=== PATIENT | female | born 1955 | race Caucasian/White ===

== ENCOUNTER → 2024-01-06 | Outpatient (CLI) | payer MEDICARE, OTHER ==
[~2024-01-06] MED LIST: GADOTERATE MEGLUMINE 10 MMOL/20 ML VIAL IV ONE
== END | disposition home or self-care (01) ==
LOC: RAH 12:44
PROVIDERS: ATTEND Family Medicine
DX: R22.1 Localized swelling, mass and lump, neck (principal); G93.89 Other specified disorders of brain; Z86.73 Personal history of transient ischemic attack (TIA), and cerebral infarction without residual deficits
CPT/HCPCS: 70543; A9575

== ENCOUNTER 2025-06-08 16:42 | Inpatient (IN) | payer MEDICARE ==
[~2025-06-08] VITALS: Ht 165.1 cm; Wt 76.2 kg
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
[2025-06-08 17:09] LABS: IMMATURE GRANULOCYTE ABSOLUTE 0.17 K/uL (0-1); NUCLEATED RED BLOOD CELLS 0.3 % (0.0-0.19); PLATELET COUNT (AUTO) 386 K/uL (130-400); RED BLOOD CELL COUNT(AUTO) 3.85 MIL/uL (4.00-5.50); RED CELL DISTRIBUTION WIDTH 20.5 % (11.0-15.5); WHITE BLOOD COUNT (AUTO) 19.7 K/uL (4.8-10.8)
[2025-06-08 17:22] LABS: CREATININE 0.9 mg/dL (0.5-1.0); GLOMERULAR FILTR. RATE CALC 70.0 mL/min (>90); GLUCOSE,RANDOM 140.0 mg/dL (70-105); SODIUM SERUM 122.0 mmol/L (136-145); UREA NITROGEN, BLOOD 23.0 mg/dL (7-18)
[2025-06-08 17:42] VITALS: PULSE 108; RESP 30
[2025-06-08 17:52] LABS: ABG BASE EXCESS -8.1 mmol/L (-2.0-3.0); ABG HCO3 15.0 mmol/L (21.0-28.0); ABG OXYGEN SATURATION 91.2 % (94.0-98.0); ABG PCO2 26 mmHg (32-45); ABG PH 7.386 (7.350-7.450); PO2, ARTERIAL BG 59.9 mmHg (83.0-108.0); TEMPERATURE, CELSIUS BG 37.0 CELSIUS (35.5-37.0); VENT MODE, BG 4 L NC (ROOM AIR)
[2025-06-08] MEDS ORDERED: 0.9%NACL 1000ML 1,000 ML IV ONE (18:00)
[2025-06-08] MEDS ORDERED: furoSEMIDE 100MG VIAL 10 MG/ML VIAL IVP ONE ×2 (18:00→20:00)
[2025-06-08] MEDS: 0.9% NACL 500ML IV.SOLN 500 ML IV ONE (18:05)
[2025-06-08 18:20] VITALS: PULSE 117; RESP 30; O2SAT 96
--- NOTE | 2025-06-08 18:51 | HMCIMG ---
EXAM: CR Chest, 1 View. CLINICAL HISTORY: SHORTNESS A BREATH COMPARISON: None provided. FINDINGS: There is bilateral perihilar and bibasilar airspace disease that may reflect pulmonary edema. Small bilateral pleural effusions. No pneumothorax. Mild to moderate cardiomegaly and pulmonary vascular congestion. IMPRESSION: 1. Bilateral perihilar and bibasilar airspace disease, possibly representing pulmonary edema, with small bilateral pleural effusions. 2. Mild to moderate cardiomegaly and pulmonary vascular congestion. /Lee Vining
--- NOTE | 2025-06-08 19:38 | EKG ---
[facility] Test Date: 2025-06-08 Test Time: 16:55:33 Pat Name: HUGO WYLIE Department: EDH Room: ED Gender: F Authorization Rep: [id number] Requested By: OLVIN DING Order Number: [id number] Reading MD: Rivas Taveras Measurements Intervals [place] Rate: 109 P: 48 [place]: 153 QRS: 7 QRSD: 90 T: 44 QT: 354 QTc: 470 Interpretive Statements Sinus tachycardia Atrial premature complexes Probable left atrial enlargement Low voltage, precordial leads Nonspecific repol abnormality, diffuse leads No previous ECG available for comparison Electronically Signed On 06-08-2025 21:21:25 GLAZE SPRAYER by Rivas Taveras Please click the below link to view image of tracing.
--- NOTE | 2025-06-08 19:58 | HP ---
[facility] Date of Service: Jun 08, 2025 Time of Service: 19:58 PCP: Sergo Diallo HISTORY OF PRESENT ILLNESS: This is a 69-year-old female past medical history of emphysema peripheral neuropathy, atrial fibrillation and hyperthyroidism who was brought by EMS to the ED for complaints of shortness of breaths,dry cough and generalized body weakness which started for the past 3 weeks and getting worse this past few days.Patient reports she lives alone and a current heavy cigarette smoker 1 pack/day.As per patient she has been going to her PCP every week x 3 weeks and was started on steroids prednisone and inhaler and patient also reports was admitted for having atrial fibrillation last 05/09/25 and was seen by at [facility]. Patient reports has not seen a fur sewer.Patient complaints of chest tightness with dry cough for the past 3 weeks but has not improved and its getting worse so she decided to come to the ED .On further evaluation ,patient was asked by the undersigned if it come to appoint where she needs to be orally intubated and patient states she is okay and in the meantime she wants to try the Bipap. Seen and examined patient in the ER awake,alert and appears very short of breath,she has a friend at bedside and helping her from time to time with medical history as patient appears anxious as well.Patient denies chest pain,palpitation,nausea,vomiting and fever. Latest vital signs temperature 98.1, heart rate 110, respiration 35, blood pressure 140/56 saturation 96 on BiPAP 40% FiO2. Labs: WBC 19 with negative left shift of neutrophils 84, hemoglobin 9, hematocrit 30, platelet count 386. Sodium 122, chloride 93, CO2 18, BUN 23, glucose 140, lactic acid 3.1 troponin 112 BNP 3370. D-dimer 3746, PT 15, INR 1.4 PTT 28. Influenza type a and B negative SARS COVID negative. Chest x-ray result revealed bilateral perihilar and bibasilar airspace disease possibly representing pulmonary edema with small bilateral pleural effusion. [id number] cardiomegaly and pulmonary vascular congestion. While in the ER patient received Solu-Medrol 125 mg IV, albuterol two unit dose via inhalation, levofloxacin 750 mg IV, Protonix 40 mg, NS 500 mL bolus, Lasix 80 mg IV and morphine 2 mg IV. Patient was started on Precedex per ICU recommendation. Admit patient for further medical management. REVIEW OF SYSTEMS CONSTITUTIONAL: Denies fevers, chills, or night sweats. No unintentional weight loss reported. NEUROLOGICAL: Denies headache, amaurosis fugax, motor weakness, sensory deficit, vertigo/spinning sensation, gait abnormalities, or tremors. ENT: No hearing loss, otalgia, otorrhea, rhinitis, rhinorrhea, hoarseness, or sore throat. CARDIOVASCULAR: Denies any exertional angina, dyspnea on exertion, orthopnea, paroxysmal nocturnal dyspnea, palpitations, life-threatening arrhythmias, claudication. PULMONARY: Complaints of shortness of breaths, dry cough and chest tightness x3 weeks Denies phlegm/sputum, hemoptysis, pleuritic chest pain. SLEEP: Denies morning headaches, daytime somnolence or napping. Denies difficulty falling asleep, staying asleep, waking from sleep. Denies knowledge of snoring. GASTROINTESTINAL: Denies any type of dysphagia to either liquids or solids. Denies nausea, vomiting, pyrosis, early satiety, abdominal pain, diarrhea, constipation, or changes in stool consistency or caliber. Denies coffee-ground emesis, hematemesis, hematochezia, or melanotic stools. GENITOURINARY: Denies frequency, urgency, nocturia, hematuria or incontinence (Storage/Irritative symptoms.) Low urinary stream, straining to void, urinary i ntermittency or hesitancy, splitting of the voiding stream, terminal dribbling. ENDOCRINOLOGIC: Denies polyuria, polydipsia, polyphagia or heat/cold intolerances. HEMATOLOGIC: Denies thrombophilia/previous clots, or coagulopathy/bleeding disorders. ONCOLOGIC: Denies personal history of malignancy. DERMATOLOGIC: Denies rashes or pruritus. PSYCHIATRIC: Denies any suicidal or homicidal ideation. Denies hallucinations. PAST MEDICAL HISTORY: [ emphysema peripheral neuropathy, atrial fibrillation and hyperthyroidism ] PAST SURGICAL HISTORY: [Left shoulder fracture 2022 ] PAST SOCIAL HISTORY: [ Patient lives alone. Patient admits to smoking one pack of cigarette a day. Patient denies alcohol and recreational drug use ] FAMILY HISTORY: [ Noncontributory ] Coded Allergies: No Known Drug Allergies (Unverified Allergy, Unknown, 06/08/25) PHYSICAL EXAM GENERAL APPEARANCE: The patient is awake, alert, and oriented,moderate respiratory distress NEUROLOGICAL: Cranial nerves II-XII grossly intact. Motor is 5/5 in bilateral upper and lower extremities proximal to distal. No sensory deficits. HEENT: Face is symmetric. Pupils are equal and reactive. Extraocular movements are intact. NECK: Supple. No JVD. No thyromegaly. No submental, submandibular, pre- /postauricular, occipital or supraclavicular lymphadenopathy. CHEST: Normal chest expansion. No Telemetry. LUNGS: tachypneic CARDIOVASCULAR: Tachycardic Regular. S1 and S2 normal. No appreciable rubs, murmurs or gallops. ABDOMEN: Soft, nontender, and nondistended. There is no rebound, voluntary guarding, or rigidity. : Deferred. Gonzalez. EXTREMITIES: Non-edematous and not cyanotic. No clubbing. Good capillary refill. SKIN: No skin breakdown. Vital Sign (Last 24 Hours) 06/08/25 06/08/25 16:45 18:20 Temp 97.9 Pulse 117 Resp 30 B/P (MAP) 136/67 Pulse Ox 96 O2 Delivery Nasal Cannula* O2 Flow Rate 2 FiO2 40 LABS: Laboratory: Test 06/08/25 18:30 06/08/25 17:51 06/08/25 17:04 06/08/25 17:03 Range/Units Lactic Acid Level 3.1 H 0.8-2.5 mmol/L Blood Gas Specimen Type Arterial Arterial Blood pH 7.386 7.350-7.450 Arterial Blood Partial Pressure CO2 26 L 32-45 mmHg Arterial Blood Partial Pressure O2 59.9 L 83.0-108.0 mmHg Arterial Blood HCO3 15.0 L 21.0-28.0 mmol/L Arterial Blood Oxygen Saturation 91.2 L 94.0-98.0 % Arterial Blood Base Excess -8.1 L -2.0-3.0 mmol/L Blood Gas Temperature 37.0 35.5-37.0 CELSIUS Blood Gas Flow-by 4.00 0.00-15.00 L/min Blood Gas Vent Mode 4 L NC ROOM AIR FiO2 36.0 % Blood Gas Specimen Comment RR DR GONSALVES SARS-CoV-2 Antigen (Rapid) PRESUMPTIVE NEGATIVE NEGATIVE White Blood Count 19.7 H 4.8-10.8 K/uL Red Blood Count 3.85 L 4.00-5.50 MIL/uL Hemoglobin 9.7 L 12.0-16.0 g/dL Hematocrit 30.7 L 36-48 % Mean Corpuscular Volume 79.7 79-99 fL Mean Corpuscular Hemoglobin 25.2 L 27.0-33.0 pg Mean Corpuscular Hemoglobin Concent 31.6 L 32.0-36.0 g/dL Red Cell Distribution Width 20.5 H 11.0-15.5 % Platelet Count 386 130-400 K/uL Mean Platelet Volume 9.4 7.5-10.5 fL Immature Granulocyte % (Auto) 0.9 0-1 % Neutrophils (%) (Auto) 84.5 H 40.0-77.0 % Lymphocytes (%) (Auto) 7.8 L 21.0-51.0 % Monocytes (%) (Auto) 6.7 3.0-13.0 % Eosinophils (%) (Auto) 0.0 0.0-8.0 % Basophils (%) (Auto) 0.1 0.0-5.0 % Neutrophils # (Auto) 16.6 H 1.8-7.7 K/uL Lymphocytes # (Auto) 1.5 1.0-4.8 K/uL Monocytes # (Auto) 1.3 H 0.1-1.0 K/uL Eosinophils # (Auto) 0.00 0.00-0.70 K/uL Basophils # (Auto) 0.01 0.00-0.20 K/uL Absolute Immature Granulocyte (auto 0.17 0-1 K/uL Nucleated Red Blood Cells 0.3 H 0.0-0.19 % White Cell Morphology Comment See comments Red Blood Cell Morphology See comments Sodium Level 122 L 136-145 mmol/L Potassium Level 4.4 3.5-5.1 mmol/L Chloride Level 93 L 101-111 mmol/L Carbon Dioxide Level 18 L 21-32 mmol/L Blood Urea Nitrogen 23 H 7-18 mg/dL Creatinine 0.9 0.5-1.0 mg/dL Glomerular Filtration Rate Calc 70 >90 mL/min Random Glucose 140 H 70-105 mg/dL Total Calcium 8.6 8.5-10.1 mg/dL Magnesium Level 2.10 1.80-2.40 mg/dL Troponin I High Sensitivity 112 *H 4-50 ng/L B-Type Natriuretic Peptide 3370 H 0-100 pg/mL DIAGNOSTICS / RADIOLOGY: [ ] ASSESSMENT: Acute hypoxemic respiratory failure POA Acute CHF exacerbation with possible pulmonary edema POA Elevated troponin likely due to type 2 demand ischemia POA Acute COPD exacerbation POA Nicotine Dependence POA Acute anemia POA Acute leukocytosis POA Moderate Hyponatremia and hypochloremia POA Hyperglycemia POA Lactic acidosis POA Hyperthyroidism POA Peripheral neuropathy POA History of emphysema POA History of atrial fibrillation not on anticoagulation PLAN: We will admit patient in ICU Start on clear liquid We will start Lasix 40 mg IV b.i.d. We will start on levofloxacin 500 mg IV daily for empiric coverage We will start on famotidine 20 mg IV daily for GI prophylaxis We will replace electrolytes as needed per protocol We will add prn medication for fever,pain,cough , nausea and vomiting We will reconcile home meds once medlist available Fluid restriction 1.4 L per day Daily weight and strict I&O Gonzalez care per nursing We will request case management service We will seek critical care consultation We will seek Cardiology consultation We will obtain echocardiogram We will request labs in am Further orders to follow depending on above results Case discussed with attending physician and came up with above treatment and plan of care. ADVANCED CARE PLANNING 1. Which of the following were discussed? Hospice Care - No Therapeutic options - Yes Advance Directives - No Other discussions - 2. Discussed with who? Patient 3. Voluntary nature of this service was explained to the patient? Yes 4. Amount of time spent - 26 min 5. Reviewed by Physician? (if this service was performed by NPP) Yes Patient seen and examined by me. Agree with note by YOKER MACHINE OPERATOR SEE ADDITIONAL ORDERS PER CHART DISCUSSED WITH NURSING STAFF RIGOBERTO TADEO FIXER BOARDING ROOM Jun 08, 2025 19:58
[2025-06-08 20:18] LABS: INFLUENZA TYPE A Negative For Type A (NEGATIVE); INFLUENZA TYPE B Negative For Type B (NEGATIVE)
--- NOTE | 2025-06-08 20:27 | CONS ---
[facility] CONSULTATION NOTE Date Patient Seen: Jun 08, 2025 Time of Visit: 20:30 Supervising Physician: [Dr. Luke Morejon] Reason for Consultation: [Critical care management ] Primary Care Physician: [Dr. Yoel Pierson] Outpatient Specialists: [ ] Inpatient Consults: [[facility] team-ICU ] PROBLEM LIST: Acute hypoxic resp failure requiring BIPAP-POA Sepsis 2/2 community acquired pneumonia-POA NSTEMI-likely type II 2/2 demand ischemia from hypoxia vs. true cardiac etiology-POA- negative for chest pain or ST/T wave abnormality. HEART score 6 points=12-16.6% risk for MACE Possible new-onset CHF with exacerbation-POA Hyperlactatemia-POA Acute infectious encephalopathy-POA Suspected new-onset COPD with exacerbation-POA, in the setting of chronic nicotine disorder Pulmonary edema-POA Bilateral pleural effusions-POA Moderate hyponatremia, suspected acute-POA Sleep deprivation 2/2 current illness-POA History of paroxysmal AFib Chronic nicotine disorder: 61-[id number]-mfwk HX Prior CVA Neck and back surgery Detached retina Hyperthyroid disorder/Graves disease with right thyroid nodule HX of left greater trochanter fracture Medical non-compliance, HX of AMA last hospitalization in [facility] PLAN: -Continue critical care management -Titrate oxygen to keep sats >92%, currently on BIPAP: 04/18 rate 14, FiO2-60% -Start on IV Precedex -Obtain CTA chest to r/o P.E. -IV Lasix 40 mg BID -Prevent CAUTI per nursing, on mcdermott for strict I&O -Start on IV Levaquin and Doxycycline for CAP coverage -Obtain pneumo studies -Duoneb treatment -Solumedrol therapy -I.S q1H x 10 while awake -ACS risk stratification: TSH, lipid panel and HgA1c -Obtain echo in am -Monitor and trend troponin -Most likely, will start on IV Heparin drip per ACS protocol due to moderate score of risk of MACE while we r/o P.E. pending CTA chest -Patient agreed to use nicotine patch -the rest of medical management per primary team HPI: [Per Hospitalist's notes: "This is a 69-year-old female past medical history of emphysema peripheral neuropathy, atrial fibrillation and hyperthyroidism who was brought by EMS to the ED for complaints of shortness of breaths,dry cough and generalized body weakness which started for the past 3 weeks and getting worse this past few days.Patient reports she lives alone and a current heavy cigarette smoker 1 pack/day.As per patient she has been going to her PCP every week x 3 weeks and was started on steroids prednisone and inhaler and patient also reports was admitted for having atrial fibrillation last 05/09/25 and was seen by at [facility] [place]. 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 At the time of my assessment, patient is alert and oriented but severely agitated and can not focus on the interview. She keeps on removing her BiPAP despite repeated explanation of her critical condition. Her best friend is beside her and she gave her permission to get interviewed and to give further information regarding her health and medical condition. Lung sounds are diminished on bilateral upper and has fine rales in bilateral bases. She is currently at 50% FiO2 on BiPAP 10/5 rate of 14. Goals of care were discussed with the patient her best friend verbalizes understanding and agreement. On behalf of BIS team, thank you for the opportunity to participate on Ms. Laine carvajal. PAST MEDICAL HX: see above PAST SURGICAL HX: noncontributory SOCIAL HISTORY: (+) 1-pack/day tobacco x>40 years, denies ETOH, or illicit drug use Coded Allergies: No Known Drug Allergies (Unverified Allergy, Unknown, 06/08/25) REVIEW OF SYSTEMS: 12 point ROS reviewed with patient. Pertinent positives mentioned above. Otherwise negative. PHYSICAL EXAM: GENERAL: alert, awake oriented x 3 HEENT: EOMI, Sclera non icteric, dry mucosa NECK: Supple, no JVD, trachea midline LUNGS: Diminished breath sounds bilateral upper and fine rales on bobby bases. No wheezes HEART: Regular rate and rhythm. Normal S1 and S2, without murmurs, tachycardia ABD: Abdomen soft, nontender. Bowel sounds present EXT: No clubbing cyanosis or edema NEURO: Alert and oriented to person, follows commands, extremely agitated- Precedex started Vital Signs (last 8hr) Date Time Temp Pulse Resp B/P (MAP) Pulse Ox O2 Delivery O2 Flow Rate FiO2 06/08/25 18:20 117 30 40 06/08/25 17:42 108 30 06/08/25 16:45 97.9 98 21 136/67 96 Nasal Cannula* 2 28 06/08/25 16:45 97.9 98 21 136/67 96 Nasal Cannula 2.0 LABS: Hematology Labs: Test 06/08/25 17:03 Range/Units White Blood Count 19.7 H 4.8-10.8 K/uL Red Blood Count 3.85 L 4.00-5.50 MIL/uL Hemoglobin 9.7 L 12.0-16.0 g/dL Hematocrit 30.7 L 36-48 % Mean Corpuscular Volume 79.7 79-99 fL Mean Corpuscular Hemoglobin 25.2 L 27.0-33.0 pg Mean Corpuscular Hemoglobin Concent 31.6 L 32.0-36.0 g/dL Red Cell Distribution Width 20.5 H 11.0-15.5 % Platelet Count 386 130-400 K/uL Mean Platelet Volume 9.4 7.5-10.5 fL Immature Granulocyte % (Auto) 0.9 0-1 % Neutrophils (%) (Auto) 84.5 H 40.0-77.0 % Lymphocytes (%) (Auto) 7.8 L 21.0-51.0 % Monocytes (%) (Auto) 6.7 3.0-13.0 % Eosinophils (%) (Auto) 0.0 0.0-8.0 % Basophils (%) (Auto) 0.1 0.0-5.0 % Neutrophils # (Auto) 16.6 H 1.8-7.7 K/uL Lymphocytes # (Auto) 1.5 1.0-4.8 K/uL Monocytes # (Auto) 1.3 H 0.1-1.0 K/uL Eosinophils # (Auto) 0.00 0.00-0.70 K/uL Basophils # (Auto) 0.01 0.00-0.20 K/uL Absolute Immature Granulocyte (auto 0.17 0-1 K/uL Nucleated Red Blood Cells 0.3 H 0.0-0.19 % White Cell Morphology Comment See comments Red Blood Cell Morphology See comments Chemistry Labs: Test 06/08/25 18:30 06/08/25 17:03 Range/Units Lactic Acid Level 3.1 H 0.8-2.5 mmol/L Sodium Level 122 L 136-145 mmol/L Potassium Level 4.4 3.5-5.1 mmol/L Chloride Level 93 L 101-111 mmol/L Carbon Dioxide Level 18 L 21-32 mmol/L Blood Urea Nitrogen 23 H 7-18 mg/dL Creatinine 0.9 0.5-1.0 mg/dL Glomerular Filtration Rate Calc 70 >90 mL/min Random Glucose 140 H 70-105 mg/dL Total Calcium 8.6 8.5-10.1 mg/dL Magnesium Level 2.10 1.80-2.40 mg/dL Troponin I High Sensitivity 112 *H 4-50 ng/L B-Type Natriuretic Peptide 3370 H 0-100 pg/mL DIAGNOSTICS / RADIOLOGY RESULTS: [ ] PLAN NEURO: Minimize central acting medications as possible. Fall Precautions. Well lighted room through the day and minimize interruptions through the night to prevent acute delirium. PULMONARY: Supplemental 02 as needed Titrate Fio2 to keep Spo2 > or = 90% DuoNebs and CPT as needed IS hourly while awake for pulmonary hygiene Out of bed to chair as tolerated VAP Bundle Vent/BIPAP Settings: [ ] Driving pressure: [ ] P Plat: [ ] Static C: [ ] Static R: [ ] P/F Ratio: [ ] CARDIOVASCULAR: Follow hemodynamics. Titrate vasopressor to keep MAP >65 or systolic blood pressure >95mmHg DRIPS: [Precedex] LINES: [ ] GI & NUTRITION: Continue nutritional support Aspirations precautions Prokinetic agents and laxatives as needed KIDNEYS & ELECTROLYTES: Strict monitoring of intake and output Daily weights Avoid nephrotoxic agents Monitor electrolytes and replace as needed Goal urine output of 30mL/hr or 0.5mL/kg/hr Urine output: [ ] Fluid Balance: [ ] ENDOCRINE: Maintain blood glucose between 100-180 at all times. Insulin sliding scale for blood glucose management INFECTIOUS DISEASE: Trend temperature. Dubois-culture if febrile. Micro: [ ] Antibiotics: [IV Zosyn and Doxycycline ] HEMATOLOGY & COAGULATION: Monitor H&H. Keep Hgb > 7 Transfuse 1 unit of PRBC for Hgb < 7 Transfuse 1 pack of platelets of platelets < 20, 000 Watch for any signs and symptoms of bleeding SKIN: Pressure ulcer prevention per facility protocol Rehab: PT/OT Prophylaxis: GI: [Pepcid ] DVT: [Heparin] Code Status: Full Resuscitation Disposition: [ICU] Other: Total patient care time: 45 minutes JOHN NGUYEN AGACNP Jun 08, 2025 20:27
[2025-06-08 20:32] VITALS: PULSE 103; RESP 25; O2SAT 89
[2025-06-08] MEDS: furoSEMIDE 100MG VIAL 10 MG/ML VIAL IVP ONE (20:37)
[2025-06-08 21:03] LABS: ADD UA MICROSCOPIC YES; APPEARANCE,URINE CLEAR (CLEAR); GLUCOSE, URINE (UA) NEGATIVE (NEGATIVE); LEUKOCYTE ESTERASE ,URINE NEGATIVE Leu/uL (NEGATIVE); NITRATE,URINE NEGATIVE (NEGATIVE); OCCULT BLOOD,URINE NEGATIVE (NEGATIVE)
[2025-06-08 21:08] LABS: INR 1.49 (0.85-1.15)
[2025-06-08 21:11] LABS: SQUAMOUS EPITHELIAL CELL,UR Rare /HPF (0-2)
[2025-06-08 22:20] VITALS: PULSE 98; RESP 30; O2SAT 98
[2025-06-08 22:21] LABS: ABG BASE EXCESS -10.0 mmol/L (-2.0-3.0); ABG HCO3 14.8 mmol/L (21.0-28.0); ABG OXYGEN SATURATION 94.5 % (94.0-98.0); ABG PCO2 30 mmHg (32-45); ABG PH 7.310 (7.350-7.450); PO2, ARTERIAL BG 76.9 mmHg (83.0-108.0); TEMPERATURE, CELSIUS BG 37.0 CELSIUS (35.5-37.0); VENT MODE, BG BIPAP 14,5 (ROOM AIR)
--- NOTE | 2025-06-08 22:57 | NUR ---
CALLED PAULO ([facility]) CONSENTED WITH CHEST CT
[2025-06-08] MEDS: ZOSYN 3.375GM +NS 50ML IV SCH (23:18)
[2025-06-08] MEDS: DOXYCYCLINE 100MG+NS 250ML 250 ML IV SCH (23:18)
[2025-06-08] MEDS: NICOTINE 21 MG/ 24 HR PATCH TD SCH (23:19)
[2025-06-08] MEDS ORDERED: IOHEXOL-350 50ML VIAL IV ONE (23:38)
[2025-06-09] VITALS (93 sets, daily range): BP systolic 94–163; BP diastolic 27–96; PULSE 70–134; RESP 14–35; TEMP 96.6–98.2; O2SAT 95–100
--- NOTE | 2025-06-09 00:12 | NUR ---
Changes made to BiPAP settings as per orders: BiPAP /, R14, 60%
--- NOTE | 2025-06-09 00:57 | HMCIMG ---
EXAM: CTA examination of the chest CLINICAL HISTORY: Rule out pulmonary embolism. TECHNIQUE: Postcontrast thin collimated axial CTA images of the chest were obtained with sagittal and coronal reformatted images also submitted. CT scan is done according to ALARA (As Low as Reasonably Achievable). COMPARISON: None provided. FINDINGS: Moderate pleural effusions bilaterally. Compressive atelectasis and consolidations in the bilateral lower lobes of the lung. Multifocal infiltrates and smooth interstitial thickening in the bilateral lung alejandro, reflecting multifocal pneumonia and pulmonary edema. No pneumothorax or masses evident. Small to medium pericardial effusion. Mild to moderate cardiomegaly. Calcific atherosclerotic disease in the thoracic aorta and coronary arteries. No thoracic aortic aneurysm. Dilated pulmonary trunk measures up to 4.4 cm in diameter. Perihilar vascular congestion. No filling defect or pulmonary thromboembolism is evident Mildly reactive mediastinal lymph nodes. Incidental thyroid nodules. Incidental mildly thickened bilateral adrenal glands. Atherosclerotic calcifications in the abdominal vessels. No acute bony abnormality is evident. Degenerative osseous changes. Chronic compression fracture in the T12 vertebral body with about 70% to 80% height reduction. IMPRESSION: No pulmonary thromboembolism. Small to medium pericardial effusion, cardiomegaly, pulmonary vascular congestion, pulmonary edema, and multifocal pneumonia in the bilateral lung alejandro. Moderate pleural effusions bilaterally. Compressive atelectasis and consolidations in the bilateral lower lobes of the lung. Mildly reactive mediastinal lymph nodes. No pneumothorax. Incidental thyroid nodules recommend ultrasound correlation. Incidental mildly enlarged bilateral adrenal glands, recommend a contrast-enhanced MRI of the adrenals for further characterization, if clinically indicated. /Katherine
[2025-06-09] MEDS: NOREPINEPHRIN 4MG/NS 250ML 250 ML IV SCH (01:11)
[2025-06-09] MEDS: NOREPINEPHRIN 4MG/NS 250ML 250 ML IV ONE (01:11)
[2025-06-09] MEDS ORDERED: PHARMACY COMMUNICATION MISC SCH (03:00)
--- NOTE | 2025-06-09 03:20 | NUR ---
PATIENT ARRIVED ON UNIT TO ROOM 215, NO FAMILY AT BEDSIDE. PATIENT IS UNABLE TO ANSWER ADMISSION QUESTIONS DUE TO BEING ON BIPAP AND ORIENTATION STATUS AND ON PRECEDEX DRIP. NO MEDICATIONS WITH PATIENT PER ER NURSE, FRIEND THAT WAS WITH HER IN ER DEPARTMENT WAS ASKED TO BRING IN MEDICATIONS. ER NURSE STATED IN REPORT PATIENTS SON WAS PRESENT EARLIER AND WAS NOT TOO FAMILIAR WITH PATIENTS HISTORY OR MEDICATIONS DUE TO CONFLICT IN FAMILY DYNAMICS.
[2025-06-09 04:15] LABS: IMMATURE GRANULOCYTE ABSOLUTE 0.20 K/uL (0-1); NUCLEATED RED BLOOD CELLS 0.2 % (0.0-0.19); PLATELET COUNT (AUTO) 323 K/uL (130-400); RED BLOOD CELL COUNT(AUTO) 3.67 MIL/uL (4.00-5.50); RED CELL DISTRIBUTION WIDTH 20.4 % (11.0-15.5); WHITE BLOOD COUNT (AUTO) 17.4 K/uL (4.8-10.8)
[2025-06-09 04:34] LABS: INR 1.54 (0.85-1.15)
[2025-06-09 04:35] LABS: ERYTHROCYTE SEDIMENTATION RATE 20 MM/HR (0-30)
[2025-06-09 05:04] LABS: CREATININE 1.0 mg/dL (0.5-1.0); GLOMERULAR FILTR. RATE CALC 61.0 mL/min (>90); GLUCOSE,RANDOM 141.0 mg/dL (70-105); LDL DIRECT 114.0 mg/dL (0-99); SODIUM SERUM 124.0 mmol/L (136-145); TOTAL PROTEIN, SERUM 6.4 g/dL (6.0-8.3); UREA NITROGEN, BLOOD 28.0 mg/dL (7-18)
[2025-06-09 05:14] LABS: ASPARTATE AMINOTRANSFERASE 1479.0 U/L (10-37)
[2025-06-09 08:20] LABS: ABG BASE EXCESS -11.6 mmol/L (-2.0-3.0); ABG HCO3 12.8 mmol/L (21.0-28.0); ABG OXYGEN SATURATION 95.9 % (94.0-98.0); ABG PCO2 25 mmHg (32-45); ABG PH 7.333 (7.350-7.450); CARBON MONOXIDE 0.6 % (0.5-1.5); DEVICE COMMENT RN BRIZA; PO2, ARTERIAL BG 95.1 mmHg (83.0-108.0); TEMPERATURE, CELSIUS BG 37.0 CELSIUS (35.5-37.0)
[2025-06-09] MEDS: FAMOTIDINE 20MG VIAL IV SCH (08:39)
[2025-06-09 09:01] LABS: SODIUM SERUM 125.0 mmol/L (136-145)
--- NOTE | 2025-06-09 10:25 | PN ---
[facility] PROGRESS NOTE Date of Service: Jun 09, 2025 Time of Service: 10:25 SUBJECTIVE: HISTORY OF PRESENT ILLNESS: This is a 69-year-old female past medical history of emphysema peripheral neuropathy, atrial fibrillation and hyperthyroidism who was brought by EMS to the ED for complaints of shortness of breaths,dry cough and generalized body weakness which started for the past 3 weeks and getting worse this past few days.Patient reports she lives alone and a current heavy cigarette smoker 1 pack/day.As per patient she has been going to her PCP every week x 3 weeks and was started on steroids prednisone and inhaler and patient also reports was admitted for having atrial fibrillation last 05/09/25 and [place] [facility] [place] Patient reports has not seen a discharge specialist.Patient complaints of chest tightness with dry cough for the past 3 weeks but has not improved and its getting worse so she decided to come to the ED .On further evaluation ,patient was asked by the undersigned if it come to appoint where she needs to be orally intubated and patient states she is okay and in the meantime she wants to try t he Bipap. Seen and examined patient in the ER awake,alert and appears very short of breath,she has a friend at bedside and helping her from time to time with medical history as patient appears anxious as well.Patient denies chest pain,palpitation,nausea,vomiting and fever. Latest vital signs temperature 98.1, heart rate 110, respiration 35, blood pressure 140/56 saturation 96 on BiPAP 40% FiO2. Labs: WBC 19 with negative left shift of neutrophils 84, hemoglobin 9, hematocrit 30, platelet count 386. Sodium 122, chloride 93, CO2 18, BUN 23, glucose 140, lactic acid 3.1 troponin 112 BNP 3370. D-dimer 3746, PT 15, INR 1.4 PTT 28. Influenza type a and B negative SARS COVID negative. Chest x-ray result revealed bilateral perihilar and bibasilar airspace disease possibly representing pulmonary edema with small bilateral pleural effusion. [id number]-[id number] cardiomegaly and pulmonary vascular congestion. While in the ER patient received Solu-Medrol 125 mg IV, albuterol two unit dose via inhalation, levofloxacin 750 mg IV, Protonix 40 mg, NS 500 mL bolus, Lasix 80 mg IV and morphine 2 mg IV. Patient was started on Precedex per ICU rec ommendation. Admit patient for further medical management. 06/09/2025: The patient was seen and evaluated bedside in ICU, no family at bedside. Patient is agitated, anxious on max doses of Precedex, saturating 100% with FiO2 60 on BiPAP. Patient is currently on norepinephrine drip 0.05 mcg/mL/kg and heparin drip q.[address] chest showed no pulmonary thromboembolism, small to medium pericardial effusion, cardiomegaly, pulmonary vascular congestion, pulmonary edema and multifocal pneumonia in bilateral lung alejandro. Continue Zosyn, doxycycline, IV Lasix, Solu-Medrol IV. Morning lab showed white count 17.4, sodium 124, bicarb 14, lactic acid 3.7, troponin 178, BNP 3060, AST 1479, ALT 561. Patient has bicarb deficit of 336, we ordered sodium bicarbonate 100 mEq single dose and we will repeat bicarb this evening. Nephrology, Cardiology, critical Care on board we will continue to follow the recommendations. REVIEW OF SYSTEMS CONSTITUTIONAL: Denies fevers, chills, or night sweats. No unintentional weight loss reported. NEUROLOGICAL: Denies headache, amaurosis fugax, motor weakness, sensory deficit, vertigo/spinning sensation, gait abnormalities, or tremors. ENT: No hearing loss, otalgia, otorrhea, rhinitis, rhinorrhea, hoarseness, or sore throat. CARDIOVASCULAR: Denies any exertional angina, dyspnea on exertion, orthopnea, paroxysmal nocturnal dyspnea, palpitations, life-threatening arrhythmias, claudication. PULMONARY: Complaints of shortness of breaths, dry cough and chest tightness x3 weeks Denies phlegm/sputum, hemoptysis, pleuritic chest pain. SLEEP: Denies morning headaches, daytime somnolence or napping. Denies difficulty falling asleep, staying asleep, waking from sleep. Denies knowledge of snoring. GASTROINTESTINAL: Denies any type of dysphagia to either liquids or solids. Denies nausea, vomiting, pyrosis, early satiety, abdominal pain, diarrhea, constipation, or changes in stool consistency or caliber. Denies coffee-ground emesis, hematemesis, hematochezia, or melanotic stools. GENITOURINARY: Denies frequency, urgency, nocturia, hematuria or incontinence (Storage/Irritative symptoms.) Low urinary stream, straining to void, urinary intermittency or hesitancy, splitting of the voiding stream, terminal dribbling. ENDOCRINOLOGIC: Denies polyuria, polydipsia, polyphagia or heat/cold intolerances. HEMATOLOGIC: Denies thrombophilia/previous clots, or coagulopathy/bleeding disorders. ONCOLOGIC: Denies personal history of malignancy. DERMATOLOGIC: Denies rashes or pruritus. PSYCHIATRIC: Denies any suicidal or homicidal ideation. Denies hallucinations. PHYSICAL EXAM GENERAL APPEARANCE: The patient is awake, alert, and oriented,moderate respiratory distress NEUROLOGICAL: Cranial nerves II-XII grossly intact. Motor is 5/5 in bilateral upper and lower extremities proximal to distal. No sensory deficits. HEENT: Face is symmetric. Pupils are equal and reactive. Extraocular movements are intact. NECK: Supple. No JVD. No thyromegaly. No submental, submandibular, pre-/postauricular, occipital or supraclavicular lymphadenopathy. CHEST: Normal chest expansion. No Telemetry. LUNGS: tachypneic CARDIOVASCULAR: Tachycardic Regular. S1 and S2 normal. No appreciable rubs, murmurs or gallops. ABDOMEN: Soft, nontender, and nondistended. There is no rebound, voluntary guarding, or rigidity. : Deferred. Gonzalez. EXTREMITIES: Non-edematous and not cyanotic. No clubbing. Good capillary refill. SKIN: No skin breakdown. Vital Signs (last 8hr) Date Time Temp Pulse Resp B/P (MAP) Pulse Ox O2 Delivery O2 Flow Rate FiO2 06/09/25 09:30 84 24 122/56 (78) 94 06/09/25 09:15 90 24 130/58 (82) 94 06/09/25 09:00 93 24 137/59 (85) 94 06/09/25 08:45 102 29 143/63 (89) 96 06/09/25 08:30 106 24 141/70 (93) 93 06/09/25 08:15 97 34 126/58 (80) 100 06/09/25 08:00 98 Bi-PAP+ 60 06/09/25 08:00 87 28 117/54 (75) 98 06/09/25 08:00 97.5 06/09/25 07:45 92 28 137/61 (86) 99 06/09/25 07:30 106 27 138/66 (90) 99 06/09/25 07:15 105 35 125/96 (106) 96 06/09/25 07:00 105 26 127/78 (94) 87 06/09/25 06:45 81 21 124/55 (78) 100 06/09/25 06:32 77 21 06/09/25 06:30 81 23 117/51 (73) 100 06/09/25 06:29 81 22 60 06/09/25 06:15 80 22 116/51 (72) 100 06/09/25 06:00 84 22 119/56 (77) 100 06/09/25 05:30 83 23 128/56 (80) 100 06/09/25 05:15 80 23 116/51 (72) 100 06/09/25 05:00 80 22 122/53 (76) 100 06/09/25 04:45 88 23 136/58 (84) 100 06/09/25 04:30 92 25 138/64 (88) 100 06/09/25 04:15 86 24 128/59 (82) 100 06/09/25 04:00 93 25 139/63 (88) 100 06/09/25 03:45 87 24 118/61 (80) 100 06/09/25 03:30 87 20 118/61 (80) 100 06/09/25 03:27 96.6 06/09/25 03:15 84 21 130/54 (79) 100 06/09/25 03:10 98.1 89 23 98/42 98 Bi-PAP+ 2.0 40 06/09/25 03:00 80 23 120/52 (74) 100 06/09/25 03:00 99 Bi-PAP+ 60 LABS: Laboratory: Test 06/09/25 08:31 06/09/25 08:18 06/09/25 04:04 06/08/25 20:49 Range/Units Sodium Level 125 L 136-145 mmol/L Lactic Acid Level 3.9 H 0.8-2.5 mmol/L Ammonia 26 11-32 umol/L Blood Gas Specimen Type Arterial Arterial Blood pH 7.333 L 7.350-7.450 Arterial Blood Partial Pressure CO2 25 L 32-45 mmHg Arterial Blood Partial Pressure O2 95.1 83.0-108.0 mmHg Arterial Blood HCO3 12.8 L 21.0-28.0 mmol/L Arterial Blood Oxygen Saturation 95.9 94.0-98.0 % Arterial Blood Base Excess -11.6 L -2.0-3.0 mmol/L Hemoglobin (Blood Gas) 10.6 L 12.0-16.0 g/dL Sodium (Blood Gas) 128 L 136-145 MMOL/L Bedside Potassium (Blood Gas) 4.5 3.4-4.5 MMOL/L Bedside Chloride (Blood Gas) 103 98-107 MMOL/L Bedside Glucose (Blood Gas) 135 H 65-95 MG/DL Bedside Ionized Calcium (Blood Gas) 1.11 L 1.15-1.33 MMOL/L Bedside Lactic Acid (Blood Gas) 4.00 *H 0.36-0.75 MMOL/L Blood Gas Temperature 37.0 35.5-37.0 CELSIUS Blood Gas Respiration Rate 16.0 min. Blood Gas Vent Mode BIPAP12,6 ROOM AIR FiO2 60.0 % Blood Gas PEEP 6 cm H2O Blood Gas Specimen Comment RN DEENA White Blood Count 17.4 H 4.8-10.8 K/uL Red Blood Count 3.67 L 4.00-5.50 MIL/uL Hemoglobin 9.3 L 12.0-16.0 g/dL Hematocrit 29.9 L 36-48 % Mean Corpuscular Volume 81.5 79-99 fL Mean Corpuscular Hemoglobin 25.3 L 27.0-33.0 pg Mean Corpuscular Hemoglobin Concent 31.1 L 32.0-36.0 g/dL Red Cell Distribution Width 20.4 H 11.0-15.5 % Platelet Count 323 130-400 K/uL Mean Platelet Volume 10.0 7.5-10.5 fL Immature Granulocyte % (Auto) 1.1 H 0-1 % Neutrophils (%) (Auto) 90.4 H 40.0-77.0 % Lymphocytes (%) (Auto) 4.4 L 21.0-51.0 % Monocytes (%) (Auto) 4.0 3.0-13.0 % Eosinophils (%) (Auto) 0.0 0.0-8.0 % Basophils (%) (Auto) 0.1 0.0-5.0 % Neutrophils # (Auto) 15.7 H 1.8-7.7 K/uL Lymphocytes # (Auto) 0.8 L 1.0-4.8 K/uL Monocytes # (Auto) 0.7 0.1-1.0 K/uL Eosinophils # (Auto) 0.00 0.00-0.70 K/uL Basophils # (Auto) 0.01 0.00-0.20 K/uL Absolute Immature Granulocyte (auto 0.20 0-1 K/uL Nucleated Red Blood Cells 0.2 H 0.0-0.19 % Erythrocyte Sedimentation Rate 20 0-30 MM/HR Prothrombin Time 15.6 H 9.6-11.6 SEC Prothromb Time International Ratio 1.54 H 0.85-1.15 Activated Partial Thromboplast Time 30.4 26.3-35.5 SEC Potassium Level 4.0 3.5-5.1 mmol/L Chloride Level 95 L 101-111 mmol/L Carbon Dioxide Level 14 L 21-32 mmol/L Blood Urea Nitrogen 28 H 7-18 mg/dL Creatinine 1.0 0.5-1.0 mg/dL Glomerular Filtration Rate Calc 61 >90 mL/min Random Glucose 141 H 70-105 mg/dL Total Calcium 8.0 L 8.5-10.1 mg/dL Magnesium Level 1.90 1.80-2.40 mg/dL Total Bilirubin 1.4 H 0.2-1.0 mg/dL Aspartate Amino Transf (AST/SGOT) 1479 *H 10-37 U/L Alanine Aminotransferase (ALT/SGPT) 561 H 12-78 U/L Alkaline Phosphatase 103 50-136 U/L Troponin I High Sensitivity 178 *H 4-50 ng/L B-Type Natriuretic Peptide 3060 H 0-100 pg/mL Total Protein 6.4 6.0-8.3 g/dL Albumin 2.6 L 3.5-5.0 g/dL Triglycerides Level 63 30-200 mg/dL Cholesterol Level 164 <200 mg/dL LDL Cholesterol 114 H 0-99 mg/dL HDL Cholesterol 29 L 35-85 mg/dL Thyroid Stimulating Hormone (TSH) 1.26 0.36-3.74 uIU/mL Urine Color YELLOW YELLOW Urine Appearance CLEAR CLEAR Urine pH 6.0 5.0-8.0 Urine Specific [place] 1.033 H 1.001-1.031 Urine Protein 100 H NEGATIVE mg/dL Urine Glucose (UA) NEGATIVE NEGATIVE mg/dL Urine Ketones NEGATIVE NEGATIVE mg/dL Urine Occult Blood NEGATIVE NEGATIVE Urine Nitrate NEGATIVE NEGATIVE Urine Bilirubin NEGATIVE NEGATIVE mg/dL Urine Urobilinogen 4.0 H 0.2-1.0 mg/dL Urine Leukocyte Esterase NEGATIVE NEGATIVE [place]/uL Urine RBC 0-1 0-1 /HPF Urine WBC 0-1 0-1 /HPF Urine Squamous Epithelial Cells Rare 0-2 /HPF Urine Bacteria Rare None Seen /HPF Urine Random Sodium 18 L 40-220 mmol/l Test 06/08/25 20:42 06/08/25 19:25 06/08/25 17:51 06/08/25 17:04 Range/Units D-Dimer Quantitative (PE/DVT) 3746 *H 0-500 ng/mL Influenza Type A Antigen Negative For Type A NEGATIVE Influenza Type B Antigen Negative For Type B NEGATIVE Blood Gas Flow-by 4.00 0.00-15.00 L/min SARS-CoV-2 Antigen (Rapid) PRESUMPTIVE NEGATIVE NEGATIVE Test 06/08/25 17:03 Range/Units White Cell Morphology Comment See comments Red Blood Cell Morphology See comments Hemoglobin A1c 5.3 4.0-6.0 % Estimated Average Glucose (eAG) 105 70-126 mg/dL Current Medications Medications (Trade) Dose Ordered Sig/Rossy Route PRN Reason Start Time Stop Time Status Last Admin Dose Admin Acetaminophen (TYLenol 325MG TAB) 650 mg Q4H PRN PO MILD PAIN (1-3) 06/08/25 20:30 07/08/25 20:29 Acetaminophen (TYLenol 325MG TAB) 650 mg Q6H PRN PO TEMPERATURE GREATER THAN 101.5 06/08/25 20:30 07/08/25 20:29 Albuterol (DUOneb) 1 udvial X8HBAMS IH 06/08/25 22:00 07/08/25 21:59 06/09/25 06:32 1 UDVIAL Dexmedetomidine/ Sodium Chloride (PRECEdex 400MCG/ 100ML-NS) 400 mcg PROTOCOL IV 06/08/25 20:00 07/08/25 19:59 06/09/25 06:46 400 MCG Doxycycline Hyclate 250 ml @ 125 mls/hr Q12H IV 06/08/25 23:00 06/18/25 22:59 06/08/25 23:18 125 MLS/HR Famotidine (Pepcid 20mg Vial) 20 mg DAILY IV 06/09/25 09:00 07/09/25 08:59 06/09/25 08:39 20 MG Furosemide (LASix 40MG VIAL) 40 mg BID IVP 06/08/25 21:00 07/08/25 20:59 06/09/25 08:40 40 MG Heparin Sodium (Porcine) (HEParin 5,000 UNIT VIAL) *calculation based on ACTUAL B... AD PRN IV HEPARIN PROTOCOL 06/09/25 04:00 07/09/25 03:59 Heparin Sodium/ Dextrose 250 ml @ 0 mls/hr Q6H IV 06/09/25 04:00 07/09/25 03:59 06/09/25 05:55 11.44 MLS/HR Levofloxacin/ Dextrose 100 ml @ 100 mls/hr Q24H IV 06/09/25 20:00 06/08/25 22:40 DC Nicotine (Nicoderm) 21 mg DAILY TD 06/08/25 23:00 07/08/25 22:59 06/09/25 08:40 21 MG Norepinephrine 250 ml @ 0 mls/hr PROTOCOL IV 06/09/25 01:00 07/09/25 00:59 06/09/25 01:11 10 MLS/HR Ondansetron HCl (zoFRAN 4MG INJ) 4 mg Q6H PRN IV NAUSEA/VOMITING 06/08/25 20:30 07/08/25 20:29 Pharmacy Profile Note (Pharmacy Communication) 1 each ONCE MISC 06/09/25 03:00 06/09/25 03:24 DC Piperacillin Sod/ Tazobactam Sod (Zosyn 3.375gm+NS 50ml) 3.375 gm Q8H IV 06/08/25 23:00 06/18/25 22:59 06/09/25 08:38 3.375 [facility] / [facility]IOLOG[facility]: [place] [address] [address] IMAGING REPORT Signed PATIENT: HUOG WYLIE MR#: [id number] : 1955 SEX: F AGE: 69 LOCATION: [facility] ORDER 51 STATUS: REG ER REPORT#: [id number] SERVICE 1650 REASON: SHORTNESS A BREATH ORDERING PHYSICIAN: 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 CLINICAL HISTORY: SHORTNESS A BREATH COMPARISON: None provided. FINDINGS: There is bilateral perihilar and bibasilar airspace disease that may reflect pulmonary edema. Small bilateral pleural effusions. No pneumothorax. Mild to moderate cardiomegaly and pulmonary vascular congestion. IMPRESSION: 1. Bilateral perihilar and bibasilar airspace disease, possibly representing pulmonary edema, with small bilateral pleural effusions. 2. Mild to moderate cardiomegaly and pulmonary vascular congestion. /[place] DICTATED BY: DARREL GEORGE Jr., MD DATE: 06/08/251949 ELECTRONICALLY SIGNED BY: DARREL GEORGE Jr., MD DATE: 06/08/251949 [place] [id number] IMAGING REPORT Signed PATIENT: HUGO WYLIE MR#: [id number] : 1955 SEX: F AGE: 69 LOCATION: [facility] ORDER 29 STATUS: ADM IN REPORT#: [id number] SERVICE 28 REASON: r/p P.E. ORDERING PHYSICIAN: JOHN NGUYEN AGACNP PROCEDURE: CHES PE - CT CHEST PE PROTOCOL WWO CONT EXAM: CTA examination of the chest CLINICAL HISTORY: Rule out pulmonary embolism. TECHNIQUE: Postcontrast thin collimated axial CTA images of the chest were obtained with sagittal and coronal reformatted images also submitted. CT scan is done according to ALARA (As Low as Reasonably Achievable). COMPARISON: None provided. FINDINGS: Moderate pleural effusions bilaterally. Compressive atelectasis and consolidations in the bilateral lower lobes of the lung. Multifocal infiltrates and smooth interstitial thickening in the bilateral lung alejandro, reflecting multifocal pneumonia and pulmonary edema. No pneumothorax or masses evident. Small to medium pericardial effusion. Mild to moderate cardiomegaly. Calcific atherosclerotic disease in the thoracic aorta and coronary arteries. No thoracic aortic aneurysm. Dilated pulmonary trunk measures up to 4.4 cm in diameter. Perihilar vascular congestion. No filling defect or pulmonary thromboembolism is evident Mildly reactive mediastinal lymph nodes. Incidental thyroid nodules. Incidental mildly thickened bilateral adrenal glands. Atherosclerotic calcifications in the abdominal vessels. No acute bony abnormality is evident. Degenerative osseous changes. Chronic compression fracture in the T12 vertebral body with about 70% to 80% height reduction. IMPRESSION: No pulmonary thromboembolism. Small to medium pericardial effusion, cardiomegaly, pulmonary vascular congestion, pulmonary edema, and multifocal pneumonia in the bilateral lung alejandro. Moderate pleural effusions bilaterally. Compressive atelectasis and consolidations in the bilateral lower lobes of the lung. Mildly reactive mediastinal lymph nodes. No pneumothorax. Incidental thyroid nodules recommend ultrasound correlation. Incidental mildly enlarged bilateral adrenal glands, recommend a contrast-enhanced MRI of the adrenals for further characterization, if clinically indicated. /[place] DICTATED BY: DARREL GEORGE Jr., MD DATE: 06/09/25155 ELECTRONICALLY SIGNED BY: DARREL GEORGE Jr., MD DATE: 06/09/25155 [place] [address] IMAGING REPORT Signed PATIENT: HUGO WYLIE MR#: [id number] : 1955 SEX: F AGE: 69 LOCATION: [facility] ORDER 16 STATUS: ADM IN REPORT#: [id number] SERVICE 0000 REASON: acute chf exacerbation sob ORDERING PHYSICIAN: RIGOBERTO TADEO PROCEDURE: ECHO CMP - ECHO 2-D COMPLETE APPROVED REPORT EXAM: Two-dimensional and M-mode echocardiogram with Doppler and color Doppler. INDICATION ICD: Acute congestive heart failure, shortness of breath 2D Dimensions RVDd 3.1 cm LVEF(%) 26.1 (>50%) LA ESV INDEX (BP) 35.28 mL/m2 IVSd 1.0 (0.7-1.1cm) FS(%) 12 % LVDd 5.0 (3.8-5.6cm) LA (2D) 4.3 (1.6-4.0cm) PWd 1.0 (0.7-1.1cm) Ao Root(2D) 3.4 (2.0-3.7cm) IVSs 1.0 cm LVOT diam 1.9 (1.8-2.4cm) LVDs 4.4 (2.5-4.0cm) PWs 1.6 cm Aortic Valve AoV Vmax 2.2 m/s Ao Peak GR 18.9 mmHg LVOT Vmax 1.6 m/s AoV VTI 0.3 m Ao Mean GR 9.2 mmHg LVOT VTI 0.24 m PATTIE (VMAX) 2.03 cm2 Al P1/2T 129 ms PATTIE (VTI) 2.0 cm2 Mitral Valve MV E Vmax 144.1 cm/s DECEL Time 105 ms MV A Vmax 82.2 cm/s P 1/2 T 34 ms E/A ratio 1.8 MVA (PHT) 6.5 cm2 TDI E/E' Medial 31.4 E/E' Lateral 15.7 Medial E' Peak V 4.59 cm/s Lateral E' Peak V 9.15 cm/s Pulmonary Valve PV Vmax 1.1 m/s PV Mean GR 2.1 mmHg PV Peak GR 4.6 mmHg Tricuspid Valve TR Vmax 2.1 m/s RAP (EST) 8 mmHg RVSP 26.1 mmHg TR Peak GR 18.1 mmHg Left Ventricle The left ventricle is normal size. There is normal LV segmental wall motion. There is normal left ventricular wall thickness. LVEF is 50-55%. The left ventricular diastolic function is normal. Right Ventricle The right ventricle is normal size. The right ventricular systolic function is normal. Atria The left atrium is mildly dilated. The right atrium is mildly dilated. Aortic Valve Aortic valve is trileaflet and opens well. Difficult to assess severity of aortic insufficiency. Would estimate [id number] Multiple vegetations seen on the aortic valve leafelts. Large Right coronary cusp leaflet vegetation seen protruding into the LVOT. Small non coronary cusp leaflet vegetation seen. Small left coronary cusp leaflet vegetation noted. There is no aortic valvular stenosis. Mitral Valve The mitral valve is normal in structure. There is moderate mitral valve regurgitation noted. There is no mitral valve stenosis. Tricuspid Valve The tricuspid valve is normal in structure. There is no tricuspid valve regurgitation noted. Pulmonic Valve The pulmonary valve is normal in structure. There is mild pulmonic valvular regurgitation. Great Vessels The aortic root is normal in size. IVC is not well visualized. Pericardium There is trivail pericardial effusion seen posteriorly Other Information Quality : Technically challenging study due to body habitus and limited cooperation of pt Conclusion LVEF is 50-55%. LVEF is 50-55%. Multiple vegetations seen on the aortic valve leafelts. Large Right coronary cusp leaflet vegetation seen protruding into the LVOT. Small non coronary cusp leaflet vegetation seen. Small left coronary cusp leaflet vegetation noted. Difficult to assess severity of aortic insufficiency. Would estimate [id number] There is moderate mitral valve regurgitation noted. DICTATED BY: BEN BROWN MD DATE: 06/09/25 0723 ELECTRONICALLY SIGNED BY: BEN BROWN MD DATE: 06/09/25 1314 [place] [address] IMAGING REPORT Signed PATIENT: HUGO WYLIE MR#: [id number] : 1955 SEX: F AGE: 69 LOCATION: [facility] ORDER 1204 STATUS: ADM IN REPORT#: [id number] SERVICE 1203 REASON: PICC placement ORDERING PHYSICIAN: VY FOOTE MD PROCEDURE: CXR1VW - CHEST 1VW CHEST 1VW REASON: PICC placement COMPARISON: Prior chest radiograph from 06/08/2025 is available. FINDINGS: Single view of the chest was obtained. There is cardiomegaly. There is diffuse interstitial pulmonary edema. There is a right-sided PIC catheter with tip in distal superior vena cava.. Mediastinum and bony thorax appear unremarkable. There is surgical changes with interpedicular screws and rods in the cervical spine there is anterior cervical disc fusion with orthopedic plate IMPRESSION: 1. The PICC catheter with the tip in the distal superior vena cava in satisfactory position 2. Cardiomegaly with interstitial pulmonary edema DICTATED BY: NARCISO ANTONIO MD DATE: 06/09/25 1228 ELECTRONICALLY SIGNED BY: NARCISO ANTONIO MD DATE: 06/09/25 1233 ASSESSMENT: Acute hypoxemic respiratory failure POA Sepsis secondary to community acquired pneumonia-POA Aortic insufficiency due to Multiple vegetations seen on the aortic valve leafelts. (2D echo 06/09/2025) Acute CHF exacerbation with possible pulmonary edema POA Elevated troponin likely due to type 2 demand ischemia POA Acute COPD exacerbation POA Nicotine Dependence POA Acute anemia POA Acute leukocytosis POA Moderate Hyponatremia and hypochloremia POA Hyperglycemia POA Lactic acidosis POA Hyperthyroidism POA Peripheral neuropathy POA History of emphysema POA History of atrial fibrillation not on anticoagulation PLAN: Acute hypoxemic respiratory failure POA On Presentation patient's respiratory rate 30, heart rate 108, saturating 96% with2 L nasal cannula Chest x-ray showed bilateral perihilar and bibasilar airspace disease Patient was started on BiPAP, DuoNeb q.4 Patient was started on IV Solu-Medrol 40 mg Q8 IV Patient is high risk for intubation as per critical care team Critical Care on board, we will follow the recommendations. Sepsis secondary to community acquired pneumonia-POA On presentation heart rate 108, respiratory rate 30, white count 19.7, lactic acid 3.1 Chest x-ray showed bilateral perihilar and bibasilar airspace disease CT chest showed multifocal pneumonia bilateral lungs, pulmonary vascular congestion, pulmonary edema Patient has bicarb deficit of 336, we ordered 100 mEq sodium bicarbonate. Continue Zosyn q.8 IV (day 2) , doxycycline q.12h IV (day 2) Patient is on norepinephrine drip at 0.05 mcg/mL /kg We will trend lactic acid Moderate Hyponatremia and hypochloremia POA On presentation sodium 122, chloride 93 Serum osmolality low at 274, urine osmolality normal, BNP 3370 Hyponatremia most likely due to fluid overload Continue IV Lasix 40 mg b.i.d. Nephrology on board, we will follow the recommendations. Aortic insufficiency due to Multiple vegetations seen on the aortic valve leafelts. (2D echo 06/09/2025) 2D echocardiogram showed LVEF 50-55%, normal left ventricular diastolic function, normal right ventricular systolic function Multiple vegetations seen on aortic valve leaflets, difficulty to assess severity of aortic insufficiency, moderate mitral valve regurgitation Continue Zosyn q.8 IV (day 2) , doxycycline q.12h IV (day 2) Pending blood cultures We will Request consultation from Infectious Disease GI Prophylaxis with famotidine 20 mg IV daily DVT prophylaxis from SCDs ATTESTATION BY PHYSICIAN I have seen and examined the patient. I reviewed the documentation, medical decision making, and treatment plan as noted by the resident physician above. I agree with the findings and plan of care. MIKAYLA RAINES MD, ADIL SHAH QUADRI MD Jun 09, 2025 10:25
--- NOTE | 2025-06-09 11:22 | NUR ---
DCP: PENDING Pt on Bipap, appears disoriented and confused, unable to answer questions asked. Sw called pt's friend Mi Vazquez [phone]. 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 Pt has hx of neck surgery in 2009 that pt feels effect her use of left arm. friend reports pt has difficulty with ADLS related to arm. Pt has hx of multiple falls in home, because of arm and refusal to use walker she has. P has also fallen from bed h friend reports is too high for pt. Friend also stated that p has hx of self medicating and over use of inhalers. Pt as children, but poor support from them. friend believes pt would benefit from rehab, but may not agree. Pt has no MPOA. DCP pending till pt improves and is able to discuss.
--- NOTE | 2025-06-09 11:54 | NUR ---
[facility] ICU Skin Assessment: Patient assessed by wound healing team. Patient with no wounds or skin breakdown noted. Assessment and recommendations provided to primary nurse. Education provided.
[2025-06-09] MEDS ORDERED: SODIUM BICARB 8.4% 50ML SYRING 150 MEQ in 0.9%NACL 1000ML 1,000 ML IVP SCH (12:00)
[2025-06-09] MEDS: ZIPRASIDONE MESYLATE 20 MG/VIAL IM ONE ×2 (12:24)
--- NOTE | 2025-06-09 12:33 | HMCIMG ---
CHEST 1VW REASON: PICC placement COMPARISON: Prior chest radiograph from 06/08/2025 is available. FINDINGS: Single view of the chest was obtained. There is cardiomegaly. There is diffuse interstitial pulmonary edema. There is a right-sided PIC catheter with tip in distal superior vena cava.. Mediastinum and bony thorax appear unremarkable. There is surgical changes with interpedicular screws and rods in the cervical spine there is anterior cervical disc fusion with orthopedic plate IMPRESSION: 1. The PICC catheter with the tip in the distal superior vena cava in satisfactory position 2. Cardiomegaly with interstitial pulmonary edema
--- NOTE | 2025-06-09 13:14 | HMCSR ---
APPROVED REPORT EXAM: Two-dimensional and M-mode echocardiogram with Doppler and color Doppler. INDICATION ICD: Acute congestive heart failure, shortness of breath 2D Dimensions RVDd 3.1 cm LVEF(%) 26.1 (>50%) LA ESV INDEX (BP) 35.28 mL/m2 IVSd 1.0 (0.7-1.1cm) FS(%) 12 % LVDd 5.0 (3.8-5.6cm) LA (2D) 4.3 (1.6-4.0cm) PWd 1.0 (0.7-1.1cm) Ao Root(2D) 3.4 (2.0-3.7cm) IVSs 1.0 cm LVOT diam 1.9 (1.8-2.4cm) LVDs 4.4 (2.5-4.0cm) PWs 1.6 cm Aortic Valve AoV Vmax 2.2 m/s Ao Peak GR 18.9 mmHg LVOT Vmax 1.6 m/s AoV VTI 0.3 m Ao Mean GR 9.2 mmHg LVOT VTI 0.24 m PATTIE (VMAX) 2.03 cm2 Al P1/2T 129 ms PATTIE (VTI) 2.0 cm2 Mitral Valve MV E Vmax 144.1 cm/s DECEL Time 105 ms MV A Vmax 82.2 cm/s P 1/2 T 34 ms E/A ratio 1.8 MVA (PHT) 6.5 cm2 TDI E/E' Medial 31.4 E/E' Lateral 15.7 Medial E' Peak V 4.59 cm/s Lateral E' Peak V 9.15 cm/s Pulmonary Valve PV Vmax 1.1 m/s PV Mean GR 2.1 mmHg PV Peak GR 4.6 mmHg Tricuspid Valve TR Vmax 2.1 m/s RAP (EST) 8 mmHg RVSP 26.1 mmHg TR Peak GR 18.1 mmHg Left Ventricle The left ventricle is normal size. There is normal LV segmental wall motion. There is normal left ventricular wall thickness. LVEF is 50-55%. The left ventricular diastolic function is normal. Right Ventricle The right ventricle is normal size. The right ventricular systolic function is normal. Atria The left atrium is mildly dilated. The right atrium is mildly dilated. Aortic Valve Aortic valve is trileaflet and opens well. Difficult to assess severity of aortic insufficiency. Would estimate [id number] Multiple vegetations seen on the aortic valve leafelts. Large Right coronary cusp leaflet vegetation seen protruding into the LVOT. Small non coronary cusp leaflet vegetation seen. Small left coronary cusp leaflet vegetation noted. There is no aortic valvular stenosis. Mitral Valve The mitral valve is normal in structure. There is moderate mitral valve regurgitation noted. There is no mitral valve stenosis. Tricuspid Valve The tricuspid valve is normal in structure. There is no tricuspid valve regurgitation noted. Pulmonic Valve The pulmonary valve is normal in structure. There is mild pulmonic valvular regurgitation. Great Vessels The aortic root is normal in size. IVC is not well visualized. Pericardium There is trivail pericardial effusion seen posteriorly Other Information Quality : Technically challenging study due to body habitus and limited cooperation of pt Conclusion LVEF is 50-55%. LVEF is 50-55%. Multiple vegetations seen on the aortic valve leafelts. Large Right coronary cusp leaflet vegetation seen protruding into the LVOT. Small non coronary cusp leaflet vegetation seen. Small left coronary cusp leaflet vegetation noted. Difficult to assess severity of aortic insufficiency. Would estimate [id number] There is moderate mitral valve regurgitation noted.
[2025-06-09] MEDS: Solu-medROL 40MG VIAL IVP SCH (13:38)
[2025-06-09] MEDS: SODIUM BICARB 50MEQ 50ML VIAL IV ONE (13:39)
[2025-06-09 13:42] LABS: AMPHET/METH SCREEN,URINE NEGATIVE (NEGATIVE); BARBITURATE SCREEN, URINE NEGATIVE (NEGATIVE); CANNABINOID SCREEN,URINE NEGATIVE (NEGATIVE); COCAINE SCREEN,URINE NEGATIVE (NEGATIVE); CREATININE,URINE RANDOM 19.30 mg/dL (30-135); PROTEIN,URINE RANDOM 32.4 mg/dL (0-11.9)
--- NOTE | 2025-06-09 13:49 | PN ---
[facility] PROGRESS NOTE Date Patient Seen: Jun 09, 2025 Time of Visit: 13:37 Supervising Physician: VY FOOTE MD Primary Care Physician: [Dr. Yoel Pierson] Outpatient Specialists: [ ] Inpatient Consults: [[facility] team-ICU ] PROBLEM LIST: Acute hypoxic resp failure requiring BIPAP-POA Sepsis 2/2 community acquired pneumonia-POA NSTEMI-likely type II 2/2 demand ischemia from hypoxia vs. true cardiac etiology-POA- negative for chest pain or ST/T wave abnormality. HEART score 6 points=12-16.6% risk for MACE Possible new-onset CHF with exacerbation-POA Hyperlactatemia-POA Acute infectious encephalopathy-POA Suspected new-onset COPD with exacerbation-POA, in the setting of chronic nicotine disorder Pulmonary edema-POA Bilateral pleural effusions-POA Moderate hyponatremia, suspected acute-POA Sleep deprivation 2/2 current illness-POA History of paroxysmal AFib Chronic nicotine disorder: [id number] HX Prior CVA Neck and back surgery Detached retina Hyperthyroid disorder/Graves disease with right thyroid nodule HX of left greater trochanter fracture Medical non-compliance, HX of AMA last hospitalization in [facility] PLAN: -Continue critical care management -Titrate oxygen to keep sats >92%, currently on BIPAP: 04/18 rate 14, FiO2-60% -Start on IV Precedex -Obtain CTA chest to r/o P.E. -IV Lasix 40 mg BID -Prevent CAUTI per nursing, on mcdermott for strict I&O -Start on IV Levaquin and Doxycycline for CAP coverage -Obtain pneumo studies -Duoneb treatment -Solumedrol therapy -I.S q1H x 10 while awake -ACS risk stratification: TSH, lipid panel and HgA1c -Obtain echo in am -Monitor and trend troponin -Most likely, will start on IV Heparin drip per ACS protocol due to moderate score of risk of MACE while we r/o P.E. pending CTA chest -Patient agreed to use nicotine patch -the rest of medical management per primary team INTERVAL HISTORY: Patient continues on BiPAP, she is hypoxic with respiratory distress, tachypnea and intercostal muscle retractions. Patient maxed out on Precedex and continues to be agitated and anxious Afebrile, no seizures CTA negative for PE, chest x-ray and CT scan of the chest consistent with bilateral pleural effusions and infiltrates No fevers, no chills Patient took off her BiPAP and her O2 saturation dropped to the low 70s on room air REVIEW OF SYSTEMS: 12 point ROS reviewed with patient. Pertinent positives mentioned above. Otherwise negative. PHYSICAL EXAM: GENERAL: alert, awake oriented x 3 HEENT: EOMI, Sclera non icteric, dry mucosa NECK: Supple, no JVD, trachea midline LUNGS: Bilateral crackles, no wheezing HEART: Regular rate and rhythm. Normal S1 and S2, without murmurs, tachycardia ABD: Abdomen soft, nontender. Bowel sounds present EXT: No clubbing cyanosis or edema NEURO: Alert and oriented to person, follows commands, extremely agitated- Precedex started Vital Signs (last 8hr) Date Time Temp Pulse Resp B/P (MAP) Pulse Ox O2 Delivery O2 Flow Rate FiO2 06/09/25 12:00 97.5 06/09/25 10:54 86 25 06/09/25 10:00 94 27 135/58 (83) 95 06/09/25 09:45 99 30 129/60 (83) 98 06/09/25 09:30 84 24 122/56 (78) 94 06/09/25 09:15 90 24 130/58 (82) 94 06/09/25 09:00 93 24 137/59 (85) 94 06/09/25 08:45 102 29 143/63 (89) 96 06/09/25 08:30 106 24 141/70 (93) 93 06/09/25 08:15 97 34 126/58 (80) 100 06/09/25 08:00 98 Bi-PAP+ 60 06/09/25 08:00 87 28 117/54 (75) 98 06/09/25 08:00 97.5 06/09/25 07:45 92 28 137/61 (86) 99 06/09/25 07:30 106 27 138/66 (90) 99 06/09/25 07:15 105 35 125/96 (106) 96 06/09/25 07:00 105 26 127/78 (94) 87 06/09/25 07:00 60 06/09/25 06:45 81 21 124/55 (78) 100 06/09/25 06:32 77 21 06/09/25 06:30 81 23 117/51 (73) 100 06/09/25 06:29 81 22 60 06/09/25 06:15 80 22 116/51 (72) 100 06/09/25 06:00 84 22 119/56 (77) 100 LABS: Hematology Labs: Test 06/09/25 04:04 06/08/25 17:03 Range/Units White Blood Count 17.4 H 4.8-10.8 K/uL Red Blood Count 3.67 L 4.00-5.50 MIL/uL Hemoglobin 9.3 L 12.0-16.0 g/dL Hematocrit 29.9 L 36-48 % Mean Corpuscular Volume 81.5 79-99 fL Mean Corpuscular Hemoglobin 25.3 L 27.0-33.0 pg Mean Corpuscular Hemoglobin Concent 31.1 L 32.0-36.0 g/dL Red Cell Distribution Width 20.4 H 11.0-15.5 % Platelet Count 323 130-400 K/uL Mean Platelet Volume 10.0 7.5-10.5 fL Immature Granulocyte % (Auto) 1.1 H 0-1 % Neutrophils (%) (Auto) 90.4 H 40.0-77.0 % Lymphocytes (%) (Auto) 4.4 L 21.0-51.0 % Monocytes (%) (Auto) 4.0 3.0-13.0 % Eosinophils (%) (Auto) 0.0 0.0-8.0 % Basophils (%) (Auto) 0.1 0.0-5.0 % Neutrophils # (Auto) 15.7 H 1.8-7.7 K/uL Lymphocytes # (Auto) 0.8 L 1.0-4.8 K/uL Monocytes # (Auto) 0.7 0.1-1.0 K/uL Eosinophils # (Auto) 0.00 0.00-0.70 K/uL Basophils # (Auto) 0.01 0.00-0.20 K/uL Absolute Immature Granulocyte (auto 0.20 0-1 K/uL Nucleated Red Blood Cells 0.2 H 0.0-0.19 % Erythrocyte Sedimentation Rate 20 0-30 MM/HR White Cell Morphology Comment See comments Red Blood Cell Morphology See comments Chemistry Labs: Test 06/09/25 11:53 06/09/25 09:01 06/09/25 08:31 06/09/25 04:04 Range/Units Sodium Level 136 136-145 mmol/L Lactic Acid Level 4.6 H 0.8-2.5 mmol/L Procalcitonin 0.09 0.05-0.5 ng/mL Ammonia 26 11-32 umol/L Potassium Level 4.0 3.5-5.1 mmol/L Chloride Level 95 L 101-111 mmol/L Carbon Dioxide Level 14 L 21-32 mmol/L Blood Urea Nitrogen 28 H 7-18 mg/dL Creatinine 1.0 0.5-1.0 mg/dL Glomerular Filtration Rate Calc 61 >90 mL/min Random Glucose 141 H 70-105 mg/dL Total Calcium 8.0 L 8.5-10.1 mg/dL Magnesium Level 1.90 1.80-2.40 mg/dL Total Bilirubin 1.4 H 0.2-1.0 mg/dL Aspartate Amino Transf (AST/SGOT) 1479 *H 10-37 U/L Alanine Aminotransferase (ALT/SGPT) 561 H 12-78 U/L Alkaline Phosphatase 103 50-136 U/L Troponin I High Sensitivity 178 *H 4-50 ng/L B-Type Natriuretic Peptide 3060 H 0-100 pg/mL Total Protein 6.4 6.0-8.3 g/dL Albumin 2.6 L 3.5-5.0 g/dL Triglycerides Level 63 30-200 mg/dL Cholesterol Level 164 <200 mg/dL LDL Cholesterol 114 H 0-99 mg/dL HDL Cholesterol 29 L 35-85 mg/dL Thyroid Stimulating Hormone (TSH) 1.26 0.36-3.74 uIU/mL Test 06/08/25 20:42 06/08/25 17:03 Range/Units Serum Osmolality 274 L 278-305 mOsm/kg Hemoglobin A1c 5.3 4.0-6.0 % Estimated Average Glucose (eAG) 105 70-126 mg/dL Coagulation Labs: Test 06/09/25 11:53 06/09/25 04:04 06/08/25 20:42 Range/Units Activated Partial Thromboplast Time 69.8 #H 26.3-35.5 SEC Prothrombin Time 15.6 H 9.6-11.6 SEC Prothromb Time International Ratio 1.54 H 0.85-1.15 D-Dimer Quantitative (PE/DVT) 3746 *H 0-500 ng/mL DIAGNOSTICS / RADIOLOGY RESULTS: Imaging scans reviewed at bedside. PLAN Weaned off Precedex and try to keep patient on Precedex We will start Geodon instead every 6 hours as needed for agitation Resume IV steroids Follow-up with pending 2D echocardiogram Continue Lasix every 8 hours Continue Zosyn and doxycycline We will start Tamiflu empirically Poor prognosis, family updated at bedside. NEURO: Minimize central acting medications as possible. Fall Precautions. Well lighted room through the day and minimize interruptions through the night to prevent acute delirium. PULMONARY: Supplemental 02 as needed Titrate Fio2 to keep Spo2 > or = 90% DuoNebs and CPT as needed IS hourly while awake for pulmonary hygiene Out of bed to chair as tolerated VAP Bundle Vent/BIPAP Settings: [ ] Driving pressure: [ ] P Plat: [ ] Static C: [ ] Static R: [ ] P/F Ratio: [ ] CARDIOVASCULAR: Follow hemodynamics. Titrate vasopressor to keep MAP >65 or systolic blood pressure >95mmHg DRIPS: [Precedex] LINES: [ ] GI & NUTRITION: Continue nutritional support Aspirations precautions Prokinetic agents and laxatives as needed KIDNEYS & ELECTROLYTES: Strict monitoring of intake and output Daily weights Avoid nephrotoxic agents Monitor electrolytes and replace as needed Goal urine output of 30mL/hr or 0.5mL/kg/hr Urine output: [ ] Fluid Balance: [ ] ENDOCRINE: Maintain blood glucose between 100-180 at all times. Insulin sliding scale for blood glucose management INFECTIOUS DISEASE: Trend temperature. Dubois-culture if febrile. Micro: [ ] Antibiotics: [IV Zosyn and Doxycycline ] HEMATOLOGY & COAGULATION: Monitor H&H. Keep Hgb > 7 Transfuse 1 unit of PRBC for Hgb < 7 Transfuse 1 pack of platelets of platelets < 20, 000 Watch for any signs and symptoms of bleeding SKIN: Pressure ulcer prevention per facility protocol Rehab: PT/OT Prophylaxis: GI: [Pepcid ] DVT: [Heparin] Code Status: Full Resuscitation Disposition: [ICU] Other: Total patient care time: 35 minutes I personally scribed for VY FOOTE MD ([email or web address]) on 06/09/25 at 13:48. Electronically submitted by Mark Singh ([email or web address]). VY FOOTE MD Jun 09, 2025 13:48
--- NOTE | 2025-06-09 15:56 | CONS ---
NEPHROLOGY CONSULTATION NOTE Date/Time Patient Seen: Jun 09, 2025 9100 Reason for Consultation: Renal failure HISTORY OF PRESENT ILLNESS: This is a 69-year-old female past medical history of emphysema peripheral neuropathy, atrial fibrillation and hyperthyroidism who was brought by EMS to [facility] ED for complaints of shortness of breaths,dry cough and generalized body weakness And she was seen in the ICU, currently on BiPAP Continues on vasopressors Continues on Precedex Imaging studies were noted She was noted to have elevated BUN/creatinine and hyponatremia Latest sodium was 132 mmol/L She was seen in the ICU Family at the bedside Prognosis remains guarded REVIEW OF SYSTEMS: GENERAL: Positive for shortness of breath NEUROLOGIC: Negative for any blurry vision, blind spots, double vision, facial asymmetry, dysphagia, dysarthria, hemiparesis, hemisensory deficits, vertigo, ataxia. HEENT: Negative for any head trauma, neck trauma, neck stiffness, photophobia, phonophobia, sinusitis, rhinitis. CARDIAC: Negative for any chest pain, dyspnea on exertion, paroxysmal nocturnal dyspnea, peripheral edema. PULMONARY: Negative for any shortness of breath, wheezing, COPD, or TB exposure. GASTROINTESTINAL: Negative for any abdominal pain, nausea, vomiting, bright red blood per rectum, melena. GENITOURINARY: Negative for any dysuria, hematuria, incontinence. INTEGUMENTARY: Negative for any rashes, cuts, insect bites. RHEUMATOLOGIC: Negative for any joint pains, photosensitive rashes, history of vasculitis or kidney problems. HEMATOLOGIC: Negative for any abnormal bruising, frequent infections or bleeding. PAST MEDICAL HISTORY: emphysema peripheral neuropathy, atrial fibrillation and hyperthyroidism PAST SURGICAL HISTORY: Left shoulder PAST SOCIAL HISTORY: Former smoker Denies use of alcohol, or illicit drugs FAMILY HISTORY: Noncontributory PHYSICAL EXAM: GENERAL: Alert and oriented x 3. No acute distress. Well-nourished. EYES: EOMI. Anicteric. HENT: Moist mucous membranes. No scleral icterus. No cervical lymphadenopathy. LUNGS: Clear to auscultation bilaterally. No accessory muscle use. CARDIOVASCULAR: Regular rate and rhythm. No murmur. No JVD. ABDOMEN: Soft, non-tender and non-distended. No palpable masses. EXTREMITIES: No edema. Non-tender. SKIN: No rashes or lesions. Warm. NEUROLOGIC: No focal neurological deficits. CN II-XII grossly intact, but not individually tested. PSYCHIATRIC: Cooperative. Appropriate mood and affect. MEDICATIONS: [ ] Current Medications Medications (Trade) Dose Ordered Sig/Rossy Route PRN Reason Start Time Stop Time Status Last Admin Dose Admin Acetaminophen (TYLenol 325MG TAB) 650 mg Q4H PRN PO MILD PAIN (1-3) 06/08/25 20:30 07/08/25 20:29 Acetaminophen (TYLenol 325MG TAB) 650 mg Q6H PRN PO TEMPERATURE GREATER THAN 101.5 06/08/25 20:30 07/08/25 20:29 Albuterol (DUOneb) 1 udvial [id number] IH 06/08/25 22:00 07/08/25 21:59 06/09/25 14:08 1 UDVIAL Budesonide (Pulmicort 0.5 Mg/2ml) 0.5 mg BIDRESP IH 06/09/25 18:00 07/09/25 17:59 Dexmedetomidine/ Sodium Chloride (PRECEdex 400MCG/ 100ML-NS) 400 mcg PROTOCOL IV 06/08/25 20:00 07/08/25 19:59 06/09/25 11:27 400 MCG Dorzolamide/ Timolol (Cosopt Eye Drops) 1 DROP BID OP 06/09/25 21:00 07/09/25 20:59 Doxycycline Hyclate 250 ml @ 125 mls/hr Q12H IV 06/08/25 23:00 06/18/25 22:59 06/09/25 11:26 125 MLS/HR Famotidine (Pepcid 20mg Vial) 20 mg DAILY IV 06/09/25 09:00 06/09/25 13:09 DC 06/09/25 08:39 20 MG Furosemide (LASix 40MG VIAL) 40 mg BID IVP 06/08/25 21:00 07/08/25 20:59 06/09/25 08:40 40 MG Heparin Sodium (Porcine) (HEParin 5,000 UNIT VIAL) *calculation based on ACTUAL B... AD PRN IV HEPARIN PROTOCOL 06/09/25 04:00 07/09/25 03:59 Heparin Sodium/ Dextrose 250 ml @ 0 mls/hr Q6H IV 06/09/25 04:00 07/09/25 03:59 06/09/25 05:55 11.44 MLS/HR Home Med (Home Medication) (Methimazole 5MG TAB) - 0.5 TAB... DAILY PO 06/10/25 09:00 07/10/25 08:59 Latanoprost (Xalatan) 1 DROP HS OD 06/09/25 21:00 07/09/25 20:59 Levofloxacin/ Dextrose 100 ml @ 100 mls/hr Q24H IV 06/09/25 20:00 06/08/25 22:40 DC Methylprednisolone Sodium Succinate (Solu-medROL 40MG) 40 mg Q8H IVP 06/09/25 13:30 07/09/25 13:29 06/09/25 13:38 40 MG Nicotine (Nicoderm) 21 mg DAILY TD 06/08/25 23:00 07/08/25 22:59 06/09/25 08:40 21 MG Norepinephrine 250 ml @ 0 mls/hr PROTOCOL IV 06/09/25 01:00 07/09/25 00:59 06/09/25 01:11 10 MLS/HR Ondansetron HCl (zoFRAN 4MG INJ) 4 mg Q6H PRN IV NAUSEA/VOMITING 06/08/25 20:30 07/08/25 20:29 Oseltamivir Phosphate (Tamiflu) 75 mg BID PO 06/09/25 21:00 06/14/25 20:59 Pantoprazole Sodium (PROTonix 40MG INJ) 40 mg DAILY IVP 06/10/25 09:00 07/10/25 08:59 Pharmacy Profile Note (Pharmacy Communication) 1 each ONCE MISC 06/09/25 03:00 06/09/25 03:24 DC Piperacillin Sod/ Tazobactam Sod (Zosyn 3.375gm+NS 50ml) 3.375 gm Q8H IV 06/08/25 23:00 06/18/25 22:59 06/09/25 08:38 3.375 GM Sodium Bicarbonate 150 meq/Sodium Chloride 1,150 ml @ 100 mls/hr [id number] IVP 06/09/25 12:00 06/09/25 12:29 DC Ziprasidone (Geodon) 10 mg Q6H PRN IM AGITATION/PSYCHOSIS 06/09/25 18:00 07/09/25 17:59 Vital Signs (last 8hr) Date Time Temp Pulse Resp B/P (MAP) Pulse Ox O2 Delivery O2 Flow Rate FiO2 06/09/25 14:34 101 25 50 06/09/25 14:10 98 21 06/09/25 12:00 97.5 06/09/25 10:54 86 25 06/09/25 10:00 94 27 135/58 (83) 95 06/09/25 09:45 99 30 129/60 (83) 98 06/09/25 09:30 84 24 122/56 (78) 94 06/09/25 09:15 90 24 130/58 (82) 94 06/09/25 09:00 93 24 137/59 (85) 94 06/09/25 08:45 102 29 143/63 (89) 96 06/09/25 08:30 106 24 141/70 (93) 93 06/09/25 08:15 97 34 126/58 (80) 100 06/09/25 08:00 98 Bi-PAP+ 60 06/09/25 08:00 87 28 117/54 (75) 98 06/09/25 08:00 97.5 DIAGNOSTICS / RADIOLOGY: [place] [address] IMAGING REPORT Signed PATIENT: HUGO WYLIE MR#: [id number] : 1955 SEX: F AGE: 69 LOCATION: [facility] ORDER 120 STATUS: ADM IN REPORT#: [id number] SERVICE 1203 REASON: PICC placement ORDERING PHYSICIAN: VY FOOTE MD PROCEDURE: CXR1VW - CHEST 1VW CHEST 1VW REASON: PICC placement COMPARISON: Prior chest radiograph from 06/08/2025 is available. FINDINGS: Single view of the chest was obtained. There is cardiomegaly. There is diffuse interstitial pulmonary edema. There is a right-sided PIC catheter with tip in distal superior vena cava.. Mediastinum and bony thorax appear unremarkable. There is surgical changes with interpedicular screws and rods in the cervical spine there is anterior cervical disc fusion with orthopedic plate IMPRESSION: 1. The PICC catheter with the tip in the distal superior vena cava in satisfactory position 2. Cardiomegaly with interstitial pulmonary edema DICTATED BY: NARCISO ANTONIO MD DATE: 06/09/25 1228 ELECTRONICALLY SIGNED BY: NARCISO ANTONIO MD DATE: 06/09/25 1233 PATIENT: HUGO WYLIE MR#: [id number] : 1955 SEX: F AGE: 69 LOCATION: [facility] ORDER 16 STATUS: ADM IN REPORT#: [id number] SERVICE 0000 REASON: acute chf exacerbation sob ORDERING PHYSICIAN: RIGOBERTO TADEO PROCEDURE: ECHO CMP - ECHO 2-D COMPLETE APPROVED REPORT EXAM: Two-dimensional and M-mode echocardiogram with Doppler and color Doppler. INDICATION ICD: Acute congestive heart failure, shortness of breath 2D Dimensions RVDd 3.1 cm LVEF(%) 26.1 (>50%) LA ESV INDEX (BP) 35.28 mL/m2 IVSd 1.0 (0.7-1.1cm) FS(%) 12 % LVDd 5.0 (3.8-5.6cm) LA (2D) 4.3 (1.6-4.0cm) PWd 1.0 (0.7-1.1cm) Ao Root(2D) 3.4 (2.0-3.7cm) IVSs 1.0 cm LVOT diam 1.9 (1.8-2.4cm) LVDs 4.4 (2.5-4.0cm) PWs 1.6 cm Aortic Valve AoV Vmax 2.2 m/s Ao Peak GR 18.9 mmHg LVOT Vmax 1.6 m/s AoV VTI 0.3 m Ao Mean GR 9.2 mmHg LVOT VTI 0.24 m PATTIE (VMAX) 2.03 cm2 Al P1/2T 129 ms PATTIE (VTI) 2.0 cm2 Mitral Valve MV E Vmax 144.1 cm/s DECEL Time 105 ms MV A Vmax 82.2 cm/s P 1/2 T 34 ms E/A ratio 1.8 MVA (PHT) 6.5 cm2 TDI E/E' Medial 31.4 E/E' Lateral 15.7 Medial E' Peak V 4.59 cm/s Lateral E' Peak V 9.15 cm/s Pulmonary Valve PV Vmax 1.1 m/s PV Mean GR 2.1 mmHg PV Peak GR 4.6 mmHg Tricuspid Valve TR Vmax 2.1 m/s RAP (EST) 8 mmHg RVSP 26.1 mmHg TR Peak GR 18.1 mmHg Left Ventricle The left ventricle is normal size. There is normal LV segmental wall motion. There is normal left ventricular wall thickness. LVEF is 50-55%. The left ventricular diastolic function is normal. Right Ventricle The right ventricle is normal size. The right ventricular systolic function is normal. Atria The left atrium is mildly dilated. The right atrium is mildly dilated. Aortic Valve Aortic valve is trileaflet and opens well. Difficult to assess severity of aortic insufficiency. Would estimate [id number] Multiple vegetations seen on the aortic valve leafelts. Large Right coronary cusp leaflet vegetation seen protruding into the LVOT. Small non coronary cusp leaflet vegetation seen. Small left coronary cusp leaflet vegetation noted. There is no aortic valvular stenosis. Mitral Valve The mitral valve is normal in structure. There is moderate mitral valve re gurgitation noted. There is no mitral valve stenosis. Tricuspid Valve The tricuspid valve is normal in structure. There is no tricuspid valve regurgitation noted. Pulmonic Valve The pulmonary valve is normal in structure. There is mild pulmonic valvular regurgitation. Great Vessels The aortic root is normal in size. IVC is not well visualized. Pericardium There is trivail pericardial effusion seen posteriorly Other Information Quality : Technically challenging study due to body habitus and limited c ooperation of pt Conclusion LVEF is 50-55%. LVEF is 50-55%. Multiple vegetations seen on the aortic valve leafelts. Large Right coronary cusp leaflet vegetation seen protruding into the LVOT. Small non coronary cusp leaflet vegetation seen. Small left coronary cusp leaflet vegetation noted. Difficult to assess severity of aortic insufficiency. Would estimate [id number] There is moderate mitral valve regurgitation noted. DICTATED BY: BEN BROWN MD DATE: 06/09/25 0712 ELECTRONICALLY SIGNED BY: BEN BROWN MD DATE: 06/09/25 5164 PATIENT: HUGO WYLIE MR#: [id number] : 1955 SEX: F AGE: 69 LOCATION: [facility] ORDER 29 STATUS: ADM IN REPORT#: [id number] SERVICE 28 REASON: r/p P.E. ORDERING PHYSICIAN: JOHN NGUYENCNHever PROCEDURE: CHES PE - CT CHEST PE PROTOCOL WWO CONT EXAM: CTA examination of the chest CLINICAL HISTORY: Rule out pulmonary embolism. TECHNIQUE: Postcontrast thin collimated axial CTA images of the chest were obtained with sagittal and coronal reformatted images also submitted. CT scan is done according to ALARA (As Low as Reasonably Achievable). COMPARISON: None provided. FINDINGS: Moderate pleural effusions bilaterally. Compressive atelectasis and consolidations in the bilateral lower lobes of the lung. Multifocal infiltrates and smooth interstitial thickening in the bilateral lung alejandro, reflecting multifocal pneumonia and pulmonary edema. No pneumothorax or masses evident. Small to medium pericardial effusion. Mild to moderate cardiomegaly. Calcific atherosclerotic disease in the thoracic aorta and coronary arteries. No thoracic aortic aneurysm. Dilated pulmonary trunk measures up to 4.4 cm in diameter. Perihilar vascular congestion. No filling defect or pulmonary thromboembolism is evident Mildly reactive mediastinal lymph nodes. Incidental thyroid nodules. Incidental mildly thickened bilateral adrenal glands. Atherosclerotic calcifications in the abdominal vessels. No acute bony abnormality is evident. Degenerative osseous changes. Chronic compression fracture in the T12 vertebral body with about 70% to 80% height reduction. IMPRESSION: No pulmonary thromboembolism. Small to medium pericardial effusion, cardiomegaly, pulmonary vascular congestion, pulmonary edema, and multifocal pneumonia in the bilateral lung alejandro. Moderate pleural effusions bilaterally. Compressive atelectasis and consolidations in the bilateral lower lobes of the lung. Mildly reactive mediastinal lymph nodes. No pneumothorax. Incidental thyroid nodules recommend ultrasound correlation. Incidental mildly enlarged bilateral adrenal glands, recommend a contrast-enhanced MRI of the adrenals for further characterization, if clinically indicated. /[place] DICTATED BY: DARREL GEORGE Jr., MD DATE: 06/09/25155 ELECTRONICALLY SIGNED BY: DARREL GEORGE Jr., MD DATE: 06/09/25155 PATIENT: HUGO WYLIE MR#: [id number] : 1955 SEX: F AGE: 69 LOCATION: [facility] ORDER 51 STATUS: REG ER REPORT#: [id number] SERVICE 49 REASON: SHORTNESS A BREATH ORDERING PHYSICIAN: OLVIN DING [employer] MANAGER PROCEDURE: CXR1VW - CHEST 1VW EXAM: CR Chest, 1 View. CLINICAL HISTORY: SHORTNESS A BREATH COMPARISON: None provided. FINDINGS: There is bilateral perihilar and bibasilar airspace disease that may reflect pulmonary edema. Small bilateral pleural effusions. No pneumothorax. Mild to moderate cardiomegaly and pulmonary vascular congestion. IMPRESSION: 1. Bilateral perihilar and bibasilar airspace disease, possibly representing pulmonary edema, with small bilateral pleural effusions. 2. Mild to moderate cardiomegaly and pulmonary vascular congestion. /[place] DICTATED BY: DARREL GEORGE Jr., MD DATE: 06/08/251949 ELECTRONICALLY SIGNED BY: DARREL GEORGE Jr., MD DATE: 06/08/251949 LABORATORY: [ ] Hematology Labs: Test 06/09/25 04:04 06/08/25 17:03 Range/Units White Blood Count 17.4 H 4.8-10.8 K/uL Red Blood Count 3.67 L 4.00-5.50 MIL/uL Hemoglobin 9.3 L 12.0-16.0 g/dL Hematocrit 29.9 L 36-48 % Mean Corpuscular Volume 81.5 79-99 fL Mean Corpuscular Hemoglobin 25.3 L 27.0-33.0 pg Mean Corpuscular Hemoglobin Concent 31.1 L 32.0-36.0 g/dL Red Cell Distribution Width 20.4 H 11.0-15.5 % Platelet Count 323 130-400 K/uL Mean Platelet Volume 10.0 7.5-10.5 fL Immature Granulocyte % (Auto) 1.1 H 0-1 % Neutrophils (%) (Auto) 90.4 H 40.0-77.0 % Lymphocytes (%) (Auto) 4.4 L 21.0-51.0 % Monocytes (%) (Auto) 4.0 3.0-13.0 % Eosinophils (%) (Auto) 0.0 0.0-8.0 % Basophils (%) (Auto) 0.1 0.0-5.0 % Neutrophils # (Auto) 15.7 H 1.8-7.7 K/uL Lymphocytes # (Auto) 0.8 L 1.0-4.8 K/uL Monocytes # (Auto) 0.7 0.1-1.0 K/uL Eosinophils # (Auto) 0.00 0.00-0.70 K/uL Basophils # (Auto) 0.01 0.00-0.20 K/uL Absolute Immature Granulocyte (auto 0.20 0-1 K/uL Nucleated Red Blood Cells 0.2 H 0.0-0.19 % Erythrocyte Sedimentation Rate 20 0-30 MM/HR White Cell Morphology Comment See comments Red Blood Cell Morphology See comments Chemistry Labs: Test 06/09/25 14:34 06/09/25 11:53 06/09/25 09:01 06/09/25 08:31 Range/Units Sodium Level 132 L 136-145 mmol/L Lactic Acid Level 4.6 H 0.8-2.5 mmol/L Procalcitonin 0.09 0.05-0.5 ng/mL Ammonia 26 11-32 umol/L Test 06/09/25 04:04 06/08/25 20:42 06/08/25 17:03 Range/Units Potassium Level 4.0 3.5-5.1 mmol/L Chloride Level 95 L 101-111 mmol/L Carbon Dioxide Level 14 L 21-32 mmol/L Blood Urea Nitrogen 28 H 7-18 mg/dL Creatinine 1.0 0.5-1.0 mg/dL Glomerular Filtration Rate Calc 61 >90 mL/min Random Glucose 141 H 70-105 mg/dL Total Calcium 8.0 L 8.5-10.1 mg/dL Magnesium Level 1.90 1.80-2.40 mg/dL Total Bilirubin 1.4 H 0.2-1.0 mg/dL Aspartate Amino Transf (AST/SGOT) 1479 *H 10-37 U/L Alanine Aminotransferase (ALT/SGPT) 561 H 12-78 U/L Alkaline Phosphatase 103 50-136 U/L Troponin I High Sensitivity 178 *H 4-50 ng/L B-Type Natriuretic Peptide 3060 H 0-100 pg/mL Total Protein 6.4 6.0-8.3 g/dL Albumin 2.6 L 3.5-5.0 g/dL Triglycerides Level 63 30-200 mg/dL Cholesterol Level 164 <200 mg/dL LDL Cholesterol 114 H 0-99 mg/dL HDL Cholesterol 29 L 35-85 mg/dL Thyroid Stimulating Hormone (TSH) 1.26 0.36-3.74 uIU/mL Serum Osmolality 274 L 278-305 mOsm/kg Hemoglobin A1c 5.3 4.0-6.0 % Estimated Average Glucose (eAG) 105 70-126 mg/dL Coagulation Labs: Test 06/09/25 11:53 06/09/25 04:04 06/08/25 20:42 Range/Units Activated Partial Thromboplast Time 69.8 #H 26.3-35.5 SEC Prothrombin Time 15.6 H 9.6-11.6 SEC Prothromb Time International Ratio 1.54 H 0.85-1.15 D-Dimer Quantitative (PE/DVT) 3746 *H 0-500 ng/mL ASSESSMENT: Hyponatremia Acute on chronic renal failure Acute hypoxic resp failure requiring BIPAP-POA Sepsis 2/2 community acquired pneumonia-POA NSTEMI-likely type II 2/2 demand ischemia from hypoxia vs. true cardiac etiology-POA- negative for chest pain or ST/T wave abnormality. HEART score 6 points=12-16.6% risk for MACE Possible new-onset CHF with exacerbation-POA Hyperlactatemia-POA Acute infectious encephalopathy-POA Suspected new-onset COPD with exacerbation-POA, in the setting of chronic nicotine disorder Pulmonary edema-POA Bilateral pleural effusions-POA Moderate hyponatremia, suspected acute-POA Sleep deprivation 2/2 current illness-POA History of paroxysmal AFib Chronic nicotine disorder: [id number] HX Prior CVA Neck and back surgery Detached retina Hyperthyroid disorder/Graves disease with right thyroid nodule HX of left greater trochanter fracture Medical non-compliance, HX of AMA last hospitalization in [facility] PLAN: Labs, diagnostic, radiologic exams reviewed and interpreted by myself and supervising physician. We have reviewed external records in detail Obtain UA, urine electrolytes, urine creatinine, urine osmolality and complete abdominal ultrasound Require close monitoring of renal function and electrolytes Order CBC, CMP, uric acid, TSH, cortisol, serum osmolality and electrolytes in am Continue with antibiotics BiPAP as necessary, for respiratory distress IV pressors as needed Monitor blood pressure adjust medication doses as needed Avoid hypotensive episodes May use Dilaudid 0.5 mg IV every 6 hours as needed for severe pain Monitor blood sugars Strict intake, output, and daily weight should be monitored Please renally adjust medications Avoid nephrotoxic and nonsteroidal drugs Avoid contrast if possible Will continue to monitor renal function, anemia, electrolytes Treatment plan discussed with patient Questions were answered We have discussed with the other team physicians in detail about the care plan We will continue to monitor the patient closely Thank you for allowing us to participate in the care of this patient Total critical care time spent with patient, nursing staff, critical care team over 35 minutes ATTESTATION BY PHYSICIAN I have seen and examined the patient. I reviewed the documentation, medical decision making, and treatment plan as noted by the mid-level provider above. I agree with the findings and plan of care. FLAVIA METCALF MD, [facility] Jun 09, 2025 15:55 FLAVIA METCALF MD Jun 09, 2025 20:20
[2025-06-09 15:58] LABS: ABG BASE EXCESS -7.2 mmol/L (-2.0-3.0); ABG HCO3 16.8 mmol/L (21.0-28.0); ABG OXYGEN SATURATION 94.0 % (94.0-98.0); ABG PCO2 29 mmHg (32-45); ABG PH 7.380 (7.350-7.450); CARBON MONOXIDE 1.0 % (0.5-1.5); PO2, ARTERIAL BG 74.6 mmHg (83.0-108.0); TEMPERATURE, CELSIUS BG 37.0 CELSIUS (35.5-37.0)
[2025-06-09 16:02] LABS: CREATININE 1.1 mg/dL (0.5-1.0); GLOMERULAR FILTR. RATE CALC 55.0 mL/min (>90); GLUCOSE,RANDOM 154.0 mg/dL (70-105); SODIUM SERUM 132.0 mmol/L (136-145); UREA NITROGEN, BLOOD 29.0 mg/dL (7-18)
[2025-06-09] MEDS ORDERED: PoTASSium chloRIDE 20MEQ ER 20 MEQ ERTAB PO PRN (17:00)
[2025-06-09] MEDS ORDERED: PoTASSium chl 10% ELIXIR 20MEQ 20 MEQ/15 ML UDCUP PO PRN (17:00)
--- NOTE | 2025-06-09 18:29 | HMCIMG ---
EXAM: US Abdomen complete CLINICAL HISTORY: Elevated liver function tests. TECHNIQUE: Real-time ultrasound of the abdomen (complete) with image documentation. COMPARISON: CT images from June 08, 2025. FINDINGS: LIVER: Enlarged in size measuring 16 cm. Portal vein demonstrates hepatopetal pattern of flow. No mass or biliary dilatation. The liver contours are smooth. GALLBLADDER: Focal edematous wall thickening of the gallbladder measuring 12 mm in wall thickness with minimal pericholecystic fluid. COMMON BILE DUCT: No dilation. Measures 1 mm PANCREAS: Unremarkable where visualized. The distal pancreas is obscured by overlying bowel gas. KIDNEYS: Right kidney measures 9 x 4.3 x 3.9 cm in craniocaudal, jami-posterior and transverse dimensions. Left kidney measures 9 x 4.3 x 3.9 cm in craniocaudal, jami-posterior and transverse dimensions. Normal renal contours. No renal mass or calculus. No hydronephrosis. SPLEEN: Measures 8.9 x 3.9 x 3.7 cm. Normal in size and echogenicity. No mass identified. AORTA: No aneurysm. Proximal, mid and distal segments of abdominal aorta measures 2.2, 1.6 and 1.7 cm respectively. IVC: Features of IVC plethora with no evidence of significant collapse during inspiration. The intrahepatic segment of the inferior vena cava measures 2.6 cm MISCELLANEOUS: Mild right sided pleural effusion. IMPRESSION: Hepatomegaly. Focal edematous wall thickening of the gallbladder with minimal pericholecystic fluid may be extra cholecystic in etiology and related to underlying CHF seen on the correlative CT examination. Recommend a hepatobiliary (HIDA) scan if there is persistent clinical concern for cholecystitis. Mild right sided pleural effusion. Inferior vena cava plethora. Suggested echo correlation. /[place]
[2025-06-09] MEDS: BUDESONIDE 0.5 MG/2 ML INH IH SCH (18:35)
--- NOTE | 2025-06-09 18:54 | CONS ---
Cardiac Consult Note CONSULT NOTE DATE OF SERVICE: Jun 08, 2025 at 16:42 REFERRING PROVIDER: BEN BROWN MD REASON FOR CONSULT: Abnormal echocardiogram per aortic valve vegetations, aortic insufficiency, congestive heart failure on presentation HPI: We were asked to see this patient in regards to an abnormal echocardiogram as well as congestive heart failure evaluation. Patient has been seen by Dr. Taveras in the past and her last evaluation with him in the clinic was in April of 2022 however when patient was at [facility] in April of 2025 she was evaluated once more by Dr. Taveras in the setting of at was thought to be atrial fibrillation although her friend who is at bedside tells me that she was indeed told it was not atrial fibrillation but they did schedule patient for a 2D echocardiogram in that setting which she did not agree to get done in actually [facility] against medical advice. Over the last 3 weeks the patient has continued to get more short of breath feeling more fatigued and being seen by her PCP on a weekly basis. She actually has been started on steroids as an outpatient started on inhalers and still has not had any significant improvement. She denies any fever at home. She was tachycardic upon arrival. She was afebrile when she was here on arrival and influenza type a and B as well as SARS COVID testing has been negative for patient. Patient's chest x-ray did reveal small bilateral pleural effusion and she has also been diagnosed with community-acquired pneumonia. Patient has a heavy smoker of a pack of smoker of cigarettes daily and has done so for major ity of her life. Patient did have a CT scan done revealing multifocal pneumonia in bilateral lung alejandro. She has been maintained on Zosyn doxycycline as well as Lasix and Solu-Medrol. Patient's 2D echocardiogram revealed preserved left ventricular function with moderate aortic insufficiency and fairly mobile echodensities noted on the aortic valve. ROS: Review of systems is positive for feeling weak fatigued short of breath palpitations some mild lower extremity swelling PMHX: Issues with her neuropathy as well. Nicotine use at 1 pack per day Peripheral neuropathy COPD Peripheral edema PSHX: Neck surgery x3 FH: Noncontributory SOCIAL: Nicotine use as above No alcohol use PHYSICAL EXAMINATION: GENERAL: Patient is in respiratory distress she is using BiPAP upon my arrival and has been on BiPAP all day. HEENT: Normocephalic, atraumatic. CARDIAC: S1-S2 noted borderline tachycardic. With concomitant BiPAP use I can not appreciate any murmurs at this time . LUNGS: No wheezing noted anteriorly ABDOMEN: Bowel sounds present, soft, nontender. EXTREMITIES: No edema bilaterally. No evidence of septic emboli in digits upper and lower nail beds are painted NEUROLOGIC: Cranial nerves 2-12 grossly intact. PSYCHIATRIC: Calm. ASSESSMENT: Aortic valve endocarditis with concomitant moderate aortic insufficiency PLAN: At this time we will continue to cycle blood cultures. I think patient should proceed with transesophageal echocardiography once she becomes more stable from a respiratory standpoint etc. not think she could adequately handle sedation consciously to perform a VICK. Likely would benefit to have anesthesiology on board at the timing of transesophageal echocardiogram which patient may be able to get done on Saturday. We will continue current IV antibiotics but would like to have Infectious Disease on the case as well for further recommendations in regards to antibiotics. Patient will have cycled blood cultures followed. I did talk to her friend at bedside and I did talk to her about the prognosis associated with aortic valve endocarditis and the necessity of treatment for prescribed period of time. Patient should remain in the ICU setting for now. Prognosis guarded Vital Signs 06/08/25 06/08/25 06/08/25 06/08/25 20:32 20:41 22:20 22:20 Temp 98.1 Pulse 103 110 98 98 Resp 25 35 30 30 B/P (MAP) 140/56 Pulse Ox 96 O2 Delivery Bi-PAP+ O2 Flow Rate 2.0 FiO2 50 40 50 06/08/25 06/09/25 06/09/25 06/09/25 23:35 00:13 02:01 02:12 Temp 98.1 98.1 Pulse 91 93 90 83 Resp 24 23 23 21 B/P (MAP) 92/45 95/43 Pulse Ox 100 98 O2 Delivery Bi-PAP+ Bi-PAP+ O2 Flow Rate 2.0 2.0 FiO2 40 60 40 06/09/25 06/09/25 06/09/25 06/09/25 02:13 03:00 03:00 03:10 Temp 98.1 Pulse 83 80 89 Resp 21 23 23 B/P (MAP) 120/52 (74) 98/42 Pulse Ox 99 100 98 O2 Delivery Bi-PAP+ Bi-PAP+ O2 Flow Rate 2.0 FiO2 60 60 40 06/09/25 06/09/25 06/09/25 06/09/25 03:15 03:27 03:30 03:45 Temp 96.6 Pulse 84 87 87 Resp 21 20 24 B/P (MAP) 130/54 (79) 118/61 (80) 118/61 (80) Pulse Ox 100 100 100 06/09/25 06/09/25 06/09/25 06/09/25 04:00 04:15 04:30 04:45 Pulse 93 86 92 88 Resp 23 B/P (MAP) 139/63 (88) 128/59 (82) 138/64 (88) 136/58 (84) Pulse Ox 100 100 100 100 06/09/25 06/09/25 06/09/25 06/09/25 05:00 05:15 05:30 06:00 Pulse 80 80 83 84 Resp 22 B/P (MAP) 122/53 (76) 116/51 (72) 128/56 (80) 119/56 (77) Pulse Ox 100 100 100 100 06/09/25 06/09/25 06/09/25 06/09/25 06:15 06:29 06:30 06:32 Pulse 80 81 81 77 Resp 23 21 B/P (MAP) 116/51 (72) 117/51 (73) Pulse Ox 100 100 FiO2 60 06/09/25 06/09/25 06/09/25 06/09/25 06:45 07:00 07:00 07:15 Pulse 81 105 105 Resp 35 B/P (MAP) 124/55 (78) 127/78 (94) 125/96 (106) Pulse Ox 100 87 96 FiO2 60 06/09/25 06/09/25 06/09/25 06/09/25 07:30 07:45 08:00 08:00 Temp 97.5 Pulse 106 92 87 Resp 28 28 B/P (MAP) 138/66 (90) 137/61 (86) 117/54 (75) Pulse Ox 99 99 98 06/09/25 06/09/25 06/09/25 06/09/25 08:00 08:15 08:30 08:45 Pulse 97 106 102 Resp 34 24 29 B/P (MAP) 126/58 (80) 141/70 (93) 143/63 (89) Pulse Ox 98 100 93 96 O2 Delivery Bi-PAP+ FiO2 60 06/09/25 06/09/25 06/09/25 06/09/25 09:00 09:15 09:30 09:45 Pulse 93 90 84 99 Resp 24 30 B/P (MAP) 137/59 (85) 130/58 (82) 122/56 (78) 129/60 (83) Pulse Ox 94 94 94 98 06/09/25 06/09/25 06/09/25 06/09/25 10:00 10:15 10:30 10:45 Pulse 94 93 87 85 Resp 23 B/P (MAP) 135/58 (83) 136/56 (82) 129/57 (81) 111/51 (71) Pulse Ox 95 96 95 99 FiO2 50 50 50 06/09/25 06/09/25 06/09/25 06/09/25 10:54 11:00 11:15 11:30 Pulse 86 108 115 107 Resp 30 B/P (MAP) 137/77 (97) 120/87 (98) 131/62 (85) Pulse Ox 89 79 96 FiO2 50 50 50 06/09/25 06/09/25 06/09/25 06/09/25 11:45 12:00 12:00 12:00 Temp 97.5 Pulse 110 134 Resp 24 32 B/P (MAP) 135/73 (93) 163/79 (107) Pulse Ox 95 96 95 O2 Delivery Bi-PAP+ FiO2 50 50 60 06/09/25 06/09/25 06/09/25 06/09/25 12:15 12:30 12:45 13:00 Pulse 115 118 104 93 Resp 25 22 B/P (MAP) 134/60 (84) 132/59 (83) 119/70 (86) 116/52 (73) Pulse Ox 96 95 97 97 FiO2 50 50 50 50 06/09/25 06/09/25 06/09/25 06/09/25 13:15 13:30 13:45 14:00 Pulse 100 96 98 105 Resp 28 23 22 24 B/P (MAP) 124/57 (79) 119/49 (72) 139/55 (83) 136/64 (88) Pulse Ox 97 98 94 84 FiO2 50 50 50 50 06/09/25 06/09/25 06/09/25 06/09/25 14:10 14:15 14:30 14:34 Pulse 98 106 102 101 Resp 21 19 25 25 B/P (MAP) 127/43 (71) 137/66 (89) Pulse Ox 94 96 FiO2 50 50 50 06/09/25 06/09/25 06/09/25 06/09/25 14:45 15:00 15:15 15:30 Pulse 102 93 98 115 Resp 26 22 23 25 B/P (MAP) 133/67 (89) 129/53 (78) 125/57 (79) 133/66 (88) Pulse Ox 92 96 93 66 FiO2 50 50 50 50 06/09/25 06/09/25 06/09/25 06/09/25 15:45 16:00 16:00 16:00 Temp 97.5 Pulse 97 90 Resp 27 23 B/P (MAP) 121/47 (71) 127/46 (73) Pulse Ox 90 95 96 O2 Delivery Bi-PAP+ FiO2 50 50 50 06/09/25 06/09/25 16:15 16:30 Pulse 94 93 Resp 25 24 B/P (MAP) 118/66 (83) 116/65 (82) Pulse Ox 95 95 FiO2 50 50 Laboratory Tests Test 06/08/25 19:25 06/08/25 20:42 06/08/25 20:49 06/08/25 22:10 Influenza Type A Antigen Negative For Type A Influenza Type B Antigen Negative For Type B Prothrombin Time 15.2 SEC (9.6-11.6) Prothromb Time International Ratio 1.49 (0.85-1.15) Activated Partial Thromboplast Time 28.6 SEC (26.3-35.5) D-Dimer Quantitative (PE/DVT) 3746 ng/mL (0-500) Sodium Level 123 mmol/L (136-145) Serum Osmolality 274 mOsm/kg (278-305) Urine Color YELLOW (YELLOW) Urine Appearance CLEAR (CLEAR) Urine pH 6.0 (5.0-8.0) Urine Specific [place] 1.033 (1.001-1.031) Urine Protein 100 mg/dL (NEGATIVE) Urine Glucose (UA) NEGATIVE mg/dL (NEGATIVE) Urine Ketones NEGATIVE mg/dL (NEGATIVE) Urine Occult Blood NEGATIVE (NEGATIVE) Urine Nitrate NEGATIVE (NEGATIVE) Urine Bilirubin NEGATIVE mg/dL (NEGATIVE) Urine Urobilinogen 4.0 mg/dL (0.2-1.0) Urine Leukocyte Esterase NEGATIVE Parker/uL Urine RBC 0-1 /HPF (0-1) Urine WBC 0-1 /HPF (0-1) Urine Squamous Epithelial Cells Rare /HPF (0-2) Urine Bacteria Rare /HPF (None Seen) Urine Osmolality 679 mOsm/kg (50-1200) Urine Random Sodium 18 mmol/l (40-220) Lactic Acid Level 3.6 mmol/L (0.8-2.5) Troponin I High Sensitivity 115 ng/L (4-50) Test 06/08/25 22:19 06/08/25 23:00 06/09/25 04:04 06/09/25 05:32 Blood Gas Specimen Type Arterial Arterial Blood pH 7.310 (7.350-7.450) Arterial Blood Partial Pressure CO2 30 mmHg (32-45) Arterial Blood Partial Pressure O2 76.9 mmHg (83.0-108.0) Arterial Blood HCO3 14.8 mmol/L (21.0-28.0) Arterial Blood Oxygen Saturation 94.5 % (94.0-98.0) Arterial Blood Base Excess -10.0 mmol/L (-2.0-3.0) Blood Gas Temperature 37.0 CELSIUS (35.5-37.0) Blood Gas Respiration Rate 14.0 min. Blood Gas Vent Mode BIPAP 14,5 (ROOM AIR) FiO2 50.0 % Blood Gas Specimen Comment RR PAIGE RN Sodium Level 124 mmol/L (136-145) 124 mmol/L (136-145) 125 mmol/L (136-145) White Blood Count 17.4 K/uL (4.8-10.8) Red Blood Count 3.67 MIL/uL (4.00-5.50) Hemoglobin 9.3 g/dL (12.0-16.0) Hematocrit 29.9 % (36-48) Mean Corpuscular Volume 81.5 fL (79-99) Mean Corpuscular Hemoglobin 25.3 pg (27.0-33.0) Mean Corpuscular Hemoglobin Concent 31.1 g/dL (32.0-36.0) Red Cell Distribution Width 20.4 % (11.0-15.5) Platelet Count 323 K/uL (130-400) Mean Platelet Volume 10.0 fL (7.5-10.5) Immature Granulocyte % (Auto) 1.1 % (0-1) Neutrophils (%) (Auto) 90.4 % (40.0-77.0) Lymphocytes (%) (Auto) 4.4 % (21.0-51.0) Monocytes (%) (Auto) 4.0 % (3.0-13.0) Eosinophils (%) (Auto) 0.0 % (0.0-8.0) Basophils (%) (Auto) 0.1 % (0.0-5.0) Neutrophils # (Auto) 15.7 K/uL (1.8-7.7) Lymphocytes # (Auto) 0.8 K/uL (1.0-4.8) Monocytes # (Auto) 0.7 K/uL (0.1-1.0) Eosinophils # (Auto) 0.00 K/uL (0.00-0.70) Basophils # (Auto) 0.01 K/uL (0.00-0.20) Absolute Immature Granulocyte (auto 0.20 K/uL (0-1) Nucleated Red Blood Cells 0.2 % (0.0-0.19) Erythrocyte Sedimentation Rate 20 MM/HR (0-30) Prothrombin Time 15.6 SEC (9.6-11.6) Prothromb Time International Ratio 1.54 (0.85-1.15) Activated Partial Thromboplast Time 30.4 SEC (26.3-35.5) Potassium Level 4.0 mmol/L (3.5-5.1) Chloride Level 95 mmol/L (101-111) Carbon Dioxide Level 14 mmol/L (21-32) Blood Urea Nitrogen 28 mg/dL (7-18) Creatinine 1.0 mg/dL (0.5-1.0) Glomerular Filtration Rate Calc 61 mL/min (>90) Random Glucose 141 mg/dL (70-105) Lactic Acid Level 3.7 mmol/L (0.8-2.5) Total Calcium 8.0 mg/dL (8.5-10.1) Magnesium Level 1.90 mg/dL (1.80-2.40) Total Bilirubin 1.4 mg/dL (0.2-1.0) Aspartate Amino Transf (AST/SGOT) 1479 U/L (10-37) Alanine Aminotransferase (ALT/SGPT) 561 U/L (12-78) Alkaline Phosphatase 103 U/L (50-136) Troponin I High Sensitivity 178 ng/L (4-50) B-Type Natriuretic Peptide 3060 pg/mL (0-100) Total Protein 6.4 g/dL (6.0-8.3) Albumin 2.6 g/dL (3.5-5.0) Triglycerides Level 63 mg/dL (30-200) Cholesterol Level 164 mg/dL (<200) LDL Cholesterol 114 mg/dL (0-99) HDL Cholesterol 29 mg/dL (35-85) Thyroid Stimulating Hormone (TSH) 1.26 uIU/mL (0.36-3.74) Test 06/09/25 08:18 06/09/25 08:31 06/09/25 09:01 06/09/25 11:53 Blood Gas Specimen Type Arterial Arterial Blood pH 7.333 (7.350-7.450) Arterial Blood Partial Pressure CO2 25 mmHg (32-45) Arterial Blood Partial Pressure O2 95.1 mmHg (83.0-108.0) Arterial Blood HCO3 12.8 mmol/L (21.0-28.0) Arterial Blood Oxygen Saturation 95.9 % (94.0-98.0) Arterial Blood Base Excess -11.6 mmol/L (-2.0-3.0) Hemoglobin (Blood Gas) 10.6 g/dL (12.0-16.0) Sodium (Blood Gas) 128 MMOL/L (136-145) Bedside Potassium (Blood Gas) 4.5 MMOL/L (3.4-4.5) Bedside Chloride (Blood Gas) 103 MMOL/L (98-107) Bedside Glucose (Blood Gas) 135 MG/DL (65-95) Bedside Ionized Calcium (Blood Gas) 1.11 MMOL/L (1.15-1.33) Bedside Lactic Acid (Blood Gas) 4.00 MMOL/L (0.36-0.75) Blood Gas Temperature 37.0 CELSIUS (35.5-37.0) Blood Gas Respiration Rate 16.0 min. Blood Gas Vent Mode BIPAP12,6 (ROOM AIR) FiO2 60.0 % Blood Gas PEEP 6 cm H2O Blood Gas Specimen Comment RN DEENA Sodium Level 125 mmol/L (136-145) 136 mmol/L (136-145) Lactic Acid Level 3.9 mmol/L (0.8-2.5) 4.6 mmol/L (0.8-2.5) Ammonia 26 umol/L (11-32) Procalcitonin 0.09 ng/mL (0.05-0.5) Activated Partial Thromboplast Time 69.8 SEC (26.3-35.5) Test 06/09/25 13:20 06/09/25 14:34 06/09/25 15:36 06/09/25 15:56 Urine Random Creatinine 19.30 mg/dL (30-135) Urine Random Total Protein 32.4 mg/dL (0-11.9) Urine Opiates Screen NEGATIVE (NEGATIVE) Urine Barbiturates Screen NEGATIVE (NEGATIVE) Urine Phencyclidine Screen NEGATIVE (NEGATIVE) Urine Amphetamines Screen NEGATIVE (NEGATIVE) Urine Benzodiazepines Screen NEGATIVE (NEGATIVE) Urine Cocaine Screen NEGATIVE (NEGATIVE) Urine Marijuana (THC) Screen NEGATIVE (NEGATIVE) Sodium Level 132 mmol/L (136-145) 132 mmol/L (136-145) Potassium Level 3.4 mmol/L (3.5-5.1) Chloride Level 98 mmol/L (101-111) Carbon Dioxide Level 22 mmol/L (21-32) Blood Urea Nitrogen 29 mg/dL (7-18) Creatinine 1.1 mg/dL (0.5-1.0) Glomerular Filtration Rate Calc 55 mL/min (>90) Random Glucose 154 mg/dL (70-105) Lactic Acid Level 3.5 mmol/L (0.8-2.5) Total Calcium 7.9 mg/dL (8.5-10.1) Blood Gas Specimen Type Arterial Arterial Blood pH 7.380 (7.350-7.450) Arterial Blood Partial Pressure CO2 29 mmHg (32-45) Arterial Blood Partial Pressure O2 74.6 mmHg (83.0-108.0) Arterial Blood HCO3 16.8 mmol/L (21.0-28.0) Arterial Blood Oxygen Saturation 94.0 % (94.0-98.0) Arterial Blood Base Excess -7.2 mmol/L (-2.0-3.0) Hemoglobin (Blood Gas) 10.1 g/dL (12.0-16.0) Sodium (Blood Gas) 133 MMOL/L (136-145) Bedside Potassium (Blood Gas) 3.6 MMOL/L (3.4-4.5) Bedside Chloride (Blood Gas) 104 MMOL/L (98-107) Bedside Glucose (Blood Gas) 158 MG/DL (65-95) Bedside Ionized Calcium (Blood Gas) 1.07 MMOL/L (1.15-1.33) Bedside Lactic Acid (Blood Gas) 4.06 MMOL/L (0.36-0.75) Blood Gas Temperature 37.0 CELSIUS (35.5-37.0) Blood Gas Respiration Rate 16.0 min. Blood Gas Vent Mode BIPAP 15,10 (ROOM AIR) FiO2 50.0 % Blood Gas Specimen Comment LR,KOSTA RN Test 06/09/25 18:15 Activated Partial Thromboplast Time 61.5 SEC (26.3-35.5) Sodium Level 130 mmol/L (136-145) Current Medications Medications Dose Ordered Sig/Rossy Route PRN Reason Start Time Stop Time Status Last Admin Methylprednisolone Sodium Succinate 125 mg ONCE ONCE IVP 06/08/25 17:00 06/08/25 17:16 DC 06/08/25 17:19 Albuterol 2 udvial ONCE ONCE IH 06/08/25 17:00 06/08/25 17:16 DC 06/08/25 17:41 Methylprednisolone Sodium Succinate 125 mg STK-MED ONCE .ROUTE 06/08/25 17:12 06/08/25 17:12 DC Levofloxacin/ Dextrose 750 mg ONCE ONCE IV 06/08/25 17:30 06/08/25 17:34 DC 06/08/25 19:26 Sodium Chloride 1,000 ml @ 0 mls/hr ONCE ONCE IV 06/08/25 18:00 06/08/25 17:59 DC Sodium Chloride 500 ml @ 0 mls/hr ONCE ONCE IV 06/08/25 18:00 06/08/25 18:03 DC 06/08/25 18:05 Furosemide 80 mg ONCE ONCE IVP 06/08/25 18:00 06/08/25 18:01 Cancel Pantoprazole Sodium 40 mg ONCE ONCE PO 06/08/25 18:30 06/08/25 18:31 DC Furosemide 40 mg STK-MED ONCE .ROUTE 06/08/25 19:29 06/08/25 19:30 DC Furosemide 80 mg ONCE ONCE IVP 06/08/25 20:00 06/08/25 20:01 DC Furosemide 80 mg ONCE ONCE IVP 06/08/25 20:00 06/08/25 19:54 DC Morphine Sulfate 2 mg ONCE ONCE IVP 06/08/25 20:00 06/08/25 20:05 DC Dexmedetomidine/ Sodium Chloride 400 mcg PROTOCOL IV 06/08/25 20:00 07/08/25 19:59 06/09/25 16:23 Dexmedetomidine/ Sodium Chloride 400 mcg STK-MED ONCE IV 06/08/25 20:02 06/08/25 20:02 DC Albuterol 1 udvial [id number] IH 06/08/25 22:00 07/08/25 21:59 06/09/25 18:35 Furosemide 40 mg BID IVP 06/08/25 21:00 07/08/25 20:59 06/09/25 08:40 Famotidine 20 mg DAILY IV 06/09/25 09:00 06/09/25 13:09 DC 06/09/25 08:39 Levofloxacin/ Dextrose 100 ml @ 100 mls/hr Q24H IV 06/09/25 20:00 06/08/25 22:40 DC Morphine Sulfate 1 mg ONCE ONCE IVP 06/08/25 20:30 06/08/25 20:31 DC 06/08/25 20:36 Furosemide 40 mg ONCE ONCE IV 06/08/25 21:00 06/08/25 21:01 DC 06/08/25 21:18 Doxycycline Hyclate 250 ml @ 125 mls/hr Q12H IV 06/08/25 23:00 06/18/25 22:59 06/09/25 11:26 Piperacillin Sod/ Tazobactam Sod 3.375 gm Q8H IV 06/08/25 23:00 06/18/25 22:59 06/09/25 16:22 Nicotine 21 mg DAILY TD 06/08/25 23:00 07/08/25 22:59 06/09/25 08:40 Iohexol 50 ml STK-MED ONCE IV 06/08/25 23:38 06/08/25 23:38 DC Norepinephrine 250 ml @ As Directed STK-MED ONCE IV 06/09/25 00:30 06/09/25 00:31 DC Norepinephrine 250 ml @ 0 mls/hr PROTOCOL IV 06/09/25 01:00 07/09/25 00:59 06/09/25 01:11 Pharmacy Profile Note 1 each ONCE MISC 06/09/25 03:00 06/09/25 03:24 DC Heparin Sodium/ Dextrose 250 ml @ 0 mls/hr Q6H IV 06/09/25 04:00 07/09/25 03:59 06/09/25 05:55 Heparin Sodium (Porcine) 5,000 unit ONCE ONCE IV 06/09/25 05:30 06/09/25 05:31 DC 06/09/25 05:30 Sodium Bicarbonate 150 meq/Sodium Chloride 1,150 ml @ 100 mls/hr [id number] IVP 06/09/25 12:00 06/09/25 12:29 DC Ziprasidone 10 mg Q6H ONCE IM 06/09/25 12:21 06/09/25 12:23 DC 06/09/25 12:24 Ziprasidone 20 mg STK-MED ONCE IM 06/09/25 12:22 06/09/25 12:22 DC Sodium Bicarbonate 100 meq ONCE ONCE IV 06/09/25 12:30 06/09/25 12:36 DC 06/09/25 13:39 Oseltamivir Phosphate 75 mg BID PO 06/09/25 21:00 06/14/25 20:59 Dorzolamide/ Timolol 1 DROP BID OP 06/09/25 21:00 07/09/25 20:59 Latanoprost 1 DROP HS OD 06/09/25 21:00 07/09/25 20:59 Home Med (Methimazole 5MG TAB) - 0.5 TAB... DAILY PO 06/10/25 09:00 07/10/25 08:59 Methylprednisolone Sodium Succinate 40 mg Q8H IVP 06/09/25 13:30 07/09/25 13:29 06/09/25 13:38 Budesonide 0.5 mg BIDRESP IH 06/09/25 18:00 07/09/25 17:59 06/09/25 18:35 Pantoprazole Sodium 40 mg DAILY IVP 06/10/25 09:00 07/10/25 08:59 Reported Medications Latanoprost (Latanoprost) 0.005 % Drops, 1 DROP OD HS, ML 0 Refills 06/09/25 Dorzolamide HCl/Timolol Maleat (Dorzolamide-Timolol Eye Drops) 22.3 Mg-6.8 Mg/Ml Drops, 1 DROP OP BID, #10 ML 0 Refills 06/09/25 Methimazole (Methimazole) 5 Mg Tablet, 0.5 TAB PO DAILY for 30 Days, #30 TAB 0 Refills 06/09/25 Discontinued Reported Medications Budesonide/Glycopyr/Formoterol (Breztri Aerosphere Inhaler) 160 Mcg-9 Mcg-4.8 Mcg/Actuation Hfa.aer.ad, 2 PUFF IH BID for 30 Days, #10.7 GM 0 Refills 06/09/25 Methimazole (Methimazole) 5 Mg Tablet, 1 TAB PO DAILY for 30 Days, #30 TAB 0 Refills 06/09/25 BEN BROWN MD Jun 09, 2025 18:54
--- NOTE | 2025-06-09 19:44 | NUR ---
RECEIVED CALL FROMDR. BEN BROWN, REQUESTED ORDERS TO BE INPUT FOR PATIENT FOR 2 SETS OF BLOOD CULTURES, ONE NOW, THEN ONE IN 2 HOURS. MD AWARE OF PATIENT ON ANTIBIOTICS. LABORATORY NOTIFIED.
[2025-06-09 20:20] LABS: ABG BASE EXCESS -5.3 mmol/L (-2.0-3.0); ABG HCO3 17.9 mmol/L (21.0-28.0); ABG OXYGEN SATURATION 97.2 % (94.0-98.0); ABG PCO2 27 mmHg (32-45); ABG PH 7.434 (7.350-7.450); CARBON MONOXIDE 0.7 % (0.5-1.5); PO2, ARTERIAL BG 99.7 mmHg (83.0-108.0); TEMPERATURE, CELSIUS BG 37.0 CELSIUS (35.5-37.0); VENT MODE, BG BIPAP (ROOM AIR)
[2025-06-09] MEDS: LATANOPROST 2.5 ML DROPS OD SCH (21:00)
[2025-06-09] MEDS: DORZOLAMIDE HCL/TIMOLOL MALEAT DROPS 10 ML BOTTLE OP SCH (21:05)
[2025-06-09] MEDS: OSELTAMIVIR PHOSPHATE 75 MG CAP PO SCH (21:05)
[2025-06-10] VITALS (100 sets, daily range): BP systolic 93–144; BP diastolic 30–96; PULSE 70–143; RESP 10–59; TEMP 96.4–98.7; O2SAT 92–100
[2025-06-10 03:38] LABS: ABG BASE EXCESS -6.9 mmol/L (-2.0-3.0); ABG HCO3 15.5 mmol/L (21.0-28.0); ABG OXYGEN SATURATION 96.7 % (94.0-98.0); ABG PCO2 24 mmHg (32-45); ABG PH 7.421 (7.350-7.450); PO2, ARTERIAL BG 84.2 mmHg (83.0-108.0); TEMPERATURE, CELSIUS BG 37.0 CELSIUS (35.5-37.0)
[2025-06-10] MEDS: ZIPRASIDONE MESYLATE 20 MG/VIAL IM PRN (03:49)
[2025-06-10 05:46] LABS: IMMATURE GRANULOCYTE ABSOLUTE 0.13 K/uL (0-1); NUCLEATED RED BLOOD CELLS 0.5 % (0.0-0.19); PLATELET COUNT (AUTO) 213 K/uL (130-400); RED BLOOD CELL COUNT(AUTO) 3.43 MIL/uL (4.00-5.50); RED CELL DISTRIBUTION WIDTH 20.0 % (11.0-15.5); WHITE BLOOD COUNT (AUTO) 17.1 K/uL (4.8-10.8)
[2025-06-10 05:58] LABS: INR 2.12 (0.85-1.15)
[2025-06-10 06:29] LABS: CREATININE 1.4 mg/dL (0.5-1.0); GLOMERULAR FILTR. RATE CALC 41.0 mL/min (>90); GLUCOSE,RANDOM 157.0 mg/dL (70-105); PHOSPHORUS 4.8 mg/dL (2.5-4.9); SODIUM SERUM 132.0 mmol/L (136-145); TOTAL PROTEIN, SERUM 5.5 g/dL (6.0-8.3); UREA NITROGEN, BLOOD 42.0 mg/dL (7-18)
[2025-06-10 06:45] LABS: ASPARTATE AMINOTRANSFERASE 3143.0 U/L (10-37)
[2025-06-10] MEDS: SODIUM BICARB 50MEQ 50ML VIAL IV ONE (09:03)
[2025-06-10] MEDS ORDERED: VANCOMYCIN PROTOCOL PER PHARMACY IV SCH (09:30)
[2025-06-10] MEDS: VANCOMYCIN 1.25 GM/250 ML BAG 250 ML IV ONE (09:41)
--- NOTE | 2025-06-10 09:58 | PN ---
This is a 69-year-old female with a history of hyperthyroidism, chronic obstructive pulmonary disease, positive smoker and peripheral neuropathy. She was admitted 06/08/2025 secondary to sepsis in the setting of multifocal pneumonia and infective endocarditis. She underwent echocardiogram 06/09/2025 which showed an ejection fraction of 50-55% with normal diastolic function, large right coronary cusp leaflet vegetation protruding into the LVOT, small non coronary cusp leaflet vegetation and small left coronary cusp leaflet vegetation with [id number] aortic valve regurgitation, moderate mitral valve regurgitation and trivial pericardial effusion. She is currently in sinus rhythm with frequent PACs with heart rates in the 80s. Her most recent blood pressure is 119/55. CT scan of the chest 06/08/2025 showed small to medium pericardial effusion, cardiomegaly, pulmonary vascular congestion, pulmonary edema and multifocal pneumonia and bilateral lung alejandro with moderate pleural effusions bilaterally and compressive atelectasis and consolidations in bilateral lower lobes of the lung. Mildly reactive mediastinal lymph nodes in mildly enlarged bilateral adrenal glands were seen. White blood count 17.1, hemoglobin 8.5, hematocrit 26.4, platelets 213, creatinine 1.4, BUN 42, potassium 3.8, sodium 132, lactic acid 3.0, total bilirubin 1.4, AST 3143, ALT 1515, alkaline phosphatase 93. Blood cultures x2 negative after 24 hours. She is confused and agitated during the encounter. He is accompanied by family member. Assessment: 1. Sepsis in the setting of multifocal pneumonia. 2. Infective endocarditis involving the aortic valve. 3. Preserved LVEF. 4. Acute delirium. Plan: 1. She presented with sepsis with multifocal pneumonia and was found to have aortic valve endocarditis. She is currently on antibiotic therapy. Infectious Disease has been consulted for further management. 2. Continue to follow blood cultures which are negative after 24 hours. 3. History of atrial fibrillation and CVA is documented in her chart on this admission. We are currently unable to obtain this history from the patient due to acute delirium. If she does have history of both atrial fibrillation and CVA, then there is indication for anticoagulation. 4. We will await the recommendations of Infectious Disease. Vitals/Labs Vital Signs Date Time Temp Pulse Resp B/P (MAP) Pulse Ox O2 Delivery O2 Flow Rate FiO2 06/10/25 08:50 78 21 N/Cannula Oximizer Hi LPM 6.0 44 06/10/25 08:45 119/55 (87) 94 06/10/25 04:00 98.8 Laboratory Tests 06/09/25 11:53 06/09/25 14:34 06/09/25 15:36 06/09/25 18:15 06/09/25 20:02 06/09/25 23:15 06/10/25 05:39 JANEE PERKINS PAC Jun 10, 2025 09:58
--- NOTE | 2025-06-10 11:11 | CONS ---
INFECTIOUS DISEASE CONSULTATION DATE OF SERVICE: 06/10/2025 REQUESTING PHYSICIAN: Dr. [email or web address]. REASON FOR CONSULTATION: Endocarditis. HISTORY OF PRESENT ILLNESS: This is a 69-year-old female with a history of COPD, neuropathy, chronic tobacco use, atrial fibrillation, who presented to the hospital with cough, shortness of breath. The patient's symptoms started 10 days prior to presentation. The patient was found with respiratory failure, admitted to the ICU. CT angiogram of the chest has been done, which came back negative for pulmonary embolism, but showed multifocal pneumonia. The patient is on multiple antibiotics including doxycycline and Zosyn. No documented fever. 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 The patient's blood cultures so far showed no growth. PAST MEDICAL HISTORY: * COPD. * Chronic tobacco use. * Peripheral neuropathy. * Atrial fibrillation. * Hypothyroidism. PAST SURGICAL HISTORY: Left shoulder surgery ALLERGIES: No known drug allergies. CURRENT MEDICATIONS INCLUDE: * Zosyn. * Doxycycline. * Tamiflu. * Tylenol. * Lovenox. SOCIAL HISTORY: She lives alone. No alcohol use, but uses tobacco. FAMILY HISTORY: Noncontributory. REVIEW OF SYSTEMS: Available history obtained from medical record. The patient is very confused, unable to give history. No family at the bedside. PHYSICAL EXAMINATION: GENERAL: An elderly female, awake, confused, restless. VITAL SIGNS: Temperature 98.5, pulse 89, respiratory rate 28, BP 119/55. EYES: No icterus. Pupils equal and reactive. HENT: No oral thrush seen. Moist oral mucosa. NECK: Supple. No JVD or thyromegaly. LUNGS: Crackles bilaterally. No rhonchi. CARDIOVASCULAR: S1 and S2, regular. No murmur heard. ABDOMEN: Full, soft, nontender. Bowel sound is present. CENTRAL NERVOUS SYSTEM: The patient is awake, encephalopathic, confused. Moves her extremities spontaneously. SKIN: No rashes, no itchiness. LYMPHATIC: No peripheral lymphadenopathy. MUSCULOSKELETAL: No joint swelling, erythema or tenderness. BACK: No deformity, no pressure ulcer. LABORATORY DATA: Alkaline phosphatase 93, AST 3143, ALT 1516. Sodium 132, potassium 3.8, BUN 43, creatinine 1.4. WBC 17.1, hemoglobin 8.5, platelets 113. Urine toxicology negative. negative. Blood cultures no growth for 1 day. negative. RADIOLOGY: CT chest shows multifocal pneumonia. 2D echocardiogram shows multiple vegetations on the aortic valve. ASSESSMENT: A 69-year-old female admitted with shortness of breath. Current problems include: * Hypoxic respiratory failure. * Multifocal pneumonia. * endocarditis. * Chronic obstructive pulmonary disease exacerbation. * Chronic tobacco use. * Atrial fibrillation. * Hypothyroidism. * Multifactorial encephalopathy. PLAN: * Start the patient on cefepime. * Start the patient on vancomycin. * Continue doxycycline. * Continue critical care support. * Obtain Brucella serology. * Obtain Bartonella serology. * Obtain Q fever serology. * Follow-up cultures. * Continue DVT prophylaxis. * Continue antiarrhythmic agent. Thank you for allowing me to participate in the care of this patient. TID: [id number] RECEIPT: [id number]
--- NOTE | 2025-06-10 13:38 | PN ---
[facility] PROGRESS NOTE Date of Service: Jun 10, 2025 Time of Service: 13:37 SUBJECTIVE: HISTORY OF PRESENT ILLNESS: This is a 69-year-old female past medical history of emphysema peripheral neuropathy, atrial fibrillation and hyperthyroidism who was brought by EMS to the ED for complaints of shortness of breaths,dry cough and generalized body weakness which started for the past 3 weeks and getting worse this past few days.Patient reports she lives alone and a current heavy cigarette smoker 1 pack/day.As per patient she has been going to her PCP every week x 3 weeks and was started on steroids prednisone and inhaler and patient also reports was admitted for having atrial fibrillation last 05/09/25 [address] [place] [facility] [place] reports has not seen a architect naval.Patient complaints of chest tightness with dry cough for the past 3 weeks but has not improved and its getting worse so she decided to come to the ED .On further evaluation ,patient was asked by the undersigned if it come to appoint where she needs to be orally intubated and patient states she is okay and in the meantime she wants to try t he Bipap. Seen and examined patient in the ER awake,alert and appears very short of breath,she has a friend at bedside and helping her from time to time with medical history as patient appears anxious as well.Patient denies chest pain,palpitation,nausea,vomiting and fever. Latest vital signs temperature 98.1, heart rate 110, respiration 35, blood pressure 140/56 saturation 96 on BiPAP 40% FiO2. Labs: WBC 19 with negative left shift of neutrophils 84, hemoglobin 9, hematocrit 30, platelet count 386. Sodium 122, chloride 93, CO2 18, BUN 23, glucose 140, lactic acid 3.1 troponin 112 BNP 3370. D-dimer 3746, PT 15, INR 1.4 PTT 28. Influenza type a and B negative SARS COVID negative. Chest x-ray result revealed bilateral perihilar and bibasilar airspace disease possibly representing pulmonary edema with small bilateral pleural effusion. Qabb-[id number]-[id number] cardiomegaly and pulmonary vascular congestion. While in the ER patient received Solu-Medrol 125 mg IV, albuterol two unit dose via inhalation, levofloxacin 750 mg IV, Protonix 40 mg, NS 500 mL bolus, Lasix 80 mg IV and morphine 2 mg IV. Patient was started on Precedex per ICU rec ommendation. Admit patient for further medical management. 06/09/2025: The patient was seen and evaluated bedside in ICU, no family at bedside. Patient is agitated, anxious on max doses of Precedex, saturating 100% with FiO2 60 on BiPAP. Patient is currently on norepinephrine drip 0.05 mcg/mL/kg and heparin drip q.[address] chest showed no pulmonary thromboembolism, small to medium pericardial effusion, cardiomegaly, pulmonary vascular congestion, pulmonary edema and multifocal pneumonia in bilateral lung alejandro. Continue Zosyn, doxycycline, IV Lasix, Solu-Medrol IV. Morning lab showed white count 17.4, sodium 124, bicarb 14, lactic acid 3.7, troponin 178, BNP 3060, AST 1479, ALT 561. Patient has bicarb deficit of 336, we ordered sodium bicarbonate 100 mEq single dose and we will repeat bicarb this evening. Nephrology, Cardiology, critical Care on board we will continue to follow the recommendations. 06/10/2025: The patient was seen and evaluated bedside in ICU, no family at bedside. Patient is currently on Precedex, norepinephrine drip. Abdominal ultrasound showed focal edematous wall thickening of gallbladder with minimal pericholecystic fluid, recommended HIDA scan if there is persistent clinical concern for cholecystitis. Lab showed white count trending down to 17.1, lactic acid trending down to 3, AST 3143, ALT 1515. Zosyn has been discontinued by Infectious Disease, patient was started on cefepime and vancomycin. Cardiology recommended transesophageal echocardiography once the patient become more stable. REVIEW OF SYSTEMS CONSTITUTIONAL: Denies fevers, chills, or night sweats. No unintentional weight loss reported. NEUROLOGICAL: Denies headache, amaurosis fugax, motor weakness, sensory deficit, vertigo/spinning sensation, gait abnormalities, or tremors. ENT: No hearing loss, otalgia, otorrhea, rhinitis, rhinorrhea, hoarseness, or sore throat. CARDIOVASCULAR: Denies any exertional angina, dyspnea on exertion, orthopnea, paroxysmal nocturnal dyspnea, palpitations, life-threatening arrhythmias, delonte ication. PULMONARY: Complaints of shortness of breaths, dry cough and chest tightness x3 weeks Denies phlegm/sputum, hemoptysis, pleuritic chest pain. SLEEP: Denies morning headaches, daytime somnolence or napping. Denies difficulty falling asleep, staying asleep, waking from sleep. Denies knowledge of snoring. GASTROINTESTINAL: Denies any type of dysphagia to either liquids or solids. Denies nausea, vomiting, pyrosis, early satiety, abdominal pain, diarrhea, constipation, or changes in stool consistency or caliber. Denies coffee-ground emesis, hematemesis, hematochezia, or melanotic stools. GENITOURINARY: Denies frequency, urgency, nocturia, hematuria or incontinence (Storage/Irritative symptoms.) Low urinary stream, straining to void, urinary intermittency or hesitancy, splitting of the voiding stream, terminal dribbling. ENDOCRINOLOGIC: Denies polyuria, polydipsia, polyphagia or heat/cold intolerances. HEMATOLOGIC: Denies thrombophilia/previous clots, or coagulopathy/bleeding disorders. ONCOLOGIC: Denies personal history of malignancy. DERMATOLOGIC: Denies rashes or pruritus. PSYCHIATRIC: Denies any suicidal or homicidal ideation. Denies hallucinations. PHYSICAL EXAM GENERAL APPEARANCE: The patient is awake, alert, and oriented,moderate respiratory distress NEUROLOGICAL: Cranial nerves II-XII grossly intact. Motor is 5/5 in bilateral upper and lower extremities proximal to distal. No sensory deficits. HEENT: Face is symmetric. Pupils are equal and reactive. Extraocular movements are intact. NECK: Supple. No JVD. No thyromegaly. No submental, submandibular, pre- /postauricular, occipital or supraclavicular lymphadenopathy. CHEST: Normal chest expansion. No Telemetry. LUNGS: tachypneic CARDIOVASCULAR: Tachycardic Regular. S1 and S2 normal. No appreciable rubs, murmurs or gallops. ABDOMEN: Soft, nontender, and nondistended. There is no rebound, voluntary guarding, or rigidity. : Deferred. Gonzalez. EXTREMITIES: Non-edematous and not cyanotic. No clubbing. Good capillary refill. SKIN: No skin breakdown. Vital Signs (last 8hr) Date Time Temp Pulse Resp B/P (MAP) Pulse Ox O2 Delivery O2 Flow Rate FiO2 06/10/25 11:09 97.7 06/10/25 10:45 81 23 120/52 (74) 96 40 06/10/25 10:30 89 23 118/54 (75) 94 40 06/10/25 10:15 93 22 118/47 (70) 93 40 06/10/25 10:00 82 26 115/54 (74) 95 40 06/10/25 09:45 89 26 128/51 (76) 95 40 06/10/25 09:30 75 24 118/49 (72) 96 40 06/10/25 09:15 83 29 127/44 (71) 94 40 06/10/25 09:00 90 26 124/61 (82) 95 40 06/10/25 08:50 78 21 N/Cannula Oximizer Hi LPM 6.0 44 06/10/25 08:45 89 28 119/55 (76) 94 40 06/10/25 08:30 86 24 111/62 (78) 95 40 06/10/25 08:15 88 23 124/40 (68) 100 40 06/10/25 08:00 76 18 108/43 (64) 100 40 06/10/25 07:45 76 20 115/45 (68) 99 40 06/10/25 07:30 73 18 102/43 (62) 99 40 06/10/25 07:15 77 18 110/45 (66) 98 40 06/10/25 07:02 78 18 40 06/10/25 07:00 96.4 06/10/25 07:00 76 18 108/48 (68) 98 40 06/10/25 05:52 71 21 94/42 (59) 100 LABS: Laboratory: Test 06/10/25 12:39 06/10/25 05:39 06/10/25 03:36 06/09/25 20:19 Range/Units Activated Partial Thromboplast Time 81.9 H 26.3-35.5 SEC Fibrinogen 265 180-350 mg/dL Ammonia 24 11-32 umol/L White Blood Count 17.1 H 4.8-10.8 K/uL Red Blood Count 3.43 L 4.00-5.50 MIL/uL Hemoglobin 8.5 L 12.0-16.0 g/dL Hematocrit 26.4 L 36-48 % Mean Corpuscular Volume 77.0 L 79-99 fL Mean Corpuscular Hemoglobin 24.8 L 27.0-33.0 pg Mean Corpuscular Hemoglobin Concent 32.2 32.0-36.0 g/dL Red Cell Distribution Width 20.0 H 11.0-15.5 % Platelet Count 213 # 130-400 K/uL Mean Platelet Volume 9.9 7.5-10.5 fL Immature Granulocyte % (Auto) 0.8 0-1 % Neutrophils (%) (Auto) 88.0 H 40.0-77.0 % Lymphocytes (%) (Auto) 6.9 L 21.0-51.0 % Monocytes (%) (Auto) 4.2 3.0-13.0 % Eosinophils (%) (Auto) 0.0 0.0-8.0 % Basophils (%) (Auto) 0.1 0.0-5.0 % Neutrophils # (Auto) 15.0 H 1.8-7.7 K/uL Lymphocytes # (Auto) 1.2 1.0-4.8 K/uL Monocytes # (Auto) 0.7 0.1-1.0 K/uL Eosinophils # (Auto) 0.00 0.00-0.70 K/uL Basophils # (Auto) 0.01 0.00-0.20 K/uL Absolute Immature Granulocyte (auto 0.13 0-1 K/uL Nucleated Red Blood Cells 0.5 H 0.0-0.19 % Prothrombin Time 20.9 H 9.6-11.6 SEC Prothromb Time International Ratio 2.12 H 0.85-1.15 Sodium Level 132 L 136-145 mmol/L Potassium Level 3.8 3.5-5.1 mmol/L Chloride Level 100 L 101-111 mmol/L Carbon Dioxide Level 18 L 21-32 mmol/L Blood Urea Nitrogen 42 H 7-18 mg/dL Creatinine 1.4 H 0.5-1.0 mg/dL Glomerular Filtration Rate Calc 41 >90 mL/min Random Glucose 157 H 70-105 mg/dL Serum Osmolality 291 278-305 mOsm/kg Lactic Acid Level 3.0 H 0.8-2.5 mmol/L Uric Acid 10.4 H 2.6-7.2 mg/dL Total Calcium 7.4 L 8.5-10.1 mg/dL Phosphorus Level 4.8 2.5-4.9 mg/dL Magnesium Level 1.80 1.80-2.40 mg/dL Total Bilirubin 1.4 H 0.2-1.0 mg/dL Aspartate Amino Transf (AST/SGOT) 3143 *H 10-37 U/L Alanine Aminotransferase (ALT/SGPT) 1515 *H 12-78 U/L Alkaline Phosphatase 93 50-136 U/L Total Protein 5.5 L 6.0-8.3 g/dL Albumin 2.3 L 3.5-5.0 g/dL Blood Gas Specimen Type Arterial Arterial Blood pH 7.421 7.350-7.450 Arterial Blood Partial Pressure CO2 24 L 32-45 mmHg Arterial Blood Partial Pressure O2 84.2 83.0-108.0 mmHg Arterial Blood HCO3 15.5 L 21.0-28.0 mmol/L Arterial Blood Oxygen Saturation 96.7 94.0-98.0 % Arterial Blood Base Excess -6.9 L -2.0-3.0 mmol/L Blood Gas Temperature 37.0 35.5-37.0 CELSIUS Blood Gas Respiration Rate 16.0 min. Blood Gas Vent Mode BIPAP,15,10 ROOM AIR FiO2 40.0 % Blood Gas Specimen Comment RB,[place] Hemoglobin (Blood Gas) 9.7 L 12.0-16.0 g/dL Sodium (Blood Gas) 132 L 136-145 MMOL/L Bedside Potassium (Blood Gas) 3.5 3.4-4.5 MMOL/L Bedside Chloride (Blood Gas) 105 98-107 MMOL/L Bedside Glucose (Blood Gas) 168 H 65-95 MG/DL Bedside Ionized Calcium (Blood Gas) 1.06 L 1.15-1.33 MMOL/L Bedside Lactic Acid (Blood Gas) 2.84 H 0.36-0.75 MMOL/L Test 06/09/25 13:20 06/09/25 09:01 06/09/25 08:18 06/09/25 04:04 Range/Units Urine Random Creatinine 19.30 L 30-135 mg/dL Urine Random Total Protein 32.4 H 0-11.9 mg/dL Urine Opiates Screen NEGATIVE NEGATIVE Urine Barbiturates Screen NEGATIVE NEGATIVE Urine Phencyclidine Screen NEGATIVE NEGATIVE Urine Amphetamines Screen NEGATIVE NEGATIVE Urine Benzodiazepines Screen NEGATIVE NEGATIVE Urine Cocaine Screen NEGATIVE NEGATIVE Urine Marijuana (THC) Screen NEGATIVE NEGATIVE Procalcitonin 0.09 0.05-0.5 ng/mL Blood Gas PEEP 6 cm H2O Erythrocyte Sedimentation Rate 20 0-30 MM/HR Troponin I High Sensitivity 178 *H 4-50 ng/L B-Type Natriuretic Peptide 3060 H 0-100 pg/mL Triglycerides Level 63 30-200 mg/dL Cholesterol Level 164 <200 mg/dL LDL Cholesterol 114 H 0-99 mg/dL HDL Cholesterol 29 L 35-85 mg/dL Thyroid Stimulating Hormone (TSH) 1.26 0.36-3.74 uIU/mL Test 06/08/25 20:49 06/08/25 20:42 06/08/25 19:25 06/08/25 17:51 Range/Units Urine Color YELLOW YELLOW Urine Appearance CLEAR CLEAR Urine pH 6.0 5.0-8.0 Urine Specific [place] 1.033 H 1.001-1.031 Urine Protein 100 H NEGATIVE mg/dL Urine Glucose (UA) NEGATIVE NEGATIVE mg/dL Urine Ketones NEGATIVE NEGATIVE mg/dL Urine Occult Blood NEGATIVE NEGATIVE Urine Nitrate NEGATIVE NEGATIVE Urine Bilirubin NEGATIVE NEGATIVE mg/dL Urine Urobilinogen 4.0 H 0.2-1.0 mg/dL Urine Leukocyte Esterase NEGATIVE NEGATIVE [place]/uL Urine RBC 0-1 0-1 /HPF Urine WBC 0-1 0-1 /HPF Urine Squamous Epithelial Cells Rare 0-2 /HPF Urine Bacteria Rare None Seen /HPF Urine Osmolality 679 50-1200 mOsm/kg Urine Random Sodium 18 L 40-220 mmol/l D-Dimer Quantitative (PE/DVT) 3746 *H 0-500 ng/mL Influenza Type A Antigen Negative For Type A NEGATIVE Influenza Type B Antigen Negative For Type B NEGATIVE Blood Gas Flow-by 4.00 0.00-15.00 L/min Test 06/08/25 17:04 06/08/25 17:03 Range/Units SARS-CoV-2 Antigen (Rapid) PRESUMPTIVE NEGATIVE NEGATIVE White Cell Morphology Comment See comments Red Blood Cell Morphology See comments Hemoglobin A1c 5.3 4.0-6.0 % Estimated Average Glucose (eAG) 105 70-126 mg/dL Mycoplasma pneumoniae IgM Antibody NEGATIVE NEGATIVE Current Medications Medications (Trade) Dose Ordered Sig/Rossy Route PRN Reason Start Time Stop Time Status Last Admin Dose Admin Acetaminophen (TYLenol 325MG TAB) 650 mg Q4H PRN PO MILD PAIN (1-3) 06/08/25 20:30 07/08/25 20:29 Acetaminophen (TYLenol 325MG TAB) 650 mg Q6H PRN PO TEMPERATURE GREATER THAN 101.5 06/08/25 20:30 07/08/25 20:29 Albuterol (DUOneb) 1 udvial [id number] IH 06/08/25 22:00 07/08/25 21:59 06/10/25 05:07 1 UDVIAL Budesonide (Pulmicort 0.5 Mg/2ml) 0.5 mg BIDRESP 06/09/25 18:00 07/09/25 17:59 06/10/25 05:24 0.5 MG Cefepime HCl (MAXipime 1 GM vial) 1 gm Q12H IVPB 06/10/25 14:00 06/24/25 13:59 Cefepime HCl (MAXipime 1 GM vial) 1 gm Q8H IVPB 06/10/25 09:30 06/10/25 09:41 DC Dexmedetomidine/ Sodium Chloride (PRECEdex 400MCG/ 100ML-NS) 400 mcg PROTOCOL IV 06/08/25 20:00 07/08/25 19:59 06/10/25 12:52 400 MCG Dorzolamide/ Timolol (Cosopt Eye Drops) 1 DROP BID OP 06/09/25 21:00 07/09/25 20:59 06/09/25 21:05 1 ML Doxycycline Hyclate 250 ml @ 125 mls/hr Q12H IV 06/08/25 23:00 06/18/25 22:59 06/10/25 11:36 125 MLS/HR Famotidine (Pepcid 20mg Vial) 20 mg DAILY IV 06/09/25 09:00 06/09/25 13:09 DC 06/09/25 08:39 20 MG Furosemide (LASix 40MG VIAL) 40 mg BID IVP 06/08/25 21:00 07/08/25 20:59 06/10/25 09:03 40 MG Heparin Sodium (Porcine) (HEParin 5,000 UNIT VIAL) *calculation based on ACTUAL B... AD PRN IV HEPARIN PROTOCOL 06/09/25 04:00 07/09/25 03:59 Heparin Sodium/ Dextrose 250 ml @ 0 mls/hr Q6H IV 06/09/25 04:00 07/09/25 03:59 06/10/25 13:24 8.72 MLS/HR Home Med (Home Medication) (Methimazole 5MG TAB) - 0.5 TAB... DAILY PO 06/10/25 09:00 07/10/25 08:59 Latanoprost (Xalatan) 1 DROP HS OD 06/09/25 21:00 07/09/25 20:59 Levofloxacin/ Dextrose 100 ml @ 100 mls/hr Q24H IV 06/09/25 20:00 06/08/25 22:40 DC Magnesium Sulfate 50 ml @ 0 mls/hr PROTOCOL PRN IV MAGNESIUM PROTOCOL 06/09/25 17:00 07/09/25 16:59 Methylprednisolone Sodium Succinate (Solu-medROL 40MG) 40 mg Q8H IVP 06/09/25 13:30 07/09/25 13:29 06/10/25 12:53 40 MG Metronidazole/ Sodium Chloride 100 ml @ 100 mls/hr Q8H6 IVPB 06/10/25 14:00 06/20/25 13:59 Midodrine (PROAMatine 5 MG TABLET) 5 mg TID PO 06/10/25 14:00 07/10/25 13:59 Nicotine (Nicoderm) 21 mg DAILY TD 06/08/25 23:00 07/08/25 22:59 06/10/25 09:07 21 MG Norepinephrine 250 ml @ 0 mls/hr PROTOCOL IV 06/09/25 01:00 07/09/25 00:59 06/09/25 01:11 10 MLS/HR Olanzapine (ZyPREXA 5 mg tab) 5 mg BID PO 06/10/25 21:00 07/10/25 20:59 Ondansetron HCl (zoFRAN 4MG INJ) 4 mg Q6H PRN IV NAUSEA/VOMITING 06/08/25 20:30 07/08/25 20:29 Oseltamivir Phosphate (Tamiflu) 75 mg BID PO 06/09/25 21:00 06/10/25 09:08 DC 06/10/25 09:03 75 MG Pantoprazole Sodium (PROTonix 40MG INJ) 40 mg DAILY IVP 06/10/25 09:00 07/10/25 08:59 06/10/25 09:03 40 MG Pharmacy Profile Note (Pharmacy Communication) 1 each ONCE MISC 06/09/25 03:00 06/09/25 03:24 DC Piperacillin Sod/ Tazobactam Sod (Zosyn 3.375gm+NS 50ml) 3.375 gm Q8H IV 06/08/25 23:00 06/10/25 09:08 DC 06/10/25 07:10 3.375 GM Potassium Chloride 100 ml @ 50 mls/hr AD PRN IV POTASSIUM PROTOCOL 06/09/25 17:00 07/09/25 16:59 06/09/25 21:18 50 MLS/HR Potassium Chloride 100 ml @ 100 mls/hr AD PRN IV POTASSIUM PROTOCOL 06/09/25 17:00 07/09/25 16:59 Potassium Chloride (K-Dur/Klor-Con 20meq) 20 meq AD PRN PO POTASSIUM PROTOCOL 06/09/25 17:00 07/09/25 16:59 Potassium Chloride (KCl 10% Elixir 20meq/15ml) 20 meq AD PRN PO POTASSIUM PROTOCOL 06/09/25 17:00 07/09/25 16:59 Sodium Bicarbonate 150 meq/Sodium Chloride 1,150 ml @ 100 mls/hr [id number] IVP 06/09/25 12:00 06/09/25 12:29 DC Vancomycin HCl 250 ml @ 125 mls/hr Q24H IV 06/11/25 10:00 06/25/25 09:59 Vancomycin HCl (Vancomycin Protocol) 1 each AD IV 06/10/25 09:30 06/24/25 09:29 Ziprasidone (Geodon) 10 mg Q6H PRN IM AGITATION/PSYCHOSIS 06/09/25 18:00 07/09/25 17:59 06/10/25 03:49 10 MG DIAGNOSTICS / RADIOLOGY: [ ] [place] [address] IMAGING REPORT Signed PATIENT: HUGO WYLIE MR#: [id number] : 1955 SEX: F AGE: 69 LOCATION: 2CH ORDER 1302 STATUS: ADM IN REPORT#: [id number] SERVICE 1257 REASON: high lft ORDERING PHYSICIAN: VY FOOTE MD PROCEDURE: ABDOMEN - US ABDOMINAL COMPLETE EXAM: US Abdomen complete CLINICAL HISTORY: Elevated liver function tests. TECHNIQUE: Real-time ultrasound of the abdomen (complete) with image documentation. COMPARISON: CT images from June 08, 2025. FINDINGS: LIVER: Enlarged in size measuring 16 cm. Portal vein demonstrates hepatopetal pattern of flow. No mass or biliary dilatation. The liver contours are smooth. GALLBLADDER: Focal edematous wall thickening of the gallbladder measuring 12 mm in wall thickness with minimal pericholecystic fluid. COMMON BILE DUCT: No dilation. Measures 1 mm PANCREAS: Unremarkable where visualized. The distal pancreas is obscured by overlying bowel gas. KIDNEYS: Right kidney measures 9 x 4.3 x 3.9 cm in craniocaudal, jami-posterior and transverse dimensions. Left kidney measures 9 x 4.3 x 3.9 cm in craniocaudal, jami-posterior and transverse dimensions. Normal renal contours. No renal mass or calculus. No hydronephrosis. SPLEEN: Measures 8.9 x 3.9 x 3.7 cm. Normal in size and echogenicity. No mass identified. AORTA: No aneurysm. Proximal, mid and distal segments of abdominal aorta measures 2.2, 1.6 and 1.7 cm respectively. IVC: Features of IVC plethora with no evidence of significant collapse during inspiration. The intrahepatic segment of the inferior vena cava measures 2.6 cm MISCELLANEOUS: Mild right sided pleural effusion. IMPRESSION: Hepatomegaly. Focal edematous wall thickening of the gallbladder with minimal pericholecystic fluid may be extra cholecystic in etiology and related to underlying CHF seen on the correlative CT examination. Recommend a hepatobiliary (HIDA) scan if there is persistent clinical concern for cholecystitis. Mild right sided pleural effusion. Inferior vena cava plethora. Suggested echo correlation. /[place] DICTATED BY: DARREL GEORGE Jr., MD DATE: 06/09/251927 ELECTRONICALLY SIGNED BY: DARREL GEORGE Jr., MD DATE: 06/09/251927 ASSESSMENT: Acute hypoxemic respiratory failure POA Sepsis secondary to community acquired pneumonia-POA Aortic insufficiency due to Multiple vegetations seen on the aortic valve leafelts. (2D echo 06/09/2025) Acute CHF exacerbation with possible pulmonary edema POA Elevated troponin likely due to type 2 demand ischemia POA Acute COPD exacerbation POA Nicotine Dependence POA Acute anemia POA Acute leukocytosis POA Moderate Hyponatremia and hypochloremia POA Hyperglycemia POA Lactic acidosis POA Hyperthyroidism POA Peripheral neuropathy POA History of emphysema POA History of atrial fibrillation not on anticoagulation PLAN: Acute hypoxemic respiratory failure POA On Presentation patient's respiratory rate 30, heart rate 108, saturating 96% with2 L nasal cannula Chest x-ray showed bilateral perihilar and bibasilar airspace disease Patient was started on BiPAP, DuoNeb q.4 Patient was started on IV Solu-Medrol 40 mg Q8 IV Patient is high risk for intubation as per critical care team Critical Care on board, we will follow the recommendations. Sepsis secondary to community acquired pneumonia-POA On presentation heart rate 108, respiratory rate 30, white count 19.7, lactic acid 3.1 Chest x-ray showed bilateral perihilar and bibasilar airspace disease CT chest showed multifocal pneumonia bilateral lungs, pulmonary vascular congestion, pulmonary edema Zosyn was stopped by Infectious Disease, patient was started on vancomycin(day 1) and cefepime (day 1) Continue doxycycline q.12h IV (day 3) Patient is on norepinephrine drip at 0.05 mcg/mL /kg We will trend lactic acid Moderate Hyponatremia and hypochloremia POA On presentation sodium 122, chloride 93 Serum osmolality low at 274, urine osmolality normal, BNP 3370 Hyponatremia most likely due to fluid overload Continue IV Lasix 40 mg b.i.d. Sodium today 132 Nephrology on board, we will follow the recommendations. Aortic insufficiency due to Multiple vegetations seen on the aortic valve leafelts. (2D echo 06/09/2025) 2D echocardiogram showed LVEF 50-55%, normal left ventricular diastolic function, normal right ventricular systolic function Multiple vegetations seen on aortic valve leaflets, difficulty to assess severity of aortic insufficiency, moderate mitral valve regurgitation Zosyn was stopped by Infectious Disease, patient was started on vancomycin(day 1) and cefepime (day 1) Continue doxycycline q.12h IV (day 3) Pending blood cultures We will Request consultation from Infectious Disease GI Prophylaxis with famotidine 20 mg IV daily DVT prophylaxis from SCDs ATTESTATION BY PHYSICIAN I have seen and examined the patient. I reviewed the documentation, medical decision making, and treatment plan as noted by the resident physician above. I agree with the findings and plan of care. MIKAYLA RAINES MD, ADIL SHAH QUADRI MD Jun 10, 2025 13:38
[2025-06-10] MEDS: PHYTONADIONE 10 MG/1 ML AMP SQ SCH (15:11)
--- NOTE | 2025-06-10 15:13 | NUR ---
RAD NUCLEAR MEDICINE PATIENT BECAME COMBATIVE AND REFUSED HIDA SCAN NURSE MELINDA PRESENT @[id number]. HIDA SCAN ON HOLD.
--- NOTE | 2025-06-10 17:36 | PN ---
FOLLOWUP PROGRESS NOTE SUBJECTIVE: A 69-year-old female with a history of COPD. The patient initially presented to the hospital with increasing shortness of breath, orthopnea. The patient had been on BiPAP. She has significant hypotension requiring the vasopressors and she has been seen as a followup visit for all the above. The patient with significant hyponatremia. The patient is being seen as a followup visit for all of the above. REVIEW OF SYSTEMS: GENERAL: She is feeling weak and tired. HEENT: No change in vision. No change in hearing. No nasal discharge. No sore throat. CARDIOVASCULAR: There is no current chest pain or palpitations. PULMONARY: As described above. GASTROINTESTINAL: Appetite is poor. MUSCULOSKELETAL: Complaints of weakness. PHYSICAL EXAMINATION: VITAL SIGNS: Blood pressure 120/52, pulse in the 80s. GENERAL: She is a chronically ill female, elderly, lying in bed on the medical floor. HEENT: Head is atraumatic. Pupils are equal, round, and reactive to light. Oropharynx is without exudate. Nares clear. NECK: There is no JVP. There is no thyromegaly. CARDIOVASCULAR: Regular. There is no S3 or S4 gallop. LUNGS: Coarse with equal thoracic movement. ABDOMEN: Soft, nondistended, and nontender. EXTREMITIES: She does have some edema. NEUROLOGICAL: She is confused. LABORATORY DATA: Sodium 132, potassium 3.8, BUN 42, creatinine 1.4. LFTs are noted. Hemoglobin 8.5, hematocrit 26, white count 17,000. IMPRESSION: * Acute on chronic renal dysfunction. * Hyponatremia. * Hypotension. * Elevated liver function tests. PLAN: The patient will be started on midodrine 5 mg t.i.d. while we wean off the pressors. The patient remains on Precedex for her confusion. We will continue to follow the patient closely. She will continue with the fluid restriction for the hyponatremia. She remains on heparin and is being evaluated by Cardiology. All labs will be repeated in the morning. The patient's family at the bedside. Multiple questions were all answered. TID: [id number] RECEIPT: [id number]
--- NOTE | 2025-06-10 19:55 | PN ---
[facility] PROGRESS NOTE Date Patient Seen: Jun 10, 2025 Time of Visit: 19:48 Supervising Physician: VY FOOTE MD Primary Care Physician: [Dr. Yoel Pierson] Outpatient Specialists: [ ] Inpatient Consults: [[facility]-ICU ] PROBLEM LIST: Acute hypoxic respiratory failure on admission Sepsis 2/2 community acquired pneumonia-POA Aortic valve vegetations Bacterial endocarditis with negative blood cultures Hepatic transaminitis NSTEMI-likely type II 2/2 demand ischemia from hypoxia vs. true cardiac etiology-POA- negative for chest pain or ST/T wave abnormality. HEART score 6 points=12-16.6% risk for MACE Possible new-onset CHF with exacerbation-POA Hyperlactatemia-POA Acute delirium Acute COPD exacerbation Emphysema secondary to tobacco use disorder Pulmonary edema-POA Bilateral pleural effusions-POA Moderate hyponatremia, suspected acute-POA Sleep deprivation 2/2 current illness-POA History of paroxysmal AFib Chronic nicotine disorder: [id number] HX Prior CVA Hyperthyroid disorder/Graves disease with right thyroid nodule INTERVAL HISTORY: Off BiPAP, now on high flow oxygen Afebrile, no chills, no nausea Patient with acute delirium Still hypoxic, with respiratory distress Currently 60% FiO21 Creatinine is 1.4 and remains on diuretics Remains on Norepinephrine 1.5 2D echocardiogram shows multiple vegetations on the aortic valve REVIEW OF SYSTEMS: Patient confused, agitated. PHYSICAL EXAM: GENERAL: alert, awake oriented x 3 HEENT: EOMI, Sclera non icteric, dry mucosa NECK: Supple, no JVD, trachea midline LUNGS: Bilateral crackles, no wheezing HEART: Regular rate and rhythm. Normal S1 and S2, without murmurs, tachycardia ABD: Abdomen soft, nontender. Bowel sounds present EXT: No clubbing cyanosis or edema NEURO: Alert and oriented to person, follows commands, extremely agitated- Precedex started Vital Signs (last 8hr) Date Time Temp Pulse Resp B/P (MAP) Pulse Ox O2 Delivery O2 Flow Rate FiO2 06/10/25 18:45 80 16 106/37 (60) 92 44 06/10/25 18:30 81 23 114/44 (67) 96 44 06/10/25 18:20 70 18 N/Cannula Oximizer Hi LPM 6.0 44 06/10/25 18:20 70 22 06/10/25 18:15 79 11 104/42 (62) 95 44 06/10/25 18:00 80 22 105/41 (62) 93 44 06/10/25 17:30 81 23 98/47 (64) 95 44 06/10/25 17:15 88 23 107/38 (61) 95 44 06/10/25 17:00 78 20 114/42 (66) 92 44 06/10/25 16:45 85 25 116/49 (71) 92 44 06/10/25 16:30 89 21 126/44 (71) 94 44 06/10/25 16:15 81 22 119/62 (81) 92 44 06/10/25 16:00 98.2 6.0 06/10/25 16:00 88 21 127/57 (80) 91 44 06/10/25 15:45 92 N/C Oxymizer Hi LPM* 6 44 06/10/25 15:45 84 39 113/48 (69) 92 44 06/10/25 15:30 82 25 108/51 (70) 93 44 06/10/25 15:15 87 24 117/64 (81) 92 44 06/10/25 15:00 86 10 114/50 (71) 92 44 06/10/25 14:45 83 59 111/41 (64) 92 44 06/10/25 14:30 83 24 109/50 (69) 99 44 06/10/25 14:27 84 24 N/Cannula Oximizer Hi LPM 7.0 06/10/25 14:27 88 24 06/10/25 14:15 81 30 113/45 (67) 94 44 06/10/25 14:00 87 23 125/44 (71) 94 44 06/10/25 13:45 86 21 117/48 (71) 94 44 06/10/25 13:30 82 24 106/41 (62) 94 44 06/10/25 13:15 82 26 123/45 (71) 96 44 06/10/25 13:00 84 15 109/49 (69) 96 44 06/10/25 12:45 95 25 119/65 (83) 96 44 06/10/25 12:30 97 N/C Oxymizer Hi LPM* 6 44 06/10/25 12:30 84 28 119/42 (67) 97 44 06/10/25 12:15 81 27 107/42 (63) 95 44 06/10/25 12:00 81 31 119/52 (74) 94 44 LABS: Hematology Labs: Test 06/10/25 05:39 06/09/25 04:04 Range/Units White Blood Count 17.1 H 4.8-10.8 K/uL Red Blood Count 3.43 L 4.00-5.50 MIL/uL Hemoglobin 8.5 L 12.0-16.0 g/dL Hematocrit 26.4 L 36-48 % Mean Corpuscular Volume 77.0 L 79-99 fL Mean Corpuscular Hemoglobin 24.8 L 27.0-33.0 pg Mean Corpuscular Hemoglobin Concent 32.2 32.0-36.0 g/dL Red Cell Distribution Width 20.0 H 11.0-15.5 % Platelet Count 213 # 130-400 K/uL Mean Platelet Volume 9.9 7.5-10.5 fL Immature Granulocyte % (Auto) 0.8 0-1 % Neutrophils (%) (Auto) 88.0 H 40.0-77.0 % Lymphocytes (%) (Auto) 6.9 L 21.0-51.0 % Monocytes (%) (Auto) 4.2 3.0-13.0 % Eosinophils (%) (Auto) 0.0 0.0-8.0 % Basophils (%) (Auto) 0.1 0.0-5.0 % Neutrophils # (Auto) 15.0 H 1.8-7.7 K/uL Lymphocytes # (Auto) 1.2 1.0-4.8 K/uL Monocytes # (Auto) 0.7 0.1-1.0 K/uL Eosinophils # (Auto) 0.00 0.00-0.70 K/uL Basophils # (Auto) 0.01 0.00-0.20 K/uL Absolute Immature Granulocyte (auto 0.13 0-1 K/uL Nucleated Red Blood Cells 0.5 H 0.0-0.19 % Erythrocyte Sedimentation Rate 20 0-30 MM/HR Chemistry Labs: Test 06/10/25 17:50 06/10/25 12:39 06/10/25 05:39 06/09/25 09:01 Range/Units Lactic Acid Level 3.4 H 0.8-2.5 mmol/L Ammonia 24 11-32 umol/L Sodium Level 132 L 136-145 mmol/L Potassium Level 3.8 3.5-5.1 mmol/L Chloride Level 100 L 101-111 mmol/L Carbon Dioxide Level 18 L 21-32 mmol/L Blood Urea Nitrogen 42 H 7-18 mg/dL Creatinine 1.4 H 0.5-1.0 mg/dL Glomerular Filtration Rate Calc 41 >90 mL/min Random Glucose 157 H 70-105 mg/dL Serum Osmolality 291 278-305 mOsm/kg Uric Acid 10.4 H 2.6-7.2 mg/dL Total Calcium 7.4 L 8.5-10.1 mg/dL Phosphorus Level 4.8 2.5-4.9 mg/dL Magnesium Level 1.80 1.80-2.40 mg/dL Total Bilirubin 1.4 H 0.2-1.0 mg/dL Aspartate Amino Transf (AST/SGOT) 3143 *H 10-37 U/L Alanine Aminotransferase (ALT/SGPT) 1515 *H 12-78 U/L Alkaline Phosphatase 93 50-136 U/L Total Protein 5.5 L 6.0-8.3 g/dL Albumin 2.3 L 3.5-5.0 g/dL Procalcitonin 0.09 0.05-0.5 ng/mL Test 06/09/25 04:04 Range/Units Troponin I High Sensitivity 178 *H 4-50 ng/L B-Type Natriuretic Peptide 3060 H 0-100 pg/mL Triglycerides Level 63 30-200 mg/dL Cholesterol Level 164 <200 mg/dL LDL Cholesterol 114 H 0-99 mg/dL HDL Cholesterol 29 L 35-85 mg/dL Thyroid Stimulating Hormone (TSH) 1.26 0.36-3.74 uIU/mL Coagulation Labs: Test 06/10/25 17:50 06/10/25 12:39 06/10/25 05:39 06/08/25 20:42 Range/Units Activated Partial Thromboplast Time 74.0 H 26.3-35.5 SEC Fibrinogen 265 180-350 mg/dL Prothrombin Time 20.9 H 9.6-11.6 SEC Prothromb Time International Ratio 2.12 H 0.85-1.15 D-Dimer Quantitative (PE/DVT) 3746 *H 0-500 ng/mL DIAGNOSTICS / RADIOLOGY RESULTS: 2D echocardiogram with multiple vegetations to the aortic valve PLAN Decrease Lasix dose due to ELMA Get ammonia level Get HIDA scan Start vitamin K Get chest x-ray Get CT scan of the head continue Vancomycin and Cefepime Pending VICK Place NGT to prevent aspiration and to resume nutritional support Start Zyprexa BID Add Flagyl for gallbladder coverage (anaerobes) Consider surgical consultation depending on HIDA scan results, may need cholecystostomy drain NEURO: Minimize central acting medications as possible. Fall Precautions. Well lighted room through the day and minimize interruptions through the night to prevent acute delirium. PULMONARY: Supplemental 02 as needed Titrate Fio2 to keep Spo2 > or = 90% DuoNebs and CPT as needed IS hourly while awake for pulmonary hygiene Out of bed to chair as tolerated VAP Bundle Vent/BIPAP Settings: [ ] Driving pressure: [ ] P Plat: [ ] Static C: [ ] Static R: [ ] P/F Ratio: [ ] CARDIOVASCULAR: Follow hemodynamics. Titrate vasopressor to keep MAP >65 or systolic blood pressure >95mmHg DRIPS: [Precedex] LINES: [ ] GI & NUTRITION: Continue nutritional support Aspirations precautions Prokinetic agents and laxatives as needed KIDNEYS & ELECTROLYTES: Strict monitoring of intake and output Daily weights Avoid nephrotoxic agents Monitor electrolytes and replace as needed Goal urine output of 30mL/hr or 0.5mL/kg/hr Urine output: [ ] Fluid Balance: [ ] ENDOCRINE: Maintain blood glucose between 100-180 at all times. Insulin sliding scale for blood glucose management INFECTIOUS DISEASE: Trend temperature. Dubois-culture if febrile. Micro: [ ] Antibiotics: [Vancomycin and Cefepime ] HEMATOLOGY & COAGULATION: Monitor H&H. Keep Hgb > 7 Transfuse 1 unit of PRBC for Hgb < 7 Transfuse 1 pack of platelets of platelets < 20, 000 Watch for any signs and symptoms of bleeding SKIN: Pressure ulcer prevention per facility protocol Rehab: PT/OT Prophylaxis: GI: [Pepcid ] DVT: [Heparin] Code Status: Full Resuscitation Disposition: [ICU] Other: Total patient care time: 35 minutes I personally scribed for VY FOOTE MD ([email or web address]) on 06/10/25 at 19:55. Electronically submitted by Mark Singh ([email or web address]). VY FOOTE MD Jun 10, 2025 19:55
--- NOTE | 2025-06-10 21:56 | HMCIMG ---
STUDY: X-RAY OF THE CHEST, 1 VIEW HISTORY: Congestive heart failure. TECHNIQUE: A single frontal view of the chest is submitted for interpretation. COMPARISON: Chest radiograph from 06/09/2025 at 12:15. FINDINGS: Pulmonary alejandro: Redemonstrated bilateral interstitial and patchy airspace opacities, slightly increased compared with the prior study, compatible with pulmonary edema; a multifocal infectious process is a less likely alternative given the distribution and clinical history. No new focal consolidation. Cardiac silhouette: Cardiac silhouette is mildly enlarged, increased from the prior examination. Mediastinum and anu: Mediastinal contours and hilar structures are within normal limits without convincing mediastinal widening or focal hilar mass. Osseous structures: Visualized ribs, clavicles, and thoracic spine show no acute osseous abnormality. Miscellaneous: New small bilateral pleural effusions. No pneumothorax. Interval placement of a right-sided peripherally inserted central catheter (PICC) with the tip projecting over the superior vena cava. IMPRESSION: * Mild progression of bilateral interstitial and patchy airspace opacities with new small bilateral pleural effusions and new mild cardiomegaly, most consistent with pulmonary edema in the setting of congestive heart failure, compared with the chest radiograph from 06/09/2025. * Interval placement of a right-sided PICC line with the tip in the region of the superior vena cava, in appropriate position. /[employer]
--- NOTE | 2025-06-10 22:05 | NUR ---
[facility] care team and spoke to Keisha Nassar DIRECTOR OF EMPLOYER SERVICES. Informed him that patient is agitated RASS +3. Patient is attempting to remove medical equipment such as her bipap with her mittens. Patient is screaming and her heart rate went as high as 150's. The one to one sitter and I attempted to reorient her and calm the patient with java j2ee lead success. Patient is currently maxed out on precedex and received Geodon prn for agitation. Provider ordered a one time dose of ativan 1 mg ivp, and a stat abg.
[2025-06-10 22:27] LABS: ABG BASE EXCESS -6.3 mmol/L (-2.0-3.0); ABG HCO3 16.5 mmol/L (21.0-28.0); ABG OXYGEN SATURATION 95.4 % (94.0-98.0); ABG PCO2 27 mmHg (32-45); ABG PH 7.411 (7.350-7.450); PO2, ARTERIAL BG 74.7 mmHg (83.0-108.0); TEMPERATURE, CELSIUS BG 37.0 CELSIUS (35.5-37.0); VENT MODE, BG BIPAP15-10 (ROOM AIR)
--- NOTE | 2025-06-10 22:32 | NUR ---
Placed pt on bipap. 15,14,40%. pt sat 95%.allevyn in place.
--- NOTE | 2025-06-10 22:59 | NUR ---
Spoke to Keisha Nassar SHREDDING MACHINE TENDER informed him of patients abg results. Informed him that ativan 1mg was given and patients HR is still in 140s-150s with a RASS of +3. As per provider HR will improve when her agitation improves. No other orders received. Will continue to monitor patient.
[2025-06-11] VITALS (111 sets, daily range): BP systolic 85–128; BP diastolic 25–74; PULSE 71–129; RESP 5–25; TEMP 97.6–98.2; O2SAT 96–100
[2025-06-11 04:19] LABS: NUCLEATED RED BLOOD CELLS 0.3 % (0.0-0.19); PLATELET COUNT (AUTO) 234.0 K/uL (130-400); RED BLOOD CELL COUNT(AUTO) 3.7 MIL/uL (4.00-5.50); RED CELL DISTRIBUTION WIDTH 20.2 % (11.0-15.5); WHITE BLOOD COUNT (AUTO) 22.3 K/uL (4.8-10.8)
[2025-06-11 05:01] LABS: ABG BASE EXCESS -5.6 mmol/L (-2.0-3.0); ABG HCO3 19.2 mmol/L (21.0-28.0); ABG OXYGEN SATURATION 97.3 % (94.0-98.0); ABG PCO2 36 mmHg (32-45); ABG PH 7.349 (7.350-7.450); PO2, ARTERIAL BG 99.6 mmHg (83.0-108.0); TEMPERATURE, CELSIUS BG 37.0 CELSIUS (35.5-37.0)
[2025-06-11 05:41] LABS: CREATININE 1.5 mg/dL (0.5-1.0); GLOMERULAR FILTR. RATE CALC 38.0 mL/min (>90); GLUCOSE,RANDOM 153.0 mg/dL (70-105); PHOSPHORUS 4.7 mg/dL (2.5-4.9); SODIUM SERUM 135.0 mmol/L (136-145); TOTAL PROTEIN, SERUM 5.1 g/dL (6.0-8.3); UREA NITROGEN, BLOOD 52.0 mg/dL (7-18)
[2025-06-11 05:45] LABS: ASPARTATE AMINOTRANSFERASE 946.0 U/L (10-37)
[2025-06-11 07:00] LABS: INR 1.82 (0.85-1.15)
[2025-06-11] MEDS: VANCOMYCIN 1G/250ML KIT 250 ML IV SCH (09:31)
[2025-06-11] MEDS: PHYTONADIONE 10 MG/1 ML AMP SQ SCH (09:32)
--- NOTE | 2025-06-11 10:01 | PN ---
[facility] PROGRESS NOTE Date of Service: Jun 11, 2025 Time of Service: 10:01 SUBJECTIVE: HISTORY OF PRESENT ILLNESS: This is a 69-year-old female past medical history of emphysema peripheral neuropathy, atrial fibrillation and hyperthyroidism who was brought by EMS to the ED for complaints of shortness of breaths,dry cough and generalized body weakness which started for the past 3 weeks and getting worse this past few days.Patient reports she lives alone and a current heavy cigarette smoker 1 pack/day.As per patient she has been going to her PCP every week x 3 weeks and was started on steroids prednisone and inhaler and patient also reports was admitted for having atrial fibrillation last 05/09/25 and [place] [facility] [place] Patient reports has not seen a mail manager.Patient complaints of chest tightness with dry cough for the past 3 weeks but has not improved and its getting worse so she decided to come to the ED .On further evaluation ,patient was asked by the undersigned if it come to appoint where she needs to be orally intubated and patient states she is okay and in the meantime she wants to try t he Bipap. Seen and examined patient in the ER awake,alert and appears very short of breath,she has a friend at bedside and helping her from time to time with medical history as patient appears anxious as well.Patient denies chest pain,palpitation,nausea,vomiting and fever. Latest vital signs temperature 98.1, heart rate 110, respiration 35, blood pressure 140/56 saturation 96 on BiPAP 40% FiO2. Labs: WBC 19 with negative left shift of neutrophils 84, hemoglobin 9, hematocrit 30, platelet count 386. Sodium 122, chloride 93, CO2 18, BUN 23, glucose 140, lactic acid 3.1 troponin 112 BNP 3370. D-dimer 3746, PT 15, INR 1.4 PTT 28. Influenza type a and B negative SARS COVID negative. Chest x-ray result revealed bilateral perihilar and bibasilar airspace disease possibly representing pulmonary edema with small bilateral pleural effusion. [id number] cardiomegaly and pulmonary vascular congestion. While in the ER patient received Solu-Medrol 125 mg IV, albuterol two unit dose via inhalation, levofloxacin 750 mg IV, Protonix 40 mg, NS 500 mL bolus, Lasix 80 mg IV and morphine 2 mg IV. Patient was started on Precedex per ICU rec ommendation. Admit patient for further medical management. 06/09/2025: The patient was seen and evaluated bedside in ICU, no family at bedside. Patient is agitated, anxious on max doses of Precedex, saturating 100% with FiO2 60 on BiPAP. Patient is currently on norepinephrine drip 0.05 mcg/mL/kg and heparin drip q.[address] chest showed no pulmonary thromboembolism, small to medium pericardial effusion, cardiomegaly, pulmonary vascular congestion, pulmonary edema and multifocal pneumonia in bilateral lung alejandro. Continue Zosyn, doxycycline, IV Lasix, Solu-Medrol IV. Morning lab showed white count 17.4, sodium 124, bicarb 14, lactic acid 3.7, troponin 178, BNP 3060, AST 1479, ALT 561. Patient has bicarb deficit of 336, we ordered sodium bicarbonate 100 mEq single dose and we will repeat bicarb this evening. Nephrology, Cardiology, critical Care on board we will continue to follow the recommendations. 06/10/2025: The patient was seen and evaluated bedside in ICU, no family at bedside. Patient is currently on Precedex, norepinephrine drip. Abdominal ultrasound showed focal edematous wall thickening of gallbladder with minimal pericholecystic fluid, recommended HIDA scan if there is persistent clinical concern for cholecystitis. Lab showed white count trending down to 17.1, lactic acid trending down to 3, AST 3143, ALT 1515. Zosyn has been discontinued by Infectious Disease, patient was started on cefepime and vancomycin. Cardiology recommended transesophageal echocardiography once the patient become more stable. 06/11/2025: The patient was seen and evaluated bedside in ICU, no family at bedside. Patient is currently on one-to-one sitter. Patient continues to be on Precedex, norepinephrine, heparin drip. Morning lab shows white count 22.3, sodium 135, potassium 3.1, BUN 52, creatinine 1.5, fibrinogen 265, lactic acid trended down to 2, AST trended down to 946, ALT trended down to 1026. Blood culture shows no growth so far. Continue IV antibiotics as recommended by Infectious Disease. REVIEW OF SYSTEMS CONSTITUTIONAL: Denies fevers, chills, or night sweats. No unintentional weight loss reported. NEUROLOGICAL: Denies headache, amaurosis fugax, motor weakness, sensory deficit, vertigo/spinning sensation, gait abnormalities, or tremors. ENT: No hearing loss, otalgia, otorrhea, rhinitis, rhinorrhea, hoarseness, or sore throat. CARDIOVASCULAR: Denies any exertional angina, dyspnea on exertion, orthopnea, paroxysmal nocturnal dyspnea, palpitations, life-threatening arrhythmias, claudication. PULMONARY: Complaints of shortness of breaths, dry cough and chest tightness x3 weeks Denies phlegm/sputum, hemoptysis, pleuritic chest pain. SLEEP: Denies morning headaches, daytime somnolence or napping. Denies diff iculty falling asleep, staying asleep, waking from sleep. Denies knowledge of snoring. GASTROINTESTINAL: Denies any type of dysphagia to either liquids or solids. Denies nausea, vomiting, pyrosis, early satiety, abdominal pain, diarrhea, constipation, or changes in stool consistency or caliber. Denies coffee-ground emesis, hematemesis, hematochezia, or melanotic stools. GENITOURINARY: Denies frequency, urgency, nocturia, hematuria or incontinence (Storage/Irritative symptoms.) Low urinary stream, straining to void, urinary intermittency or hesitancy, splitting of the voiding stream, terminal dribbling. ENDOCRINOLOGIC: Denies polyuria, polydipsia, polyphagia or heat/cold in tolerances. HEMATOLOGIC: Denies thrombophilia/previous clots, or coagulopathy/bleeding disorders. ONCOLOGIC: Denies personal history of malignancy. DERMATOLOGIC: Denies rashes or pruritus. PSYCHIATRIC: Denies any suicidal or homicidal ideation. Denies hallucinations. PHYSICAL EXAM GENERAL APPEARANCE: The patient is awake, alert, and oriented,moderate respiratory distress NEUROLOGICAL: Cranial nerves II-XII grossly intact. Motor is 5/5 in bilateral upper and lower extremities proximal to distal. No sensory deficits. HEENT: Face is symmetric. Pupils are equal and reactive. Extraocular movements are intact. NECK: Supple. No JVD. No thyromegaly. No submental, submandibular, pre- /postauricular, occipital or supraclavicular lymphadenopathy. CHEST: Normal chest expansion. No Telemetry. LUNGS: tachypneic CARDIOVASCULAR: Tachycardic Regular. S1 and S2 normal. No appreciable rubs, murmurs or gallops. ABDOMEN: Soft, nontender, and nondistended. There is no rebound, voluntary guarding, or rigidity. : Deferred. Gonzalez. EXTREMITIES: Non-edematous and not cyanotic. No clubbing. Good capillary refill. SKIN: No skin breakdown. Vital Signs (last 8hr) Date Time Temp Pulse Resp B/P (MAP) Pulse Ox O2 Delivery O2 Flow Rate FiO2 06/11/25 06:52 80 19 108/42 (64) 100 06/11/25 06:37 81 18 105/25 (51) 100 06/11/25 06:33 82 18 97/44 (61) 100 06/11/25 06:22 84 20 93/38 (56) 100 06/11/25 06:21 85 18 89/42 (58) 100 06/11/25 06:20 78 18 06/11/25 06:17 78 18 40 06/11/25 05:22 81 20 99/49 (66) 100 06/11/25 05:07 78 21 104/37 (59) 100 06/11/25 04:52 78 20 106/37 (60) 100 06/11/25 04:37 78 20 100/48 (65) 100 06/11/25 04:22 79 20 110/40 (63) 100 06/11/25 04:07 85 20 98/42 (60) 100 06/11/25 03:56 97.5 06/11/25 03:52 77 12 101/40 (60) 100 06/11/25 03:37 79 20 102/41 (61) 100 06/11/25 03:22 81 20 101/52 (68) 100 06/11/25 03:07 82 20 100/43 (62) 100 06/11/25 02:55 87 20 06/11/25 02:55 96 Bi-PAP+ 40 06/11/25 02:52 84 19 100/51 (67) 100 06/11/25 02:37 82 20 101/40 (60) 100 06/11/25 02:22 78 21 97/49 (65) 100 06/11/25 02:07 78 20 100/45 (63) 100 LABS: Laboratory: Test 06/11/25 06:10 06/11/25 05:00 06/11/25 04:07 06/10/25 12:39 Range/Units Prothrombin Time 18.2 H 9.6-11.6 SEC Prothromb Time International Ratio 1.82 H 0.85-1.15 Activated Partial Thromboplast Time 67.8 H 26.3-35.5 SEC D-Dimer Quantitative (PE/DVT) 8317 *H 0-500 ng/mL Blood Gas Specimen Type Arterial Arterial Blood pH 7.349 L 7.350-7.450 Arterial Blood Partial Pressure CO2 36 32-45 mmHg Arterial Blood Partial Pressure O2 99.6 83.0-108.0 mmHg Arterial Blood HCO3 19.2 L 21.0-28.0 mmol/L Arterial Blood Oxygen Saturation 97.3 94.0-98.0 % Arterial Blood Base Excess -5.6 L -2.0-3.0 mmol/L Blood Gas Temperature 37.0 35.5-37.0 CELSIUS Blood Gas Respiration Rate 14.0 min. Blood Gas Vent Mode BIPAP 15-10 ROOM AIR FiO2 40.0 % Blood Gas Specimen Comment LB SELIN White Blood Count 22.3 #H 4.8-10.8 K/uL Red Blood Count 3.70 L 4.00-5.50 MIL/uL Hemoglobin 9.2 L 12.0-16.0 g/dL Hematocrit 27.8 L 36-48 % Mean Corpuscular Volume 75.1 L 79-99 fL Mean Corpuscular Hemoglobin 24.9 L 27.0-33.0 pg Mean Corpuscular Hemoglobin Concent 33.1 32.0-36.0 g/dL Red Cell Distribution Width 20.2 H 11.0-15.5 % Platelet Count 234 130-400 K/uL Mean Platelet Volume 10.1 7.5-10.5 fL Nucleated Red Blood Cells 0.3 H 0.0-0.19 % Sodium Level 135 L 136-145 mmol/L Potassium Level 3.1 L 3.5-5.1 mmol/L Chloride Level 101 101-111 mmol/L Carbon Dioxide Level 20 L 21-32 mmol/L Blood Urea Nitrogen 52 H 7-18 mg/dL Creatinine 1.5 H 0.5-1.0 mg/dL Glomerular Filtration Rate Calc 38 >90 mL/min Random Glucose 153 H 70-105 mg/dL Lactic Acid Level 2.0 0.8-2.5 mmol/L Total Calcium 7.2 L 8.5-10.1 mg/dL Phosphorus Level 4.7 2.5-4.9 mg/dL Magnesium Level 1.80 1.80-2.40 mg/dL Total Bilirubin 1.3 H 0.2-1.0 mg/dL Aspartate Amino Transf (AST/SGOT) 946 *H 10-37 U/L Alanine Aminotransferase (ALT/SGPT) 1026 #*H 12-78 U/L Alkaline Phosphatase 85 50-136 U/L Total Protein 5.1 L 6.0-8.3 g/dL Albumin 1.9 L 3.5-5.0 g/dL Fibrinogen 265 180-350 mg/dL Ammonia 24 11-32 umol/L Test 06/10/25 05:39 06/09/25 20:19 06/09/25 13:20 Range/Units Immature Granulocyte % (Auto) 0.8 0-1 % Neutrophils (%) (Auto) 88.0 H 40.0-77.0 % Lymphocytes (%) (Auto) 6.9 L 21.0-51.0 % Monocytes (%) (Auto) 4.2 3.0-13.0 % Eosinophils (%) (Auto) 0.0 0.0-8.0 % Basophils (%) (Auto) 0.1 0.0-5.0 % Neutrophils # (Auto) 15.0 H 1.8-7.7 K/uL Lymphocytes # (Auto) 1.2 1.0-4.8 K/uL Monocytes # (Auto) 0.7 0.1-1.0 K/uL Eosinophils # (Auto) 0.00 0.00-0.70 K/uL Basophils # (Auto) 0.01 0.00-0.20 K/uL Absolute Immature Granulocyte (auto 0.13 0-1 K/uL Serum Osmolality 291 278-305 mOsm/kg Uric Acid 10.4 H 2.6-7.2 mg/dL Hemoglobin (Blood Gas) 9.7 L 12.0-16.0 g/dL Sodium (Blood Gas) 132 L 136-145 MMOL/L Bedside Potassium (Blood Gas) 3.5 3.4-4.5 MMOL/L Bedside Chloride (Blood Gas) 105 98-107 MMOL/L Bedside Glucose (Blood Gas) 168 H 65-95 MG/DL Bedside Ionized Calcium (Blood Gas) 1.06 L 1.15-1.33 MMOL/L Bedside Lactic Acid (Blood Gas) 2.84 H 0.36-0.75 MMOL/L Urine Random Creatinine 19.30 L 30-135 mg/dL Urine Random Total Protein 32.4 H 0-11.9 mg/dL Urine Opiates Screen NEGATIVE NEGATIVE Urine Barbiturates Screen NEGATIVE NEGATIVE Urine Phencyclidine Screen NEGATIVE NEGATIVE Urine Amphetamines Screen NEGATIVE NEGATIVE Urine Benzodiazepines Screen NEGATIVE NEGATIVE Urine Cocaine Screen NEGATIVE NEGATIVE Urine Marijuana (THC) Screen NEGATIVE NEGATIVE Current Medications Medications (Trade) Dose Ordered Sig/Rossy Route PRN Reason Start Time Stop Time Status Last Admin Dose Admin Acetaminophen (TYLenol 325MG TAB) 650 mg Q4H PRN PO MILD PAIN (1-3) 06/08/25 20:30 07/08/25 20:29 Acetaminophen (TYLenol 325MG TAB) 650 mg Q6H PRN PO TEMPERATURE GREATER THAN 101.5 06/08/25 20:30 07/08/25 20:29 Albuterol (DUOneb) 1 udvial [id number] IH 06/08/25 22:00 07/08/25 21:59 06/11/25 06:20 1 UDVIAL Budesonide (Pulmicort 0.5 Mg/2ml) 0.5 mg BIDRESP IH 06/09/25 18:00 07/09/25 17:59 06/11/25 06:20 0.5 MG Cefepime HCl (MAXipime 1 GM vial) 1 gm Q12H IVPB 06/10/25 14:00 06/10/25 14:35 DC 06/10/25 14:23 1 GM Cefepime HCl (MAXipime 1 GM vial) 1 gm Q12H9 IVPB 06/10/25 21:00 06/24/25 13:59 06/11/25 09:31 1 GM Cefepime HCl (MAXipime 1 GM vial) 1 gm Q8H IVPB 06/10/25 09:30 06/10/25 09:41 DC Dexmedetomidine/ Sodium Chloride (PRECEdex 400MCG/ 100ML-NS) 400 mcg PROTOCOL IV 06/08/25 20:00 07/08/25 19:59 06/11/25 09:27 400 MCG Dorzolamide/ Timolol (Cosopt Eye Drops) 1 DROP BID OP 06/09/25 21:00 07/09/25 20:59 06/11/25 09:33 1 ML Doxycycline Hyclate 250 ml @ 125 mls/hr Q12H IV 06/08/25 23:00 06/18/25 22:59 06/10/25 23:45 125 MLS/HR Famotidine (Pepcid 20mg Vial) 20 mg DAILY IV 06/09/25 09:00 06/09/25 13:09 DC 06/09/25 08:39 20 MG Furosemide (LASix 40MG VIAL) 40 mg BID IVP 06/08/25 21:00 07/08/25 20:59 06/11/25 09:32 40 MG Heparin Sodium (Porcine) (HEParin 5,000 UNIT VIAL) *calculation based on ACTUAL B... AD PRN IV HEPARIN PROTOCOL 06/09/25 04:00 07/09/25 03:59 Heparin Sodium/ Dextrose 250 ml @ 0 mls/hr Q6H IV 06/09/25 04:00 07/09/25 03:59 06/11/25 02:27 0 MLS/HR Home Med (Home Medication) (Methimazole 5MG TAB) - 0.5 TAB... DAILY PO 06/10/25 09:00 07/10/25 08:59 Latanoprost (Xalatan) 1 DROP HS OD 06/09/25 21:00 07/09/25 20:59 06/10/25 20:08 1 DROP Levofloxacin/ Dextrose 100 ml @ 100 mls/hr Q24H IV 06/09/25 20:00 06/08/25 22:40 DC Magnesium Sulfate 50 ml @ 0 mls/hr PROTOCOL PRN IV MAGNESIUM PROTOCOL 06/09/25 17:00 07/09/25 16:59 Methylprednisolone Sodium Succinate (Solu-medROL 40MG) 40 mg Q8H IVP 06/09/25 13:30 07/09/25 13:29 06/11/25 06:44 40 MG Metronidazole/ Sodium Chloride 100 ml @ 100 mls/hr Q8H6 IVPB 06/10/25 14:00 06/20/25 13:59 06/11/25 06:44 100 MLS/HR Midodrine (PROAMatine 5 MG TABLET) 5 mg TID PO 06/10/25 14:00 06/11/25 08:52 DC 06/10/25 20:08 5 MG Midodrine (PROAMatine 5 MG TABLET) 10 mg TID PO 06/11/25 09:00 07/11/25 08:59 Nicotine (Nicoderm) 21 mg DAILY TD 06/08/25 23:00 07/08/25 22:59 06/11/25 09:32 21 MG Norepinephrine 250 ml @ 0 mls/hr PROTOCOL IV 06/09/25 01:00 07/09/25 00:59 06/09/25 01:11 10 MLS/HR Olanzapine (ZyPREXA 5 mg tab) 5 mg BID PO 06/10/25 21:00 07/10/25 20:59 06/10/25 20:08 5 MG Ondansetron HCl (zoFRAN 4MG INJ) 4 mg Q6H PRN IV NAUSEA/VOMITING 06/08/25 20:30 07/08/25 20:29 Oseltamivir Phosphate (Tamiflu) 75 mg BID PO 06/09/25 21:00 06/10/25 09:08 DC 06/10/25 09:03 75 MG Pantoprazole Sodium (PROTonix 40MG INJ) 40 mg DAILY IVP 06/10/25 09:00 07/10/25 08:59 06/11/25 09:32 40 MG Pharmacy Profile Note (Pharmacy Communication) 1 each ONCE MISC 06/09/25 03:00 06/09/25 03:24 DC Phytonadione (Vitamin K 10mg/ 1ml Adult Vial) 10 mg DAILY SQ 06/11/25 09:00 06/13/25 15:00 06/11/25 09:32 10 MG Phytonadione (Vitamin K 10mg/ 1ml Adult Vial) 10 mg Q24H SQ 06/10/25 15:00 06/10/25 16:55 DC 06/10/25 15:11 10 MG Piperacillin Sod/ Tazobactam Sod (Zosyn 3.375gm+NS 50ml) 3.375 gm Q8H IV 06/08/25 23:00 06/10/25 09:08 DC 06/10/25 07:10 3.375 GM Potassium Chloride 100 ml @ 50 mls/hr AD PRN IV POTASSIUM PROTOCOL 06/09/25 17:00 06/11/25 06:10 DC 06/09/25 21:18 50 MLS/HR Potassium Chloride 100 ml @ 100 mls/hr AD PRN IV POTASSIUM PROTOCOL 06/09/25 17:00 07/09/25 16:59 Potassium Chloride (K-Dur/Klor-Con 20meq) 20 meq AD PRN PO POTASSIUM PROTOCOL 06/09/25 17:00 07/09/25 16:59 Potassium Chloride (KCl 10% Elixir 20meq/15ml) 20 meq AD PRN PO POTASSIUM PROTOCOL 06/09/25 17:00 07/09/25 16:59 Sodium Bicarbonate 150 meq/Sodium Chloride 1,150 ml @ 100 mls/hr [id number] IVP 06/09/25 12:00 06/09/25 12:29 DC Vancomycin HCl 250 ml @ 125 mls/hr Q24H IV 06/11/25 10:00 06/25/25 09:59 06/11/25 09:31 125 MLS/HR Vancomycin HCl (Vancomycin Protocol) 1 each AD IV 06/10/25 09:30 06/24/25 09:29 Ziprasidone (Geodon) 10 mg Q6H PRN IM AGITATION/PSYCHOSIS 06/09/25 18:00 07/09/25 17:59 06/10/25 03:49 10 MG DIAGNOSTICS / RADIOLOGY: [ ] [place] [address] IMAGING REPORT Signed PATIENT: HUGO WYLIE MR#: [id number] : 1955 SEX: F AGE: 69 LOCATION: 2CH ORDER 1141 STATUS: ADM IN [facility] REPORT#: [id number] SERVICE 1135 REASON: chf ORDERING PHYSICIAN: VY FOOTE MD PROCEDURE: CXR1VW - CHEST 1VW STUDY: X-RAY OF THE CHEST, 1 VIEW HISTORY: Congestive heart failure. TECHNIQUE: A single frontal view of the chest is submitted for interpretation. COMPARISON: Chest radiograph from 06/09/2025 at 12:15. FINDINGS: Pulmonary alejandro: Redemonstrated bilateral interstitial and patchy airspace opacities, slightly increased compared with the prior study, compatible with pulmonary edema; a multifocal infectious process is a less likely alternative given the distribution and clinical history. No new focal consolidation. Cardiac silhouette: Cardiac silhouette is mildly enlarged, increased from the prior examination. Mediastinum and anu: Mediastinal contours and hilar structures are within normal limits without convincing mediastinal widening or focal hilar mass. Osseous structures: Visualized ribs, clavicles, and thoracic spine show no acute osseous abnormality. Miscellaneous: New small bilateral pleural effusions. No pneumothorax. Interval placement of a right-sided peripherally inserted central catheter (PICC) with the tip projecting over the superior vena cava. IMPRESSION: * Mild progression of bilateral interstitial and patchy airspace opacities with new small bilateral pleural effusions and new mild cardiomegaly, most consistent with pulmonary edema in the setting of congestive heart failure, compared with the chest radiograph from 06/09/2025. * Interval placement of a right-sided PICC line with the tip in the region of the superior vena cava, in appropriate position. /[place] DICTATED BY: GIANLUCA ADAN MD DATE: 06/10/252255 ELECTRONICALLY SIGNED BY: GIANLUCA ADAN MD DATE: 06/10/252255 ASSESSMENT: Acute hypoxemic respiratory failure POA Sepsis secondary to community acquired pneumonia-POA Aortic insufficiency due to Multiple vegetations seen on the aortic valve leafelts. (2D echo 06/09/2025) Acute CHF exacerbation with possible pulmonary edema POA Elevated troponin likely due to type 2 demand ischemia POA Acute COPD exacerbation POA Nicotine Dependence POA Acute anemia POA Acute leukocytosis POA Moderate Hyponatremia and hypochloremia POA Hyperglycemia POA Lactic acidosis POA Hyperthyroidism POA Peripheral neuropathy POA History of emphysema POA History of atrial fibrillation not on anticoagulation PLAN: Acute hypoxemic respiratory failure POA On Presentation patient's respiratory rate 30, heart rate 108, saturating 96% with2 L nasal cannula Chest x-ray showed bilateral perihilar and bibasilar airspace disease Patient was started on BiPAP, DuoNeb q.4 Patient was started on IV Solu-Medrol 40 mg Q8 IV Critical Care on board, we will follow the recommendations. Sepsis secondary to community acquired pneumonia-POA On presentation heart rate 108, respiratory rate 30, white count 19.7, lactic acid 3.1 Chest x-ray showed bilateral perihilar and bibasilar airspace disease CT chest showed multifocal pneumonia bilateral lungs, pulmonary vascular congestion, pulmonary edema Vancomycin was stopped by Infectious Disease, patient was started on linezolid IV q.12h (day 1), continue cefepime (day 2) Continue doxycycline q.12h IV (day 4) , metronidazole q.8 IV (day 2) Patient is on norepinephrine drip at 0.05 mcg/mL /kg We will trend lactic acid Moderate Hyponatremia and hypochloremia POA On presentation sodium 122, chloride 93 Serum osmolality low at 274, urine osmolality normal, BNP 3370 Hyponatremia most likely due to fluid overload Continue IV Lasix 40 mg b.i.d. Sodium today 135 Nephrology on board, we will follow the recommendations. Aortic insufficiency due to Multiple vegetations seen on the aortic valve leafelts. (2D echo 06/09/2025) 2D echocardiogram showed LVEF 50-55%, normal left ventricular diastolic function, normal right ventricular systolic function Multiple vegetations seen on aortic valve leaflets, difficulty to assess severity of aortic insufficiency, moderate mitral valve regurgitation Vancomycin was stopped by Infectious Disease, patient was started on linezolid IV q.12h (day 1), continue cefepime (day 2) Continue doxycycline q.12h IV (day 4), metronidazole q.8 IV (day 2) Blood culture showed no growth so far We will Request consultation from Infectious Disease GI Prophylaxis with famotidine 20 mg IV daily DVT prophylaxis from SCDs ATTESTATION BY PHYSICIAN I have seen and examined the patient. I reviewed the documentation, medical decision making, and treatment plan as noted by the resident physician above. I agree with the findings and plan of care. MIKAYLA RAINES MD, ADIL SHAH QUADRI MD Jun 11, 2025 10:01
--- NOTE | 2025-06-11 10:23 | NUR ---
Patient is currently confused, AOX1 to self, not following commands, somewhat aggressive and combative towards nursing staff. There is a 1:1 sitter at bedside. Patient has bilateral soft hand mittens on due to attempting to pull out IV lines and Gonzalez catheter and she is also trying to get off bed. Patient placed near nurses station. Will continue to monitor patient mental status.
--- NOTE | 2025-06-11 10:43 | PN ---
INFECTIOUS DISEASE PROGRESS NOTE Date of Service: Jun 11, 2025 SUBJECTIVE: This is a 69-year-old female patient who is a current smoker admitted for shortness of breath, generalized body weakness and persistent cough for [address] chest done on admission showed multifocal pneumonia to bilateral lung alejandro and bilateral pleural effusions. A 2D echo was also done which showed vegetation on the aortic valve and the reason for this consult. During rounding today patient is still confused and oriented only to person. Patient remains on 2;1 sitter observation. Remains on oxygen via [employer]. WBC is up to 22.3 but afebrile and still on Solu-Medrol IV every 8 hours. Renal function declined, BUN is 52 and creatinine of 1.5. We will discontinue vancomycin and start patient on linezolid IV and continue to monitor closely. Patient also remains on cefepime and metronidazole as well. PHYSICAL EXAM EYES: Anicteric. Pupils equal and reactive. HENT: No oral thrush seen, moist Oral mucosa. NECK: Supple, no JVD or thyromegaly. LUNGS: Productive cough. Oxygen support. CARDIOVASCULAR: S1, S2 regular. No murmur heard. ABDOMEN: Soft, non tender, bowel sounds present. CENTRAL NERVOUS SYSTEM: Awake, alert, oriented x1. SKIN: No rashes, no swelling. LYMPHATICS: No peripheral lymphadenopathy. MUSCULOSKELETAL: No joint swelling, erythema or tenderness. EXTREMITIES: No cyanosis or clubbing. BACK: No deformity, no pressure ulcer. GENITOURINARY: No dysuria or hematuria. Gonzalez catheter. Vital Sign (Last 12 Hours) 06/10/25 06/10/25 06/10/25 06/10/25 22:23 22:38 22:52 23:07 Pulse 143 140 94 93 Resp 13 20 23 19 B/P (MAP) 137/96 (110) 139/80 (99) 103/48 (66) 93/55 (68) Pulse Ox 95 95 99 99 06/10/25 06/10/25 06/10/25 06/10/25 23:12 23:13 23:22 23:37 Temp 97.9 Pulse 89 82 Resp 21 20 B/P (MAP) 99/45 (63) 96/41 (59) Pulse Ox 92 99 99 O2 Delivery Bi-PAP+ FiO2 40 06/10/25 06/11/25 06/11/25 06/11/25 23:55 00:07 00:20 00:22 Pulse 92 81 80 88 Resp 11 22 19 20 B/P (MAP) 113/56 (75) 96/44 (61) 96/39 (58) Pulse Ox 99 100 100 FiO2 40 06/11/25 06/11/25 06/11/25 06/11/25 00:37 00:52 01:07 01:22 Pulse 73 85 83 79 Resp 21 20 20 20 B/P (MAP) 93/38 (56) 85/44 (58) 96/35 (55) 97/37 (57) Pulse Ox 100 100 100 100 06/11/25 06/11/25 06/11/25 06/11/25 01:37 01:52 02:07 02:22 Pulse 81 82 78 78 Resp 19 20 20 21 B/P (MAP) 102/42 (62) 109/49 (69) 100/45 (63) 97/49 (65) Pulse Ox 100 100 100 100 06/11/25 06/11/25 06/11/25 06/11/25 02:37 02:52 02:55 02:55 Pulse 82 84 87 Resp 20 19 20 B/P (MAP) 101/40 (60) 100/51 (67) Pulse Ox 100 100 96 O2 Delivery Bi-PAP+ FiO2 40 06/11/25 06/11/25 06/11/25 06/11/25 03:07 03:22 03:37 03:52 Pulse 82 81 79 77 Resp 20 20 20 12 B/P (MAP) 100/43 (62) 101/52 (68) 102/41 (61) 101/40 (60) Pulse Ox 100 100 100 100 06/11/25 06/11/25 06/11/25 06/11/25 03:56 04:07 04:22 04:37 Temp 97.5 Pulse 85 79 78 Resp 20 20 20 B/P (MAP) 98/42 (60) 110/40 (63) 100/48 (65) Pulse Ox 100 100 100 06/11/25 06/11/25 06/11/25 06/11/25 04:52 05:07 05:22 06:17 Pulse 78 78 81 78 Resp 20 21 20 18 B/P (MAP) 106/37 (60) 104/37 (59) 99/49 (66) Pulse Ox 100 100 100 FiO2 40 06/11/25 06/11/25 06/11/25 06/11/25 06:20 06:21 06:22 06:33 Pulse 78 85 84 82 Resp 18 18 20 18 B/P (MAP) 89/42 (58) 93/38 (56) 97/44 (61) Pulse Ox 100 100 100 06/11/25 06/11/25 06/11/25 06/11/25 06:37 06:52 09:50 10:05 Pulse 81 80 87 Resp 18 19 20 B/P (MAP) 105/25 (51) 108/42 (64) 93/40 Pulse Ox 100 100 O2 Delivery N/Cannula Oximizer Hi LPM O2 Flow Rate 5.0 FiO2 40 06/11/25 06/11/25 10:14 10:15 Pulse 89 89 Resp 20 20 O2 Delivery N/Cannula Oximizer Hi LPM O2 Flow Rate 5.0 FiO2 40 Intake & Output (last 24hrs) 06/10/25 06/10/25 06/11/25 15:00 23:00 07:00 Intake Total 995.0 ml 763.2 ml 237.2 ml Output Total 500 ml 900 ml Balance 995.0 ml 263.2 ml -662.8 ml LABS: Laboratory: Test 06/11/25 06:10 06/11/25 05:00 06/11/25 04:07 06/10/25 12:39 Range/Units Prothrombin Time 18.2 H 9.6-11.6 SEC Prothromb Time International Ratio 1.82 H 0.85-1.15 Activated Partial Thromboplast Time 67.8 H 26.3-35.5 SEC D-Dimer Quantitative (PE/DVT) 8317 *H 0-500 ng/mL Blood Gas Specimen Type Arterial Arterial Blood pH 7.349 L 7.350-7.450 Arterial Blood Partial Pressure CO2 36 32-45 mmHg Arterial Blood Partial Pressure O2 99.6 83.0-108.0 mmHg Arterial Blood HCO3 19.2 L 21.0-28.0 mmol/L Arterial Blood Oxygen Saturation 97.3 94.0-98.0 % Arterial Blood Base Excess -5.6 L -2.0-3.0 mmol/L Blood Gas Temperature 37.0 35.5-37.0 CELSIUS Blood Gas Respiration Rate 14.0 min. Blood Gas Vent Mode BIPAP 15-10 ROOM AIR FiO2 40.0 % Blood Gas Specimen Comment LB SELIN White Blood Count 22.3 #H 4.8-10.8 K/uL Red Blood Count 3.70 L 4.00-5.50 MIL/uL Hemoglobin 9.2 L 12.0-16.0 g/dL Hematocrit 27.8 L 36-48 % Mean Corpuscular Volume 75.1 L 79-99 fL Mean Corpuscular Hemoglobin 24.9 L 27.0-33.0 pg Mean Corpuscular Hemoglobin Concent 33.1 32.0-36.0 g/dL Red Cell Distribution Width 20.2 H 11.0-15.5 % Platelet Count 234 130-400 K/uL Mean Platelet Volume 10.1 7.5-10.5 fL Nucleated Red Blood Cells 0.3 H 0.0-0.19 % Sodium Level 135 L 136-145 mmol/L Potassium Level 3.1 L 3.5-5.1 mmol/L Chloride Level 101 101-111 mmol/L Carbon Dioxide Level 20 L 21-32 mmol/L Blood Urea Nitrogen 52 H 7-18 mg/dL Creatinine 1.5 H 0.5-1.0 mg/dL Glomerular Filtration Rate Calc 38 >90 mL/min Random Glucose 153 H 70-105 mg/dL Lactic Acid Level 2.0 0.8-2.5 mmol/L Total Calcium 7.2 L 8.5-10.1 mg/dL Phosphorus Level 4.7 2.5-4.9 mg/dL Magnesium Level 1.80 1.80-2.40 mg/dL Total Bilirubin 1.3 H 0.2-1.0 mg/dL Aspartate Amino Transf (AST/SGOT) 946 *H 10-37 U/L Alanine Aminotransferase (ALT/SGPT) 1026 #*H 12-78 U/L Alkaline Phosphatase 85 50-136 U/L Total Protein 5.1 L 6.0-8.3 g/dL Albumin 1.9 L 3.5-5.0 g/dL Fibrinogen 265 180-350 mg/dL Ammonia 24 11-32 umol/L Test 06/10/25 05:39 06/09/25 20:19 06/09/25 13:20 Range/Units Immature Granulocyte % (Auto) 0.8 0-1 % Neutrophils (%) (Auto) 88.0 H 40.0-77.0 % Lymphocytes (%) (Auto) 6.9 L 21.0-51.0 % Monocytes (%) (Auto) 4.2 3.0-13.0 % Eosinophils (%) (Auto) 0.0 0.0-8.0 % Basophils (%) (Auto) 0.1 0.0-5.0 % Neutrophils # (Auto) 15.0 H 1.8-7.7 K/uL Lymphocytes # (Auto) 1.2 1.0-4.8 K/uL Monocytes # (Auto) 0.7 0.1-1.0 K/uL Eosinophils # (Auto) 0.00 0.00-0.70 K/uL Basophils # (Auto) 0.01 0.00-0.20 K/uL Absolute Immature Granulocyte (auto 0.13 0-1 K/uL Serum Osmolality 291 278-305 mOsm/kg Uric Acid 10.4 H 2.6-7.2 mg/dL Hemoglobin (Blood Gas) 9.7 L 12.0-16.0 g/dL Sodium (Blood Gas) 132 L 136-145 MMOL/L Bedside Potassium (Blood Gas) 3.5 3.4-4.5 MMOL/L Bedside Chloride (Blood Gas) 105 98-107 MMOL/L Bedside Glucose (Blood Gas) 168 H 65-95 MG/DL Bedside Ionized Calcium (Blood Gas) 1.06 L 1.15-1.33 MMOL/L Bedside Lactic Acid (Blood Gas) 2.84 H 0.36-0.75 MMOL/L Urine Random Creatinine 19.30 L 30-135 mg/dL Urine Random Total Protein 32.4 H 0-11.9 mg/dL Urine Opiates Screen NEGATIVE NEGATIVE Urine Barbiturates Screen NEGATIVE NEGATIVE Urine Phencyclidine Screen NEGATIVE NEGATIVE Urine Amphetamines Screen NEGATIVE NEGATIVE Urine Benzodiazepines Screen NEGATIVE NEGATIVE Urine Cocaine Screen NEGATIVE NEGATIVE Urine Marijuana (THC) Screen NEGATIVE NEGATIVE DIAGNOSTICS / RADIOLOGY: PATIENT: HUGO WYLIE MR#: [id number] : 1955 SEX: F AGE: 69 LOCATION: [facility] ORDER 16 STATUS: ADM IN REPORT#: [id number] SERVICE 0000 REASON: acute chf exacerbation sob ORDERING PHYSICIAN: RIGOBERTO TADEO PROCEDURE: ECHO [facility] - ECHO 2-D COMPLETE APPROVED REPORT EXAM: Two-dimensional and M-mode echocardiogram with Doppler and color Doppler. INDICATION ICD: Acute congestive heart failure, shortness of breath 2D Dimensions RVDd 3.1 cm LVEF(%) 26.1 (>50%) LA ESV INDEX (BP) 35.28 mL/m2 IVSd 1.0 (0.7-1.1cm) FS(%) 12 % LVDd 5.0 (3.8-5.6cm) LA (2D) 4.3 (1.6-4.0cm) PWd 1.0 (0.7-1.1cm) Ao Root(2D) 3.4 (2.0-3.7cm) IVSs 1.0 cm LVOT diam 1.9 (1.8-2.4cm) LVDs 4.4 (2.5-4.0cm) PWs 1.6 cm Aortic Valve AoV Vmax 2.2 m/s Ao Peak GR 18.9 mmHg LVOT Vmax 1.6 m/s AoV VTI 0.3 m Ao Mean GR 9.2 mmHg LVOT VTI 0.24 m PATTIE (VMAX) 2.03 cm2 Al P1/2T 129 ms PATTIE (VTI) 2.0 cm2 Mitral Valve MV E Vmax 144.1 cm/s DECEL Time 105 ms MV A Vmax 82.2 cm/s P 1/2 T 34 ms E/A ratio 1.8 MVA (PHT) 6.5 cm2 TDI E/E' Medial 31.4 E/E' Lateral 15.7 Medial E' Peak V 4.59 cm/s Lateral E' Peak V 9.15 cm/s Pulmonary Valve PV Vmax 1.1 m/s PV Mean GR 2.1 mmHg PV Peak GR 4.6 mmHg Tricuspid Valve TR Vmax 2.1 m/s RAP (EST) 8 mmHg RVSP 26.1 mmHg TR Peak GR 18.1 mmHg Left Ventricle The left ventricle is normal size. There is normal LV segmental wall motion. There is normal left ventricular wall thickness. LVEF is 50-55%. The left ventricular diastolic function is normal. Right Ventricle The right ventricle is normal size. The right ventricular systolic function is normal. Atria The left atrium is mildly dilated. The right atrium is mildly dilated. Aortic Valve Aortic valve is trileaflet and opens well. Difficult to assess severity of a ortic insufficiency. Would estimate [id number] Multiple vegetations seen on the aortic valve leafelts. Large Right coronary cusp leaflet vegetation seen protruding into the LVOT. Small non coronary cusp leaflet vegetation seen. Small left coronary cusp leaflet vegetation noted. There is no aortic valvular stenosis. Mitral Valve The mitral valve is normal in structure. There is moderate mitral valve regurgitation noted. There is no mitral valve stenosis. Tricuspid Valve The tricuspid valve is normal in structure. There is no tricuspid valve regurgitation noted. Pulmonic Valve The pulmonary valve is normal in structure. There is mild pulmonic valvular regurgitation. Great Vessels The aortic root is normal in size. IVC is not well visualized. Pericardium There is trivail pericardial effusion seen posteriorly Other Information Quality : Technically challenging study due to body habitus and limited cooperation of pt Conclusion LVEF is 50-55%. LVEF is 50-55%. Multiple vegetations seen on the aortic valve leafelts. Large Right coronary cusp leaflet vegetation seen protruding into the LVOT. Small non coronary cusp leaflet vegetation seen. Small left coronary cusp leaflet vegetation noted. Difficult to assess severity of aortic insufficiency. Would estimate [id number] There is moderate mitral valve regurgitation noted. DICTATED BY: BEN BROWN MD DATE: 06/09/25 0723 ELECTRONICALLY SIGNED BY: BEN BROWN MD DATE: 06/09/25 1314 ASSESSMENT: Hypoxic respiratory failure, requiring oxygen support. Multifocal pneumonia. Aortic valve Endocarditis. Sepsis. Acute renal failure. Multifactorial encephalopathy. Chronic obstructive pulmonary disease exacerbation. Chronic tobacco use. Atrial fibrillation. PLAN: Discontinue vancomycin. Start linezolid 600 mg IV q.12. Continue cefepime. Continue doxycycline. Continue GI prophylaxis. Continue bronchodilators. Continue oxygen support. Monitor renal function. This case was reviewed and discussed with my supervising physician Dr. Boyce and the above assessment and plan was formulated and agreed upon. ATTESTATION BY PHYSICIAN I have seen and examined the patient. I reviewed the documentation, medical decision making, and treatment plan as noted by the mid-level provider above. I agree with the findings and plan of care. RIKY BOYCE MD, [facility] Jun 11, 2025 10:42
--- NOTE | 2025-06-11 11:19 | PN ---
[facility] CARDIOLOGY PROGRESS NOTE Date Patient Seen: Jun 11, 2025 Time of Visit: 11:12 Interval History: [ No acute events overnight. Review of telemetry sinus rhythm PACs with a bigeminy pattern, heart rate in the 80s, patient is unresponsive, to oral comm ands no volume overloaded noted below currently with BiPAP support. No documented growth on blood cultures.] Physical Examination: GENERAL: [No acute distress.] HEAD: [Normal with no signs of head trauma.] EYES: [PERRLA, EOMI, conjunctiva and sclera normal.] ENT: [Hearing grossly intact, normal oropharynx.] NECK: [Supple without JVD. There is no tenderness, lymphadenopathy, or masses. No thyromegaly. Normal carotid upstrokes without bruits.] LUNGS: [Clear breath sounds bilaterally.. No wheezes, or rhonchi.] HEART: [Normal rate and rhythm. Normal S1 and S2 without murmurs, gallop or rub.] VASC: [Peripheral pulses +2 bilaterally.] ABD: [Bowel sounds normal, soft, nontender, no masses, no organomegaly. No audible bruits.] : [Not examined] LYMPH: [No lymphadenopathy noted.] EXT: [No clubbing, cyanosis or edema.] SKIN: [No rashes or lesions noted.] NEURO: [Awake, alert, and oriented x3. No focal sensory or strength deficits noted.] Laboratory: [ ] Hematology Labs: Test 06/11/25 04:07 06/10/25 05:39 Range/Units White Blood Count 22.3 #H 4.8-10.8 K/uL Red Blood Count 3.70 L 4.00-5.50 MIL/uL Hemoglobin 9.2 L 12.0-16.0 g/dL Hematocrit 27.8 L 36-48 % Mean Corpuscular Volume 75.1 L 79-99 fL Mean Corpuscular Hemoglobin 24.9 L 27.0-33.0 pg Mean Corpuscular Hemoglobin Concent 33.1 32.0-36.0 g/dL Red Cell Distribution Width 20.2 H 11.0-15.5 % Platelet Count 234 130-400 K/uL Mean Platelet Volume 10.1 7.5-10.5 fL Nucleated Red Blood Cells 0.3 H 0.0-0.19 % Immature Granulocyte % (Auto) 0.8 0-1 % Neutrophils (%) (Auto) 88.0 H 40.0-77.0 % Lymphocytes (%) (Auto) 6.9 L 21.0-51.0 % Monocytes (%) (Auto) 4.2 3.0-13.0 % Eosinophils (%) (Auto) 0.0 0.0-8.0 % Basophils (%) (Auto) 0.1 0.0-5.0 % Neutrophils # (Auto) 15.0 H 1.8-7.7 K/uL Lymphocytes # (Auto) 1.2 1.0-4.8 K/uL Monocytes # (Auto) 0.7 0.1-1.0 K/uL Eosinophils # (Auto) 0.00 0.00-0.70 K/uL Basophils # (Auto) 0.01 0.00-0.20 K/uL Absolute Immature Granulocyte (auto 0.13 0-1 K/uL Chemistry Labs: Test 06/11/25 04:07 06/10/25 12:39 06/10/25 05:39 Range/Units Sodium Level 135 L 136-145 mmol/L Potassium Level 3.1 L 3.5-5.1 mmol/L Chloride Level 101 101-111 mmol/L Carbon Dioxide Level 20 L 21-32 mmol/L Blood Urea Nitrogen 52 H 7-18 mg/dL Creatinine 1.5 H 0.5-1.0 mg/dL Glomerular Filtration Rate Calc 38 >90 mL/min Random Glucose 153 H 70-105 mg/dL Lactic Acid Level 2.0 0.8-2.5 mmol/L Total Calcium 7.2 L 8.5-10.1 mg/dL Phosphorus Level 4.7 2.5-4.9 mg/dL Magnesium Level 1.80 1.80-2.40 mg/dL Total Bilirubin 1.3 H 0.2-1.0 mg/dL Aspartate Amino Transf (AST/SGOT) 946 *H 10-37 U/L Alanine Aminotransferase (ALT/SGPT) 1026 #*H 12-78 U/L Alkaline Phosphatase 85 50-136 U/L Total Protein 5.1 L 6.0-8.3 g/dL Albumin 1.9 L 3.5-5.0 g/dL Ammonia 24 11-32 umol/L Serum Osmolality 291 278-305 mOsm/kg Uric Acid 10.4 H 2.6-7.2 mg/dL Coagulation Labs: Test 06/11/25 06:10 06/10/25 12:39 Range/Units Prothrombin Time 18.2 H 9.6-11.6 SEC Prothromb Time International Ratio 1.82 H 0.85-1.15 Activated Partial Thromboplast Time 67.8 H 26.3-35.5 SEC D-Dimer Quantitative (PE/DVT) 8317 *H 0-500 ng/mL Fibrinogen 265 180-350 mg/dL Diagnostics / Radiology: [Copy/Paste Echos/Imaging Report here] Impression and Plan: 1. Sepsis in the setting of multifocal pneumonia. 2. Infective endocarditis involving the aortic valve. 3. Preserved LVEF. 4. Acute delirium. ] # aortic valve endocarditis She presented with sepsis with multifocal pneumonia and was found to have aortic valve endocarditis. She underwent echocardiogram 06/09/2025 which showed an ejection fraction of 50- 55% with normal diastolic function, large right coronary cusp leaflet vegetation protruding into the LVOT, small non coronary cusp leaflet vegetation and small left coronary cusp leaflet vegetation with [id number] aortic valve regurgitation, moderate mitral valve regurgitation and trivial pericardial effu zak She is currently on antibiotic therapy. Infectious Disease has been consulted for further management. No evidence of growth in blood cultures History of atrial fibrillation and CVA is documented in her chart on this admission. We are currently unable to obtain this history from the patient due to acute delirium. Review of current telemetry shows sinus rhythm with PACs, with a bigeminy pattern, with a heart rate in the 80s. Patient continues to be altered, unresponsive to oral commands, on BiPAP sup port. Please keep on telemetry, monitor/replace electrolytes as needed We will recommend continue to broad-spectrum antibiotics, infectious disease recommendations Thank you for this consult cardiology will continue to follow along Juanjo lynn MD ATTESTATION BY PHYSICIAN I have seen and examined the patient, reviewed the above documentation, participated in medical decision making, made necessary modifications, and agree with the treatment plan as documented by my mid-level provider above. MD DEREK Barajas JAMES R MD Jun 11, 2025 11:19
[2025-06-11] MEDS ORDERED: PHARMACY COMMUNICATION MISC SCH (11:30)
[2025-06-11] MEDS ORDERED: LINEZOLID 600 MG/ISO-OSM 300 ML IV SCH (11:30)
[2025-06-11] MEDS: MAGNESIUM 2GM PREMIX 50ML 50 ML IV PRN (13:11)
[2025-06-11] MEDS: LINEZOLID 600 MG/ISO-OSM 300 ML IV SCH (15:43)
--- NOTE | 2025-06-11 17:19 | NUR ---
pt pulling on mcdermott, screaming, anxious, fighting with friend veena. dr. tovar made aware new order for 1 time dose of geodon 10mg iv Addendum: 06/11/25 at 1721 by AISLINN CELESTIN RN RN im, instead of IV
--- NOTE | 2025-06-11 17:22 | NUR ---
pt pulling on mcdermott, screaming, anxious, fighting with friend veena. dr. tovar made aware. PER MD PT TO HAVE COLLEEN PRUITT ORDERED.
--- NOTE | 2025-06-11 19:41 | PN ---
[facility] PROGRESS NOTE Date Patient Seen: Jun 11, 2025 Time of Visit: 19:39 Supervising Physician: YV FOOTE MD Primary Care Physician: [Dr. Yoel Pierson] Outpatient Specialists: [ ] Inpatient Consults: [[facility]-ICU ] PROBLEM LIST: Acute hypoxic respiratory failure on admission Sepsis 2/2 community acquired pneumonia-POA Aortic valve vegetations Bacterial endocarditis with negative blood cultures Hepatic transaminitis NSTEMI-likely type II 2/2 demand ischemia from hypoxia vs. true cardiac etiology-POA- negative for chest pain or ST/T wave abnormality. HEART score 6 points=12-16.6% risk for MACE Possible new-onset CHF with exacerbation-POA Hyperlactatemia-POA Acute delirium Acute COPD exacerbation Emphysema secondary to tobacco use disorder Pulmonary edema-POA Bilateral pleural effusions-POA Moderate hyponatremia, suspected acute-POA Sleep deprivation 2/2 current illness-POA History of paroxysmal AFib Chronic nicotine disorder: [id number] HX Prior CVA Hyperthyroid disorder/Graves disease with right thyroid nodule INTERVAL HISTORY: The patient is seen in the ICU. She is more awake and more alert today. Still confused and oriented mostly to self. Overall, hemodynamically stable. Her blood pressure is soft and in the mid 90s. She remains on Levophed at 0.02 mcg and continues on Precedex drip Currently on high-flow oxygen at 5 L[place] [address] Pending HIDA scan Marked jaundice No fevers, no chills. No cough and no congestion reported. REVIEW OF SYSTEMS: Patient confused, agitated. PHYSICAL EXAM: GENERAL: alert, awake oriented x 3. Positive jaundice HEENT: EOMI, Sclera non icteric, dry mucosa NECK: Supple, no JVD, trachea midline LUNGS: Bilateral crackles, no wheezing HEART: Regular rate and rhythm. Normal S1 and S2, without murmurs, tachycardia ABD: Abdomen soft, nontender. Bowel sounds present EXT: No clubbing cyanosis or edema NEURO: Awake, alert and oriented to self only. Remains on Precedex Vital Signs (last 8hr) Date Time Temp Pulse Resp B/P (MAP) Pulse Ox O2 Delivery O2 Flow Rate FiO2 06/11/25 19:08 92 22 121/59 (79) 90 06/11/25 18:30 98 20 11/28/25 18:30 93 20 N/Cannula Oximizer Hi LPM 5.0 40 06/11/25 18:30 86 16 112/49 (70) 100 06/11/25 18:15 92 16 103/52 (69) 98 06/11/25 18:00 90 22 108/47 (67) 94 06/11/25 17:45 83 16 106/46 (66) 95 06/11/25 17:30 91 12 104/51 (68) 95 06/11/25 17:15 87 10 107/50 (69) 95 06/11/25 17:00 90 14 106/50 (68) 96 06/11/25 16:45 96 16 107/47 (67) 96 06/11/25 16:30 81 19 111/50 (70) 95 06/11/25 16:21 98.1 06/11/25 16:15 90 11 111/50 (70) 95 06/11/25 16:00 90 19 95 06/11/25 16:00 90 19 112/47 (68) 95 06/11/25 16:00 98 Nasal Cannula* 5 40 06/11/25 15:45 83 19 107/47 (67) 95 06/11/25 15:30 91 19 113/44 (67) 95 06/11/25 15:15 90 19 113/50 (71) 96 06/11/25 15:00 84 19 108/47 (67) 96 06/11/25 14:45 81 19 110/54 (72) 95 06/11/25 14:30 76 18 107/53 (71) 99 06/11/25 14:24 88 20 06/11/25 14:23 88 20 N/Cannula Oximizer Hi LPM 5.0 40 06/11/25 14:15 74 15 102/51 (68) 100 06/11/25 14:00 77 17 110/48 (68) 97 06/11/25 13:45 77 20 99/50 (66) 98 06/11/25 13:30 77 20 104/52 (69) 98 06/11/25 13:15 79 19 102/51 (68) 97 06/11/25 13:00 76 19 105/44 (64) 99 06/11/25 12:45 76 19 108/46 (66) 99 06/11/25 12:30 78 18 94/56 (69) 97 06/11/25 12:15 80 19 97/55 (69) 95 06/11/25 12:00 98 Nasal Cannula* 5 40 06/11/25 12:00 80 19 96 06/11/25 11:52 77 20 106/36 (59) 97 LABS: Hematology Labs: Test 06/11/25 04:07 06/10/25 05:39 Range/Units White Blood Count 22.3 #H 4.8-10.8 K/uL Red Blood Count 3.70 L 4.00-5.50 MIL/uL Hemoglobin 9.2 L 12.0-16.0 g/dL Hematocrit 27.8 L 36-48 % Mean Corpuscular Volume 75.1 L 79-99 fL Mean Corpuscular Hemoglobin 24.9 L 27.0-33.0 pg Mean Corpuscular Hemoglobin Concent 33.1 32.0-36.0 g/dL Red Cell Distribution Width 20.2 H 11.0-15.5 % Platelet Count 234 130-400 K/uL Mean Platelet Volume 10.1 7.5-10.5 fL Nucleated Red Blood Cells 0.3 H 0.0-0.19 % Immature Granulocyte % (Auto) 0.8 0-1 % Neutrophils (%) (Auto) 88.0 H 40.0-77.0 % Lymphocytes (%) (Auto) 6.9 L 21.0-51.0 % Monocytes (%) (Auto) 4.2 3.0-13.0 % Eosinophils (%) (Auto) 0.0 0.0-8.0 % Basophils (%) (Auto) 0.1 0.0-5.0 % Neutrophils # (Auto) 15.0 H 1.8-7.7 K/uL Lymphocytes # (Auto) 1.2 1.0-4.8 K/uL Monocytes # (Auto) 0.7 0.1-1.0 K/uL Eosinophils # (Auto) 0.00 0.00-0.70 K/uL Basophils # (Auto) 0.01 0.00-0.20 K/uL Absolute Immature Granulocyte (auto 0.13 0-1 K/uL Chemistry Labs: Test 06/11/25 11:25 06/11/25 04:07 06/10/25 12:39 06/10/25 08:14 Range/Units Whole Blood Glucose 150 H 70-110 MG/DL Sodium Level 135 L 136-145 mmol/L Potassium Level 3.1 L 3.5-5.1 mmol/L Chloride Level 101 101-111 mmol/L Carbon Dioxide Level 20 L 21-32 mmol/L Blood Urea Nitrogen 52 H 7-18 mg/dL Creatinine 1.5 H 0.5-1.0 mg/dL Glomerular Filtration Rate Calc 38 >90 mL/min Random Glucose 153 H 70-105 mg/dL Lactic Acid Level 2.0 0.8-2.5 mmol/L Total Calcium 7.2 L 8.5-10.1 mg/dL Phosphorus Level 4.7 2.5-4.9 mg/dL Magnesium Level 1.80 1.80-2.40 mg/dL Total Bilirubin 1.3 H 0.2-1.0 mg/dL Aspartate Amino Transf (AST/SGOT) 946 *H 10-37 U/L Alanine Aminotransferase (ALT/SGPT) 1026 #*H 12-78 U/L Alkaline Phosphatase 85 50-136 U/L Total Protein 5.1 L 6.0-8.3 g/dL Albumin 1.9 L 3.5-5.0 g/dL Ammonia 24 11-32 umol/L Cortisol AM Sample 35.2 H 6.2-19.4 ug/dL Test 06/10/25 05:39 Range/Units Serum Osmolality 291 278-305 mOsm/kg Uric Acid 10.4 H 2.6-7.2 mg/dL Coagulation Labs: Test 06/11/25 06:10 06/10/25 12:39 Range/Units Prothrombin Time 18.2 H 9.6-11.6 SEC Prothromb Time International Ratio 1.82 H 0.85-1.15 Activated Partial Thromboplast Time 67.8 H 26.3-35.5 SEC D-Dimer Quantitative (PE/DVT) 8317 *H 0-500 ng/mL Fibrinogen 265 180-350 mg/dL DIAGNOSTICS / RADIOLOGY RESULTS: [ ] PLAN Iron panel Wean off Precedex Continue Zyprexa Continue Geodon Slowly wean off Levophed Slowly wean down O2 as tolerated Patient remains critically ill and requires medical management and treatment in the ICU NEURO: Minimize central acting medications as possible. Fall Precautions. Well lighted room through the day and minimize interruptions through the night to prevent acute delirium. PULMONARY: Supplemental 02 as needed Titrate Fio2 to keep Spo2 > or = 90% DuoNebs and CPT as needed IS hourly while awake for pulmonary hygiene Out of bed to chair as tolerated VAP Bundle Vent/BIPAP Settings: [ ] Driving pressure: [ ] P Plat: [ ] Static C: [ ] Static R: [ ] P/F Ratio: [ ] CARDIOVASCULAR: Follow hemodynamics. Titrate vasopressor to keep MAP >65 or systolic blood pressure >95mmHg DRIPS: [Precedex] LINES: [ ] GI & NUTRITION: Continue nutritional support Aspirations precautions Prokinetic agents and laxatives as needed KIDNEYS & ELECTROLYTES: Strict monitoring of intake and output Daily weights Avoid nephrotoxic agents Monitor electrolytes and replace as needed Goal urine output of 30mL/hr or 0.5mL/kg/hr Urine output: [ ] Fluid Balance: [ ] ENDOCRINE: Maintain blood glucose between 100-180 at all times. Insulin sliding scale for blood glucose management INFECTIOUS DISEASE: Trend temperature. Dubois-culture if febrile. Micro: [ ] Antibiotics: [Vancomycin and Cefepime ] HEMATOLOGY & COAGULATION: Monitor H&H. Keep Hgb > 7 Transfuse 1 unit of PRBC for Hgb < 7 Transfuse 1 pack of platelets of platelets < 20, 000 Watch for any signs and symptoms of bleeding SKIN: Pressure ulcer prevention per facility protocol Rehab: PT/OT Prophylaxis: GI: [Pepcid ] DVT: [Heparin] Code Status: Full Resuscitation Disposition: [ICU] Other: Total patient care time: 35 minutes I personally scribed for VY FOOTE MD (MARK) on 06/11/25 at 19:41. Electronically submitted by Mark Singh ([email or web address]). VY FOOTE MD Jun 11, 2025 19:41
--- NOTE | 2025-06-11 20:38 | PN ---
SUBJECTIVE: A 69-year-old female, initially presented with pneumonia. The patient has a history of endocarditis. The patient remains on IV antibiotics. The patient with worsening respiratory distress overnight, now is on BiPAP. She has had acute on chronic renal failure in the hospital. The patient has been started on the diuretics and she is being seen as a followup visit for all the above. REVIEW OF SYSTEMS: She is on BiPAP, really unable to give any form of review of systems. PHYSICAL EXAMINATION: VITAL SIGNS: Blood pressure 108/42, on the pressors, pulse in the 80s. GENERAL: She is a chronically ill female, lying in bed in the ICU. HEENT: Head is atraumatic. Pupils are equal, round, reactive to light. Oropharynx is without exudate. Nares are clear. NECK: There is no JVP. There is no thyromegaly, no mass. CARDIOVASCULAR: Regular. There is no S3 or S4 gallop. LUNGS: Coarse with equal thoracic movement. ABDOMEN: Soft, nondistended, nontender. EXTREMITIES: Reveal no clubbing, no cyanosis. NEUROLOGIC: She is awake. She is at her baseline. LABORATORY DATA: Sodium 135, potassium 3, BUN 52, creatinine 1.5. LFTs have improved overnight. Hemoglobin 9.2, hematocrit 27. IMPRESSION: * Acute on chronic renal failure. * Respiratory failure. * Endocarditis. * Hypotension. PLAN: The patient with renal dysfunction. Creatinine has remained fairly stable. She remains on the diuretics for the volume overload. The patient remains on broad spectrum IV antibiotics. The patient's midodrine will be increased to 10 mg t.i.d. She remains on the pressors as needed. We will continue to follow closely. I did discuss with the patient's . TID: [id number] RECEIPT: [id number]
[2025-06-12] VITALS (85 sets, daily range): BP systolic 92–137; BP diastolic 39–79; PULSE 77–191; RESP 9–49; TEMP 96.5–98.5; O2SAT 90–98
--- NOTE | 2025-06-12 03:10 | NUR ---
spoke with caitlin freedmanog chief deputy about patient situation, notified him about patient being in Afib RVR, in the 160s with 200 being the highest. Patient in no distress, no complaints of shortness of breath or chest pain. She still oriented to self only. As per caitlin freedmanog chief deputy, give 2.5 metoprolol IV q6 as needed for heart rate greater than 110 and give 2mg of magnesium.
[2025-06-12 03:51] LABS: IMMATURE GRANULOCYTE ABSOLUTE 0.15 K/uL (0-1); NUCLEATED RED BLOOD CELLS 0.3 % (0.0-0.19); PLATELET COUNT (AUTO) 226 K/uL (130-400); RED BLOOD CELL COUNT(AUTO) 3.89 MIL/uL (4.00-5.50); RED CELL DISTRIBUTION WIDTH 20.6 % (11.0-15.5); WHITE BLOOD COUNT (AUTO) 22.4 K/uL (4.8-10.8)
[2025-06-12 03:54] LABS: ABG BASE EXCESS -5.5 mmol/L (-2.0-3.0); ABG HCO3 17.1 mmol/L (21.0-28.0); ABG OXYGEN SATURATION 93.7 % (94.0-98.0); ABG PCO2 27 mmHg (32-45); ABG PH 7.425 (7.350-7.450); PO2, ARTERIAL BG 65.5 mmHg (83.0-108.0); TEMPERATURE, CELSIUS BG 37.0 CELSIUS (35.5-37.0); VENT MODE, BG HFNC (ROOM AIR)
[2025-06-12 04:09] LABS: INR 1.59 (0.85-1.15)
[2025-06-12 04:12] LABS: GLOMERULAR FILTR. RATE CALC 45 mL/min (>90); PHOSPHORUS 3.4 mg/dL (2.5-4.9); TOTAL PROTEIN, SERUM 5.5 g/dL (6.0-8.3)
[2025-06-12 04:15] LABS: ASPARTATE AMINOTRANSFERASE 316 U/L (10-37); CREATININE 1.3 mg/dL (0.5-1.0); GLUCOSE,RANDOM 165 mg/dL (70-105); SODIUM SERUM 133 mmol/L (136-145); UREA NITROGEN, BLOOD 49 mg/dL (7-18)
--- NOTE | 2025-06-12 04:50 | NUR ---
Contacted taha nonog candy dipper for continued elevated HR in the 160s-170s. as per taha nonog to give 1x dose of metoprolol 5mg IV, if no decrease of HR in about 15 mins, to give amiodarone bolus and start amiodarone drip, as per taha nonog candy dipper
--- NOTE | 2025-06-12 05:05 | NUR ---
respiratory therapy came by and gave patient a paper to sign for the refusal of treatment for the use of BiPap, patient refused to use the BiPAP and refused to sign refusal paper. thank you.
[2025-06-12] MEDS: AMIOdarone 150MG/100ML BAG 100 ML IV SCH (05:10)
[2025-06-12] MEDS: AMIODARONE 360MG/200ML BAG 200 ML IV SCH (05:11)
--- NOTE | 2025-06-12 05:16 | NUR ---
Patient refusing bipap and refused to sign refusal form , she was advised that she would benefit from it and explained the reasons why nurse and RT recommending for her to use it. Po2 65.5 , sats 93%, HR 164.
--- NOTE | 2025-06-12 06:03 | NUR ---
trenton from speech therapy came by, she stated that they do not do the NBSS on the weekends, she will do a bedside version, then a redo on saturday.
--- NOTE | 2025-06-12 06:08 | HMCIMG ---
STUDY: X-RAY OF THE CHEST, 1 VIEW HISTORY: Congestive heart failure. TECHNIQUE: A single frontal view of the chest is submitted for interpretation. COMPARISON: Chest radiograph from 06/10/2025 at 12:15. FINDINGS: Pulmonary alejandro: Redemonstrated bilateral interstitial and patchy airspace opacities, reduced compared with the prior study. No new focal consolidation. Cardiac silhouette: Cardiac silhouette is mildly enlarged, reduced from prior examination. Mediastinum and anu: Mediastinal contours and hilar structures are within normal limits without convincing mediastinal widening or focal hilar mass. Osseous structures: Visualized ribs, clavicles, and thoracic spine show no acute osseous abnormality. Miscellaneous: New small bilateral pleural effusions. No pneumothorax. Interval placement of a right-sided peripherally inserted central catheter (PICC) with the tip projecting over the superior vena cava. IMPRESSION: Interval reduction of bilateral interstitial and patchy airspace opacities with improvement in cardiomegaly, compared with the chest radiograph from 06/10/2025. Right-sided PICC line with the tip in the region of the superior vena cava, in an appropriate position. /[place]
--- NOTE | 2025-06-12 06:48 | NUR ---
spoke with caitlin freedmanog about patient condition, still tachycardic heart rate in the 170s-200 despite bolus of amiodarone 150, and amiodarone drip. As per talance nonog, give another bolus of amiodarone 150, if patient heart rate does not change to give another bolus of 150 amiodarone. To keep patient above potassium of 4.0, and to give another 20 meq bag, 40 meq of potassium has already been given
[2025-06-12] MEDS ORDERED: AMIOdarone 150MG/100ML BAG 100 ML IV SCH (07:00)
--- NOTE | 2025-06-12 08:28 | NUR ---
BEDSIDE DYSPHAGIA EVALUATION COMPLETED. MILD ORAL DYSPHAGIA PRESENT. RECOMMENDATIONS: SOFT & BITE SIZED, THIN LIQUIDS, PILLS WHOLE ONE AT A TIME. ORDER CLARIFICATION FOR BEDSIDE DYSPHAGIA EVALUATION OBTAINED FROM [facility]AN[facility]. MBSS CANCELLED AT THIS TIME. GOALS SKILLED SPEECH THERAPY IS RECOMMENDED 1-5XWK TOLERATED BY PATIENT TARGETING THE FOLLOWING GOALS: LTG1: PATIENT WILL TOLERATE LEAST RESTRICTIVE DIET WITH NO OVERT S/S OF ASPIRATION AND MEET ADEQUATE NUTRITION/HYDRATION. STG1: PATIENT WILL COMPLETE OMEX WITH 80% ACCURACY. STG3: PATIENT WILL TOLERATE THERAPEUTIC TRIALS OF ADVANCED TEXTURES OF REGULAR SOLIDS WITH NO OVERT S/S OF ASPIRATION OR PHYSIOLOGICAL SIGNS OF DISTRESS. STG4: SKILLED EDUCATION PATIENT/FAMILY/STAFF WITH 90% ACCURACY USING TECH BACK METHOD.
--- NOTE | 2025-06-12 09:30 | NUR ---
Dr. Mary Lazcano rounded on patient. updated on patient status. MD ordered scheduled metoprolol and an increase in Lasix dosage.
--- NOTE | 2025-06-12 09:37 | HMCIMG ---
EXAM: CR Chest, 1 View. CLINICAL HISTORY: CHF COMPARISON: 06/11/2025 FINDINGS: The right PICC line tip is at the SVC. LUNGS: Interval improvement in the bilateral interstitial and patchy airspace opacities. PLEURAL SPACES: No pleural effusion or pneumothorax. MEDIASTINUM: Mild stable cardiomegaly with pulmonary vascular congestion. BONES: No aggressive appearing osseous lesion seen. Cervical spine fusion hardware. IMPRESSION: 1. Bilateral interstitial and patchy airspace opacities, reduced since the prior study. 2. Mild stable cardiomegaly. 3. Right PICC line tip at the SVC. /[place]
[2025-06-12] MEDS: AMIODARONE 540 MG/D5W 300ML (0.5MG/MIN) IV SCH (11:33)
--- NOTE | 2025-06-12 11:36 | PN ---
[facility] PROGRESS NOTE Date of Service: Jun 12, 2025 Time of Service: 11:36 SUBJECTIVE: HISTORY OF PRESENT ILLNESS: This is a 69-year-old female past medical history of emphysema peripheral neuropathy, atrial fibrillation and hyperthyroidism who was brought by EMS to the ED for complaints of shortness of breaths,dry cough and generalized body weakness which started for the past 3 weeks and getting worse this past few days.Patient reports she lives alone and a current heavy cigarette smoker 1 pack/day.As per patient she has been going to her PCP every week x 3 weeks and was started on steroids prednisone and inhaler and patient also reports was admitted for having atrial fibrillation last 05/09/25 and was seen by at [facility] [place]. Patient reports has not seen a musculoskeletal physiotherapist.Patient complaints of chest tightness with dry cough for the past 3 weeks but has not improved and its getting worse so she decided to come to the ED .On further evaluation ,patient was asked by the undersigned if it come to appoint where she needs to be orally intubated and patient states she is okay and in the meantime she wants to try t he Bipap. Seen and examined patient in the ER awake,alert and appears very short of breath,she has a friend at bedside and helping her from time to time with medical history as patient appears anxious as well.Patient denies chest pain,palpitation,nausea,vomiting and fever. Latest vital signs temperature 98.1, heart rate 110, respiration 35, blood pressure 140/56 saturation 96 on BiPAP 40% FiO2. Labs: WBC 19 with negative left shift of neutrophils 84, hemoglobin 9, hematocrit 30, platelet count 386. Sodium 122, chloride 93, CO2 18, BUN 23, glucose 140, lactic acid 3.1 troponin 112 BNP 3370. D-dimer 3746, PT 15, INR 1.4 PTT 28. Influenza type a and B negative SARS COVID negative. Chest x-ray result revealed bilateral perihilar and bibasilar airspace disease possibly representing pulmonary edema with small bilateral pleural effusion. [id number] cardiomegaly and pulmonary vascular congestion. While in the ER patient received Solu-Medrol 125 mg IV, albuterol two unit dose via inhalation, levofloxacin 750 mg IV, Protonix 40 mg, NS 500 mL bolus, Lasix 80 mg IV and morphine 2 mg IV. Patient was started on Precedex per ICU rec ommendation. Admit patient for further medical management. 06/09/2025: The patient was seen and evaluated bedside in ICU, no family at bedside. Patient is agitated, anxious on max doses of Precedex, saturating 100% with FiO2 60 on BiPAP. Patient is currently on norepinephrine drip 0.05 mcg/mL/kg and heparin drip q.[address] chest showed no pulmonary thromboembolism, small to medium pericardial effusion, cardiomegaly, pulmonary vascular congestion, pulmonary edema and multifocal pneumonia in bilateral lung alejandro. Continue Zosyn, doxycycline, IV Lasix, Solu-Medrol IV. Morning lab showed white count 17.4, sodium 124, bicarb 14, lactic acid 3.7, troponin 178, BNP 3060, AST 1479, ALT 561. Patient has bicarb deficit of 336, we ordered sodium bicarbonate 100 mEq single dose and we will repeat bicarb this evening. Nephrology, Cardiology, critical Care on board we will continue to follow the recommendations. 06/10/2025: The patient was seen and evaluated bedside in ICU, no family at bedside. Patient is currently on Precedex, norepinephrine drip. Abdominal ultrasound showed focal edematous wall thickening of gallbladder with minimal pericholecystic fluid, recommended HIDA scan if there is persistent clinical concern for cholecystitis. Lab showed white count trending down to 17.1, lactic acid trending down to 3, AST 3143, ALT 1515. Zosyn has been discontinued by Infectious Disease, patient was started on cefepime and vancomycin. Cardiology recommended transesophageal echocardiography once the patient become more stable. 06/11/2025: The patient was seen and evaluated bedside in ICU, no family at bedside. Patient is currently on one-to-one sitter. Patient continues to be on Precedex, norepinephrine, heparin drip. Morning lab shows white count 22.3, sodium 135, potassium 3.1, BUN 52, creatinine 1.5, fibrinogen 265, lactic acid trended down to 2, AST trended down to 946, ALT trended down to 1026. Blood culture shows no growth so far. Continue IV antibiotics as recommended by Infectious Disease. 06/12/2025: Patient was evaluated bedside in room 215 and several family members were present at the bedside. Patient also has 2 on 1 sitter. Patient was awake and alert but is mildly confused. Patient is still recovering from sepsis from community-acquired pneumonia and her white count remained stable at 22.4k. Patient oxygenating well via high-flow nasal cannula Oxymizer with flow rate of 5 L. Still continues on amiodarone drip due to AFib with telemetry consistent with Afib. Patient is still pending a HIDA scan and VICK due to her respiratory status. We will continue linezolid, cefepime and doxycycline and start to taper methylprednisolone as per critical Care recommendations. REVIEW OF SYSTEMS CONSTITUTIONAL: Denies fevers, chills, or night sweats. No unintentional weight loss reported. NEUROLOGICAL: Denies headache, amaurosis fugax, motor weakness, sensory deficit, vertigo/spinning sensation, gait abnormalities, or tremors. ENT: No hearing loss, otalgia, otorrhea, rhinitis, rhinorrhea, hoarseness, or sore throat. CARDIOVASCULAR: Denies any exertional angina, dyspnea on exertion, orthopnea, paroxysmal nocturnal dyspnea, palpitations, life-threatening arrhythmias, claudication. PULMONARY: Complaints of shortness of breaths, dry cough and chest tightness x3 weeks Denies phlegm/sputum, hemoptysis, pleuritic chest pain. SLEEP: Denies morning headaches, daytime somnolence or napping. Denies difficulty falling asleep, staying asleep, waking from sleep. Denies knowledge of snoring. GASTROINTESTINAL: Denies any type of dysphagia to either liquids or solids. Denies nausea, vomiting, pyrosis, early satiety, abdominal pain, diarrhea, constipation, or changes in stool consistency or caliber. Denies coffee-ground emesis, hematemesis, hematochezia, or melanotic stools. GENITOURINARY: Denies frequency, urgency, nocturia, hematuria or incontinence (Storage/Irritative symptoms.) Low urinary stream, straining to void, urinary intermittency or hesitancy, splitting of the voiding stream, terminal dribbling. ENDOCRINOLOGIC: Denies polyuria, polydipsia, polyphagia or heat/cold intolerances. HEMATOLOGIC: Denies thrombophilia/previous clots, or coagulopathy/bleeding disorders. ONCOLOGIC: Denies personal history of malignancy. DERMATOLOGIC: Denies rashes or pruritus. PSYCHIATRIC: Denies any suicidal or homicidal ideation. Denies hallucinations. PHYSICAL EXAM GENERAL APPEARANCE: The patient is awake, alert, and oriented to self but not to place and time ,moderate respiratory distress NEUROLOGICAL: Cranial nerves II-XII grossly intact. Motor is 5/5 in bilateral upper and lower extremities proximal to distal. No sensory deficits. HEENT: Face is symmetric. Pupils are equal and reactive. Extraocular movements are intact. NECK: Supple. No JVD. No thyromegaly. No submental, submandibular, pre- /postauricular, occipital or supraclavicular lymphadenopathy. CHEST: Normal chest expansion. No Telemetry. LUNGS: tachypneic, with NC via Oxymizer CARDIOVASCULAR: Tachycardic Regular. S1 and S2 normal. No appreciable rubs, murmurs or gallops. ABDOMEN: Soft, nontender, and nondistended. There is no rebound, voluntary gua rding, or rigidity. : Deferred. Gonzalez. EXTREMITIES: Non-edematous and not cyanotic. No clubbing. Good capillary refill. SKIN: No skin breakdown. Vital Signs (last 8hr) Date Time Temp Pulse Resp B/P (MAP) Pulse Ox O2 Delivery O2 Flow Rate FiO2 06/12/25 10:26 88 20 06/12/25 10:25 88 20 N/Cannula Oximizer Hi LPM 5.0 40 06/12/25 10:15 98 17 137/44 (75) 97 06/12/25 10:00 87 22 119/44 (69) 91 06/12/25 09:45 96 27 120/51 (74) 87 06/12/25 09:30 93 24 117/53 (74) 80 06/12/25 09:15 87 23 118/43 (68) 92 06/12/25 09:00 99 22 135/49 (77) 90 06/12/25 08:45 91 23 114/47 (69) 91 06/12/25 08:30 96 23 124/43 (70) 91 06/12/25 08:15 88 21 118/49 (72) 91 06/12/25 08:00 98.2 06/12/25 08:00 98.2 92 15 120/51 (74) 92 06/12/25 08:00 97 Nasal Cannula* 5 40 06/12/25 07:45 90 19 118/47 (70) 94 06/12/25 07:30 89 22 113/44 (67) 97 06/12/25 07:07 90 23 115/42 (66) 06/12/25 06:57 85 20 N/Cannula Oximizer Hi LPM 5.0 40 06/12/25 06:57 85 20 06/12/25 06:52 99 17 121/58 (79) 99 06/12/25 06:37 84 17 107/40 (62) 91 06/12/25 06:22 191 23 92/57 (69) 81 06/12/25 06:07 174 23 103/56 (72) 73 06/12/25 05:52 168 21 114/45 (68) 78 06/12/25 05:37 174 21 95/58 (70) 92 06/12/25 05:22 164 20 104/49 (67) 76 06/12/25 05:18 188 111/71 06/12/25 05:07 168 22 101/60 (74) 73 06/12/25 04:52 173 19 111/71 (84) 85 06/12/25 04:37 166 19 99/63 (75) 95 06/12/25 04:22 167 21 113/59 (77) 99 06/12/25 04:07 161 18 115/50 (71) 96 06/12/25 04:00 98.4 06/12/25 04:00 98 Nasal Cannula* 5 40 06/12/25 03:52 152 49 111/70 (84) 96 06/12/25 03:38 181 17 94/42 (59) 84 LABS: Laboratory: Test 06/12/25 06:20 06/12/25 03:52 06/12/25 03:40 06/11/25 11:25 Range/Units Activated Partial Thromboplast Time 57.8 H 26.3-35.5 SEC Blood Gas Specimen Type Arterial Arterial Blood pH 7.425 7.350-7.450 Arterial Blood Partial Pressure CO2 27 L 32-45 mmHg Arterial Blood Partial Pressure O2 65.5 L 83.0-108.0 mmHg Arterial Blood HCO3 17.1 L 21.0-28.0 mmol/L Arterial Blood Oxygen Saturation 93.7 L 94.0-98.0 % Arterial Blood Base Excess -5.5 L -2.0-3.0 mmol/L Blood Gas Temperature 37.0 35.5-37.0 CELSIUS Blood Gas Flow-by 5.00 0.00-15.00 L/min Blood Gas Vent Mode HFNC ROOM AIR FiO2 40.0 % Blood Gas Specimen Comment ZEKE RN ,LB White Blood Count 22.4 H 4.8-10.8 K/uL Red Blood Count 3.89 L 4.00-5.50 MIL/uL Hemoglobin 9.7 L 12.0-16.0 g/dL Hematocrit 29.0 L 36-48 % Mean Corpuscular Volume 74.6 L 79-99 fL Mean Corpuscular Hemoglobin 24.9 L 27.0-33.0 pg Mean Corpuscular Hemoglobin Concent 33.4 32.0-36.0 g/dL Red Cell Distribution Width 20.6 H 11.0-15.5 % Platelet Count 226 130-400 K/uL Mean Platelet Volume 10.6 H 7.5-10.5 fL Immature Granulocyte % (Auto) 0.7 0-1 % Neutrophils (%) (Auto) 91.5 H 40.0-77.0 % Lymphocytes (%) (Auto) 3.9 L 21.0-51.0 % Monocytes (%) (Auto) 3.8 3.0-13.0 % Eosinophils (%) (Auto) 0.0 0.0-8.0 % Basophils (%) (Auto) 0.1 0.0-5.0 % Neutrophils # (Auto) 20.5 H 1.8-7.7 K/uL Lymphocytes # (Auto) 0.9 L 1.0-4.8 K/uL Monocytes # (Auto) 0.9 0.1-1.0 K/uL Eosinophils # (Auto) 0.00 0.00-0.70 K/uL Basophils # (Auto) 0.02 0.00-0.20 K/uL Absolute Immature Granulocyte (auto 0.15 0-1 K/uL Nucleated Red Blood Cells 0.3 H 0.0-0.19 % Prothrombin Time 16.1 H 9.6-11.6 SEC Prothromb Time International Ratio 1.59 H 0.85-1.15 Sodium Level 133 L 136-145 mmol/L Potassium Level 3.2 L 3.5-5.1 mmol/L Chloride Level 99 L 101-111 mmol/L Carbon Dioxide Level 24 21-32 mmol/L Blood Urea Nitrogen 49 H 7-18 mg/dL Creatinine 1.3 H 0.5-1.0 mg/dL Glomerular Filtration Rate Calc 45 >90 mL/min Random Glucose 165 H 70-105 mg/dL Lactic Acid Level 2.1 0.8-2.5 mmol/L Total Calcium 7.6 L 8.5-10.1 mg/dL Phosphorus Level 3.4 2.5-4.9 mg/dL Magnesium Level 2.90 H 1.80-2.40 mg/dL Total Bilirubin 1.6 #H 0.2-1.0 mg/dL Aspartate Amino Transf (AST/SGOT) 316 H 10-37 U/L Alanine Aminotransferase (ALT/SGPT) 797 #*H 12-78 U/L Alkaline Phosphatase 92 50-136 U/L Ammonia < 10 L 11-32 umol/L B-Type Natriuretic Peptide 3450 H 0-100 pg/mL Total Protein 5.5 L 6.0-8.3 g/dL Albumin 2.2 L 3.5-5.0 g/dL Whole Blood Glucose 150 H 70-110 MG/DL Test 06/11/25 06:10 06/11/25 05:00 06/10/25 12:39 Range/Units D-Dimer Quantitative (PE/DVT) 8317 *H 0-500 ng/mL Blood Gas Respiration Rate 14.0 min. Fibrinogen 265 180-350 mg/dL Current Medications Medications (Trade) Dose Ordered Sig/Rossy Route PRN Reason Start Time Stop Time Status Last Admin Dose Admin Acetaminophen (TYLenol 325MG TAB) 650 mg Q4H PRN PO MILD PAIN (1-3) 06/08/25 20:30 07/08/25 20:29 06/12/25 10:16 650 MG Acetaminophen (TYLenol 325MG TAB) 650 mg Q6H PRN PO TEMPERATURE GREATER THAN 101.5 06/08/25 20:30 07/08/25 20:29 Albuterol (DUOneb) 1 udvial [id number] IH 06/08/25 22:00 07/08/25 21:59 06/12/25 10:26 1 UDVIAL Amiodarone HCl 540 mg/Dextrose 300 ml @ 16.667 mls/ hr PROTOCOL IV 06/12/25 10:00 06/13/25 03:59 Amiodarone HCL/ Dextrose 100 ml @ 600 mls/hr PROTOCOL IV 06/12/25 05:00 06/12/25 06:53 DC 06/12/25 05:10 600 MLS/HR Amiodarone HCL/ Dextrose 100 ml @ 0 mls/hr PROTOCOL IV 06/12/25 07:00 06/12/25 07:01 DC Amiodarone HCL/ Dextrose 200 ml @ 33.333 mls/ hr PROTOCOL IV 06/12/25 05:00 06/12/25 06:53 DC 06/12/25 05:11 33.333 MLS/HR Budesonide (Pulmicort 0.5 Mg/2ml) 0.5 mg BIDRESP IH 06/09/25 18:00 07/09/25 17:59 06/12/25 06:57 0.5 MG Cefepime HCl (MAXipime 1 GM vial) 1 gm Q12H IVPB 06/10/25 14:00 06/10/25 14:35 DC 06/10/25 14:23 1 GM Cefepime HCl (MAXipime 1 GM vial) 1 gm Q12H9 IVPB 06/10/25 21:00 06/24/25 13:59 06/12/25 09:00 1 GM Cefepime HCl (MAXipime 1 GM vial) 1 gm Q8H IVPB 06/10/25 09:30 06/10/25 09:41 DC Dexmedetomidine/ Sodium Chloride (PRECEdex 400MCG/ 100ML-NS) 400 mcg PROTOCOL IV 06/08/25 20:00 06/11/25 17:00 DC 06/11/25 09:27 400 MCG Dorzolamide/ Timolol (Cosopt Eye Drops) 1 DROP BID OP 06/09/25 21:00 07/09/25 20:59 06/12/25 09:01 1 ML Doxycycline Hyclate 250 ml @ 125 mls/hr Q12H IV 06/08/25 23:00 06/18/25 22:59 06/11/25 23:09 125 MLS/HR Famotidine (Pepcid 20mg Vial) 20 mg DAILY IV 06/09/25 09:00 06/09/25 13:09 DC 06/09/25 08:39 20 MG Furosemide (LASix 20MG VIAL) 20 mg BID IVP 06/12/25 09:00 06/12/25 09:19 DC 06/12/25 08:57 20 MG Furosemide (LASix 40MG VIAL) 20 mg BID IVP 06/11/25 21:00 06/12/25 06:54 DC 06/11/25 21:26 20 MG Furosemide (LASix 40MG VIAL) 40 mg BID IVP 06/08/25 21:00 06/11/25 17:00 DC 06/11/25 09:32 40 MG Furosemide (LASix 40MG VIAL) 40 mg BID IVP 06/12/25 21:00 07/12/25 20:59 Heparin Sodium (Porcine) (HEParin 5,000 UNIT VIAL) *calculation based on ACTUAL B... AD PRN IV HEPARIN PROTOCOL 06/09/25 04:00 07/09/25 03:59 Heparin Sodium/ Dextrose 250 ml @ 0 mls/hr Q6H IV 06/09/25 04:00 07/09/25 03:59 06/12/25 10:14 7.4 MLS/HR Home Med (Home Medication) (Methimazole 5MG TAB) - 0.5 TAB... DAILY PO 06/10/25 09:00 07/10/25 08:59 06/12/25 09:42 1 EACH Latanoprost (Xalatan) 1 DROP HS OD 06/09/25 21:00 07/09/25 20:59 06/11/25 21:30 1 DROP Levofloxacin/ Dextrose 100 ml @ 100 mls/hr Q24H IV 06/09/25 20:00 06/08/25 22:40 DC Linezolid 300 ml @ 150 mls/hr Q12H IV 06/11/25 11:30 06/11/25 12:38 DC Linezolid 300 ml @ 150 mls/hr Q12H IV 06/11/25 14:30 06/21/25 14:29 06/12/25 02:47 150 MLS/HR Magnesium Sulfate 50 ml @ 0 mls/hr PROTOCOL PRN IV MAGNESIUM PROTOCOL 06/09/25 17:00 07/09/25 16:59 06/12/25 03:21 25 MLS/HR Methylprednisolone Sodium Succinate (Solu-medROL 40MG) 40 mg Q8H IVP 06/09/25 13:30 07/09/25 13:29 06/12/25 04:38 40 MG Metoprolol Tartrate (loprESSOR) 2.5 mg Q6H PRN IV heart rate greater than 110 06/12/25 03:30 07/12/25 03:29 Metoprolol Tartrate (loprESSOR) 25 mg BID PO 06/12/25 21:00 07/12/25 20:59 Metronidazole/ Sodium Chloride 100 ml @ 100 mls/hr Q8H6 IVPB 06/10/25 14:00 06/20/25 13:59 06/12/25 07:21 100 MLS/HR Midodrine (PROAMatine 5 MG TABLET) 5 mg TID PO 06/10/25 14:00 06/11/25 08:52 DC 06/10/25 20:08 5 MG Midodrine (PROAMatine 5 MG TABLET) 10 mg TID PO 06/11/25 09:00 07/11/25 08:59 06/12/25 09:01 10 MG Nicotine (Nicoderm) 21 mg DAILY TD 06/08/25 23:00 07/08/25 22:59 06/12/25 09:02 21 MG Norepinephrine 250 ml @ 0 mls/hr PROTOCOL IV 06/09/25 01:00 07/09/25 00:59 06/11/25 10:05 6.75 MLS/HR Olanzapine (ZyPREXA 5 mg tab) 5 mg BID PO 06/10/25 21:00 07/10/25 20:59 06/12/25 09:01 5 MG Ondansetron HCl (zoFRAN 4MG INJ) 4 mg Q6H PRN IV NAUSEA/VOMITING 06/08/25 20:30 07/08/25 20:29 Oseltamivir Phosphate (Tamiflu) 75 mg BID PO 06/09/25 21:00 06/10/25 09:08 DC 06/10/25 09:03 75 MG Pantoprazole Sodium (PROTonix 40MG INJ) 40 mg DAILY IVP 06/10/25 09:00 07/10/25 08:59 06/12/25 08:58 40 MG Pharmacy Profile Note (Pharmacy Communication) 1 each ONCE MISC 06/09/25 03:00 06/09/25 03:24 DC Pharmacy Profile Note (Pharmacy Communication) 1 each ONCE MISC 06/11/25 11:30 06/11/25 11:19 DC Phytonadione (Vitamin K 10mg/ 1ml Adult Vial) 10 mg DAILY SQ 06/11/25 09:00 06/13/25 15:00 06/12/25 09:42 10 MG Phytonadione (Vitamin K 10mg/ 1ml Adult Vial) 10 mg Q24H SQ 06/10/25 15:00 06/10/25 16:55 DC 06/10/25 15:11 10 MG Piperacillin Sod/ Tazobactam Sod (Zosyn 3.375gm+NS 50ml) 3.375 gm Q8H IV 06/08/25 23:00 06/10/25 09:08 DC 06/10/25 07:10 3.375 GM Potassium Chloride 100 ml @ 50 mls/hr AD PRN IV POTASSIUM PROTOCOL 06/09/25 17:00 06/11/25 06:10 DC 06/09/25 21:18 50 MLS/HR Potassium Chloride 100 ml @ 100 mls/hr AD PRN IV POTASSIUM PROTOCOL 06/09/25 17:00 07/09/25 16:59 06/12/25 07:21 100 MLS/HR Potassium Chloride (K-Dur/Klor-Con 20meq) 20 meq AD PRN PO POTASSIUM PROTOCOL 06/09/25 17:00 07/09/25 16:59 Potassium Chloride (KCl 10% Elixir 20meq/15ml) 20 meq AD PRN PO POTASSIUM PROTOCOL 06/09/25 17:00 07/09/25 16:59 Sodium Bicarbonate 150 meq/Sodium Chloride 1,150 ml @ 100 mls/hr [id number] IVP 06/09/25 12:00 06/09/25 12:29 DC Vancomycin HCl 250 ml @ 125 mls/hr Q24H IV 06/11/25 10:00 06/11/25 11:15 DC 06/11/25 09:31 125 MLS/HR Vancomycin HCl (Vancomycin Protocol) 1 each AD IV 06/10/25 09:30 06/11/25 11:15 DC Ziprasidone (Geodon) 10 mg Q6H PRN IM AGITATION/PSYCHOSIS 06/09/25 18:00 07/09/25 17:59 06/11/25 17:28 10 MG DIAGNOSTICS / RADIOLOGY: [ ] PATIENT: HUGO WYLIE MR#: [id number] : 1955 SEX: F AGE: 69 LOCATION: 2CH ORDER 2300 STATUS: ADM IN REPORT#: [id number] SERVICE 0600 REASON: CHF ORDERING PHYSICIAN: VY FOOTE MD PROCEDURE: CXR1VW - CHEST 1VW EXAM: CR Chest, 1 View. CLINICAL HISTORY: CHF COMPARISON: 06/11/2025 FINDINGS: The right PICC line tip is at the SVC. LUNGS: Interval improvement in the bilateral interstitial and patchy airspace opacities. PLEURAL SPACES: No pleural effusion or pneumothorax. MEDIASTINUM: Mild stable cardiomegaly with pulmonary vascular congestion. BONES: No aggressive appearing osseous lesion seen. Cervical spine fusion hardware. IMPRESSION: 1. Bilateral interstitial and patchy airspace opacities, reduced since the prior study. 2. Mild stable cardiomegaly. 3. Right PICC line tip at the SVC. /[place] DICTATED BY: DARREL GEORGE Jr., MD DATE: 06/12/251035 ELECTRONICALLY SIGNED BY: DARREL GEORGE Jr., MD DATE: 06/12/251035 ASSESSMENT: Acute hypoxemic respiratory failure POA Sepsis secondary to community acquired pneumonia-POA Aortic insufficiency due to Multiple vegetations seen on the aortic valve leafelts. (2D echo 06/09/2025) Acute CHF exacerbation with possible pulmonary edema POA Elevated troponin likely due to type 2 demand ischemia POA Acute COPD exacerbation POA Nicotine Dependence POA Acute anemia POA Acute leukocytosis POA Moderate Hyponatremia and hypochloremia POA Hyperglycemia POA Lactic acidosis POA Hyperthyroidism POA Peripheral neuropathy POA History of emphysema POA History of atrial fibrillation not on anticoagulation PLAN: Acute hypoxemic respiratory failure POA On Presentation patient's respiratory rate 30, heart rate 108, saturating 96% with2 L nasal cannula Chest x-ray showed bilateral perihilar and bibasilar airspace disease Patient weaned off BiPAP and on nasal cannula via Oxymizer, continue DuoNeb q.4 Patient was started on IV Solu-Medrol 40 mg Q8 IV, we will taper as per critical Care recommendation Critical Care on board, we will follow the recommendations. Sepsis secondary to community acquired pneumonia-POA On presentation heart rate 108, respiratory rate 30, white count 19.7, lactic acid 3.1 Chest x-ray showed bilateral perihilar and bibasilar airspace disease CT chest showed multifocal pneumonia bilateral lungs, pulmonary vascular congestion, pulmonary edema Vancomycin was stopped by Infectious Disease, patient was started on linezolid IV q.12h (day 2), continue cefepime (day 3) Continue doxycycline q.12h IV (day 5) , metronidazole q.8 IV (day 3) Patient is on norepinephrine drip at 0.05 mcg/mL /kg We will trend lactic acid Moderate Hyponatremia and hypochloremia POA On presentation sodium 122, chloride 93 Serum osmolality low at 274, urine osmolality normal, BNP 3370 Hyponatremia most likely due to fluid overload Continue IV Lasix 40 mg b.i.d. Sodium today 133 Nephrology on board, we will follow the recommendations. Aortic insufficiency due to Multiple vegetations seen on the aortic valve leafelts. (2D echo 06/09/2025) 2D echocardiogram showed LVEF 50-55%, normal left ventricular diastolic function, normal right ventricular systolic function Multiple vegetations seen on aortic valve leaflets, difficulty to assess severity of aortic insufficiency, moderate mitral valve regurgitation BNP up trending to 3450 due to LVOT from the cardiac vegetation Continue IV Lasix 40 mg b.i.d. Vancomycin was stopped by Infectious Disease, patient was started on linezolid IV q.12h (day 1), continue cefepime (day 2) Continue doxycycline q.12h IV (day 5), metronidazole q.8 IV (day 3) Blood culture showed no growth so far We will Request consultation from Infectious Disease GI Prophylaxis with famotidine 20 mg IV daily DVT prophylaxis from SCDs ATTESTATION BY PHYSICIAN I have seen and examined the patient. I reviewed the documentation, medical decision making, and treatment plan as noted by the resident provider above. I agree with the findings and plan of care. Cedrick Ahmadi MD, HARSHAVARDHA MD Jun 12, 2025 11:36
--- NOTE | 2025-06-12 12:12 | PN ---
[facility] CARDIOLOGY PROGRESS NOTE Date Patient Seen: Jun 12, 2025 Time of Visit: 12:05 Interval History: [Overnight the patient transitioned to atrial fibrillation with RVR, requiring amiodarone bolus and infusion. Current review of telemetry sinus rhythm with a heart rate in the 90s. That patients has been successfully weaned off BiPAP support. Overnight urine output 1600 mL. Successfully weaned off pressor support. Chest x-ray shows right lower lobe consolidation with mild congestion] Physical Examination: GENERAL: [No acute distress.] HEAD: [Normal with no signs of head trauma.] EYES: [PERRLA, EOMI, conjunctiva and sclera normal.] ENT: [Hearing grossly intact, normal oropharynx.] NECK: [Supple without JVD. There is no tenderness, lymphadenopathy, or masses. No thyromegaly. Normal carotid upstrokes without bruits.] LUNGS: [Decreased breath sounds bilaterally in the bases..] HEART: [Normal rate and rhythm. Normal S1 and S2 without murmurs, gallop or rub.] VASC: [Peripheral pulses +2 bilaterally.] ABD: [Bowel sounds normal, soft, nontender, no masses, no organomegaly. No audible bruits.] : [Not examined] LYMPH: [No lymphadenopathy noted.] EXT: [No clubbing, cyanosis or edema.] SKIN: [No rashes or lesions noted.] NEURO: [Awake, alert, and oriented x3. No focal sensory or strength deficits noted.] Laboratory: [ ] Hematology Labs: Test 06/12/25 03:40 Range/Units White Blood Count 22.4 H 4.8-10.8 K/uL Red Blood Count 3.89 L 4.00-5.50 MIL/uL Hemoglobin 9.7 L 12.0-16.0 g/dL Hematocrit 29.0 L 36-48 % Mean Corpuscular Volume 74.6 L 79-99 fL Mean Corpuscular Hemoglobin 24.9 L 27.0-33.0 pg Mean Corpuscular Hemoglobin Concent 33.4 32.0-36.0 g/dL Red Cell Distribution Width 20.6 H 11.0-15.5 % Platelet Count 226 130-400 K/uL Mean Platelet Volume 10.6 H 7.5-10.5 fL Immature Granulocyte % (Auto) 0.7 0-1 % Neutrophils (%) (Auto) 91.5 H 40.0-77.0 % Lymphocytes (%) (Auto) 3.9 L 21.0-51.0 % Monocytes (%) (Auto) 3.8 3.0-13.0 % Eosinophils (%) (Auto) 0.0 0.0-8.0 % Basophils (%) (Auto) 0.1 0.0-5.0 % Neutrophils # (Auto) 20.5 H 1.8-7.7 K/uL Lymphocytes # (Auto) 0.9 L 1.0-4.8 K/uL Monocytes # (Auto) 0.9 0.1-1.0 K/uL Eosinophils # (Auto) 0.00 0.00-0.70 K/uL Basophils # (Auto) 0.02 0.00-0.20 K/uL Absolute Immature Granulocyte (auto 0.15 0-1 K/uL Nucleated Red Blood Cells 0.3 H 0.0-0.19 % Chemistry Labs: Test 06/12/25 03:40 06/11/25 11:25 Range/Units Sodium Level 133 L 136-145 mmol/L Potassium Level 3.2 L 3.5-5.1 mmol/L Chloride Level 99 L 101-111 mmol/L Carbon Dioxide Level 24 21-32 mmol/L Blood Urea Nitrogen 49 H 7-18 mg/dL Creatinine 1.3 H 0.5-1.0 mg/dL Glomerular Filtration Rate Calc 45 >90 mL/min Random Glucose 165 H 70-105 mg/dL Lactic Acid Level 2.1 0.8-2.5 mmol/L Total Calcium 7.6 L 8.5-10.1 mg/dL Phosphorus Level 3.4 2.5-4.9 mg/dL Magnesium Level 2.90 H 1.80-2.40 mg/dL Total Bilirubin 1.6 #H 0.2-1.0 mg/dL Aspartate Amino Transf (AST/SGOT) 316 H 10-37 U/L Alanine Aminotransferase (ALT/SGPT) 797 #*H 12-78 U/L Alkaline Phosphatase 92 50-136 U/L Ammonia < 10 L 11-32 umol/L B-Type Natriuretic Peptide 3450 H 0-100 pg/mL Total Protein 5.5 L 6.0-8.3 g/dL Albumin 2.2 L 3.5-5.0 g/dL Whole Blood Glucose 150 H 70-110 MG/DL Coagulation Labs: Test 06/12/25 06:20 06/12/25 03:40 06/11/25 06:10 06/10/25 12:39 Range/Units Activated Partial Thromboplast Time 57.8 H 26.3-35.5 SEC Prothrombin Time 16.1 H 9.6-11.6 SEC Prothromb Time International Ratio 1.59 H 0.85-1.15 D-Dimer Quantitative (PE/DVT) 8317 *H 0-500 ng/mL Fibrinogen 265 180-350 mg/dL Diagnostics / Radiology: [Copy/Paste Echos/Imaging Report here] Impression and Plan: 1. Sepsis in the setting of multifocal pneumonia. 2. Infective endocarditis involving the aortic valve. 3. Preserved LVEF. 4. Acute delirium. ] # aortic valve endocarditis She presented with sepsis with multifocal pneumonia and was found to have aortic valve endocarditis. She underwent echocardiogram 06/09/2025 which showed an ejection fraction of 50- 55% with normal diastolic function, large right coronary cusp leaflet vegetation protruding into the LVOT, small non coronary cusp leaflet vegetation and small left coronary cusp leaflet vegetation with [id number] aortic valve regurgitation, moderate mitral valve regurgitation and trivial pericardial effusion She is currently on antibiotic therapy. Infectious Disease has been consulted for further management. No evidence of growth in blood cultures History of atrial fibrillation and CVA is documented in her chart on this admission. We are currently unable to obtain this history from the patient due to acute delirium. Successfully weaned off BiPAP and pressor support. Patient is now alert, oriented. Endorsing mild dyspnea, with no chest pain or palpitations. Overnight urine output 1600 mL. We will increase Lasix to 40 mg IV every 12 hours. Chest x-ray shows right lower lobe consolidation with mild congestion We will recommend continue to broad-spectrum antibiotics, infectious disease recommendations #atrial fibrillation Overnight the patient transitioned to atrial fibrillation with RVR, requiring amiodarone bolus and infusion Current review of telemetry shows sinus rhythm with a heart rate of 90s. Please keep on telemetry, monitor/replace electrolytes as needed Continue amiodarone infusion per protocol Continue [id number] mg every12 hours for rate control Continue heparin infusion for PPX, we will consider transitioning to Eliquis on discharge Thank you for this consult cardiology will continue to follow along Juanjo lynn MD ATTESTATION BY PHYSICIAN I have seen and examined the patient, reviewed the above documentation, participated in medical decision making, made necessary modifications, and agree with the treatment plan as documented by my mid-level provider above. MD DEREK Barajas JAMES R MD Jun 12, 2025 12:12
--- NOTE | 2025-06-12 13:23 | PN ---
[facility] PROGRESS NOTE Date Patient Seen: Jun 12, 2025 Time of Visit: 13:19 Supervising Physician: TIARRA BRASWELL MD Primary Care Physician: [Dr. Yoel Pierson] Outpatient Specialists: [ ] Inpatient Consults: [[facility] team-ICU ] PROBLEM LIST: Paroxysmal atrial fibrillation Acute hypoxic respiratory failure on admission Sepsis 2/2 community acquired pneumonia-POA Aortic valve vegetations Bacterial endocarditis with negative blood cultures Hepatic transaminitis NSTEMI-likely type II 2/2 demand ischemia from hypoxia vs. true cardiac etiology-POA- negative for chest pain or ST/T wave abnormality. HEART score 6 points=12-16.6% risk for MACE Possible new-onset CHF with exacerbation-POA Hyperlactatemia-POA Acute delirium Acute COPD exacerbation Emphysema secondary to tobacco use disorder Pulmonary edema-POA Bilateral pleural effusions-POA Moderate hyponatremia, suspected acute-POA Sleep deprivation 2/2 current illness-POA History of paroxysmal AFib Chronic nicotine disorder: [id number] HX Prior CVA Hyperthyroid disorder/Graves disease with right thyroid nodule INTERVAL HISTORY: Mrs. Jang is more awake and alert today Remains on 5 liters O2 with Oxymizer, now off high flow and BiPAP Less confused compared to yesterday She was started on Amiodarone drip due to onset of atrial fibrillation with HR in the 170's No fevers reported in the last 24 hours Awake and following commands, but remains confused to place and time No cough No congestion On modified diet, poor appetite Very weak, bedridden REVIEW OF SYSTEMS: Confused, oriented to self only PHYSICAL EXAM: GENERAL: alert, awake oriented x 3. Positive jaundice HEENT: EOMI, Sclera non icteric, dry mucosa NECK: Supple, no JVD, trachea midline LUNGS: Bilateral crackles, no wheezing HEART: Regular rate and rhythm. Normal S1 and S2, without murmurs, tachycardia ABD: Abdomen soft, nontender. Bowel sounds present EXT: No clubbing cyanosis or edema NEURO: Awake, alert and oriented to self only. Remains on Precedex Vital Signs (last 8hr) Date Time Temp Pulse Resp B/P (MAP) Pulse Ox O2 Delivery O2 Flow Rate FiO2 06/12/25 11:58 95 Nasal Cannula* 5 40 06/12/25 10:26 88 20 06/12/25 10:25 88 20 N/Cannula Oximizer Hi LPM 5.0 40 06/12/25 10:15 98 17 137/44 (75) 97 06/12/25 10:00 87 22 119/44 (69) 91 06/12/25 09:45 96 27 120/51 (74) 87 06/12/25 09:30 93 24 117/53 (74) 80 06/12/25 09:15 87 23 118/43 (68) 92 06/12/25 09:00 99 22 135/49 (77) 90 06/12/25 08:45 91 23 114/47 (69) 91 06/12/25 08:30 96 23 124/43 (70) 91 06/12/25 08:15 88 21 118/49 (72) 91 06/12/25 08:00 98.2 06/12/25 08:00 98.2 92 15 120/51 (74) 92 06/12/25 08:00 97 Nasal Cannula* 5 40 06/12/25 07:45 90 19 118/47 (70) 94 06/12/25 07:30 89 22 113/44 (67) 97 06/12/25 07:07 90 23 115/42 (66) 06/12/25 06:57 85 20 N/Cannula Oximizer Hi LPM 5.0 40 06/12/25 06:57 85 20 06/12/25 06:52 99 17 121/58 (79) 99 06/12/25 06:37 84 17 107/40 (62) 91 06/12/25 06:22 191 23 92/57 (69) 81 06/12/25 06:07 174 23 103/56 (72) 73 06/12/25 05:52 168 21 114/45 (68) 78 06/12/25 05:37 174 21 95/58 (70) 92 06/12/25 05:22 164 20 104/49 (67) 76 LABS: Hematology Labs: Test 06/12/25 03:40 Range/Units White Blood Count 22.4 H 4.8-10.8 K/uL Red Blood Count 3.89 L 4.00-5.50 MIL/uL Hemoglobin 9.7 L 12.0-16.0 g/dL Hematocrit 29.0 L 36-48 % Mean Corpuscular Volume 74.6 L 79-99 fL Mean Corpuscular Hemoglobin 24.9 L 27.0-33.0 pg Mean Corpuscular Hemoglobin Concent 33.4 32.0-36.0 g/dL Red Cell Distribution Width 20.6 H 11.0-15.5 % Platelet Count 226 130-400 K/uL Mean Platelet Volume 10.6 H 7.5-10.5 fL Immature Granulocyte % (Auto) 0.7 0-1 % Neutrophils (%) (Auto) 91.5 H 40.0-77.0 % Lymphocytes (%) (Auto) 3.9 L 21.0-51.0 % Monocytes (%) (Auto) 3.8 3.0-13.0 % Eosinophils (%) (Auto) 0.0 0.0-8.0 % Basophils (%) (Auto) 0.1 0.0-5.0 % Neutrophils # (Auto) 20.5 H 1.8-7.7 K/uL Lymphocytes # (Auto) 0.9 L 1.0-4.8 K/uL Monocytes # (Auto) 0.9 0.1-1.0 K/uL Eosinophils # (Auto) 0.00 0.00-0.70 K/uL Basophils # (Auto) 0.02 0.00-0.20 K/uL Absolute Immature Granulocyte (auto 0.15 0-1 K/uL Nucleated Red Blood Cells 0.3 H 0.0-0.19 % Chemistry Labs: Test 06/12/25 03:40 06/11/25 11:25 Range/Units Sodium Level 133 L 136-145 mmol/L Potassium Level 3.2 L 3.5-5.1 mmol/L Chloride Level 99 L 101-111 mmol/L Carbon Dioxide Level 24 21-32 mmol/L Blood Urea Nitrogen 49 H 7-18 mg/dL Creatinine 1.3 H 0.5-1.0 mg/dL Glomerular Filtration Rate Calc 45 >90 mL/min Random Glucose 165 H 70-105 mg/dL Lactic Acid Level 2.1 0.8-2.5 mmol/L Total Calcium 7.6 L 8.5-10.1 mg/dL Phosphorus Level 3.4 2.5-4.9 mg/dL Magnesium Level 2.90 H 1.80-2.40 mg/dL Total Bilirubin 1.6 #H 0.2-1.0 mg/dL Aspartate Amino Transf (AST/SGOT) 316 H 10-37 U/L Alanine Aminotransferase (ALT/SGPT) 797 #*H 12-78 U/L Alkaline Phosphatase 92 50-136 U/L Ammonia < 10 L 11-32 umol/L B-Type Natriuretic Peptide 3450 H 0-100 pg/mL Total Protein 5.5 L 6.0-8.3 g/dL Albumin 2.2 L 3.5-5.0 g/dL Whole Blood Glucose 150 H 70-110 MG/DL Coagulation Labs: Test 06/12/25 06:20 06/12/25 03:40 06/11/25 06:10 Range/Units Activated Partial Thromboplast Time 57.8 H 26.3-35.5 SEC Prothrombin Time 16.1 H 9.6-11.6 SEC Prothromb Time International Ratio 1.59 H 0.85-1.15 D-Dimer Quantitative (PE/DVT) 8317 *H 0-500 ng/mL DIAGNOSTICS / RADIOLOGY RESULTS: [ ] PLAN Continue Amiodarone protocol for Atrial Fibrillation Pending VICK Pending HIDA taper off steroids slowly continue IV antibiotics continue supplemental oxygen NEURO: Minimize central acting medications as possible. Fall Precautions. Well lighted room through the day and minimize interruptions through the night to prevent acute delirium. PULMONARY: Supplemental 02 as needed Titrate Fio2 to keep Spo2 > or = 90% DuoNebs and CPT as needed IS hourly while awake for pulmonary hygiene Out of bed to chair as tolerated VAP Bundle Vent/BIPAP Settings: [ ] Driving pressure: [ ] P Plat: [ ] Static C: [ ] Static R: [ ] P/F Ratio: [ ] CARDIOVASCULAR: Follow hemodynamics. Titrate vasopressor to keep MAP >65 or systolic blood pressure >95mmHg DRIPS: [Precedex] LINES: [ ] GI & NUTRITION: Continue nutritional support Aspirations precautions Prokinetic agents and laxatives as needed KIDNEYS & ELECTROLYTES: Strict monitoring of intake and output Daily weights Avoid nephrotoxic agents Monitor electrolytes and replace as needed Goal urine output of 30mL/hr or 0.5mL/kg/hr Urine output: [ ] Fluid Balance: [ ] ENDOCRINE: Maintain blood glucose between 100-180 at all times. Insulin sliding scale for blood glucose management INFECTIOUS DISEASE: Trend temperature. Dubois-culture if febrile. Micro: [ ] Antibiotics: [Vancomycin and Cefepime ] HEMATOLOGY & COAGULATION: Monitor H&H. Keep Hgb > 7 Transfuse 1 unit of PRBC for Hgb < 7 Transfuse 1 pack of platelets of platelets < 20, 000 Watch for any signs and symptoms of bleeding SKIN: Pressure ulcer prevention per facility protocol Rehab: PT/OT Prophylaxis: GI: [Pepcid ] DVT: [Heparin] Code Status: Full Resuscitation Disposition: [ICU] Other: Total patient care time: 35 minutes I personally scribed for TIARRA MAURER MD ([facility]) on 06/12/25 at 13:23. Electronically submitted by Mark Singh ([email or web address]). TIARRA MAURER MD Jun 12, 2025 13:23
--- NOTE | 2025-06-12 17:02 | PN ---
INFECTIOUS DISEASE PROGRESS NOTE Date of Service: Jun 12, 2025 SUBJECTIVE: This is a 69-year-old female patient who was seen and examined at bedside in room 215. Patient is awake and answering simple questions. Continues with confusion episodes. Minimal improvement on the renal function, BUN is 49 and creatinine 1.3 today. The preliminary blood culture results collected on 06/08/2025 growing Gram-positive cocci in chains 1/2, possible contaminant. We will follow up on the final results. Patient continues on linezolid, cefepime and metronidazole. PHYSICAL EXAM EYES: Anicteric. Pupils equal and reactive. HENT: No oral thrush seen, moist Oral mucosa. NECK: Supple, no JVD or thyromegaly. LUNGS: Productive cough. Oxygen support. CARDIOVASCULAR: S1, S2 regular. No murmur heard. ABDOMEN: Soft, non tender, bowel sounds present. CENTRAL NERVOUS SYSTEM: Awake, alert, oriented x1. SKIN: No rashes, no swelling. LYMPHATICS: No peripheral lymphadenopathy. MUSCULOSKELETAL: No joint swelling, erythema or tenderness. EXTREMITIES: No cyanosis or clubbing. BACK: No deformity, no pressure ulcer. GENITOURINARY: No dysuria or hematuria. Gonzalez catheter. Vital Sign (Last 12 Hours) 06/12/25 06/12/25 06/12/25 06/12/25 05:07 05:18 05:22 05:37 Pulse 168 188 164 174 Resp 22 20 21 B/P (MAP) 101/60 (74) 111/71 104/49 (67) 95/58 (70) Pulse Ox 73 76 92 06/12/25 06/12/25 06/12/25 06/12/25 05:52 06:07 06:22 06:37 Pulse 168 174 191 84 Resp 21 23 23 17 B/P (MAP) 114/45 (68) 103/56 (72) 92/57 (69) 107/40 (62) Pulse Ox 78 73 81 91 06/12/25 06/12/25 06/12/25 06/12/25 06:52 06:57 06:57 07:07 Pulse 99 85 85 90 Resp 17 20 20 23 B/P (MAP) 121/58 (79) 115/42 (66) Pulse Ox 99 O2 Delivery N/Cannula Oximizer Hi LPM O2 Flow Rate 5.0 FiO2 40 11/2906/12/25 06/12/25 06/12/25 07:30 07:45 08:00 08:00 Temp 98.2 Pulse 89 90 92 Resp 22 19 15 B/P (MAP) 113/44 (67) 118/47 (70) 120/51 (74) Pulse Ox 97 94 97 92 O2 Delivery Nasal Cannula* O2 Flow Rate 5 FiO2 40 06/12/25 06/12/25 06/12/25 06/12/25 08:00 08:15 08:30 08:45 Temp 98.2 Pulse 88 96 91 Resp 23 B/P (MAP) 118/49 (72) 124/43 (70) 114/47 (69) Pulse Ox 91 91 91 06/12/25 06/12/25 06/12/25 06/12/25 09:00 09:15 09:30 09:45 Pulse 99 87 93 96 Resp 22 27 B/P (MAP) 135/49 (77) 118/43 (68) 117/53 (74) 120/51 (74) Pulse Ox 90 92 80 87 06/12/25 06/12/25 06/12/25 06/12/25 10:00 10:15 10:25 10:26 Pulse 87 98 88 88 Resp 22 17 20 20 B/P (MAP) 119/44 (69) 137/44 (75) Pulse Ox 91 97 O2 Delivery N/Cannula Oximizer Hi LPM O2 Flow Rate 5.0 FiO2 40 06/12/25 06/12/25 06/12/25 06/12/25 10:30 10:45 11:00 11:15 Pulse 92 94 93 91 Resp 21 17 18 16 B/P (MAP) 123/53 (76) 130/55 (80) 116/49 (71) 133/54 (80) Pulse Ox 92 92 95 97 06/12/25 06/12/25 06/12/25 06/12/25 11:45 11:58 12:00 12:15 Temp 98.4 98.4 Pulse 97 98 Resp 22 23 B/P (MAP) 130/60 (83) 123/48 (73) Pulse Ox 96 95 91 O2 Delivery Nasal Cannula* O2 Flow Rate 5 FiO2 40 06/12/25 06/12/25 06/12/25 06/12/25 12:45 13:15 13:40 13:43 Pulse 103 102 111 111 Resp 16 22 22 B/P (MAP) 116/51 (72) 132/53 (79) Pulse Ox 93 92 O2 Delivery N/Cannula Oximizer Hi LPM O2 Flow Rate 8.0 FiO2 52 06/12/25 06/12/25 06/12/25 06/12/25 13:45 14:15 14:45 15:15 Pulse 114 110 102 118 Resp 24 24 24 B/P (MAP) 135/71 (92) 135/62 (86) 131/52 (78) 108/79 (89) Pulse Ox 92 92 93 90 06/12/25 06/12/25 06/12/25 06/12/25 15:45 16:00 16:00 16:15 Temp 97.9 97.9 Pulse 92 86 Resp 18 22 B/P (MAP) 131/60 (83) 111/53 (72) Pulse Ox 93 95 95 O2 Delivery N/C Oxymizer Hi LPM* O2 Flow Rate 8 FiO2 60 Intake & Output (last 24hrs) 06/11/25 06/11/25 06/12/25 15:00 23:00 07:00 Intake Total 1287.9 ml 652.6 ml 1082.7 ml Output Total 300 ml 300 ml 1500 ml Balance 987.9 ml 352.6 ml -417.3 ml LABS: Laboratory: Test 06/12/25 13:45 06/12/25 06:20 06/12/25 03:52 06/12/25 03:40 Range/Units Potassium Level 4.4 3.5-5.1 mmol/L Activated Partial Thromboplast Time 57.8 H 26.3-35.5 SEC Blood Gas Specimen Type Arterial Arterial Blood pH 7.425 7.350-7.450 Arterial Blood Partial Pressure CO2 27 L 32-45 mmHg Arterial Blood Partial Pressure O2 65.5 L 83.0-108.0 mmHg Arterial Blood HCO3 17.1 L 21.0-28.0 mmol/L Arterial Blood Oxygen Saturation 93.7 L 94.0-98.0 % Arterial Blood Base Excess -5.5 L -2.0-3.0 mmol/L Blood Gas Temperature 37.0 35.5-37.0 CELSIUS Blood Gas Flow-by 5.00 0.00-15.00 L/min Blood Gas Vent Mode HFNC ROOM AIR FiO2 40.0 % Blood Gas Specimen Comment ZEKE RN ,LB White Blood Count 22.4 H 4.8-10.8 K/uL Red Blood Count 3.89 L 4.00-5.50 MIL/uL Hemoglobin 9.7 L 12.0-16.0 g/dL Hematocrit 29.0 L 36-48 % Mean Corpuscular Volume 74.6 L 79-99 fL Mean Corpuscular Hemoglobin 24.9 L 27.0-33.0 pg Mean Corpuscular Hemoglobin Concent 33.4 32.0-36.0 g/dL Red Cell Distribution Width 20.6 H 11.0-15.5 % Platelet Count 226 130-400 K/uL Mean Platelet Volume 10.6 H 7.5-10.5 fL Immature Granulocyte % (Auto) 0.7 0-1 % Neutrophils (%) (Auto) 91.5 H 40.0-77.0 % Lymphocytes (%) (Auto) 3.9 L 21.0-51.0 % Monocytes (%) (Auto) 3.8 3.0-13.0 % Eosinophils (%) (Auto) 0.0 0.0-8.0 % Basophils (%) (Auto) 0.1 0.0-5.0 % Neutrophils # (Auto) 20.5 H 1.8-7.7 K/uL Lymphocytes # (Auto) 0.9 L 1.0-4.8 K/uL Monocytes # (Auto) 0.9 0.1-1.0 K/uL Eosinophils # (Auto) 0.00 0.00-0.70 K/uL Basophils # (Auto) 0.02 0.00-0.20 K/uL Absolute Immature Granulocyte (auto 0.15 0-1 K/uL Nucleated Red Blood Cells 0.3 H 0.0-0.19 % Prothrombin Time 16.1 H 9.6-11.6 SEC Prothromb Time International Ratio 1.59 H 0.85-1.15 Sodium Level 133 L 136-145 mmol/L Chloride Level 99 L 101-111 mmol/L Carbon Dioxide Level 24 21-32 mmol/L Blood Urea Nitrogen 49 H 7-18 mg/dL Creatinine 1.3 H 0.5-1.0 mg/dL Glomerular Filtration Rate Calc 45 >90 mL/min Random Glucose 165 H 70-105 mg/dL Lactic Acid Level 2.1 0.8-2.5 mmol/L Total Calcium 7.6 L 8.5-10.1 mg/dL Phosphorus Level 3.4 2.5-4.9 mg/dL Magnesium Level 2.90 H 1.80-2.40 mg/dL Total Bilirubin 1.6 #H 0.2-1.0 mg/dL Aspartate Amino Transf (AST/SGOT) 316 H 10-37 U/L Alanine Aminotransferase (ALT/SGPT) 797 #*H 12-78 U/L Alkaline Phosphatase 92 50-136 U/L Ammonia < 10 L 11-32 umol/L B-Type Natriuretic Peptide 3450 H 0-100 pg/mL Total Protein 5.5 L 6.0-8.3 g/dL Albumin 2.2 L 3.5-5.0 g/dL Test 06/11/25 11:25 06/11/25 06:10 06/11/25 05:00 Range/Units Whole Blood Glucose 150 H 70-110 MG/DL D-Dimer Quantitative (PE/DVT) 8317 *H 0-500 ng/mL Blood Gas Respiration Rate 14.0 min. DIAGNOSTICS / RADIOLOGY: PATIENT: HUGO WYLIE ACCT: [id number] LOC: [facility] U: [id number] AGE/SX: 69/F ROOM: [facility] RE06/08/[address]: MARY HARRIS MD : [id number] BED: 1 DIS: STATUS: ADM IN TLOC: SPEC: [id number] MEHREEN: 06/08/25 STATUS: RES REQ: [id number] RECD: 06/08/[address]: OLVIN DING SOURCE: BLOOD ENTR: 06/08/25-[address]: ARTURO GONSALVES MD SPDESC: SELF,REFERRAL ORDERED: BLOOD CULTURE COMMENTS: What is the Source? BLOOD NOTIFIED -- Procedure Result Umer Date-Time BLOOD CULT Preliminary 06/12/25 GRAM STAIN: 1+ GRAM POSITIVE COCCI IN CHAINS AEROBIC BOTTLE 1/2 SETS POSITIVE CALLED MELINDA/NURSE 06-12-25/1503/LVELA ASSESSMENT: Hypoxic respiratory failure, requiring oxygen support. Multifocal pneumonia. Aortic valve Endocarditis. Sepsis. Gram positive bacteremia, possible a contaminant. Acute renal failure. Multifactorial encephalopathy, improving. Chronic obstructive pulmonary disease exacerbation. Chronic tobacco use. Atrial fibrillation. PLAN: Continue linezolid IV. Continue cefepime. Continue doxycycline. Continue GI prophylaxis. Continue bronchodilators. Continue oxygen support. Monitor renal function. This case was reviewed and discussed with my supervising physician Dr. Boyce and the above assessment and plan was formulated and agreed upon. ATTESTATION BY PHYSICIAN I have seen and examined the patient. I reviewed the documentation, medical decision making, and treatment plan as noted by the mid-level provider above. I agree with the findings and plan of care. RIKY BOYCE MD, MIRTA L [facility] Jun 12, 2025 17:01
--- NOTE | 2025-06-12 20:13 | PN ---
FOLLOWUP PROGRESS NOTE SUBJECTIVE: This is a 69-year-old female who was initially admitted to the hospital with acute on chronic renal dysfunction. The patient with evidence of respiratory distress, on the diuretics. The patient has been weaned off the BiPAP. She has been off the pressors and she is being seen as a followup visit for all of the above. REVIEW OF SYSTEMS: GENERAL: She is feeling much improved overnight. HEENT: No change in vision. No change in hearing. CARDIOVASCULAR: There is no current chest pain or palpitations. PULMONARY: Shortness of breath is improved. GASTROINTESTINAL: She is tolerating a diet. MUSCULOSKELETAL: Complains of weakness. PHYSICAL EXAMINATION: VITAL SIGNS: Blood pressure is 137/44. Pulse is 90. GENERAL: She is a chronically ill female, elderly, lying in bed on the medical floor. HEENT: Head is atraumatic. Pupils are equal, round, and reactive to light. Oropharynx is without exudate. Nares clear. NECK: There is no JVP. There is no thyromegaly, no mass. CARDIOVASCULAR: Regular. There is no S3 or S4 gallop. LUNGS: Coarse with equal thoracic movement. ABDOMEN: Soft, nondistended, nontender. EXTREMITIES: Reveal no clubbing, no cyanosis. NEUROLOGICAL: She is awake. She is alert. LABORATORY DATA: Hemoglobin 9.7, hematocrit 29. Sodium 133, BUN 49, creatinine 1.3. IMPRESSION: * Acute on chronic renal dysfunction. * Respiratory distress. * Elevated liver function test. * Hypotension. PLAN: The patient's pulmonary symptoms have greatly improved. The patient remains on the diuretic. She will continue with midodrine for the relative hypotension. She has been weaned off of all the pressors. We will continue to monitor the chemistries closely. Electrolytes have all been aggressively repleted. The patient and family at the bedside. Multiple questions were answered. TID: [id number] RECEIPT: [id number]
[2025-06-12] MEDS: Solu-medROL 40MG VIAL IVP SCH (20:53)
[2025-06-13] VITALS (53 sets, daily range): BP systolic 117–156; BP diastolic 34–83; PULSE 74–98; RESP 6–62; TEMP 96.4–99.5; O2SAT 80–100
[2025-06-13 04:41] LABS: IMMATURE GRANULOCYTE ABSOLUTE 0.14 K/uL (0-1); NUCLEATED RED BLOOD CELLS 2.4 % (0.0-0.19); PLATELET COUNT (AUTO) 191 K/uL (130-400); RED BLOOD CELL COUNT(AUTO) 3.91 MIL/uL (4.00-5.50); RED CELL DISTRIBUTION WIDTH 20.6 % (11.0-15.5); WHITE BLOOD COUNT (AUTO) 19.2 K/uL (4.8-10.8)
[2025-06-13 04:56] LABS: CREATININE 1.5 mg/dL (0.5-1.0); GLOMERULAR FILTR. RATE CALC 38.0 mL/min (>90); GLUCOSE,RANDOM 179.0 mg/dL (70-105); SODIUM SERUM 128.0 mmol/L (136-145); UREA NITROGEN, BLOOD 54.0 mg/dL (7-18)
[2025-06-13 05:07] LABS: ASPARTATE AMINOTRANSFERASE 193.0 U/L (10-37); TOTAL PROTEIN, SERUM 5.7 g/dL (6.0-8.3)
[2025-06-13 08:59] LABS: ABG BASE EXCESS -7.3 mmol/L (-2.0-3.0); ABG HCO3 15.3 mmol/L (21.0-28.0); ABG OXYGEN SATURATION 87.5 % (94.0-98.0); ABG PCO2 25 mmHg (32-45); ABG PH 7.409 (7.350-7.450); DEVICE COMMENT LR RICHARD; PO2, ARTERIAL BG 51.3 mmHg (83.0-108.0); TEMPERATURE, CELSIUS BG 37.0 CELSIUS (35.5-37.0)
--- NOTE | 2025-06-13 09:04 | PN ---
[facility] PROGRESS NOTE Date Patient Seen: Jun 13, 2025 Time of Visit: 09:00 Interval History: [No acute events overnight. Patient's respiratory and neurological status has been improving, current review of telemetry shows sinus rhythm with a PACs, ongoing amiodarone infusion. patient denies any cardiac symptoms or anginal equivalents at this time Physical Examination: GENERAL: [No acute distress.] HEAD: [Normal with no signs of head trauma.] EYES: [PERRLA, EOMI, conjunctiva and sclera normal.] ENT: [Hearing grossly intact, normal oropharynx.] NECK: [Supple without JVD. There is no tenderness, lymphadenopathy, or masses. No thyromegaly. Normal carotid upstrokes without bruits.] LUNGS: [Decreased breath sounds bilaterally in the bases..] HEART: [Normal rate and rhythm. Normal S1 and S2 without murmurs, gallop or rub.] VASC: [Peripheral pulses +2 bilaterally.] ABD: [Bowel sounds normal, soft, nontender, no masses, no organomegaly. No audible bruits.] : [Not examined] LYMPH: [No lymphadenopathy noted.] EXT: [No clubbing, cyanosis or edema.] SKIN: [No rashes or lesions noted.] NEURO: [Awake, alert, and oriented x3. No focal sensory or strength deficits noted.] Laboratory: [ ] Hematology Labs: Test 06/13/25 04:13 Range/Units White Blood Count 19.2 H 4.8-10.8 K/uL Red Blood Count 3.91 L 4.00-5.50 MIL/uL Hemoglobin 9.6 L 12.0-16.0 g/dL Hematocrit 29.5 L 36-48 % Mean Corpuscular Volume 75.4 L 79-99 fL Mean Corpuscular Hemoglobin 24.6 L 27.0-33.0 pg Mean Corpuscular Hemoglobin Concent 32.5 32.0-36.0 g/dL Red Cell Distribution Width 20.6 H 11.0-15.5 % Platelet Count 191 130-400 K/uL Mean Platelet Volume 10.3 7.5-10.5 fL Immature Granulocyte % (Auto) 0.7 0-1 % Neutrophils (%) (Auto) 89.6 H 40.0-77.0 % Lymphocytes (%) (Auto) 4.9 L 21.0-51.0 % Monocytes (%) (Auto) 4.7 3.0-13.0 % Eosinophils (%) (Auto) 0.0 0.0-8.0 % Basophils (%) (Auto) 0.1 0.0-5.0 % Neutrophils # (Auto) 17.2 H 1.8-7.7 K/uL Lymphocytes # (Auto) 0.9 L 1.0-4.8 K/uL Monocytes # (Auto) 0.9 0.1-1.0 K/uL Eosinophils # (Auto) 0.00 0.00-0.70 K/uL Basophils # (Auto) 0.02 0.00-0.20 K/uL Absolute Immature Granulocyte (auto 0.14 0-1 K/uL Nucleated Red Blood Cells 2.4 H 0.0-0.19 % Chemistry Labs: Test 06/13/25 04:13 06/12/25 03:40 06/11/25 11:25 Range/Units Sodium Level 128 L 136-145 mmol/L Potassium Level 4.6 3.5-5.1 mmol/L Chloride Level 98 L 101-111 mmol/L Carbon Dioxide Level 15 L 21-32 mmol/L Blood Urea Nitrogen 54 H 7-18 mg/dL Creatinine 1.5 H 0.5-1.0 mg/dL Glomerular Filtration Rate Calc 38 >90 mL/min Random Glucose 179 H 70-105 mg/dL Total Calcium 7.8 L 8.5-10.1 mg/dL Total Bilirubin 1.8 H 0.2-1.0 mg/dL Aspartate Amino Transf (AST/SGOT) 193 H 10-37 U/L Alanine Aminotransferase (ALT/SGPT) 608 *H 12-78 U/L Alkaline Phosphatase 93 50-136 U/L B-Type Natriuretic Peptide 3180 H 0-100 pg/mL Total Protein 5.7 L 6.0-8.3 g/dL Albumin 2.2 L 3.5-5.0 g/dL Lactic Acid Level 2.1 0.8-2.5 mmol/L Phosphorus Level 3.4 2.5-4.9 mg/dL Magnesium Level 2.90 H 1.80-2.40 mg/dL Ammonia < 10 L 11-32 umol/L Whole Blood Glucose 150 H 70-110 MG/DL Coagulation Labs: Test 06/13/25 04:13 06/12/25 03:40 Range/Units Activated Partial Thromboplast Time 62.7 H 26.3-35.5 SEC Prothrombin Time 16.1 H 9.6-11.6 SEC Prothromb Time International Ratio 1.59 H 0.85-1.15 Diagnostics / Radiology: [Copy/Paste Echos/Imaging Report here] Impression and Plan: 1. Sepsis in the setting of multifocal pneumonia. 2. Infective endocarditis involving the aortic valve. 3. Preserved LVEF. 4. Acute delirium. ] # aortic valve endocarditis She presented with sepsis with multifocal pneumonia and was found to have aortic valve endocarditis. 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 Infectious Disease has been consulted for further management. No evidence of growth in blood cultures History of atrial fibrillation and CVA is documented in her chart on this admission. We are currently unable to obtain this history from the patient due to acute delirium. The patient respiratory neurological status has greatly improved.. Overnight urine output 2292 mL. We will continue Lasix to 40 mg IV every 12 hours. We will recommend continue to broad-spectrum antibiotics, infectious disease recommendations #atrial fibrillation The patient transitioned to atrial fibrillation with RVR the night of 06/11/2025, requiring amiodarone bolus and infusion Current review of telemetry shows sinus rhythm PACs Please keep on telemetry, monitor/replace electrolytes as needed We will discontinue amiodarone infusion and transition to oral amiodarone 200 mg every 12 hours for seven days and then continue with the amiodarone 200 mg daily thereafter Continue Lopressor 25 mg every12 hours for rate control Continue heparin infusion for PPX, we will consider transitioning to Eliquis on discharge Thank you for this consult cardiology will continue to follow along Juanjo lynn MD ATTESTATION BY PHYSICIAN I have seen and examined the patient, reviewed the above documentation, participated in medical decision making, made necessary modifications, and agree with the treatment plan as documented by my mid-level provider above. MD DEREK Barajas JAMES R MD Jun 13, 2025 09:04
[2025-06-13] MEDS: SODIUM BICARB 50MEQ 50ML VIAL IV ONE (09:11)
[2025-06-13] MEDS: LACTULOSE 20 GM/30 ML UDCUP PO ONE (09:14)
--- NOTE | 2025-06-13 11:10 | PN ---
[facility] PROGRESS NOTE Date of Service: Jun 13, 2025 Time of Service: 11:10 SUBJECTIVE: HISTORY OF PRESENT ILLNESS: This is a 69-year-old female past medical history of emphysema peripheral neuropathy, atrial fibrillation and hyperthyroidism who was brought by EMS to the ED for complaints of shortness of breaths,dry cough and generalized body weakness which started for the past 3 weeks and getting worse this past few days.Patient reports she lives alone and a current heavy cigarette smoker 1 pack/day.As per patient she has been going to her PCP every week x 3 weeks and was started on steroids prednisone and inhaler and patient also reports was admitted for having atrial fibrillation last 05/09/25 and was seen by at [facility] [place]. Patient reports has not seen a enrollment clerk.Patient complaints of chest tightness with dry cough for the past 3 weeks but has not improved and its getting worse so she decided to come to the ED .On further evaluation ,patient was asked by the undersigned if it come to appoint where she needs to be orally intubated and patient states she is okay and in the meantime she wants to try t he Bipap. Seen and examined patient in the ER awake,alert and appears very short of breath,she has a friend at bedside and helping her from time to time with medical history as patient appears anxious as well.Patient denies chest pain,palpitation,nausea,vomiting and fever. Latest vital signs temperature 98.1, heart rate 110, respiration 35, blood pressure 140/56 saturation 96 on BiPAP 40% FiO2. Labs: WBC 19 with negative left shift of neutrophils 84, hemoglobin 9, hematocrit 30, platelet count 386. Sodium 122, chloride 93, CO2 18, BUN 23, glucose 140, lactic acid 3.1 troponin 112 BNP 3370. D-dimer 3746, PT 15, INR 1.4 PTT 28. Influenza type a and B negative SARS COVID negative. Chest x-ray result revealed bilateral perihilar and bibasilar airspace disease possibly representing pulmonary edema with small bilateral pleural effusion. [id number] cardiomegaly and pulmonary vascular congestion. While in the ER patient received Solu-Medrol 125 mg IV, albuterol two unit dose via inhalation, levofloxacin 750 mg IV, Protonix 40 mg, NS 500 mL bolus, Lasix 80 mg IV and morphine 2 mg IV. Patient was started on Precedex per ICU rec ommendation. Admit patient for further medical management. 06/09/2025: The patient was seen and evaluated bedside in ICU, no family at bedside. Patient is agitated, anxious on max doses of Precedex, saturating 100% with FiO2 60 on BiPAP. Patient is currently on norepinephrine drip 0.05 mcg/mL/kg and heparin drip q.[address] chest showed no pulmonary thromboembolism, small to medium pericardial effusion, cardiomegaly, pulmonary vascular congestion, pulmonary edema and multifocal pneumonia in bilateral lung alejandro. Continue Zosyn, doxycycline, IV Lasix, Solu-Medrol IV. Morning lab showed white count 17.4, sodium 124, bicarb 14, lactic acid 3.7, troponin 178, BNP 3060, AST 1479, ALT 561. Patient has bicarb deficit of 336, we ordered sodium bicarbonate 100 mEq single dose and we will repeat bicarb this evening. Nephrology, Cardiology, critical Care on board we will continue to follow the recommendations. 06/10/2025: The patient was seen and evaluated bedside in ICU, no family at bedside. Patient is currently on Precedex, norepinephrine drip. Abdominal ultrasound showed focal edematous wall thickening of gallbladder with minimal pericholecystic fluid, recommended HIDA scan if there is persistent clinical concern for cholecystitis. Lab showed white count trending down to 17.1, lactic acid trending down to 3, AST 3143, ALT 1515. Zosyn has been discontinued by Infectious Disease, patient was started on cefepime and vancomycin. Cardiology recommended transesophageal echocardiography once the patient become more stable. 06/11/2025: The patient was seen and evaluated bedside in ICU, no family at bedside. Patient is currently on one-to-one sitter. Patient continues to be on Precedex, norepinephrine, heparin drip. Morning lab shows white count 22.3, sodium 135, potassium 3.1, BUN 52, creatinine 1.5, fibrinogen 265, lactic acid trended down to 2, AST trended down to 946, ALT trended down to 1026. Blood culture shows no growth so far. Continue IV antibiotics as recommended by Infectious Disease. 06/12/2025: Patient was evaluated bedside in room 215 and several family members were present at the bedside. Patient also has 2 on 1 sitter. Patient was awake and alert but is mildly confused. Patient is still recovering from sepsis from community-acquired pneumonia and her white count remained stable at 22.4k. Patient oxygenating well via high-flow nasal cannula Oxymizer with flow rate of 5 L. Still continues on amiodarone drip due to AFib with telemetry consistent with Afib. Patient is still pending a HIDA scan and VICK due to her respiratory status. We will continue linezolid, cefepime and doxycycline and start to taper methylprednisolone as per critical Care recommendations. 06/13/2025: Patient was seen and evaluated in room 215, no family at bedside. Patient is awake, alert, oriented x3, saturating 96 % with Oxymizer. Patient says that she is feeling better, denies any new or worsening symptoms. Cardiology recommended discontinuing amiodarone drip, started patient on amiodarone 200 mg twice daily. Labs show white count trending down to 19.2, BNP trending down to 3180, AST trending down to 193, ALT trending down to 608. We will continue linezolid, cefepime, metronidazole and doxycycline. REVIEW OF SYSTEMS CONSTITUTIONAL: Denies fevers, chills, or night sweats. No unintentional weight loss reported. NEUROLOGICAL: Denies headache, amaurosis fugax, motor weakness, sensory deficit, vertigo/spinning sensation, gait abnormalities, or tremors. ENT: No hearing loss, otalgia, otorrhea, rhinitis, rhinorrhea, hoarseness, or sore throat. CARDIOVASCULAR: Denies any exertional angina, dyspnea on exertion, orthopnea, paroxysmal nocturnal dyspnea, palpitations, life-threatening arrhythmias, claudication. PULMONARY: Complaints of shortness of breaths, dry cough and chest tightness x3 weeks Denies phlegm/sputum, hemoptysis, pleuritic chest pain. SLEEP: Denies morning headaches, daytime somnolence or napping. Denies difficulty falling asleep, staying asleep, waking from sleep. Denies knowledge of snoring. GASTROINTESTINAL: Denies any type of dysphagia to either liquids or solids. Denies nausea, vomiting, pyrosis, early satiety, abdominal pain, diarrhea, constipation, or changes in stool consistency or caliber. Denies coffee-ground emesis, hematemesis, hematochezia, or melanotic stools. GENITOURINARY: Denies frequency, urgency, nocturia, hematuria or incontinence (Storage/Irritative symptoms.) Low urinary stream, straining to void, urinary intermittency or hesitancy, splitting of the voiding stream, terminal dribbling. ENDOCRINOLOGIC: Denies polyuria, polydipsia, polyphagia or heat/cold intolerances. HEMATOLOGIC: Denies thrombophilia/previous clots, or coagulopathy/bleeding disorders. ONCOLOGIC: Denies personal history of malignancy. DERMATOLOGIC: Denies rashes or pruritus. PSYCHIATRIC: Denies any suicidal or homicidal ideation. Denies hallucinations. PHYSICAL EXAM GENERAL APPEARANCE: The patient is awake, alert, and oriented to self but not to place and time ,moderate respiratory distress NEUROLOGICAL: Cranial nerves II-XII grossly intact. Motor is 5/5 in bilateral upper and lower extremities proximal to distal. No sensory deficits. HEENT: Face is symmetric. Pupils are equal and reactive. Extraocular movements are intact. NECK: Supple. No JVD. No thyromegaly. No submental, submandibular, pre- /postauricular, occipital or supraclavicular lymphadenopathy. CHEST: Normal chest expansion. No Telemetry. LUNGS: tachypneic, with NC via Oxymizer CARDIOVASCULAR: Tachycardic Regular. S1 and S2 normal. No appreciable rubs, murmurs or gallops. ABDOMEN: Soft, nontender, and nondistended. There is no rebound, voluntary guarding, or rigidity. : Deferred. Gonzalez. EXTREMITIES: Non-edematous and not cyanotic. No clubbing. Good capillary refill. SKIN: No skin breakdown. Vital Signs (last 8hr) Date Time Temp Pulse Resp B/P (MAP) Pulse Ox O2 Delivery O2 Flow Rate FiO2 06/13/25 10:49 78 24 06/13/25 10:48 78 24 N/Cannula Oximizer Hi LPM 8.0 52 06/13/25 09:00 97.3 90 26 139/38 91 OXYMIZER 10.0 06/13/25 09:00 90 N/C Oxymizer Hi LPM* 8 60 06/13/25 08:07 87 24 145/55 90 OXYMIZER 10.0 06/13/25 08:00 95 24 135/67 90 OXYMIZER 10.0 06/13/25 07:07 89 26 146/39 90 OXYMIZER 10.0 06/13/25 06:37 84 25 145/39 94 OXYMIZER 10.0 06/13/25 06:30 98 24 06/13/25 06:21 98 24 N/Cannula Oximizer Hi LPM 8.0 52 06/13/25 06:07 88 14 142/50 83 OXYMIZER 10.0 06/13/25 05:37 78 27 137/56 81 OXYMIZER 10.0 06/13/25 05:07 87 6 142/40 84 OXYMIZER 10.0 06/13/25 04:37 82 24 131/52 83 OXYMIZER 10.0 06/13/25 04:07 75 6 121/44 85 OXYMIZER 10.0 06/13/25 04:00 90 N/C Oxymizer Hi LPM* 8 60 06/13/25 03:37 96.4 81 27 136/54 90 OXYMIZER 8.0 LABS: Laboratory: Test 06/13/25 08:57 06/13/25 04:13 06/12/25 03:40 06/11/25 11:25 Range/Units Blood Gas Specimen Type Arterial Arterial Blood pH 7.409 7.350-7.450 Arterial Blood Partial Pressure CO2 25 L 32-45 mmHg Arterial Blood Partial Pressure O2 51.3 L 83.0-108.0 mmHg Arterial Blood HCO3 15.3 L 21.0-28.0 mmol/L Arterial Blood Oxygen Saturation 87.5 L 94.0-98.0 % Arterial Blood Base Excess -7.3 L -2.0-3.0 mmol/L Blood Gas Temperature 37.0 35.5-37.0 CELSIUS Blood Gas Flow-by 8.00 0.00-15.00 L/min Blood Gas Vent Mode 8 L OXYMIZER ROOM AIR FiO2 52.0 % Blood Gas Specimen Comment LR CORINA White Blood Count 19.2 H 4.8-10.8 K/uL Red Blood Count 3.91 L 4.00-5.50 MIL/uL Hemoglobin 9.6 L 12.0-16.0 g/dL Hematocrit 29.5 L 36-48 % Mean Corpuscular Volume 75.4 L 79-99 fL Mean Corpuscular Hemoglobin 24.6 L 27.0-33.0 pg Mean Corpuscular Hemoglobin Concent 32.5 32.0-36.0 g/dL Red Cell Distribution Width 20.6 H 11.0-15.5 % Platelet Count 191 130-400 K/uL Mean Platelet Volume 10.3 7.5-10.5 fL Immature Granulocyte % (Auto) 0.7 0-1 % Neutrophils (%) (Auto) 89.6 H 40.0-77.0 % Lymphocytes (%) (Auto) 4.9 L 21.0-51.0 % Monocytes (%) (Auto) 4.7 3.0-13.0 % Eosinophils (%) (Auto) 0.0 0.0-8.0 % Basophils (%) (Auto) 0.1 0.0-5.0 % Neutrophils # (Auto) 17.2 H 1.8-7.7 K/uL Lymphocytes # (Auto) 0.9 L 1.0-4.8 K/uL Monocytes # (Auto) 0.9 0.1-1.0 K/uL Eosinophils # (Auto) 0.00 0.00-0.70 K/uL Basophils # (Auto) 0.02 0.00-0.20 K/uL Absolute Immature Granulocyte (auto 0.14 0-1 K/uL Nucleated Red Blood Cells 2.4 H 0.0-0.19 % Activated Partial Thromboplast Time 62.7 H 26.3-35.5 SEC Sodium Level 128 L 136-145 mmol/L Potassium Level 4.6 3.5-5.1 mmol/L Chloride Level 98 L 101-111 mmol/L Carbon Dioxide Level 15 L 21-32 mmol/L Blood Urea Nitrogen 54 H 7-18 mg/dL Creatinine 1.5 H 0.5-1.0 mg/dL Glomerular Filtration Rate Calc 38 >90 mL/min Random Glucose 179 H 70-105 mg/dL Total Calcium 7.8 L 8.5-10.1 mg/dL Total Bilirubin 1.8 H 0.2-1.0 mg/dL Aspartate Amino Transf (AST/SGOT) 193 H 10-37 U/L Alanine Aminotransferase (ALT/SGPT) 608 *H 12-78 U/L Alkaline Phosphatase 93 50-136 U/L B-Type Natriuretic Peptide 3180 H 0-100 pg/mL Total Protein 5.7 L 6.0-8.3 g/dL Albumin 2.2 L 3.5-5.0 g/dL Prothrombin Time 16.1 H 9.6-11.6 SEC Prothromb Time International Ratio 1.59 H 0.85-1.15 Lactic Acid Level 2.1 0.8-2.5 mmol/L Phosphorus Level 3.4 2.5-4.9 mg/dL Magnesium Level 2.90 H 1.80-2.40 mg/dL Ammonia < 10 L 11-32 umol/L Whole Blood Glucose 150 H 70-110 MG/DL Current Medications Medications (Trade) Dose Ordered Sig/Rossy Route PRN Reason Start Time Stop Time Status Last Admin Dose Admin Acetaminophen (TYLenol 325MG TAB) 650 mg Q4H PRN PO MILD PAIN (1-3) 06/08/25 20:30 07/08/25 20:29 06/12/25 10:16 650 MG Acetaminophen (TYLenol 325MG TAB) 650 mg Q6H PRN PO TEMPERATURE GREATER THAN 101.5 06/08/25 20:30 07/08/25 20:29 06/12/25 20:47 650 MG Albuterol (DUOneb) 1 udvial [id number] IH 06/08/25 22:00 07/08/25 21:59 06/13/25 10:49 1 UDVIAL Amiodarone HCl (pacERONE 200MG) 200 mg BID PO 06/13/25 21:00 07/13/25 20:59 Amiodarone HCl 540 mg/Dextrose 300 ml @ 16.667 mls/ hr PROTOCOL IV 06/12/25 10:00 06/13/25 03:59 DC 06/12/25 11:33 16.667 MLS/HR Amiodarone HCL/ Dextrose 100 ml @ 600 mls/hr PROTOCOL IV 06/12/25 05:00 06/12/25 06:53 DC 06/12/25 05:10 600 MLS/HR Amiodarone HCL/ Dextrose 100 ml @ 0 mls/hr PROTOCOL IV 06/12/25 07:00 06/12/25 07:01 DC Amiodarone HCL/ Dextrose 200 ml @ 33.333 mls/ hr PROTOCOL IV 06/12/25 05:00 06/12/25 06:53 DC 06/12/25 05:11 33.333 MLS/HR Budesonide (Pulmicort 0.5 Mg/2ml) 0.5 mg BIDRESP IH 06/09/25 18:00 07/09/25 17:59 06/13/25 06:30 0.5 MG Cefepime HCl (MAXipime 1 GM vial) 1 gm Q12H IVPB 06/10/25 14:00 06/10/25 14:35 DC 06/10/25 14:23 1 GM Cefepime HCl (MAXipime 1 GM vial) 1 gm Q12H9 IVPB 06/10/25 21:00 06/24/25 13:59 06/13/25 09:11 1 GM Cefepime HCl (MAXipime 1 GM vial) 1 gm Q8H IVPB 06/10/25 09:30 06/10/25 09:41 DC Dexmedetomidine/ Sodium Chloride (PRECEdex 400MCG/ 100ML-NS) 400 mcg PROTOCOL IV 06/08/25 20:00 06/11/25 17:00 DC 06/11/25 09:27 400 MCG Dorzolamide/ Timolol (Cosopt Eye Drops) 1 DROP BID OP 06/09/25 21:00 07/09/25 20:59 06/13/25 09:17 1 ML Doxycycline Hyclate 250 ml @ 125 mls/hr Q12H IV 06/08/25 23:00 06/18/25 22:59 06/12/25 23:12 125 MLS/HR Famotidine (Pepcid 20mg Vial) 20 mg DAILY IV 06/09/25 09:00 06/09/25 13:09 DC 06/09/25 08:39 20 MG Fluticasone Propionate (FLOnase 50 mcg/ spray 16g bottle) 1 SPRAY DAILY EN 06/12/25 15:00 07/12/25 14:59 06/13/25 09:17 1 SPRAYS Furosemide (LASix 20MG VIAL) 20 mg BID IVP 06/12/25 09:00 06/12/25 09:19 DC 06/12/25 08:57 20 MG Furosemide (LASix 40MG VIAL) 20 mg BID IVP 06/11/25 21:00 06/12/25 06:54 DC 06/11/25 21:26 20 MG Furosemide (LASix 40MG VIAL) 40 mg BID IVP 06/08/25 21:00 06/11/25 17:00 DC 06/11/25 09:32 40 MG Furosemide (LASix 40MG VIAL) 40 mg BID IVP 06/12/25 21:00 07/12/25 20:59 06/13/25 09:11 40 MG Heparin Sodium (Porcine) (HEParin 5,000 UNIT VIAL) *calculation based on ACTUAL B... AD PRN IV HEPARIN PROTOCOL 06/09/25 04:00 07/09/25 03:59 Heparin Sodium/ Dextrose 250 ml @ 0 mls/hr Q6H IV 06/09/25 04:00 07/09/25 03:59 06/12/25 10:14 7.4 MLS/HR Home Med (Home Medication) (Methimazole 5MG TAB) - 0.5 TAB... DAILY PO 06/10/25 09:00 07/10/25 08:59 06/13/25 09:17 1 EACH Lactulose (Constulose 20gm/ 30ml Udcup) 20 gm BID PRN PO CONSTIPATION 06/13/25 07:30 07/13/25 07:29 Latanoprost (Xalatan) 1 DROP HS OD 06/09/25 21:00 07/09/25 20:59 06/12/25 20:51 1 DROP Levofloxacin/ Dextrose 100 ml @ 100 mls/hr Q24H IV 06/09/25 20:00 06/08/25 22:40 DC Linezolid 300 ml @ 150 mls/hr Q12H IV 06/11/25 11:30 06/11/25 12:38 DC Linezolid 300 ml @ 150 mls/hr Q12H IV 06/11/25 14:30 06/21/25 14:29 06/13/25 02:43 150 MLS/HR Magnesium Sulfate 50 ml @ 0 mls/hr PROTOCOL PRN IV MAGNESIUM PROTOCOL 06/09/25 17:00 07/09/25 16:59 06/12/25 03:21 25 MLS/HR Methylprednisolone Sodium Succinate (Solu-medROL 40MG) 40 mg Q12H9 IVP 06/12/25 21:00 07/09/25 13:29 06/13/25 09:11 40 MG Methylprednisolone Sodium Succinate (Solu-medROL 40MG) 40 mg Q8H IVP 06/09/25 13:30 06/12/25 14:11 DC 06/12/25 13:23 40 MG Metoprolol Tartrate (loprESSOR) 2.5 mg Q6H PRN IV heart rate greater than 110 06/12/25 03:30 07/12/25 03:29 Metoprolol Tartrate (loprESSOR) 25 mg BID PO 06/12/25 21:00 07/12/25 20:59 06/13/25 09:14 25 MG Metronidazole/ Sodium Chloride 100 ml @ 100 mls/hr Q8H6 IVPB 06/10/25 14:00 06/20/25 13:59 06/13/25 06:48 100 MLS/HR Midodrine (PROAMatine 5 MG TABLET) 5 mg TID PO 06/10/25 14:00 06/11/25 08:52 DC 06/10/25 20:08 5 MG Midodrine (PROAMatine 5 MG TABLET) 10 mg TID PO 06/11/25 09:00 07/11/25 08:59 06/12/25 09:01 10 MG Nicotine (Nicoderm) 21 mg DAILY TD 06/08/25 23:00 07/08/25 22:59 06/13/25 09:14 21 MG Norepinephrine 250 ml @ 0 mls/hr PROTOCOL IV 06/09/25 01:00 07/09/25 00:59 06/11/25 10:05 6.75 MLS/HR Olanzapine (ZyPREXA 5 mg tab) 5 mg BID PO 06/10/25 21:00 07/10/25 20:59 06/13/25 09:15 5 MG Ondansetron HCl (zoFRAN 4MG INJ) 4 mg Q6H PRN IV NAUSEA/VOMITING 06/08/25 20:30 07/08/25 20:29 Oseltamivir Phosphate (Tamiflu) 75 mg BID PO 06/09/25 21:00 06/10/25 09:08 DC 06/10/25 09:03 75 MG Pantoprazole Sodium (PROTonix 40MG INJ) 40 mg DAILY IVP 06/10/25 09:00 07/10/25 08:59 06/13/25 09:11 40 MG Pharmacy Profile Note (Pharmacy Communication) 1 each ONCE MISC 06/09/25 03:00 06/09/25 03:24 DC Pharmacy Profile Note (Pharmacy Communication) 1 each ONCE MISC 06/11/25 11:30 06/11/25 11:19 DC Phytonadione (Vitamin K 10mg/ 1ml Adult Vial) 10 mg DAILY SQ 06/11/25 09:00 06/13/25 15:00 06/13/25 09:24 10 MG Phytonadione (Vitamin K 10mg/ 1ml Adult Vial) 10 mg Q24H SQ 06/10/25 15:00 06/10/25 16:55 DC 06/10/25 15:11 10 MG Piperacillin Sod/ Tazobactam Sod (Zosyn 3.375gm+NS 50ml) 3.375 gm Q8H IV 06/08/25 23:00 06/10/25 09:08 DC 06/10/25 07:10 3.375 GM Potassium Chloride 100 ml @ 50 mls/hr AD PRN IV POTASSIUM PROTOCOL 06/09/25 17:00 06/11/25 06:10 DC 06/09/25 21:18 50 MLS/HR Potassium Chloride 100 ml @ 100 mls/hr AD PRN IV POTASSIUM PROTOCOL 06/09/25 17:00 07/09/25 16:59 06/12/25 07:21 100 MLS/HR Potassium Chloride (K-Dur/Klor-Con 20meq) 20 meq AD PRN PO POTASSIUM PROTOCOL 06/09/25 17:00 07/09/25 16:59 Potassium Chloride (KCl 10% Elixir 20meq/15ml) 20 meq AD PRN PO POTASSIUM PROTOCOL 06/09/25 17:00 07/09/25 16:59 Sodium Bicarbonate 150 meq/Sodium Chloride 1,150 ml @ 100 mls/hr [id number] IVP 06/09/25 12:00 06/09/25 12:29 DC Vancomycin HCl 250 ml @ 125 mls/hr Q24H IV 06/11/25 10:00 06/11/25 11:15 DC 06/11/25 09:31 125 MLS/HR Vancomycin HCl (Vancomycin Protocol) 1 each AD IV 06/10/25 09:30 06/11/25 11:15 DC Ziprasidone (Geodon) 10 mg Q6H PRN IM AGITATION/PSYCHOSIS 06/09/25 18:00 07/09/25 17:59 06/11/25 17:28 10 MG DIAGNOSTICS / RADIOLOGY: [ ] ASSESSMENT: Acute hypoxemic respiratory failure POA Sepsis secondary to community acquired pneumonia-POA Aortic insufficiency due to Multiple vegetations seen on the aortic valve leafelts. (2D echo 06/09/2025) Acute CHF exacerbation with possible pulmonary edema POA Elevated troponin likely due to type 2 demand ischemia POA Acute COPD exacerbation POA Nicotine Dependence POA Acute anemia POA Acute leukocytosis POA Moderate Hyponatremia and hypochloremia POA Hyperglycemia POA Lactic acidosis POA Hyperthyroidism POA Peripheral neuropathy POA History of emphysema POA History of atrial fibrillation not on anticoagulation PLAN: Acute hypoxemic respiratory failure POA On Presentation patient's respiratory rate 30, heart rate 108, saturating 96% with2 L nasal cannula Chest x-ray showed bilateral perihilar and bibasilar airspace disease Patient weaned off BiPAP and on nasal cannula via Oxymizer, continue DuoNeb q.4 IV Solu-Medrol 40 mg Q8 IV has been tapered to 40 mg q.12h IV Critical Care on board, we will follow the recommendations. Sepsis secondary to community acquired pneumonia-POA On presentation heart rate 108, respiratory rate 30, white count 19.7, lactic acid 3.1 Chest x-ray showed bilateral perihilar and bibasilar airspace disease CT chest showed multifocal pneumonia bilateral lungs, pulmonary vascular congestion, pulmonary edema Vancomycin was stopped by Infectious Disease, patient was started on linezolid IV q.12h , continue cefepime Continue doxycycline q.12h IV , metronidazole q.8 IV We will trend lactic acid Moderate Hyponatremia and hypochloremia POA On presentation sodium 122, chloride 93 Serum osmolality low at 274, urine osmolality normal, BNP 3370 Hyponatremia most likely due to fluid overload Continue IV Lasix 40 mg b.i.d. Sodium today 128 Nephrology on board, we will follow the recommendations. Aortic insufficiency due to Multiple vegetations seen on the aortic valve leafelts. (2D echo 06/09/2025) 2D echocardiogram showed LVEF 50-55%, normal left ventricular diastolic function, normal right ventricular systolic function Multiple vegetations seen on aortic valve leaflets, difficulty to assess severity of aortic insufficiency, moderate mitral valve regurgitation BNP trended down to 3180 Continue IV Lasix 40 mg b.i.d. Vancomycin was stopped by Infectious Disease, patient was started on linezolid IV q.12h , continue cefepime Continue doxycycline q.12h IV, metronidazole q.8 IV Blood culture showed no growth so far We will Request consultation from Infectious Disease GI Prophylaxis with famotidine 20 mg IV daily DVT prophylaxis from SCDs ATTESTATION BY PHYSICIAN I have seen and examined the patient. I reviewed the documentation, medical decision making, and treatment plan as noted by the resident provider above. I agree with the findings and plan of care. Cedrick Ahmadi MD, ADIL SHAH QUADRI MD Jun 13, 2025 11:10
[2025-06-13] MEDS ORDERED: SODIUM BICARBONATE 650 MG TAB PO SCH (11:30)
--- NOTE | 2025-06-13 12:10 | PN ---
[facility] PROGRESS NOTE Date Patient Seen: Jun 13, 2025 Time of Visit: 12:04 Supervising Physician: TIARRA BRASWELL MD Primary Care Physician: [Dr. Yoel Pierson] Outpatient Specialists: [ ] Inpatient Consults: [[facility]-ICU ] PROBLEM LIST: Paroxysmal atrial fibrillation Respiratory Alkalosis Metabolic acidosis Acute hypoxic respiratory failure on admission Sepsis 2/2 community acquired pneumonia-POA Aortic valve vegetations Bacterial endocarditis with negative blood cultures Hepatic transaminitis NSTEMI-likely type II 2/2 demand ischemia from hypoxia vs. true cardiac etiology-POA- negative for chest pain or ST/T wave abnormality. HEART score 6 points=12-16.6% risk for MACE Possible new-onset CHF with exacerbation-POA Hyperlactatemia-POA Acute delirium Acute COPD exacerbation Emphysema secondary to tobacco use disorder Pulmonary edema-POA Bilateral pleural effusions-POA Moderate hyponatremia, suspected acute-POA Sleep deprivation 2/2 current illness-POA History of paroxysmal AFib Chronic nicotine disorder: [id number] HX Prior CVA Hyperthyroid disorder/Graves disease with right thyroid nodule INTERVAL HISTORY: Patient is currently requiring 50% FiO2 however her O2 saturation remained in the low 90s Her ABG was reviewed at bedside showing pH of 7.4 pCO2 24.7 PO2 51.3 and H CO3 15.3 consistent with high anion and non-anion gap acidosis She is now off pressors, she is more awake and more alert oriented to self and place The patient is now off Precedex drip No fevers reported No chills, no report of diarrhea and the patient is voiding without urgency, dysuria. Negative For hematuria REVIEW OF SYSTEMS: More awake today, able to answer questions and oriented to self and place. No other major complaints reported by the patient herself and most of the information is obtained from nursing staff and medical records at bedside. PHYSICAL EXAM: GENERAL: Awake, alert and oriented to time and place. Patient oriented to self and appears to be less jaundice. HEENT: EOMI, Sclera non icteric, dry mucosa NECK: Supple, no JVD, trachea midline LUNGS: Grossly clear, decreased air entry without wheezing HEART: Regular rate and rhythm. Normal S1 and S2, without murmurs, tachycardia ABD: Abdomen soft, nontender. Bowel sounds present EXT: No clubbing cyanosis or edema NEURO: Awake, alert. Off Precedex drip Vital Signs (last 8hr) Date Time Temp Pulse Resp B/P (MAP) Pulse Ox O2 Delivery O2 Flow Rate FiO2 06/13/25 10:49 78 24 06/13/25 10:48 78 24 N/Cannula Oximizer Hi LPM 8.0 52 06/13/25 09:00 97.3 90 26 139/38 91 OXYMIZER 10.0 06/13/25 09:00 90 N/C Oxymizer Hi LPM* 8 60 06/13/25 08:07 87 24 145/55 90 OXYMIZER 10.0 06/13/25 08:00 95 24 135/67 90 OXYMIZER 10.0 06/13/25 07:07 89 26 146/39 90 OXYMIZER 10.0 06/13/25 06:37 84 25 145/39 94 OXYMIZER 10.0 06/13/25 06:30 98 24 06/13/25 06:21 98 24 N/Cannula Oximizer Hi LPM 8.0 52 06/13/25 06:07 88 14 142/50 83 OXYMIZER 10.0 06/13/25 05:37 78 27 137/56 81 OXYMIZER 10.0 06/13/25 05:07 87 6 142/40 84 OXYMIZER 10.0 06/13/25 04:37 82 24 131/52 83 OXYMIZER 10.0 06/13/25 04:07 75 6 121/44 85 OXYMIZER 10.0 LABS: Hematology Labs: Test 06/13/25 04:13 Range/Units White Blood Count 19.2 H 4.8-10.8 K/uL Red Blood Count 3.91 L 4.00-5.50 MIL/uL Hemoglobin 9.6 L 12.0-16.0 g/dL Hematocrit 29.5 L 36-48 % Mean Corpuscular Volume 75.4 L 79-99 fL Mean Corpuscular Hemoglobin 24.6 L 27.0-33.0 pg Mean Corpuscular Hemoglobin Concent 32.5 32.0-36.0 g/dL Red Cell Distribution Width 20.6 H 11.0-15.5 % Platelet Count 191 130-400 K/uL Mean Platelet Volume 10.3 7.5-10.5 fL Immature Granulocyte % (Auto) 0.7 0-1 % Neutrophils (%) (Auto) 89.6 H 40.0-77.0 % Lymphocytes (%) (Auto) 4.9 L 21.0-51.0 % Monocytes (%) (Auto) 4.7 3.0-13.0 % Eosinophils (%) (Auto) 0.0 0.0-8.0 % Basophils (%) (Auto) 0.1 0.0-5.0 % Neutrophils # (Auto) 17.2 H 1.8-7.7 K/uL Lymphocytes # (Auto) 0.9 L 1.0-4.8 K/uL Monocytes # (Auto) 0.9 0.1-1.0 K/uL Eosinophils # (Auto) 0.00 0.00-0.70 K/uL Basophils # (Auto) 0.02 0.00-0.20 K/uL Absolute Immature Granulocyte (auto 0.14 0-1 K/uL Nucleated Red Blood Cells 2.4 H 0.0-0.19 % Chemistry Labs: Test 06/13/25 04:13 06/12/25 03:40 Range/Units Sodium Level 128 L 136-145 mmol/L Potassium Level 4.6 3.5-5.1 mmol/L Chloride Level 98 L 101-111 mmol/L Carbon Dioxide Level 15 L 21-32 mmol/L Blood Urea Nitrogen 54 H 7-18 mg/dL Creatinine 1.5 H 0.5-1.0 mg/dL Glomerular Filtration Rate Calc 38 >90 mL/min Random Glucose 179 H 70-105 mg/dL Total Calcium 7.8 L 8.5-10.1 mg/dL Total Bilirubin 1.8 H 0.2-1.0 mg/dL Aspartate Amino Transf (AST/SGOT) 193 H 10-37 U/L Alanine Aminotransferase (ALT/SGPT) 608 *H 12-78 U/L Alkaline Phosphatase 93 50-136 U/L B-Type Natriuretic Peptide 3180 H 0-100 pg/mL Total Protein 5.7 L 6.0-8.3 g/dL Albumin 2.2 L 3.5-5.0 g/dL Lactic Acid Level 2.1 0.8-2.5 mmol/L Phosphorus Level 3.4 2.5-4.9 mg/dL Magnesium Level 2.90 H 1.80-2.40 mg/dL Ammonia < 10 L 11-32 umol/L Coagulation Labs: Test 06/13/25 04:13 06/12/25 03:40 Range/Units Activated Partial Thromboplast Time 62.7 H 26.3-35.5 SEC Prothrombin Time 16.1 H 9.6-11.6 SEC Prothromb Time International Ratio 1.59 H 0.85-1.15 DIAGNOSTICS / RADIOLOGY RESULTS: [ ] PLAN Still pending VICK Still pending HIDA scan Change to high-flow oxygen 40 L with 50% FiO2 Obtain ketones Obtain lactic acid level Keep off pressors and start patient on two tablets of bicarbonate every 12 hours Continue IV fluids Replace electrolytes as per protocol NEURO: Minimize central acting medications as possible. Fall Precautions. Well lighted room through the day and minimize interruptions through the night to prevent acute delirium. PULMONARY: Supplemental 02 as needed Titrate Fio2 to keep Spo2 > or = 90% DuoNebs and CPT as needed IS hourly while awake for pulmonary hygiene Out of bed to chair as tolerated VAP Bundle Vent/BIPAP Settings: [ ] Driving pressure: [ ] P Plat: [ ] Static C: [ ] Static R: [ ] P/F Ratio: [ ] CARDIOVASCULAR: Follow hemodynamics. Titrate vasopressor to keep MAP >65 or systolic blood pressure >95mmHg DRIPS: [Precedex] LINES: [ ] GI & NUTRITION: Continue nutritional support Aspirations precautions Prokinetic agents and laxatives as needed KIDNEYS & ELECTROLYTES: Strict monitoring of intake and output Daily weights Avoid nephrotoxic agents Monitor electrolytes and replace as needed Goal urine output of 30mL/hr or 0.5mL/kg/hr Urine output: [ ] Fluid Balance: [ ] ENDOCRINE: Maintain blood glucose between 100-180 at all times. Insulin sliding scale for blood glucose management INFECTIOUS DISEASE: Trend temperature. Dubois-culture if febrile. Micro: [ ] Antibiotics: [Vancomycin and Cefepime ] HEMATOLOGY & COAGULATION: Monitor H&H. Keep Hgb > 7 Transfuse 1 unit of PRBC for Hgb < 7 Transfuse 1 pack of platelets of platelets < 20, 000 Watch for any signs and symptoms of bleeding SKIN: Pressure ulcer prevention per facility protocol Rehab: PT/OT Prophylaxis: GI: [Pepcid ] DVT: [Heparin] Code Status: Full Resuscitation Disposition: [ICU] Other: Total patient care time: 35 minutes I personally scribed for TIARRA MAURER MD ([email or web address]) on 06/13/25 at 12:10. Electronically submitted by Mark Singh ([email or web address]). TIARRA MAURER MD Jun 13, 2025 12:10
[2025-06-13 15:26] LABS: ABG BASE EXCESS -3.6 mmol/L (-2.0-3.0); ABG HCO3 18.8 mmol/L (21.0-28.0); ABG OXYGEN SATURATION 77.2 % (94.0-98.0); ABG PCO2 28 mmHg (32-45); ABG PH 7.447 (7.350-7.450); DEVICE COMMENT LR RICHARD; TEMPERATURE, CELSIUS BG 37.0 CELSIUS (35.5-37.0); VENT MODE, BG HFNC (ROOM AIR)
--- NOTE | 2025-06-13 15:39 | PN ---
FOLLOWUP PROGRESS NOTE SUBJECTIVE: A 69-year-old female, she presented to the hospital and was found to have endocarditis. The patient with significant respiratory distress. Remains on the diuretics. The patient with hypotension and shock liver, which has also improved. She has had acute on chronic renal failure in the hospital. Creatinine has been elevated and the patient is being seen as a followup visit for all the above. She remains on the midodrine for the hypotension. REVIEW OF SYSTEMS: She is feeling improved. HEENT: No change in vision. No change in hearing. CARDIOVASCULAR: There is no current chest pain, palpitations. PULMONARY: Shortness of breath is improved. GASTROINTESTINAL: The patient is tolerating a diet. MUSCULOSKELETAL: Complains of weakness. PHYSICAL EXAMINATION: VITAL SIGNS: Blood pressure 138/78. Pulse 90s. He is afebrile. GENERAL: Chronically ill female. Elderly lying in bed on the medical floor. HEENT: Head is atraumatic. Pupils are equal, round and reactive to light. Oropharynx is without exudate. Nares are clear. NECK: There is no JVP. There is no thyromegaly, no mass. CARDIOVASCULAR: Regular. There is no S3 or S4 gallop. LUNGS: Coarse with equal thoracic movement. ABDOMEN: Soft, nondistended, and nontender. EXTREMITIES: Extremities reveal no clubbing or cyanosis. NEUROLOGICAL: She is awake. She is alert. LABORATORY DATA: Sodium 128, potassium 4.6, BUN 54, creatinine is 1.5, hemoglobin 9.6, and hematocrit 29. IMPRESSION: [id number] renal failure. Endocarditis. Hypotension. Electrolyte abnormalities. PLAN: The patient's creatinine is noted. She continues on midodrine for the relative hypotension. The patient with evidence of endocarditis on echocardiogram remains on the broad spectrum antibiotics. We will continue to monitor the patient closely. The patient is encouraged with fluid restriction for the hyponatremia. TID: [id number] RECEIPT: [id number]
--- NOTE | 2025-06-13 15:43 | NUR ---
PATIENT PLACED ON CPAP BY RT PATIENT ON CPAP OF 10 AND 60% FIO2 DUE TO ABNORMAL ABG PER MD JERNIGAN. PATIENT SATS INCREASED TO 97% AND IS TOLERATING CPAP AT THIS TIME. NURSE TO CONTINUE AND MONITOR OXYGENATION. PATIENT IS AOX3, CALL LIGHT WITHIN REACH.
[2025-06-13 15:55] LABS: PO2, ARTERIAL BG < 45.0 mmHg (83.0-108.0)
--- NOTE | 2025-06-13 16:04 | NUR ---
CPAP REMOVED BY PATIENT. Patient removing cpap and says she can't breath. states "I dont want this on". Respiratory education provided by RN on the importance of having the CPAP on due to helping her oxygenation . Patient states " i dont care". She remains AOX3, no distress noted other than low SPO2 sats in the mid 80's. MD notified. Will continue to monitor patients respiratory status. Call light within reach and placed near the nurses station. Sitter 1:1 remains at bedside.
[2025-06-13] MEDS: SODIUM BICARBONATE 650 MG TAB PO SCH (20:46)
--- NOTE | 2025-06-13 21:08 | NUR ---
Pt continues to refuse CPAP. Explain the benefits of CPAP for oxygenation. Pt states that she does not want it and is not short of breath. Offer to switch to HFNC. Pt refuse. Pt on 10LNC OXY. Pt s
[2025-06-13 21:10] LABS: ABG BASE EXCESS -3.3 mmol/L (-2.0-3.0); ABG HCO3 18.3 mmol/L (21.0-28.0); ABG OXYGEN SATURATION 82.6 % (94.0-98.0); ABG PCO2 25 mmHg (32-45); ABG PH 7.481 (7.350-7.450); DEVICE COMMENT RN; PO2, ARTERIAL BG < 45.0 mmHg (83.0-108.0); TEMPERATURE, CELSIUS BG 37.0 CELSIUS (35.5-37.0)
--- NOTE | 2025-06-13 22:37 | PN ---
INFECTIOUS DISEASE FOLLOWUP NOTE DATE OF SERVICE: 06/13/2025 SUBJECTIVE: The patient is seen and examined at bedside today. No fever. No chills. No nausea or vomiting. The patient remained in ICU. She is now awake, but still intermittently confused. No diarrhea. No abdominal pain. No nausea. No vomiting. No headache. PHYSICAL EXAMINATION: VITAL SIGNS: Temperature 99.4. EYES: No icterus. Pupils equal and reactive. HENT: No oral thrush seen. Moist oral mucosa. NECK: Supple. No JVD or thyromegaly. LUNGS: Good air entry. No rales. No rhonchi. CARDIOVASCULAR: S1 and S2, regular. No murmur heard. ABDOMEN: Soft, nontender. Bowel sound is present. CENTRAL NERVOUS SYSTEM: Awake, alert, oriented x 3. No focal deficits. SKIN: No rashes, no itchiness. LYMPHATIC: No peripheral lymphadenopathy. BACK: No deformity, no pressure ulcer. MUSCULOSKELETAL: No joint swelling. No erythema or tenderness. No rhonchi. No peripheral neuropathy. ASSESSMENT: A 69-year-old female with multiple problems which include: * Pneumonia. * Endocarditis. * Respiratory failure. * History of chronic tobacco. * Encephalopathy. PLAN: * Continue cefepime. * Continue linezolid. * Continue sulfasalazine. * Continue doxycycline. * Monitor electrolytes. * The patient will be followed closely. TID: [id number] RECEIPT: [id number] MTD
[2025-06-14] VITALS (30 sets, daily range): BP systolic 119–141; BP diastolic 41–80; PULSE 70–85; RESP 17–25; TEMP 97–97.9; O2SAT 86–99
[2025-06-14 04:53] LABS: PLATELET COUNT (AUTO) 188 K/uL (130-400); RED BLOOD CELL COUNT(AUTO) 4.13 MIL/uL (4.00-5.50); RED CELL DISTRIBUTION WIDTH 20.4 % (11.0-15.5); WHITE BLOOD COUNT (AUTO) 15.1 K/uL (4.8-10.8)
[2025-06-14 05:19] LABS: ASPARTATE AMINOTRANSFERASE 105.0 U/L (10-37); CREATININE 1.7 mg/dL (0.5-1.0); GLOMERULAR FILTR. RATE CALC 32.0 mL/min (>90); GLUCOSE,RANDOM 208.0 mg/dL (70-105); SODIUM SERUM 137.0 mmol/L (136-145); TOTAL PROTEIN, SERUM 5.4 g/dL (6.0-8.3); UREA NITROGEN, BLOOD 55.0 mg/dL (7-18)
[2025-06-14 05:31] LABS: MONOCYTES % (MANUAL) 3 % (2-9); NUCLEATED RED BLOOD CELLS 9.1 % (0.0-0.19); REACTIVE LYMPHOCYTES 1 % (0-0); SEGMENTED NEUTROPHILS % 96 % (40-70)
[2025-06-14 05:32] LABS: MAN.DIFF COMMENT-IMPRESSION MANUAL DIFFERENTIAL; PLATELET MORPHOLOGY COMMENT ADEQUATE
--- NOTE | 2025-06-14 08:37 | PN ---
1. Sepsis in the setting of multifocal pneumonia. 2. Infective endocarditis involving the aortic valve. 3. Preserved LVEF. 4. Acute delirium. 5. Aortic insufficiency 6. Mitral regurgitation 7. Atrial fibrillation, paroxysmal Mental status questionable but the patient is conversant today. Does not seem to understand that she has endocarditis. Very pleasant personality, does seem to want to interact. No focal motor deficits obvious, moves all four extremities and facial expressions are symmetric. Neck veins are not distended and carotid volume is normal. Chest is clear. Holosystolic murmur heard at the apex grade 1/6, 2/6 aortic outflow and early diastolic decrescendo murmur heard just left of the sternum. No splinter hemorrhages or obvious embolic signs. Currently in normal sinus rhythm, had been treated for atrial fibrillation. Impression and plan: Hemodynamically stable but critically ill with sepsis, aortic valve endocarditis, paroxysmal atrial fibrillation and delirium. Continue current supportive care and close observation of hemodynamic status. Vitals/Labs Vital Signs Date Time Temp Pulse Resp B/P (MAP) Pulse Ox O2 Delivery O2 Flow Rate FiO2 06/14/25 06:45 83 22 06/14/25 05:37 138/56 87 OXYMIZER 12.0 06/14/25 04:19 99 06/14/25 03:11 97.0 Laboratory Tests 06/14/25 04:30 Medications Current Medications Methylprednisolone Sodium Succinate 125 mg ONCE ONCE IVP Last administered on 06/08/25at 17:19; Start 06/08/25 at 17:00; Stop 06/08/25 at 17:16; Status DC Albuterol 2 udvial ONCE ONCE IH Last administered on 06/08/25at 17:41; Start 06/08/25 at 17:00; Stop 06/08/25 at 17:16; Status DC Methylprednisolone Sodium Succinate 125 mg STK-MED ONCE .ROUTE; Start 06/08/25 at 17:12; Stop 06/08/25 at 17:12; Status DC Levofloxacin/ Dextrose 750 mg ONCE ONCE IV Last administered on 06/08/25at 19:26; Start 06/08/25 at 17:30; Stop 06/08/25 at 17:34; Status DC Sodium Chloride 1,000 ml @ 0 mls/hr ONCE ONCE IV; Start 06/08/25 at 18:00; Stop 06/08/25 at 17:59; Status DC Sodium Chloride 500 ml @ 0 mls/hr ONCE ONCE IV Last administered on 06/08/25at 18:05; Start 06/08/25 at 18:00; Stop 06/08/25 at 18:03; Status DC Furosemide 80 mg ONCE ONCE IVP; Start 06/08/25 at 18:00; Stop 06/08/25 at 18:01; Status Cancel Pantoprazole Sodium 40 mg ONCE ONCE PO; Start 06/08/25 at 18:30; Stop 06/08/25 at 18:31; Status DC Furosemide 40 mg STK-MED ONCE .ROUTE; Start 06/08/25 at 19:29; Stop 06/08/25 at 19:30; Status DC Furosemide 80 mg ONCE ONCE IVP; Start 06/08/25 at 20:00; Stop 06/08/25 at 20:01; Status DC Furosemide 80 mg ONCE ONCE IVP; Start 06/08/25 at 20:00; Stop 06/08/25 at 19:54; Status DC Morphine Sulfate 2 mg ONCE ONCE IVP; Start 06/08/25 at 20:00; Stop 06/08/25 at 20:05; Status DC Dexmedetomidine/ Sodium Chloride 400 mcg PROTOCOL IV Last administered on 06/11/25at 09:27; Start 06/08/25 at 20:00; Stop 06/11/25 at 17:00; Status DC Dexmedetomidine/ Sodium Chloride 400 mcg STK-MED ONCE IV; Start 06/08/25 at 20:02; Stop 06/08/25 at 20:02; Status DC Acetaminophen 650 mg Q6H PRN PO Last administered on 06/12/25at 20:47; Start 06/08/25 at 20:30; Stop 07/08/25 at 20:29 Acetaminophen 650 mg Q4H PRN PO Last administered on 06/12/25at 10:16; Start 06/08/25 at 20:30; Stop 07/08/25 at 20:29 Ondansetron HCl 4 mg Q6H PRN IV; Start 06/08/25 at 20:30; Stop 07/08/25 at 20:29 Albuterol 1 udvial [id number] IH Last administered on 06/14/25at 06:45; Start 06/08/25 at 22:00; Stop 07/08/25 at 21:59 Furosemide 40 mg BID IVP Last administered on 06/11/25at 09:32; Start 06/08/25 at 21:00; Stop 06/11/25 at 17:00; Status DC Famotidine 20 mg DAILY IV Last administered on 06/09/25at 08:39; Start 06/09/25 at 09:00; Stop 06/09/25 at 13:09; Status DC Levofloxacin/ Dextrose 100 ml @ 100 mls/hr Q24H IV; Start 06/09/25 at 20:00; Stop 06/08/25 at 22:40; Status DC Morphine Sulfate 1 mg ONCE ONCE IVP Last administered on 06/08/25at 20:36; Start 06/08/25 at 20:30; Stop 06/08/25 at 20:31; Status DC Furosemide 40 mg ONCE ONCE IV Last administered on 06/08/25at 21:18; Start 06/08/25 at 21:00; Stop 06/08/25 at 21:01; Status DC Doxycycline Hyclate 250 ml @ 125 mls/hr Q12H IV Last administered on 06/13/25at 23:44; Start 06/08/25 at 23:00; Stop 06/18/25 at 22:59 Piperacillin Sod/ Tazobactam Sod 3.375 gm Q8H IV Last administered on 06/10/25at 07:10; Start 06/08/25 at 23:00; Stop 06/10/25 at 09:08; Status DC Nicotine 21 mg DAILY TD Last administered on 06/13/25at 09:14; Start 06/08/25 at 23:00; Stop 07/08/25 at 22:59 Iohexol 50 ml STK-MED ONCE IV; Start 06/08/25 at 23:38; Stop 06/08/25 at 23:38; Status DC Norepinephrine 250 ml @ As Directed STK-MED ONCE IV; Start 06/09/25 at 00:30; Stop 06/09/25 at 00:31; Status DC Norepinephrine 250 ml @ 0 mls/hr PROTOCOL IV Last administered on 06/11/25at 10:05; Start 06/09/25 at 01:00; Stop 07/09/25 at 00:59 Pharmacy Profile Note 1 each ONCE MISC; Start 06/09/25 at 03:00; Stop 06/09/25 at 03:24; Status DC Heparin Sodium (Porcine) *calculation based on ACTUAL B... AD PRN IV; Start 06/09/25 at 04:00; Stop 07/09/25 at 03:59 Heparin Sodium/ Dextrose 250 ml @ 0 mls/hr Q6H IV Last administered on 06/13/25at 15:40; Start 06/09/25 at 04:00; Stop 07/09/25 at 03:59 Heparin Sodium (Porcine) 5,000 unit ONCE ONCE IV Last administered on 06/09/25at 05:30; Start 06/09/25 at 05:30; Stop 06/09/25 at 05:31; Status DC Sodium Bicarbonate 150 meq/Sodium Chloride 1,150 ml @ 100 mls/hr [id number] IVP; Start 06/09/25 at 12:00; Stop 06/09/25 at 12:29; Status DC Ziprasidone 10 mg Q6H ONCE IM Last administered on 06/09/25at 12:24; Start 06/09/25 at 12:21; Stop 06/09/25 at 12:23; Status DC Ziprasidone 20 mg STK-MED ONCE IM; Start 06/09/25 at 12:22; Stop 06/09/25 at 12:22; Status DC Sodium Bicarbonate 100 meq ONCE ONCE IV Last administered on 06/09/25at 13:39; Start 06/09/25 at 12:30; Stop 06/09/25 at 12:36; Status DC Oseltamivir Phosphate 75 mg BID PO Last administered on 06/10/25at 09:03; Start 06/09/25 at 21:00; Stop 06/10/25 at 09:08; Status DC Ziprasidone 10 mg Q6H PRN IM Last administered on 06/11/25at 17:28; Start 06/09/25 at 18:00; Stop 07/09/25 at 17:59 Dorzolamide/ Timolol 1 DROP BID OP Last administered on 06/13/25at 20:56; Start 06/09/25 at 21:00; Stop 07/09/25 at 20:59 Latanoprost 1 DROP HS OD Last administered on 06/13/25at 20:57; Start 06/09/25 at 21:00; Stop 07/09/25 at 20:59 Home Med (Methimazole 5MG TAB) - 0.5 TAB... DAILY PO Last administered on 06/13/25at 09:17; Start 06/10/25 at 09:00; Stop 07/10/25 at 08:59 Methylprednisolone Sodium Succinate 40 mg Q8H IVP Last administered on 06/12/25at 13:23; Start 06/09/25 at 13:30; Stop 06/12/25 at 14:11; Status DC Budesonide 0.5 mg BIDRESP IH Last administered on 06/14/25at 06:45; Start 06/09/25 at 18:00; Stop 07/09/25 at 17:59 Pantoprazole Sodium 40 mg DAILY IVP Last administered on 06/13/25at 09:11; Start 06/10/25 at 09:00; Stop 07/10/25 at 08:59 Potassium Chloride 100 ml @ 100 mls/hr AD PRN IV Last administered on 06/14/25at 05:36; Start 06/09/25 at 17:00; Stop 07/09/25 at 16:59 Potassium Chloride 20 meq AD PRN PO; Start 06/09/25 at 17:00; Stop 07/09/25 at 16:59 Potassium Chloride 20 meq AD PRN PO; Start 06/09/25 at 17:00; Stop 07/09/25 at 16:59 Potassium Chloride 100 ml @ 50 mls/hr AD PRN IV Last administered on 06/09/25at 21:18; Start 06/09/25 at 17:00; Stop 06/11/25 at 06:10; Status DC Magnesium Sulfate 50 ml @ 0 mls/hr PROTOCOL PRN IV Last administered on 06/12/25at 03:21; Start 06/09/25 at 17:00; Stop 07/09/25 at 16:59 Sodium Bicarbonate 50 meq ONCE ONCE IV Last administered on 06/10/25at 09:03; Start 06/10/25 at 09:00; Stop 06/10/25 at 09:01; Status DC Cefepime HCl 1 gm Q8H IVPB; Start 06/10/25 at 09:30; Stop 06/10/25 at 09:41; Status DC Vancomycin HCl 1 each AD IV; Start 06/10/25 at 09:30; Stop 06/11/25 at 11:15; Status DC Vancomycin HCl 250 ml @ 125 mls/hr ONCE ONCE IV Last administered on 06/10/25at 09:41; Start 06/10/25 at 10:00; Stop 06/10/25 at 11:59; Status DC Vancomycin HCl 250 ml @ 125 mls/hr Q24H IV Last administered on 06/11/25at 09:31; Start 06/11/25 at 10:00; Stop 06/11/25 at 11:15; Status DC Cefepime HCl 1 gm Q12H IVPB Last administered on 06/10/25at 14:23; Start 06/10/25 at 14:00; Stop 06/10/25 at 14:35; Status DC Olanzapine 5 mg BID PO Last administered on 06/13/25at 20:46; Start 06/10/25 at 21:00; Stop 07/10/25 at 20:59 Metronidazole/ Sodium Chloride 100 ml @ 100 mls/hr Q8H6 IVPB Last administered on 06/14/25at 05:36; Start 06/10/25 at 14:00; Stop 06/20/25 at 13:59 Midodrine 5 mg TID PO Last administered on 06/10/25at 20:08; Start 06/10/25 at 14:00; Stop 06/11/25 at 08:52; Status DC Midodrine 5 mg ONCE ONCE PO Last administered on 06/10/25at 12:56; Start 06/10/25 at 12:00; Stop 06/10/25 at 12:01; Status DC Olanzapine 5 mg ONCE ONCE PO Last administered on 06/10/25at 13:20; Start 06/10/25 at 13:00; Stop 06/10/25 at 13:01; Status DC Cefepime HCl 1 gm Q12H9 IVPB Last administered on 06/13/25at 20:40; Start 06/10/25 at 21:00; Stop 06/24/25 at 13:59 Phytonadione 10 mg Q24H SQ Last administered on 06/10/25at 15:11; Start 06/10/25 at 15:00; Stop 06/10/25 at 16:55; Status DC Phytonadione 10 mg DAILY SQ Last administered on 06/13/25at 09:24; Start 06/11/25 at 09:00; Stop 06/13/25 at 15:00; Status DC Lorazepam 1 mg ONCE ONCE IVP Last administered on 06/10/25at 22:30; Start 06/10/25 at 22:30; Stop 06/10/25 at 22:31; Status DC Midodrine 10 mg TID PO Last administered on 06/12/25at 09:01; Start 06/11/25 at 09:00; Stop 07/11/25 at 08:59 Pharmacy Profile Note 1 each ONCE MISC; Start 06/11/25 at 11:30; Stop 06/11/25 at 11:19; Status DC Linezolid 300 ml @ 150 mls/hr Q12H IV; Start 06/11/25 at 11:30; Stop 06/11/25 at 12:38; Status DC Linezolid 300 ml @ 150 mls/hr Q12H IV Last administered on 06/14/25at 02:18; Start 06/11/25 at 14:30; Stop 06/21/25 at 14:29 Furosemide 20 mg BID IVP Last administered on 06/11/25at 21:26; Start 06/11/25 at 21:00; Stop 06/12/25 at 06:54; Status DC Metoprolol Tartrate 5 mg STK-MED ONCE IV Last administered on 06/12/25at 03:22; Start 06/12/25 at 03:07; Stop 06/12/25 at 03:07; Status DC Metoprolol Tartrate 2.5 mg Q6H PRN IV; Start 06/12/25 at 03:30; Stop 07/12/25 at 03:29 Metoprolol Tartrate 5 mg ONCE ONCE IV Last administered on 06/12/25at 05:18; Start 06/12/25 at 05:00; Stop 06/12/25 at 05:01; Status DC Amiodarone HCL/ Dextrose 100 ml @ 600 mls/hr PROTOCOL IV Last administered on 06/12/25at 05:10; Start 06/12/25 at 05:00; Stop 06/12/25 at 06:53; Status DC Amiodarone HCL/ Dextrose 200 ml @ 33.333 mls/ hr PROTOCOL IV Last administered on 06/12/25at 05:11; Start 06/12/25 at 05:00; Stop 06/12/25 at 06:53; Status DC Amiodarone HCl 540 mg/Dextrose 300 ml @ 16.667 mls/ hr PROTOCOL IV Last administered on 06/12/25at 11:33; Start 06/12/25 at 10:00; Stop 06/13/25 at 03:59; Status DC Amiodarone HCL/ Dextrose 100 ml @ 0 mls/hr PROTOCOL IV; Start 06/12/25 at 07:00; Stop 06/12/25 at 07:01; Status DC Furosemide 20 mg BID IVP Last administered on 06/12/25at 08:57; Start 06/12/25 at 09:00; Stop 06/12/25 at 09:19; Status DC Furosemide 40 mg BID IVP Last administered on 06/13/25at 20:45; Start 06/12/25 at 21:00; Stop 07/12/25 at 20:59 Furosemide 20 mg ONCE ONCE IV Last administered on 06/12/25at 09:52; Start 06/12/25 at 09:30; Stop 06/12/25 at 09:31; Status DC Metoprolol Tartrate 25 mg BID PO Last administered on 06/13/25at 20:47; Start 06/12/25 at 21:00; Stop 07/12/25 at 20:59 Methylprednisolone Sodium Succinate 40 mg Q12H9 IVP Last administered on 06/13/25at 20:42; Start 06/12/25 at 21:00; Stop 07/09/25 at 13:29 Fluticasone Propionate 1 SPRAY DAILY EN Last administered on 06/13/25at 09:17; Start 06/12/25 at 15:00; Stop 07/12/25 at 14:59 Lactulose 20 gm ONCE ONCE PO Last administered on 06/13/25at 09:14; Start 06/13/25 at 07:30; Stop 06/13/25 at 07:31; Status DC Lactulose 20 gm BID PRN PO; Start 06/13/25 at 07:30; Stop 07/13/25 at 07:29 Sodium Bicarbonate 100 meq ONCE ONCE IV Last administered on 06/13/25at 09:11; Start 06/13/25 at 08:30; Stop 06/13/25 at 08:31; Status DC Amiodarone HCl 200 mg BID ONCE PO Last administered on 06/13/25at 09:13; Start 06/13/25 at 09:00; Stop 06/13/25 at 09:14; Status DC Amiodarone HCl 200 mg BID PO Last administered on 06/13/25at 20:45; Start 06/13/25 at 21:00; Stop 07/13/25 at 20:59 Sodium Bicarbonate 650 mg BID PO; Start 06/13/25 at 11:30; Stop 06/13/25 at 11:58; Status DC Sodium Bicarbonate 1,300 mg BID PO Last administered on 06/13/25at 20:46; Start 06/13/25 at 21:00; Stop 07/13/25 at 20:59 RADHA GOLDSTEIN MD Jun 14, 2025 08:37
--- NOTE | 2025-06-14 09:54 | PN ---
[facility] PROGRESS NOTE Date Patient Seen: Jun 14, 2025 Time of Visit: 09:38 Supervising Physician: Dr Bg Founatin Primary Care Physician: [Dr. Yoel Pierson] Outpatient Specialists: [ ] Inpatient Consults: [[facility]-ICU ] PROBLEM LIST: Acute hypoxic respiratory failure present on admission Paroxysmal atrial fibrillation Respiratory Alkalosis Metabolic acidosis Sepsis 2/2 community acquired pneumonia-POA Aortic valve vegetations Bacterial endocarditis with negative blood cultures Hepatic transaminitis NSTEMI-likely type II 2/2 demand ischemia from hypoxia vs. true cardiac etiology-POA- negative for chest pain or ST/T wave abnormality. HEART score 6 points=12-16.6% risk for MACE Possible new-onset CHF with exacerbation-POA Hyperlactatemia-POA Acute delirium Acute COPD exacerbation Emphysema secondary to tobacco use disorder Pulmonary edema-POA Bilateral pleural effusions-POA Moderate hyponatremia, suspected acute-POA Chronic nicotine disorder: [id number] HX Prior CVA Hyperthyroid disorder/Graves disease with right thyroid nodule INTERVAL HISTORY: Patient seen and examined, all labs and imaging have been reviewed, patient is awake alert and following commands but continues to be confused at times Pending an ABG this morning, chest x-ray reveals continued congestion, her BNP 4680 Patient's lactic continues to climb, 4.6 this morning Renal function is declining, BUN up to 55, GFR is down to 32, she had about 550 out overnight despite being on Lasix 40 q.12 Patient's echocardiogram revealed a 50-55% EF with multiple vegetations, she has been pending a VICK. Patient is LFTs downtrending, bilirubin is up 2.6, pending a HIDA scan but remains on clear diet so not scheduled at this time She is off Precedex She has a sitter at bedside She continues on the heparin drip Plan: Continue to follow cardiology recs, she is pending a VICK , continues on heparin protocol We are following GI recommendations, HIDA scan is pending, currently on clear diet however Trending labs Continue diurese, following nephrology, declining renal function and urine output despite being on Lasix Telemetry Supplemental O2, steroids, patient continues to refuse her BiPAP INcrease lasix q 8 Total critical care time spent 64 minutes, this excludes any procedures performed or any time spent in educational or teaching. REVIEW OF SYSTEMS: More awake today, able to answer questions and oriented to self and place. No other major complaints reported by the patient herself and most of the information is obtained from nursing staff and medical records at bedside. PHYSICAL EXAM: GENERAL: Awake, alert and oriented to time and place. Patient oriented to self and appears to be less jaundice. HEENT: EOMI, Sclera non icteric, dry mucosa NECK: Supple, no JVD, trachea midline LUNGS: Grossly clear, decreased air entry without wheezing HEART: Regular rate and rhythm. Normal S1 and S2, without murmurs, tachycardia ABD: Abdomen soft, nontender. Bowel sounds present EXT: No clubbing cyanosis or edema NEURO: Awake, alert. Off Precedex drip Vital Signs (last 8hr) Date Time Temp Pulse Resp B/P (MAP) Pulse Ox O2 Delivery O2 Flow Rate FiO2 06/14/25 08:30 83 24 N/Cannula Oximizer Hi LPM 10.0 06/14/25 06:45 83 22 06/14/25 05:37 79 22 138/56 87 OXYMIZER 12.0 06/14/25 04:37 81 21 137/67 89 OXYMIZER 10.0 06/14/25 04:19 91 N/C Oxymizer Hi LPM* 10 99 06/14/25 03:23 84 24 06/14/25 03:11 97.0 LABS: Hematology Labs: Test 06/14/25 04:30 06/13/25 04:13 Range/Units White Blood Count 15.1 H 4.8-10.8 K/uL Red Blood Count 4.13 4.00-5.50 MIL/uL Hemoglobin 10.0 L 12.0-16.0 g/dL Hematocrit 29.9 L 36-48 % Mean Corpuscular Volume 72.4 L 79-99 fL Mean Corpuscular Hemoglobin 24.2 L 27.0-33.0 pg Mean Corpuscular Hemoglobin Concent 33.4 32.0-36.0 g/dL Red Cell Distribution Width 20.4 H 11.0-15.5 % Platelet Count 188 130-400 K/uL Mean Platelet Volume 10.5 7.5-10.5 fL Segmented Neutrophils % 96 H 40-70 % Monocytes % (Manual) 3 2-9 % Nucleated Red Blood Cells 9.1 H 0.0-0.19 % Differential Comment MANUAL DIFFERENTIAL Reactive Lymphocytes 1 H 0-0 % White Cell Morphology Comment See comments Platelet Morphology Comment ADEQUATE Red Blood Cell Morphology MICROCYTIC 1+ Immature Granulocyte % (Auto) 0.7 0-1 % Neutrophils (%) (Auto) 89.6 H 40.0-77.0 % Lymphocytes (%) (Auto) 4.9 L 21.0-51.0 % Monocytes (%) (Auto) 4.7 3.0-13.0 % Eosinophils (%) (Auto) 0.0 0.0-8.0 % Basophils (%) (Auto) 0.1 0.0-5.0 % Neutrophils # (Auto) 17.2 H 1.8-7.7 K/uL Lymphocytes # (Auto) 0.9 L 1.0-4.8 K/uL Monocytes # (Auto) 0.9 0.1-1.0 K/uL Eosinophils # (Auto) 0.00 0.00-0.70 K/uL Basophils # (Auto) 0.02 0.00-0.20 K/uL Absolute Immature Granulocyte (auto 0.14 0-1 K/uL Chemistry Labs: Test 06/14/25 08:48 06/14/25 04:30 06/13/25 11:40 Range/Units Lactic Acid Level 4.6 H 0.8-2.5 mmol/L Sodium Level 137 136-145 mmol/L Potassium Level 3.6 3.5-5.1 mmol/L Chloride Level 102 101-111 mmol/L Carbon Dioxide Level 21 21-32 mmol/L Blood Urea Nitrogen 55 H 7-18 mg/dL Creatinine 1.7 H 0.5-1.0 mg/dL Glomerular Filtration Rate Calc 32 >90 mL/min Random Glucose 208 H 70-105 mg/dL Total Calcium 7.7 L 8.5-10.1 mg/dL Total Bilirubin 2.4 H 0.2-1.0 mg/dL Aspartate Amino Transf (AST/SGOT) 105 H 10-37 U/L Alanine Aminotransferase (ALT/SGPT) 468 H 12-78 U/L Alkaline Phosphatase 95 50-136 U/L C-Reactive Protein, Quantitative 28.70 H 0.5-3.0 mg/L B-Type Natriuretic Peptide 4680 H 0-100 pg/mL Total Protein 5.4 L 6.0-8.3 g/dL Albumin 2.2 L 3.5-5.0 g/dL Whole Blood Ketones Quantitative 0.4 0.0-0.6 mmol/L Coagulation Labs: Test 06/14/25 04:30 Range/Units Activated Partial Thromboplast Time 121.5 *H 26.3-35.5 SEC DIAGNOSTICS / RADIOLOGY RESULTS: [ ] PLAN NEURO: Minimize central acting medications as possible. Fall Precautions. Well lighted room through the day and minimize interruptions through the night to prevent acute delirium. PULMONARY: Supplemental 02 as needed Titrate Fio2 to keep Spo2 > or = 90% DuoNebs and CPT as needed IS hourly while awake for pulmonary hygiene Out of bed to chair as tolerated VAP Bundle Vent/BIPAP Settings: [ ] Driving pressure: [ ] P Plat: [ ] Static C: [ ] Static R: [ ] P/F Ratio: [ ] CARDIOVASCULAR: Follow hemodynamics. Titrate vasopressor to keep MAP >65 or systolic blood pressure >95mmHg DRIPS: [Precedex] LINES: [ ] GI & NUTRITION: Continue nutritional support Aspirations precautions Prokinetic agents and laxatives as needed KIDNEYS & ELECTROLYTES: Strict monitoring of intake and output Daily weights Avoid nephrotoxic agents Monitor electrolytes and replace as needed Goal urine output of 30mL/hr or 0.5mL/kg/hr Urine output: [ ] Fluid Balance: [ ] ENDOCRINE: Maintain blood glucose between 100-180 at all times. Insulin sliding scale for blood glucose management INFECTIOUS DISEASE: Trend temperature. Dubois-culture if febrile. Micro: [ ] Antibiotics: [Vancomycin and Cefepime ] HEMATOLOGY & COAGULATION: Monitor H&H. Keep Hgb > 7 Transfuse 1 unit of PRBC for Hgb < 7 Transfuse 1 pack of platelets of platelets < 20, 000 Watch for any signs and symptoms of bleeding SKIN: Pressure ulcer prevention per facility protocol Rehab: PT/OT Prophylaxis: GI: [Pepcid ] DVT: [Heparin] Code Status: Full Resuscitation Disposition: [ICU] JOHN MCCLAIN PAC Jun 14, 2025 09:54
--- NOTE | 2025-06-14 10:01 | PN ---
[facility] PROGRESS NOTE Date of Service: Jun 14, 2025 Time of Service: 10:00 SUBJECTIVE: HISTORY OF PRESENT ILLNESS: This is a 69-year-old female past medical history of emphysema peripheral neuropathy, atrial fibrillation and hyperthyroidism who was brought by EMS to the ED for complaints of shortness of breaths,dry cough and generalized body weakness which started for the past 3 weeks and getting worse this past few days.Patient reports she lives alone and a current heavy cigarette smoker 1 pack/day.As per patient she has been going to her PCP every week x 3 weeks and was started on steroids prednisone and inhaler and patient also reports was admitted for having atrial fibrillation last 05/09/25 and was seen by at [facility] [place]. Patient reports has not seen a quality facilitator.Patient complaints of chest tightness with dry cough for the past 3 weeks but has not improved and its getting worse so she decided to come to the ED .On further evaluation ,patient was asked by the undersigned if it come to appoint where she needs to be orally intubated and patient states she is okay and in the meantime she wants to try th e Bipap. Seen and examined patient in the ER awake,alert and appears very short of breath,she has a friend at bedside and helping her from time to time with medical history as patient appears anxious as well.Patient denies chest pain,palpitation,nausea,vomiting and fever. Latest vital signs temperature 98.1, heart rate 110, respiration 35, blood pressure 140/56 saturation 96 on B iPAP 40% FiO2. Labs: WBC 19 with negative left shift of neutrophils 84, hemoglobin 9, hematocrit 30, platelet count 386. Sodium 122, chloride 93, CO2 18, BUN 23, glucose 140, lactic acid 3.1 troponin 112 BNP 3370. D-dimer 3746, PT 15, INR 1.4 PTT 28. Influenza type a and B negative SARS COVID negative. Chest x-ray result revealed bilateral perihilar and bibasilar airspace disease possibly representing pulmonary edema with small bilateral pleural effusion. [id number] cardiomegaly and pulmonary vascular congestion. While in the ER patient received Solu-Medrol 125 mg IV, albuterol two unit dose via inhalation, levofloxacin 750 mg IV, Protonix 40 mg, NS 500 mL bolus, Lasix 80 mg IV and morphine 2 mg IV. Patient was started on Precedex per ICU radha mmendation. Admit patient for further medical management. 06/09/2025: The patient was seen and evaluated bedside in ICU, no family at bedside. Patient is agitated, anxious on max doses of Precedex, saturating 100% with FiO2 60 on BiPAP. Patient is currently on norepinephrine drip 0.05 mcg/mL/kg and heparin drip q.[address] chest showed no pulmonary thromboembolism, small to medium pericardial effusion, cardiomegaly, pulmonary vascular congestion, pulmonary edema and multifocal pneumonia in bilateral lung alejandro. Continue Zosyn, doxycycline, IV Lasix, Solu-Medrol IV. Morning lab showed white count 17.4, sodium 124, bicarb 14, lactic acid 3.7, troponin 178, BNP 3060, AST 1479, ALT 561. Patient has bicarb deficit of 336, we ordered sodium bicarbonate 100 mEq single dose and we will repeat bicarb this evening. Nephrology, Cardiology, critical Care on board we will continue to follow the recommendations. 06/10/2025: The patient was seen and evaluated bedside in ICU, no family at bedside. Patient is currently on Precedex, norepinephrine drip. Abdominal ultrasound showed focal edematous wall thickening of gallbladder with minimal pericholecystic fluid, recommended HIDA scan if there is persistent clinical concern for cholecystitis. Lab showed white count trending down to 17.1, lactic acid trending down to 3, AST 3143, ALT 1515. Zosyn has been discontinued by Infectious Disease, patient was started on cefepime and vancomycin. Cardiology recommended transesophageal echocardiography once the patient become more stable. 06/11/2025: The patient was seen and evaluated bedside in ICU, no family at bedside. Patient is currently on one-to-one sitter. Patient continues to be on Precedex, norepinephrine, heparin drip. Morning lab shows white count 22.3, sodium 135, potassium 3.1, BUN 52, creatinine 1.5, fibrinogen 265, lactic acid trended down to 2, AST trended down to 946, ALT trended down to 1026. Blood culture shows no growth so far. Continue IV antibiotics as recommended by Infectious Disease. 06/12/2025: Patient was evaluated bedside in room 215 and several family members were present at the bedside. Patient also has 2 on 1 sitter. Patient was awake and alert but is mildly confused. Patient is still recovering from sepsis from community-acquired pneumonia and her white count remained stable at 22.4k. Patient oxygenating well via high-flow nasal cannula Oxymizer with flow rate of 5 L. Still continues on amiodarone drip due to AFib with telemetry consistent with Afib. Patient is still pending a HIDA scan and VICK due to her respiratory status. We will continue linezolid, cefepime and doxycycline and start to taper methylprednisolone as per critical Care recommendations. 06/13/2025: Patient was seen and evaluated in room 215, no family at bedside. Patient is awake, alert, oriented x3, saturating 96 % with Oxymizer. Patient says that she is feeling better, denies any new or worsening symptoms. Cardiology recommended discontinuing amiodarone drip, started patient on amiodarone 200 mg twice daily. Labs show white count trending down to 19.2, BNP trending down to 3180, AST trending down to 193, ALT trending down to 608. We w ill continue linezolid, cefepime, metronidazole and doxycycline. 06/14/2025: Patient was seen and evaluated in room 215, no family at bedside. Patient is awake, alert, saturating 90% with 10L nasal cannula. Morning labs show white count trending down to 15.1, BUN 55, creatinine 1.7, BNP 4680, lactic acid 4.6, AST trending down to 105, ALT trending down to 468. We will order li mited echocardiogram to check for aortic valve vegetations and ejection fraction. Continue oral amiodarone, Lasix, Solu-Medrol, linezolid, cefepime, metronidazole, doxycycline. Plan for VICK as per cardiology. Cardiology, Infectious Disease on board we will continue to follow their recommendations. REVIEW OF SYSTEMS CONSTITUTIONAL: Denies fevers, chills, or night sweats. No unintentional weight loss reported. NEUROLOGICAL: Denies headache, amaurosis fugax, motor weakness, sensory deficit, vertigo/spinning sensation, gait abnormalities, or tremors. ENT: No hearing loss, otalgia, otorrhea, rhinitis, rhinorrhea, hoarseness, or sore throat. CARDIOVASCULAR: Denies any exertional angina, dyspnea on exertion, orthopnea, paroxysmal nocturnal dyspnea, palpitations, life-threatening arrhythmias, claudication. PULMONARY: Complaints of shortness of breaths, dry cough and chest tightness x3 weeks Denies phlegm/sputum, hemoptysis, pleuritic chest pain. SLEEP: Denies morning headaches, daytime somnolence or napping. Denies difficulty falling asleep, staying asleep, waking from sleep. Denies knowledge of snoring. GASTROINTESTINAL: Denies any type of dysphagia to either liquids or solids. Denies nausea, vomiting, pyrosis, early satiety, abdominal pain, diarrhea, constipation, or changes in stool consistency or caliber. Denies coffee-ground emesis, hematemesis, hematochezia, or melanotic stools. GENITOURINARY: Denies frequency, urgency, nocturia, hematuria or incontinence (Storage/Irritative symptoms.) Low urinary stream, straining to void, urinary intermittency or hesitancy, splitting of the voiding stream, terminal dribbling. ENDOCRINOLOGIC: Denies polyuria, polydipsia, polyphagia or heat/cold intolerances. HEMATOLOGIC: Denies thrombophilia/previous clots, or coagulopathy/bleeding disorders. ONCOLOGIC: Denies personal history of malignancy. DERMATOLOGIC: Denies rashes or pruritus. PSYCHIATRIC: Denies any suicidal or homicidal ideation. Denies hallucinations. PHYSICAL EXAM GENERAL APPEARANCE: The patient is awake, alert, and oriented to self but not to place and time ,moderate respiratory distress NEUROLOGICAL: Cranial nerves II-XII grossly intact. Motor is 5/5 in bilateral upper and lower extremities proximal to distal. No sensory deficits. HEENT: Face is symmetric. Pupils are equal and reactive. Extraocular movements are intact. NECK: Supple. No JVD. No thyromegaly. No submental, submandibular, pre- /postauricular, occipital or supraclavicular lymphadenopathy. CHEST: Normal chest expansion. No Telemetry. LUNGS: tachypneic, with NC via Oxymizer CARDIOVASCULAR: Tachycardic Regular. S1 and S2 normal. No appreciable rubs, murmurs or gallops. ABDOMEN: Soft, nontender, and nondistended. There is no rebound, voluntary gu arding, or rigidity. : Deferred. Gonzalez. EXTREMITIES: Non-edematous and not cyanotic. No clubbing. Good capillary refill. SKIN: No skin breakdown. Vital Signs (last 8hr) Date Time Temp Pulse Resp B/P (MAP) Pulse Ox O2 Delivery O2 Flow Rate FiO2 06/14/25 08:30 83 24 N/Cannula Oximizer Hi LPM 10.0 06/14/25 06:45 83 22 06/14/25 05:37 79 22 138/56 87 OXYMIZER 12.0 06/14/25 04:37 81 21 137/67 89 OXYMIZER 10.0 06/14/25 04:19 91 N/C Oxymizer Hi LPM* 10 99 06/14/25 03:23 84 24 06/14/25 03:11 97.0 LABS: Laboratory: Test 06/14/25 08:48 06/14/25 04:30 06/13/25 21:08 06/13/25 11:40 Range/Units Lactic Acid Level 4.6 H 0.8-2.5 mmol/L White Blood Count 15.1 H 4.8-10.8 K/uL Red Blood Count 4.13 4.00-5.50 MIL/uL Hemoglobin 10.0 L 12.0-16.0 g/dL Hematocrit 29.9 L 36-48 % Mean Corpuscular Volume 72.4 L 79-99 fL Mean Corpuscular Hemoglobin 24.2 L 27.0-33.0 pg Mean Corpuscular Hemoglobin Concent 33.4 32.0-36.0 g/dL Red Cell Distribution Width 20.4 H 11.0-15.5 % Platelet Count 188 130-400 K/uL Mean Platelet Volume 10.5 7.5-10.5 fL Segmented Neutrophils % 96 H 40-70 % Monocytes % (Manual) 3 2-9 % Nucleated Red Blood Cells 9.1 H 0.0-0.19 % Differential Comment MANUAL DIFFERENTIAL Reactive Lymphocytes 1 H 0-0 % White Cell Morphology Comment See comments Platelet Morphology Comment ADEQUATE Red Blood Cell Morphology MICROCYTIC 1+ Activated Partial Thromboplast Time 121.5 *H 26.3-35.5 SEC Sodium Level 137 136-145 mmol/L Potassium Level 3.6 3.5-5.1 mmol/L Chloride Level 102 101-111 mmol/L Carbon Dioxide Level 21 21-32 mmol/L Blood Urea Nitrogen 55 H 7-18 mg/dL Creatinine 1.7 H 0.5-1.0 mg/dL Glomerular Filtration Rate Calc 32 >90 mL/min Random Glucose 208 H 70-105 mg/dL Total Calcium 7.7 L 8.5-10.1 mg/dL Total Bilirubin 2.4 H 0.2-1.0 mg/dL Aspartate Amino Transf (AST/SGOT) 105 H 10-37 U/L Alanine Aminotransferase (ALT/SGPT) 468 H 12-78 U/L Alkaline Phosphatase 95 50-136 U/L C-Reactive Protein, Quantitative 28.70 H 0.5-3.0 mg/L B-Type Natriuretic Peptide 4680 H 0-100 pg/mL Total Protein 5.4 L 6.0-8.3 g/dL Albumin 2.2 L 3.5-5.0 g/dL Blood Gas Specimen Type Arterial Arterial Blood pH 7.481 H 7.350-7.450 Arterial Blood Partial Pressure CO2 25 L 32-45 mmHg Arterial Blood Partial Pressure O2 < 45.0 *L 83.0-108.0 mmHg Arterial Blood HCO3 18.3 L 21.0-28.0 mmol/L Arterial Blood Oxygen Saturation 82.6 L 94.0-98.0 % Arterial Blood Base Excess -3.3 L -2.0-3.0 mmol/L Blood Gas Temperature 37.0 35.5-37.0 CELSIUS Blood Gas Flow-by 10.00 0.00-15.00 L/min Blood Gas Vent Mode 10L OXY ROOM AIR FiO2 60.0 % Blood Gas Specimen Comment RN Whole Blood Ketones Quantitative 0.4 0.0-0.6 mmol/L Test 06/13/25 04:13 Range/Units Immature Granulocyte % (Auto) 0.7 0-1 % Neutrophils (%) (Auto) 89.6 H 40.0-77.0 % Lymphocytes (%) (Auto) 4.9 L 21.0-51.0 % Monocytes (%) (Auto) 4.7 3.0-13.0 % Eosinophils (%) (Auto) 0.0 0.0-8.0 % Basophils (%) (Auto) 0.1 0.0-5.0 % Neutrophils # (Auto) 17.2 H 1.8-7.7 K/uL Lymphocytes # (Auto) 0.9 L 1.0-4.8 K/uL Monocytes # (Auto) 0.9 0.1-1.0 K/uL Eosinophils # (Auto) 0.00 0.00-0.70 K/uL Basophils # (Auto) 0.02 0.00-0.20 K/uL Absolute Immature Granulocyte (auto 0.14 0-1 K/uL Current Medications Medications (Trade) Dose Ordered Sig/Rossy Route PRN Reason Start Time Stop Time Status Last Admin Dose Admin Acetaminophen (TYLenol 325MG TAB) 650 mg Q4H PRN PO MILD PAIN (1-3) 06/08/25 20:30 07/08/25 20:29 06/12/25 10:16 650 MG Acetaminophen (TYLenol 325MG TAB) 650 mg Q6H PRN PO TEMPERATURE GREATER THAN 101.5 06/08/25 20:30 07/08/25 20:29 06/12/25 20:47 650 MG Albuterol (DUOneb) 1 udvial [id number] 06/08/25 22:00 07/08/25 21:59 06/14/25 06:45 1 UDVIAL Amiodarone HCl (pacERONE 200MG) 200 mg BID PO 06/13/25 21:00 07/13/25 20:59 06/14/25 08:29 200 MG Amiodarone HCl 540 mg/Dextrose 300 ml @ 16.667 mls/ hr PROTOCOL IV 06/12/25 10:00 06/13/25 03:59 DC 06/12/25 11:33 16.667 MLS/HR Amiodarone HCL/ Dextrose 100 ml @ 600 mls/hr PROTOCOL IV 06/12/25 05:00 06/12/25 06:53 DC 06/12/25 05:10 600 MLS/HR Amiodarone HCL/ Dextrose 100 ml @ 0 mls/hr PROTOCOL IV 06/12/25 07:00 06/12/25 07:01 DC Amiodarone HCL/ Dextrose 200 ml @ 33.333 mls/ hr PROTOCOL IV 06/12/25 05:00 06/12/25 06:53 DC 06/12/25 05:11 33.333 MLS/HR Budesonide (Pulmicort 0.5 Mg/2ml) 0.5 mg BIDRESP 06/09/25 18:00 07/09/25 17:59 06/14/25 06:45 0.5 MG Cefepime HCl (MAXipime 1 GM vial) 1 gm Q12H IVPB 06/10/25 14:00 06/10/25 14:35 DC 06/10/25 14:23 1 GM Cefepime HCl (MAXipime 1 GM vial) 1 gm Q12H9 IVPB 06/10/25 21:00 06/24/25 13:59 06/14/25 08:26 1 GM Cefepime HCl (MAXipime 1 GM vial) 1 gm Q8H IVPB 06/10/25 09:30 06/10/25 09:41 DC Dexmedetomidine/ Sodium Chloride (PRECEdex 400MCG/ 100ML-NS) 400 mcg PROTOCOL IV 06/08/25 20:00 06/11/25 17:00 DC 06/11/25 09:27 400 MCG Dorzolamide/ Timolol (Cosopt Eye Drops) 1 DROP BID OP 06/09/25 21:00 07/09/25 20:59 06/14/25 08:27 1 ML Doxycycline Hyclate 250 ml @ 125 mls/hr Q12H IV 06/08/25 23:00 06/18/25 22:59 06/13/25 23:44 125 MLS/HR Famotidine (Pepcid 20mg Vial) 20 mg DAILY IV 06/09/25 09:00 06/09/25 13:09 DC 06/09/25 08:39 20 MG Fluticasone Propionate (FLOnase 50 mcg/ spray 16g bottle) 1 SPRAY DAILY EN 06/12/25 15:00 07/12/25 14:59 06/14/25 08:22 1 SPRAYS Furosemide (LASix 20MG VIAL) 20 mg BID IVP 06/12/25 09:00 06/12/25 09:19 DC 06/12/25 08:57 20 MG Furosemide (LASix 40MG VIAL) 20 mg BID IVP 06/11/25 21:00 06/12/25 06:54 DC 06/11/25 21:26 20 MG Furosemide (LASix 40MG VIAL) 40 mg BID IVP 06/08/25 21:00 06/11/25 17:00 DC 06/11/25 09:32 40 MG Furosemide (LASix 40MG VIAL) 40 mg BID IVP 06/12/25 21:00 07/12/25 20:59 06/14/25 08:24 40 MG Heparin Sodium (Porcine) (HEParin 5,000 UNIT VIAL) *calculation based on ACTUAL B... AD PRN IV HEPARIN PROTOCOL 06/09/25 04:00 07/09/25 03:59 Heparin Sodium/ Dextrose 250 ml @ 0 mls/hr Q6H IV 06/09/25 04:00 07/09/25 03:59 06/13/25 15:40 7.4 MLS/HR Home Med (Home Medication) (Methimazole 5MG TAB) - 0.5 TAB... DAILY PO 06/10/25 09:00 07/10/25 08:59 06/14/25 08:28 0.5 EACH Lactulose (Constulose 20gm/ 30ml Udcup) 20 gm BID PRN PO CONSTIPATION 06/13/25 07:30 07/13/25 07:29 Latanoprost (Xalatan) 1 DROP HS OD 06/09/25 21:00 07/09/25 20:59 06/13/25 20:57 1 DROP Levofloxacin/ Dextrose 100 ml @ 100 mls/hr Q24H IV 06/09/25 20:00 06/08/25 22:40 DC Linezolid 300 ml @ 150 mls/hr Q12H IV 06/11/25 11:30 06/11/25 12:38 DC Linezolid 300 ml @ 150 mls/hr Q12H IV 06/11/25 14:30 06/21/25 14:29 06/14/25 02:18 150 MLS/HR Magnesium Sulfate 50 ml @ 0 mls/hr PROTOCOL PRN IV MAGNESIUM PROTOCOL 06/09/25 17:00 07/09/25 16:59 06/12/25 03:21 25 MLS/HR Methylprednisolone Sodium Succinate (Solu-medROL 40MG) 40 mg Q12H9 IVP 06/12/25 21:00 07/09/25 13:29 06/14/25 08:26 40 MG Methylprednisolone Sodium Succinate (Solu-medROL 40MG) 40 mg Q8H IVP 06/09/25 13:30 06/12/25 14:11 DC 06/12/25 13:23 40 MG Metoprolol Tartrate (loprESSOR) 2.5 mg Q6H PRN IV heart rate greater than 110 06/12/25 03:30 07/12/25 03:29 Metoprolol Tartrate (loprESSOR) 25 mg BID PO 06/12/25 21:00 07/12/25 20:59 06/14/25 08:29 25 MG Metronidazole/ Sodium Chloride 100 ml @ 100 mls/hr Q8H6 IVPB 06/10/25 14:00 06/20/25 13:59 06/14/25 05:36 100 MLS/HR Midodrine (PROAMatine 5 MG TABLET) 5 mg TID PO 06/10/25 14:00 06/11/25 08:52 DC 06/10/25 20:08 5 MG Midodrine (PROAMatine 5 MG TABLET) 10 mg TID PO 06/11/25 09:00 07/11/25 08:59 06/12/25 09:01 10 MG Nicotine (Nicoderm) 21 mg DAILY TD 06/08/25 23:00 07/08/25 22:59 06/14/25 08:38 21 MG Norepinephrine 250 ml @ 0 mls/hr PROTOCOL IV 06/09/25 01:00 07/09/25 00:59 06/11/25 10:05 6.75 MLS/HR Olanzapine (ZyPREXA 5 mg tab) 5 mg BID PO 06/10/25 21:00 07/10/25 20:59 06/14/25 08:29 5 MG Ondansetron HCl (zoFRAN 4MG INJ) 4 mg Q6H PRN IV NAUSEA/VOMITING 06/08/25 20:30 07/08/25 20:29 Oseltamivir Phosphate (Tamiflu) 75 mg BID PO 06/09/25 21:00 06/10/25 09:08 DC 06/10/25 09:03 75 MG Pantoprazole Sodium (PROTonix 40MG INJ) 40 mg DAILY IVP 06/10/25 09:00 07/10/25 08:59 06/14/25 08:24 40 MG Pharmacy Profile Note (Pharmacy Communication) 1 each ONCE MISC 06/09/25 03:00 06/09/25 03:24 DC Pharmacy Profile Note (Pharmacy Communication) 1 each ONCE MISC 06/11/25 11:30 06/11/25 11:19 DC Phytonadione (Vitamin K 10mg/ 1ml Adult Vial) 10 mg DAILY SQ 06/11/25 09:00 06/13/25 15:00 DC 06/13/25 09:24 10 MG Phytonadione (Vitamin K 10mg/ 1ml Adult Vial) 10 mg Q24H SQ 06/10/25 15:00 06/10/25 16:55 DC 06/10/25 15:11 10 MG Piperacillin Sod/ Tazobactam Sod (Zosyn 3.375gm+NS 50ml) 3.375 gm Q8H IV 06/08/25 23:00 06/10/25 09:08 DC 06/10/25 07:10 3.375 GM Potassium Chloride 100 ml @ 50 mls/hr AD PRN IV POTASSIUM PROTOCOL 06/09/25 17:00 06/11/25 06:10 DC 06/09/25 21:18 50 MLS/HR Potassium Chloride 100 ml @ 100 mls/hr AD PRN IV POTASSIUM PROTOCOL 06/09/25 17:00 07/09/25 16:59 06/14/25 05:36 100 MLS/HR Potassium Chloride (K-Dur/Klor-Con 20meq) 20 meq AD PRN PO POTASSIUM PROTOCOL 06/09/25 17:00 07/09/25 16:59 Potassium Chloride (KCl 10% Elixir 20meq/15ml) 20 meq AD PRN PO POTASSIUM PROTOCOL 06/09/25 17:00 07/09/25 16:59 Sodium Bicarbonate 150 meq/Sodium Chloride 1,150 ml @ 100 mls/hr [id number] IVP 06/09/25 12:00 06/09/25 12:29 DC Sodium Bicarbonate (Sodium Bicarbonate) 650 mg BID PO 06/13/25 11:30 06/13/25 11:58 DC Sodium Bicarbonate (Sodium Bicarbonate) 1,300 mg BID PO 06/13/25 21:00 07/13/25 20:59 06/13/25 20:46 1,300 MG Vancomycin HCl 250 ml @ 125 mls/hr Q24H IV 06/11/25 10:00 06/11/25 11:15 DC 06/11/25 09:31 125 MLS/HR Vancomycin HCl (Vancomycin Protocol) 1 each AD IV 06/10/25 09:30 06/11/25 11:15 DC Ziprasidone (Geodon) 10 mg Q6H PRN IM AGITATION/PSYCHOSIS 06/09/25 18:00 12/26/25 17:59 06/11/25 17:28 10 MG DIAGNOSTICS / RADIOLOGY: [ ] ASSESSMENT: Acute hypoxemic respiratory failure POA Sepsis secondary to community acquired pneumonia-POA Aortic insufficiency due to Multiple vegetations seen on the aortic valve leafelts. (2D echo 06/09/2025) Acute CHF exacerbation with possible pulmonary edema POA Elevated troponin likely due to type 2 demand ischemia POA Acute COPD exacerbation POA Nicotine Dependence POA Acute anemia POA Acute leukocytosis POA Moderate Hyponatremia and hypochloremia POA Hyperglycemia POA Lactic acidosis POA Hyperthyroidism POA Peripheral neuropathy POA History of emphysema POA History of atrial fibrillation not on anticoagulation PLAN: Acute hypoxemic respiratory failure POA On Presentation patient's respiratory rate 30, heart rate 108, saturating 96% with2 L nasal cannula Chest x-ray showed bilateral perihilar and bibasilar airspace disease Patient weaned off BiPAP and on nasal cannula via Oxymizer, continue DuoNeb q.4 IV Solu-Medrol 40 mg Q8 IV has been tapered to 40 mg q.12h IV Critical Care on board, we will follow the recommendations. Sepsis secondary to community acquired pneumonia-POA On presentation heart rate 108, respiratory rate 30, white count 19.7, lactic acid 3.1 Chest x-ray showed bilateral perihilar and bibasilar airspace disease CT chest showed multifocal pneumonia bilateral lungs, pulmonary vascular congestion, pulmonary edema Vancomycin was stopped by Infectious Disease, patient was started on linezolid IV q.12h , continue cefepime Continue doxycycline q.12h IV , metronidazole q.8 IV We will trend lactic acid Moderate Hyponatremia and hypochloremia POA On presentation sodium 122, chloride 93 Serum osmolality low at 274, urine osmolality normal, BNP 3370 Hyponatremia most likely due to fluid overload Continue IV Lasix 40 mg b.i.d. Sodium today 137 Nephrology on board, we will follow the recommendations. Aortic insufficiency due to Multiple vegetations seen on the aortic valve leafelts. (2D echo 06/09/2025) 2D echocardiogram showed LVEF 50-55%, normal left ventricular diastolic function, normal right ventricular systolic function Multiple vegetations seen on aortic valve leaflets, difficulty to assess severity of aortic insufficiency, moderate mitral valve regurgitation BNP trended up to 4680 today Continue IV Lasix 40 mg b.i.d. Vancomycin was stopped by Infectious Disease, patient was started on linezolid IV q.12h , continue cefepime Continue doxycycline q.12h IV, metronidazole q.8 IV Blood culture showed no growth so far We will Request consultation from Infectious Disease GI Prophylaxis with famotidine 20 mg IV daily D[facility] [place] [facility] BY PHYSICIAN I have seen and examined the patient. I reviewed the documentation, medical decision making, and treatment plan as noted by the resident physician above. I agree with the findings and plan of care. MIKAYLA RAINES MD, ADIL SHAH QUADRI MD Jun 14, 2025 10:01
[2025-06-14 10:10] LABS: ABG BASE EXCESS -5.0 mmol/L (-2.0-3.0); ABG HCO3 18.0 mmol/L (21.0-28.0); ABG OXYGEN SATURATION 88.2 % (94.0-98.0); ABG PCO2 29 mmHg (32-45); ABG PH 7.416 (7.350-7.450); DEVICE COMMENT RR, LEO,RN; PO2, ARTERIAL BG 52.4 mmHg (83.0-108.0); TEMPERATURE, CELSIUS BG 37.0 CELSIUS (35.5-37.0)
--- NOTE | 2025-06-14 11:30 | NUR ---
SPEECH NOTE: YARD TRUCK DRIVER coordinated with nurse Ellis. Pt was evaluated on 06/12/2025 and was recommended a soft and bite sized solids and thin liquid diet. YARD TRUCK DRIVER documented that MBSS was being cancelled at that time; however it continues active. As per nurse, patient with no s/s of aspiration with diet recommendations. Nurse called MD and confirmed that MBSS was not warranted at this time. MBSS cancelled. Please re-consult speech therapy services if any s/s of aspiration arise. All questions answered. Addendum: 06/14/[address] [facility] Amended: Links added.
--- NOTE | 2025-06-14 11:33 | NUR ---
SPOKE WITH DR. LONG TO ASK ABOUT PATIENT MBSS ORDER. INFORMED MD THAT PATIENT IS ABLE TO SWALLOW PILLS WHOLE AND DRINKS WATER WITHOUT COUGHING OR SHOWING OTHER SIGNS OF DYSPHAGIA. MD STATED WE CAN CANCEL THE MBSS ORDER.
[2025-06-14 11:43] LABS: HEPATITIS A IGM ANTIBODY Non-Reactive (Nonreactive); HEPATITIS B CORE IGM ANTIBODY Non-Reactive (Negative)
--- NOTE | 2025-06-14 14:49 | PN ---
NEPHROLOGY PROGRESS NOTE Date/Time Patient Seen: Jun 14, 2025 SUBJECTIVE: This is a 69-year-old female past medical history of emphysema peripheral neuropathy, atrial fibrillation and hyperthyroidism who was brought by EMS to the ED for complaints of shortness of breaths,dry cough and generalized body weakness She was found to have endocarditis and respiratory distress. She continues on antibiotics. She remains on diuretics. Hypotension and shock liver has been improved. She has had acute on chronic renal failure while in the hospital. Creatinine has been elevated in the patient is being seen as a follow up visit for all the above Hyponatremia has been improved, she has been encouraged with fluid restriction She remains on midodrine for hypotension. She was seen in the ICU Family at the bedside Prognosis remains guarded REVIEW OF SYSTEMS: GENERAL: Positive for shortness of breath NEUROLOGIC: Negative for any blurry vision, blind spots, double vision, facial asymmetry, dysphagia, dysarthria, hemiparesis, hemisensory deficits, vertigo, ataxia. HEENT: Negative for any head trauma, neck trauma, neck stiffness, photophobia, phonophobia, sinusitis, rhinitis. CARDIAC: Negative for any chest pain, dyspnea on exertion, paroxysmal nocturnal dyspnea, peripheral edema. PULMONARY: Negative for any shortness of breath, wheezing, COPD, or TB exposure. GASTROINTESTINAL: Negative for any abdominal pain, nausea, vomiting, bright red blood per rectum, melena. GENITOURINARY: Negative for any dysuria, hematuria, incontinence. INTEGUMENTARY: Negative for any rashes, cuts, insect bites. RHEUMATOLOGIC: Negative for any joint pains, photosensitive rashes, history of vasculitis or kidney problems. HEMATOLOGIC: Negative for any abnormal bruising, frequent infections or bleeding. PHYSICAL EXAM: GENERAL: Alert and oriented x 3. No acute distress. Well-nourished. EYES: EOMI. Anicteric. HENT: Moist mucous membranes. No scleral icterus. No cervical lymphadenopathy. LUNGS: Clear to auscultation bilaterally. No accessory muscle use. CARDIOVASCULAR: Regular rate and rhythm. No murmur. No JVD. ABDOMEN: Soft, non-tender and non-distended. No palpable masses. EXTREMITIES: No edema. Non-tender. SKIN: No rashes or lesions. Warm. NEUROLOGIC: No focal neurological deficits. CN II-XII grossly intact, but not individually tested. PSYCHIATRIC: Cooperative. Appropriate mood and affect. LABORATORY: [ ] Hematology Labs: Test 06/14/25 04:30 06/13/25 04:13 Range/Units White Blood Count 15.1 H 4.8-10.8 K/uL Red Blood Count 4.13 4.00-5.50 MIL/uL Hemoglobin 10.0 L 12.0-16.0 g/dL Hematocrit 29.9 L 36-48 % Mean Corpuscular Volume 72.4 L 79-99 fL Mean Corpuscular Hemoglobin 24.2 L 27.0-33.0 pg Mean Corpuscular Hemoglobin Concent 33.4 32.0-36.0 g/dL Red Cell Distribution Width 20.4 H 11.0-15.5 % Platelet Count 188 130-400 K/uL Mean Platelet Volume 10.5 7.5-10.5 fL Segmented Neutrophils % 96 H 40-70 % Monocytes % (Manual) 3 2-9 % Nucleated Red Blood Cells 9.1 H 0.0-0.19 % Differential Comment MANUAL DIFFERENTIAL Reactive Lymphocytes 1 H 0-0 % White Cell Morphology Comment See comments Platelet Morphology Comment ADEQUATE Red Blood Cell Morphology MICROCYTIC 1+ Immature Granulocyte % (Auto) 0.7 0-1 % Neutrophils (%) (Auto) 89.6 H 40.0-77.0 % Lymphocytes (%) (Auto) 4.9 L 21.0-51.0 % Monocytes (%) (Auto) 4.7 3.0-13.0 % Eosinophils (%) (Auto) 0.0 0.0-8.0 % Basophils (%) (Auto) 0.1 0.0-5.0 % Neutrophils # (Auto) 17.2 H 1.8-7.7 K/uL Lymphocytes # (Auto) 0.9 L 1.0-4.8 K/uL Monocytes # (Auto) 0.9 0.1-1.0 K/uL Eosinophils # (Auto) 0.00 0.00-0.70 K/uL Basophils # (Auto) 0.02 0.00-0.20 K/uL Absolute Immature Granulocyte (auto 0.14 0-1 K/uL Chemistry Labs: Test 06/14/25 08:48 06/14/25 04:30 06/13/25 11:40 Range/Units Lactic Acid Level 4.6 H 0.8-2.5 mmol/L Sodium Level 137 136-145 mmol/L Potassium Level 3.6 3.5-5.1 mmol/L Chloride Level 102 101-111 mmol/L Carbon Dioxide Level 21 21-32 mmol/L Blood Urea Nitrogen 55 H 7-18 mg/dL Creatinine 1.7 H 0.5-1.0 mg/dL Glomerular Filtration Rate Calc 32 >90 mL/min Random Glucose 208 H 70-105 mg/dL Total Calcium 7.7 L 8.5-10.1 mg/dL Total Bilirubin 2.4 H 0.2-1.0 mg/dL Aspartate Amino Transf (AST/SGOT) 105 H 10-37 U/L Alanine Aminotransferase (ALT/SGPT) 468 H 12-78 U/L Alkaline Phosphatase 95 50-136 U/L C-Reactive Protein, Quantitative 28.70 H 0.5-3.0 mg/L B-Type Natriuretic Peptide 4680 H 0-100 pg/mL Total Protein 5.4 L 6.0-8.3 g/dL Albumin 2.2 L 3.5-5.0 g/dL Procalcitonin 0.19 0.05-0.5 ng/mL Whole Blood Ketones Quantitative 0.4 0.0-0.6 mmol/L Coagulation Labs: Test 06/14/25 08:48 Range/Units Activated Partial Thromboplast Time 79.1 #H 26.3-35.5 SEC DI[facility]NOSTICS / RADIOLOGY: [address] [address] IMAGING REPORT Signed PATIENT: HUGO WYLIE MR#: [id number] : 1955 SEX: F AGE: 69 LOCATION: 2CH ORDER 2300 STATUS: ADM IN REPORT#: [id number] SERVICE 0600 REASON: CHF ORDERING PHYSICIAN: VY FOOTE MD PROCEDURE: CXR1VW - CHEST 1VW EXAM: CR Chest, 1 View. CLINICAL HISTORY: CHF COMPARISON: 06/11/2025 FINDINGS: The right PICC line tip is at the SVC. LUNGS: Interval improvement in the bilateral interstitial and patchy airspace opacities. PLEURAL SPACES: No pleural effusion or pneumothorax. MEDIASTINUM: Mild stable cardiomegaly with pulmonary vascular congestion. BONES: No aggressive appearing osseous lesion seen. Cervical spine fusion hardware. IMPRESSION: 1. Bilateral interstitial and patchy airspace opacities, reduced since the prior study. 2. Mild stable cardiomegaly. 3. Right PICC line tip at the SVC. /[place] DICTATED BY: DARREL GEORGE Jr., MD DATE: 06/12/251035 ELECTRONICALLY SIGNED BY: DARREL GEORGE Jr., MD DATE: 06/12/251035 PATIENT: HUGO WYLIE MR#: [id number] : 1955 SEX: F AGE: 69 LOCATION: 2CH ORDER 1204 STATUS: ADM IN REPORT#: [id number] SERVICE 02 REASON: PICC placement ORDERING PHYSICIAN: VY FOOTE MD PROCEDURE: CXR1VW - CHEST 1VW CHEST 1VW REASON: PICC placement COMPARISON: Prior chest radiograph from 06/08/2025 is available. FINDINGS: Single view of the chest was obtained. There is cardiomegaly. There is diffuse interstitial pulmonary edema. There is a right-sided PIC catheter with tip in distal superior vena cava.. Mediastinum and bony thorax appear unremarkable. There is surgical changes with interpedicular screws and rods in the cervical spine there is anterior cervical disc fusion with orthopedic plate IMPRESSION: 1. The PICC catheter with the tip in the distal superior vena cava in satisfactory position 2. Cardiomegaly with interstitial pulmonary edema DICTATED BY: NARCISO ANTONIO MD DATE: 06/09/258 ELECTRONICALLY SIGNED BY: NARCISO ANTONIO MD DATE: 06/09/25 123 PATIENT: HUGO WYLIE MR#: [id number] : 1955 SEX: F AGE: 69 LOCATION: 2CH ORDER 16 STATUS: ADM IN REPORT#: [id number] SERVICE 0000 REASON: acute chf exacerbation sob ORDERING PHYSICIAN: RIGOBERTO TADEO PROCEDURE: ECHO [facility] - ECHO 2-D COMPLETE APPROVED REPORT EXAM: Two-dimensional and M-mode echocardiogram with Doppler and color Doppler. INDICATION ICD: Acute congestive heart failure, shortness of breath 2D Dimensions RVDd 3.1 cm LVEF(%) 26.1 (>50%) LA ESV INDEX (BP) 35.28 mL/m2 IVSd 1.0 (0.7-1.1cm) FS(%) 12 % LVDd 5.0 (3.8-5.6cm) LA (2D) 4.3 (1.6-4.0cm) PWd 1.0 (0.7-1.1cm) Ao Root(2D) 3.4 (2.0-3.7cm) IVSs 1.0 cm LVOT diam 1.9 (1.8-2.4cm) LVDs 4.4 (2.5-4.0cm) PWs 1.6 cm Aortic Valve AoV Vmax 2.2 m/s Ao Peak GR 18.9 mmHg LVOT Vmax 1.6 m/s AoV VTI 0.3 m Ao Mean GR 9.2 mmHg LVOT VTI 0.24 m PATTIE (VMAX) 2.03 cm2 Al P1/2T 129 ms PATTIE (VTI) 2.0 cm2 Mitral Valve MV E Vmax 144.1 cm/s DECEL Time 105 ms MV A Vmax 82.2 cm/s P 1/2 T 34 ms E/A ratio 1.8 MVA (PHT) 6.5 cm2 TDI E/E' Medial 31.4 E/E' Lateral 15.7 Medial E' Peak V 4.59 cm/s Lateral E' Peak V 9.15 cm/s Pulmonary Valve PV Vmax 1.1 m/s PV Mean GR 2.1 mmHg PV Peak GR 4.6 mmHg Tricuspid Valve TR Vmax 2.1 m/s RAP (EST) 8 mmHg RVSP 26.1 mmHg TR Peak GR 18.1 mmHg Left Ventricle The left ventricle is normal size. There is normal LV segmental wall motion. There is normal left ventricular wall thickness. LVEF is 50-55%. The left ventricular diastolic function is normal. Right Ventricle The right ventricle is normal size. The right ventricular systolic function is normal. Atria The left atrium is mildly dilated. The right atrium is mildly dilated. Aortic Valve Aortic valve is trileaflet and opens well. Difficult to assess severity of aortic insufficiency. Would estimate [id number] Multiple vegetations seen on the aortic valve leafelts. Large Right coronary cusp leaflet vegetation seen protruding into the LVOT. Small non coronary cusp leaflet vegetation seen. Small left coronary cusp leaflet vegetation noted. There is no aortic valvular stenosis. Mitral Valve The mitral valve is normal in structure. There is moderate mitral valve regurgitation noted. There is no mitral valve stenosis. Tricuspid Valve The tricuspid valve is normal in structure. There is no tricuspid valve regurgitation noted. Pulmonic Valve The pulmonary valve is normal in structure. There is mild pulmonic valvular regurgitation. Great Vessels The aortic root is normal in size. IVC is not well visualized. Pericardium There is trivail pericardial effusion seen posteriorly Other Information Quality : Technically challenging study due to body habitus and limited cooperation of pt Conclusion LVEF is 50-55%. LVEF is 50-55%. Multiple vegetations seen on the aortic valve leafelts. Large Right coronary cusp leaflet vegetation seen protruding into the LVOT. Small non coronary cusp leaflet vegetation seen. Small left coronary cusp leaflet vegetation noted. Difficult to assess severity of aortic insufficiency. Would estimate [id number] There is moderate mitral valve regurgitation noted. DICTATED BY: BEN BROWN MD DATE: 06/09/25 0723 ELECTRONICALLY SIGNED BY: BEN BROWN MD DATE: 06/09/25 1314 PATIENT: HUGO WYLIE MR#: [id number] : 1955 SEX: F AGE: 69 LOCATION: EDHIP ORDER 29 STATUS: ADM IN REPORT#: [id number] SERVICE 28 REASON: r/p P.E. ORDERING PHYSICIAN: JOHN NGUYEN PROCEDURE: CHES PE - CT CHEST PE PROTOCOL WWO CONT EXAM: CTA examination of the chest CLINICAL HISTORY: Rule out pulmonary embolism. TECHNIQUE: Postcontrast thin collimated axial CTA images of the chest were obtained with sagittal and coronal reformatted images also submitted. CT scan is done according to ALARA (As Low as Reasonably Achievable). COMPARISON: None provided. FINDINGS: Moderate pleural effusions bilaterally. Compressive atelectasis and consolidations in the bilateral lower lobes of the lung. Multifocal infiltrates and smooth interstitial thickening in the bilateral lung alejandro, reflecting multifocal pneumonia and pulmonary edema. No pneumothorax or masses evident. Small to medium pericardial effusion. Mild to moderate cardiomegaly. Calcific atherosclerotic disease in the thoracic aorta and coronary arteries. No thoracic aortic aneurysm. Dilated pulmonary trunk measures up to 4.4 cm in diameter. Perihilar vascular congestion. No filling defect or pulmonary thromboembolism is evident Mildly reactive mediastinal lymph nodes. Incidental thyroid nodules. Incidental mildly thickened bilateral adrenal glands. Atherosclerotic calcifications in the abdominal vessels. No acute bony abnormality is evident. Degenerative osseous changes. Chronic compression fracture in the T12 vertebral body with about 70% to 80% height reduction. IMPRESSION: No pulmonary thromboembolism. Small to medium pericardial effusion, cardiomegaly, pulmonary vascular congestion, pulmonary edema, and multifocal pneumonia in the bilateral lung alejandro. Moderate pleural effusions bilaterally. Compressive atelectasis and consolidations in the bilateral lower lobes of the lung. Mildly reactive mediastinal lymph nodes. No pneumothorax. Incidental thyroid nodules recommend ultrasound correlation. Incidental mildly enlarged bilateral adrenal glands, recommend a contrast-enhanced MRI of the adrenals for further characterization, if clinically indicated. /[place] DICTATED BY: DARREL GEORGE Jr., MD DATE: 06/09/25155 ELECTRONICALLY SIGNED BY: DARREL GEORGE Jr., MD DATE: 06/09/25155 PATIENT: HUGO WYLIE MR#: [id number] : 1955 SEX: F AGE: 69 LOCATION: [facility] ORDER 51 STATUS: [facility] REPORT#: [id number] SERVICE 49 REASON: SHORTNESS A BREATH ORDERING PHYSICIAN: OLVIN DING PROCEDURE: CXR1VW - CHEST 1VW EXAM: CR Chest, 1 View. CLINICAL HISTORY: SHORTNESS A BREATH COMPARISON: None provided. FINDINGS: There is bilateral perihilar and bibasilar airspace disease that may reflect pulmonary edema. Small bilateral pleural effusions. No pneumothorax. Mild to moderate cardiomegaly and pulmonary vascular congestion. IMPRESSION: 1. Bilateral perihilar and bibasilar airspace disease, possibly representing pulmonary edema, with small bilateral pleural effusions. 2. Mild to moderate cardiomegaly and pulmonary vascular congestion. /[place] DICTATED BY: DARREL GEORGE Jr., MD DATE: 06/08/251949 ELECTRONICALLY SIGNED BY: DARREL GEORGE Jr., MD DATE: 06/08/251949 ASSESSMENT: Hyponatremia Acute on chronic renal failure Acute hypoxic resp failure requiring BIPAP-POA Sepsis 2/2 community acquired pneumonia-POA NSTEMI-likely type II 2/2 demand ischemia from hypoxia vs. true cardiac etiology-POA- negative for chest pain or ST/T wave abnormality. HEART score 6 points=12-16.6% risk for MACE Possible new-onset CHF with exacerbation-POA Hyperlactatemia-POA Acute infectious encephalopathy-POA Suspected new-onset COPD with exacerbation-POA, in the setting of chronic nicotine disorder Pulmonary edema-POA Bilateral pleural effusions-POA Moderate hyponatremia, suspected acute-POA Sleep deprivation 2/2 current illness-POA History of paroxysmal AFib Chronic nicotine disorder: [id number] HX Prior CVA Neck and back surgery Detached retina Hyperthyroid disorder/Graves disease with right thyroid nodule HX of left greater trochanter fracture Medical non-compliance, HX of AMA last hospitalization in [facility] PLAN: Labs, diagnostic, radiologic exams reviewed and interpreted by myself and supervising physician. We have reviewed external records in detail Require close monitoring of renal function and electrolytes Order CBC, CMP, and electrolytes in am Continue with antibiotics BiPAP as necessary, for respiratory distress IV pressors as needed Monitor blood pressure adjust medication doses as needed Avoid hypotensive episodes May use Dilaudid 0.5 mg IV every 6 hours as needed for severe pain Monitor blood sugars Strict intake, output, and daily weight should be monitored Please renally adjust medications Avoid nephrotoxic and nonsteroidal drugs Avoid contrast if possible Will continue to monitor renal function, anemia, electrolytes Treatment plan discussed with patient Questions were answered We have discussed with the other team physicians in detail about the care plan We will continue to monitor the patient closely Total critical care time spent with patient, nursing staff, critical care team over 35 minutes ATTESTATION BY PHYSICIAN I have seen and examined the patient. I reviewed the documentation, medical de cision making, and treatment plan as noted by the mid-level provider above. I agree with the findings and plan of care. FLAVIA METCALF MD, [facility] Jun 14, 2025 14:49
--- NOTE | 2025-06-14 20:37 | HMCSR ---
APPROVED REPORT EXAM: Limited 3D/Two-dimensional echocardiogram with color Doppler. INDICATION ICD: Assess aortic valvular vegetation and assess ejection fraction 2D Dimensions LVED Vol(simp.) 139.0 mL LVES Vol(simp.) 59.0 mL LVEF(%, simp.) 58 % Deformation Strain Apical 4 -14.5 % Apical 2 -19.7 % Apical 3 -19.3 % Global Strain -17.8 % Left Ventricle Left ventricular cavity size is normal. GLS -18.0% There is normal left ventricular wall thickness. LVEF is 55-60%. Aortic Valve Aortic valve is trileaflet and opens well. Multiple vegeations seen on the aortic valve lealfelts. Large RCC leaflet vegetation seen protruding into the LVOT. Small vegetations seen on the LCC/NCC leaflets. No significant changed seen compared to previous echocardiogram. Other Information Quality : Limited/Follow-up
--- NOTE | 2025-06-14 21:19 | PN ---
INFECTIOUS DISEASE PROGRESS NOTE Date of Service: Jun 14, 2025 SUBJECTIVE: This is a 69-year-old female patient who was seen and examined at bedside in room 215. Patient is awake and alert. Still having some difficulty breathing and currently remains on oxygen via Oxymizer at 12 L/min. Denying nausea or vomiting. Patient is afebrile temperature is 97.7 and the WBC is improving down to 15.1 today. We will continue on linezolid, cefepime and doxycycline. PHYSICAL EXAM EYES: Anicteric. Pupils equal and reactive. HENT: No oral thrush seen, moist Oral mucosa. NECK: Supple, no JVD or thyromegaly. LUNGS: Productive cough. Oxygen support. CARDIOVASCULAR: S1, S2 regular. No murmur heard. ABDOMEN: Soft, non tender, bowel sounds present. CENTRAL NERVOUS SYSTEM: Awake, alert, oriented x1. SKIN: No rashes, no swelling. LYMPHATICS: No peripheral lymphadenopathy. MUSCULOSKELETAL: No joint swelling, erythema or tenderness. EXTREMITIES: No cyanosis or clubbing. BACK: No deformity, no pressure ulcer. GENITOURINARY: No dysuria or hematuria. Gonzalez catheter. Vital Sign (Last 12 Hours) 06/14/25 06/14/25 06/14/25 06/14/25 10:00 10:12 11:00 12:00 Temp 97.9 Pulse 79 76 73 75 Resp 21 22 20 22 B/P (MAP) 121/45 119/41 133/53 Pulse Ox 92 92 92 O2 Delivery OXYMIZER OXYMIZER OXYMIZER O2 Flow Rate 12.0 12.0 12.0 06/14/25 06/14/25 06/14/25 06/14/25 12:00 13:00 14:00 14:17 Pulse 71 74 72 Resp 20 17 22 B/P (MAP) 127/54 125/49 Pulse Ox 91 92 93 O2 Delivery N/C Oxymizer Hi LPM* OXYMIZER OXYMIZER O2 Flow Rate 12 12.0 12.0 FiO2 N/A 06/14/25 06/14/25 06/14/25 06/14/25 15:00 16:00 16:00 17:00 Temp 97.9 Pulse 78 74 78 Resp 20 21 20 B/P (MAP) 135/50 131/45 132/51 Pulse Ox 90 94 90 92 O2 Delivery OXYMIZER OXYMIZER N/C Oxymizer Hi LPM* OXYMIZER O2 Flow Rate 12.0 12.0 12 12.0 FiO2 N/A 06/14/25 06/14/25 06/14/25 18:00 18:43 18:43 Pulse 73 72 72 Resp 25 18 18 B/P (MAP) 126/51 Pulse Ox 94 O2 Delivery OXYMIZER N/Cannula Oximizer Hi LPM O2 Flow Rate 12.0 14.0 Intake & Output (last 24hrs) 06/13/25 06/13/25 06/14/25 15:00 23:00 07:00 Intake Total 1119.2 ml 359.2 ml 607.9 ml Output Total 100 ml 350 ml 550 ml Balance 1019.2 ml 9.2 ml 57.9 ml LABS: Laboratory: Test 06/14/25 18:10 06/14/25 10:09 06/14/25 08:48 06/14/25 04:30 Range/Units Activated Partial Thromboplast Time 65.7 H 26.3-35.5 SEC Blood Gas Specimen Type Arterial Arterial Blood pH 7.416 7.350-7.450 Arterial Blood Partial Pressure CO2 29 L 32-45 mmHg Arterial Blood Partial Pressure O2 52.4 L 83.0-108.0 mmHg Arterial Blood HCO3 18.0 L 21.0-28.0 mmol/L Arterial Blood Oxygen Saturation 88.2 L 94.0-98.0 % Arterial Blood Base Excess -5.0 L -2.0-3.0 mmol/L Blood Gas Temperature 37.0 35.5-37.0 CELSIUS Blood Gas Flow-by 12.00 0.00-15.00 L/min Blood Gas Vent Mode OXIMIZER 12L ROOM AIR FiO2 60.0 % Blood Gas Specimen Comment RR, ZACHERY,RN Lactic Acid Level 4.6 H 0.8-2.5 mmol/L White Blood Count 15.1 H 4.8-10.8 K/uL Red Blood Count 4.13 4.00-5.50 MIL/uL Hemoglobin 10.0 L 12.0-16.0 g/dL Hematocrit 29.9 L 36-48 % Mean Corpuscular Volume 72.4 L 79-99 fL Mean Corpuscular Hemoglobin 24.2 L 27.0-33.0 pg Mean Corpuscular Hemoglobin Concent 33.4 32.0-36.0 g/dL Red Cell Distribution Width 20.4 H 11.0-15.5 % Platelet Count 188 130-400 K/uL Mean Platelet Volume 10.5 7.5-10.5 fL Segmented Neutrophils % 96 H 40-70 % Monocytes % (Manual) 3 2-9 % Nucleated Red Blood Cells 9.1 H 0.0-0.19 % Differential Comment MANUAL DIFFERENTIAL Reactive Lymphocytes 1 H 0-0 % White Cell Morphology Comment See comments Platelet Morphology Comment ADEQUATE Red Blood Cell Morphology MICROCYTIC 1+ Sodium Level 137 136-145 mmol/L Potassium Level 3.6 3.5-5.1 mmol/L Chloride Level 102 101-111 mmol/L Carbon Dioxide Level 21 21-32 mmol/L Blood Urea Nitrogen 55 H 7-18 mg/dL Creatinine 1.7 H 0.5-1.0 mg/dL Glomerular Filtration Rate Calc 32 >90 mL/min Random Glucose 208 H 70-105 mg/dL Total Calcium 7.7 L 8.5-10.1 mg/dL Total Bilirubin 2.4 H 0.2-1.0 mg/dL Aspartate Amino Transf (AST/SGOT) 105 H 10-37 U/L Alanine Aminotransferase (ALT/SGPT) 468 H 12-78 U/L Alkaline Phosphatase 95 50-136 U/L C-Reactive Protein, Quantitative 28.70 H 0.5-3.0 mg/L B-Type Natriuretic Peptide 4680 H 0-100 pg/mL Total Protein 5.4 L 6.0-8.3 g/dL Albumin 2.2 L 3.5-5.0 g/dL Procalcitonin 0.19 0.05-0.5 ng/mL Test 06/13/25 11:40 06/13/25 04:13 Range/Units Whole Blood Ketones Quantitative 0.4 0.0-0.6 mmol/L Immature Granulocyte % (Auto) 0.7 0-1 % Neutrophils (%) (Auto) 89.6 H 40.0-77.0 % Lymphocytes (%) (Auto) 4.9 L 21.0-51.0 % Monocytes (%) (Auto) 4.7 3.0-13.0 % Eosinophils (%) (Auto) 0.0 0.0-8.0 % Basophils (%) (Auto) 0.1 0.0-5.0 % Neutrophils # (Auto) 17.2 H 1.8-7.7 K/uL Lymphocytes # (Auto) 0.9 L 1.0-4.8 K/uL Monocytes # (Auto) 0.9 0.1-1.0 K/uL Eosinophils # (Auto) 0.00 0.00-0.70 K/uL Basophils # (Auto) 0.02 0.00-0.20 K/uL Absolute Immature Granulocyte (auto 0.14 0-1 K/uL DIAGNOSTICS / RADIOLOGY: PATIENT: HUGO WYLIE ACCT: [id number] LOC: [facility] U: [id number] AGE/SX: 69/F ROOM: [facility] RE06/08/[address]: MARY HARRIS MD : 1955 BED: 1 DIS: STATUS: ADM IN TLOC: ---- -------- SPEC: [id number] MEHREEN: 06/08/25 STATUS: COMP REQ: [id number] RECD: 06/12/25-[address]: OLVIN DINGP SOURCE: BLOOD ENTR: 06/12/25-1453 [facility] DR: ARTURO GONSALVES MD SPDESC: BLOOD SELF,REFERRAL ORDERED: AERO ID & SENS Procedure Result Umer Date-Time AEROBIC ID & SENSITIVITIES Final 06/14/25-1120 MRL COLONY DESCRIPTION: DAY 1: GRAM POSITIVE COCCI IN CHAINS IDENTIFICATION TO FOLLOW AEROBIC BOTTLE COM: NO NCCLS SUSCEPTIBILITY PROCEDURES COM: AVAILABLE FOR THIS ORGANISM GEMELLA MORBILLORUM ASSESSMENT: Hypoxic respiratory failure, requiring oxygen support. Multifocal pneumonia. Aortic valve Endocarditis. Sepsis. Gram positive bacteremia, possible a contaminant. Acute renal failure. Multifactorial encephalopathy, improving. Chronic obstructive pulmonary disease exacerbation. Chronic tobacco use. Atrial fibrillation. PLAN: Continue linezolid IV. Continue cefepime. Continue doxycycline. Continue GI prophylaxis. Continue bronchodilators. Continue oxygen support. Monitor renal function. This case was reviewed and discussed with my supervising physician Dr. Boyce and the above assessment and plan was formulated and agreed upon. ATTESTATION BY PHYSICIAN I have seen and examined the patient. I reviewed the documentation, medical decision making, and treatment plan as noted by the mid-level provider above. I agree with the findings and plan of care. RIKY BOYCE MD, [facility] Jun 14, 2025 21:19
--- NOTE | 2025-06-14 21:53 | HMCIMG ---
EXAM: CR CHEST, 1 VIEW CLINICAL HISTORY: pulmonary congestion ,CHF COMPARISON: CR: CHEST 1VW dated 06/12/2025 06:14 AM EST: TECHNIQUE: Single frontal radiograph of the chest was obtained. FINDINGS: Lines/Devices: A right PICC is present with its tip seen at the proximal part of the superior vena cava. Lungs: Progressive course as regards the previously noted bilateral interstitial and patchy airspace opacities., more evident at the lower lobes. Newly developed blunted left costophrenic angle suggestive of a mild left pleural effusion. There is no pneumothorax. Mediastinum and cardiovascular structures: The cardiac silhouette is mildly enlarged. Prominent aortic knuckle is noted. The central airway and mediastinal contours are otherwise unremarkable. Bones and soft tissues: Evidence of fixation of the lower cervical spine is noted. Soft tissues are unremarkable. IMPRESSION: 1. Progressive bilateral bilateral interstitial and patchy airspace opacities, more evident at the lower lobes. 2. Newly developed blunted left costophrenic angle suggestive of a mild left pleural effusion. 3. Mild cardiomegaly. 4. Stable prominent aortic knuckle. 5. As compared to the CR: CHEST 1VW dated 06/12/2025 06:14 AM EST: , progressive course as regards the previously noted bilateral interstitial as well as patchy pulmonary opacities,stationary course as regards the cardiomegaly. Right PICC still seen in situ. Newly developed minimal left pleural effusion. /[place]
[2025-06-15] VITALS (39 sets, daily range): BP systolic 116–142; BP diastolic 40–83; PULSE 75–98; RESP 11–34; TEMP 97.9–98.2; O2SAT 90–96
[2025-06-15 03:34] LABS: ABG BASE EXCESS -4.4 mmol/L (-2.0-3.0); ABG HCO3 18.9 mmol/L (21.0-28.0); ABG OXYGEN SATURATION 91.9 % (94.0-98.0); ABG PCO2 31 mmHg (32-45); ABG PH 7.411 (7.350-7.450); PO2, ARTERIAL BG 60.8 mmHg (83.0-108.0); TEMPERATURE, CELSIUS BG 37.0 CELSIUS (35.5-37.0)
[2025-06-15 06:36] LABS: IMMATURE GRANULOCYTE ABSOLUTE 0.20 K/uL (0-1); NUCLEATED RED BLOOD CELLS 10.0 % (0.0-0.19); PLATELET COUNT (AUTO) 149 K/uL (130-400); RED BLOOD CELL COUNT(AUTO) 4.23 MIL/uL (4.00-5.50); RED CELL DISTRIBUTION WIDTH 20.7 % (11.0-15.5); WHITE BLOOD COUNT (AUTO) 15.8 K/uL (4.8-10.8)
[2025-06-15 06:39] LABS: ASPARTATE AMINOTRANSFERASE 85.0 U/L (10-37); CREATININE 1.9 mg/dL (0.5-1.0); GLOMERULAR FILTR. RATE CALC 28.0 mL/min (>90); GLUCOSE,RANDOM 155.0 mg/dL (70-105); PHOSPHORUS 5.1 mg/dL (2.5-4.9); SODIUM SERUM 137.0 mmol/L (136-145); TOTAL PROTEIN, SERUM 5.4 g/dL (6.0-8.3)
[2025-06-15 06:42] LABS: UREA NITROGEN, BLOOD 77.0 mg/dL (7-18)
[2025-06-15 07:14] LABS: CHLAM.PNEUMONIAE IGM TITER <1:10 (Neg:<1:10)
[2025-06-15 07:18] LABS: LYMPHOCYTES % (MANUAL) 4 % (22-44); MONOCYTES % (MANUAL) 2 % (2-9); SEGMENTED NEUTROPHILS % 94 % (40-70)
[2025-06-15 07:19] LABS: MAN.DIFF COMMENT-IMPRESSION MANUAL DIFFERENTIAL; PLATELET MORPHOLOGY COMMENT ADEQUATE; WBC MORPHOLOGY VACUOLATION 1+
--- NOTE | 2025-06-15 08:27 | NUR ---
Patient has scheduled Midodrine, Lopressor and amio, verified with DIETARY SERVICES MANAGER Yoni Loera if okay to hold the Lopressor and the midodrine due to patients blood pressure has been on the higher side 120s 130s and HR in the 80s. Said okay to hold midodrine and Lopressor.
--- NOTE | 2025-06-15 09:50 | PN ---
[facility] PROGRESS NOTE Date of Service: Jun 15, 2025 Time of Service: 09:50 SUBJECTIVE: HISTORY OF PRESENT ILLNESS: This is a 69-year-old female past medical history of emphysema peripheral neuropathy, atrial fibrillation and hyperthyroidism who was brought by EMS to the ED for complaints of shortness of breaths,dry cough and generalized body weakness which started for the past 3 weeks and getting worse this past few days.Patient reports she lives alone and a current heavy cigarette smoker 1 pack/day.As per patient she has been going to her PCP every week x 3 weeks and was started on steroids prednisone and inhaler and patient also reports was admitted for having atrial fibrillation last 05/09/25 and was seen by at [facility] [place]. Patient reports has not seen a rn pacu.Patient complaints of chest tightness with dry cough for the past 3 weeks but has not improved and its getting worse so she decided to come to the ED .On further evaluation ,patient was asked by the undersigned if it come to appoint where she needs to be orally intubated and patient states she is okay and in the meantime she wants to try th e Bipap. Seen and examined patient in the ER awake,alert and appears very short of breath,she has a friend at bedside and helping her from time to time with medical history as patient appears anxious as well.Patient denies chest pain,palpitation,nausea,vomiting and fever. Latest vital signs temperature 98.1, heart rate 110, respiration 35, blood pressure 140/56 saturation 96 on B iPAP 40% FiO2. Labs: WBC 19 with negative left shift of neutrophils 84, hemoglobin 9, hematocrit 30, platelet count 386. Sodium 122, chloride 93, CO2 18, BUN 23, glucose 140, lactic acid 3.1 troponin 112 BNP 3370. D-dimer 3746, PT 15, INR 1.4 PTT 28. Influenza type a and B negative SARS COVID negative. Chest x-ray result revealed bilateral perihilar and bibasilar airspace disease possibly representing pulmonary edema with small bilateral pleural effusion. [id number] cardiomegaly and pulmonary vascular congestion. While in the ER patient received Solu-Medrol 125 mg IV, albuterol two unit dose via inhalation, levofloxacin 750 mg IV, Protonix 40 mg, NS 500 mL bolus, Lasix 80 mg IV and morphine 2 mg IV. Patient was started on Precedex per ICU radha mmendation. Admit patient for further medical management. 06/09/2025: The patient was seen and evaluated bedside in ICU, no family at bedside. Patient is agitated, anxious on max doses of Precedex, saturating 100% with FiO2 60 on BiPAP. Patient is currently on norepinephrine drip 0.05 mcg/mL/kg and heparin drip q.[address] chest showed no pulmonary thromboembolism, small to medium pericardial effusion, cardiomegaly, pulmonary vascular congestion, pulmonary edema and multifocal pneumonia in bilateral lung alejandro. Continue Zosyn, doxycycline, IV Lasix, Solu-Medrol IV. Morning lab showed white count 17.4, sodium 124, bicarb 14, lactic acid 3.7, troponin 178, BNP 3060, AST 1479, ALT 561. Patient has bicarb deficit of 336, we ordered sodium bicarbonate 100 mEq single dose and we will repeat bicarb this evening. Nephrology, Cardiology, critical Care on board we will continue to follow the recommendations. 06/10/2025: The patient was seen and evaluated bedside in ICU, no family at bedside. Patient is currently on Precedex, norepinephrine drip. Abdominal ultrasound showed focal edematous wall thickening of gallbladder with minimal pericholecystic fluid, recommended HIDA scan if there is persistent clinical concern for cholecystitis. Lab showed white count trending down to 17.1, lactic acid trending down to 3, AST 3143, ALT 1515. Zosyn has been discontinued by Infectious Disease, patient was started on cefepime and vancomycin. Cardiology recommended transesophageal echocardiography once the patient become more stable. 06/11/2025: The patient was seen and evaluated bedside in ICU, no family at bedside. Patient is currently on one-to-one sitter. Patient continues to be on Precedex, norepinephrine, heparin drip. Morning lab shows white count 22.3, sodium 135, potassium 3.1, BUN 52, creatinine 1.5, fibrinogen 265, lactic acid trended down to 2, AST trended down to 946, ALT trended down to 1026. Blood culture shows no growth so far. Continue IV antibiotics as recommended by Infectious Disease. 06/12/2025: Patient was evaluated bedside in room 215 and several family members were present at the bedside. Patient also has 2 on 1 sitter. Patient was awake and alert but is mildly confused. Patient is still recovering from sepsis from community-acquired pneumonia and her white count remained stable at 22.4k. Patient oxygenating well via high-flow nasal cannula Oxymizer with flow rate of 5 L. Still continues on amiodarone drip due to AFib with telemetry consistent with Afib. Patient is still pending a HIDA scan and VICK due to her respiratory status. We will continue linezolid, cefepime and doxycycline and start to taper methylprednisolone as per critical Care recommendations. 06/13/2025: Patient was seen and evaluated in room 215, no family at bedside. Patient is awake, alert, oriented x3, saturating 96 % with Oxymizer. Patient says that she is feeling better, denies any new or worsening symptoms. Cardiology recommended discontinuing amiodarone drip, started patient on amiodarone 200 mg twice daily. Labs show white count trending down to 19.2, BNP trending down to 3180, AST trending down to 193, ALT trending down to 608. We w ill continue linezolid, cefepime, metronidazole and doxycycline. 06/14/2025: Patient was seen and evaluated in room 215, no family at bedside. Patient is awake, alert, saturating 90% with 10L nasal cannula. Morning labs show white count trending down to 15.1, BUN 55, creatinine 1.7, BNP 4680, lactic acid 4.6, AST trending down to 105, ALT trending down to 468. We will order li mited echocardiogram to check for aortic valve vegetations and ejection fraction. Continue oral amiodarone, Lasix, Solu-Medrol, linezolid, cefepime, metronidazole, doxycycline. Plan for VICK as per cardiology. Cardiology, Infectious Disease on board we will continue to follow their recommendations. 06/15/2025: Patient was seen and evaluated in room 215, no family at bedside. Patient is awake, alert, saturating 96% with high-flow nasal cannula. Morning labs show BNP 4530, BUN 77, creatinine 1.9, white count 15.8. Limited echocardiogram was done which shows LVEF 55-60%, multiple vegetations on aortic valve leaflets. IV Lasix has been increased to 40 mg Q 8 by critical care team. Cardiology recommended discontinuing midodrine, heparin drip and patient was started on Lovenox. Continue oral amiodarone, Lasix, Solu-Medrol, linezolid, cefepime, metronidazole, doxycycline. Plan for VICK as per cardiology. Cardiology, Infectious Disease on board we will continue to follow their recommendations. REVIEW OF SYSTEMS CONSTITUTIONAL: Denies fevers, chills, or night sweats. No unintentional weight loss reported. NEUROLOGICAL: Denies headache, amaurosis fugax, motor weakness, sensory deficit, vertigo/spinning sensation, gait abnormalities, or tremors. ENT: No hearing loss, otalgia, otorrhea, rhinitis, rhinorrhea, hoarseness, or sore throat. CARDIOVASCULAR: Denies any exertional angina, dyspnea on exertion, orthopnea, paroxysmal nocturnal dyspnea, palpitations, life-threatening arrhythmias, claudication. PULMONARY: Complaints of shortness of breaths, dry cough and chest tightness x3 weeks Denies phlegm/sputum, hemoptysis, pleuritic chest pain. SLEEP: Denies morning headaches, daytime somnolence or napping. Denies diff iculty falling asleep, staying asleep, waking from sleep. Denies knowledge of snoring. GASTROINTESTINAL: Denies any type of dysphagia to either liquids or solids. Denies nausea, vomiting, pyrosis, early satiety, abdominal pain, diarrhea, constipation, or changes in stool consistency or caliber. Denies coffee-ground emesis, hematemesis, hematochezia, or melanotic stools. GENITOURINARY: Denies frequency, urgency, nocturia, hematuria or incontinence (Storage/Irritative symptoms.) Low urinary stream, straining to void, urinary intermittency or hesitancy, splitting of the voiding stream, terminal dribbling. ENDOCRINOLOGIC: Denies polyuria, polydipsia, polyphagia or heat/cold in tolerances. HEMATOLOGIC: Denies thrombophilia/previous clots, or coagulopathy/bleeding disorders. ONCOLOGIC: Denies personal history of malignancy. DERMATOLOGIC: Denies rashes or pruritus. PSYCHIATRIC: Denies any suicidal or homicidal ideation. Denies hallucinations. PHYSICAL EXAM GENERAL APPEARANCE: The patient is awake, alert, and oriented to self but not to place and time ,moderate respiratory distress NEUROLOGICAL: Cranial nerves II-XII grossly intact. Motor is 5/5 in bilateral upper and lower extremities proximal to distal. No sensory deficits. HEENT: Face is symmetric. Pupils are equal and reactive. Extraocular movements are intact. NECK: Supple. No JVD. No thyromegaly. No submental, submandibular, pre- /postauricular, occipital or supraclavicular lymphadenopathy. CHEST: Normal chest expansion. No Telemetry. LUNGS: tachypneic, with NC via Oxymizer CARDIOVASCULAR: Tachycardic Regular. S1 and S2 normal. No appreciable rubs, murmurs or gallops. ABDOMEN: Soft, nontender, and nondistended. There is no rebound, voluntary guarding, or rigidity. : Deferred. Gonzalez. EXTREMITIES: Non-edematous and not cyanotic. No clubbing. Good capillary refill. SKIN: No skin breakdown. Vital Signs (last 8hr) Date Time Temp Pulse Resp B/P (MAP) Pulse Ox O2 Delivery O2 Flow Rate FiO2 06/15/25 08:00 98.2 84 20 128/42 93 N/C High Flow System 06/15/25 08:00 90 Hi-Flow N/C+ 30 55 06/15/25 06:42 83 20 HFNC Heated System N/Can 25.0 60 06/15/25 06:38 83 20 06/15/25 06:37 84 17 138/58 (84) 96 06/15/25 05:37 78 22 128/42 (70) 92 06/15/25 04:38 79 20 122/43 (69) 91 06/15/25 04:00 92 Hi-Flow N/C+ 30 55 06/15/25 04:00 98.1 06/15/25 03:37 77 22 129/40 (69) 90 06/15/25 03:30 75 22 HFNC Heated System N/Can 25.0 55 06/15/25 02:37 79 34 123/50 (74) 95 LABS: Laboratory: Test 06/15/25 06:15 06/15/25 03:24 06/15/25 00:36 06/14/25 08:48 Range/Units White Blood Count 15.8 H 4.8-10.8 K/uL Red Blood Count 4.23 4.00-5.50 MIL/uL Hemoglobin 10.3 L 12.0-16.0 g/dL Hematocrit 30.6 L 36-48 % Mean Corpuscular Volume 72.3 L 79-99 fL Mean Corpuscular Hemoglobin 24.3 L 27.0-33.0 pg Mean Corpuscular Hemoglobin Concent 33.7 32.0-36.0 g/dL Red Cell Distribution Width 20.7 H 11.0-15.5 % Platelet Count 149 130-400 K/uL Mean Platelet Volume 10.5 7.5-10.5 fL Immature Granulocyte % (Auto) 1.3 H 0-1 % Neutrophils (%) (Auto) 89.3 H 40.0-77.0 % Lymphocytes (%) (Auto) 2.2 L 21.0-51.0 % Monocytes (%) (Auto) 7.1 3.0-13.0 % Eosinophils (%) (Auto) 0.0 0.0-8.0 % Basophils (%) (Auto) 0.1 0.0-5.0 % Neutrophils # (Auto) 14.1 H 1.8-7.7 K/uL Lymphocytes # (Auto) 0.4 L 1.0-4.8 K/uL Monocytes # (Auto) 1.1 H 0.1-1.0 K/uL Eosinophils # (Auto) 0.00 0.00-0.70 K/uL Basophils # (Auto) 0.02 0.00-0.20 K/uL Absolute Immature Granulocyte (auto 0.20 0-1 K/uL Segmented Neutrophils % 94 H 40-70 % Lymphocytes % (Manual) 4 L 22-44 % Monocytes % (Manual) 2 2-9 % Nucleated Red Blood Cells 10.0 H 0.0-0.19 % Differential Comment MANUAL DIFFERENTIAL White Cell Morphology Comment VACUOLATION 1+ Platelet Morphology Comment ADEQUATE Red Blood Cell Morphology See comments Sodium Level 137 136-145 mmol/L Potassium Level 4.0 3.5-5.1 mmol/L Chloride Level 104 101-111 mmol/L Carbon Dioxide Level 20 L 21-32 mmol/L Blood Urea Nitrogen 77 *H 7-18 mg/dL Creatinine 1.9 H 0.5-1.0 mg/dL Glomerular Filtration Rate Calc 28 >90 mL/min Random Glucose 155 H 70-105 mg/dL Total Calcium 7.6 L 8.5-10.1 mg/dL Phosphorus Level 5.1 H 2.5-4.9 mg/dL Magnesium Level 2.30 1.80-2.40 mg/dL Total Bilirubin 3.6 H 0.2-1.0 mg/dL Aspartate Amino Transf (AST/SGOT) 85 H 10-37 U/L Alanine Aminotransferase (ALT/SGPT) 369 H 12-78 U/L Alkaline Phosphatase 98 50-136 U/L B-Type Natriuretic Peptide 4530 H 0-100 pg/mL Total Protein 5.4 L 6.0-8.3 g/dL Albumin 2.3 L 3.5-5.0 g/dL Blood Gas Specimen Type Arterial Arterial Blood pH 7.411 7.350-7.450 Arterial Blood Partial Pressure CO2 31 L 32-45 mmHg Arterial Blood Partial Pressure O2 60.8 L 83.0-108.0 mmHg Arterial Blood HCO3 18.9 L 21.0-28.0 mmol/L Arterial Blood Oxygen Saturation 91.9 L 94.0-98.0 % Arterial Blood Base Excess -4.4 L -2.0-3.0 mmol/L Blood Gas Temperature 37.0 35.5-37.0 CELSIUS Blood Gas Flow-by 14.00 0.00-15.00 L/min Blood Gas Vent Mode RR 14L OXYMIZER ROOM AIR FiO2 76.0 % Blood Gas Specimen Comment ARABELLA TOMLIN Activated Partial Thromboplast Time 55.5 H 26.3-35.5 SEC Lactic Acid Level 4.6 H 0.8-2.5 mmol/L Test 06/14/25 04:30 06/13/25 11:40 Range/Units Reactive Lymphocytes 1 H 0-0 % C-Reactive Protein, Quantitative 28.70 H 0.5-3.0 mg/L Procalcitonin 0.19 0.05-0.5 ng/mL Whole Blood Ketones Quantitative 0.4 0.0-0.6 mmol/L Current Medications Medications (Trade) Dose Ordered Sig/Rossy Route PRN Reason Start Time Stop Time Status Last Admin Dose Admin Acetaminophen (TYLenol 325MG TAB) 650 mg Q4H PRN PO MILD PAIN (1-3) 06/08/25 20:30 07/08/25 20:29 06/12/25 10:16 650 MG Acetaminophen (TYLenol 325MG TAB) 650 mg Q6H PRN PO TEMPERATURE GREATER THAN 101.5 06/08/25 20:30 07/08/25 20:29 06/12/25 20:47 650 MG Albuterol (DUOneb) 1 udvial [id number] IH 06/08/25 22:00 07/08/25 21:59 06/15/25 06:37 1 UDVIAL Amiodarone HCl (pacERONE 200MG) 200 mg BID PO 06/13/25 21:00 07/13/25 20:59 06/15/25 08:36 200 MG Amiodarone HCl 540 mg/Dextrose 300 ml @ 16.667 mls/ hr PROTOCOL IV 06/12/25 10:00 06/13/25 03:59 DC 06/12/25 11:33 16.667 MLS/HR Amiodarone HCL/ Dextrose 100 ml @ 600 mls/hr PROTOCOL IV 06/12/25 05:00 06/12/25 06:53 DC 06/12/25 05:10 600 MLS/HR Amiodarone HCL/ Dextrose 100 ml @ 0 mls/hr PROTOCOL IV 06/12/25 07:00 06/12/25 07:01 DC Amiodarone HCL/ Dextrose 200 ml @ 33.333 mls/ hr PROTOCOL IV 06/12/25 05:00 06/12/25 06:53 DC 06/12/25 05:11 33.333 MLS/HR Budesonide (Pulmicort 0.5 Mg/2ml) 0.5 mg BIDRESP 06/09/25 18:00 07/09/25 17:59 06/15/25 06:37 0.5 MG Cefepime HCl (MAXipime 1 GM vial) 1 gm Q12H IVPB 06/10/25 14:00 06/10/25 14:35 DC 06/10/25 14:23 1 GM Cefepime HCl (MAXipime 1 GM vial) 1 gm Q12H9 IVPB 06/10/25 21:00 06/24/25 13:59 06/15/25 08:36 1 GM Cefepime HCl (MAXipime 1 GM vial) 1 gm Q8H IVPB 06/10/25 09:30 06/10/25 09:41 DC Dexmedetomidine/ Sodium Chloride (PRECEdex 400MCG/ 100ML-NS) 400 mcg PROTOCOL IV 06/08/25 20:00 06/11/25 17:00 DC 06/11/25 09:27 400 MCG Dorzolamide/ Timolol (Cosopt Eye Drops) 1 DROP BID OP 06/09/25 21:00 07/09/25 20:59 06/15/25 08:37 1 ML Doxycycline Hyclate 250 ml @ 125 mls/hr Q12H IV 06/08/25 23:00 06/18/25 22:59 06/14/25 23:30 125 MLS/HR Famotidine (Pepcid 20mg Vial) 20 mg DAILY IV 06/09/25 09:00 06/09/25 13:09 DC 06/09/25 08:39 20 MG Fluticasone Propionate (FLOnase 50 mcg/ spray 16g bottle) 1 SPRAY DAILY EN 06/12/25 15:00 07/12/25 14:59 06/15/25 08:38 1 SPRAYS Furosemide (LASix 20MG VIAL) 20 mg BID IVP 06/12/25 09:00 06/12/25 09:19 DC 06/12/25 08:57 20 MG Furosemide (LASix 40MG VIAL) 20 mg BID IVP 06/11/25 21:00 06/12/25 06:54 DC 06/11/25 21:26 20 MG Furosemide (LASix 40MG VIAL) 40 mg BID IVP 06/08/25 21:00 06/11/25 17:00 DC 06/11/25 09:32 40 MG Furosemide (LASix 40MG VIAL) 40 mg BID IVP 06/12/25 21:00 06/14/25 13:19 DC 06/14/25 08:24 40 MG Furosemide (LASix 40MG VIAL) 40 mg Q8H6 IVP 06/14/25 14:00 07/12/25 20:59 06/15/25 05:37 40 MG Heparin Sodium (Porcine) (HEParin 5,000 UNIT VIAL) *calculation based on ACTUAL B... AD PRN IV HEPARIN PROTOCOL 06/09/25 04:00 07/09/25 03:59 Heparin Sodium/ Dextrose 250 ml @ 0 mls/hr Q6H IV 06/09/25 04:00 07/09/25 03:59 06/15/25 02:42 4.7 MLS/HR Home Med (Home Medication) (Methimazole 5MG TAB) - 0.5 TAB... DAILY PO 06/10/25 09:00 07/10/25 08:59 06/15/25 08:38 1 EACH Lactulose (Constulose 20gm/ 30ml Udcup) 20 gm BID PRN PO CONSTIPATION 06/13/25 07:30 07/13/25 07:29 Latanoprost (Xalatan) 1 DROP HS OD 06/09/25 21:00 07/09/25 20:59 06/14/25 21:15 1 DROP Levofloxacin/ Dextrose 100 ml @ 100 mls/hr Q24H IV 06/09/25 20:00 06/08/25 22:40 DC Linezolid 300 ml @ 150 mls/hr Q12H IV 06/11/25 11:30 06/11/25 12:38 DC Linezolid 300 ml @ 150 mls/hr Q12H IV 06/11/25 14:30 06/21/25 14:29 06/15/25 02:39 150 MLS/HR Magnesium Sulfate 50 ml @ 0 mls/hr PROTOCOL PRN IV MAGNESIUM PROTOCOL 06/09/25 17:00 07/09/25 16:59 06/12/25 03:21 25 MLS/HR Methylprednisolone Sodium Succinate (Solu-medROL 40MG) 40 mg Q12H9 IVP 06/12/25 21:00 07/09/25 13:29 06/15/25 08:36 40 MG Methylprednisolone Sodium Succinate (Solu-medROL 40MG) 40 mg Q8H IVP 06/09/25 13:30 06/12/25 14:11 DC 06/12/25 13:23 40 MG Metoprolol Tartrate (loprESSOR) 2.5 mg Q6H PRN IV heart rate greater than 110 06/12/25 03:30 07/12/25 03:29 Metoprolol Tartrate (loprESSOR) 25 mg BID PO 06/12/25 21:00 07/12/25 20:59 06/14/25 21:14 25 MG Metronidazole/ Sodium Chloride 100 ml @ 100 mls/hr Q8H6 IVPB 06/10/25 14:00 06/20/25 13:59 06/15/25 05:36 100 MLS/HR Midodrine (PROAMatine 5 MG TABLET) 5 mg TID PO 06/10/25 14:00 06/11/25 08:52 DC 06/10/25 20:08 5 MG Midodrine (PROAMatine 5 MG TABLET) 10 mg TID PO 06/11/25 09:00 07/11/25 08:59 06/14/25 21:14 10 MG Nicotine (Nicoderm) 21 mg DAILY TD 06/08/25 23:00 07/08/25 22:59 06/15/25 08:37 21 MG Norepinephrine 250 ml @ 0 mls/hr PROTOCOL IV 06/09/25 01:00 07/09/25 00:59 06/11/25 10:05 6.75 MLS/HR Olanzapine (ZyPREXA 5 mg tab) 5 mg BID PO 06/10/25 21:00 07/10/25 20:59 06/15/25 08:36 5 MG Ondansetron HCl (zoFRAN 4MG INJ) 4 mg Q6H PRN IV NAUSEA/VOMITING 06/08/25 20:30 07/08/25 20:29 Oseltamivir Phosphate (Tamiflu) 75 mg BID PO 06/09/25 21:00 06/10/25 09:08 DC 06/10/25 09:03 75 MG Pantoprazole Sodium (PROTonix 40MG INJ) 40 mg DAILY IVP 06/10/25 09:00 07/10/25 08:59 06/15/25 08:36 40 MG Pharmacy Profile Note (Pharmacy Communication) 1 each ONCE MIS 06/09/25 03:00 06/09/25 03:24 DC Pharmacy Profile Note (Pharmacy Communication) 1 each ONCE MISC 06/11/25 11:30 06/11/25 11:19 DC Phytonadione (Vitamin K 10mg/ 1ml Adult Vial) 10 mg DAILY SQ 06/11/25 09:00 06/13/25 15:00 DC 06/13/25 09:24 10 MG Phytonadione (Vitamin K 10mg/ 1ml Adult Vial) 10 mg Q24H SQ 06/10/25 15:00 06/10/25 16:55 DC 06/10/25 15:11 10 MG Piperacillin Sod/ Tazobactam Sod (Zosyn 3.375gm+NS 50ml) 3.375 gm Q8H IV 06/08/25 23:00 06/10/25 09:08 DC 06/10/25 07:10 3.375 GM Potassium Chloride 100 ml @ 50 mls/hr AD PRN IV POTASSIUM PROTOCOL 06/09/25 17:00 06/11/25 06:10 DC 06/09/25 21:18 50 MLS/HR Potassium Chloride 100 ml @ 100 mls/hr AD PRN IV POTASSIUM PROTOCOL 06/09/25 17:00 07/09/25 16:59 06/14/25 05:36 100 MLS/HR Potassium Chloride (K-Dur/Klor-Con 20meq) 20 meq AD PRN PO POTASSIUM PROTOCOL 06/09/25 17:00 07/09/25 16:59 Potassium Chloride (KCl 10% Elixir 20meq/15ml) 20 meq AD PRN PO POTASSIUM PROTOCOL 06/09/25 17:00 07/09/25 16:59 Sodium Bicarbonate 150 meq/Sodium Chloride 1,150 ml @ 100 mls/hr [id number] IVP 06/09/25 12:00 06/09/25 12:29 DC Sodium Bicarbonate (Sodium Bicarbonate) 650 mg BID PO 06/13/25 11:30 06/13/25 11:58 DC Sodium Bicarbonate (Sodium Bicarbonate) 1,300 mg BID PO 06/13/25 21:00 07/13/25 20:59 06/15/25 08:36 1,300 MG Vancomycin HCl 250 ml @ 125 mls/hr Q24H IV 06/11/25 10:00 06/11/25 11:15 DC 06/11/25 09:31 125 MLS/HR Vancomycin HCl (Vancomycin Protocol) 1 each AD IV 06/10/25 09:30 06/11/25 11:15 DC Ziprasidone (Geodon) 10 mg Q6H PRN IM AGITATION/PSYCHOSIS 06/09/25 18:00 07/09/25 17:59 06/11/25 17:28 10 MG DIAGNOSTICS / RADIOLOGY: [ ] [place] [address] [address] IMAGING REPORT Signed PATIENT: HUGO WYLIE MR#: [id number] : 1955 SEX: F AGE: 69 LOCATION: 2CH ORDER 1126 STATUS: ADM IN REPORT#: [id number] SERVICE 1123 REASON: check for aortic valve vegatations and EF ORDERING PHYSICIAN: KINSEY TENORIO MD PROCEDURE: ECHO FU LD - ECHO 2-D F/U-LTD APPROVED REPORT EXAM: Limited 3D/Two-dimensional echocardiogram with color Doppler. INDICATION ICD: Assess aortic valvular vegetation and assess ejection fraction 2D Dimensions LVED Vol(simp.) 139.0 mL LVES Vol(simp.) 59.0 mL LVEF(%, simp.) 58 % Deformation Strain Apical 4 -14.5 % Apical 2 -19.7 % Apical 3 -19.3 % Global Strain -17.8 % Left Ventricle Left ventricular cavity size is normal. GLS -18.0% There is normal left ventricular wall thickness. LVEF is 55-60%. Aortic Valve Aortic valve is trileaflet and opens well. Multiple vegeations seen on the aortic valve lealfelts. Large RCC leaflet vegetation seen protruding into the LVOT. Small vegetations seen on the LCC/NCC leaflets. No significant changed seen compared to previous echocardiogram. Other Information Quality : Limited/Follow-up DICTATED BY: JOHN VERA MD DATE: 06/14/251319 ELECTRONICALLY SIGNED BY: JOHN VERA MD DATE: 06/14/252036 [place] [address] IMAGING REPORT Signed PATIENT: HUGO WYLIE MR#: [id number] : 1955 SEX: F AGE: 69 LOCATION: 2CH ORDER 8 STATUS: ADM IN REPORT#: [id number] SERVICE 6 REASON: pulmonary congestion ORDERING PHYSICIAN: KINSEY TENORIO MD PROCEDURE: CXR1VW - CHEST 1VW EXAM: CR CHEST, 1 VIEW CLINICAL HISTORY: pulmonary congestion ,CHF COMPARISON: CR: CHEST 1VW dated 06/12/2025 06:14 AM EST: TECHNIQUE: Single frontal radiograph of the chest was obtained. FINDINGS: Lines/Devices: A right PICC is present with its tip seen at the proximal part of the superior vena cava. Lungs: Progressive course as regards the previously noted bilateral interstitial and patchy airspace opacities., more evident at the lower lobes. Newly developed blunted left costophrenic angle suggestive of a mild left pleural effusion. There is no pneumothorax. Mediastinum and cardiovascular structures: The cardiac silhouette is mildly enlarged. Prominent aortic knuckle is noted. The central airway and mediastinal contours are otherwise unremarkable. Bones and soft tissues: Evidence of fixation of the lower cervical spine is noted. Soft tissues are unremarkable. IMPRESSION: 1. Progressive bilateral bilateral interstitial and patchy airspace opacities, more evident at the lower lobes. 2. Newly developed blunted left costophrenic angle suggestive of a mild left pleural effusion. 3. Mild cardiomegaly. 4. Stable prominent aortic knuckle. 5. As compared to the CR: CHEST 1VW dated 06/12/2025 06:14 AM EST: , progressive course as regards the previously noted bilateral interstitial as well as patchy pulmonary opacities,stationary course as regards the cardiomegaly. Right PICC still seen in situ. Newly developed minimal left pleural effusion. /[place] DICTATED BY: GIANLUCA ADAN MD DATE: 06/14/252251 ELECTRONICALLY SIGNED BY: GIANLUCA ADAN MD DATE: 06/14/252251 ASSESSMENT: Acute hypoxemic respiratory failure POA Sepsis secondary to community acquired pneumonia-POA Infective endocarditis involving the aortic valve- culture negative. Aortic insufficiency due to Multiple vegetations seen on the aortic valve leafelts. (2D echo 06/09/2025) Acute CHF exacerbation with possible pulmonary edema POA Elevated troponin likely due to type 2 demand ischemia POA Acute COPD exacerbation POA Nicotine Dependence POA Acute anemia POA Acute leukocytosis POA Moderate Hyponatremia and hypochloremia POA Hyperglycemia POA Lactic acidosis POA Hyperthyroidism POA Peripheral neuropathy POA History of emphysema POA History of atrial fibrillation not on anticoagulation PLAN: Acute hypoxemic respiratory failure POA On Presentation patient's respiratory rate 30, heart rate 108, saturating 96% with2 L nasal cannula Chest x-ray showed bilateral perihilar and bibasilar airspace disease Patient weaned off BiPAP and on nasal cannula via Oxymizer, continue DuoNeb q.4 IV Solu-Medrol 40 mg Q8 IV has been tapered to 40 mg q.12h IV Critical Care on board, we will follow the recommendations. Sepsis secondary to community acquired pneumonia-POA On presentation heart rate 108, respiratory rate 30, white count 19.7, lactic acid 3.1 Chest x-ray showed bilateral perihilar and bibasilar airspace disease CT chest showed multifocal pneumonia bilateral lungs, pulmonary vascular congestion, pulmonary edema Vancomycin was stopped by Infectious Disease, patient was started on linezolid IV q.12h , continue cefepime Continue doxycycline q.12h IV , metronidazole q.8 IV We will trend lactic acid Moderate Hyponatremia and hypochloremia POA On presentation sodium 122, chloride 93 Serum osmolality low at 274, urine osmolality normal, BNP 4530 Hyponatremia most likely due to fluid overload Continue IV Lasix 40 mg q8 Sodium today 137 Nephrology on board, we will follow the recommendations. Aortic insufficiency due to Multiple vegetations seen on the aortic valve leafelts. (2D echo 06/09/2025) 2D echocardiogram showed LVEF 50-55%, normal left ventricular diastolic function, normal right ventricular systolic function Multiple vegetations seen on aortic valve leaflets, difficulty to assess severity of aortic insufficiency, moderate mitral valve regurgitation BNP trended down to 4530 today Continue IV Lasix 40 mg q8 Vancomycin was stopped by Infectious Disease, patient was started on linezolid IV q.12h , continue cefepime Continue doxycycline q.12h IV, metronidazole q.8 IV Blood culture showed no growth so far We will Request consultation from Infectious Disease GI Prophylaxis with famotidine 20 mg IV daily DVT prophylaxis from SCDs ATTESTATION BY PHYSICIAN I have seen and examined the patient. I reviewed the documentation, medical decision making, and treatment plan as noted by the resident physician above. I agree with the findings and plan of care. MIKAYLA RAINES MD, ADIL SHAH QUADRI MD Jun 15, 2025 09:50
--- NOTE | 2025-06-15 11:07 | PN ---
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 She continues to require supplemental oxygen and BiPAP at night. Pending HIDA scan and VICK, patient unable to tolerate positioning She remains on Lasix, 40 g IV [id number], Urine output was noted She continues on antibiotics as per ID Hypotension and shock liver has been improved. She has had acute on chronic renal failure while in the hospital. Creatinine has been elevated in the patient is being seen as a follow up visit for all the above Hyponatremia has improved, she has been encouraged with fluid restriction She remains on midodrine for hypotension. Renal function remains elevated Electrolytes are stable She was seen in the ICU Family at the bedside Prognosis remains guarded REVIEW OF SYSTEMS: GENERAL: Positive for shortness of breath NEUROLOGIC: Negative for any blurry vision, blind spots, double vision, facial asymmetry, dysphagia, dysarthria, hemiparesis, hemisensory deficits, vertigo, ataxia. HEENT: Negative for any head trauma, neck trauma, neck stiffness, photophobia, phonophobia, sinusitis, rhinitis. CARDIAC: Negative for any chest pain, dyspnea on exertion, paroxysmal nocturnal dyspnea, peripheral edema. PULMONARY: Negative for any shortness of breath, wheezing, COPD, or TB exposure. GASTROINTESTINAL: Negative for any abdominal pain, nausea, vomiting, bright red blood per rectum, melena. GENITOURINARY: Negative for any dysuria, hematuria, incontinence. INTEGUMENTARY: Negative for any rashes, cuts, insect bites. RHEUMATOLOGIC: Negative for any joint pains, photosensitive rashes, history of vasculitis or kidney problems. HEMATOLOGIC: Negative for any abnormal bruising, frequent infections or bleeding. PHYSICAL EXAM: GENERAL: Alert and oriented x 3. No acute distress. Well-nourished. EYES: EOMI. Anicteric. HENT: Moist mucous membranes. No scleral icterus. No cervical lymphadenopathy. LUNGS: Clear to auscultation bilaterally. No accessory muscle use. CARDIOVASCULAR: Regular rate and rhythm. No murmur. No JVD. ABDOMEN: Soft, non-tender and non-distended. No palpable masses. EXTREMITIES: No edema. Non-tender. SKIN: No rashes or lesions. Warm. NEUROLOGIC: No focal neurological deficits. CN II-XII grossly intact, but not individually tested. PSYCHIATRIC: Cooperative. Appropriate mood and affect. LABORATORY: [ ] Hematology Labs: Test 06/15/25 06:15 06/14/25 04:30 Range/Units White Blood Count 15.8 H 4.8-10.8 K/uL Red Blood Count 4.23 4.00-5.50 MIL/uL Hemoglobin 10.3 L 12.0-16.0 g/dL Hematocrit 30.6 L 36-48 % Mean Corpuscular Volume 72.3 L 79-99 fL Mean Corpuscular Hemoglobin 24.3 L 27.0-33.0 pg Mean Corpuscular Hemoglobin Concent 33.7 32.0-36.0 g/dL Red Cell Distribution Width 20.7 H 11.0-15.5 % Platelet Count 149 130-400 K/uL Mean Platelet Volume 10.5 7.5-10.5 fL Immature Granulocyte % (Auto) 1.3 H 0-1 % Neutrophils (%) (Auto) 89.3 H 40.0-77.0 % Lymphocytes (%) (Auto) 2.2 L 21.0-51.0 % Monocytes (%) (Auto) 7.1 3.0-13.0 % Eosinophils (%) (Auto) 0.0 0.0-8.0 % Basophils (%) (Auto) 0.1 0.0-5.0 % Neutrophils # (Auto) 14.1 H 1.8-7.7 K/uL Lymphocytes # (Auto) 0.4 L 1.0-4.8 K/uL Monocytes # (Auto) 1.1 H 0.1-1.0 K/uL Eosinophils # (Auto) 0.00 0.00-0.70 K/uL Basophils # (Auto) 0.02 0.00-0.20 K/uL Absolute Immature Granulocyte (auto 0.20 0-1 K/uL Segmented Neutrophils % 94 H 40-70 % Lymphocytes % (Manual) 4 L 22-44 % Monocytes % (Manual) 2 2-9 % Nucleated Red Blood Cells 10.0 H 0.0-0.19 % Differential Comment MANUAL DIFFERENTIAL White Cell Morphology Comment VACUOLATION 1+ Platelet Morphology Comment ADEQUATE Red Blood Cell Morphology See comments Reactive Lymphocytes 1 H 0-0 % Chemistry Labs: Test 06/15/25 06:15 06/14/25 08:48 06/14/25 04:30 06/13/25 11:40 Range/Units Sodium Level 137 136-145 mmol/L Potassium Level 4.0 3.5-5.1 mmol/L Chloride Level 104 101-111 mmol/L Carbon Dioxide Level 20 L 21-32 mmol/L Blood Urea Nitrogen 77 *H 7-18 mg/dL Creatinine 1.9 H 0.5-1.0 mg/dL Glomerular Filtration Rate Calc 28 >90 mL/min Random Glucose 155 H 70-105 mg/dL Total Calcium 7.6 L 8.5-10.1 mg/dL Phosphorus Level 5.1 H 2.5-4.9 mg/dL Magnesium Level 2.30 1.80-2.40 mg/dL Total Bilirubin 3.6 H 0.2-1.0 mg/dL Aspartate Amino Transf (AST/SGOT) 85 H 10-37 U/L Alanine Aminotransferase (ALT/SGPT) 369 H 12-78 U/L Alkaline Phosphatase 98 50-136 U/L B-Type Natriuretic Peptide 4530 H 0-100 pg/mL Total Protein 5.4 L 6.0-8.3 g/dL Albumin 2.3 L 3.5-5.0 g/dL Lactic Acid Level 4.6 H 0.8-2.5 mmol/L C-Reactive Protein, Quantitative 28.70 H 0.5-3.0 mg/L Procalcitonin 0.19 0.05-0.5 ng/mL Whole Blood Ketones Quantitative 0.4 0.0-0.6 mmol/L Coagulation Labs: Test 06/15/25 00:36 Range/Units Activated Partial Thromboplast Time 55.5 H 26.3-35.5 [facility]: [place] [address] [address] IMAGING REPORT Signed PATIENT: HUGO WYLIE MR#: [id number] : 1955 SEX: F AGE: 69 LOCATION: 2CH ORDER 1126 STATUS: ADM IN REPORT#: [id number] SERVICE 1123 REASON: check for aortic valve vegatations and EF ORDERING PHYSICIAN: KINSEY TENORIO MD PROCEDURE: ECHO FU LD - ECHO 2-D F/U-LTD APPROVED REPORT EXAM: Limited 3D/Two-dimensional echocardiogram with color Doppler. INDICATION ICD: Assess aortic valvular vegetation and assess ejection fraction 2D Dimensions LVED Vol(simp.) 139.0 mL LVES Vol(simp.) 59.0 mL LVEF(%, simp.) 58 % Deformation Strain Apical 4 -14.5 % Apical 2 -19.7 % Apical 3 -19.3 % Global Strain -17.8 % Left Ventricle Left ventricular cavity size is normal. GLS -18.0% There is normal left ventricular wall thickness. LVEF is 55-60%. Aortic Valve Aortic valve is trileaflet and opens well. Multiple vegeations seen on the aortic valve lealfelts. Large RCC leaflet vegetation seen protruding into the LVOT. Small vegetations seen on the LCC/NCC leaflets. No significant changed seen compared to previous echocardiogram. Other Information Quality : Limited/Follow-up DICTATED BY: JOHN VERA MD DATE: 06/14/251319 ELECTRONICALLY SIGNED BY: JOHN VERA MD DATE: 06/14/252036 PATIENT: HUGO WYLIE MR#: [id number] : 1955 SEX: F AGE: 69 LOCATION: [facility] ORDER 0819 STATUS: ADM IN REPORT#: [id number] SERVICE 0817 REASON: pulmonary congestion ORDERING PHYSICIAN: KINSEY TENORIO MD PROCEDURE: CXR1VW - CHEST 1VW EXAM: CR CHEST, 1 VIEW CLINICAL HISTORY: pulmonary congestion ,CHF COMPARISON: CR: CHEST 1VW dated 06/12/2025 06:14 AM EST: TECHNIQUE: Single frontal radiograph of the chest was obtained. FINDINGS: Lines/Devices: A right PICC is present with its tip seen at the proximal part of the superior vena cava. Lungs: Progressive course as regards the previously noted bilateral interstitial and patchy airspace opacities., more evident at the lower lobes. Newly developed blunted left costophrenic angle suggestive of a mild left pleural effusion. There is no pneumothorax. Mediastinum and cardiovascular structures: The cardiac silhouette is mildly enlarged. Prominent aortic knuckle is noted. The central airway and mediastinal contours are otherwise unremarkable. Bones and soft tissues: Evidence of fixation of the lower cervical spine is noted. Soft tissues are unremarkable. IMPRESSION: 1. Progressive bilateral bilateral interstitial and patchy airspace opacities, more evident at the lower lobes. 2. Newly developed blunted left costophrenic angle suggestive of a mild left pleural effusion. 3. Mild cardiomegaly. 4. Stable prominent aortic knuckle. 5. As compared to the CR: CHEST 1VW dated 06/12/2025 06:14 AM EST: , progressive course as regards the previously noted bilateral interstitial as well as patchy pulmonary opacities,stationary course as regards the cardiomegaly. Right PICC still seen in situ. Newly developed minimal left pleural effusion. /Theodosia DICTATED BY: GIANLUCA ADAN MD DATE: 06/14/252251 ELECTRONICALLY SIGNED BY: GIANLUCA ADAN MD DATE: 06/14/252251 PATIENT: HUGO WYLIE MR#: [id number] : 1955 SEX: F AGE: 69 LOCATION: [facility] ORDER 230 STATUS: ADM IN REPORT#: [id number] SERVICE 0600 REASON: CHF ORDERING PHYSICIAN: VY FOOTE MD PROCEDURE: CXR1VW - CHEST 1VW EXAM: CR Chest, 1 View. CLINICAL HISTORY: CHF COMPARISON: 06/11/2025 FINDINGS: The right PICC line tip is at the SVC. LUNGS: Interval improvement in the bilateral interstitial and patchy airspace opacities. PLEURAL SPACES: No pleural effusion or pneumothorax. MEDIASTINUM: Mild stable cardiomegaly with pulmonary vascular congestion. BONES: No aggressive appearing osseous lesion seen. Cervical spine fusion hardware. IMPRESSION: 1. Bilateral interstitial and patchy airspace opacities, reduced since the prior study. 2. Mild stable cardiomegaly. 3. Right PICC line tip at the SVC. /[place] DICTATED BY: DARREL GEORGE Jr., MD DATE: 06/12/25 1036 ELECTRONICALLY SIGNED BY: DARREL GEORGE Jr., MD DATE: 06/12/25 1036 PATIENT: HUGO WYLIE MR#: [id number] : 1955 SEX: F AGE: 69 LOCATION: 2CH ORDER 03 STATUS: ADM IN REPORT#: [id number] SERVICE 02 REASON: PICC placement ORDERING PHYSICIAN: VY FOOTE MD PROCEDURE: CXR1VW - CHEST 1VW CHEST 1VW REASON: PICC placement COMPARISON: Prior chest radiograph from 06/08/2025 is available. FINDINGS: Single view of the chest was obtained. There is cardiomegaly. There is diffuse interstitial pulmonary edema. There is a right-sided PIC catheter with tip in distal superior vena cava.. Mediastinum and bony thorax appear unremarkable. There is surgical changes with interpedicular screws and rods in the cervical spine there is anterior cervical disc fusion with orthopedic plate IMPRESSION: 1. The PICC catheter with the tip in the distal superior vena cava in satisfactory position 2. Cardiomegaly with interstitial pulmonary edema DICTATED BY: NARCISO ANTONIO MD DATE: 06/09/25 1228 ELECTRONICALLY SIGNED BY: NARCISO ANTONIO MD DATE: 06/09/25 123 PATIENT: HUGO WYLIE MR#: [id number] : 1955 SEX: F AGE: 69 LOCATION: 2CH ORDER 16 STATUS: ADM IN REPORT#: [id number] SERVICE 0000 REASON: acute chf exacerbation sob ORDERING PHYSICIAN: RIGOBERTO TADEO PROCEDURE: ECHO CMP - ECHO 2-D COMPLETE APPROVED REPORT EXAM: Two-dimensional and M-mode echocardiogram with Doppler and color Doppler. INDICATION ICD: Acute congestive heart failure, shortness of breath 2D Dimensions RVDd 3.1 cm LVEF(%) 26.1 (>50%) LA ESV INDEX (BP) 35.28 mL/m2 IVSd 1.0 (0.7-1.1cm) FS(%) 12 % LVDd 5.0 (3.8-5.6cm) LA (2D) 4.3 (1.6-4.0cm) PWd 1.0 (0.7-1.1cm) Ao Root(2D) 3.4 (2.0-3.7cm) IVSs 1.0 cm LVOT diam 1.9 (1.8-2.4cm) LVDs 4.4 (2.5-4.0cm) PWs 1.6 cm Aortic Valve AoV Vmax 2.2 m/s Ao Peak GR 18.9 mmHg LVOT Vmax 1.6 m/s AoV VTI 0.3 m Ao Mean GR 9.2 mmHg LVOT VTI 0.24 m PATTIE (VMAX) 2.03 cm2 Al P1/2T 129 ms PATTIE (VTI) 2.0 cm2 Mitral Valve MV E Vmax 144.1 cm/s DECEL Time 105 ms MV A Vmax 82.2 cm/s P 1/2 T 34 ms E/A ratio 1.8 MVA (PHT) 6.5 cm2 TDI E/E' Medial 31.4 E/E' Lateral 15.7 Medial E' Peak V 4.59 cm/s Lateral E' Peak V 9.15 cm/s Pulmonary Valve PV Vmax 1.1 m/s PV Mean GR 2.1 mmHg PV Peak GR 4.6 mmHg Tricuspid Valve TR Vmax 2.1 m/s RAP (EST) 8 mmHg RVSP 26.1 mmHg TR Peak GR 18.1 mmHg Left Ventricle The left ventricle is normal size. There is normal LV segmental wall motion. There is normal left ventricular wall thickness. LVEF is 50-55%. The left ventricular diastolic function is normal. Right Ventricle The right ventricle is normal size. The right ventricular systolic function is normal. Atria The left atrium is mildly dilated. The right atrium is mildly dilated. Aortic Valve Aortic valve is trileaflet and opens well. Difficult to assess severity of aortic insufficiency. Would estimate [id number] Multiple vegetations seen on the aortic valve leafelts. Large Right coronary cusp leaflet vegetation seen protruding into the LVOT. Small non coronary cusp leaflet vegetation seen. Small left coronary cusp leaflet vegetation noted. There is no aortic valvular stenosis. Mitral Valve The mitral valve is normal in structure. There is moderate mitral valve reg urgitation noted. There is no mitral valve stenosis. Tricuspid Valve The tricuspid valve is normal in structure. There is no tricuspid valve regurgitation noted. Pulmonic Valve The pulmonary valve is normal in structure. There is mild pulmonic valvular r egurgitation. Great Vessels The aortic root is normal in size. IVC is not well visualized. Pericardium There is trivail pericardial effusion seen posteriorly Other Information Quality : Technically challenging study due to body habitus and limited co operation of pt Conclusion LVEF is 50-55%. LVEF is 50-55%. Multiple vegetations seen on the aortic valve leafelts. Large Right coronary cusp leaflet vegetation seen protruding into the LVOT. Small non coronary cusp leaflet vegetation seen. Small left coronary cusp leaflet vegetation noted. Difficult to assess severity of aortic insufficiency. Would estimate [id number] There is moderate mitral valve regurgitation noted. DICTATED BY: BEN BROWN MD DATE: 06/09/25722 ELECTRONICALLY SIGNED BY: BEN BROWN MD DATE: 06/09/25 1314 PATIENT: HUGO WYLIE MR#: [id number] : 1955 SEX: F AGE: 69 LOCATION: [facility] ORDER 29 STATUS: ADM IN REPORT#: [id number] SERVICE 28 REASON: r/p P.E. ORDERING PHYSICIAN: JOHN NGUYEN PROCEDURE: CHES PE - CT CHEST PE PROTOCOL WWO CONT EXAM: CTA examination of the chest CLINICAL HISTORY: Rule out pulmonary embolism. TECHNIQUE: Postcontrast thin collimated axial CTA images of the chest were obtained with sagittal and coronal reformatted images also submitted. CT scan is done according to ALARA (As Low as Reasonably Achievable). COMPARISON: None provided. FINDINGS: Moderate pleural effusions bilaterally. Compressive atelectasis and consolidations in the bilateral lower lobes of the lung. Multifocal infiltrates and smooth interstitial thickening in the bilateral lung alejandro, reflecting multifocal pneumonia and pulmonary edema. No pneumothorax or masses evident. Small to medium pericardial effusion. Mild to moderate cardiomegaly. Calcific atherosclerotic disease in the thoracic aorta and coronary arteries. No thoracic aortic aneurysm. Dilated pulmonary trunk measures up to 4.4 cm in diameter. Perihilar vascular congestion. No filling defect or pulmonary thromboembolism is evident Mildly reactive mediastinal lymph nodes. Incidental thyroid nodules. Incidental mildly thickened bilateral adrenal glands. Atherosclerotic calcifications in the abdominal vessels. No acute bony abnormality is evident. Degenerative osseous changes. Chronic compression fracture in the T12 vertebral body with about 70% to 80% height reduction. IMPRESSION: No pulmonary thromboembolism. Small to medium pericardial effusion, cardiomegaly, pulmonary vascular congestion, pulmonary edema, and multifocal pneumonia in the bilateral lung alejandro. Moderate pleural effusions bilaterally. Compressive atelectasis and consolidations in the bilateral lower lobes of the lung. Mildly reactive mediastinal lymph nodes. No pneumothorax. Incidental thyroid nodules recommend ultrasound correlation. Incidental mildly enlarged bilateral adrenal glands, recommend a contrast-enhanced MRI of the adrenals for further characterization, if clinically indicated. /Theodosia DICTATED BY: DARREL GEORGE Jr., MD DATE: 06/09/25155 ELECTRONICALLY SIGNED BY: DARREL GEORGE Jr., MD DATE: 06/09/25155 PATIENT: HUGO WYLIE MR#: [id number] : 1955 SEX: F AGE: 69 LOCATION: [facility] ORDER 51 STATUS: [facility] REPORT#: [id number] SERVICE 49 REASON: SHORTNESS A BREATH ORDERING PHYSICIAN: OLVIN DING PROCEDURE: CXR1VW - CHEST 1VW EXAM: CR Chest, 1 View. CLINICAL HISTORY: SHORTNESS A BREATH COMPARISON: None provided. FINDINGS: There is bilateral perihilar and bibasilar airspace disease that may reflect pulmonary edema. Small bilateral pleural effusions. No pneumothorax. Mild to moderate cardiomegaly and pulmonary vascular congestion. IMPRESSION: 1. Bilateral perihilar and bibasilar airspace disease, possibly representing pulmonary edema, with small bilateral pleural effusions. 2. Mild to moderate cardiomegaly and pulmonary vascular congestion. /Theodosia DICTATED BY: DARREL GEORGE Jr., MD DATE: 06/08/251949 ELECTRONICALLY SIGNED BY: DARREL GEORGE Jr., MD DATE: 06/08/251949 ASSESSMENT: Hyponatremia Acute on chronic renal failure Acute hypoxic resp failure requiring BIPAP-POA Sepsis 2/2 community acquired pneumonia-POA NSTEMI-likely type II 2/2 demand ischemia from hypoxia vs. true cardiac etiology-POA- negative for chest pain or ST/T wave abnormality. HEART score 6 points=12-16.6% risk for MACE Possible new-onset CHF with exacerbation-POA Hyperlactatemia-POA Acute infectious encephalopathy-POA Suspected new-onset COPD with exacerbation-POA, in the setting of chronic nicotine disorder Pulmonary edema-POA Bilateral pleural effusions-POA Moderate hyponatremia, suspected acute-POA Sleep deprivation 2/2 current illness-POA History of paroxysmal AFib Chronic nicotine disorder: [id number] HX Prior CVA Neck and back surgery Detached retina Hyperthyroid disorder/Graves disease with right thyroid nodule HX of left greater trochanter fracture Medical non-compliance, HX of AMA last hospitalization in [facility] PLAN: Labs, diagnostic, radiologic exams reviewed and interpreted by myself and supervising physician. We have reviewed external records in detail There is no need for renal replacement therapy at this time. Continue with diuretics. Require close monitoring of renal function and electrolytes Order CBC, CMP, and electrolytes in am Continue with antibiotics as per ID BiPAP as necessary, for respiratory distress IV pressors as needed Monitor blood pressure adjust medication doses as needed Avoid hypotensive episodes May use Dilaudid 0.5 mg IV every 6 hours as needed for severe pain Monitor blood sugars Strict intake, output, and daily weight should be monitored Please renally adjust medications Avoid nephrotoxic and nonsteroidal drugs Avoid contrast if possible Will continue to monitor renal function, anemia, electrolytes Treatment plan discussed with patient Questions were answered We have discussed with the other team physicians in detail about the care plan We will continue to monitor the patient closely Total critical care time spent with patient, nursing staff, critical care team over 35 minutes ATTESTATION BY PHYSICIAN I have seen and examined the patient. I reviewed the documentation, medical decision making, and treatment plan as noted by the mid-level provider above. I agree with the findings and plan of care. FLAVIA METCALF MD, [facility] Jun 15, 2025 11:07
--- NOTE | 2025-06-15 13:49 | PN ---
1. Sepsis and hypotension in the setting of multifocal pneumonia. 2. Infective endocarditis involving the aortic valve- culture negative. 3. Preserved LVEF. 4. Acute multifactorial delirium. 5. Aortic insufficiency, acute, complicated by heart failure 6. Mitral regurgitation 7. Atrial fibrillation, paroxysmal 8. Mild elevation of troponin, peak 178, in setting of sepsis and endocarditis- nonspecific troponin elevation, not diagnostic of infarct 9. Acute on chronic renal failure Patient is conversant and says she does not know how she is, states that others have been telling her she is confused but she does not think so. Specifically denies shortness of breath. Physical exam shows a patient with marginal mental status who is conversant. Moves all four extremities, no obvious embolic signs. Currently no JVD, prominent carotid volume, nonlabored respiration at rest and diffusely diminished breath sounds on exam, no retractions. S1 and S2 are preserved. There is a 2/6 aortic outflow murmur and there is a hollow diastolic decrescendo 2/6 AI murmur left of the sternum and down to the apex. There also appears to be a mild holosystolic apical murmur. Mild edema noted in her hands, not so much in her legs. Bowel sounds normal. BNP has been markedly elevated and the patient does not tolerate flat body position, appears to be in heart failure. She had been treated with midodrine earlier in the stay and this should be avoided; per vasoconstrictors are at least relatively contraindicated in the presence of aortic insufficiency. A repeat echocardiogram has been ordered and if it is done today I will get it interpreted and available for review. If the patient does experience hypotension and requires pressor therapy this should be managed by the salesperson household appliances and the drug should be chosen and dosed very carefully, possibly with different parameters then we would ordinarily use. Currently the patient is in sinus rhythm with premature atrial beats, atrial fibrillation has resolved. Nurse advises that heparin has been used because of the aortic valve vegetation, and I would submit that this is not likely to produce any benefit. Anticoagulation is indicated for embolic protection in atrial fibrillation, however, and I think we should switch to Lovenox. Vitals/Labs Vital Signs Date Time Temp Pulse Resp B/P (MAP) Pulse Ox O2 Delivery O2 Flow Rate FiO2 06/15/25 12:00 93 Hi-Flow N/C+ 30 55 06/15/25 11:00 86 27 133/58 06/15/25 08:00 98.2 Laboratory Tests 06/15/25 06:15 Medications Current Medications Methylprednisolone Sodium Succinate 125 mg ONCE ONCE IVP Last administered on 06/08/25at 17:19; Start 06/08/25 at 17:00; Stop 06/08/25 at 17:16; Status DC Albuterol 2 udvial ONCE ONCE IH Last administered on 06/08/25at 17:41; Start 06/08/25 at 17:00; Stop 06/08/25 at 17:16; Status DC Methylprednisolone Sodium Succinate 125 mg STK-MED ONCE .ROUTE; Start 06/08/25 at 17:12; Stop 06/08/25 at 17:12; Status DC Levofloxacin/ Dextrose 750 mg ONCE ONCE IV Last administered on 06/08/25at 19:26; Start 06/08/25 at 17:30; Stop 06/08/25 at 17:34; Status DC Sodium Chloride 1,000 ml @ 0 mls/hr ONCE ONCE IV; Start 06/08/25 at 18:00; Stop 06/08/25 at 17:59; Status DC Sodium Chloride 500 ml @ 0 mls/hr ONCE ONCE IV Last administered on 06/08/25at 18:05; Start 06/08/25 at 18:00; Stop 06/08/25 at 18:03; Status DC Furosemide 80 mg ONCE ONCE IVP; Start 06/08/25 at 18:00; Stop 06/08/25 at 18:01; Status Cancel Pantoprazole Sodium 40 mg ONCE ONCE PO; Start 06/08/25 at 18:30; Stop 06/08/25 at 18:31; Status DC Furosemide 40 mg STK-MED ONCE .ROUTE; Start 06/08/25 at 19:29; Stop 06/08/25 at 19:30; Status DC Furosemide 80 mg ONCE ONCE IVP; Start 06/08/25 at 20:00; Stop 06/08/25 at 20:01; Status DC Furosemide 80 mg ONCE ONCE IVP; Start 06/08/25 at 20:00; Stop 06/08/25 at 19:54; Status DC Morphine Sulfate 2 mg ONCE ONCE IVP; Start 06/08/25 at 20:00; Stop 06/08/25 at 20:05; Status DC Dexmedetomidine/ Sodium Chloride 400 mcg PROTOCOL IV Last administered on 06/11/25at 09:27; Start 06/08/25 at 20:00; Stop 06/11/25 at 17:00; Status DC Dexmedetomidine/ Sodium Chloride 400 mcg STK-MED ONCE IV; Start 06/08/25 at 20:02; Stop 06/08/25 at 20:02; Status DC Acetaminophen 650 mg Q6H PRN PO Last administered on 06/12/25at 20:47; Start 06/08/25 at 20:30; Stop 07/08/25 at 20:29 Acetaminophen 650 mg Q4H PRN PO Last administered on 06/12/25at 10:16; Start 06/08/25 at 20:30; Stop 07/08/25 at 20:29 Ondansetron HCl 4 mg Q6H PRN IV; Start 06/08/25 at 20:30; Stop 07/08/25 at 20:29 Albuterol 1 udvial [id number] IH Last administered on 06/15/25at 10:42; Start 06/08/25 at 22:00; Stop 07/08/25 at 21:59 Furosemide 40 mg BID IVP Last administered on 06/11/25at 09:32; Start 06/08/25 at 21:00; Stop 06/11/25 at 17:00; Status DC Famotidine 20 mg DAILY IV Last administered on 06/09/25at 08:39; Start 06/09/25 at 09:00; Stop 06/09/25 at 13:09; Status DC Levofloxacin/ Dextrose 100 ml @ 100 mls/hr Q24H IV; Start 06/09/25 at 20:00; Stop 06/08/25 at 22:40; Status DC Morphine Sulfate 1 mg ONCE ONCE IVP Last administered on 06/08/25at 20:36; Start 06/08/25 at 20:30; Stop 06/08/25 at 20:31; Status DC Furosemide 40 mg ONCE ONCE IV Last administered on 06/08/25at 21:18; Start 06/08/25 at 21:00; Stop 06/08/25 at 21:01; Status DC Doxycycline Hyclate 250 ml @ 125 mls/hr Q12H IV Last administered on 06/15/25at 11:45; Start 06/08/25 at 23:00; Stop 06/18/25 at 22:59 Piperacillin Sod/ Tazobactam Sod 3.375 gm Q8H IV Last administered on 06/10/25at 07:10; Start 06/08/25 at 23:00; Stop 06/10/25 at 09:08; Status DC Nicotine 21 mg DAILY TD Last administered on 06/15/25at 08:37; Start 06/08/25 at 23:00; Stop 07/08/25 at 22:59 Iohexol 50 ml STK-MED ONCE IV; Start 06/08/25 at 23:38; Stop 06/08/25 at 23:38; Status DC Norepinephrine 250 ml @ As Directed STK-MED ONCE IV; Start 06/09/25 at 00:30; Stop 06/09/25 at 00:31; Status DC Norepinephrine 250 ml @ 0 mls/hr PROTOCOL IV Last administered on 06/11/25at 10:05; Start 06/09/25 at 01:00; Stop 07/09/25 at 00:59 Pharmacy Profile Note 1 each ONCE MISC; Start 06/09/25 at 03:00; Stop 06/09/25 at 03:24; Status DC Heparin Sodium (Porcine) *calculation based on ACTUAL B... AD PRN IV; Start 06/09/25 at 04:00; Stop 07/09/25 at 03:59 Heparin Sodium/ Dextrose 250 ml @ 0 mls/hr Q6H IV Last administered on 06/15/25at 02:42; Start 06/09/25 at 04:00; Stop 07/09/25 at 03:59 Heparin Sodium (Porcine) 5,000 unit ONCE ONCE IV Last administered on 06/09/25at 05:30; Start 06/09/25 at 05:30; Stop 06/09/25 at 05:31; Status DC Sodium Bicarbonate 150 meq/Sodium Chloride 1,150 ml @ 100 mls/hr [id number] IVP; Start 06/09/25 at 12:00; Stop 06/09/25 at 12:29; Status DC Ziprasidone 10 mg Q6H ONCE IM Last administered on 06/09/25at 12:24; Start 06/09/25 at 12:21; Stop 06/09/25 at 12:23; Status DC Ziprasidone 20 mg STK-MED ONCE IM; Start 06/09/25 at 12:22; Stop 06/09/25 at 12:22; Status DC Sodium Bicarbonate 100 meq ONCE ONCE IV Last administered on 06/09/25at 13:39; Start 06/09/25 at 12:30; Stop 06/09/25 at 12:36; Status DC Oseltamivir Phosphate 75 mg BID PO Last administered on 06/10/25at 09:03; Start 06/09/25 at 21:00; Stop 06/10/25 at 09:08; Status DC Ziprasidone 10 mg Q6H PRN IM Last administered on 06/11/25at 17:28; Start 06/09/25 at 18:00; Stop 07/09/25 at 17:59 Dorzolamide/ Timolol 1 DROP BID OP Last administered on 06/15/25at 08:37; Start 06/09/25 at 21:00; Stop 07/09/25 at 20:59 Latanoprost 1 DROP HS OD Last administered on 06/14/25at 21:15; Start 06/09/25 at 21:00; Stop 07/09/25 at 20:59 Home Med (Methimazole 5MG TAB) - 0.5 TAB... DAILY PO Last administered on 06/15/25at 08:38; Start 06/10/25 at 09:00; Stop 07/10/25 at 08:59 Methylprednisolone Sodium Succinate 40 mg Q8H IVP Last administered on 06/12/25at 13:23; Start 06/09/25 at 13:30; Stop 06/12/25 at 14:11; Status DC Budesonide 0.5 mg BIDRESP IH Last administered on 06/15/25at 06:37; Start 06/09/25 at 18:00; Stop 07/09/25 at 17:59 Pantoprazole Sodium 40 mg DAILY IVP Last administered on 06/15/25at 08:36; Start 06/10/25 at 09:00; Stop 07/10/25 at 08:59 Potassium Chloride 100 ml @ 100 mls/hr AD PRN IV Last administered on 06/14/25at 05:36; Start 06/09/25 at 17:00; Stop 07/09/25 at 16:59 Potassium Chloride 20 meq AD PRN PO; Start 06/09/25 at 17:00; Stop 07/09/25 at 16:59 Potassium Chloride 20 meq AD PRN PO; Start 06/09/25 at 17:00; Stop 07/09/25 at 16:59 Potassium Chloride 100 ml @ 50 mls/hr AD PRN IV Last administered on 06/09/25at 21:18; Start 06/09/25 at 17:00; Stop 06/11/25 at 06:10; Status DC Magnesium Sulfate 50 ml @ 0 mls/hr PROTOCOL PRN IV Last administered on 06/12/25at 03:21; Start 06/09/25 at 17:00; Stop 07/09/25 at 16:59 Sodium Bicarbonate 50 meq ONCE ONCE IV Last administered on 06/10/25at 09:03; Start 06/10/25 at 09:00; Stop 06/10/25 at 09:01; Status DC Cefepime HCl 1 gm Q8H IVPB; Start 06/10/25 at 09:30; Stop 06/10/25 at 09:41; Status DC Vancomycin HCl 1 each AD IV; Start 06/10/25 at 09:30; Stop 06/11/25 at 11:15; Status DC Vancomycin HCl 250 ml @ 125 mls/hr ONCE ONCE IV Last administered on 06/10/25at 09:41; Start 06/10/25 at 10:00; Stop 06/10/25 at 11:59; Status DC Vancomycin HCl 250 ml @ 125 mls/hr Q24H IV Last administered on 06/11/25at 09:31; Start 06/11/25 at 10:00; Stop 06/11/25 at 11:15; Status DC Cefepime HCl 1 gm Q12H IVPB Last administered on 06/10/25at 14:23; Start 06/10/25 at 14:00; Stop 06/10/25 at 14:35; Status DC Olanzapine 5 mg BID PO Last administered on 06/15/25at 08:36; Start 06/10/25 at 21:00; Stop 07/10/25 at 20:59 Metronidazole/ Sodium Chloride 100 ml @ 100 mls/hr Q8H6 IVPB Last administered on 06/15/25at 05:36; Start 06/10/25 at 14:00; Stop 06/20/25 at 13:59 Midodrine 5 mg TID PO Last administered on 06/10/25at 20:08; Start 06/10/25 at 14:00; Stop 06/11/25 at 08:52; Status DC Midodrine 5 mg ONCE ONCE PO Last administered on 06/10/25at 12:56; Start 06/10/25 at 12:00; Stop 06/10/25 at 12:01; Status DC Olanzapine 5 mg ONCE ONCE PO Last administered on 06/10/25at 13:20; Start 06/10/25 at 13:00; Stop 06/10/25 at 13:01; Status DC Cefepime HCl 1 gm Q12H9 IVPB Last administered on 06/15/25at 08:36; Start 06/10/25 at 21:00; Stop 06/24/25 at 13:59 Phytonadione 10 mg Q24H SQ Last administered on 06/10/25at 15:11; Start 06/10/25 at 15:00; Stop 06/10/25 at 16:55; Status DC Phytonadione 10 mg DAILY SQ Last administered on 06/13/25at 09:24; Start 06/11/25 at 09:00; Stop 06/13/25 at 15:00; Status DC Lorazepam 1 mg ONCE ONCE IVP Last administered on 06/10/25at 22:30; Start 06/10/25 at 22:30; Stop 06/10/25 at 22:31; Status DC Midodrine 10 mg TID PO Last administered on 06/14/25at 21:14; Start 06/11/25 at 09:00; Stop 07/11/25 at 08:59 Pharmacy Profile Note 1 each ONCE MISC; Start 06/11/25 at 11:30; Stop 06/11/25 at 11:19; Status DC Linezolid 300 ml @ 150 mls/hr Q12H IV; Start 06/11/25 at 11:30; Stop 06/11/25 at 12:38; Status DC Linezolid 300 ml @ 150 mls/hr Q12H IV Last administered on 06/15/25at 02:39; Start 06/11/25 at 14:30; Stop 06/21/25 at 14:29 Furosemide 20 mg BID IVP Last administered on 06/11/25at 21:26; Start 06/11/25 at 21:00; Stop 06/12/25 at 06:54; Status DC Metoprolol Tartrate 5 mg STK-MED ONCE IV Last administered on 06/12/25at 03:22; Start 06/12/25 at 03:07; Stop 06/12/25 at 03:07; Status DC Metoprolol Tartrate 2.5 mg Q6H PRN IV; Start 06/12/25 at 03:30; Stop 07/12/25 at 03:29 Metoprolol Tartrate 5 mg ONCE ONCE IV Last administered on 06/12/25at 05:18; Start 06/12/25 at 05:00; Stop 06/12/25 at 05:01; Status DC Amiodarone HCL/ Dextrose 100 ml @ 600 mls/hr PROTOCOL IV Last administered on 06/12/25at 05:10; Start 06/12/25 at 05:00; Stop 06/12/25 at 06:53; Status DC Amiodarone HCL/ Dextrose 200 ml @ 33.333 mls/ hr PROTOCOL IV Last administered on 06/12/25at 05:11; Start 06/12/25 at 05:00; Stop 06/12/25 at 06:53; Status DC Amiodarone HCl 540 mg/Dextrose 300 ml @ 16.667 mls/ hr PROTOCOL IV Last administered on 06/12/25at 11:33; Start 06/12/25 at 10:00; Stop 06/13/25 at 03:59; Status DC Amiodarone HCL/ Dextrose 100 ml @ 0 mls/hr PROTOCOL IV; Start 06/12/25 at 07:00; Stop 06/12/25 at 07:01; Status DC Furosemide 20 mg BID IVP Last administered on 06/12/25at 08:57; Start 06/12/25 at 09:00; Stop 06/12/25 at 09:19; Status DC Furosemide 40 mg BID IVP Last administered on 06/14/25at 08:24; Start 06/12/25 at 21:00; Stop 06/14/25 at 13:19; Status DC Furosemide 20 mg ONCE ONCE IV Last administered on 06/12/25at 09:52; Start 06/12/25 at 09:30; Stop 06/12/25 at 09:31; Status DC Metoprolol Tartrate 25 mg BID PO Last administered on 06/14/25at 21:14; Start 06/12/25 at 21:00; Stop 07/12/25 at 20:59 Methylprednisolone Sodium Succinate 40 mg Q12H9 IVP Last administered on 06/15/25at 08:36; Start 06/12/25 at 21:00; Stop 07/09/25 at 13:29 Fluticasone Propionate 1 SPRAY DAILY EN Last administered on 06/15/25at 08:38; Start 06/12/25 at 15:00; Stop 07/12/25 at 14:59 Lactulose 20 gm ONCE ONCE PO Last administered on 06/13/25at 09:14; Start 06/13/25 at 07:30; Stop 06/13/25 at 07:31; Status DC Lactulose 20 gm BID PRN PO; Start 06/13/25 at 07:30; Stop 07/13/25 at 07:29 Sodium Bicarbonate 100 meq ONCE ONCE IV Last administered on 06/13/25at 09:11; Start 06/13/25 at 08:30; Stop 06/13/25 at 08:31; Status DC Amiodarone HCl 200 mg BID ONCE PO Last administered on 06/13/25at 09:13; Start 06/13/25 at 09:00; Stop 06/13/25 at 09:14; Status DC Amiodarone HCl 200 mg BID PO Last administered on 06/15/25at 08:36; Start 06/13/25 at 21:00; Stop 07/13/25 at 20:59 Sodium Bicarbonate 650 mg BID PO; Start 06/13/25 at 11:30; Stop 06/13/25 at 11:58; Status DC Sodium Bicarbonate 1,300 mg BID PO Last administered on 06/15/25at 08:36; Start 06/13/25 at 21:00; Stop 07/13/25 at 20:59 Furosemide 40 mg Q8H6 IVP Last administered on 06/15/25at 05:37; Start 06/14/25 at 14:00; Stop 07/12/25 at 20:59 RADHA GOLDSTEIN MD Jun 15, 2025 13:49
[2025-06-15] MEDS: ENOXAPARIN SODIUM 80 MG/0.8 ML SQ SCH (14:30)
--- NOTE | 2025-06-15 14:38 | PN ---
[facility] PROGRESS NOTE Date Patient Seen: Jun 15, 2025 Time of Visit: 14:34 Supervising Physician: Dr Bg Fountain Primary Care Physician: [Dr. Yoel Pierson] Outpatient Specialists: [ ] Inpatient Consults: [[facility] team-ICU ] PROBLEM LIST: Acute hypoxic respiratory failure present on admission Paroxysmal atrial fibrillation Respiratory Alkalosis Metabolic acidosis Sepsis 2/2 community acquired pneumonia-POA Aortic valve vegetations Bacterial endocarditis with negative blood cultures Hepatic transaminitis NSTEMI-likely type II 2/2 demand ischemia from hypoxia vs. true cardiac etiology-POA- negative for chest pain or ST/T wave abnormality. HEART score 6 points=12-16.6% risk for MACE Possible new-onset CHF with exacerbation-POA Hyperlactatemia-POA Acute delirium Acute COPD exacerbation Emphysema secondary to tobacco use disorder Pulmonary edema-POA Bilateral pleural effusions-POA Moderate hyponatremia, suspected acute-POA Chronic nicotine disorder: [id number]-tiuo HX Prior CVA Hyperthyroid disorder/Graves disease with right thyroid nodule INTERVAL HISTORY: Patient seen and examined, all labs and imaging have been reviewed, patient is awake alert and following commands, remains confused at times Patient continues edematous, we will continue to diurese Continue with supplemental O2, she is currently on high-flow BiPAP at night She still continues to pend the HIDA scan and a VICK but unable due to unable to tolerate positioning More oriented, off Precedex, no sitter at bedside Remains on heparin drip Plan: We will continue to follow cardiology recs, adjustments with antihypertensives She remains on a heparin drip We are following ID recommendations for antibiotics She continues to pend the VICK and HIDA scan but unable to tolerate positioning Continue on supplemental O2, high-flow, BiPAP at night Continue to diurese, continue on Lasix Total critical care time spent 45 minutes, this excludes any procedures performed or any time spent in educational or teaching. REVIEW OF SYSTEMS: More awake today, able to answer questions and oriented to self and place. No other major complaints reported by the patient herself and most of the information is obtained from nursing staff and medical records at bedside. PHYSICAL EXAM: GENERAL: Awake, alert and oriented to time and place. Patient oriented to self and appears to be less jaundice. HEENT: EOMI, Sclera non icteric, dry mucosa NECK: Supple, no JVD, trachea midline LUNGS: Grossly clear, decreased air entry without wheezing HEART: Regular rate and rhythm. Normal S1 and S2, without murmurs, tachycardia ABD: Abdomen soft, nontender. Bowel sounds present EXT: No clubbing cyanosis or edema NEURO: Awake, alert. Off Precedex drip Vital Signs (last 8hr) Date Time Temp Pulse Resp B/P (MAP) Pulse Ox O2 Delivery O2 Flow Rate FiO2 06/15/25 14:31 88 18 HFNC Heated System N/Can 20.0 55 06/15/25 14:29 88 18 06/15/25 12:00 93 Hi-Flow N/C+ 30 55 06/15/25 11:00 86 27 133/58 96 06/15/25 10:46 85 18 HFNC Heated System N/Can 20.0 55 06/15/25 10:43 77 18 06/15/25 10:00 90 19 141/56 86 06/15/25 09:00 85 21 132/50 92 06/15/25 08:30 85 21 132/50 92 06/15/25 08:00 98.2 84 20 128/42 93 N/C High Flow System 06/15/25 08:00 90 Hi-Flow N/C+ 30 55 06/15/25 07:30 85 16 95 06/15/25 07:00 85 21 95 06/15/25 06:42 83 20 HFNC Heated System N/Can 25.0 60 06/15/25 06:38 83 20 06/15/25 06:37 84 17 138/58 (84) 96 LABS: Hematology Labs: Test 06/15/25 06:15 06/14/25 04:30 Range/Units White Blood Count 15.8 H 4.8-10.8 K/uL Red Blood Count 4.23 4.00-5.50 MIL/uL Hemoglobin 10.3 L 12.0-16.0 g/dL Hematocrit 30.6 L 36-48 % Mean Corpuscular Volume 72.3 L 79-99 fL Mean Corpuscular Hemoglobin 24.3 L 27.0-33.0 pg Mean Corpuscular Hemoglobin Concent 33.7 32.0-36.0 g/dL Red Cell Distribution Width 20.7 H 11.0-15.5 % Platelet Count 149 130-400 K/uL Mean Platelet Volume 10.5 7.5-10.5 fL Immature Granulocyte % (Auto) 1.3 H 0-1 % Neutrophils (%) (Auto) 89.3 H 40.0-77.0 % Lymphocytes (%) (Auto) 2.2 L 21.0-51.0 % Monocytes (%) (Auto) 7.1 3.0-13.0 % Eosinophils (%) (Auto) 0.0 0.0-8.0 % Basophils (%) (Auto) 0.1 0.0-5.0 % Neutrophils # (Auto) 14.1 H 1.8-7.7 K/uL Lymphocytes # (Auto) 0.4 L 1.0-4.8 K/uL Monocytes # (Auto) 1.1 H 0.1-1.0 K/uL Eosinophils # (Auto) 0.00 0.00-0.70 K/uL Basophils # (Auto) 0.02 0.00-0.20 K/uL Absolute Immature Granulocyte (auto 0.20 0-1 K/uL Segmented Neutrophils % 94 H 40-70 % Lymphocytes % (Manual) 4 L 22-44 % Monocytes % (Manual) 2 2-9 % Nucleated Red Blood Cells 10.0 H 0.0-0.19 % Differential Comment MANUAL DIFFERENTIAL White Cell Morphology Comment VACUOLATION 1+ Platelet Morphology Comment ADEQUATE Red Blood Cell Morphology See comments Reactive Lymphocytes 1 H 0-0 % Chemistry Labs: Test 06/15/25 06:15 06/14/25 08:48 06/14/25 04:30 Range/Units Sodium Level 137 136-145 mmol/L Potassium Level 4.0 3.5-5.1 mmol/L Chloride Level 104 101-111 mmol/L Carbon Dioxide Level 20 L 21-32 mmol/L Blood Urea Nitrogen 77 *H 7-18 mg/dL Creatinine 1.9 H 0.5-1.0 mg/dL Glomerular Filtration Rate Calc 28 >90 mL/min Random Glucose 155 H 70-105 mg/dL Total Calcium 7.6 L 8.5-10.1 mg/dL Phosphorus Level 5.1 H 2.5-4.9 mg/dL Magnesium Level 2.30 1.80-2.40 mg/dL Total Bilirubin 3.6 H 0.2-1.0 mg/dL Aspartate Amino Transf (AST/SGOT) 85 H 10-37 U/L Alanine Aminotransferase (ALT/SGPT) 369 H 12-78 U/L Alkaline Phosphatase 98 50-136 U/L B-Type Natriuretic Peptide 4530 H 0-100 pg/mL Total Protein 5.4 L 6.0-8.3 g/dL Albumin 2.3 L 3.5-5.0 g/dL Lactic Acid Level 4.6 H 0.8-2.5 mmol/L C-Reactive Protein, Quantitative 28.70 H 0.5-3.0 mg/L Procalcitonin 0.19 0.05-0.5 ng/mL Coagulation Labs: Test 06/15/25 00:36 Range/Units Activated Partial Thromboplast Time 55.5 H 26.3-35.5 SEC DIAGNOSTICS / RADIOLOGY RESULTS: [ ] PLAN NEURO: Minimize central acting medications as possible. Fall Precautions. Well lighted room through the day and minimize interruptions through the night to prevent acute delirium. PULMONARY: Supplemental 02 as needed Titrate Fio2 to keep Spo2 > or = 90% DuoNebs and CPT as needed IS hourly while awake for pulmonary hygiene Out of bed to chair as tolerated VAP Bundle Vent/BIPAP Settings: [ ] Driving pressure: [ ] P Plat: [ ] Static C: [ ] Static R: [ ] P/F Ratio: [ ] CARDIOVASCULAR: Follow hemodynamics. Titrate vasopressor to keep MAP >65 or systolic blood pressure >95mmHg DRIPS: [Precedex] LINES: [ ] GI & NUTRITION: Continue nutritional support Aspirations precautions Prokinetic agents and laxatives as needed KIDNEYS & ELECTROLYTES: Strict monitoring of intake and output Daily weights Avoid nephrotoxic agents Monitor electrolytes and replace as needed Goal urine output of 30mL/hr or 0.5mL/kg/hr Urine output: [ ] Fluid Balance: [ ] ENDOCRINE: Maintain blood glucose between 100-180 at all times. Insulin sliding scale for blood glucose management INFECTIOUS DISEASE: Trend temperature. Dubois-culture if febrile. Micro: [ ] Antibiotics: [Vancomycin and Cefepime ] HEMATOLOGY & COAGULATION: Monitor H&H. Keep Hgb > 7 Transfuse 1 unit of PRBC for Hgb < 7 Transfuse 1 pack of platelets of platelets < 20, 000 Watch for any signs and symptoms of bleeding SKIN: Pressure ulcer prevention per facility protocol Rehab: PT/OT Prophylaxis: GI: [Pepcid ] DVT: [Heparin] Code Status: Full Resuscitation Disposition: [ICU] JOHN MCCLAIN PAC Jun 15, 2025 14:38
--- NOTE | 2025-06-15 17:16 | NUR ---
SPEECH THERAPY COMPLETED S: Patient is alert and oriented. Patient's friend was present. No solids trialed this date as patient states she is feeling tired. O: Oral motor exercises, thin liquid trials. A: The patient completed oral motor exercises for lingual and labial structures with min assist in 100% of opportunities given frequent breaks due to fatigue. Patient tolerated thin liquids without s/s of aspiration for single sips. P: Continue with plan of care for dysphagia management. Communication with nurse regarding session, continue with current diet (liquids only) Addendum: 06/15/[address] [facility] Amended: Links added.
--- NOTE | 2025-06-15 17:25 | PN ---
INFECTIOUS DISEASE PROGRESS NOTE Date of Service: Jun 15, 2025 SUBJECTIVE: Patient was seen at bedside in room 215. Remains with confusion episodes. No fever, temperature 98.2. A repeat 2D echo still showing multiple vegetation on the aortic valve leaflets. 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 Patient is currently on high-flow oxygen. We will continue on linezolid, cefepime and doxycycline. PHYSICAL EXAM EYES: Anicteric. Pupils equal and reactive. HENT: No oral thrush seen, moist Oral mucosa. NECK: Supple, no JVD or thyromegaly. LUNGS: Productive cough. High-flow Oxygen support. CARDIOVASCULAR: S1, S2 regular. No murmur heard. ABDOMEN: Soft, non tender, bowel sounds present. CENTRAL NERVOUS SYSTEM: Awake, alert, oriented x1. SKIN: No rashes, no swelling. LYMPHATICS: No peripheral lymphadenopathy. MUSCULOSKELETAL: No joint swelling, erythema or tenderness. EXTREMITIES: No cyanosis or clubbing. BACK: No deformity, no pressure ulcer. GENITOURINARY: No dysuria or hematuria. Gonzalez catheter. Vital Sign (Last 12 Hours) 06/15/25 06/15/25 06/15/25 06/15/25 05:37 06:37 06:38 06:42 Pulse 78 84 83 83 Resp 22 17 20 20 B/P (MAP) 128/42 (70) 138/58 (84) Pulse Ox 92 96 O2 Delivery HFNC Heated System N/Can O2 Flow Rate 25.0 FiO2 60 06/15/25 06/15/25 06/15/25 06/15/25 07:00 07:30 08:00 08:00 Temp 98.2 Pulse 85 85 84 Resp 21 16 20 B/P (MAP) 128/42 Pulse Ox 95 95 90 93 O2 Delivery Hi-Flow N/C+ N/C High Flow System O2 Flow Rate 30 FiO2 55 06/15/25 06/15/25 06/15/25 06/15/25 08:00 08:30 09:00 09:00 Pulse 88 85 85 85 Resp 16 21 21 21 B/P (MAP) 128/42 (70) 132/50 132/50 (77) 132/50 Pulse Ox 93 92 92 92 06/15/25 06/15/25 06/15/25 06/15/25 10:00 10:00 10:43 10:46 Pulse 90 90 77 85 Resp 19 19 18 18 B/P (MAP) 141/56 (84) 141/56 Pulse Ox 86 86 O2 Delivery HFNC Heated System N/Can O2 Flow Rate 20.0 FiO2 55 06/15/25 06/15/25 06/15/25 06/15/25 11:00 11:00 12:00 12:00 Pulse 86 86 92 Resp 27 27 20 B/P (MAP) 133/58 133/58 (83) 117/50 (72) Pulse Ox 96 96 93 91 O2 Delivery Hi-Flow N/C+ O2 Flow Rate 30 FiO2 55 06/15/25 06/15/25 06/15/25 06/15/25 13:00 14:00 14:29 14:31 Pulse 85 90 88 88 Resp 12 17 18 18 B/P (MAP) 129/53 (78) 142/49 (80) Pulse Ox 91 92 O2 Delivery HFNC Heated System N/Can O2 Flow Rate 20.0 FiO2 55 06/15/25 06/15/25 06/15/25 15:00 16:00 16:00 Temp 98.1 Pulse 87 91 Resp 25 15 B/P (MAP) 132/53 (79) 132/53 Pulse Ox 92 92 92 O2 Delivery Hi-Flow N/C+ O2 Flow Rate 30 FiO2 55 Intake & Output (last 24hrs) 06/14/25 06/14/25 06/15/25 15:00 23:00 07:00 Intake Total 441.8 ml 487.6 ml 132.9 ml Output Total 500 ml 350 ml Balance 441.8 ml -12.4 ml -217.1 ml LABS: Laboratory: Test 06/15/25 06:15 06/15/25 03:24 06/15/25 00:36 06/14/25 08:48 Range/Units White Blood Count 15.8 H 4.8-10.8 K/uL Red Blood Count 4.23 4.00-5.50 MIL/uL Hemoglobin 10.3 L 12.0-16.0 g/dL Hematocrit 30.6 L 36-48 % Mean Corpuscular Volume 72.3 L 79-99 fL Mean Corpuscular Hemoglobin 24.3 L 27.0-33.0 pg Mean Corpuscular Hemoglobin Concent 33.7 32.0-36.0 g/dL Red Cell Distribution Width 20.7 H 11.0-15.5 % Platelet Count 149 130-400 K/uL Mean Platelet Volume 10.5 7.5-10.5 fL Immature Granulocyte % (Auto) 1.3 H 0-1 % Neutrophils (%) (Auto) 89.3 H 40.0-77.0 % Lymphocytes (%) (Auto) 2.2 L 21.0-51.0 % Monocytes (%) (Auto) 7.1 3.0-13.0 % Eosinophils (%) (Auto) 0.0 0.0-8.0 % Basophils (%) (Auto) 0.1 0.0-5.0 % Neutrophils # (Auto) 14.1 H 1.8-7.7 K/uL Lymphocytes # (Auto) 0.4 L 1.0-4.8 K/uL Monocytes # (Auto) 1.1 H 0.1-1.0 K/uL Eosinophils # (Auto) 0.00 0.00-0.70 K/uL Basophils # (Auto) 0.02 0.00-0.20 K/uL Absolute Immature Granulocyte (auto 0.20 0-1 K/uL Segmented Neutrophils % 94 H 40-70 % Lymphocytes % (Manual) 4 L 22-44 % Monocytes % (Manual) 2 2-9 % Nucleated Red Blood Cells 10.0 H 0.0-0.19 % Differential Comment MANUAL DIFFERENTIAL White Cell Morphology Comment VACUOLATION 1+ Platelet Morphology Comment ADEQUATE Red Blood Cell Morphology See comments Sodium Level 137 136-145 mmol/L Potassium Level 4.0 3.5-5.1 mmol/L Chloride Level 104 101-111 mmol/L Carbon Dioxide Level 20 L 21-32 mmol/L Blood Urea Nitrogen 77 *H 7-18 mg/dL Creatinine 1.9 H 0.5-1.0 mg/dL Glomerular Filtration Rate Calc 28 >90 mL/min Random Glucose 155 H 70-105 mg/dL Total Calcium 7.6 L 8.5-10.1 mg/dL Phosphorus Level 5.1 H 2.5-4.9 mg/dL Magnesium Level 2.30 1.80-2.40 mg/dL Total Bilirubin 3.6 H 0.2-1.0 mg/dL Aspartate Amino Transf (AST/SGOT) 85 H 10-37 U/L Alanine Aminotransferase (ALT/SGPT) 369 H 12-78 U/L Alkaline Phosphatase 98 50-136 U/L B-Type Natriuretic Peptide 4530 H 0-100 pg/mL Total Protein 5.4 L 6.0-8.3 g/dL Albumin 2.3 L 3.5-5.0 g/dL Blood Gas Specimen Type Arterial Arterial Blood pH 7.411 7.350-7.450 Arterial Blood Partial Pressure CO2 31 L 32-45 mmHg Arterial Blood Partial Pressure O2 60.8 L 83.0-108.0 mmHg Arterial Blood HCO3 18.9 L 21.0-28.0 mmol/L Arterial Blood Oxygen Saturation 91.9 L 94.0-98.0 % Arterial Blood Base Excess -4.4 L -2.0-3.0 mmol/L Blood Gas Temperature 37.0 35.5-37.0 CELSIUS Blood Gas Flow-by 14.00 0.00-15.00 L/min Blood Gas Vent Mode RR 14L OXYMIZER ROOM AIR FiO2 76.0 % Blood Gas Specimen Comment ARABELLA TOMLIN Activated Partial Thromboplast Time 55.5 H 26.3-35.5 SEC Lactic Acid Level 4.6 H 0.8-2.5 mmol/L Test 06/14/25 04:30 Range/Units Reactive Lymphocytes 1 H 0-0 % C-Reactive Protein, Quantitative 28.70 H 0.5-3.0 mg/L Procalcitonin 0.19 0.05-0.5 ng/mL ASSESSMENT: Hypoxic respiratory failure, requiring oxygen support. Multifocal pneumonia. Aortic valve Endocarditis. Sepsis. Gram positive bacteremia. Acute renal failure. Multifactorial encephalopathy, improving. Chronic obstructive pulmonary disease exacerbation. Chronic tobacco use. Atrial fibrillation. PLAN: Continue linezolid IV. Continue cefepime. Continue doxycycline. Continue GI prophylaxis. Continue bronchodilators. Continue oxygen support. Monitor renal function. This case was reviewed and discussed with my supervising physician Dr. Liang and the above assessment and plan was formulated and agreed upon. ATTESTATION BY PHYSICIAN I have seen and examined the patient. I reviewed the documentation, medical decision making, and treatment plan as noted by the mid-level provider above. I agree with the findings and plan of care. RIKY LIANG MD, [facility] Jun 15, 2025 17:25
--- NOTE | 2025-06-15 19:22 | NUR ---
Patient educated on bipap use. Patient being verbally aggressive toward staff.
[2025-06-16] VITALS (57 sets, daily range): BP systolic 77–135; BP diastolic 30–68; PULSE 15–119; RESP 13–123; TEMP 97.4–98.7; O2SAT 94–99
--- NOTE | 2025-06-16 02:53 | NUR ---
Pt refused to use BIPAP. However, pt not in distress or SOB. Pt on HFNC. BIPAP on standby
[2025-06-16 05:38] LABS: IMMATURE GRANULOCYTE ABSOLUTE 0.26 K/uL (0-1); NUCLEATED RED BLOOD CELLS 5.1 % (0.0-0.19); PLATELET COUNT (AUTO) 114 K/uL (130-400); RED BLOOD CELL COUNT(AUTO) 3.97 MIL/uL (4.00-5.50); RED CELL DISTRIBUTION WIDTH 20.5 % (11.0-15.5); WHITE BLOOD COUNT (AUTO) 16.1 K/uL (4.8-10.8)
[2025-06-16 06:04] LABS: ASPARTATE AMINOTRANSFERASE 82.0 U/L (10-37); CREATININE 2.3 mg/dL (0.5-1.0); GLOMERULAR FILTR. RATE CALC 23.0 mL/min (>90); GLUCOSE,RANDOM 216.0 mg/dL (70-105); PHOSPHORUS 5.3 mg/dL (2.5-4.9); SODIUM SERUM 138.0 mmol/L (136-145); TOTAL PROTEIN, SERUM 5.1 g/dL (6.0-8.3)
[2025-06-16 06:05] LABS: UREA NITROGEN, BLOOD 80.0 mg/dL (7-18)
[2025-06-16] MEDS ORDERED: PHARMACY COMMUNICATION MISC SCH ×2 (11:00→17:00)
--- NOTE | 2025-06-16 11:07 | PN ---
[facility] PROGRESS NOTE Date Patient Seen: Jun 16, 2025 Time of Visit: 10:59 Supervising Physician: [ Dr. Macias] Primary Care Physician: [Dr. Yoel Pierson] Outpatient Specialists: [ ] Inpatient Consults: [[facility] team-ICU ] PROBLEM LIST: Acute hypoxic respiratory failure present on admission Paroxysmal atrial fibrillation Respiratory Alkalosis Metabolic acidosis Sepsis 2/2 community acquired pneumonia Aortic valve vegetations Bacterial endocarditis with negative blood cultures Hepatic transaminitis NSTEMI-likely type II 2/2 demand ischemia from hypoxia vs. true cardiac russ [id number]-POA- negative for chest pain or ST/T wave abnormality. HEART score 6 points=12-16.6% risk for MACE Hyperlactatemia-POA Acute delirium Acute COPD exacerbation Emphysema secondary to tobacco use disorder Pulmonary edema Bilateral pleural effusions Chronic nicotine disorder: [id number] HX Prior CVA Hyperthyroid disorder/Graves disease with right thyroid nodule INTERVAL HISTORY: Patient seen and examined, patient awake with noted delirium. Patient continues edematous. Patient on supplemental O2, currently on high-flow BiPAP at night patient has refused Patient pending the HIDA scan and a VICK but unable due to unable to tolerate positioning Plan: We will continue to follow cardiology recommendations Continue Zyvox, Cefepime, and Doxy per ID Patient pending VICK unable to tolerate positioning for procedure Continue on supplemental O2, high-flow, BiPAP at night Continue to diurese, continue Lasix Renally adjust medications Avoid nephrotoxic Medications Will continue to monitor renal function and follow nephrology recommendations CM for LTAC, patient requiring mcc IV ABX therapy and continued 02 re quirement Repeat Blood CX Consult GI, hyperbilirubinemia Total critical care time spent 45 minutes, this excludes any procedures performed or any time spent in educational or teaching. REVIEW OF SYSTEMS: More awake today, able to answer questions and oriented to self and place. No other major complaints reported by the patient herself and most of the i nformation is obtained from nursing staff and medical records at bedside. PHYSICAL EXAM: GENERAL: oriented to self HEENT: EOMI, Sclera non icteric, dry mucosa NECK: Supple, no JVD, trachea midline LUNGS: Grossly clear, decreased air entry without wheezing HEART: Regular rate and rhythm. Normal S1 and S2, without murmurs, tachycardia ABD: Abdomen soft, nontender. Bowel sounds present EXT: No clubbing cyanosis or edema NEURO: Awake alert to self Vital Signs (last 8hr) Date Time Temp Pulse Resp B/P (MAP) Pulse Ox O2 Delivery O2 Flow Rate FiO2 06/16/25 08:23 85 18 HFNC Heated System N/Can 20.0 55 06/16/25 08:00 87 16 135/50 95 06/16/25 08:00 97 Hi-Flow N/C+ 30 65 06/16/25 08:00 97.3 06/16/25 06:26 85 20 06/16/25 04:00 97.5 06/16/25 04:00 94 Hi-Flow N/C+ 30 65 06/16/25 03:37 89 20 123/49 (73) 94 LABS: Hematology Labs: Test 06/16/25 05:15 06/15/25 06:15 Range/Units White Blood Count 16.1 H 4.8-10.8 K/uL Red Blood Count 3.97 L 4.00-5.50 MIL/uL Hemoglobin 9.6 L 12.0-16.0 g/dL Hematocrit 29.0 L 36-48 % Mean Corpuscular Volume 73.0 L 79-99 fL Mean Corpuscular Hemoglobin 24.2 L 27.0-33.0 pg Mean Corpuscular Hemoglobin Concent 33.1 32.0-36.0 g/dL Red Cell Distribution Width 20.5 H 11.0-15.5 % Platelet Count 114 L 130-400 K/uL Mean Platelet Volume 7.5-10.5 fL Immature Granulocyte % (Auto) 1.6 H 0-1 % Neutrophils (%) (Auto) 93.0 H 40.0-77.0 % Lymphocytes (%) (Auto) 0.2 L 21.0-51.0 % Monocytes (%) (Auto) 5.1 3.0-13.0 % Eosinophils (%) (Auto) 0.0 0.0-8.0 % Basophils (%) (Auto) 0.1 0.0-5.0 % Neutrophils # (Auto) 15.0 H 1.8-7.7 K/uL Lymphocytes # (Auto) 0.0 L 1.0-4.8 K/uL Monocytes # (Auto) 0.8 0.1-1.0 K/uL Eosinophils # (Auto) 0.00 0.00-0.70 K/uL Basophils # (Auto) 0.01 0.00-0.20 K/uL Absolute Immature Granulocyte (auto 0.26 0-1 K/uL Nucleated Red Blood Cells 5.1 H 0.0-0.19 % Segmented Neutrophils % 94 H 40-70 % Lymphocytes % (Manual) 4 L 22-44 % Monocytes % (Manual) 2 2-9 % Differential Comment MANUAL DIFFERENTIAL White Cell Morphology Comment VACUOLATION 1+ Platelet Morphology Comment ADEQUATE Red Blood Cell Morphology See comments Chemistry Labs: Test 06/16/25 08:45 06/16/25 05:15 Range/Units Lactic Acid Level 3.7 H 0.8-2.5 mmol/L C-Reactive Protein, Quantitative 21.70 H 0.5-3.0 mg/L Sodium Level 138 136-145 mmol/L Potassium Level 2.9 *L 3.5-5.1 mmol/L Chloride Level 102 101-111 mmol/L Carbon Dioxide Level 21 21-32 mmol/L Blood Urea Nitrogen 80 *H 7-18 mg/dL Creatinine 2.3 H 0.5-1.0 mg/dL Glomerular Filtration Rate Calc 23 >90 mL/min Random Glucose 216 H 70-105 mg/dL Total Calcium 7.5 L 8.5-10.1 mg/dL Phosphorus Level 5.3 H 2.5-4.9 mg/dL Magnesium Level 2.20 1.80-2.40 mg/dL Total Bilirubin 5.1 #H 0.2-1.0 mg/dL Aspartate Amino Transf (AST/SGOT) 82 H 10-37 U/L Alanine Aminotransferase (ALT/SGPT) 299 H 12-78 U/L Alkaline Phosphatase 96 50-136 U/L B-Type Natriuretic Peptide 3070 H 0-100 pg/mL Total Protein 5.1 L 6.0-8.3 g/dL Albumin 2.2 L 3.5-5.0 g/dL Coagulation Labs: Test 06/15/25 00:36 Range/Units Activated Partial Thromboplast Time 55.5 H 26.3-35.5 SEC DIAGNOSTICS / RADIOLOGY RESULTS: [ ] PLAN NEURO: Minimize central acting medications as possible. Fall Precautions. Well lighted room through the day and minimize interruptions through the night to prevent acute delirium. PULMONARY: Supplemental 02 as needed Titrate Fio2 to keep Spo2 > or = 90% DuoNebs and CPT as needed IS hourly while awake for pulmonary hygiene Out of bed to chair as tolerated VAP Bundle Vent/BIPAP Settings: [ ] Driving pressure: [ ] P Plat: [ ] Static C: [ ] Static R: [ ] P/F Ratio: [ ] CARDIOVASCULAR: Follow hemodynamics. Titrate vasopressor to keep MAP >65 or systolic blood pressure >95mmHg DRIPS: [Precedex] LINES: [ ] GI & NUTRITION: Continue nutritional support Aspirations precautions Prokinetic agents and laxatives as needed KIDNEYS & ELECTROLYTES: Strict monitoring of intake and output Daily weights Avoid nephrotoxic agents Monitor electrolytes and replace as needed Goal urine output of 30mL/hr or 0.5mL/kg/hr Urine output: [ ] Fluid Balance: [ ] ENDOCRINE: Maintain blood glucose between 100-180 at all times. Insulin sliding scale for blood glucose management INFECTIOUS DISEASE: Trend temperature. Dubois-culture if febrile. Micro: [ ] Antibiotics: [Vancomycin and Cefepime ] HEMATOLOGY & COAGULATION: Monitor H&H. Keep Hgb > 7 Transfuse 1 unit of PRBC for Hgb < 7 Transfuse 1 pack of platelets of platelets < 20, 000 Watch for any signs and symptoms of bleeding SKIN: Pressure ulcer prevention per facility protocol Rehab: PT/OT Prophylaxis: GI: [Pepcid ] DVT: [Heparin] Code Status: Full Resuscitation Disposition: [ICU] [facility] Jun 16, 2025 11:07
--- NOTE | 2025-06-16 12:31 | NUR ---
DC PLAN RECEIVED TRIGGER FOR LTAC. CM CHECKED NO POA IN ONE CONTENT. PATIENT HAS AN X SPOUSE. FRIEND THAT NORMALLY HELPS HER BUT NO POA. ONE SON IS WILLING TO SEE ABOUT DECISIONS BUT PATIENT HAS OTHER CHILDREN. [employer] TRYING TO GET INFO FOR OTHER CHILDREN TO GET MAJORITY ON PLAN OF CARE OR TO APPOINT ONE POINT OF CONTACT. ONCE WE CAN DETERMINE WHO CAN SIGN FOR PATIENT WHO AT THIS TIME IS CONFUSED WILL ASK ABOUT LTAC. CM WILL CONTINUE TO FOLLOW.
--- NOTE | 2025-06-16 13:56 | PN ---
[facility] PROGRESS NOTE Date of Service: Jun 16, 2025 Time of Service: 13:56 SUBJECTIVE: HISTORY OF PRESENT ILLNESS: This is a 69-year-old female past medical history of emphysema peripheral neuropathy, atrial fibrillation and hyperthyroidism who was brought by EMS to the ED for complaints of shortness of breaths,dry cough and generalized body weakness which started for the past 3 weeks and getting worse this past few days.Patient reports she lives alone and a current heavy cigarette smoker 1 pack/day.As per patient she has been going to her PCP every week x 3 weeks and was started on steroids prednisone and inhaler and patient also reports was admitted for having atrial fibrillation last 05/09/25 and was seen by at [facility] [place] 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 Seen and examined patient in the ER awake,alert and appears very short of breath,she has a friend at bedside and helping her from time to time with medical history as patient appears anxious as well.Patient denies chest pain,palpitation,nausea,vomiting and fever. Latest vital signs temperature 98.1, heart rate 110, respiration 35, blood pressure 140/56 saturation 96 on B iPAP 40% FiO2. Labs: WBC 19 with negative left shift of neutrophils 84, hemoglobin 9, hematocrit 30, platelet count 386. Sodium 122, chloride 93, CO2 18, BUN 23, glucose 140, lactic acid 3.1 troponin 112 BNP 3370. D-dimer 3746, PT 15, INR 1.4 PTT 28. Influenza type a and B negative SARS COVID negative. Chest x-ray result revealed bilateral perihilar and bibasilar airspace disease possibly representing pulmonary edema with small bilateral pleural effusion. [id number] cardiomegaly and pulmonary vascular congestion. While in the ER patient received Solu-Medrol 125 mg IV, albuterol two unit dose via inhalation, levofloxacin 750 mg IV, Protonix 40 mg, NS 500 mL bolus, Lasix 80 mg IV and morphine 2 mg IV. Patient was started on Precedex per ICU radha mmendation. Admit patient for further medical management. 06/09/2025: The patient was seen and evaluated bedside in ICU, no family at bedside. Patient is agitated, anxious on max doses of Precedex, saturating 100% with FiO2 60 on BiPAP. Patient is currently on norepinephrine drip 0.05 mcg/mL/kg and heparin drip q.[address] chest showed no pulmonary thromboembolism, small to medium pericardial effusion, cardiomegaly, pulmonary vascular congestion, pulmonary edema and multifocal pneumonia in bilateral lung alejandro. Continue Zosyn, doxycycline, IV Lasix, Solu-Medrol IV. Morning lab showed white count 17.4, sodium 124, bicarb 14, lactic acid 3.7, troponin 178, BNP 3060, AST 1479, ALT 561. Patient has bicarb deficit of 336, we ordered sodium bicarbonate 100 mEq single dose and we will repeat bicarb this evening. Nephrology, Cardiology, critical Care on board we will continue to follow the recommendations. 06/10/2025: The patient was seen and evaluated bedside in ICU, no family at bedside. Patient is currently on Precedex, norepinephrine drip. Abdominal ultrasound showed focal edematous wall thickening of gallbladder with minimal pericholecystic fluid, recommended HIDA scan if there is persistent clinical concern for cholecystitis. Lab showed white count trending down to 17.1, lactic acid trending down to 3, AST 3143, ALT 1515. Zosyn has been discontinued by Infectious Disease, patient was started on cefepime and vancomycin. Cardiology recommended transesophageal echocardiography once the patient become more stable. 06/11/2025: The patient was seen and evaluated bedside in ICU, no family at bedside. Patient is currently on one-to-one sitter. Patient continues to be on Precedex, norepinephrine, heparin drip. Morning lab shows white count 22.3, sodium 135, potassium 3.1, BUN 52, creatinine 1.5, fibrinogen 265, lactic acid trended down to 2, AST trended down to 946, ALT trended down to 1026. Blood culture shows no growth so far. Continue IV antibiotics as recommended by Infectious Disease. 06/12/2025: Patient was evaluated bedside in room 215 and several family members were present at the bedside. Patient also has 2 on 1 sitter. Patient was awake and alert but is mildly confused. Patient is still recovering from sepsis from community-acquired pneumonia and her white count remained stable at 22.4k. Patient oxygenating well via high-flow nasal cannula Oxymizer with flow rate of 5 L. Still continues on amiodarone drip due to AFib with telemetry consistent with Afib. Patient is still pending a HIDA scan and VICK due to her respiratory status. We will continue linezolid, cefepime and doxycycline and start to taper methylprednisolone as per critical Care recommendations. 06/13/2025: Patient was seen and evaluated in room 215, no family at bedside. Patient is awake, alert, oriented x3, saturating 96 % with Oxymizer. Patient says that she is feeling better, denies any new or worsening symptoms. Cardiology recommended discontinuing amiodarone drip, started patient on amiodarone 200 mg twice daily. Labs show white count trending down to 19.2, BNP trending down to 3180, AST trending down to 193, ALT trending down to 608. We w ill continue linezolid, cefepime, metronidazole and doxycycline. 06/14/2025: Patient was seen and evaluated in room 215, no family at bedside. Patient is awake, alert, saturating 90% with 10L nasal cannula. Morning labs show white count trending down to 15.1, BUN 55, creatinine 1.7, BNP 4680, lactic acid 4.6, AST trending down to 105, ALT trending down to 468. We will order li mited echocardiogram to check for aortic valve vegetations and ejection fraction. Continue oral amiodarone, Lasix, Solu-Medrol, linezolid, cefepime, metronidazole, doxycycline. Plan for VICK as per cardiology. Cardiology, Infectious Disease on board we will continue to follow their recommendations. 06/15/2025: Patient was seen and evaluated in room 215, no family at bedside. Patient is awake, alert, saturating 96% with high-flow nasal cannula. Morning labs show BNP 4530, BUN 77, creatinine 1.9, white count 15.8. Limited echocardiogram was done which shows LVEF 55-60%, multiple vegetations on aortic valve leaflets. IV Lasix has been increased to 40 mg Q 8 by critical care team. Cardiology recommended discontinuing midodrine, heparin drip and patient was started on Lovenox. Continue oral amiodarone, Lasix, Solu-Medrol, linezolid, cefepime, metronidazole, doxycycline. Plan for VIKC as per cardiology. Cardiology, Infectious Disease on board we will continue to follow their recommendations. 06/16/2025: Patient was seen and evaluated in room 215, no family at bedside. Patient is awake, alert, confused saturating 94% with high-flow nasal cannula. Morning labs show BNP trending down to 3070, lactic acid trending down to 3.7, potassium 2.9, BUN 80, creatinine 2.3. Negative Fluid balance today 600. We will replace potassium, continue oral amiodarone, IV Lasix, Solu-Medrol, l inezolid, cefepime, metronidazole, doxycycline. We will request case management for evaluation as patient will need long-term antibiotics for 4-6 weeks, critical care at discharge. Cardiology, Infectious Disease on board we will continue to follow their recommendations. REVIEW OF SYSTEMS CONSTITUTIONAL: Denies fevers, chills, or night sweats. No unintentional weight loss reported. NEUROLOGICAL: Denies headache, amaurosis fugax, motor weakness, sensory deficit, vertigo/spinning sensation, gait abnormalities, or tremors. ENT: No hearing loss, otalgia, otorrhea, rhinitis, rhinorrhea, hoarseness, or sore throat. CARDIOVASCULAR: Denies any exertional angina, dyspnea on exertion, orthopnea, paroxysmal nocturnal dyspnea, palpitations, life-threatening arrhythmias, afsaneh dication. PULMONARY: Complaints of shortness of breaths, dry cough and chest tightness x3 weeks Denies phlegm/sputum, hemoptysis, pleuritic chest pain. SLEEP: Denies morning headaches, daytime somnolence or napping. Denies difficulty falling asleep, staying asleep, waking from sleep. Denies knowledge of snoring. GASTROINTESTINAL: Denies any type of dysphagia to either liquids or solids. Denies nausea, vomiting, pyrosis, early satiety, abdominal pain, diarrhea, constipation, or changes in stool consistency or caliber. Denies coffee-ground emesis, hematemesis, hematochezia, or melanotic stools. GENITOURINARY: Denies frequency, urgency, nocturia, hematuria or incontinence (Storage/Irritative symptoms.) Low urinary stream, straining to void, urinary intermittency or hesitancy, splitting of the voiding stream, terminal dribbling. ENDOCRINOLOGIC: Denies polyuria, polydipsia, polyphagia or heat/cold intolerances. HEMATOLOGIC: Denies thrombophilia/previous clots, or coagulopathy/bleeding disorders. ONCOLOGIC: Denies personal history of malignancy. DERMATOLOGIC: Denies rashes or pruritus. PSYCHIATRIC: Denies any suicidal or homicidal ideation. Denies hallucinations. PHYSICAL EXAM GENERAL APPEARANCE: The patient is awake, alert, and oriented to self but not to place and time ,moderate respiratory distress NEUROLOGICAL: Cranial nerves II-XII grossly intact. Motor is 5/5 in bilateral upper and lower extremities proximal to distal. No sensory deficits. HEENT: Face is symmetric. Pupils are equal and reactive. Extraocular movements are intact. NECK: Supple. No JVD. No thyromegaly. No submental, submandibular, pre- /postauricular, occipital or supraclavicular lymphadenopathy. CHEST: Normal chest expansion. No Telemetry. LUNGS: tachypneic, with NC via Oxymizer CARDIOVASCULAR: Tachycardic Regular. S1 and S2 normal. No appreciable rubs, murmurs or gallops. ABDOMEN: Soft, nontender, and nondistended. There is no rebound, voluntary guarding, or rigidity. : Deferred. Gonzalze. EXTREMITIES: Non-edematous and not cyanotic. No clubbing. Good capillary refill. SKIN: No skin breakdown. Vital Signs (last 8hr) Date Time Temp Pulse Resp B/P (MAP) Pulse Ox O2 Delivery O2 Flow Rate FiO2 06/16/25 13:53 70 15 60 06/16/25 12:00 98.1 79 18 107/34 100 06/16/25 09:45 87 19 60 06/16/25 09:36 83 20 06/16/25 08:23 85 18 HFNC Heated System N/Can 20.0 55 06/16/25 08:00 87 16 135/50 95 06/16/25 08:00 97 Hi-Flow N/C+ 30 65 06/16/25 08:00 97.3 06/16/25 06:26 85 20 LABS: Laboratory: Test 06/16/25 13:04 06/16/25 08:45 06/16/25 05:15 06/15/25 06:15 Range/Units Lactic Acid Level 3.1 H 0.8-2.5 mmol/L C-Reactive Protein, Quantitative 21.70 H 0.5-3.0 mg/L White Blood Count 16.1 H 4.8-10.8 K/uL Red Blood Count 3.97 L 4.00-5.50 MIL/uL Hemoglobin 9.6 L 12.0-16.0 g/dL Hematocrit 29.0 L 36-48 % Mean Corpuscular Volume 73.0 L 79-99 fL Mean Corpuscular Hemoglobin 24.2 L 27.0-33.0 pg Mean Corpuscular Hemoglobin Concent 33.1 32.0-36.0 g/dL Red Cell Distribution Width 20.5 H 11.0-15.5 % Platelet Count 114 L 130-400 K/uL Mean Platelet Volume 7.5-10.5 fL Immature Granulocyte % (Auto) 1.6 H 0-1 % Neutrophils (%) (Auto) 93.0 H 40.0-77.0 % Lymphocytes (%) (Auto) 0.2 L 21.0-51.0 % Monocytes (%) (Auto) 5.1 3.0-13.0 % Eosinophils (%) (Auto) 0.0 0.0-8.0 % Basophils (%) (Auto) 0.1 0.0-5.0 % Neutrophils # (Auto) 15.0 H 1.8-7.7 K/uL Lymphocytes # (Auto) 0.0 L 1.0-4.8 K/uL Monocytes # (Auto) 0.8 0.1-1.0 K/uL Eosinophils # (Auto) 0.00 0.00-0.70 K/uL Basophils # (Auto) 0.01 0.00-0.20 K/uL Absolute Immature Granulocyte (auto 0.26 0-1 K/uL Nucleated Red Blood Cells 5.1 H 0.0-0.19 % Sodium Level 138 136-145 mmol/L Potassium Level 2.9 *L 3.5-5.1 mmol/L Chloride Level 102 101-111 mmol/L Carbon Dioxide Level 21 21-32 mmol/L Blood Urea Nitrogen 80 *H 7-18 mg/dL Creatinine 2.3 H 0.5-1.0 mg/dL Glomerular Filtration Rate Calc 23 >90 mL/min Random Glucose 216 H 70-105 mg/dL Total Calcium 7.5 L 8.5-10.1 mg/dL Phosphorus Level 5.3 H 2.5-4.9 mg/dL Magnesium Level 2.20 1.80-2.40 mg/dL Total Bilirubin 5.1 #H 0.2-1.0 mg/dL Aspartate Amino Transf (AST/SGOT) 82 H 10-37 U/L Alanine Aminotransferase (ALT/SGPT) 299 H 12-78 U/L Alkaline Phosphatase 96 50-136 U/L B-Type Natriuretic Peptide 3070 H 0-100 pg/mL Total Protein 5.1 L 6.0-8.3 g/dL Albumin 2.2 L 3.5-5.0 g/dL Segmented Neutrophils % 94 H 40-70 % Lymphocytes % (Manual) 4 L 22-44 % Monocytes % (Manual) 2 2-9 % Differential Comment MANUAL DIFFERENTIAL White Cell Morphology Comment VACUOLATION 1+ Platelet Morphology Comment ADEQUATE Red Blood Cell Morphology See comments Test 06/15/25 03:24 06/15/25 00:36 Range/Units Blood Gas Specimen Type Arterial Arterial Blood pH 7.411 7.350-7.450 Arterial Blood Partial Pressure CO2 31 L 32-45 mmHg Arterial Blood Partial Pressure O2 60.8 L 83.0-108.0 mmHg Arterial Blood HCO3 18.9 L 21.0-28.0 mmol/L Arterial Blood Oxygen Saturation 91.9 L 94.0-98.0 % Arterial Blood Base Excess -4.4 L -2.0-3.0 mmol/L Blood Gas Temperature 37.0 35.5-37.0 CELSIUS Blood Gas Flow-by 14.00 0.00-15.00 L/min Blood Gas Vent Mode RR 14L OXYMIZER ROOM AIR FiO2 76.0 % Blood Gas Specimen Comment ARABELLA TOMLIN Activated Partial Thromboplast Time 55.5 H 26.3-35.5 SEC Current Medications Medications (Trade) Dose Ordered Sig/Rossy Route PRN Reason Start Time Stop Time Status Last Admin Dose Admin Acetaminophen (TYLenol 325MG TAB) 650 mg Q4H PRN PO MILD PAIN (1-3) 06/08/25 20:30 07/08/25 20:29 06/12/25 10:16 650 MG Acetaminophen (TYLenol 325MG TAB) 650 mg Q6H PRN PO TEMPERATURE GREATER THAN 101.5 06/08/25 20:30 07/08/25 20:29 06/12/25 20:47 650 MG Albuterol (DUOneb) 1 udvial [id number] 06/08/25 22:00 07/08/25 21:59 06/16/25 13:55 1 UDVIAL Amiodarone HCl (pacERONE 200MG) 200 mg BID PO 06/13/25 21:00 07/13/25 20:59 06/16/25 08:22 200 MG Amiodarone HCl 540 mg/Dextrose 300 ml @ 16.667 mls/ hr PROTOCOL IV 06/12/25 10:00 06/13/25 03:59 DC 06/12/25 11:33 16.667 MLS/HR Amiodarone HCL/ Dextrose 100 ml @ 600 mls/hr PROTOCOL IV 06/12/25 05:00 06/12/25 06:53 DC 06/12/25 05:10 600 MLS/HR Amiodarone HCL/ Dextrose 100 ml @ 0 mls/hr PROTOCOL IV 06/12/25 07:00 06/12/25 07:01 DC Amiodarone HCL/ Dextrose 200 ml @ 33.333 mls/ hr PROTOCOL IV 06/12/25 05:00 06/12/25 06:53 DC 06/12/25 05:11 33.333 MLS/HR Budesonide (Pulmicort 0.5 Mg/2ml) 0.5 mg BIDRESP 06/09/25 18:00 07/09/25 17:59 06/16/25 06:26 0.5 MG Cefepime HCl (MAXipime 1 GM vial) 1 gm Q12H IVPB 06/10/25 14:00 06/10/25 14:35 DC 06/10/25 14:23 1 GM Cefepime HCl (MAXipime 1 GM vial) 1 gm Q12H9 IVPB 06/10/25 21:00 06/24/25 13:59 06/16/25 08:22 1 GM Cefepime HCl (MAXipime 1 GM vial) 1 gm Q8H IVPB 06/10/25 09:30 06/10/25 09:41 DC Dexmedetomidine/ Sodium Chloride (PRECEdex 200MCG/ 50ML-NS) 200 mcg PROTOCOL IV 06/16/25 11:30 07/16/25 11:29 Dexmedetomidine/ Sodium Chloride (PRECEdex 400MCG/ 100ML-NS) 400 mcg PROTOCOL IV 06/08/25 20:00 06/11/25 17:00 DC 06/11/25 09:27 400 MCG Dorzolamide/ Timolol (Cosopt Eye Drops) 1 DROP BID OP 06/09/25 21:00 07/09/25 20:59 06/16/25 08:23 1 ML Doxycycline Hyclate 250 ml @ 125 mls/hr Q12H IV 06/08/25 23:00 06/18/25 22:59 06/16/25 11:17 125 MLS/HR Enoxaparin Sodium (Lovenox (Pharmacy To Dose)) 1 unit Q24H SQ 06/15/25 14:00 06/15/25 14:01 DC Enoxaparin Sodium (Lovenox 80mg) 70 mg Q24H SQ 06/15/25 14:30 07/15/25 14:29 06/15/25 14:30 70 MG Famotidine (Pepcid 20mg Vial) 20 mg DAILY IV 06/09/25 09:00 06/09/25 13:09 DC 06/09/25 08:39 20 MG Fluticasone Propionate (FLOnase 50 mcg/ spray 16g bottle) 1 SPRAY DAILY EN 06/12/25 15:00 07/12/25 14:59 06/16/25 08:23 1 SPRAYS Furosemide (LASix 20MG VIAL) 20 mg BID IVP 06/12/25 09:00 06/12/25 09:19 DC 06/12/25 08:57 20 MG Furosemide (LASix 40MG VIAL) 20 mg BID IVP 06/11/25 21:00 06/12/25 06:54 DC 06/11/25 21:26 20 MG Furosemide (LASix 40MG VIAL) 40 mg BID IVP 06/08/25 21:00 06/11/25 17:00 DC 06/11/25 09:32 40 MG Furosemide (LASix 40MG VIAL) 40 mg BID IVP 06/12/25 21:00 06/14/25 13:19 DC 06/14/25 08:24 40 MG Furosemide (LASix 40MG VIAL) 40 mg Q8H6 IVP 06/14/25 14:00 07/12/25 20:59 06/16/25 05:02 40 MG Heparin Sodium (Porcine) (HEParin 5,000 UNIT VIAL) *calculation based on ACTUAL B... AD PRN IV HEPARIN PROTOCOL 06/09/25 04:00 06/15/25 14:01 DC Heparin Sodium/ Dextrose 250 ml @ 0 mls/hr Q6H IV 06/09/25 04:00 06/15/25 13:58 DC 06/15/25 02:42 4.7 MLS/HR Home Med (Home Medication) (Methimazole 5MG TAB) - 0.5 TAB... DAILY PO 06/10/25 09:00 07/10/25 08:59 06/16/25 08:23 1 EACH Lactulose (Constulose 20gm/ 30ml Udcup) 20 gm BID PRN PO CONSTIPATION 06/13/25 07:30 07/13/25 07:29 Latanoprost (Xalatan) 1 DROP HS OD 06/09/25 21:00 07/09/25 20:59 06/15/25 21:00 1 DROP Levofloxacin/ Dextrose 100 ml @ 100 mls/hr Q24H IV 06/09/25 20:00 06/08/25 22:40 DC Linezolid 300 ml @ 150 mls/hr Q12H IV 06/11/25 11:30 06/11/25 12:38 DC Linezolid 300 ml @ 150 mls/hr Q12H IV 06/11/25 14:30 06/21/25 14:29 06/16/25 02:38 150 MLS/HR Magnesium Sulfate 50 ml @ 0 mls/hr PROTOCOL PRN IV MAGNESIUM PROTOCOL 06/09/25 17:00 07/09/25 16:59 06/12/25 03:21 25 MLS/HR Methylprednisolone Sodium Succinate (Solu-medROL 40MG) 40 mg Q12H9 IVP 06/12/25 21:00 07/09/25 13:29 06/16/25 08:22 40 MG Methylprednisolone Sodium Succinate (Solu-medROL 40MG) 40 mg Q8H IVP 06/09/25 13:30 06/12/25 14:11 DC 06/12/25 13:23 40 MG Metoprolol Tartrate (loprESSOR) 2.5 mg Q6H PRN IV heart rate greater than 110 06/12/25 03:30 07/12/25 03:29 Metoprolol Tartrate (loprESSOR) 25 mg BID PO 06/12/25 21:00 07/12/25 20:59 06/16/25 08:20 25 MG Metronidazole/ Sodium Chloride 100 ml @ 100 mls/hr Q8H6 IVPB 06/10/25 14:00 06/20/25 13:59 06/16/25 05:02 100 MLS/HR Midodrine (PROAMatine 5 MG TABLET) 5 mg TID PO 06/10/25 14:00 06/11/25 08:52 DC 06/10/25 20:08 5 MG Midodrine (PROAMatine 5 MG TABLET) 10 mg TID PO 06/11/25 09:00 06/15/25 13:58 DC 06/14/25 21:14 10 MG Nicotine (Nicoderm) 21 mg DAILY TD 06/08/25 23:00 07/08/25 22:59 06/16/25 08:22 21 MG Norepinephrine 250 ml @ 0 mls/hr PROTOCOL IV 06/09/25 01:00 07/09/25 00:59 06/11/25 10:05 6.75 MLS/HR Olanzapine (ZyPREXA 5 mg tab) 5 mg BID PO 06/10/25 21:00 07/10/25 20:59 06/16/25 08:21 5 MG Ondansetron HCl (zoFRAN 4MG INJ) 4 mg Q6H PRN IV NAUSEA/VOMITING 06/08/25 20:30 07/08/25 20:29 Oseltamivir Phosphate (Tamiflu) 75 mg BID PO 06/09/25 21:00 06/10/25 09:08 DC 06/10/25 09:03 75 MG Pantoprazole Sodium (PROTonix 40MG INJ) 40 mg DAILY IVP 06/10/25 09:00 07/10/25 08:59 06/16/25 08:21 40 MG Pharmacy Profile Note (Pharmacy Communication) 1 each ONCE MISC 06/09/25 03:00 06/09/25 03:24 DC Pharmacy Profile Note (Pharmacy Communication) 1 each ONCE MISC 06/11/25 11:30 06/11/25 11:19 DC Pharmacy Profile Note (Pharmacy Communication) 1 each ONCE [facility] [place] 06/16/25 11:00 06/16/25 11:08 DC Phytonadione (Vitamin K 10mg/ 1ml Adult Vial) 10 mg DAILY SQ 06/11/25 09:00 06/13/25 15:00 DC 06/13/25 09:24 10 MG Phytonadione (Vitamin K 10mg/ 1ml Adult Vial) 10 mg Q24H SQ 06/10/25 15:00 06/10/25 16:55 DC 06/10/25 15:11 10 MG Piperacillin Sod/ Tazobactam Sod (Zosyn 3.375gm+NS 50ml) 3.375 gm Q8H IV 06/08/25 23:00 06/10/25 09:08 DC 06/10/25 07:10 3.375 GM Potassium Chloride 100 ml @ 50 mls/hr AD PRN IV POTASSIUM PROTOCOL 06/09/25 17:00 06/11/25 06:10 DC 06/09/25 21:18 50 MLS/HR Potassium Chloride 100 ml @ 100 mls/hr AD PRN IV POTASSIUM PROTOCOL 06/09/25 17:00 07/09/25 16:59 06/16/25 06:09 100 MLS/HR Potassium Chloride 100 ml @ 100 mls/hr AD PRN IV POTASSIUM PROTOCOL 06/16/25 12:00 07/16/25 11:59 Potassium Chloride (K-Dur/Klor-Con 20meq) 20 meq AD PRN PO POTASSIUM PROTOCOL 06/09/25 17:00 07/09/25 16:59 Potassium Chloride (KCl 10% Elixir 20meq/15ml) 20 meq AD PRN PO POTASSIUM PROTOCOL 06/09/25 17:00 07/09/25 16:59 Sodium Bicarbonate 150 meq/Sodium Chloride 1,150 ml @ 100 mls/hr [id number] IVP 06/09/25 12:00 06/09/25 12:29 DC Sodium Bicarbonate (Sodium Bicarbonate) 650 mg BID PO 06/13/25 11:30 06/13/25 11:58 DC Sodium Bicarbonate (Sodium Bicarbonate) 1,300 mg BID PO 06/13/25 21:00 07/13/25 20:59 06/16/25 08:21 1,300 MG Vancomycin HCl 250 ml @ 125 mls/hr Q24H IV 06/11/25 10:00 06/11/25 11:15 DC 06/11/25 09:31 125 MLS/HR Vancomycin HCl (Vancomycin Protocol) 1 each AD IV 06/10/25 09:30 06/11/25 11:15 DC Ziprasidone (Geodon) 10 mg Q6H PRN IM AGITATION/PSYCHOSIS 06/09/25 18:00 07/09/25 17:59 06/11/25 17:28 10 MG DIAGNOSTICS / RADIOLOGY: [ ] ASSESSMENT: Acute hypoxemic respiratory failure POA Sepsis secondary to community acquired pneumonia-POA Infective endocarditis involving the aortic valve- culture negative. Aortic insufficiency due to Multiple vegetations seen on the aortic valve leafelts. (2D echo 06/09/2025) Acute CHF exacerbation with possible pulmonary edema POA Elevated troponin likely due to type 2 demand ischemia POA Acute kidney injury Acute COPD exacerbation POA Nicotine Dependence POA Acute anemia POA Acute leukocytosis POA Moderate Hyponatremia and hypochloremia POA Hyperglycemia POA Lactic acidosis POA Hyperthyroidism POA Peripheral neuropathy POA History of emphysema POA History of atrial fibrillation not on anticoagulation PLAN: Acute hypoxemic respiratory failure POA On Presentation patient's respiratory rate 30, heart rate 108, saturating 96% with2 L nasal cannula Chest x-ray showed bilateral perihilar and bibasilar airspace disease Patient weaned off BiPAP and on nasal cannula via Oxymizer, continue DuoNeb q.4 Continue IV Solu-Medrol 40 mg q.12h IV Critical Care on board, we will follow the recommendations. Sepsis secondary to community acquired pneumonia-POA On presentation heart rate 108, respiratory rate 30, white count 19.7, lactic acid 3.1 Chest x-ray showed bilateral perihilar and bibasilar airspace disease CT chest showed multifocal pneumonia bilateral lungs, pulmonary vascular congestion, pulmonary edema Vancomycin was stopped by Infectious Disease, patient was started on linezolid IV q.12h , continue cefepime Continue doxycycline q.12h IV , metronidazole q.8 IV We will trend lactic acid Moderate Hyponatremia and hypochloremia POA On presentation sodium 122, chloride 93 Serum osmolality low at 274, urine osmolality normal, BNP 4530 Hyponatremia most likely due to fluid overload Continue IV Lasix 40 mg q8 Sodium today 138 Nephrology on board, we will follow the recommendations. Aortic insufficiency due to Multiple vegetations seen on the aortic valve leafelts. (2D echo 06/09/2025) 2D echocardiogram showed LVEF 50-55%, normal left ventricular diastolic function, normal right ventricular systolic function Multiple vegetations seen on aortic valve leaflets, difficulty to assess severity of aortic insufficiency, moderate mitral valve regurgitation BNP trended down to 3070 today Continue IV Lasix 40 mg q8 Vancomycin was stopped by Infectious Disease, patient was started on linezolid IV q.12h , continue cefepime Continue doxycycline q.12h IV, metronidazole q.8 IV Blood culture showed no growth so far We will Request consultation from Infectious Disease GI Prophylaxis with famotidine 20 mg IV daily DVT prophylaxis from SCDs ATTESTATION BY PHYSICIAN I have seen and examined the patient. I reviewed the documentation, medical decision making, and treatment plan as noted by the resident physician above. I agree with the findings and plan of care. MIKAYLA RAINES MD, ADIL SHAH QUADRI MD Jun 16, 2025 13:56
--- NOTE | 2025-06-16 13:59 | NUR ---
dcp: mitra Mars met with son Kyaw Mireles [phone]. Jerad educated on MPOA and Surrogate Decision Maker Law. Since pt has been in and out of confusion, she has not been appropriate for MPOA to be signed. Son states he has a brother Enrique Davis [phone] who is in agreement with Elle regarding treatment decisions for pt. Pt also has a daughter Barbara, but daughter and pt are not in good place right now and neither wants involvement in the other's life. Prior to today, pt was refusing pt be allowed to come to hospital to see her. Elle called bother Enrique and explained recommendation for Mitra. Enrique is in agreement and gave verbal consent for referral to be made. Elle signed ANSLEY. Jerad notified Juana BAKER of consent for referral.
--- NOTE | 2025-06-16 15:04 | PN ---
NEPHROLOGY PROGRESS NOTE Date/Time Patient Seen: Jun 16, 2025 SUBJECTIVE: This is a 69-year-old female past medical history of emphysema peripheral neuropathy, atrial fibrillation and hyperthyroidism who was brought by EMS to the ED for complaints of shortness of breaths,dry cough and generalized body weakness She was found to have endocarditis and respiratory distress. She continues to require supplemental oxygen and BiPAP at night. Pending HIDA scan and VICK, patient unable to tolerate positioning She remains on Lasix, 40 g IV [id number], Urine output was noted She continues on antibiotics as per ID She has had acute on chronic renal failure while in the hospital. Creatinine has been elevated in the patient is being seen as a follow up visit for all the above Hyponatremia has improved, she has been encouraged with fluid restriction She remains on midodrine for hypotension. Renal function remains elevated Electrolytes are noted, replacement has been ordered She was seen in the ICU Family at the bedside Prognosis remains guarded REVIEW OF SYSTEMS: GENERAL: Positive for shortness of breath NEUROLOGIC: Negative for any blurry vision, blind spots, double vision, facial asymmetry, dysphagia, dysarthria, hemiparesis, hemisensory deficits, vertigo, ataxia. HEENT: Negative for any head trauma, neck trauma, neck stiffness, photophobia, phonophobia, sinusitis, rhinitis. CARDIAC: Negative for any chest pain, dyspnea on exertion, paroxysmal nocturnal dyspnea, peripheral edema. PULMONARY: Negative for any shortness of breath, wheezing, COPD, or TB exposure. GASTROINTESTINAL: Negative for any abdominal pain, nausea, vomiting, bright red blood per rectum, melena. GENITOURINARY: Negative for any dysuria, hematuria, incontinence. INTEGUMENTARY: Negative for any rashes, cuts, insect bites. RHEUMATOLOGIC: Negative for any joint pains, photosensitive rashes, history of vasculitis or kidney problems. HEMATOLOGIC: Negative for any abnormal bruising, frequent infections or ble eding. Vital Signs (last 8hr) Date Time Temp Pulse Resp B/P (MAP) Pulse Ox O2 Delivery O2 Flow Rate FiO2 06/16/25 13:55 72 20 06/16/25 13:53 70 15 60 06/16/25 12:00 98.1 79 18 107/34 100 06/16/25 09:45 87 19 60 06/16/25 09:36 83 20 06/16/25 08:23 85 18 HFNC Heated System N/Can 20.0 55 06/16/25 08:00 87 16 135/50 95 06/16/25 08:00 97 Hi-Flow N/C+ 30 65 06/16/25 08:00 97.3 PHYSICAL EXAM: GENERAL: Alert and oriented x 3. No acute distress. Well-nourished. EYES: EOMI. Anicteric. HENT: Moist mucous membranes. No scleral icterus. No cervical lymphadenopathy. LUNGS: Clear to auscultation bilaterally. No accessory muscle use. CARDIOVASCULAR: Regular rate and rhythm. No murmur. No JVD. ABDOMEN: Soft, non-tender and non-distended. No palpable masses. EXTREMITIES: No edema. Non-tender. SKIN: No rashes or lesions. Warm. NEUROLOGIC: No focal neurological deficits. CN II-XII grossly intact, but not individually tested. PSYCHIATRIC: Cooperative. Appropriate mood and affect. Current Medications Medications (Trade) Dose Ordered Sig/Rossy Route Start Time Stop Time Status Last Admin Dose Admin Albuterol (DUOneb) 1 udvial [id number] IH 06/08/25 22:00 07/08/25 21:59 06/16/25 13:55 1 UDVIAL Amiodarone HCl (pacERONE 200MG) 200 mg BID PO 06/13/25 21:00 07/13/25 20:59 06/16/25 08:22 200 MG Amiodarone HCl 540 mg/Dextrose 300 ml @ 16.667 mls/ hr PROTOCOL IV 06/12/25 10:00 06/13/25 03:59 DC 06/12/25 11:33 16.667 MLS/HR Amiodarone HCL/ Dextrose 100 ml @ 600 mls/hr PROTOCOL IV 06/12/25 05:00 06/12/25 06:53 DC 06/12/25 05:10 600 MLS/HR Amiodarone HCL/ Dextrose 100 ml @ 0 mls/hr PROTOCOL IV 06/12/25 07:00 06/12/25 07:01 DC Amiodarone HCL/ Dextrose 200 ml @ 33.333 mls/ hr PROTOCOL IV 06/12/25 05:00 06/12/25 06:53 DC 06/12/25 05:11 33.333 MLS/HR Budesonide (Pulmicort 0.5 Mg/2ml) 0.5 mg BIDRESP IH 06/09/25 18:00 07/09/25 17:59 06/16/25 06:26 0.5 MG Cefepime HCl (MAXipime 1 GM vial) 1 gm Q12H IVPB 06/10/25 14:00 06/10/25 14:35 DC 06/10/25 14:23 1 GM Cefepime HCl (MAXipime 1 GM vial) 1 gm Q12H9 IVPB 06/10/25 21:00 06/24/25 13:59 06/16/25 08:22 1 GM Cefepime HCl (MAXipime 1 GM vial) 1 gm Q8H IVPB 06/10/25 09:30 06/10/25 09:41 DC Dexmedetomidine/ Sodium Chloride (PRECEdex 200MCG/ 50ML-NS) 200 mcg PROTOCOL IV 06/16/25 11:30 07/16/25 11:29 Dexmedetomidine/ Sodium Chloride (PRECEdex 400MCG/ 100ML-NS) 400 mcg PROTOCOL IV 06/08/25 20:00 06/11/25 17:00 DC 06/11/25 09:27 400 MCG Dorzolamide/ Timolol (Cosopt Eye Drops) 1 DROP BID OP 06/09/25 21:00 07/09/25 20:59 06/16/25 08:23 1 ML Doxycycline Hyclate 250 ml @ 125 mls/hr Q12H IV 06/08/25 23:00 06/18/25 22:59 06/16/25 11:17 125 MLS/HR Enoxaparin Sodium (Lovenox (Pharmacy To Dose)) 1 unit Q24H SQ 06/15/25 14:00 06/15/25 14:01 DC Enoxaparin Sodium (Lovenox 80mg) 70 mg Q24H SQ 06/15/25 14:30 07/15/25 14:29 06/16/25 14:39 70 MG Famotidine (Pepcid 20mg Vial) 20 mg DAILY IV 06/09/25 09:00 06/09/25 13:09 DC 06/09/25 08:39 20 MG Fluticasone Propionate (FLOnase 50 mcg/ spray 16g bottle) 1 SPRAY DAILY EN 06/12/25 15:00 07/12/25 14:59 06/16/25 08:23 1 SPRAYS Furosemide (LASix 20MG VIAL) 20 mg BID IVP 06/12/25 09:00 06/12/25 09:19 DC 06/12/25 08:57 20 MG Furosemide (LASix 40MG VIAL) 20 mg BID IVP 06/11/25 21:00 06/12/25 06:54 DC 06/11/25 21:26 20 MG Furosemide (LASix 40MG VIAL) 40 mg BID IVP 06/08/25 21:00 06/11/25 17:00 DC 06/11/25 09:32 40 MG Furosemide (LASix 40MG VIAL) 40 mg BID IVP 06/12/25 21:00 06/14/25 13:19 DC 06/14/25 08:24 40 MG Furosemide (LASix 40MG VIAL) 40 mg Q8H6 IVP 06/14/25 14:00 07/12/25 20:59 06/16/25 14:39 40 MG Heparin Sodium/ Dextrose 250 ml @ 0 mls/hr Q6H IV 06/09/25 04:00 06/15/25 13:58 DC 06/15/25 02:42 4.7 MLS/HR Home Med (Home Medication) (Methimazole 5MG TAB) - 0.5 TAB... DAILY PO 06/10/25 09:00 07/10/25 08:59 06/16/25 08:23 1 EACH Latanoprost (Xalatan) 1 DROP HS OD 06/09/25 21:00 07/09/25 20:59 06/15/25 21:00 1 DROP Levofloxacin/ Dextrose 100 ml @ 100 mls/hr Q24H IV 06/09/25 20:00 06/08/25 22:40 DC Linezolid 300 ml @ 150 mls/hr Q12H IV 06/11/25 11:30 06/11/25 12:38 DC Linezolid 300 ml @ 150 mls/hr Q12H IV 06/11/25 14:30 06/21/25 14:29 06/16/25 14:39 150 MLS/HR Methylprednisolone Sodium Succinate (Solu-medROL 40MG) 40 mg Q12H9 IVP 06/12/25 21:00 07/09/25 13:29 06/16/25 08:22 40 MG Methylprednisolone Sodium Succinate (Solu-medROL 40MG) 40 mg Q8H IVP 06/09/25 13:30 06/12/25 14:11 DC 06/12/25 13:23 40 MG Metoprolol Tartrate (loprESSOR) 25 mg BID PO 06/12/25 21:00 07/12/25 20:59 06/16/25 08:20 25 MG Metronidazole/ Sodium Chloride 100 ml @ 100 mls/hr Q8H6 IVPB 06/10/25 14:00 06/20/25 13:59 06/16/25 14:39 100 MLS/HR Midodrine (PROAMatine 5 MG TABLET) 5 mg TID PO 06/10/25 14:00 06/11/25 08:52 DC 06/10/25 20:08 5 MG Midodrine (PROAMatine 5 MG TABLET) 10 mg TID PO 06/11/25 09:00 06/15/25 13:58 DC 06/14/25 21:14 10 MG Nicotine (Nicoderm) 21 mg DAILY TD 06/08/25 23:00 07/08/25 22:59 06/16/25 08:22 21 MG Norepinephrine 250 ml @ 0 mls/hr PROTOCOL IV 06/09/25 01:00 07/09/25 00:59 06/11/25 10:05 6.75 MLS/HR Olanzapine (ZyPREXA 5 mg tab) 5 mg BID PO 06/10/25 21:00 07/10/25 20:59 06/16/25 08:21 5 MG Oseltamivir Phosphate (Tamiflu) 75 mg BID PO 06/09/25 21:00 06/10/25 09:08 DC 06/10/25 09:03 75 MG Pantoprazole Sodium (PROTonix 40MG INJ) 40 mg DAILY IVP 06/10/25 09:00 07/10/25 08:59 06/16/25 08:21 40 MG Pharmacy Profile Note (Pharmacy Communication) 1 each ONCE MISC 06/09/25 03:00 06/09/25 03:24 DC Pharmacy Profile Note (Pharmacy Communication) 1 each ONCE MISC 06/11/25 11:30 06/11/25 11:19 DC Pharmacy Profile Note (Pharmacy Communication) 1 each ONCE MISC 06/16/25 11:00 06/16/25 11:08 DC Phytonadione (Vitamin K 10mg/ 1ml Adult Vial) 10 mg DAILY SQ 06/11/25 09:00 06/13/25 15:00 DC 06/13/25 09:24 10 MG Phytonadione (Vitamin K 10mg/ 1ml Adult Vial) 10 mg Q24H SQ 06/10/25 15:00 06/10/25 16:55 DC 06/10/25 15:11 10 MG Piperacillin Sod/ Tazobactam Sod (Zosyn 3.375gm+NS 50ml) 3.375 gm Q8H IV 06/08/25 23:00 06/10/25 09:08 DC 06/10/25 07:10 3.375 GM Sodium Bicarbonate 150 meq/Sodium Chloride 1,150 ml @ 100 mls/hr [id number] IVP 06/09/25 12:00 06/09/25 12:29 DC Sodium Bicarbonate (Sodium Bicarbonate) 650 mg BID PO 06/13/25 11:30 06/13/25 11:58 DC Sodium Bicarbonate (Sodium Bicarbonate) 1,300 mg BID PO 06/13/25 21:00 07/13/25 20:59 06/16/25 08:21 1,300 MG Vancomycin HCl 250 ml @ 125 mls/hr Q24H IV 06/11/25 10:00 06/11/25 11:15 DC 06/11/25 09:31 125 MLS/HR Vancomycin HCl (Vancomycin Protocol) 1 each AD IV 06/10/25 09:30 06/11/25 11:15 DC LABORATORY: [ ] Hematology Labs: Test 06/16/25 05:15 06/15/25 06:15 Range/Units White Blood Count 16.1 H 4.8-10.8 K/uL Red Blood Count 3.97 L 4.00-5.50 MIL/uL Hemoglobin 9.6 L 12.0-16.0 g/dL Hematocrit 29.0 L 36-48 % Mean Corpuscular Volume 73.0 L 79-99 fL Mean Corpuscular Hemoglobin 24.2 L 27.0-33.0 pg Mean Corpuscular Hemoglobin Concent 33.1 32.0-36.0 g/dL Red Cell Distribution Width 20.5 H 11.0-15.5 % Platelet Count 114 L 130-400 K/uL Mean Platelet Volume 7.5-10.5 fL Immature Granulocyte % (Auto) 1.6 H 0-1 % Neutrophils (%) (Auto) 93.0 H 40.0-77.0 % Lymphocytes (%) (Auto) 0.2 L 21.0-51.0 % Monocytes (%) (Auto) 5.1 3.0-13.0 % Eosinophils (%) (Auto) 0.0 0.0-8.0 % Basophils (%) (Auto) 0.1 0.0-5.0 % Neutrophils # (Auto) 15.0 H 1.8-7.7 K/uL Lymphocytes # (Auto) 0.0 L 1.0-4.8 K/uL Monocytes # (Auto) 0.8 0.1-1.0 K/uL Eosinophils # (Auto) 0.00 0.00-0.70 K/uL Basophils # (Auto) 0.01 0.00-0.20 K/uL Absolute Immature Granulocyte (auto 0.26 0-1 K/uL Nucleated Red Blood Cells 5.1 H 0.0-0.19 % Segmented Neutrophils % 94 H 40-70 % Lymphocytes % (Manual) 4 L 22-44 % Monocytes % (Manual) 2 2-9 % Differential Comment MANUAL DIFFERENTIAL White Cell Morphology Comment VACUOLATION 1+ Platelet Morphology Comment ADEQUATE Red Blood Cell Morphology See comments Chemistry Labs: Test 06/16/25 13:04 06/16/25 08:45 06/16/25 05:15 Range/Units Lactic Acid Level 3.1 H 0.8-2.5 mmol/L C-Reactive Protein, Quantitative 21.70 H 0.5-3.0 mg/L Sodium Level 138 136-145 mmol/L Potassium Level 2.9 *L 3.5-5.1 mmol/L Chloride Level 102 101-111 mmol/L Carbon Dioxide Level 21 21-32 mmol/L Blood Urea Nitrogen 80 *H 7-18 mg/dL Creatinine 2.3 H 0.5-1.0 mg/dL Glomerular Filtration Rate Calc 23 >90 mL/min Random Glucose 216 H 70-105 mg/dL Total Calcium 7.5 L 8.5-10.1 mg/dL Phosphorus Level 5.3 H 2.5-4.9 mg/dL Magnesium Level 2.20 1.80-2.40 mg/dL Total Bilirubin 5.1 #H 0.2-1.0 mg/dL Aspartate Amino Transf (AST/SGOT) 82 H 10-37 U/L Alanine Aminotransferase (ALT/SGPT) 299 H 12-78 U/L Alkaline Phosphatase 96 50-136 U/L B-Type Natriuretic Peptide 3070 H 0-100 pg/mL Total Protein 5.1 L 6.0-8.3 g/dL Albumin 2.2 L 3.5-5.0 g/dL Coagulation Labs: Test 06/15/25 00:36 Range/Units Activated Partial Thromboplast Time 55.5 H 26.3-35.5 [facility]: [place] [id number] [address] IMAGING REPORT Signed PATIENT: HUGO WYLIE MR#: [id number] : 1955 SEX: F AGE: 69 LOCATION: [facility] ORDER 1126 STATUS: ADM IN REPORT#: [id number] SERVICE 1123 REASON: check for aortic valve vegatations and EF ORDERING PHYSICIAN: KINSEY TENORIO MD PROCEDURE: ECHO FU LD - ECHO 2-D F/U-LTD APPROVED REPORT EXAM: Limited 3D/Two-dimensional echocardiogram with color Doppler. INDICATION ICD: Assess aortic valvular vegetation and assess ejection fraction 2D Dimensions LVED Vol(simp.) 139.0 mL LVES Vol(simp.) 59.0 mL LVEF(%, simp.) 58 % Deformation Strain Apical 4 -14.5 % Apical 2 -19.7 % Apical 3 -19.3 % Global Strain -17.8 % Left Ventricle Left ventricular cavity size is normal. GLS -18.0% There is normal left ventricular wall thickness. LVEF is 55-60%. Aortic Valve Aortic valve is trileaflet and opens well. Multiple vegeations seen on the aortic valve lealfelts. Large RCC leaflet vegetation seen protruding into the LVOT. Small vegetations seen on the LCC/NCC leaflets. No significant changed seen compared to previous echocardiogram. Other Information Quality : Limited/Follow-up DICTATED BY: JOHN VERA MD DATE: 06/14/251319 ELECTRONICALLY SIGNED BY: JOHN VERA MD DATE: 06/14/252036 PATIENT: HUGO WYLIE MR#: [id number] : 1955 SEX: F AGE: 69 LOCATION: [facility] ORDER 8 STATUS: ADM IN REPORT#: [id number] SERVICE 6 REASON: pulmonary congestion ORDERING PHYSICIAN: KINSEY TENORIO MD PROCEDURE: CXR1VW - CHEST 1VW EXAM: CR CHEST, 1 VIEW CLINICAL HISTORY: pulmonary congestion ,CHF COMPARISON: CR: CHEST 1VW dated 06/12/2025 06:14 AM EST: TECHNIQUE: Single frontal radiograph of the chest was obtained. FINDINGS: Lines/Devices: A right PICC is present with its tip seen at the proximal part of the superior vena cava. Lungs: Progressive course as regards the previously noted bilateral interstitial and patchy airspace opacities., more evident at the lower lobes. Newly developed blunted left costophrenic angle suggestive of a mild left pleural effusion. There is no pneumothorax. Mediastinum and cardiovascular structures: The cardiac silhouette is mildly enlarged. Prominent aortic knuckle is noted. The central airway and mediastinal contours are otherwise unremarkable. Bones and soft tissues: Evidence of fixation of the lower cervical spine is noted. Soft tissues are unremarkable. IMPRESSION: 1. Progressive bilateral bilateral interstitial and patchy airspace opacities, more evident at the lower lobes. 2. Newly developed blunted left costophrenic angle suggestive of a mild left pleural effusion. 3. Mild cardiomegaly. 4. Stable prominent aortic knuckle. 5. As compared to the CR: CHEST 1VW dated 06/12/2025 06:14 AM EST: , progressive course as regards the previously noted bilateral interstitial as well as patchy pulmonary opacities,stationary course as regards the cardiomegaly. Right PICC still seen in situ. Newly developed minimal left pleural effusion. /[place] DICTATED BY: GIANLUCA ADAN MD DATE: 06/14/252251 ELECTRONICALLY SIGNED BY: GIANLUCA ADAN MD DATE: 06/14/252251 PATIENT: HUGO WYLIE MR#: [id number] : 1955 SEX: F AGE: 69 LOCATION: [facility] ORDER 2300 STATUS: ADM IN REPORT#: [id number] SERVICE 0600 REASON: CHF ORDERING PHYSICIAN: VY FOOTE MD PROCEDURE: CXR1VW - CHEST 1VW EXAM: CR Chest, 1 View. CLINICAL HISTORY: CHF COMPARISON: 06/11/2025 FINDINGS: The right PICC line tip is at the SVC. LUNGS: Interval improvement in the bilateral interstitial and patchy airspace opacities. PLEURAL SPACES: No pleural effusion or pneumothorax. MEDIASTINUM: Mild stable cardiomegaly with pulmonary vascular congestion. BONES: No aggressive appearing osseous lesion seen. Cervical spine fusion hardware. IMPRESSION: 1. Bilateral interstitial and patchy airspace opacities, reduced since the prior study. 2. Mild stable cardiomegaly. 3. Right PICC line tip at the SVC. /[place] DICTATED BY: DARREL GEORGE Jr., MD DATE: 06/12/251035 ELECTRONICALLY SIGNED BY: DARREL GEORGE Jr., MD DATE: 06/12/251035 PATIENT: HUGO WYLIE MR#: [id number] : 1955 SEX: F AGE: 69 LOCATION: [facility] ORDER 1204 STATUS: ADM IN REPORT#: [id number] SERVICE 1203 REASON: PICC placement ORDERING PHYSICIAN: VY FOOTE MD PROCEDURE: CXR1VW - CHEST 1VW CHEST 1VW REASON: PICC placement COMPARISON: Prior chest radiograph from 06/08/2025 is available. FINDINGS: Single view of the chest was obtained. There is cardiomegaly. There is diffuse interstitial pulmonary edema. There is a right-sided PIC catheter with tip in distal superior vena cava.. Mediastinum and bony thorax appear unremarkable. There is surgical changes with interpedicular screws and rods in the cervical spine there is anterior cervical disc fusion with orthopedic plate IMPRESSION: 1. The PICC catheter with the tip in the distal superior vena cava in satisfactory position 2. Cardiomegaly with interstitial pulmonary edema DICTATED BY: NARCISO ANTONIO MD DATE: 06/09/25 1228 ELECTRONICALLY SIGNED BY: NARCISO ANTONIO MD DATE: 06/09/25 1233 PATIENT: HUGO WYLIE MR#: [id number] : 1955 SEX: F AGE: 69 LOCATION: [facility] ORDER 16 STATUS: ADM IN REPORT#: [id number] SERVICE 0000 REASON: acute chf exacerbation sob ORDERING PHYSICIAN: RIGOBERTO TADEO PROCEDURE: ECHO CMP - ECHO 2-D COMPLETE APPROVED REPORT EXAM: Two-dimensional and M-mode echocardiogram with Doppler and color Doppler. INDICATION ICD: Acute congestive heart failure, shortness of breath 2D Dimensions RVDd 3.1 cm LVEF(%) 26.1 (>50%) LA ESV INDEX (BP) 35.28 mL/m2 IVSd 1.0 (0.7-1.1cm) FS(%) 12 % LVDd 5.0 (3.8-5.6cm) LA (2D) 4.3 (1.6-4.0cm) PWd 1.0 (0.7-1.1cm) Ao Root(2D) 3.4 (2.0-3.7cm) IVSs 1.0 cm LVOT diam 1.9 (1.8-2.4cm) LVDs 4.4 (2.5-4.0cm) PWs 1.6 cm Aortic Valve AoV Vmax 2.2 m/s Ao Peak GR 18.9 mmHg LVOT Vmax 1.6 m/s AoV VTI 0.3 m Ao Mean GR 9.2 mmHg LVOT VTI 0.24 m PATTIE (VMAX) 2.03 cm2 Al P1/2T 129 ms PATTIE (VTI) 2.0 cm2 Mitral Valve MV E Vmax 144.1 cm/s DECEL Time 105 ms MV A Vmax 82.2 cm/s P 1/2 T 34 ms E/A ratio 1.8 MVA (PHT) 6.5 cm2 TDI E/E' Medial 31.4 E/E' Lateral 15.7 Medial E' Peak V 4.59 cm/s Lateral E' Peak V 9.15 cm/s Pulmonary Valve PV Vmax 1.1 m/s PV Mean GR 2.1 mmHg PV Peak GR 4.6 mmHg Tricuspid Valve TR Vmax 2.1 m/s RAP (EST) 8 mmHg RVSP 26.1 mmHg TR Peak GR 18.1 mmHg Left Ventricle The left ventricle is normal size. There is normal LV segmental wall motion. There is normal left ventricular wall thickness. LVEF is 50-55%. The left ventricular diastolic function is normal. Right Ventricle The right ventricle is normal size. The right ventricular systolic function is normal. Atria The left atrium is mildly dilated. The right atrium is mildly dilated. Aortic Valve Aortic valve is trileaflet and opens well. Difficult to assess severity of aortic insufficiency. Would estimate [id number] Multiple vegetations seen on the aortic valve leafelts. Large Right coronary cusp leaflet vegetation seen protruding into the LVOT. Small non coronary cusp leaflet vegetation seen. Small left coronary cusp leaflet vegetation noted. There is no aortic valvular stenosis. Mitral Valve The mitral valve is normal in structure. There is moderate mitral valve regurgitation noted. There is no mitral valve stenosis. Tricuspid Valve The tricuspid valve is normal in structure. There is no tricuspid valve regurgitation noted. Pulmonic Valve The pulmonary valve is normal in structure. There is mild pulmonic valvular regurgitation. Great Vessels The aortic root is normal in size. IVC is not well visualized. Pericardium There is trivail pericardial effusion seen posteriorly Other Information Quality : Technically challenging study due to body habitus and limited cooperation of pt Conclusion LVEF is 50-55%. LVEF is 50-55%. Multiple vegetations seen on the aortic valve leafelts. Large Right coronary cusp leaflet vegetation seen protruding into the LVOT. Small non coronary cusp leaflet vegetation seen. Small left coronary cusp leaflet vegetation noted. Difficult to assess severity of aortic insufficiency. Would estimate [id number] There is moderate mitral valve regurgitation noted. DICTATED BY: BEN BROWN MD DATE: 06/09/25 0723 ELECTRONICALLY SIGNED BY: BEN BROWN MD DATE: 06/09/25 1314 PATIENT: HUGO WYLIE MR#: [id number] : 1955 SEX: F AGE: 69 LOCATION: [facility] ORDER 29 STATUS: ADM IN REPORT#: [id number] SERVICE 28 REASON: r/p P.E. ORDERING PHYSICIAN: JOHN NGUYEN PROCEDURE: CHES PE - CT CHEST PE PROTOCOL WWO CONT EXAM: CTA examination of the chest CLINICAL HISTORY: Rule out pulmonary embolism. TECHNIQUE: Postcontrast thin collimated axial CTA images of the chest were obtained with sagittal and coronal reformatted images also submitted. CT scan is done according to ALARA (As Low as Reasonably Achievable). COMPARISON: None provided. FINDINGS: Moderate pleural effusions bilaterally. Compressive atelectasis and consolidations in the bilateral lower lobes of the lung. Multifocal infiltrates and smooth interstitial thickening in the bilateral lung alejandro, reflecting multifocal pneumonia and pulmonary edema. No pneumothorax or masses evident. Small to medium pericardial effusion. Mild to moderate cardiomegaly. Calcific atherosclerotic disease in the thoracic aorta and coronary arteries. No thoracic aortic aneurysm. Dilated pulmonary trunk measures up to 4.4 cm in diameter. Perihilar vascular congestion. No filling defect or pulmonary thromboembolism is evident Mildly reactive mediastinal lymph nodes. Incidental thyroid nodules. Incidental mildly thickened bilateral adrenal glands. Atherosclerotic calcifications in the abdominal vessels. No acute bony abnormality is evident. Degenerative osseous changes. Chronic compression fracture in the T12 vertebral body with about 70% to 80% height reduction. IMPRESSION: No pulmonary thromboembolism. Small to medium pericardial effusion, cardiomegaly, pulmonary vascular congestion, pulmonary edema, and multifocal pneumonia in the bilateral lung alejandro. Moderate pleural effusions bilaterally. Compressive atelectasis and consolidations in the bilateral lower lobes of the lung. Mildly reactive mediastinal lymph nodes. No pneumothorax. Incidental thyroid nodules recommend ultrasound correlation. Incidental mildly enlarged bilateral adrenal glands, recommend a contrast-enhanced MRI of the adrenals for further characterization, if clinically indicated. /[place] DICTATED BY: DARREL GEORGE Jr., MD DATE: 06/09/25155 ELECTRONICALLY SIGNED BY: DARREL GEORGE Jr., MD DATE: 06/09/25155 PATIENT: HUGO WYLIE MR#: [id number] : 1955 SEX: F AGE: 69 LOCATION: [facility] ORDER 51 STATUS: REG ER REPORT#: [id number] SERVICE 49 REASON: SHORTNESS A BREATH ORDERING PHYSICIAN: OLVIN DING PROCEDURE: CXR1VW - CHEST 1VW EXAM: CR Chest, 1 View. CLINICAL HISTORY: SHORTNESS A BREATH COMPARISON: None provided. FINDINGS: There is bilateral perihilar and bibasilar airspace disease that may reflect pulmonary edema. Small bilateral pleural effusions. No pneumothorax. Mild to moderate cardiomegaly and pulmonary vascular congestion. IMPRESSION: 1. Bilateral perihilar and bibasilar airspace disease, possibly representing pulmonary edema, with small bilateral pleural effusions. 2. Mild to moderate cardiomegaly and pulmonary vascular congestion. /[place] DICTATED BY: DARREL GEORGE Jr., MD DATE: 06/08/251949 ELECTRONICALLY SIGNED BY: DARREL GEORGE Jr., MD DATE: 06/08/251949 ASSESSMENT: Hyponatremia Acute on chronic renal failure Acute hypoxic resp failure requiring BIPAP-POA Sepsis 2/2 community acquired pneumonia-POA NSTEMI-likely type II 2/2 demand ischemia from hypoxia vs. true cardiac etiology-POA- negative for chest pain or ST/T wave abnormality. HEART score 6 points=12-16.6% risk for MACE Possible new-onset CHF with exacerbation-POA Hyperlactatemia-POA Acute infectious encephalopathy-POA Suspected new-onset COPD with exacerbation-POA, in the setting of chronic nicotine disorder Pulmonary edema-POA Bilateral pleural effusions-POA Moderate hyponatremia, suspected acute-POA Sleep deprivation 2/2 current illness-POA History of paroxysmal AFib Chronic nicotine disorder: 90-uyli-hcya HX Prior CVA Neck and back surgery Detached retina Hyperthyroid disorder/Graves disease with right thyroid nodule HX of left greater trochanter fracture Medical non-compliance, HX of AMA last hospitalization in [facility] PLAN: Labs, diagnostic, radiologic exams reviewed and interpreted by myself and supervising physician. We have reviewed external records in detail Continue with diuretics. Require close monitoring of renal function and electrolytes Order CBC, CMP, and electrolytes in am Continue with antibiotics as per ID BiPAP as necessary, for respiratory distress IV pressors as needed Monitor blood pressure adjust medication doses as needed Avoid hypotensive episodes May use Dilaudid 0.5 mg IV every 6 hours as needed for severe pain Monitor blood sugars Strict intake, output, and daily weight should be monitored Please renally adjust medications Avoid nephrotoxic and nonsteroidal drugs Avoid contrast if possible Will continue to monitor renal function, anemia, electrolytes Treatment plan discussed with patient Questions were answered We have discussed with the other team physicians in detail about the care plan We will continue to monitor the patient closely Total critical care time spent with patient, nursing staff, critical care team over 35 minutes ATTESTATION BY PHYSICIAN I have seen and examined the patient. I reviewed the documentation, medical decision making, and treatment plan as noted by the mid-level provider above. I agree with the findings and plan of care. FLAVIA METCALF MD, [facility] Jun 16, 2025 15:04
--- NOTE | 2025-06-16 15:53 | NUR ---
[facility] ICU Skin Assessment: Patient assessed by wound healing team. Patient with no wounds or skin breakdown noted. Assessment and recommendations provided to primary nurse. Education provided.
[2025-06-16 15:56] LABS: PHOSPHORUS 6.1 mg/dL (2.5-4.9)
--- NOTE | 2025-06-16 17:15 | PN ---
INFECTIOUS DISEASE PROGRESS NOTE Date of Service: Jun 16, 2025 SUBJECTIVE: Patient is on continuous BiPAP and on Precedex today. Was asleep during visit today. Patient continues on Solu-Medrol and scheduled IV diuretics. No fever, temperature is 98.1. Liver function enzymes have improved. Continues on linezolid, cefepime and doxycycline. PHYSICAL EXAM EYES: Anicteric. Pupils equal and reactive. HENT: No oral thrush seen, moist Oral mucosa. NECK: Supple, no JVD or thyromegaly. LUNGS: Continuous BiPAP.. CARDIOVASCULAR: S1, S2 regular. No murmur heard. ABDOMEN: Soft, non tender, bowel sounds present. CENTRAL NERVOUS SYSTEM: On Precedex.. SKIN: No rashes, no swelling. LYMPHATICS: No peripheral lymphadenopathy. MUSCULOSKELETAL: No joint swelling, erythema or tenderness. EXTREMITIES: No cyanosis or clubbing. BACK: No deformity, no pressure ulcer. GENITOURINARY: No dysuria or hematuria. Gonzalez catheter. Vital Sign (Last 12 Hours) 06/16/25 06/16/25 06/16/25 06/16/25 06:26 08:00 08:00 08:00 Temp 97.3 Pulse 85 87 Resp 20 16 B/P (MAP) 135/50 Pulse Ox 97 95 O2 Delivery Hi-Flow N/C+ O2 Flow Rate 30 FiO2 65 06/16/25 06/16/25 06/16/25 06/16/25 08:23 09:36 09:45 12:00 Pulse 85 83 87 Resp 18 20 19 Pulse Ox 97 O2 Delivery HFNC Heated System N/Can Hi-Flow N/C+ O2 Flow Rate 20.0 30 FiO2 55 60 65 06/16/25 06/16/25 06/16/25 06/16/25 12:00 13:53 13:55 16:00 Temp 98.1 98.4 Pulse 79 70 72 15 Resp 18 15 20 18 B/P (MAP) 107/34 90/37 Pulse Ox 100 100 FiO2 60 06/16/25 16:00 Pulse Ox 97 O2 Delivery Hi-Flow N/C+ O2 Flow Rate 30 FiO2 65 Intake & Output (last 24hrs) 06/15/25 06/15/25 06/16/25 15:00 23:00 07:00 Intake Total 150.0 ml 650.0 ml Output Total 800 ml 600 ml Balance -650.0 ml 50.0 ml LABS: Laboratory: Test 06/16/25 15:36 06/16/25 13:04 06/16/25 08:45 06/16/25 05:15 Range/Units Potassium Level 3.4 L 3.5-5.1 mmol/L Phosphorus Level 6.1 H 2.5-4.9 mg/dL Magnesium Level 2.10 1.80-2.40 mg/dL Lactic Acid Level 3.1 H 0.8-2.5 mmol/L C-Reactive Protein, Quantitative 21.70 H 0.5-3.0 mg/L White Blood Count 16.1 H 4.8-10.8 K/uL Red Blood Count 3.97 L 4.00-5.50 MIL/uL Hemoglobin 9.6 L 12.0-16.0 g/dL Hematocrit 29.0 L 36-48 % Mean Corpuscular Volume 73.0 L 79-99 fL Mean Corpuscular Hemoglobin 24.2 L 27.0-33.0 pg Mean Corpuscular Hemoglobin Concent 33.1 32.0-36.0 g/dL Red Cell Distribution Width 20.5 H 11.0-15.5 % Platelet Count 114 L 130-400 K/uL Mean Platelet Volume 7.5-10.5 fL Immature Granulocyte % (Auto) 1.6 H 0-1 % Neutrophils (%) (Auto) 93.0 H 40.0-77.0 % Lymphocytes (%) (Auto) 0.2 L 21.0-51.0 % Monocytes (%) (Auto) 5.1 3.0-13.0 % Eosinophils (%) (Auto) 0.0 0.0-8.0 % Basophils (%) (Auto) 0.1 0.0-5.0 % Neutrophils # (Auto) 15.0 H 1.8-7.7 K/uL Lymphocytes # (Auto) 0.0 L 1.0-4.8 K/uL Monocytes # (Auto) 0.8 0.1-1.0 K/uL Eosinophils # (Auto) 0.00 0.00-0.70 K/uL Basophils # (Auto) 0.01 0.00-0.20 K/uL Absolute Immature Granulocyte (auto 0.26 0-1 K/uL Nucleated Red Blood Cells 5.1 H 0.0-0.19 % Sodium Level 138 136-145 mmol/L Chloride Level 102 101-111 mmol/L Carbon Dioxide Level 21 21-32 mmol/L Blood Urea Nitrogen 80 *H 7-18 mg/dL Creatinine 2.3 H 0.5-1.0 mg/dL Glomerular Filtration Rate Calc 23 >90 mL/min Random Glucose 216 H 70-105 mg/dL Total Calcium 7.5 L 8.5-10.1 mg/dL Total Bilirubin 5.1 #H 0.2-1.0 mg/dL Aspartate Amino Transf (AST/SGOT) 82 H 10-37 U/L Alanine Aminotransferase (ALT/SGPT) 299 H 12-78 U/L Alkaline Phosphatase 96 50-136 U/L B-Type Natriuretic Peptide 3070 H 0-100 pg/mL Total Protein 5.1 L 6.0-8.3 g/dL Albumin 2.2 L 3.5-5.0 g/dL Test 06/15/25 06:15 06/15/25 03:24 06/15/25 00:36 Range/Units Segmented Neutrophils % 94 H 40-70 % Lymphocytes % (Manual) 4 L 22-44 % Monocytes % (Manual) 2 2-9 % Differential Comment MANUAL DIFFERENTIAL White Cell Morphology Comment VACUOLATION 1+ Platelet Morphology Comment ADEQUATE Red Blood Cell Morphology See comments Blood Gas Specimen Type Arterial Arterial Blood pH 7.411 7.350-7.450 Arterial Blood Partial Pressure CO2 31 L 32-45 mmHg Arterial Blood Partial Pressure O2 60.8 L 83.0-108.0 mmHg Arterial Blood HCO3 18.9 L 21.0-28.0 mmol/L Arterial Blood Oxygen Saturation 91.9 L 94.0-98.0 % Arterial Blood Base Excess -4.4 L -2.0-3.0 mmol/L Blood Gas Temperature 37.0 35.5-37.0 CELSIUS Blood Gas Flow-by 14.00 0.00-15.00 L/min Blood Gas Vent Mode RR 14L OXYMIZER ROOM AIR FiO2 76.0 % Blood Gas Specimen Comment ARABELLA TOMLIN Activated Partial Thromboplast Time 55.5 H 26.3-35.5 SEC ASSESSMENT: Hypoxic respiratory failure, requiring BiPAP support. Multifocal pneumonia. Aortic valve Endocarditis. Sepsis. Gemella Morbillorum bacteremia. Acute renal failure. Multifactorial encephalopathy, improving. Chronic obstructive pulmonary disease exacerbation. Chronic tobacco use. Atrial fibrillation. PLAN: Continue linezolid IV. Continue cefepime. Continue doxycycline. Continue GI prophylaxis. Continue bronchodilators. Continue BiPAP support. Monitor renal function. This case was reviewed and discussed with my supervising physician Dr. Liang and the above assessment and plan was formulated and agreed upon. ATTESTATION BY PHYSICIAN I have seen and examined the patient. I reviewed the documentation, medical decision making, and treatment plan as noted by the mid-level provider above. I agree with the findings and plan of care. RIKY LIANG MD, [facility] Jun 16, 2025 17:15
[2025-06-16] MEDS: dexmedeTOMIDINE 200MCG/NS 50ML IV SCH (18:50)
--- NOTE | 2025-06-16 19:32 | CONS ---
GASTROENTEROLOGY CONSULTATION NOTE Date of Consultation: Jun 16, 2025 Time of Consultation: 19:32 History of Present Illness: This is a 69-year-old female with past medical emphysema, peripheral neuropathy, atrial fibrillation and hypothyroidism who presented due to shortness of breath, dry cough and generalized weakness patient is a heavy cigarette smoker. She has been on prednisone and inhaler for 3 weeks and was admitted for having atrial fibrillation April 2025. She is currently in ICU. We were consulted due to abnormal bilirubin. Total bilirubin on admission was 1.4 and has increased to 5.1 hemoglobin 9.6 with a platelet count of 114. Platelet count was normal on admission and has been downtrending. INR has been elevated since admission albumin is low. Abdominal ultrasound revealing hepatomegaly and concern for cholecystitis versus underlying CHF. Review of Systems: CONSTITUTIONAL: No malaise or change in sensation of wellbeing. ENMT: No rhinorrhea, otorrhea, sinus pain, ear ache. CARDIOVASCULAR: No angina, palpitations, orthopnea or paroxysmal dyspnea. RESPIRATORY: No SOB. GASTROINTESTINAL: No abdominal pain, nausea, vomiting, diarrhea, hematemesis, melena or change in the patient's habitual bowel movements consistency/number. GENITOURINARY: No dysuria, hematuria or change in bladder continence. MUSCULOSKELETAL: No new muscle pain or decrease in muscular strength. No new joint swelling, redness or tenderness. SKIN: No new rash. Past Medical History: [ ] Past Surgical History: [ ] Past Social History: [ ] Family History: [ ] Coded Allergies: No Known Drug Allergies (Unverified Allergy, Unknown, 06/08/25) Physical Exam: GEN: Awake, alert, oriented in person, time and place, and in no acute distress. HEENT: No sinus tenderness. Tympanic membranes were not examined. No rhinorrhea. Oral pharyngeal mucosa is pink, moist and within normal limits. Neck is supple with no cervical lymphadenopathy, thyromegaly or JVD. CHEST: Inspection, palpation and percussion of the chest were unremarkable. Lung auscultation revealed normal breath sounds bilaterally. CARDIAC: PMI is within normal limits. Heart sounds are regular. Normal S1, S2. No gallop or murmur. ABD: Soft, non-tender and not distended. No peritoneal signs on palpation. No organomegaly. Normal bowel sounds. EXT: No cyanosis or clubbing. No edema. SKIN: Intact. No rashes. JOINTS: No evidence of synovitis or acute arthritis. NEURO: Alert and oriented to name, place and person. Cranial nerve examination is unremarkable. No focal motor deficits. Normal speech. Gait is normal. Strength is normal. Vital Sign (Last 24 Hours) 06/16/25 06/16/25 16:00 18:48 Temp 98.4 Pulse 67 Resp 15 B/P (MAP) 90/37 Pulse Ox 97 O2 Delivery Hi-Flow N/C+ O2 Flow Rate 30 Intake & Output (last 24hrs) 06/15/25 06/15/25 06/16/25 15:00 23:00 07:00 Intake Total 150.0 ml 650.0 ml Output Total 800 ml 600 ml Balance -650.0 ml 50.0 ml Laboratory: [ ] Laboratory: Test 06/16/25 15:36 06/16/25 13:04 06/16/25 08:45 06/16/25 05:15 Range/Units Potassium Level 3.4 L 3.5-5.1 mmol/L Phosphorus Level 6.1 H 2.5-4.9 mg/dL Magnesium Level 2.10 1.80-2.40 mg/dL Lactic Acid Level 3.1 H 0.8-2.5 mmol/L C-Reactive Protein, Quantitative 21.70 H 0.5-3.0 mg/L White Blood Count 16.1 H 4.8-10.8 K/uL Red Blood Count 3.97 L 4.00-5.50 MIL/uL Hemoglobin 9.6 L 12.0-16.0 g/dL Hematocrit 29.0 L 36-48 % Mean Corpuscular Volume 73.0 L 79-99 fL Mean Corpuscular Hemoglobin 24.2 L 27.0-33.0 pg Mean Corpuscular Hemoglobin Concent 33.1 32.0-36.0 g/dL Red Cell Distribution Width 20.5 H 11.0-15.5 % Platelet Count 114 L 130-400 K/uL Mean Platelet Volume 7.5-10.5 fL Immature Granulocyte % (Auto) 1.6 H 0-1 % Neutrophils (%) (Auto) 93.0 H 40.0-77.0 % Lymphocytes (%) (Auto) 0.2 L 21.0-51.0 % Monocytes (%) (Auto) 5.1 3.0-13.0 % Eosinophils (%) (Auto) 0.0 0.0-8.0 % Basophils (%) (Auto) 0.1 0.0-5.0 % Neutrophils # (Auto) 15.0 H 1.8-7.7 K/uL Lymphocytes # (Auto) 0.0 L 1.0-4.8 K/uL Monocytes # (Auto) 0.8 0.1-1.0 K/uL Eosinophils # (Auto) 0.00 0.00-0.70 K/uL Basophils # (Auto) 0.01 0.00-0.20 K/uL Absolute Immature Granulocyte (auto 0.26 0-1 K/uL Nucleated Red Blood Cells 5.1 H 0.0-0.19 % Sodium Level 138 136-145 mmol/L Chloride Level 102 101-111 mmol/L Carbon Dioxide Level 21 21-32 mmol/L Blood Urea Nitrogen 80 *H 7-18 mg/dL Creatinine 2.3 H 0.5-1.0 mg/dL Glomerular Filtration Rate Calc 23 >90 mL/min Random Glucose 216 H 70-105 mg/dL Total Calcium 7.5 L 8.5-10.1 mg/dL Total Bilirubin 5.1 #H 0.2-1.0 mg/dL Aspartate Amino Transf (AST/SGOT) 82 H 10-37 U/L Alanine Aminotransferase (ALT/SGPT) 299 H 12-78 U/L Alkaline Phosphatase 96 50-136 U/L B-Type Natriuretic Peptide 3070 H 0-100 pg/mL Total Protein 5.1 L 6.0-8.3 g/dL Albumin 2.2 L 3.5-5.0 g/dL Test 06/15/25 06:15 06/15/25 03:24 06/15/25 00:36 Range/Units Segmented Neutrophils % 94 H 40-70 % Lymphocytes % (Manual) 4 L 22-44 % Monocytes % (Manual) 2 2-9 % Differential Comment MANUAL DIFFERENTIAL White Cell Morphology Comment VACUOLATION 1+ Platelet Morphology Comment ADEQUATE Red Blood Cell Morphology See comments Blood Gas Specimen Type Arterial Arterial Blood pH 7.411 7.350-7.450 Arterial Blood Partial Pressure CO2 31 L 32-45 mmHg Arterial Blood Partial Pressure O2 60.8 L 83.0-108.0 mmHg Arterial Blood HCO3 18.9 L 21.0-28.0 mmol/L Arterial Blood Oxygen Saturation 91.9 L 94.0-98.0 % Arterial Blood Base Excess -4.4 L -2.0-3.0 mmol/L Blood Gas Temperature 37.0 35.5-37.0 CELSIUS Blood Gas Flow-by 14.00 0.00-15.00 L/min Blood Gas Vent Mode RR 14L OXYMIZER ROOM AIR FiO2 76.0 % Blood Gas Specimen Comment ARABELLA TOMLIN Activated Partial Thromboplast Time 55.5 H 26.3-35.5 SEC Current Medications Medications (Trade) Dose Ordered Sig/Rossy Route PRN Reason Start Time Stop Time Status Last Admin Dose Admin Acetaminophen (TYLenol 325MG TAB) 650 mg Q4H PRN PO MILD PAIN (1-3) 06/08/25 20:30 07/08/25 20:29 06/12/25 10:16 650 MG Acetaminophen (TYLenol 325MG TAB) 650 mg Q6H PRN PO TEMPERATURE GREATER THAN 101.5 06/08/25 20:30 07/08/25 20:29 06/12/25 20:47 650 MG Albuterol (DUOneb) 1 udvial [id number] IH 06/08/25 22:00 07/08/25 21:59 06/16/25 18:46 1 UDVIAL Amiodarone HCl (pacERONE 200MG) 200 mg BID PO 06/13/25 21:00 07/13/25 20:59 06/16/25 08:22 200 MG Amiodarone HCl 540 mg/Dextrose 300 ml @ 16.667 mls/ hr PROTOCOL IV 06/12/25 10:00 06/13/25 03:59 DC 06/12/25 11:33 16.667 MLS/HR Amiodarone HCL/ Dextrose 100 ml @ 600 mls/hr PROTOCOL IV 06/12/25 05:00 06/12/25 06:53 DC 06/12/25 05:10 600 MLS/HR Amiodarone HCL/ Dextrose 100 ml @ 0 mls/hr PROTOCOL IV 06/12/25 07:00 06/12/25 07:01 DC Amiodarone HCL/ Dextrose 200 ml @ 33.333 mls/ hr PROTOCOL IV 06/12/25 05:00 06/12/25 06:53 DC 06/12/25 05:11 33.333 MLS/HR Budesonide (Pulmicort 0.5 Mg/2ml) 0.5 mg BIDRESP IH 06/09/25 18:00 07/09/25 17:59 06/16/25 18:46 0.5 MG Cefepime HCl (MAXipime 1 GM vial) 1 gm Q12H IVPB 06/10/25 14:00 06/10/25 14:35 DC 06/10/25 14:23 1 GM Cefepime HCl (MAXipime 1 GM vial) 1 gm Q12H9 IVPB 06/10/25 21:00 06/24/25 13:59 06/16/25 08:22 1 GM Cefepime HCl (MAXipime 1 GM vial) 1 gm Q8H IVPB 06/10/25 09:30 06/10/25 09:41 DC Dexmedetomidine/ Sodium Chloride (PRECEdex 200MCG/ 50ML-NS) 200 mcg PROTOCOL IV 06/16/25 11:30 07/16/25 11:29 06/16/25 18:50 200 MCG Dexmedetomidine/ Sodium Chloride (PRECEdex 400MCG/ 100ML-NS) 400 mcg PROTOCOL IV 06/08/25 20:00 06/11/25 17:00 DC 06/11/25 09:27 400 MCG Dorzolamide/ Timolol (Cosopt Eye Drops) 1 DROP BID OP 06/09/25 21:00 07/09/25 20:59 06/16/25 08:23 1 ML Doxycycline Hyclate 250 ml @ 125 mls/hr Q12H IV 06/08/25 23:00 06/18/25 22:59 06/16/25 11:17 125 MLS/HR Enoxaparin Sodium (Lovenox (Pharmacy To Dose)) 1 unit Q24H SQ 06/15/25 14:00 06/15/25 14:01 DC Enoxaparin Sodium (Lovenox 80mg) 70 mg Q24H SQ 06/15/25 14:30 07/15/25 14:29 06/16/25 14:39 70 MG Famotidine (Pepcid 20mg Vial) 20 mg DAILY IV 06/09/25 09:00 06/09/25 13:09 DC 06/09/25 08:39 20 MG Fluticasone Propionate (FLOnase 50 mcg/ spray 16g bottle) 1 SPRAY DAILY EN 06/12/25 15:00 07/12/25 14:59 06/16/25 08:23 1 SPRAYS Furosemide (LASix 20MG VIAL) 20 mg BID IVP 06/12/25 09:00 06/12/25 09:19 DC 06/12/25 08:57 20 MG Furosemide (LASix 40MG VIAL) 20 mg BID IVP 06/11/25 21:00 06/12/25 06:54 DC 06/11/25 21:26 20 MG Furosemide (LASix 40MG VIAL) 40 mg BID IVP 06/08/25 21:00 06/11/25 17:00 DC 06/11/25 09:32 40 MG Furosemide (LASix 40MG VIAL) 40 mg BID IVP 06/12/25 21:00 06/14/25 13:19 DC 06/14/25 08:24 40 MG Furosemide (LASix 40MG VIAL) 40 mg Q8H6 IVP 06/14/25 14:00 07/12/25 20:59 06/16/25 14:39 40 MG Heparin Sodium (Porcine) (HEParin 5,000 UNIT VIAL) *calculation based on ACTUAL B... AD PRN IV HEPARIN PROTOCOL 06/09/25 04:00 06/15/25 14:01 DC Heparin Sodium/ Dextrose 250 ml @ 0 mls/hr Q6H IV 06/09/25 04:00 06/15/25 13:58 DC 06/15/25 02:42 4.7 MLS/HR Home Med (Home Medication) (Methimazole 5MG TAB) - 0.5 TAB... DAILY PO 06/10/25 09:00 07/10/25 08:59 06/16/25 08:23 1 EACH Lactulose (Constulose 20gm/ 30ml Udcup) 20 gm BID PRN PO CONSTIPATION 06/13/25 07:30 07/13/25 07:29 Latanoprost (Xalatan) 1 DROP HS OD 06/09/25 21:00 07/09/25 20:59 06/15/25 21:00 1 DROP Levofloxacin/ Dextrose 100 ml @ 100 mls/hr Q24H IV 06/09/25 20:00 06/08/25 22:40 DC Linezolid 300 ml @ 150 mls/hr Q12H IV 06/11/25 11:30 06/11/25 12:38 DC Linezolid 300 ml @ 150 mls/hr Q12H IV 06/11/25 14:30 06/21/25 14:29 06/16/25 14:39 150 MLS/HR Magnesium Sulfate 50 ml @ 0 mls/hr PROTOCOL PRN IV MAGNESIUM PROTOCOL 06/09/25 17:00 07/09/25 16:59 06/12/25 03:21 25 MLS/HR Methylprednisolone Sodium Succinate (Solu-medROL 40MG) 40 mg Q12H9 IVP 06/12/25 21:00 07/09/25 13:29 06/16/25 08:22 40 MG Methylprednisolone Sodium Succinate (Solu-medROL 40MG) 40 mg Q8H IVP 06/09/25 13:30 06/12/25 14:11 DC 06/12/25 13:23 40 MG Metoprolol Tartrate (loprESSOR) 2.5 mg Q6H PRN IV heart rate greater than 110 06/12/25 03:30 07/12/25 03:29 Metoprolol Tartrate (loprESSOR) 25 mg BID PO 06/12/25 21:00 07/12/25 20:59 06/16/25 08:20 25 MG Metronidazole/ Sodium Chloride 100 ml @ 100 mls/hr Q8H6 IVPB 06/10/25 14:00 06/20/25 13:59 06/16/25 14:39 100 MLS/HR Midodrine (PROAMatine 5 MG TABLET) 5 mg TID PO 06/10/25 14:00 06/11/25 08:52 DC 06/10/25 20:08 5 MG Midodrine (PROAMatine 5 MG TABLET) 10 mg TID PO 06/11/25 09:00 06/15/25 13:58 DC 06/14/25 21:14 10 MG Nicotine (Nicoderm) 21 mg DAILY TD 06/08/25 23:00 07/08/25 22:59 06/16/25 08:22 21 MG Norepinephrine 250 ml @ 0 mls/hr PROTOCOL IV 06/09/25 01:00 07/09/25 00:59 06/11/25 10:05 6.75 MLS/HR Olanzapine (ZyPREXA 5 mg tab) 5 mg BID PO 06/10/25 21:00 07/10/25 20:59 06/16/25 08:21 5 MG Ondansetron HCl (zoFRAN 4MG INJ) 4 mg Q6H PRN IV NAUSEA/VOMITING 06/08/25 20:30 07/08/25 20:29 Oseltamivir Phosphate (Tamiflu) 75 mg BID PO 06/09/25 21:00 06/10/25 09:08 DC 06/10/25 09:03 75 MG Pantoprazole Sodium (PROTonix 40MG INJ) 40 mg DAILY IVP 06/10/25 09:00 07/10/25 08:59 06/16/25 08:21 40 MG Pharmacy Profile Note (Pharmacy Communication) 1 each ONCE MISC 06/09/25 03:00 06/09/25 03:24 DC Pharmacy Profile Note (Pharmacy Communication) 1 each ONCE MISC 06/11/25 11:30 06/11/25 11:19 DC Pharmacy Profile Note (Pharmacy Communication) 1 each ONCE MISC 06/16/25 11:00 06/16/25 11:08 DC Pharmacy Profile Note (Pharmacy Communication) 1 each ONCE MISC 06/16/25 17:00 06/16/25 17:10 DC Phytonadione (Vitamin K 10mg/ 1ml Adult Vial) 10 mg DAILY SQ 06/11/25 09:00 06/13/25 15:00 DC 06/13/25 09:24 10 MG Phytonadione (Vitamin K 10mg/ 1ml Adult Vial) 10 mg Q24H SQ 06/10/25 15:00 06/10/25 16:55 DC 06/10/25 15:11 10 MG Piperacillin Sod/ Tazobactam Sod (Zosyn 3.375gm+NS 50ml) 3.375 gm Q8H IV 06/08/25 23:00 06/10/25 09:08 DC 06/10/25 07:10 3.375 GM Potassium Chloride 100 ml @ 50 mls/hr AD PRN IV POTASSIUM PROTOCOL 06/09/25 17:00 06/11/25 06:10 DC 06/09/25 21:18 50 MLS/HR Potassium Chloride 100 ml @ 100 mls/hr AD PRN IV POTASSIUM PROTOCOL 06/09/25 17:00 07/09/25 16:59 06/16/25 06:09 100 MLS/HR Potassium Chloride 100 ml @ 100 mls/hr AD PRN IV POTASSIUM PROTOCOL 06/16/25 12:00 07/16/25 11:59 Potassium Chloride (K-Dur/Klor-Con 20meq) 20 meq AD PRN PO POTASSIUM PROTOCOL 06/09/25 17:00 07/09/25 16:59 Potassium Chloride (KCl 10% Elixir 20meq/15ml) 20 meq AD PRN PO POTASSIUM PROTOCOL 06/09/25 17:00 07/09/25 16:59 Sodium Bicarbonate 150 meq/Sodium Chloride 1,150 ml @ 100 mls/hr [id number] IVP 06/09/25 12:00 06/09/25 12:29 DC Sodium Bicarbonate (Sodium Bicarbonate) 650 mg BID PO 06/13/25 11:30 06/13/25 11:58 DC Sodium Bicarbonate (Sodium Bicarbonate) 1,300 mg BID PO 06/13/25 21:00 07/13/25 20:59 06/16/25 08:21 1,300 MG Vancomycin HCl 250 ml @ 125 mls/hr Q24H IV 06/11/25 10:00 06/11/25 11:15 DC 06/11/25 09:31 125 MLS/HR Vancomycin HCl (Vancomycin Protocol) 1 each AD IV 06/10/25 09:30 06/11/25 11:15 DC Ziprasidone (Geodon) 10 mg Q6H PRN IM AGITATION/PSYCHOSIS 06/09/25 18:00 07/09/25 17:59 06/11/25 17:28 10 MG Diagnostics / Radiology: [COPY/PASTE HERE IF NO REPORTS PLEASE DELETE SECTION] Assessment: Abnormal LFTs Coagulopathy Thrombocytopenia Plan: MRCP once clinically able Trend LFTs LAW SHANNON CANDY ROLLER Jun 16, 2025 19:32
--- NOTE | 2025-06-16 19:35 | NUR ---
DR. ANTHONY AT BEDSIDE, INFORMED HIM OF PATIENTS BLOOD PRESSURES TRENDING DOWN, LATEST BP WAS 76/34 MAP OF 48. INFORMED GABRIELLE REA THAT THIS RN HAD INITIATED PATIENT ON LEVOPHED, PER ORDER AND PROTOCOL. DR. ANTHONY STATED HE AGREED WITH CONTINUING THE LEVOPHED. PATIENTS BLOOD PRESSURE AFTER INITIATION OF LEVOPHED WAS 95/46, MAP OF 70. DR. GOLDSTEIN SYTATED HE WAS OK WITH PATIENTS CURRENT BLOOD PRESSURE, ALSO THE DIASTOLIC IN 30S, SO LONG PATIENTS MAP IS ABOVE 60.
--- NOTE | 2025-06-16 19:44 | PN ---
1. Sepsis and hypotension in the setting of multifocal pneumonia. 2. Infective endocarditis involving the aortic valve- culture negative. 3. Preserved LVEF. 4. Acute multifactorial delirium. 5. Aortic insufficiency, acute, complicated by heart failure 6. Mitral regurgitation 7. Atrial fibrillation, paroxysmal 8. Mild elevation of troponin, peak 178, in setting of sepsis and endocarditis- nonspecific troponin elevation, not diagnostic of infarct 9. Acute on chronic renal failure Patient was apparently able to interact with her family but then she became agitated and required increased sedation. Subsequently she became more hypotensive with mean arterial pressure 50. Currently the patient is pale, on BiPAP, in sinus rhythm with premature atrial beats with preserved S1 and S2, AI murmur noted, diffusely diminished breath sounds. Chest x-ray still shows bilateral infiltrates and BNP is still markedly elevated, over 3000. Renal function is deteriorating, GFR now below 30. Impression and recommendation: I think the patient likely is hypotensive because of sepsis, not a good candidate for valve replacement, and has severe aortic insufficiency that contraindicate per vasoconstrictors as a means of supporting blood pressure. Diastolic blood pressure remains low because of the low resistance induced by aortic insufficiency. She has responded to small dose of Levophed, and use of a drug that stimulates contractility is more reasonable than pure vascular dilators. I concur with current therapy. Ejection fraction yesterday was preserved, but in the presence of AI. I concur with current therapy. Vitals/Labs Vital Signs Date Time Temp Pulse Resp B/P (MAP) Pulse Ox O2 Delivery O2 Flow Rate FiO2 06/16/25 18:48 67 15 06/16/25 18:47 60 06/16/25 16:00 97 Hi-Flow N/C+ 30 06/16/25 16:00 98.4 90/37 Laboratory Tests 06/16/25 05:15 06/16/25 15:36 Medications Current Medications Methylprednisolone Sodium Succinate 125 mg ONCE ONCE IVP Last administered on 06/08/25at 17:19; Start 06/08/25 at 17:00; Stop 06/08/25 at 17:16; Status DC Albuterol 2 udvial ONCE ONCE IH Last administered on 06/08/25at 17:41; Start 06/08/25 at 17:00; Stop 06/08/25 at 17:16; Status DC Methylprednisolone Sodium Succinate 125 mg STK-MED ONCE .ROUTE; Start 06/08/25 at 17:12; Stop 06/08/25 at 17:12; Status DC Levofloxacin/ Dextrose 750 mg ONCE ONCE IV Last administered on 06/08/25at 19:26; Start 06/08/25 at 17:30; Stop 06/08/25 at 17:34; Status DC Sodium Chloride 1,000 ml @ 0 mls/hr ONCE ONCE IV; Start 06/08/25 at 18:00; Stop 06/08/25 at 17:59; Status DC Sodium Chloride 500 ml @ 0 mls/hr ONCE ONCE IV Last administered on 06/08/25at 18:05; Start 06/08/25 at 18:00; Stop 06/08/25 at 18:03; Status DC Furosemide 80 mg ONCE ONCE IVP; Start 06/08/25 at 18:00; Stop 06/08/25 at 18:01; Status Cancel Pantoprazole Sodium 40 mg ONCE ONCE PO; Start 06/08/25 at 18:30; Stop 06/08/25 at 18:31; Status DC Furosemide 40 mg STK-MED ONCE .ROUTE; Start 06/08/25 at 19:29; Stop 06/08/25 at 19:30; Status DC Furosemide 80 mg ONCE ONCE IVP; Start 06/08/25 at 20:00; Stop 06/08/25 at 20:01; Status DC Furosemide 80 mg ONCE ONCE IVP; Start 06/08/25 at 20:00; Stop 06/08/25 at 19:54; Status DC Morphine Sulfate 2 mg ONCE ONCE IVP; Start 06/08/25 at 20:00; Stop 06/08/25 at 20:05; Status DC Dexmedetomidine/ Sodium Chloride 400 mcg PROTOCOL IV Last administered on 06/11/25at 09:27; Start 06/08/25 at 20:00; Stop 06/11/25 at 17:00; Status DC Dexmedetomidine/ Sodium Chloride 400 mcg STK-MED ONCE IV; Start 06/08/25 at 20:02; Stop 06/08/25 at 20:02; Status DC Acetaminophen 650 mg Q6H PRN PO Last administered on 06/12/25at 20:47; Start 06/08/25 at 20:30; Stop 07/08/25 at 20:29 Acetaminophen 650 mg Q4H PRN PO Last administered on 06/12/25at 10:16; Start 06/08/25 at 20:30; Stop 07/08/25 at 20:29 Ondansetron HCl 4 mg Q6H PRN IV; Start 06/08/25 at 20:30; Stop 07/08/25 at 20:29 Albuterol 1 udvial [id number] IH Last administered on 06/16/25at 18:46; Start 06/08/25 at 22:00; Stop 07/08/25 at 21:59 Furosemide 40 mg BID IVP Last administered on 06/11/25at 09:32; Start 06/08/25 at 21:00; Stop 06/11/25 at 17:00; Status DC Famotidine 20 mg DAILY IV Last administered on 06/09/25at 08:39; Start 06/09/25 at 09:00; Stop 06/09/25 at 13:09; Status DC Levofloxacin/ Dextrose 100 ml @ 100 mls/hr Q24H IV; Start 06/09/25 at 20:00; Stop 06/08/25 at 22:40; Status DC Morphine Sulfate 1 mg ONCE ONCE IVP Last administered on 06/08/25at 20:36; Start 06/08/25 at 20:30; Stop 06/08/25 at 20:31; Status DC Furosemide 40 mg ONCE ONCE IV Last administered on 06/08/25at 21:18; Start 06/08/25 at 21:00; Stop 06/08/25 at 21:01; Status DC Doxycycline Hyclate 250 ml @ 125 mls/hr Q12H IV Last administered on 06/16/25at 11:17; Start 06/08/25 at 23:00; Stop 06/18/25 at 22:59 Piperacillin Sod/ Tazobactam Sod 3.375 gm Q8H IV Last administered on 06/10/25at 07:10; Start 06/08/25 at 23:00; Stop 06/10/25 at 09:08; Status DC Nicotine 21 mg DAILY TD Last administered on 06/16/25at 08:22; Start 06/08/25 at 23:00; Stop 07/08/25 at 22:59 Iohexol 50 ml STK-MED ONCE IV; Start 06/08/25 at 23:38; Stop 06/08/25 at 23:38; Status DC Norepinephrine 250 ml @ As Directed STK-MED ONCE IV; Start 06/09/25 at 00:30; Stop 06/09/25 at 00:31; Status DC Norepinephrine 250 ml @ 0 mls/hr PROTOCOL IV Last administered on 06/11/25at 10:05; Start 06/09/25 at 01:00; Stop 07/09/25 at 00:59 Pharmacy Profile Note 1 each ONCE MISC; Start 06/09/25 at 03:00; Stop 06/09/25 at 03:24; Status DC Heparin Sodium (Porcine) *calculation based on ACTUAL B... AD PRN IV; Start 06/09/25 at 04:00; Stop 06/15/25 at 14:01; Status DC Heparin Sodium/ Dextrose 250 ml @ 0 mls/hr Q6H IV Last administered on 06/15/25at 02:42; Start 06/09/25 at 04:00; Stop 06/15/25 at 13:58; Status DC Heparin Sodium (Porcine) 5,000 unit ONCE ONCE IV Last administered on 06/09/25at 05:30; Start 06/09/25 at 05:30; Stop 06/09/25 at 05:31; Status DC Sodium Bicarbonate 150 meq/Sodium Chloride 1,150 ml @ 100 mls/hr [id number] IVP; Start 06/09/25 at 12:00; Stop 06/09/25 at 12:29; Status DC Ziprasidone 10 mg Q6H ONCE IM Last administered on 06/09/25at 12:24; Start 06/09/25 at 12:21; Stop 06/09/25 at 12:23; Status DC Ziprasidone 20 mg STK-MED ONCE IM; Start 06/09/25 at 12:22; Stop 06/09/25 at 12:22; Status DC Sodium Bicarbonate 100 meq ONCE ONCE IV Last administered on 06/09/25at 13:39; Start 06/09/25 at 12:30; Stop 06/09/25 at 12:36; Status DC Oseltamivir Phosphate 75 mg BID PO Last administered on 06/10/25at 09:03; Start 06/09/25 at 21:00; Stop 06/10/25 at 09:08; Status DC Ziprasidone 10 mg Q6H PRN IM Last administered on 06/11/25at 17:28; Start 06/09/25 at 18:00; Stop 07/09/25 at 17:59 Dorzolamide/ Timolol 1 DROP BID OP Last administered on 06/16/25at 08:23; Start 06/09/25 at 21:00; Stop 07/09/25 at 20:59 Latanoprost 1 DROP HS OD Last administered on 06/15/25at 21:00; Start 06/09/25 at 21:00; Stop 07/09/25 at 20:59 Home Med (Methimazole 5MG TAB) - 0.5 TAB... DAILY PO Last administered on 06/16/25at 08:23; Start 06/10/25 at 09:00; Stop 07/10/25 at 08:59 Methylprednisolone Sodium Succinate 40 mg Q8H IVP Last administered on 06/12/25at 13:23; Start 06/09/25 at 13:30; Stop 06/12/25 at 14:11; Status DC Budesonide 0.5 mg BIDRESP IH Last administered on 06/16/25at 18:46; Start 06/09/25 at 18:00; Stop 07/09/25 at 17:59 Pantoprazole Sodium 40 mg DAILY IVP Last administered on 06/16/25at 08:21; Start 06/10/25 at 09:00; Stop 07/10/25 at 08:59 Potassium Chloride 100 ml @ 100 mls/hr AD PRN IV Last administered on 06/16/25at 06:09; Start 06/09/25 at 17:00; Stop 07/09/25 at 16:59 Potassium Chloride 20 meq AD PRN PO; Start 06/09/25 at 17:00; Stop 07/09/25 at 16:59 Potassium Chloride 20 meq AD PRN PO; Start 06/09/25 at 17:00; Stop 07/09/25 at 16:59 Potassium Chloride 100 ml @ 50 mls/hr AD PRN IV Last administered on 06/09/25at 21:18; Start 06/09/25 at 17:00; Stop 06/11/25 at 06:10; Status DC Magnesium Sulfate 50 ml @ 0 mls/hr PROTOCOL PRN IV Last administered on 06/12/25at 03:21; Start 06/09/25 at 17:00; Stop 07/09/25 at 16:59 Sodium Bicarbonate 50 meq ONCE ONCE IV Last administered on 06/10/25at 09:03; Start 06/10/25 at 09:00; Stop 06/10/25 at 09:01; Status DC Cefepime HCl 1 gm Q8H IVPB; Start 06/10/25 at 09:30; Stop 06/10/25 at 09:41; Status DC Vancomycin HCl 1 each AD IV; Start 06/10/25 at 09:30; Stop 06/11/25 at 11:15; Status DC Vancomycin HCl 250 ml @ 125 mls/hr ONCE ONCE IV Last administered on 06/10/25at 09:41; Start 06/10/25 at 10:00; Stop 06/10/25 at 11:59; Status DC Vancomycin HCl 250 ml @ 125 mls/hr Q24H IV Last administered on 06/11/25at 09:31; Start 06/11/25 at 10:00; Stop 06/11/25 at 11:15; Status DC Cefepime HCl 1 gm Q12H IVPB Last administered on 06/10/25at 14:23; Start 06/10/25 at 14:00; Stop 06/10/25 at 14:35; Status DC Olanzapine 5 mg BID PO Last administered on 06/16/25at 08:21; Start 06/10/25 at 21:00; Stop 07/10/25 at 20:59 Metronidazole/ Sodium Chloride 100 ml @ 100 mls/hr Q8H6 IVPB Last administered on 06/16/25at 14:39; Start 06/10/25 at 14:00; Stop 06/20/25 at 13:59 Midodrine 5 mg TID PO Last administered on 06/10/25at 20:08; Start 06/10/25 at 14:00; Stop 06/11/25 at 08:52; Status DC Midodrine 5 mg ONCE ONCE PO Last administered on 06/10/25at 12:56; Start 06/10/25 at 12:00; Stop 06/10/25 at 12:01; Status DC Olanzapine 5 mg ONCE ONCE PO Last administered on 06/10/25at 13:20; Start 06/10/25 at 13:00; Stop 06/10/25 at 13:01; Status DC Cefepime HCl 1 gm Q12H9 IVPB Last administered on 06/16/25at 08:22; Start 06/10/25 at 21:00; Stop 06/24/25 at 13:59 Phytonadione 10 mg Q24H SQ Last administered on 06/10/25at 15:11; Start 06/10/25 at 15:00; Stop 06/10/25 at 16:55; Status DC Phytonadione 10 mg DAILY SQ Last administered on 06/13/25at 09:24; Start 06/11/25 at 09:00; Stop 06/13/25 at 15:00; Status DC Lorazepam 1 mg ONCE ONCE IVP Last administered on 06/10/25at 22:30; Start 06/10/25 at 22:30; Stop 06/10/25 at 22:31; Status DC Midodrine 10 mg TID PO Last administered on 06/14/25at 21:14; Start 06/11/25 at 09:00; Stop 06/15/25 at 13:58; Status DC Pharmacy Profile Note 1 each ONCE MISC; Start 06/11/25 at 11:30; Stop 06/11/25 at 11:19; Status DC Linezolid 300 ml @ 150 mls/hr Q12H IV; Start 06/11/25 at 11:30; Stop 06/11/25 at 12:38; Status DC Linezolid 300 ml @ 150 mls/hr Q12H IV Last administered on 06/16/25at 14:39; Start 06/11/25 at 14:30; Stop 06/21/25 at 14:29 Furosemide 20 mg BID IVP Last administered on 06/11/25at 21:26; Start 06/11/25 at 21:00; Stop 06/12/25 at 06:54; Status DC Metoprolol Tartrate 5 mg STK-MED ONCE IV Last administered on 06/12/25at 03:22; Start 06/12/25 at 03:07; Stop 06/12/25 at 03:07; Status DC Metoprolol Tartrate 2.5 mg Q6H PRN IV; Start 06/12/25 at 03:30; Stop 07/12/25 at 03:29 Metoprolol Tartrate 5 mg ONCE ONCE IV Last administered on 06/12/25at 05:18; Start 06/12/25 at 05:00; Stop 06/12/25 at 05:01; Status DC Amiodarone HCL/ Dextrose 100 ml @ 600 mls/hr PROTOCOL IV Last administered on 06/12/25at 05:10; Start 06/12/25 at 05:00; Stop 06/12/25 at 06:53; Status DC Amiodarone HCL/ Dextrose 200 ml @ 33.333 mls/ hr PROTOCOL IV Last administered on 06/12/25at 05:11; Start 06/12/25 at 05:00; Stop 06/12/25 at 06:53; Status DC Amiodarone HCl 540 mg/Dextrose 300 ml @ 16.667 mls/ hr PROTOCOL IV Last administered on 06/12/25at 11:33; Start 06/12/25 at 10:00; Stop 06/13/25 at 03:59; Status DC Amiodarone HCL/ Dextrose 100 ml @ 0 mls/hr PROTOCOL IV; Start 06/12/25 at 07:00; Stop 06/12/25 at 07:01; Status DC Furosemide 20 mg BID IVP Last administered on 06/12/25at 08:57; Start 06/12/25 at 09:00; Stop 06/12/25 at 09:19; Status DC Furosemide 40 mg BID IVP Last administered on 06/14/25at 08:24; Start 06/12/25 at 21:00; Stop 06/14/25 at 13:19; Status DC Furosemide 20 mg ONCE ONCE IV Last administered on 06/12/25at 09:52; Start 06/12/25 at 09:30; Stop 06/12/25 at 09:31; Status DC Metoprolol Tartrate 25 mg BID PO Last administered on 06/16/25at 08:20; Start 06/12/25 at 21:00; Stop 07/12/25 at 20:59 Methylprednisolone Sodium Succinate 40 mg Q12H9 IVP Last administered on 06/16/25at 08:22; Start 06/12/25 at 21:00; Stop 07/09/25 at 13:29 Fluticasone Propionate 1 SPRAY DAILY EN Last administered on 06/16/25at 08:23; Start 06/12/25 at 15:00; Stop 07/12/25 at 14:59 Lactulose 20 gm ONCE ONCE PO Last administered on 06/13/25at 09:14; Start 06/13/25 at 07:30; Stop 06/13/25 at 07:31; Status DC Lactulose 20 gm BID PRN PO; Start 06/13/25 at 07:30; Stop 07/13/25 at 07:29 Sodium Bicarbonate 100 meq ONCE ONCE IV Last administered on 06/13/25at 09:11; Start 06/13/25 at 08:30; Stop 06/13/25 at 08:31; Status DC Amiodarone HCl 200 mg BID ONCE PO Last administered on 06/13/25at 09:13; Start 06/13/25 at 09:00; Stop 06/13/25 at 09:14; Status DC Amiodarone HCl 200 mg BID PO Last administered on 06/16/25at 08:22; Start 06/13/25 at 21:00; Stop 07/13/25 at 20:59 Sodium Bicarbonate 650 mg BID PO; Start 06/13/25 at 11:30; Stop 06/13/25 at 11:58; Status DC Sodium Bicarbonate 1,300 mg BID PO Last administered on 06/16/25at 08:21; Start 06/13/25 at 21:00; Stop 07/13/25 at 20:59 Furosemide 40 mg Q8H6 IVP Last administered on 06/16/25at 14:39; Start 06/14/25 at 14:00; Stop 07/12/25 at 20:59 Enoxaparin Sodium 1 unit Q24H SQ; Start 06/15/25 at 14:00; Stop 06/15/25 at 14:01; Status DC Enoxaparin Sodium 70 mg Q24H SQ Last administered on 06/16/25at 14:39; Start 06/15/25 at 14:30; Stop 07/15/25 at 14:29 Pharmacy Profile Note 1 each ONCE MISC; Start 06/16/25 at 11:00; Stop 06/16/25 at 11:08; Status DC Dexmedetomidine/ Sodium Chloride 200 mcg PROTOCOL IV Last administered on 06/16/25at 18:50; Start 06/16/25 at 11:30; Stop 07/16/25 at 11:29 Dexmedetomidine/ Sodium Chloride 400 mcg STK-MED ONCE IV Last administered on 06/16/25at 11:15; Start 06/16/25 at 11:07; Stop 06/16/25 at 11:07; Status DC Potassium Chloride 100 ml @ 100 mls/hr AD PRN IV; Start 06/16/25 at 12:00; Stop 07/16/25 at 11:59 Pharmacy Profile Note 1 each ONCE MISC; Start 06/16/25 at 17:00; Stop 06/16/25 at 17:10; Status DC Amino Acids/ Electrolytes/ Dextrose 1,008 ml @ 42 mls/hr ONCE ONCE IV; Start 06/16/25 at 20:00; Stop 06/17/25 at 19:59 RADHA GOLDSTEIN MD Jun 16, 2025 19:44
[2025-06-16] MEDS: CLINIMIX-E 5%AA /D15%W 2000ML 2,000 ML IV ONE (20:19)
[2025-06-17] VITALS (101 sets, daily range): BP systolic 76–136; BP diastolic 27–96; PULSE 68–95; RESP 10–31; TEMP 97.7–99.4; O2SAT 97–100
[2025-06-17 04:54] LABS: NUCLEATED RED BLOOD CELLS 3.0 % (0.0-0.19); PLATELET COUNT (AUTO) 93 K/uL (130-400); RED BLOOD CELL COUNT(AUTO) 3.69 MIL/uL (4.00-5.50); RED CELL DISTRIBUTION WIDTH 21.3 % (11.0-15.5); WHITE BLOOD COUNT (AUTO) 24.4 K/uL (4.8-10.8)
[2025-06-17 05:22] LABS: CREATININE 2.5 mg/dL (0.5-1.0); GLOMERULAR FILTR. RATE CALC 20.0 mL/min (>90); GLUCOSE,RANDOM 216.0 mg/dL (70-105); PHOSPHORUS 6.3 mg/dL (2.5-4.9); SODIUM SERUM 141.0 mmol/L (136-145); TOTAL PROTEIN, SERUM 5.2 g/dL (6.0-8.3)
[2025-06-17 05:23] LABS: UREA NITROGEN, BLOOD 82.0 mg/dL (7-18)
[2025-06-17 05:30] LABS: MAN.DIFF COMMENT-IMPRESSION MANUAL DIFFERENTIAL; MONOCYTES % (MANUAL) 1 % (2-9); SEGMENTED NEUTROPHILS % 99 % (40-70)
[2025-06-17 05:32] LABS: ASPARTATE AMINOTRANSFERASE 90.0 U/L (10-37)
--- NOTE | 2025-06-17 08:47 | PN ---
[facility] PROGRESS NOTE Date Patient Seen: Jun 17, 2025 Time of Visit: 08:43 Supervising Physician: [Dr. Macias ] Primary Care Physician: [Dr. Yoel Pierson] Outpatient Specialists: [ ] Inpatient Consults: [[facility] team-ICU ] PROBLEM LIST: Acute hypoxic respiratory failure present on admission Paroxysmal atrial fibrillation Sepsis 2/2 community acquired pneumonia Aortic valve vegetations Infective endocarditis involving the aortic valve- culture negative. Hepatic transaminitis NSTEMI-likely type II 2/2 demand ischemia from hypoxia vs. true cardiac etiology-POA- negative for chest pain or ST/T wave abnormality. HEART score 6 points=12-16.6% risk for MACE Hyperlactatemia-POA Acute multifactorial delirium Acute on chronic renal failure Acute COPD exacerbation Emphysema secondary to tobacco use disorder Pulmonary edema Bilateral pleural effusions Chronic nicotine disorder: [id number] HX Prior CVA Hyperthyroid disorder/Graves disease with right thyroid nodule INTERVAL HISTORY: Patient seen and examined, patient awake with noted delirium, alert to self Unequal pupils noted Patient continues edematous. Patient on supplemental O2, currently on high-flow BiPAP at night patient has refused Patient pending the HIDA scan and a VICK but unable due to unable to tolerate positioning Plan: Neuro consult we will follow recs CT of head We will continue to follow cardiology recommendations Continue Zyvox, Cefepime, and Doxy per ID Patient pending VICK and Hida scan unable to tolerate positioning for procedure Continue on supplemental O2, high-flow, BiPAP at night Continue to diurese, continue Lasix Avoid nephrotoxic medications Will continue to monitor renal function and follow nephrology recommendations Repeat Blood CX pending Total critical care time spent 50 minutes, this excludes any procedures performed or any time spent in educational or teaching. REVIEW OF SYSTEMS: More awake today, able to answer questions and oriented to self and place. No other major complaints reported by the patient herself and most of the information is obtained from nursing staff and medical records at bedside. PHYSICAL EXAM: GENERAL: oriented to self HEENT: EOMI, Sclera non icteric, dry mucosa NECK: Supple, no JVD, trachea midline LUNGS: Grossly clear, decreased air entry without wheezing HEART: Regular rate and rhythm. Normal S1 and S2, without murmurs, tachycardia ABD: Abdomen soft, nontender. Bowel sounds present EXT: No clubbing cyanosis or edema NEURO: Awake alert to self Vital Signs (last 8hr) Date Time Temp Pulse Resp B/P (MAP) Pulse Ox O2 Delivery O2 Flow Rate FiO2 06/17/25 07:00 76 18 112/44 (66) 97 06/17/25 06:37 74 17 110/41 (64) 97 06/17/25 06:30 72 23 106/37 (60) 96 06/17/25 06:30 71 18 06/17/25 06:28 71 18 60 06/17/25 06:15 71 18 107/41 (63) 97 06/17/25 06:00 71 16 107/42 (63) 95 06/17/25 05:45 71 15 111/41 (64) 96 06/17/25 05:41 107/43 06/17/25 05:30 70 16 107/41 (63) 96 06/17/25 05:15 70 17 107/43 (64) 96 06/17/25 05:00 71 17 113/52 (72) 96 06/17/25 04:45 83 20 127/96 (106) 97 06/17/25 04:30 74 19 115/52 (73) 98 06/17/25 04:15 70 18 107/42 (63) 97 06/17/25 04:00 99 Bi-PAP+ 30 65 06/17/25 04:00 70 17 106/46 (66) 97 06/17/25 04:00 99.0 06/17/25 03:45 70 17 105/44 (64) 97 06/17/25 03:30 70 17 111/40 (63) 96 06/17/25 03:15 70 16 106/36 (59) 97 06/17/25 03:05 100/46 06/17/25 03:00 70 19 109/46 (67) 96 06/17/25 02:45 71 27 109/46 (67) 99 06/17/25 02:30 85 23 123/51 (75) 99 06/17/25 02:30 69 18 06/17/25 02:30 70 19 60 06/17/25 02:15 69 17 102/37 (58) 100 06/17/25 02:00 69 18 101/43 (62) 100 06/17/25 01:45 69 18 102/32 (55) 100 06/17/25 01:30 69 18 103/44 (63) 100 06/17/25 01:15 68 19 103/34 (57) 100 06/17/25 01:00 69 18 101/41 (61) 100 06/17/25 00:45 68 18 101/41 (61) 100 LABS: Hematology Labs: Test 06/17/25 04:15 06/16/25 05:15 Range/Units White Blood Count 24.4 #H 4.8-10.8 K/uL Red Blood Count 3.69 L 4.00-5.50 MIL/uL Hemoglobin 8.9 L 12.0-16.0 g/dL Hematocrit 28.1 L 36-48 % Mean Corpuscular Volume 76.2 L 79-99 fL Mean Corpuscular Hemoglobin 24.1 L 27.0-33.0 pg Mean Corpuscular Hemoglobin Concent 31.7 L 32.0-36.0 g/dL Red Cell Distribution Width 21.3 H 11.0-15.5 % Platelet Count 93 L 130-400 K/uL Mean Platelet Volume 7.5-10.5 fL Segmented Neutrophils % 99 H 40-70 % Monocytes % (Manual) 1 L 2-9 % Nucleated Red Blood Cells 3.0 H 0.0-0.19 % Differential Comment MANUAL DIFFERENTIAL White Cell Morphology Comment Platelet Morphology Comment See comments Red Blood Cell Morphology See comments Immature Granulocyte % (Auto) 1.6 H 0-1 % Neutrophils (%) (Auto) 93.0 H 40.0-77.0 % Lymphocytes (%) (Auto) 0.2 L 21.0-51.0 % Monocytes (%) (Auto) 5.1 3.0-13.0 % Eosinophils (%) (Auto) 0.0 0.0-8.0 % Basophils (%) (Auto) 0.1 0.0-5.0 % Neutrophils # (Auto) 15.0 H 1.8-7.7 K/uL Lymphocytes # (Auto) 0.0 L 1.0-4.8 K/uL Monocytes # (Auto) 0.8 0.1-1.0 K/uL Eosinophils # (Auto) 0.00 0.00-0.70 K/uL Basophils # (Auto) 0.01 0.00-0.20 K/uL Absolute Immature Granulocyte (auto 0.26 0-1 K/uL Chemistry Labs: Test 06/17/25 04:15 06/16/25 13:04 06/16/25 08:45 Range/Units Sodium Level 141 136-145 mmol/L Potassium Level 3.6 3.5-5.1 mmol/L Chloride Level 103 101-111 mmol/L Carbon Dioxide Level 23 21-32 mmol/L Blood Urea Nitrogen 82 *H 7-18 mg/dL Creatinine 2.5 H 0.5-1.0 mg/dL Glomerular Filtration Rate Calc 20 >90 mL/min Random Glucose 216 H 70-105 mg/dL Total Calcium 7.2 L 8.5-10.1 mg/dL Phosphorus Level 6.3 H 2.5-4.9 mg/dL Magnesium Level 2.20 1.80-2.40 mg/dL Total Bilirubin 7.3 #H 0.2-1.0 mg/dL Aspartate Amino Transf (AST/SGOT) 90 H 10-37 U/L Alanine Aminotransferase (ALT/SGPT) 249 H 12-78 U/L Alkaline Phosphatase 97 50-136 U/L B-Type Natriuretic Peptide 2170 H 0-100 pg/mL Total Protein 5.2 L 6.0-8.3 g/dL Albumin 2.1 L 3.5-5.0 g/dL Lactic Acid Level 3.1 H 0.8-2.5 mmol/L C-Reactive Protein, Quantitative 21.70 H 0.5-3.0 mg/L DIAGNOSTICS / RADIOLOGY RESULTS: [ ] PLAN NEURO: Minimize central acting medications as possible. Fall Precautions. Well lighted room through the day and minimize interruptions through the night to prevent acute delirium. PULMONARY: Supplemental 02 as needed Titrate Fio2 to keep Spo2 > or = 90% DuoNebs and CPT as needed IS hourly while awake for pulmonary hygiene Out of bed to chair as tolerated VAP Bundle Vent/BIPAP Settings: [ ] Driving pressure: [ ] P Plat: [ ] Static C: [ ] Static R: [ ] P/F Ratio: [ ] CARDIOVASCULAR: Follow hemodynamics. Titrate vasopressor to keep MAP >65 or systolic blood pressure >95mmHg DRIPS: [Precedex] LINES: [ ] GI & NUTRITION: Continue nutritional support Aspirations precautions Prokinetic agents and laxatives as needed KIDNEYS & ELECTROLYTES: Strict monitoring of intake and output Daily weights Avoid nephrotoxic agents Monitor electrolytes and replace as needed Goal urine output of 30mL/hr or 0.5mL/kg/hr Urine output: [ ] Fluid Balance: [ ] ENDOCRINE: Maintain blood glucose between 100-180 at all times. Insulin sliding scale for blood glucose management INFECTIOUS DISEASE: Trend temperature. Dubois-culture if febrile. Micro: [ ] Antibiotics: [Vancomycin and Cefepime ] HEMATOLOGY & COAGULATION: Monitor H&H. Keep Hgb > 7 Transfuse 1 unit of PRBC for Hgb < 7 Transfuse 1 pack of platelets of platelets < 20, 000 Watch for any signs and symptoms of bleeding SKIN: Pressure ulcer prevention per facility protocol Rehab: PT/OT Prophylaxis: GI: [Pepcid ] DVT: [Heparin] Code Status: Full Resuscitation Disposition: [ICU] [facility] Jun 17, 2025 08:47
--- NOTE | 2025-06-17 09:11 | PN ---
[facility] CARDIOLOGY PROGRESS NOTE Date Patient Seen: Jun 17, 2025 Time of Visit: 09:02 Interval History: [No acute events overnight. Blood culture positive 06/08/2025 Gemella Morbillorum , multiple vegetations in the aortic valve noted on 2D echocardiogram x 2, patient remains altered, has been very unstable to undergo VICK Physical Examination: GENERAL: [Altered] HEAD: [Normal with no signs of head trauma.] EYES: [Left pupil appears to be more dilated compared to the right.] ENT: [Hearing grossly intact, normal oropharynx.] NECK: [Supple without JVD. There is no tenderness, lymphadenopathy, or masses. No thyromegaly. Normal carotid upstrokes without bruits.] LUNGS: [Decreased breath sounds bilaterally in the bases.. CPAP in place] HEART: [Normal rate and rhythm. Normal S1 and S2 without murmurs, gallop or rub.] VASC: [Peripheral pulses +2 bilaterally.] ABD: [Bowel sounds normal, soft, nontender, no masses, no organomegaly. No audible bruits.] : [Not examined] LYMPH: [No lymphadenopathy noted.] EXT: [No clubbing, cyanosis or edema.] SKIN: [No rashes or lesions noted.] NEURO: [Patient is not alert or oriented,.] Laboratory: [ ] Hematology Labs: Test 06/17/25 04:15 06/16/25 05:15 Range/Units White Blood Count 24.4 #H 4.8-10.8 K/uL Red Blood Count 3.69 L 4.00-5.50 MIL/uL Hemoglobin 8.9 L 12.0-16.0 g/dL Hematocrit 28.1 L 36-48 % Mean Corpuscular Volume 76.2 L 79-99 fL Mean Corpuscular Hemoglobin 24.1 L 27.0-33.0 pg Mean Corpuscular Hemoglobin Concent 31.7 L 32.0-36.0 g/dL Red Cell Distribution Width 21.3 H 11.0-15.5 % Platelet Count 93 L 130-400 K/uL Mean Platelet Volume 7.5-10.5 fL Segmented Neutrophils % 99 H 40-70 % Monocytes % (Manual) 1 L 2-9 % Nucleated Red Blood Cells 3.0 H 0.0-0.19 % Differential Comment MANUAL DIFFERENTIAL White Cell Morphology Comment Platelet Morphology Comment See comments Red Blood Cell Morphology See comments Immature Granulocyte % (Auto) 1.6 H 0-1 % Neutrophils (%) (Auto) 93.0 H 40.0-77.0 % Lymphocytes (%) (Auto) 0.2 L 21.0-51.0 % Monocytes (%) (Auto) 5.1 3.0-13.0 % Eosinophils (%) (Auto) 0.0 0.0-8.0 % Basophils (%) (Auto) 0.1 0.0-5.0 % Neutrophils # (Auto) 15.0 H 1.8-7.7 K/uL Lymphocytes # (Auto) 0.0 L 1.0-4.8 K/uL Monocytes # (Auto) 0.8 0.1-1.0 K/uL Eosinophils # (Auto) 0.00 0.00-0.70 K/uL Basophils # (Auto) 0.01 0.00-0.20 K/uL Absolute Immature Granulocyte (auto 0.26 0-1 K/uL Chemistry Labs: Test 06/17/25 04:15 06/16/25 13:04 06/16/25 08:45 Range/Units Sodium Level 141 136-145 mmol/L Potassium Level 3.6 3.5-5.1 mmol/L Chloride Level 103 101-111 mmol/L Carbon Dioxide Level 23 21-32 mmol/L Blood Urea Nitrogen 82 *H 7-18 mg/dL Creatinine 2.5 H 0.5-1.0 mg/dL Glomerular Filtration Rate Calc 20 >90 mL/min Random Glucose 216 H 70-105 mg/dL Total Calcium 7.2 L 8.5-10.1 mg/dL Phosphorus Level 6.3 H 2.5-4.9 mg/dL Magnesium Level 2.20 1.80-2.40 mg/dL Total Bilirubin 7.3 #H 0.2-1.0 mg/dL Aspartate Amino Transf (AST/SGOT) 90 H 10-37 U/L Alanine Aminotransferase (ALT/SGPT) 249 H 12-78 U/L Alkaline Phosphatase 97 50-136 U/L B-Type Natriuretic Peptide 2170 H 0-100 pg/mL Total Protein 5.2 L 6.0-8.3 g/dL Albumin 2.1 L 3.5-5.0 g/dL Lactic Acid Level 3.1 H 0.8-2.5 mmol/L C-Reactive Protein, Quantitative 21.70 H 0.5-3.0 mg/L Diagnostics / Radiology: [Copy/Paste Echos/Imaging Report here] Impression and Plan: 1. Sepsis in the setting of multifocal pneumonia. 2. Infective endocarditis involving the aortic valve. 3. Preserved LVEF. 4. Acute delirium. ] # aortic valve endocarditis She presented with sepsis with multifocal pneumonia and was found to have aortic valve endocarditis. 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 Infectious Disease has been consulted for further management. Blood culture positive 06/08/2025 Gemella Morbillorum History of atrial fibrillation and CVA is documented in her chart on this admission. We are currently unable to obtain this history from the patient due to acute delirium. The patient continues to be altered, unable to perform VICK, leukocytosis worsening Chest x-ray has improved from with a pulmonary edema standpoint. Overnight urine output 1771 mL. We will continue Lasix to 40 mg IV every 8 hours. We will recommend continue to broad-spectrum antibiotics, infectious disease recommendations We have consulted with Neurology for her altered mental status, at this moment unable to perform brain CT, due to the patient's inability to remain still at risk for artifact #atrial fibrillation The patient transitioned to atrial fibrillation with RVR the night of 06/11/2025, requiring amiodarone bolus and infusion Current review of telemetry shows sinus rhythm PACs Please keep on telemetry, monitor/replace electrolytes as needed Continue amiodarone 200 mg every 12 hours Continue Lopressor 25 mg every12 hours for rate control Continue heparin infusion for PPX, we will consider transitioning to Eliquis on discharge Thank you for this consult cardiology will continue to follow along Mikayla lynn MD ATTESTATION BY PHYSICIAN I have seen and examined the patient, reviewed the above documentation, participated in medical decision making, made necessary modifications, and agree with the treatment plan as documented by my mid-level provider above. MD DEREK iHnkle DANIELLE M MD Jun 17, 2025 09:11
--- NOTE | 2025-06-17 09:59 | HMCIMG ---
EXAM: CR Chest, 1 View. CLINICAL HISTORY: chf COMPARISON: 06/16/2025 FINDINGS: The right PICC line tip is at the SVC. LUNGS: Interval improvement in bilateral perihilar and bibasilar airspace disease. PLEURAL SPACES: No evidence of pleural effusion or pneumothorax. MEDIASTINUM: Mild cardiomegaly. Interval reduction in pulmonary vascular congestion. BONES: No acute osseous abnormality. Lower cervical spine implants. IMPRESSION: 1. Interval improvement in bilateral perihilar and bibasilar airspace disease with reduction in pulmonary vascular congestion. 2. Mild stable cardiomegaly. 3. Right PICC line tip at the SVC. /[place]
--- NOTE | 2025-06-17 10:12 | HMCIMG ---
EXAM: CR Chest, 1 View. CLINICAL HISTORY: pulmonary edema COMPARISON: 06/14/2025 FINDINGS: A right PICC tip is seen at the proximal superior vena cava. LUNGS: Stable bilateral interstitial and patchy airspace opacities, more evident at the lower lobes, represent pulmonary edema. PLEURAL SPACES: No pneumothorax. Stable small left pleural effusion. MEDIASTINUM: Stable cardiomegaly with pulmonary vascular congestion. BONES: No acute osseous abnormality. Cervical spine implants. IMPRESSION: 1. Stable bilateral pulmonary edema, more prominent in the lower lobes, with cardiomegaly and pulmonary vascular congestion. 2. Stable small left pleural effusion. 3. Right PICC tip at proximal superior vena cava. Overall, in comparison to the previous chest radiograph, there have been no significant interval changes. /[place]
[2025-06-17 12:35] LABS: ABG BASE EXCESS -6.0 mmol/L (-2.0-3.0); ABG HCO3 21.2 mmol/L (21.0-28.0); ABG OXYGEN SATURATION 99.1 % (94.0-98.0); ABG PCO2 48 mmHg (32-45); ABG PH 7.265 (7.350-7.450); CPAP, BG 10 cm H2O; PO2, ARTERIAL BG 190.9 mmHg (83.0-108.0); TEMPERATURE, CELSIUS BG 37.0 CELSIUS (35.5-37.0); VENT MODE, BG CPAP (ROOM AIR)
[2025-06-17] MEDS: SODIUM BICARB 50MEQ 50ML VIAL IV ONE ×2 (12:58→17:16)
--- NOTE | 2025-06-17 13:08 | PN ---
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 She continues to require supplemental oxygen and BiPAP at night. Pending HIDA scan and VICK, patient unable to tolerate positioning She remains on Lasix, 40 mg IV [id number], Urine output was noted She continues on antibiotics as per ID She has had acute on chronic renal failure while in the hospital. Creatinine has been elevated in the patient is being seen as a follow up visit for all the above Hyponatremia has improved, she has been encouraged with fluid restriction Renal function remains elevated Electrolytes are stable She was seen in the ICU Family at the bedside Prognosis remains guarded REVIEW OF SYSTEMS: GENERAL: Positive for shortness of breath NEUROLOGIC: Negative for any blurry vision, blind spots, double vision, facial asymmetry, dysphagia, dysarthria, hemiparesis, hemisensory deficits, vertigo, ataxia. HEENT: Negative for any head trauma, neck trauma, neck stiffness, photophobia, phonophobia, sinusitis, rhinitis. CARDIAC: Negative for any chest pain, dyspnea on exertion, paroxysmal nocturnal dyspnea, peripheral edema. PULMONARY: Negative for any shortness of breath, wheezing, COPD, or TB exposure. GASTROINTESTINAL: Negative for any abdominal pain, nausea, vomiting, bright red blood per rectum, melena. GENITOURINARY: Negative for any dysuria, hematuria, incontinence. INTEGUMENTARY: Negative for any rashes, cuts, insect bites. RHEUMATOLOGIC: Negative for any joint pains, photosensitive rashes, history of vasculitis or kidney problems. HEMATOLOGIC: Negative for any abnormal bruising, frequent infections or bleeding. Vital Signs (last 8hr) Date Time Temp Pulse Resp B/P (MAP) Pulse Ox O2 Delivery O2 Flow Rate FiO2 06/17/25 11:52 90 21 60 06/17/25 10:34 75 16 06/17/25 09:17 75 17 60 06/17/25 09:00 75 16 103/40 (61) 99 06/17/25 08:45 78 17 112/43 (66) 98 06/17/25 08:30 79 17 118/47 (70) 97 06/17/25 08:15 92 17 125/58 (80) 97 06/17/25 08:00 99.1 06/17/25 08:00 78 17 114/36 (62) 97 06/17/25 07:45 76 17 113/42 (65) 98 06/17/25 07:30 76 16 111/36 (61) 96 06/17/25 07:15 76 18 112/41 (64) 96 06/17/25 07:00 76 18 112/44 (66) 97 06/17/25 06:37 74 17 110/41 (64) 97 06/17/25 06:30 72 23 106/37 (60) 96 06/17/25 06:30 71 18 06/17/25 06:28 71 18 60 06/17/25 06:15 71 18 107/41 (63) 97 06/17/25 06:00 71 16 107/42 (63) 95 06/17/25 05:45 71 15 111/41 (64) 96 06/17/25 05:41 107/43 06/17/25 05:30 70 16 107/41 (63) 96 06/17/25 05:15 70 17 107/43 (64) 96 PHYSICAL EXAM: GENERAL: Alert and oriented x 3. No acute distress. Well-nourished. EYES: EOMI. Anicteric. HENT: Moist mucous membranes. No scleral icterus. No cervical lymphadenopathy. LUNGS: Clear to auscultation bilaterally. No accessory muscle use. CARDIOVASCULAR: Regular rate and rhythm. No murmur. No JVD. ABDOMEN: Soft, non-tender and non-distended. No palpable masses. EXTREMITIES: No edema. Non-tender. SKIN: No rashes or lesions. Warm. NEUROLOGIC: No focal neurological deficits. CN II-XII grossly intact, but not individually tested. PSYCHIATRIC: Cooperative. Appropriate mood and affect. Current Medications Medications (Trade) Dose Ordered Sig/Rossy Route Start Time Stop Time Status Last Admin Dose Admin Albuterol (DUOneb) 1 udvial [id number] IH 06/08/25 22:00 07/08/25 21:59 06/17/25 10:34 1 UDVIAL Amiodarone HCl (pacERONE 200MG) 200 mg BID PO 06/13/25 21:00 07/13/25 20:59 06/16/25 21:24 200 MG Amiodarone HCl 540 mg/Dextrose 300 ml @ 16.667 mls/ hr PROTOCOL IV 06/12/25 10:00 06/13/25 03:59 DC 06/12/25 11:33 16.667 MLS/HR Amiodarone HCL/ Dextrose 100 ml @ 600 mls/hr PROTOCOL IV 06/12/25 05:00 06/12/25 06:53 DC 06/12/25 05:10 600 MLS/HR Amiodarone HCL/ Dextrose 100 ml @ 0 mls/hr PROTOCOL IV 06/12/25 07:00 06/12/25 07:01 DC Amiodarone HCL/ Dextrose 200 ml @ 33.333 mls/ hr PROTOCOL IV 06/12/25 05:00 06/12/25 06:53 DC 06/12/25 05:11 33.333 MLS/HR Budesonide (Pulmicort 0.5 Mg/2ml) 0.5 mg BIDRESP 06/09/25 18:00 07/09/25 17:59 06/17/25 06:30 0.5 MG Cefepime HCl (MAXipime 1 GM vial) 1 gm Q12H IVPB 06/10/25 14:00 06/10/25 14:35 DC 06/10/25 14:23 1 GM Cefepime HCl (MAXipime 1 GM vial) 1 gm Q12H9 IVPB 06/10/25 21:00 06/24/25 13:59 06/17/25 12:58 1 GM Cefepime HCl (MAXipime 1 GM vial) 1 gm Q8H IVPB 06/10/25 09:30 06/10/25 09:41 DC Dexmedetomidine/ Sodium Chloride (PRECEdex 200MCG/ 50ML-NS) 200 mcg PROTOCOL IV 06/16/25 11:30 07/16/25 11:29 06/17/25 05:39 200 MCG Dexmedetomidine/ Sodium Chloride (PRECEdex 400MCG/ 100ML-NS) 400 mcg PROTOCOL IV 06/08/25 20:00 06/11/25 17:00 DC 06/11/25 09:27 400 MCG Dorzolamide/ Timolol (Cosopt Eye Drops) 1 DROP BID OP 06/09/25 21:00 07/09/25 20:59 06/16/25 21:25 1 ML Doxycycline Hyclate 250 ml @ 125 mls/hr Q12H IV 06/08/25 23:00 06/18/25 22:59 06/17/25 12:58 125 MLS/HR Enoxaparin Sodium (Lovenox (Pharmacy To Dose)) 1 unit Q24H SQ 06/15/25 14:00 06/15/25 14:01 DC Enoxaparin Sodium (Lovenox 80mg) 70 mg Q24H SQ 06/15/25 14:30 06/17/25 12:11 DC 06/16/25 14:39 70 MG Famotidine (Pepcid 20mg Vial) 20 mg DAILY IV 06/09/25 09:00 06/09/25 13:09 DC 06/09/25 08:39 20 MG Fluticasone Propionate (FLOnase 50 mcg/ spray 16g bottle) 1 SPRAY DAILY EN 06/12/25 15:00 07/12/25 14:59 06/16/25 08:23 1 SPRAYS Furosemide (LASix 20MG VIAL) 20 mg BID IVP 06/12/25 09:00 06/12/25 09:19 DC 06/12/25 08:57 20 MG Furosemide (LASix 40MG VIAL) 20 mg BID IVP 06/11/25 21:00 06/12/25 06:54 DC 06/11/25 21:26 20 MG Furosemide (LASix 40MG VIAL) 40 mg BID IVP 06/08/25 21:00 06/11/25 17:00 DC 06/11/25 09:32 40 MG Furosemide (LASix 40MG VIAL) 40 mg BID IVP 06/12/25 21:00 06/14/25 13:19 DC 06/14/25 08:24 40 MG Furosemide (LASix 40MG VIAL) 40 mg Q8H6 IVP 06/14/25 14:00 06/17/25 12:12 DC 06/17/25 05:22 40 MG Heparin Sodium/ Dextrose 250 ml @ 0 mls/hr Q6H IV 06/09/25 04:00 06/15/25 13:58 DC 06/15/25 02:42 4.7 MLS/HR Home Med (Home Medication) (Methimazole 5MG TAB) - 0.5 TAB... DAILY PO 06/10/25 09:00 07/10/25 08:59 06/16/25 08:23 1 EACH Latanoprost (Xalatan) 1 DROP HS OD 06/09/25 21:00 07/09/25 20:59 06/16/25 21:26 1 DROP Levofloxacin/ Dextrose 100 ml @ 100 mls/hr Q24H IV 06/09/25 20:00 06/08/25 22:40 DC Linezolid 300 ml @ 150 mls/hr Q12H IV 06/11/25 11:30 06/11/25 12:38 DC Linezolid 300 ml @ 150 mls/hr Q12H IV 06/11/25 14:30 06/21/25 14:29 06/17/25 02:14 150 MLS/HR Methylprednisolone Sodium Succinate (Solu-medROL 40MG) 40 mg Q12H9 IVP 06/12/25 21:00 07/09/25 13:29 06/17/25 12:58 40 MG Methylprednisolone Sodium Succinate (Solu-medROL 40MG) 40 mg Q8H IVP 06/09/25 13:30 06/12/25 14:11 DC 06/12/25 13:23 40 MG Metoprolol Tartrate (loprESSOR) 25 mg BID PO 06/12/25 21:00 06/17/25 12:12 DC 06/16/25 21:24 25 MG Metronidazole/ Sodium Chloride 100 ml @ 100 mls/hr Q8H6 IVPB 06/10/25 14:00 06/20/25 13:59 06/17/25 05:22 100 MLS/HR Midodrine (PROAMatine 5 MG TABLET) 5 mg TID PO 06/10/25 14:00 06/11/25 08:52 DC 06/10/25 20:08 5 MG Midodrine (PROAMatine 5 MG TABLET) 10 mg TID PO 06/11/25 09:00 06/15/25 13:58 DC 06/14/25 21:14 10 MG Nicotine (Nicoderm) 21 mg DAILY TD 06/08/25 23:00 07/08/25 22:59 06/17/25 12:58 21 MG Norepinephrine 250 ml @ 0 mls/hr PROTOCOL IV 06/09/25 01:00 07/09/25 00:59 06/17/25 05:41 27.7 MLS/HR Olanzapine (ZyPREXA 5 mg tab) 5 mg BID PO 06/10/25 21:00 06/17/25 12:13 DC 06/16/25 21:24 5 MG Oseltamivir Phosphate (Tamiflu) 75 mg BID PO 06/09/25 21:00 06/10/25 09:08 DC 06/10/25 09:03 75 MG Pantoprazole Sodium (PROTonix 40MG INJ) 40 mg DAILY IVP 06/10/25 09:00 07/10/25 08:59 06/17/25 12:58 40 MG Pharmacy Profile Note (Pharmacy Communication) 1 each ONCE [facility]IS 06/09/25 03:00 06/09/25 03:24 DC Pharmacy Profile Note (Pharmacy Communication) [address] [facility] 06/11/25 11:30 06/11/25 11:19 DC Pharmacy Profile Note (Pharmacy Communication) [address] [facility] 06/16/25 11:00 06/16/25 11:08 DC Pharmacy Profile Note (Pharmacy Communication) [address] [facility] 06/16/25 17:00 06/16/25 17:10 DC Phytonadione (Vitamin K 10mg/ 1ml Adult Vial) 10 mg DAILY SQ 06/11/25 09:00 06/13/25 15:00 DC 06/13/25 09:24 10 MG Phytonadione (Vitamin K 10mg/ 1ml Adult Vial) 10 mg Q24H SQ 06/10/25 15:00 06/10/25 16:55 DC 06/10/25 15:11 10 MG Piperacillin Sod/ Tazobactam Sod (Zosyn 3.375gm+NS 50ml) 3.375 gm Q8H IV 06/08/25 23:00 06/10/25 09:08 DC 06/10/25 07:10 3.375 GM Sevelamer HCl (RENAgel 800 MG TAB) 400 mg TIDMEALS PO 06/17/25 12:00 07/17/25 11:59 Sodium Bicarbonate 150 meq/Sodium Chloride 1,150 ml @ 100 mls/hr [id number] IVP 06/09/25 12:00 06/09/25 12:29 DC Sodium Bicarbonate (Sodium Bicarbonate) 650 mg BID PO 06/13/25 11:30 06/13/25 11:58 DC Sodium Bicarbonate (Sodium Bicarbonate) 1,300 mg BID PO 06/13/25 21:00 07/13/25 20:59 06/16/25 21:24 1,300 MG Vancomycin HCl 250 ml @ 125 mls/hr Q24H IV 06/11/25 10:00 06/11/25 11:15 DC 06/11/25 09:31 125 MLS/HR Vancomycin HCl (Vancomycin Protocol) 1 each AD IV 06/10/25 09:30 06/11/25 11:15 DC LABORATORY: [ ] Hematology Labs: Test 06/17/25 04:15 06/16/25 05:15 Range/Units White Blood Count 24.4 #H 4.8-10.8 K/uL Red Blood Count 3.69 L 4.00-5.50 MIL/uL Hemoglobin 8.9 L 12.0-16.0 g/dL Hematocrit 28.1 L 36-48 % Mean Corpuscular Volume 76.2 L 79-99 fL Mean Corpuscular Hemoglobin 24.1 L 27.0-33.0 pg Mean Corpuscular Hemoglobin Concent 31.7 L 32.0-36.0 g/dL Red Cell Distribution Width 21.3 H 11.0-15.5 % Platelet Count 93 L 130-400 K/uL Mean Platelet Volume 7.5-10.5 fL Segmented Neutrophils % 99 H 40-70 % Monocytes % (Manual) 1 L 2-9 % Nucleated Red Blood Cells 3.0 H 0.0-0.19 % Differential Comment MANUAL DIFFERENTIAL White Cell Morphology Comment Platelet Morphology Comment See comments Red Blood Cell Morphology See comments Immature Granulocyte % (Auto) 1.6 H 0-1 % Neutrophils (%) (Auto) 93.0 H 40.0-77.0 % Lymphocytes (%) (Auto) 0.2 L 21.0-51.0 % Monocytes (%) (Auto) 5.1 3.0-13.0 % Eosinophils (%) (Auto) 0.0 0.0-8.0 % Basophils (%) (Auto) 0.1 0.0-5.0 % Neutrophils # (Auto) 15.0 H 1.8-7.7 K/uL Lymphocytes # (Auto) 0.0 L 1.0-4.8 K/uL Monocytes # (Auto) 0.8 0.1-1.0 K/uL Eosinophils # (Auto) 0.00 0.00-0.70 K/uL Basophils # (Auto) 0.01 0.00-0.20 K/uL Absolute Immature Granulocyte (auto 0.26 0-1 K/uL Chemistry Labs: Test 06/17/25 09:38 06/17/25 09:37 06/17/25 04:15 06/16/25 08:45 Range/Units Lactic Acid Level 3.3 H 0.8-2.5 mmol/L Procalcitonin 0.22 0.05-0.5 ng/mL B-Type Natriuretic Peptide 2010 H 0-100 pg/mL Sodium Level 141 136-145 mmol/L Potassium Level 3.6 3.5-5.1 mmol/L Chloride Level 103 101-111 mmol/L Carbon Dioxide Level 23 21-32 mmol/L Blood Urea Nitrogen 82 *H 7-18 mg/dL Creatinine 2.5 H 0.5-1.0 mg/dL Glomerular Filtration Rate Calc 20 >90 mL/min Random Glucose 216 H 70-105 mg/dL Total Calcium 7.2 L 8.5-10.1 mg/dL Phosphorus Level 6.3 H 2.5-4.9 mg/dL Magnesium Level 2.20 1.80-2.40 mg/dL Total Bilirubin 7.3 #H 0.2-1.0 mg/dL Aspartate Amino Transf (AST/SGOT) 90 H 10-37 U/L Alanine Aminotransferase (ALT/SGPT) 249 H 12-78 U/L Alkaline Phosphatase 97 50-136 U/L Total Protein 5.2 L 6.0-8.3 g/dL Albumin 2.1 L 3.5-5.0 g/dL C-Reactive Protein, Quantitative 21.70 H 0.5-3.0 mg/L DIAGNOSTICS / RADIOLOGY: [address] [address] IMAGING REPORT Signed PATIENT: HUGO WYLIE MR#: [id number] : 1955 SEX: F AGE: 69 LOCATION: [facility] ORDER 2300 STATUS: ADM IN REPORT#: [id number] SERVICE 0600 REASON: chf ORDERING PHYSICIAN: SHMUEL DOLL PROCEDURE: CXR1VW - CHEST 1VW EXAM: CR Chest, 1 View. CLINICAL HISTORY: chf COMPARISON: 06/16/2025 FINDINGS: The right PICC line tip is at the SVC. LUNGS: Interval improvement in bilateral perihilar and bibasilar airspace disease. PLEURAL SPACES: No evidence of pleural effusion or pneumothorax. MEDIASTINUM: Mild cardiomegaly. Interval reduction in pulmonary vascular congestion. BONES: No acute osseous abnormality. Lower cervical spine implants. IMPRESSION: 1. Interval improvement in bilateral perihilar and bibasilar airspace disease with reduction in pulmonary vascular congestion. 2. Mild stable cardiomegaly. 3. Right PICC line tip at the SVC. /[place] DICTATED BY: DARREL GEORGE Jr., MD DATE: 06/17/251057 ELECTRONICALLY SIGNED BY: DARREL GEORGE Jr., MD DATE: 06/17/251057 PATIENT: HUGO WYLIE MR#: [id number] : 1955 SEX: F AGE: 69 LOCATION: [facility] ORDER 2300 STATUS: ADM IN REPORT#: [id number] SERVICE 0600 REASON: pulmonary edema ORDERING PHYSICIAN: KINSEY TENORIO MD PROCEDURE: CXR1VW - CHEST 1VW EXAM: CR Chest, 1 View. CLINICAL HISTORY: pulmonary edema COMPARISON: 06/14/2025 FINDINGS: A right PICC tip is seen at the proximal superior vena cava. LUNGS: Stable bilateral interstitial and patchy airspace opacities, more evident at the lower lobes, represent pulmonary edema. PLEURAL SPACES: No pneumothorax. Stable small left pleural effusion. MEDIASTINUM: Stable cardiomegaly with pulmonary vascular congestion. BONES: No acute osseous abnormality. Cervical spine implants. IMPRESSION: 1. Stable bilateral pulmonary edema, more prominent in the lower lobes, with cardiomegaly and pulmonary vascular congestion. 2. Stable small left pleural effusion. 3. Right PICC tip at proximal superior vena cava. Overall, in comparison to the previous chest radiograph, there have been no significant interval changes. /[place]st DICTATED BY: DARREL GEORGE Jr., MD DATE: 06/17/251109 ELECTRONICALLY SIGNED BY: DARREL GEORGE Jr., MD DATE: 06/17/251109 PATIENT: HUGO WYLIE MR#: [id number] : 1955 SEX: F AGE: 69 LOCATION: [facility] ORDER 25 STATUS: ADM IN REPORT#: [id number] SERVICE 22 REASON: check for aortic valve vegatations and EF ORDERING PHYSICIAN: KINSEY TENORIO MD PROCEDURE: ECHO FU LD - ECHO 2-D F/U-LTD APPROVED REPORT EXAM: Limited 3D/Two-dimensional echocardiogram with color Doppler. INDICATION ICD: Assess aortic valvular vegetation and assess ejection fraction 2D Dimensions LVED Vol(simp.) 139.0 mL LVES Vol(simp.) 59.0 mL LVEF(%, simp.) 58 % Deformation Strain Apical 4 -14.5 % Apical 2 -19.7 % Apical 3 -19.3 % Global Strain -17.8 % Left Ventricle Left ventricular cavity size is normal. GLS -18.0% There is normal left ventricular wall thickness. LVEF is 55-60%. Aortic Valve Aortic valve is trileaflet and opens well. Multiple vegeations seen on the aortic valve lealfelts. Large RCC leaflet vegetation seen protruding into the LVOT. Small vegetations seen on the LCC/NCC leaflets. No significant changed seen compared to previous echocardiogram. Other Information Quality : Limited/Follow-up DICTATED BY: JOHN VERA MD DATE: 06/14/25 132 ELECTRONICALLY SIGNED BY: JOHN VERA MD DATE: 06/14/252036 PATIENT: HUGO WYLIE MR#: [id number] : 1955 SEX: F AGE: 69 LOCATION: [facility] ORDER 8 STATUS: ADM IN REPORT#: [id number] SERVICE 6 REASON: pulmonary congestion ORDERING PHYSICIAN: KINSEY TENORIO MD PROCEDURE: CXR1VW - CHEST 1VW EXAM: CR CHEST, 1 VIEW CLINICAL HISTORY: pulmonary congestion ,CHF COMPARISON: CR: CHEST 1VW dated 06/12/2025 06:14 AM EST: TECHNIQUE: Single frontal radiograph of the chest was obtained. FINDINGS: Lines/Devices: A right PICC is present with its tip seen at the proximal part of the superior vena cava. Lungs: Progressive course as regards the previously noted bilateral interstitial and patchy airspace opacities., more evident at the lower lobes. Newly developed blunted left costophrenic angle suggestive of a mild left pleural effusion. There is no pneumothorax. Mediastinum and cardiovascular structures: The cardiac silhouette is mildly enlarged. Prominent aortic knuckle is noted. The central airway and mediastinal contours are otherwise unremarkable. Bones and soft tissues: Evidence of fixation of the lower cervical spine is noted. Soft tissues are unremarkable. IMPRESSION: 1. Progressive bilateral bilateral interstitial and patchy airspace opacities, more evident at the lower lobes. 2. Newly developed blunted left costophrenic angle suggestive of a mild left pleural effusion. 3. Mild cardiomegaly. 4. Stable prominent aortic knuckle. 5. As compared to the CR: CHEST 1VW dated 06/12/2025 06:14 AM EST: , progressive course as regards the previously noted bilateral interstitial as well as patchy pulmonary opacities,stationary course as regards the cardiomegaly. Right PICC still seen in situ. Newly developed minimal left pleural effusion. /Forest DICTATED BY: GIANLUCA ADAN MD DATE: 06/14/252251 ELECTRONICALLY SIGNED BY: GIANLUCA ADAN MD DATE: 06/14/252251 PATIENT: HUGO WYLIE MR#: [id number] : 1955 SEX: F AGE: 69 LOCATION: [facility] ORDER 2300 STATUS: ADM IN REPORT#: [id number] SERVICE 0600 REASON: CHF ORDERING PHYSICIAN: VY FOOTE MD PROCEDURE: CXR1VW - CHEST 1VW EXAM: CR Chest, 1 View. CLINICAL HISTORY: CHF COMPARISON: 06/11/2025 FINDINGS: The right PICC line tip is at the SVC. LUNGS: Interval improvement in the bilateral interstitial and patchy airspace opacities. PLEURAL SPACES: No pleural effusion or pneumothorax. MEDIASTINUM: Mild stable cardiomegaly with pulmonary vascular congestion. BONES: No aggressive appearing osseous lesion seen. Cervical spine fusion hardware. IMPRESSION: 1. Bilateral interstitial and patchy airspace opacities, reduced since the prior study. 2. Mild stable cardiomegaly. 3. Right PICC line tip at the SVC. /[place]st DICTATED BY: DARREL GEORGE Jr., MD DATE: 06/12/25 103 ELECTRONICALLY SIGNED BY: DARREL GEORGE Jr., MD DATE: 06/12/251035 PATIENT: HUGO WYLIE MR#: [id number] : 1955 SEX: F AGE: 69 LOCATION: [facility] ORDER 1204 STATUS: ADM IN REPORT#: [id number] SERVICE 1203 REASON: PICC placement ORDERING PHYSICIAN: VY FOOTE MD PROCEDURE: CXR1VW - CHEST 1VW CHEST 1VW REASON: PICC placement COMPARISON: Prior chest radiograph from 06/08/2025 is available. FINDINGS: Single view of the chest was obtained. There is cardiomegaly. There is diffuse interstitial pulmonary edema. There is a right-sided PIC catheter with tip in distal superior vena cava.. Mediastinum and bony thorax appear unremarkable. There is surgical changes with interpedicular screws and rods in the cervical spine there is anterior cervical disc fusion with orthopedic plate IMPRESSION: 1. The PICC catheter with the tip in the distal superior vena cava in satisfactory position 2. Cardiomegaly with interstitial pulmonary edema DICTATED BY: NARCISO ANTONIO MD DATE: 06/09/25 1228 ELECTRONICALLY SIGNED BY: NARCISO ANTONIO MD DATE: 06/09/25 1233 PATIENT: HUGO WYLIE MR#: [id number] : 1955 SEX: F AGE: 69 LOCATION: [facility] ORDER 16 STATUS: ADM IN REPORT#: [id number] SERVICE 0000 REASON: acute chf exacerbation sob ORDERING PHYSICIAN: RIGOBERTO TADEO PROCEDURE: ECHO CMP - ECHO 2-D COMPLETE APPROVED REPORT EXAM: Two-dimensional and M-mode echocardiogram with Doppler and color Doppler. INDICATION ICD: Acute congestive heart failure, shortness of breath 2D Dimensions RVDd 3.1 cm LVEF(%) 26.1 (>50%) LA ESV INDEX (BP) 35.28 mL/m2 IVSd 1.0 (0.7-1.1cm) FS(%) 12 % LVDd 5.0 (3.8-5.6cm) LA (2D) 4.3 (1.6-4.0cm) PWd 1.0 (0.7-1.1cm) Ao Root(2D) 3.4 (2.0-3.7cm) IVSs 1.0 cm LVOT diam 1.9 (1.8-2.4cm) LVDs 4.4 (2.5-4.0cm) PWs 1.6 cm Aortic Valve AoV Vmax 2.2 m/s Ao Peak GR 18.9 mmHg LVOT Vmax 1.6 m/s AoV VTI 0.3 m Ao Mean GR 9.2 mmHg LVOT VTI 0.24 m PATTIE (VMAX) 2.03 cm2 Al P1/2T 129 ms PATTIE (VTI) 2.0 cm2 Mitral Valve MV E Vmax 144.1 cm/s DECEL Time 105 ms MV A Vmax 82.2 cm/s P 1/2 T 34 ms E/A ratio 1.8 MVA (PHT) 6.5 cm2 TDI E/E' Medial 31.4 E/E' Lateral 15.7 Medial E' Peak V 4.59 cm/s Lateral E' Peak V 9.15 cm/s Pulmonary Valve PV Vmax 1.1 m/s PV Mean GR 2.1 mmHg PV Peak GR 4.6 mmHg Tricuspid Valve TR Vmax 2.1 m/s RAP (EST) 8 mmHg RVSP 26.1 mmHg TR Peak GR 18.1 mmHg Left Ventricle The left ventricle is normal size. There is normal LV segmental wall motion. There is normal left ventricular wall thickness. LVEF is 50-55%. The left ventricular diastolic function is normal. Right Ventricle The right ventricle is normal size. The right ventricular systolic function is normal. Atria The left atrium is mildly dilated. The right atrium is mildly dilated. Aortic Valve Aortic valve is trileaflet and opens well. Difficult to assess severity of aortic insufficiency. Would estimate [id number] Multiple vegetations seen on the aortic valve leafelts. Large Right coronary cusp leaflet vegetation seen protruding into the LVOT. Small non coronary cusp leaflet vegetation seen. Small left coronary cusp leaflet vegetation noted. There is no aortic valvular stenosis. Mitral Valve The mitral valve is normal in structure. There is moderate mitral valve regurgitation noted. There is no mitral valve stenosis. Tricuspid Valve The tricuspid valve is normal in structure. There is no tricuspid valve regurgitation noted. Pulmonic Valve The pulmonary valve is normal in structure. There is mild pulmonic valvular regurgitation. Great Vessels The aortic root is normal in size. IVC is not well visualized. Pericardium There is trivail pericardial effusion seen posteriorly Other Information Quality : Technically challenging study due to body habitus and limited cooperation of pt Conclusion LVEF is 50-55%. LVEF is 50-55%. Multiple vegetations seen on the aortic valve leafelts. Large Right coronary cusp leaflet vegetation seen protruding into the LVOT. Small non coronary cusp leaflet vegetation seen. Small left coronary cusp leaflet vegetation noted. Difficult to assess severity of aortic insufficiency. Would estimate [id number] There is moderate mitral valve regurgitation noted. DICTATED BY: BEN BROWN MD DATE: 06/09/25 9590 ELECTRONICALLY SIGNED BY: BEN BROWN MD DATE: 06/09/25 9973 PATIENT: HUGO WYLIE MR#: [id number] : 1955 SEX: F AGE: 69 LOCATION: [facility] ORDER 29 STATUS: ADM IN REPORT#: [id number] SERVICE 28 REASON: r/p P.E. ORDERING PHYSICIAN: JOHN NGUYEN PROCEDURE: CHES PE - CT CHEST PE PROTOCOL WWO CONT EXAM: CTA examination of the chest CLINICAL HISTORY: Rule out pulmonary embolism. TECHNIQUE: Postcontrast thin collimated axial CTA images of the chest were obtained with sagittal and coronal reformatted images also submitted. CT scan is done according to ALARA (As Low as Reasonably Achievable). COMPARISON: None provided. FINDINGS: Moderate pleural effusions bilaterally. Compressive atelectasis and consolidations in the bilateral lower lobes of the lung. Multifocal infiltrates and smooth interstitial thickening in the bilateral lung alejandro, reflecting multifocal pneumonia and pulmonary edema. No pneumothorax or masses evident. Small to medium pericardial effusion. Mild to moderate cardiomegaly. Calcific atherosclerotic disease in the thoracic aorta and coronary arteries. No thoracic aortic aneurysm. Dilated pulmonary trunk measures up to 4.4 cm in diameter. Perihilar vascular congestion. No filling defect or pulmonary thromboembolism is evident Mildly reactive mediastinal lymph nodes. Incidental thyroid nodules. Incidental mildly thickened bilateral adrenal glands. Atherosclerotic calcifications in the abdominal vessels. No acute bony abnormality is evident. Degenerative osseous changes. Chronic compression fracture in the T12 vertebral body with about 70% to 80% height reduction. IMPRESSION: No pulmonary thromboembolism. Small to medium pericardial effusion, cardiomegaly, pulmonary vascular congestion, pulmonary edema, and multifocal pneumonia in the bilateral lung alejandro. Moderate pleural effusions bilaterally. Compressive atelectasis and consolidations in the bilateral lower lobes of the lung. Mildly reactive mediastinal lymph nodes. No pneumothorax. Incidental thyroid nodules recommend ultrasound correlation. Incidental mildly enlarged bilateral adrenal glands, recommend a contrast-enhanced MRI of the adrenals for further characterization, if clinically indicated. /[facility] DICTATED BY: DARREL GEORGE Jr., MD DATE: 06/09/25155 ELECTRONICALLY SIGNED BY: DARREL GEORGE Jr., MD DATE: 06/09/25155 PATIENT: HUGO WYLIE MR#: [id number] : 1955 SEX: F AGE: 69 LOCATION: [facility] ORDER 51 STATUS: REG ER REPORT#: [id number] SERVICE 49 REASON: SHORTNESS A BREATH ORDERING PHYSICIAN: OLVIN DING ROAD PATCHER PROCEDURE: CXR1VW - CHEST 1VW EXAM: CR Chest, 1 View. CLINICAL HISTORY: SHORTNESS A BREATH COMPARISON: None provided. FINDINGS: There is bilateral perihilar and bibasilar airspace disease that may reflect pulmonary edema. Small bilateral pleural effusions. No pneumothorax. Mild to moderate cardiomegaly and pulmonary vascular congestion. IMPRESSION: 1. Bilateral perihilar and bibasilar airspace disease, possibly representing pulmonary edema, with small bilateral pleural effusions. 2. Mild to moderate cardiomegaly and pulmonary vascular congestion. /[place] DICTATED BY: DARREL GEORGE Jr., MD DATE: 06/08/251949 ELECTRONICALLY SIGNED BY: DARREL GEORGE Jr., MD DATE: 06/08/251949 ASSESSMENT: Hyponatremia Acute on chronic renal failure Acute hypoxic resp failure requiring BIPAP-POA Sepsis 2/2 community acquired pneumonia-POA NSTEMI-likely type II 2/2 demand ischemia from hypoxia vs. true cardiac etiology-POA- negative for chest pain or ST/T wave abnormality. HEART score 6 points=12-16.6% risk for MACE Possible new-onset CHF with exacerbation-POA Hyperlactatemia-POA Acute infectious encephalopathy-POA Suspected new-onset COPD with exacerbation-POA, in the setting of chronic nicotine disorder Pulmonary edema-POA Bilateral pleural effusions-POA Moderate hyponatremia, suspected acute-POA Sleep deprivation 2/2 current illness-POA History of paroxysmal AFib Chronic nicotine disorder: [id number] HX Prior CVA Neck and back surgery Detached retina Hyperthyroid disorder/Graves disease with right thyroid nodule HX of left greater trochanter fracture Medical non-compliance, HX of AMA last hospitalization in [facility] PLAN: Labs, diagnostic, radiologic exams reviewed and interpreted by myself and supervising physician. We have reviewed external records in detail Continue with diuretics. Require close monitoring of renal function and electrolytes Order CBC, CMP, and electrolytes in am Continue with antibiotics as per ID BiPAP as necessary, for respiratory distress IV pressors as needed Monitor blood pressure adjust medication doses as needed Avoid hypotensive episodes May use Dilaudid 0.5 mg IV every 6 hours as needed for severe pain Monitor blood sugars Strict intake, output, and daily weight should be monitored Please renally adjust medications Avoid nephrotoxic and nonsteroidal drugs Avoid contrast if possible Will continue to monitor renal function, anemia, electrolytes Treatment plan discussed with patient Questions were answered We have discussed with the other team physicians in detail about the care plan We will continue to monitor the patient closely Total critical care time spent with patient, nursing staff, critical care team over 35 minutes ATTESTATION BY PHYSICIAN I have seen and examined the patient. I reviewed the documentation, medical decision making, and treatment plan as noted by the mid-level provider above. I agree with the findings and plan of care. FLAVIA METCALF MD, [facility] Jun 17, 2025 13:08
--- NOTE | 2025-06-17 13:11 | PN ---
[facility] PROGRESS NOTE Date of Service: Jun 17, 2025 Time of Service: 12:58 SUBJECTIVE: HISTORY OF PRESENT ILLNESS: This is a 69-year-old female past medical history of emphysema peripheral neuropathy, atrial fibrillation and hyperthyroidism who was brought by EMS to the ED for complaints of shortness of breaths,dry cough and generalized body weakness which started for the past 3 weeks and getting worse this past few days.Patient reports she lives alone and a current heavy cigarette smoker 1 pack/day.As per patient she has been going to her PCP every week x 3 weeks and was started on steroids prednisone and inhaler and patient also reports was admitted for having atrial fibrillation last 05/09/25 and was seen by at [facility] [place]. Patient reports has not seen a manager emergency department.Patient complaints of chest tightness with dry cough for the past 3 weeks but has not improved and its getting worse so she decided to come to the ED .On further evaluation ,patient was asked by the undersigned if it come to appoint where she needs to be orally intubated and patient states she is okay and in the meantime she wants to try th e Bipap. Seen and examined patient in the ER awake,alert and appears very short of breath,she has a friend at bedside and helping her from time to time with medical history as patient appears anxious as well.Patient denies chest pain,palpitation,nausea,vomiting and fever. Latest vital signs temperature 98.1, heart rate 110, respiration 35, blood pressure 140/56 saturation 96 on B iPAP 40% FiO2. Labs: WBC 19 with negative left shift of neutrophils 84, hemoglobin 9, hematocrit 30, platelet count 386. Sodium 122, chloride 93, CO2 18, BUN 23, glucose 140, lactic acid 3.1 troponin 112 BNP 3370. D-dimer 3746, PT 15, INR 1.4 PTT 28. Influenza type a and B negative SARS COVID negative. Chest x-ray result revealed bilateral perihilar and bibasilar airspace disease possibly representing pulmonary edema with small bilateral pleural effusion. [id number] cardiomegaly and pulmonary vascular congestion. While in the ER patient received Solu-Medrol 125 mg IV, albuterol two unit dose via inhalation, levofloxacin 750 mg IV, Protonix 40 mg, NS 500 mL bolus, Lasix 80 mg IV and morphine 2 mg IV. Patient was started on Precedex per ICU radha mmendation. Admit patient for further medical management. 06/09/2025: The patient was seen and evaluated bedside in ICU, no family at bedside. Patient is agitated, anxious on max doses of Precedex, saturating 100% with FiO2 60 on BiPAP. Patient is currently on norepinephrine drip 0.05 mcg/mL/kg and heparin drip q.[address] chest showed no pulmonary thromboembolism, small to medium pericardial effusion, cardiomegaly, pulmonary vascular congestion, pulmonary edema and multifocal pneumonia in bilateral lung alejandro. Continue Zosyn, doxycycline, IV Lasix, Solu-Medrol IV. Morning lab showed white count 17.4, sodium 124, bicarb 14, lactic acid 3.7, troponin 178, BNP 3060, AST 1479, ALT 561. Patient has bicarb deficit of 336, we ordered sodium bicarbonate 100 mEq single dose and we will repeat bicarb this evening. Nephrology, Cardiology, critical Care on board we will continue to follow the recommendations. 06/10/2025: The patient was seen and evaluated bedside in ICU, no family at bedside. Patient is currently on Precedex, norepinephrine drip. Abdominal ultrasound showed focal edematous wall thickening of gallbladder with minimal pericholecystic fluid, recommended HIDA scan if there is persistent clinical concern for cholecystitis. Lab showed white count trending down to 17.1, lactic acid trending down to 3, AST 3143, ALT 1515. Zosyn has been discontinued by Infectious Disease, patient was started on cefepime and vancomycin. Cardiology recommended transesophageal echocardiography once the patient become more stable. 06/11/2025: The patient was seen and evaluated bedside in ICU, no family at bedside. Patient is currently on one-to-one sitter. Patient continues to be on Precedex, norepinephrine, heparin drip. Morning lab shows white count 22.3, sodium 135, potassium 3.1, BUN 52, creatinine 1.5, fibrinogen 265, lactic acid trended down to 2, AST trended down to 946, ALT trended down to 1026. Blood culture shows no growth so far. Continue IV antibiotics as recommended by Infectious Disease. 06/12/2025: Patient was evaluated bedside in room 215 and several family members were present at the bedside. Patient also has 2 on 1 sitter. Patient was awake and alert but is mildly confused. Patient is still recovering from sepsis from community-acquired pneumonia and her white count remained stable at 22.4k. Patient oxygenating well via high-flow nasal cannula Oxymizer with flow rate of 5 L. Still continues on amiodarone drip due to AFib with telemetry consistent with Afib. Patient is still pending a HIDA scan and VICK due to her respiratory status. We will continue linezolid, cefepime and doxycycline and start to taper methylprednisolone as per critical Care recommendations. 06/13/2025: Patient was seen and evaluated in room 215, no family at bedside. Patient is awake, alert, oriented x3, saturating 96 % with Oxymizer. Patient says that she is feeling better, denies any new or worsening symptoms. Cardiology recommended discontinuing amiodarone drip, started patient on amiodarone 200 mg twice daily. Labs show white count trending down to 19.2, BNP trending down to 3180, AST trending down to 193, ALT trending down to 608. We w ill continue linezolid, cefepime, metronidazole and doxycycline. 06/14/2025: Patient was seen and evaluated in room 215, no family at bedside. Patient is awake, alert, saturating 90% with 10L nasal cannula. Morning labs show white count trending down to 15.1, BUN 55, creatinine 1.7, BNP 4680, lactic acid 4.6, AST trending down to 105, ALT trending down to 468. We will order li mited echocardiogram to check for aortic valve vegetations and ejection fraction. Continue oral amiodarone, Lasix, Solu-Medrol, linezolid, cefepime, metronidazole, doxycycline. Plan for VICK as per cardiology. Cardiology, Infectious Disease on board we will continue to follow their recommendations. 06/15/2025: Patient was seen and evaluated in room 215, no family at bedside. Patient is awake, alert, saturating 96% with high-flow nasal cannula. Morning labs show BNP 4530, BUN 77, creatinine 1.9, white count 15.8. Limited echocardiogram was done which shows LVEF 55-60%, multiple vegetations on aortic valve leaflets. IV Lasix has been increased to 40 mg Q 8 by critical care team. Cardiology recommended discontinuing midodrine, heparin drip and patient was started on Lovenox. Continue oral amiodarone, Lasix, Solu-Medrol, linezolid, cefepime, metronidazole, doxycycline. Plan for VICK as per cardiology. Cardiology, Infectious Disease on board we will continue to follow their recommendations. 06/16/2025: Patient was seen and evaluated in room 215, no family at bedside. Patient is awake, alert, confused saturating 94% with high-flow nasal cannula. Morning labs show BNP trending down to 3070, lactic acid trending down to 3.7, potassium 2.9, BUN 80, creatinine 2.3. Negative Fluid balance today 600. We will replace potassium, continue oral amiodarone, IV Lasix, Solu-Medrol, l inezolid, cefepime, metronidazole, doxycycline. We will request case management for evaluation as patient will need long-term antibiotics for 4-6 weeks, critical care at discharge. Cardiology, Infectious Disease on board we will continue to follow their recommendations. 06/17/2025: Patient was seen and evaluated in room 215, no family at bedside. Patient is currently sedated, and unable to communicate, saturating 97% with BiPAP with a FiO2 of 60%. Patient was started on norepinephrine drip yesterday as her systolic blood pressure in the 80s. Today the plan is to wean off Precedex and norepinephrine drip. Morning labs show BNP trending down to 2170, lactic acid trending down to 3.1, BUN 82, creatinine 2.5, platelets trending down to 93. We ordered renal ultrasound, urine electrolytes, urine creatinine to further evaluate renal function. continue oral amiodarone, metoprolol, IV Lasix, Solu-Medrol, linezolid, cefepime, metronidazole, doxycycline. Cardiology, Infectious Disease on board we will continue to follow their recommendations. REVIEW OF SYSTEMS CONSTITUTIONAL: Denies fevers, chills, or night sweats. No unintentional weight loss reported. NEUROLOGICAL: Denies headache, amaurosis fugax, motor weakness, sensory deficit, vertigo/spinning sensation, gait abnormalities, or tremors. ENT: No hearing loss, otalgia, otorrhea, rhinitis, rhinorrhea, hoarseness, or sore throat. CARDIOVASCULAR: Denies any exertional angina, dyspnea on exertion, orthopnea, paroxysmal nocturnal dyspnea, palpitations, life-threatening arrhythmias, claudication. PULMONARY: Complaints of shortness of breaths, dry cough and chest tightness x3 weeks Denies phlegm/sputum, hemoptysis, pleuritic chest pain. SLEEP: Denies morning headaches, daytime somnolence or napping. Denies difficulty falling asleep, staying asleep, waking from sleep. Denies knowledge of snoring. GASTROINTESTINAL: Denies any type of dysphagia to either liquids or solids. Denies nausea, vomiting, pyrosis, early satiety, abdominal pain, diarrhea, constipation, or changes in stool consistency or caliber. Denies coffee-ground emesis, hematemesis, hematochezia, or melanotic stools. GENITOURINARY: Denies frequency, urgency, nocturia, hematuria or incontinence (Storage/Irritative symptoms.) Low urinary stream, straining to void, urinary intermittency or hesitancy, splitting of the voiding stream, terminal dribbling. ENDOCRINOLOGIC: Denies polyuria, polydipsia, polyphagia or heat/cold intolerances. HEMATOLOGIC: Denies thrombophilia/previous clots, or coagulopathy/bleeding disorders. ONCOLOGIC: Denies personal history of malignancy. DERMATOLOGIC: Denies rashes or pruritus. PSYCHIATRIC: Denies any suicidal or homicidal ideation. Denies hallucinations. PHYSICAL EXAM GENERAL APPEARANCE: The patient is awake, alert, and oriented to self but not to place and time ,moderate respiratory distress NEUROLOGICAL: Cranial nerves II-XII grossly intact. Motor is 5/5 in bilateral upper and lower extremities proximal to distal. No sensory deficits. HEENT: Face is symmetric. Pupils are equal and reactive. Extraocular movements are intact. NECK: Supple. No JVD. No thyromegaly. No submental, submandibular, pre- /postauricular, occipital or supraclavicular lymphadenopathy. CHEST: Normal chest expansion. No Telemetry. LUNGS: tachypneic, with NC via Oxymizer CARDIOVASCULAR: Tachycardic Regular. S1 and S2 normal. No appreciable rubs, murmurs or gallops. ABDOMEN: Soft, nontender, and nondistended. There is no rebound, voluntary guarding, or rigidity. : Deferred. Gonzalez. EXTREMITIES: Non-edematous and not cyanotic. No clubbing. Good capillary refill. SKIN: No skin breakdown. Vital Signs (last 8hr) Date Time Temp Pulse Resp B/P (MAP) Pulse Ox O2 Delivery O2 Flow Rate FiO2 06/17/25 11:52 90 21 60 06/17/25 10:34 75 16 06/17/25 09:17 75 17 60 06/17/25 09:00 75 16 103/40 (61) 99 06/17/25 08:45 78 17 112/43 (66) 98 06/17/25 08:30 79 17 118/47 (70) 97 06/17/25 08:15 92 17 125/58 (80) 97 06/17/25 08:00 99.1 06/17/25 08:00 78 17 114/36 (62) 97 06/17/25 07:45 76 17 113/42 (65) 98 06/17/25 07:30 76 16 111/36 (61) 96 06/17/25 07:15 76 18 112/41 (64) 96 06/17/25 07:00 76 18 112/44 (66) 97 06/17/25 06:37 74 17 110/41 (64) 97 06/17/25 06:30 72 23 106/37 (60) 96 06/17/25 06:30 71 18 06/17/25 06:28 71 18 60 06/17/25 06:15 71 18 107/41 (63) 97 06/17/25 06:00 71 16 107/42 (63) 95 06/17/25 05:45 71 15 111/41 (64) 96 06/17/25 05:41 107/43 06/17/25 05:30 70 16 107/41 (63) 96 06/17/25 05:15 70 17 107/43 (64) 96 06/17/25 05:00 71 17 113/52 (72) 96 LABS: Laboratory: Test 06/17/25 12:34 06/17/25 09:38 06/17/25 09:37 06/17/25 04:15 Range/Units Blood Gas Specimen Type Arterial Arterial Blood pH 7.265 L 7.350-7.450 Arterial Blood Partial Pressure CO2 48 H 32-45 mmHg Arterial Blood Partial Pressure O2 190.9 H 83.0-108.0 mmHg Arterial Blood HCO3 21.2 21.0-28.0 mmol/L Arterial Blood Oxygen Saturation 99.1 H 94.0-98.0 % Arterial Blood Base Excess -6.0 L -2.0-3.0 mmol/L Blood Gas Temperature 37.0 35.5-37.0 CELSIUS Blood Gas Vent Mode CPAP ROOM AIR FiO2 60.0 % Blood Gas CPAP 10 cm H2O Blood Gas Specimen Comment LR TYRONE Lactic Acid Level 3.3 H 0.8-2.5 mmol/L Procalcitonin 0.22 0.05-0.5 ng/mL B-Type Natriuretic Peptide 2010 H 0-100 pg/mL White Blood Count 24.4 #H 4.8-10.8 K/uL Red Blood Count 3.69 L 4.00-5.50 MIL/uL Hemoglobin 8.9 L 12.0-16.0 g/dL Hematocrit 28.1 L 36-48 % Mean Corpuscular Volume 76.2 L 79-99 fL Mean Corpuscular Hemoglobin 24.1 L 27.0-33.0 pg Mean Corpuscular Hemoglobin Concent 31.7 L 32.0-36.0 g/dL Red Cell Distribution Width 21.3 H 11.0-15.5 % Platelet Count 93 L 130-400 K/uL Mean Platelet Volume 7.5-10.5 fL Segmented Neutrophils % 99 H 40-70 % Monocytes % (Manual) 1 L 2-9 % Nucleated Red Blood Cells 3.0 H 0.0-0.19 % Differential Comment MANUAL DIFFERENTIAL White Cell Morphology Comment Platelet Morphology Comment See comments Red Blood Cell Morphology See comments Sodium Level 141 136-145 mmol/L Potassium Level 3.6 3.5-5.1 mmol/L Chloride Level 103 101-111 mmol/L Carbon Dioxide Level 23 21-32 mmol/L Blood Urea Nitrogen 82 *H 7-18 mg/dL Creatinine 2.5 H 0.5-1.0 mg/dL Glomerular Filtration Rate Calc 20 >90 mL/min Random Glucose 216 H 70-105 mg/dL Total Calcium 7.2 L 8.5-10.1 mg/dL Phosphorus Level 6.3 H 2.5-4.9 mg/dL Magnesium Level 2.20 1.80-2.40 mg/dL Total Bilirubin 7.3 #H 0.2-1.0 mg/dL Aspartate Amino Transf (AST/SGOT) 90 H 10-37 U/L Alanine Aminotransferase (ALT/SGPT) 249 H 12-78 U/L Alkaline Phosphatase 97 50-136 U/L Total Protein 5.2 L 6.0-8.3 g/dL Albumin 2.1 L 3.5-5.0 g/dL Test 06/16/25 08:45 06/16/25 05:15 Range/Units C-Reactive Protein, Quantitative 21.70 H 0.5-3.0 mg/L Immature Granulocyte % (Auto) 1.6 H 0-1 % Neutrophils (%) (Auto) 93.0 H 40.0-77.0 % Lymphocytes (%) (Auto) 0.2 L 21.0-51.0 % Monocytes (%) (Auto) 5.1 3.0-13.0 % Eosinophils (%) (Auto) 0.0 0.0-8.0 % Basophils (%) (Auto) 0.1 0.0-5.0 % Neutrophils # (Auto) 15.0 H 1.8-7.7 K/uL Lymphocytes # (Auto) 0.0 L 1.0-4.8 K/uL Monocytes # (Auto) 0.8 0.1-1.0 K/uL Eosinophils # (Auto) 0.00 0.00-0.70 K/uL Basophils # (Auto) 0.01 0.00-0.20 K/uL Absolute Immature Granulocyte (auto 0.26 0-1 K/uL Current Medications Medications (Trade) Dose Ordered Sig/Rossy Route PRN Reason Start Time Stop Time Status Last Admin Dose Admin Acetaminophen (TYLenol 325MG TAB) 650 mg Q4H PRN PO MILD PAIN (1-3) 06/08/25 20:30 07/08/25 20:29 06/12/25 10:16 650 MG Acetaminophen (TYLenol 325MG TAB) 650 mg Q6H PRN PO TEMPERATURE GREATER THAN 101.5 06/08/25 20:30 07/08/25 20:29 06/12/25 20:47 650 MG Albuterol (DUOneb) 1 udvial [id number] IH 06/08/25 22:00 07/08/25 21:59 06/17/25 10:34 1 UDVIAL Amiodarone HCl (pacERONE 200MG) 200 mg BID PO 06/13/25 21:00 07/13/25 20:59 06/16/25 21:24 200 MG Amiodarone HCl 540 mg/Dextrose 300 ml @ 16.667 mls/ hr PROTOCOL IV 06/12/25 10:00 06/13/25 03:59 DC 06/12/25 11:33 16.667 MLS/HR Amiodarone HCL/ Dextrose 100 ml @ 600 mls/hr PROTOCOL IV 06/12/25 05:00 06/12/25 06:53 DC 06/12/25 05:10 600 MLS/HR Amiodarone HCL/ Dextrose 100 ml @ 0 mls/hr PROTOCOL IV 06/12/25 07:00 06/12/25 07:01 DC Amiodarone HCL/ Dextrose 200 ml @ 33.333 mls/ hr PROTOCOL IV 06/12/25 05:00 06/12/25 06:53 DC 06/12/25 05:11 33.333 MLS/HR Budesonide (Pulmicort 0.5 Mg/2ml) 0.5 mg BIDRESP 06/09/25 18:00 07/09/25 17:59 06/17/25 06:30 0.5 MG Cefepime HCl (MAXipime 1 GM vial) 1 gm Q12H IVPB 06/10/25 14:00 06/10/25 14:35 DC 06/10/25 14:23 1 GM Cefepime HCl (MAXipime 1 GM vial) 1 gm Q12H9 IVPB 06/10/25 21:00 06/24/25 13:59 06/16/25 21:22 1 GM Cefepime HCl (MAXipime 1 GM vial) 1 gm Q8H IVPB 06/10/25 09:30 06/10/25 09:41 DC Dexmedetomidine/ Sodium Chloride (PRECEdex 200MCG/ 50ML-NS) 200 mcg PROTOCOL IV 06/16/25 11:30 07/16/25 11:29 06/17/25 05:39 200 MCG Dexmedetomidine/ Sodium Chloride (PRECEdex 400MCG/ 100ML-NS) 400 mcg PROTOCOL IV 06/08/25 20:00 06/11/25 17:00 DC 06/11/25 09:27 400 MCG Dorzolamide/ Timolol (Cosopt Eye Drops) 1 DROP BID OP 06/09/25 21:00 07/09/25 20:59 06/16/25 21:25 1 ML Doxycycline Hyclate 250 ml @ 125 mls/hr Q12H IV 06/08/25 23:00 06/18/25 22:59 06/16/25 23:57 125 MLS/HR Enoxaparin Sodium (Lovenox (Pharmacy To Dose)) 1 unit Q24H SQ 06/15/25 14:00 06/15/25 14:01 DC Enoxaparin Sodium (Lovenox 80mg) 70 mg Q24H SQ 06/15/25 14:30 06/17/25 12:11 DC 06/16/25 14:39 70 MG Famotidine (Pepcid 20mg Vial) 20 mg DAILY IV 06/09/25 09:00 06/09/25 13:09 DC 06/09/25 08:39 20 MG Fluticasone Propionate (FLOnase 50 mcg/ spray 16g bottle) 1 SPRAY DAILY EN 06/12/25 15:00 07/12/25 14:59 06/16/25 08:23 1 SPRAYS Furosemide (LASix 20MG VIAL) 20 mg BID IVP 06/12/25 09:00 06/12/25 09:19 DC 06/12/25 08:57 20 MG Furosemide (LASix 40MG VIAL) 20 mg BID IVP 06/11/25 21:00 06/12/25 06:54 DC 06/11/25 21:26 20 MG Furosemide (LASix 40MG VIAL) 40 mg BID IVP 06/08/25 21:00 06/11/25 17:00 DC 06/11/25 09:32 40 MG Furosemide (LASix 40MG VIAL) 40 mg BID IVP 06/12/25 21:00 06/14/25 13:19 DC 06/14/25 08:24 40 MG Furosemide (LASix 40MG VIAL) 40 mg Q8H6 IVP 06/14/25 14:00 06/17/25 12:12 DC 06/17/25 05:22 40 MG Heparin Sodium (Porcine) (HEParin 5,000 UNIT VIAL) *calculation based on ACTUAL B... AD PRN IV HEPARIN PROTOCOL 06/09/25 04:00 06/15/25 14:01 DC Heparin Sodium/ Dextrose 250 ml @ 0 mls/hr Q6H IV 06/09/25 04:00 06/15/25 13:58 DC 06/15/25 02:42 4.7 MLS/HR Home Med (Home Medication) (Methimazole 5MG TAB) - 0.5 TAB... DAILY PO 06/10/25 09:00 07/10/25 08:59 06/16/25 08:23 1 EACH Lactulose (Constulose 20gm/ 30ml Udcup) 20 gm BID PRN PO CONSTIPATION 06/13/25 07:30 07/13/25 07:29 Latanoprost (Xalatan) 1 DROP HS OD 06/09/25 21:00 07/09/25 20:59 06/16/25 21:26 1 DROP Levofloxacin/ Dextrose 100 ml @ 100 mls/hr Q24H IV 06/09/25 20:00 06/08/25 22:40 DC Linezolid 300 ml @ 150 mls/hr Q12H IV 06/11/25 11:30 06/11/25 12:38 DC Linezolid 300 ml @ 150 mls/hr Q12H IV 06/11/25 14:30 06/21/25 14:29 06/17/25 02:14 150 MLS/HR Magnesium Sulfate 50 ml @ 0 mls/hr PROTOCOL PRN IV MAGNESIUM PROTOCOL 06/09/25 17:00 07/09/25 16:59 06/12/25 03:21 25 MLS/HR Methylprednisolone Sodium Succinate (Solu-medROL 40MG) 40 mg Q12H9 IVP 06/12/25 21:00 07/09/25 13:29 06/16/25 21:23 40 MG Methylprednisolone Sodium Succinate (Solu-medROL 40MG) 40 mg Q8H IVP 06/09/25 13:30 06/12/25 14:11 DC 06/12/25 13:23 40 MG Metoprolol Tartrate (loprESSOR) 2.5 mg Q6H PRN IV heart rate greater than 110 06/12/25 03:30 07/12/25 03:29 Metoprolol Tartrate (loprESSOR) 25 mg BID PO 06/12/25 21:00 06/17/25 12:12 DC 06/16/25 21:24 25 MG Metronidazole/ Sodium Chloride 100 ml @ 100 mls/hr Q8H6 IVPB 06/10/25 14:00 06/20/25 13:59 06/17/25 05:22 100 MLS/HR Midodrine (PROAMatine 5 MG TABLET) 5 mg TID PO 06/10/25 14:00 06/11/25 08:52 DC 06/10/25 20:08 5 MG Midodrine (PROAMatine 5 MG TABLET) 10 mg TID PO 06/11/25 09:00 06/15/25 13:58 DC 06/14/25 21:14 10 MG Nicotine (Nicoderm) 21 mg DAILY TD 06/08/25 23:00 07/08/25 22:59 06/16/25 08:22 21 MG Norepinephrine 250 ml @ 0 mls/hr PROTOCOL IV 06/09/25 01:00 07/09/25 00:59 06/17/25 05:41 27.7 MLS/HR Olanzapine (ZyPREXA 5 mg tab) 5 mg BID PO 06/10/25 21:00 06/17/25 12:13 DC 06/16/25 21:24 5 MG Ondansetron HCl (zoFRAN 4MG INJ) 4 mg Q6H PRN IV NAUSEA/VOMITING 06/08/25 20:30 07/08/25 20:29 Oseltamivir Phosphate (Tamiflu) 75 mg BID PO 06/09/25 21:00 06/10/25 09:08 DC 06/10/25 09:03 75 MG Pantoprazole Sodium (PROTonix 40MG INJ) 40 mg DAILY IVP 06/10/25 09:00 07/10/25 08:59 06/16/25 08:21 40 MG Pharmacy Profile Note (Pharmacy Communication) 1 each ONCE MISC 06/09/25 03:00 06/09/25 03:24 DC Pharmacy Profile Note (Pharmacy Communication) 1 each ONCE MISC 06/11/25 11:30 06/11/25 11:19 DC Pharmacy Profile Note (Pharmacy Communication) 1 each ONCE MISC 06/16/25 11:00 06/16/25 11:08 DC Pharmacy Profile Note (Pharmacy Communication) 1 each ONCE MISC 06/16/25 17:00 06/16/25 17:10 DC Phytonadione (Vitamin K 10mg/ 1ml Adult Vial) 10 mg DAILY SQ 06/11/25 09:00 06/13/25 15:00 DC 06/13/25 09:24 10 MG Phytonadione (Vitamin K 10mg/ 1ml Adult Vial) 10 mg Q24H SQ 06/10/25 15:00 06/10/25 16:55 DC 06/10/25 15:11 10 MG Piperacillin Sod/ Tazobactam Sod (Zosyn 3.375gm+NS 50ml) 3.375 gm Q8H IV 06/08/25 23:00 06/10/25 09:08 DC 06/10/25 07:10 3.375 GM Potassium Chloride 100 ml @ 50 mls/hr AD PRN IV POTASSIUM PROTOCOL 06/09/25 17:00 06/11/25 06:10 DC 06/09/25 21:18 50 MLS/HR Potassium Chloride 100 ml @ 100 mls/hr AD PRN IV POTASSIUM PROTOCOL 06/09/25 17:00 07/09/25 16:59 06/16/25 06:09 100 MLS/HR Potassium Chloride 100 ml @ 100 mls/hr AD PRN IV POTASSIUM PROTOCOL 06/16/25 12:00 07/16/25 11:59 Potassium Chloride (K-Dur/Klor-Con 20meq) 20 meq AD PRN PO POTASSIUM PROTOCOL 06/09/25 17:00 07/09/25 16:59 Potassium Chloride (KCl 10% Elixir 20meq/15ml) 20 meq AD PRN PO POTASSIUM PROTOCOL 06/09/25 17:00 07/09/25 16:59 Sevelamer HCl (RENAgel 800 MG TAB) 400 mg TIDMEALS PO 06/17/25 12:00 07/17/25 11:59 Sodium Bicarbonate 150 meq/Sodium Chloride 1,150 ml @ 100 mls/hr [id number] IVP 06/09/25 12:00 06/09/25 12:29 DC Sodium Bicarbonate (Sodium Bicarbonate) 650 mg BID PO 06/13/25 11:30 06/13/25 11:58 DC Sodium Bicarbonate (Sodium Bicarbonate) 1,300 mg BID PO 06/13/25 21:00 07/13/25 20:59 06/16/25 21:24 1,300 MG Vancomycin HCl 250 ml @ 125 mls/hr Q24H IV 06/11/25 10:00 06/11/25 11:15 DC 06/11/25 09:31 125 MLS/HR Vancomycin HCl (Vancomycin Protocol) 1 each AD IV 06/10/25 09:30 06/11/25 11:15 DC Ziprasidone (Geodon) 10 mg Q6H PRN IM AGITATION/PSYCHOSIS 06/09/25 18:00 06/17/25 12:13 DC 06/11/25 17:28 10 MG DIAGNOSTICS / RADIOLOGY: [ ] [place] [address] [place] [address] IMAGING REPORT Signed PATIENT: HUGO WYLIE MR#: [id number] : 1955 SEX: F AGE: 69 LOCATION: 2CH ORDER 2300 STATUS: ADM IN REPORT#: [id number] SERVICE 0600 REASON: chf ORDERING PHYSICIAN: SHMUEL DOLL PROCEDURE: CXR1VW - CHEST 1VW EXAM: CR Chest, 1 View. CLINICAL HISTORY: chf COMPARISON: 06/16/2025 FINDINGS: The right PICC line tip is at the SVC. LUNGS: Interval improvement in bilateral perihilar and bibasilar airspace disease. PLEURAL SPACES: No evidence of pleural effusion or pneumothorax. MEDIASTINUM: Mild cardiomegaly. Interval reduction in pulmonary vascular congestion. BONES: No acute osseous abnormality. Lower cervical spine implants. IMPRESSION: 1. Interval improvement in bilateral perihilar and bibasilar airspace disease with reduction in pulmonary vascular congestion. 2. Mild stable cardiomegaly. 3. Right PICC line tip at the SVC. /[place] DICTATED BY: DARREL GEORGE Jr., MD DATE: 06/17/251057 ELECTRONICALLY SIGNED BY: DARREL GEORGE Jr., MD DATE: 06/17/251057 ASSESSMENT: Acute hypoxemic respiratory failure POA Sepsis secondary to community acquired pneumonia-POA Infective endocarditis involving the aortic valve- culture negative. Aortic insufficiency due to Multiple vegetations seen on the aortic valve leafelts. (2D echo 06/09/2025) Acute CHF exacerbation with possible pulmonary edema POA Elevated troponin likely due to type 2 demand ischemia POA Acute kidney injury Acute COPD exacerbation POA Nicotine Dependence POA Acute anemia POA Acute leukocytosis POA Moderate Hyponatremia and hypochloremia POA Hyperglycemia POA Lactic acidosis POA Hyperthyroidism POA Peripheral neuropathy POA History of emphysema POA History of atrial fibrillation not on anticoagulation PLAN: Acute hypoxemic respiratory failure POA On Presentation patient's respiratory rate 30, heart rate 108, saturating 96% with2 L nasal cannula Chest x-ray showed bilateral perihilar and bibasilar airspace disease Patient on BiPAP with FiO2 of 60%, continue DuoNeb q.4 Continue IV Solu-Medrol 40 mg q.12h IV Critical Care on board, we will follow the recommendations. Sepsis secondary to community acquired pneumonia-POA On presentation heart rate 108, respiratory rate 30, white count 19.7, lactic acid 3.1 Chest x-ray showed bilateral perihilar and bibasilar airspace disease CT chest showed multifocal pneumonia bilateral lungs, pulmonary vascular congestion, pulmonary edema Patient was started on norepinephrine drip on 06/16/2025 due to systolic blood pressure in 80s Continue on linezolid IV q.12h , cefepime IV q.12h Continue doxycycline q.12h IV , metronidazole q.8 IV We will trend lactic acid Moderate Hyponatremia and hypochloremia POA On presentation sodium 122, chloride 93 Serum osmolality low at 274, urine osmolality normal, BNP 4530 Hyponatremia most likely due to fluid overload Continue IV Lasix 40 mg q8 Sodium today 141 Nephrology on board, we will follow the recommendations. Aortic insufficiency due to Multiple vegetations seen on the aortic valve leafelts. (2D echo 06/09/2025) 2D echocardiogram showed LVEF 50-55%, normal left ventricular diastolic function, normal right ventricular systolic function Multiple vegetations seen on aortic valve leaflets, difficulty to assess severity of aortic insufficiency, moderate mitral valve regurgitation BNP trended down to 2170 today Continue IV Lasix 40 mg q8 Vancomycin was stopped by Infectious Disease, patient was started on linezolid IV q.12h , continue cefepime Continue doxycycline q.12h IV, metronidazole q.8 IV Blood culture showed no growth so far We will Request consultation from Infectious Disease GI Prophylaxis with famotidine 20 mg IV daily DVT prophylaxis from SCDs ATTESTATION BY PHYSICIAN I have seen and examined the patient. I reviewed the documentation, medical decision making, and treatment plan as noted by the resident physician above. I agree with the findings and plan of care. MIKAYLA RAINES MD, ADIL SHAH QUADRI MD Jun 17, 2025 13:11
[2025-06-17] MEDS ORDERED: GLUCAGON 1MG KIT 1 MG ML IM PRN (14:30)
[2025-06-17] MEDS ORDERED: DEXTROSE 50%-WATER 50 ML DISP.SYRIN IV PRN (14:30)
--- NOTE | 2025-06-17 15:45 | HMCIMG ---
EXAM: CT SCAN OF THE BRAIN WITHOUT CONTRAST CLINICAL HISTORY: Encephalopathy. TECHNIQUE: Axial computed tomography images of the head and brain were obtained without intravenous contrast. Coronal and sagittal reformatted images were obtained. Radiation dose reduction was achieved using ALARA (as low as reasonably achievable) principles including automatic exposure control, adjustment of mA and/or kV according to patient size and weight, and the use of iterative reconstruction techniques. RADIATION DOSE: CTDIvol 40.80 mGy; DLP 861.60 mGycm. CONTRAST: No intravenous contrast administered. COMPARISON: None provided. FINDINGS: Brain parenchyma: Focal area of encephalomalacia is present in the right occipitaltemporal region with associated volume loss. No acute intraparenchymal hemorrhage, mass, or mass effect is identified. White matter: Scattered hypodense foci in the bilateral periventricular and subcortical white matter are most compatible with chronic small vessel ischemic change. Graywhite matter differentiation is preserved. Ventricles and cisterns: Mild prominence of the ventricular system, sulcal spaces, basal cisterns, and sylvian fissures, in keeping with age-related cerebral volume loss. Mild ex vacuo dilatation of the occipital horn of the right lateral ventricle adjacent to the area of encephalomalacia. No hydrocephalus or midline shift is seen. Extra-axial spaces: Extra-axial spaces are mildly prominent, consistent with generalized cerebral atrophy. No acute extra-axial fluid collection or hemorrhage is demonstrated. Posterior fossa: Brainstem and cerebellum are unremarkable without focal abnormality. Sellar/parasellar region: Pituitary gland, optic chiasm, and pineal region appear unremarkable. CP angles and IACs: Cerebellopontine angle cisterns and internal auditory canals are clear and unremarkable. Skull and sinuses: Calvarium and skull base demonstrate normal bone density without acute fracture or destructive osseous lesion. The visualized paranasal sinuses are clear. IMPRESSION: * No CT evidence of acute intracranial hemorrhage, mass effect, or acute territorial infarct in this patient with encephalopathy. 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 * Mild generalized cerebral atrophy with chronic small vessel ischemic changes in the supratentorial white matter, in keeping with age-related and microvascular disease. /[place]
[2025-06-17 16:23] LABS: ABG BASE EXCESS -4.3 mmol/L (-2.0-3.0); ABG HCO3 22.2 mmol/L (21.0-28.0); ABG OXYGEN SATURATION 99.2 % (94.0-98.0); ABG PCO2 47 mmHg (32-45); ABG PH 7.289 (7.350-7.450); CARBON MONOXIDE 1.0 % (0.5-1.5); PO2, ARTERIAL BG 224.7 mmHg (83.0-108.0); TEMPERATURE, CELSIUS BG 37.0 CELSIUS (35.5-37.0)
--- NOTE | 2025-06-17 16:49 | NUR ---
NURSING NOTE 0861 DR. REED ROUNDED ON PATIENT. MADE AWARE OF UNEQUAL PUPIL ASSESSMENT FINDINGS ON EXAM AND A NEUROLOGY CONSULT WAS PLACED. 1042: DR. DARDEN MADE AWARE OF CONSULT SEE [facility] FOR ORDERS. LUMBAR PUNCTURE PLANNED TOMORROW 06/18 WITH IR, DR. ANTONIO. 1400: DR. FOOTE ROUND ON PATIENT OK TO USE PRECIDEX FOR AGITATION AND TO TAKE PATIENT TO CT SCAN.
--- NOTE | 2025-06-17 16:56 | PN ---
GASTROENTEROLOGY PROGRESS NOTE Date of Visit: Jun 17, 2025 Time of Visit: 16:55 Events / Notes: [ ] Review of Systems: CONSTITUTIONAL: No malaise or change in sensation of wellbeing. ENMT: No rhinorrhea, otorrhea, sinus pain, ear ache. CARDIOVASCULAR: No angina, palpitations, orthopnea or paroxysmal dyspnea. RESPIRATORY: No SOB. GASTROINTESTINAL: No abdominal pain, nausea, vomiting, diarrhea, hematemesis, melena or change in the patient's habitual bowel movements consistency/number. GENITOURINARY: No dysuria, hematuria or change in bladder continence. MUSCULOSKELETAL: No new muscle pain or decrease in muscular strength. No new joint swelling, redness or tenderness. SKIN: No new rash. Physical Exam: GEN: Awake, alert, oriented in person, time and place, and in no acute distress. HEENT: No sinus tenderness. Tympanic membranes were not examined. No rhinorrhea. Oral pharyngeal mucosa is pink, moist and within normal limits. Neck is supple with no cervical lymphadenopathy, thyromegaly or JVD. CHEST: Inspection, palpation and percussion of the chest were unremarkable. Lung auscultation revealed normal breath sounds bilaterally. CARDIAC: PMI is within normal limits. Heart sounds are regular. Normal S1, S2. No gallop or murmur. ABD: Soft, non-tender and not distended. No peritoneal signs on palpation. No organomegaly. Normal bowel sounds. EXT: No cyanosis or clubbing. No edema. SKIN: Intact. No rashes. JOINTS: No evidence of synovitis or acute arthritis. NEURO: Alert and oriented to name, place and person. Cranial nerve examination is unremarkable. No focal motor deficits. Normal speech. Gait is normal. Strength is normal. Vital Signs (last 8hr) Date Time Temp Pulse Resp B/P (MAP) Pulse Ox O2 Delivery O2 Flow Rate FiO2 06/17/25 16:51 40 06/17/25 15:34 99.0 06/17/25 15:15 83 17 94/30 (51) 100 06/17/25 15:00 91 17 104/36 (58) 99 06/17/25 14:40 82 17 99/33 (55) 100 06/17/25 14:13 77 23 06/17/25 14:11 77 23 60 06/17/25 14:00 91 31 86/35 (52) 100 06/17/25 13:45 78 19 101/32 (55) 100 06/17/25 13:30 78 18 100/32 (54) 100 06/17/25 13:20 60 06/17/25 13:15 78 17 90/27 (48) 100 06/17/25 13:00 82 16 92/33 (52) 100 06/17/25 12:45 83 19 101/37 (58) 100 06/17/25 12:30 87 29 110/38 (62) 100 06/17/25 12:15 89 12 116/45 (68) 100 06/17/25 12:00 88 28 112/49 (70) 100 06/17/25 12:00 99 CPAP+ 30 60 06/17/25 11:52 90 21 60 06/17/25 11:45 92 26 127/48 (74) 100 06/17/25 11:30 85 23 109/45 (66) 100 06/17/25 11:15 85 30 95/67 (76) 100 06/17/25 11:00 83 30 107/46 (66) 100 06/17/25 10:45 84 27 110/48 (68) 100 06/17/25 10:34 75 16 06/17/25 10:30 75 21 94/41 (58) 99 06/17/25 10:15 75 17 94/37 (56) 99 06/17/25 10:00 73 19 89/34 (52) 98 06/17/25 09:45 74 16 85/35 (52) 98 06/17/25 09:30 74 18 86/38 (54) 99 06/17/25 09:17 75 17 60 06/17/25 09:15 74 18 99/40 (59) 99 06/17/25 09:00 75 16 103/40 (61) 99 Laboratory: [ ] Laboratory: Test 06/17/25 16:21 06/17/25 16:08 06/17/25 12:34 06/17/25 09:38 Range/Units Blood Gas Specimen Type Arterial Arterial Blood pH 7.289 L 7.350-7.450 Arterial Blood Partial Pressure CO2 47 H 32-45 mmHg Arterial Blood Partial Pressure O2 224.7 H 83.0-108.0 mmHg Arterial Blood HCO3 22.2 21.0-28.0 mmol/L Arterial Blood Oxygen Saturation 99.2 H 94.0-98.0 % Arterial Blood Base Excess -4.3 L -2.0-3.0 mmol/L Hemoglobin (Blood Gas) 9.4 L 12.0-16.0 g/dL Sodium (Blood Gas) 139 136-145 MMOL/L Bedside Potassium (Blood Gas) 3.6 3.4-4.5 MMOL/L Bedside Chloride (Blood Gas) 106 98-107 MMOL/L Bedside Glucose (Blood Gas) 270 H 65-95 MG/DL Bedside Ionized Calcium (Blood Gas) 0.98 L 1.15-1.33 MMOL/L Bedside Lactic Acid (Blood Gas) 3.79 *H 0.36-0.75 MMOL/L Blood Gas Temperature 37.0 35.5-37.0 CELSIUS Blood Gas Respiration Rate 18.0 min. Blood Gas Vent Mode BIPAP 15.7 ROOM AIR FiO2 60.0 % Blood Gas Specimen Comment LR TYRONE Whole Blood Glucose 260 H 70-110 MG/DL Blood Gas CPAP 10 cm H2O Lactic Acid Level 3.3 H 0.8-2.5 mmol/L Procalcitonin 0.22 0.05-0.5 ng/mL Test 06/17/25 09:37 06/17/25 04:15 06/16/25 08:45 06/16/25 05:15 Range/Units B-Type Natriuretic Peptide 2010 H 0-100 pg/mL White Blood Count 24.4 #H 4.8-10.8 K/uL Red Blood Count 3.69 L 4.00-5.50 MIL/uL Hemoglobin 8.9 L 12.0-16.0 g/dL Hematocrit 28.1 L 36-48 % Mean Corpuscular Volume 76.2 L 79-99 fL Mean Corpuscular Hemoglobin 24.1 L 27.0-33.0 pg Mean Corpuscular Hemoglobin Concent 31.7 L 32.0-36.0 g/dL Red Cell Distribution Width 21.3 H 11.0-15.5 % Platelet Count 93 L 130-400 K/uL Mean Platelet Volume 7.5-10.5 fL Segmented Neutrophils % 99 H 40-70 % Monocytes % (Manual) 1 L 2-9 % Nucleated Red Blood Cells 3.0 H 0.0-0.19 % Differential Comment MANUAL DIFFERENTIAL White Cell Morphology Comment Platelet Morphology Comment See comments Red Blood Cell Morphology See comments Sodium Level 141 136-145 mmol/L Potassium Level 3.6 3.5-5.1 mmol/L Chloride Level 103 101-111 mmol/L Carbon Dioxide Level 23 21-32 mmol/L Blood Urea Nitrogen 82 *H 7-18 mg/dL Creatinine 2.5 H 0.5-1.0 mg/dL Glomerular Filtration Rate Calc 20 >90 mL/min Random Glucose 216 H 70-105 mg/dL Total Calcium 7.2 L 8.5-10.1 mg/dL Phosphorus Level 6.3 H 2.5-4.9 mg/dL Magnesium Level 2.20 1.80-2.40 mg/dL Total Bilirubin 7.3 #H 0.2-1.0 mg/dL Aspartate Amino Transf (AST/SGOT) 90 H 10-37 U/L Alanine Aminotransferase (ALT/SGPT) 249 H 12-78 U/L Alkaline Phosphatase 97 50-136 U/L Total Protein 5.2 L 6.0-8.3 g/dL Albumin 2.1 L 3.5-5.0 g/dL C-Reactive Protein, Quantitative 21.70 H 0.5-3.0 mg/L Immature Granulocyte % (Auto) 1.6 H 0-1 % Neutrophils (%) (Auto) 93.0 H 40.0-77.0 % Lymphocytes (%) (Auto) 0.2 L 21.0-51.0 % Monocytes (%) (Auto) 5.1 3.0-13.0 % Eosinophils (%) (Auto) 0.0 0.0-8.0 % Basophils (%) (Auto) 0.1 0.0-5.0 % Neutrophils # (Auto) 15.0 H 1.8-7.7 K/uL Lymphocytes # (Auto) 0.0 L 1.0-4.8 K/uL Monocytes # (Auto) 0.8 0.1-1.0 K/uL Eosinophils # (Auto) 0.00 0.00-0.70 K/uL Basophils # (Auto) 0.01 0.00-0.20 K/uL Absolute Immature Granulocyte (auto 0.26 0-1 K/uL Current Medications Medications (Trade) Dose Ordered Sig/Rossy Route PRN Reason Start Time Stop Time Status Last Admin Dose Admin Acetaminophen (TYLenol 325MG TAB) 650 mg Q4H PRN PO MILD PAIN (1-3) 06/08/25 20:30 07/08/25 20:29 06/12/25 10:16 650 MG Acetaminophen (TYLenol 325MG TAB) 650 mg Q6H PRN PO TEMPERATURE GREATER THAN 101.5 06/08/25 20:30 07/08/25 20:29 06/12/25 20:47 650 MG Albuterol (DUOneb) 1 udvial [id number] 06/08/25 22:00 07/08/25 21:59 06/17/25 14:12 1 UDVIAL Amiodarone HCl (pacERONE 200MG) 200 mg BID PO 06/13/25 21:00 07/13/25 20:59 06/16/25 21:24 200 MG Amiodarone HCl 540 mg/Dextrose 300 ml @ 16.667 mls/ hr PROTOCOL IV 06/12/25 10:00 06/13/25 03:59 DC 06/12/25 11:33 16.667 MLS/HR Amiodarone HCL/ Dextrose 100 ml @ 600 mls/hr PROTOCOL IV 06/12/25 05:00 06/12/25 06:53 DC 06/12/25 05:10 600 MLS/HR Amiodarone HCL/ Dextrose 100 ml @ 0 mls/hr PROTOCOL IV 06/12/25 07:00 06/12/25 07:01 DC Amiodarone HCL/ Dextrose 200 ml @ 33.333 mls/ hr PROTOCOL IV 06/12/25 05:00 06/12/25 06:53 DC 06/12/25 05:11 33.333 MLS/HR Budesonide (Pulmicort 0.5 Mg/2ml) 0.5 mg BIDRESP 06/09/25 18:00 07/09/25 17:59 06/17/25 06:30 0.5 MG Cefepime HCl (MAXipime 1 GM vial) 1 gm Q12H IVPB 06/10/25 14:00 06/10/25 14:35 DC 06/10/25 14:23 1 GM Cefepime HCl (MAXipime 1 GM vial) 1 gm Q12H9 IVPB 06/10/25 21:00 06/24/25 13:59 06/17/25 12:58 1 GM Cefepime HCl (MAXipime 1 GM vial) 1 gm Q8H IVPB 06/10/25 09:30 06/10/25 09:41 DC Dexmedetomidine/ Sodium Chloride (PRECEdex 200MCG/ 50ML-NS) 200 mcg PROTOCOL IV 06/16/25 11:30 07/16/25 11:29 06/17/25 14:45 200 MCG Dexmedetomidine/ Sodium Chloride (PRECEdex 400MCG/ 100ML-NS) 400 mcg PROTOCOL IV 06/08/25 20:00 06/11/25 17:00 DC 06/11/25 09:27 400 MCG Dextrose (D50w) 50 ml AD PRN IV HYPOGLYCEMIA PROTOCOL 06/17/25 14:30 07/17/25 14:29 Dorzolamide/ Timolol (Cosopt Eye Drops) 1 DROP BID OP 06/09/25 21:00 07/09/25 20:59 06/16/25 21:25 1 ML Doxycycline Hyclate 250 ml @ 125 mls/hr Q12H IV 06/08/25 23:00 06/18/25 22:59 06/17/25 12:58 125 MLS/HR Enoxaparin Sodium (Lovenox (Pharmacy To Dose)) 1 unit Q24H SQ 06/15/25 14:00 06/15/25 14:01 DC Enoxaparin Sodium (Lovenox 80mg) 70 mg Q24H SQ 06/15/25 14:30 06/17/25 12:11 DC 06/16/25 14:39 70 MG Famotidine (Pepcid 20mg Vial) 20 mg DAILY IV 06/09/25 09:00 06/09/25 13:09 DC 06/09/25 08:39 20 MG Fluticasone Propionate (FLOnase 50 mcg/ spray 16g bottle) 1 SPRAY DAILY EN 06/12/25 15:00 07/12/25 14:59 06/16/25 08:23 1 SPRAYS Furosemide (LASix 20MG VIAL) 20 mg BID IVP 06/12/25 09:00 06/12/25 09:19 DC 06/12/25 08:57 20 MG Furosemide (LASix 40MG VIAL) 20 mg BID IVP 06/11/25 21:00 06/12/25 06:54 DC 06/11/25 21:26 20 MG Furosemide (LASix 40MG VIAL) 40 mg BID IVP 06/08/25 21:00 06/11/25 17:00 DC 06/11/25 09:32 40 MG Furosemide (LASix 40MG VIAL) 40 mg BID IVP 06/12/25 21:00 06/14/25 13:19 DC 06/14/25 08:24 40 MG Furosemide (LASix 40MG VIAL) 40 mg Q8H6 IVP 06/14/25 14:00 06/17/25 12:12 DC 06/17/25 05:22 40 MG Glucagon (Glucagon 1mg Kit) 1 mg AD PRN IM HYPOGLYCEMIA PROTOCOL 06/17/25 14:30 07/17/25 14:29 Heparin Sodium (Porcine) (HEParin 5,000 UNIT VIAL) *calculation based on ACTUAL B... AD PRN IV HEPARIN PROTOCOL 06/09/25 04:00 06/15/25 14:01 DC Heparin Sodium/ Dextrose 250 ml @ 0 mls/hr Q6H IV 06/09/25 04:00 06/15/25 13:58 DC 06/15/25 02:42 4.7 MLS/HR Home Med (Home Medication) (Methimazole 5MG TAB) - 0.5 TAB... DAILY PO 06/10/25 09:00 07/10/25 08:59 06/16/25 08:23 1 EACH Insulin Human Regular (humuLIN R 100 UNIT/ML 3ML) INSULIN SLIDING SCAL... ACHS SQ 06/17/25 16:30 07/17/25 16:29 Lactulose (Constulose 20gm/ 30ml Udcup) 20 gm BID PRN PO CONSTIPATION 06/13/25 07:30 07/13/25 07:29 Latanoprost (Xalatan) 1 DROP HS OD 06/09/25 21:00 07/09/25 20:59 06/16/25 21:26 1 DROP Levofloxacin/ Dextrose 100 ml @ 100 mls/hr Q24H IV 06/09/25 20:00 06/08/25 22:40 DC Linezolid 300 ml @ 150 mls/hr Q12H IV 06/11/25 11:30 06/11/25 12:38 DC Linezolid 300 ml @ 150 mls/hr Q12H IV 06/11/25 14:30 06/21/25 14:29 06/17/25 15:09 150 MLS/HR Magnesium Sulfate 50 ml @ 0 mls/hr PROTOCOL PRN IV MAGNESIUM PROTOCOL 06/09/25 17:00 07/09/25 16:59 06/12/25 03:21 25 MLS/HR Methylprednisolone Sodium Succinate (Solu-medROL 40MG) 40 mg Q12H9 IVP 06/12/25 21:00 07/09/25 13:29 06/17/25 12:58 40 MG Methylprednisolone Sodium Succinate (Solu-medROL 40MG) 40 mg Q8H IVP 06/09/25 13:30 06/12/25 14:11 DC 06/12/25 13:23 40 MG Metoprolol Tartrate (loprESSOR) 2.5 mg Q6H PRN IV heart rate greater than 110 06/12/25 03:30 07/12/25 03:29 Metoprolol Tartrate (loprESSOR) 25 mg BID PO 06/12/25 21:00 06/17/25 12:12 DC 06/16/25 21:24 25 MG Metronidazole/ Sodium Chloride 100 ml @ 100 mls/hr Q8H6 IVPB 06/10/25 14:00 06/20/25 13:59 06/17/25 15:09 100 MLS/HR Midodrine (PROAMatine 5 MG TABLET) 5 mg TID PO 06/10/25 14:00 06/11/25 08:52 DC 06/10/25 20:08 5 MG Midodrine (PROAMatine 5 MG TABLET) 10 mg TID PO 06/11/25 09:00 06/15/25 13:58 DC 06/14/25 21:14 10 MG Nicotine (Nicoderm) 21 mg DAILY TD 06/08/25 23:00 07/08/25 22:59 06/17/25 12:58 21 MG Norepinephrine 250 ml @ 0 mls/hr PROTOCOL IV 06/09/25 01:00 07/09/25 00:59 06/17/25 05:41 27.7 MLS/HR Olanzapine (ZyPREXA 5 mg tab) 5 mg BID PO 06/10/25 21:00 06/17/25 12:13 DC 06/16/25 21:24 5 MG Ondansetron HCl (zoFRAN 4MG INJ) 4 mg Q6H PRN IV NAUSEA/VOMITING 06/08/25 20:30 07/08/25 20:29 Oseltamivir Phosphate (Tamiflu) 75 mg BID PO 06/09/25 21:00 06/10/25 09:08 DC 06/10/25 09:03 75 MG Pantoprazole Sodium (PROTonix 40MG INJ) 40 mg DAILY IVP 06/10/25 09:00 07/10/25 08:59 06/17/25 12:58 40 MG Pharmacy Profile Note (Pharmacy Communication) [address] [facility] 06/09/25 03:00 06/09/25 03:24 DC Pharmacy Profile Note (Pharmacy Communication) [address] [facility] 06/11/25 11:30 06/11/25 11:19 DC Pharmacy Profile Note (Pharmacy Communication) [address] [facility] 06/16/25 11:00 06/16/25 11:08 DC Pharmacy Profile Note (Pharmacy Communication) [address] [facility] 06/16/25 17:00 06/16/25 17:10 DC Phytonadione (Vitamin K 10mg/ 1ml Adult Vial) 10 mg DAILY SQ 06/11/25 09:00 06/13/25 15:00 DC 06/13/25 09:24 10 MG Phytonadione (Vitamin K 10mg/ 1ml Adult Vial) 10 mg Q24H SQ 06/10/25 15:00 06/10/25 16:55 DC 06/10/25 15:11 10 MG Piperacillin Sod/ Tazobactam Sod (Zosyn 3.375gm+NS 50ml) 3.375 gm Q8H IV 06/08/25 23:00 06/10/25 09:08 DC 06/10/25 07:10 3.375 GM Potassium Chloride 100 ml @ 50 mls/hr AD PRN IV POTASSIUM PROTOCOL 06/09/25 17:00 06/11/25 06:10 DC 06/09/25 21:18 50 MLS/HR Potassium Chloride 100 ml @ 100 mls/hr AD PRN IV POTASSIUM PROTOCOL 06/09/25 17:00 07/09/25 16:59 06/16/25 06:09 100 MLS/HR Potassium Chloride 100 ml @ 100 mls/hr AD PRN IV POTASSIUM PROTOCOL 06/16/25 12:00 1/2/26 11:59 Potassium Chloride (K-Dur/Klor-Con 20meq) 20 meq AD PRN PO POTASSIUM PROTOCOL 06/09/25 17:00 07/09/25 16:59 Potassium Chloride (KCl 10% Elixir 20meq/15ml) 20 meq AD PRN PO POTASSIUM PROTOCOL 06/09/25 17:00 07/09/25 16:59 Sevelamer HCl (RENAgel 800 MG TAB) 400 mg TIDMEALS PO 06/17/25 12:00 06/17/25 15:36 DC Sodium Bicarbonate 150 meq/Sodium Chloride 1,150 ml @ 100 mls/hr [id number] IVP 06/09/25 12:00 06/09/25 12:29 DC Sodium Bicarbonate (Sodium Bicarbonate) 650 mg BID PO 06/13/25 11:30 06/13/25 11:58 DC Sodium Bicarbonate (Sodium Bicarbonate) 1,300 mg BID PO 06/13/25 21:00 07/13/25 20:59 06/16/25 21:24 1,300 MG Vancomycin HCl 250 ml @ 125 mls/hr Q24H IV 06/11/25 10:00 06/11/25 11:15 DC 06/11/25 09:31 125 MLS/HR Vancomycin HCl (Vancomycin Protocol) 1 each AD IV 06/10/25 09:30 06/11/25 11:15 DC Ziprasidone (Geodon) 10 mg Q6H PRN IM AGITATION/PSYCHOSIS 06/09/25 18:00 06/17/25 12:13 DC 06/11/25 17:28 10 MG Diagnostics / Radiology: [COPY/PASTE HERE IF NO REPORTS PLEASE DELETE SECTION] Assessment: Abnormal LFTs Coagulopathy Thrombocytopenia Plan: MRCP once clinically able Trend LFTs [employer] Jun 17, 2025 16:56
--- NOTE | 2025-06-17 18:38 | NUR ---
1800: AT THIS TIME PATIENT IS ALERT AND ORIENTED X3 ABLE TO ANSWER SELF, DATE, AND LOCATION. BIPAP IS REMOVED AND PATIENT PLACED ON 3L NC O2 SAT 98%. NO VISIBLE DISTRESS FAMILY AT BEDSIDE.
--- NOTE | 2025-06-17 19:16 | PN ---
INFECTIOUS DISEASE PROGRESS NOTE Date of Service: Jun 17, 2025 SUBJECTIVE: Patient was seen at bedside in room 215. Patient remains on BiPAP and on Precedex. During rounding today patient is pending a CT of the head and brain and an MRI. The WBC trended up to 24.4 and the hemoglobin dropped to 8.9. Patient has been started on vasopressor support. Renal function continues to decline with a BUN of 82 and creatinine of 2.5. Continues on doxycycline, linezolid and cefepime. PHYSICAL EXAM EYES: Anicteric. Pupils equal and reactive. HENT: No oral thrush seen, moist Oral mucosa. NECK: Supple, no JVD or thyromegaly. LUNGS: Continuous BiPAP.. CARDIOVASCULAR: S1, S2 regular. No murmur heard. ABDOMEN: Soft, non tender, bowel sounds present. CENTRAL NERVOUS SYSTEM: On Precedex.. SKIN: No rashes, no swelling. LYMPHATICS: No peripheral lymphadenopathy. MUSCULOSKELETAL: No joint swelling, erythema or tenderness. EXTREMITIES: No cyanosis or clubbing. BACK: No deformity, no pressure ulcer. GENITOURINARY: No dysuria or hematuria. Gonzalez catheter. Vital Sign (Last 12 Hours) 06/17/25 06/17/25 06/17/25 06/17/25 07:15 07:30 07:45 08:00 Pulse 76 76 76 78 Resp 18 16 17 17 B/P (MAP) 112/41 (64) 111/36 (61) 113/42 (65) 114/36 (62) Pulse Ox 96 96 98 97 06/17/25 06/17/25 06/17/25 06/17/25 08:00 08:00 08:15 08:30 Temp 99.1 Pulse 92 79 Resp 17 17 B/P (MAP) 125/58 (80) 118/47 (70) Pulse Ox 99 97 97 O2 Delivery CPAP+ O2 Flow Rate 30 FiO2 60 06/17/25 06/17/25 06/17/25 06/17/25 08:45 09:00 09:15 09:17 Pulse 78 75 74 75 Resp 17 16 18 17 B/P (MAP) 112/43 (66) 103/40 (61) 99/40 (59) Pulse Ox 98 99 99 FiO2 60 06/17/25 06/17/25 06/17/25 06/17/25 09:30 09:45 10:00 10:15 Pulse 74 74 73 75 Resp 18 16 19 17 B/P (MAP) 86/38 (54) 85/35 (52) 89/34 (52) 94/37 (56) Pulse Ox 99 98 98 99 06/17/25 06/17/25 06/17/25 06/17/25 10:30 10:34 10:45 11:00 Pulse 75 75 84 83 Resp 21 16 27 30 B/P (MAP) 94/41 (58) 110/48 (68) 107/46 (66) Pulse Ox 99 100 100 06/17/25 06/17/25 06/17/25 06/17/25 11:15 11:30 11:45 11:52 Pulse 85 85 92 90 Resp 30 23 26 21 B/P (MAP) 95/67 (76) 109/45 (66) 127/48 (74) Pulse Ox 100 100 100 FiO2 60 06/17/25 06/17/25 06/17/25 06/17/25 12:00 12:00 12:15 12:30 Pulse 88 89 87 Resp 28 12 29 B/P (MAP) 112/49 (70) 116/45 (68) 110/38 (62) Pulse Ox 99 100 100 100 O2 Delivery CPAP+ O2 Flow Rate 30 FiO2 60 06/17/25 06/17/25 06/17/25 06/17/25 12:45 13:00 13:15 13:20 Pulse 83 82 78 Resp 19 16 17 B/P (MAP) 101/37 (58) 92/33 (52) 90/27 (48) Pulse Ox 100 100 100 FiO2 60 06/17/25 06/17/25 06/17/25 06/17/25 13:30 13:45 14:00 14:11 Pulse 78 78 91 77 Resp 18 19 31 23 B/P (MAP) 100/32 (54) 101/32 (55) 86/35 (52) Pulse Ox 100 100 100 FiO2 60 06/17/25 06/17/25 06/17/25 06/17/25 14:13 14:40 15:00 15:15 Pulse 77 82 91 83 Resp 23 17 17 17 B/P (MAP) 99/33 (55) 104/36 (58) 94/30 (51) Pulse Ox 100 99 100 1206/17/25 06/17/25 06/17/25 15:34 15:45 16:00 16:00 Temp 99.0 Pulse 77 77 Resp 19 19 B/P (MAP) 76/29 (45) 103/49 (67) Pulse Ox 100 99 100 O2 Delivery CPAP+ O2 Flow Rate 30 FiO2 60 06/17/25 06/17/25 06/17/25 06/17/25 16:15 16:30 16:45 16:51 Pulse 77 80 80 Resp 19 14 17 B/P (MAP) 113/45 (67) 124/41 (68) 120/39 (66) Pulse Ox 100 100 100 FiO2 40 06/17/25 06/17/25 06/17/25 06/17/25 17:00 17:15 17:30 17:45 Pulse 81 81 83 87 Resp 18 18 18 13 B/P (MAP) 122/42 (68) 118/43 (68) 118/58 (78) 130/82 (98) Pulse Ox 100 100 100 100 06/17/25 06/17/25 06/17/25 06/17/25 17:53 18:00 18:48 18:50 Pulse 88 88 86 87 Resp 14 14 23 12 B/P (MAP) 131/77 (95) 131/77 (95) Pulse Ox 97 97 O2 Delivery N/Cannula Low lpm O2 Flow Rate 3.0 FiO2 32 Intake & Output (last 24hrs) 06/16/25 06/16/25 06/17/25 15:00 23:00 07:00 Intake Total 630.6 ml 1229.0 ml Output Total 1200 ml 1400 ml Balance -569.4 ml -171.0 ml LABS: Laboratory: Test 06/17/25 16:21 06/17/25 16:08 06/17/25 12:34 06/17/25 09:38 Range/Units Blood Gas Specimen Type Arterial Arterial Blood pH 7.289 L 7.350-7.450 Arterial Blood Partial Pressure CO2 47 H 32-45 mmHg Arterial Blood Partial Pressure O2 224.7 H 83.0-108.0 mmHg Arterial Blood HCO3 22.2 21.0-28.0 mmol/L Arterial Blood Oxygen Saturation 99.2 H 94.0-98.0 % Arterial Blood Base Excess -4.3 L -2.0-3.0 mmol/L Hemoglobin (Blood Gas) 9.4 L 12.0-16.0 g/dL Sodium (Blood Gas) 139 136-145 MMOL/L Bedside Potassium (Blood Gas) 3.6 3.4-4.5 MMOL/L Bedside Chloride (Blood Gas) 106 98-107 MMOL/L Bedside Glucose (Blood Gas) 270 H 65-95 MG/DL Bedside Ionized Calcium (Blood Gas) 0.98 L 1.15-1.33 MMOL/L Bedside Lactic Acid (Blood Gas) 3.79 *H 0.36-0.75 MMOL/L Blood Gas Temperature 37.0 35.5-37.0 CELSIUS Blood Gas Respiration Rate 18.0 min. Blood Gas Vent Mode BIPAP 15.7 ROOM AIR FiO2 60.0 % Blood Gas Specimen Comment LR TYRONE Whole Blood Glucose 260 H 70-110 MG/DL Blood Gas CPAP 10 cm H2O Lactic Acid Level 3.3 H 0.8-2.5 mmol/L Procalcitonin 0.22 0.05-0.5 ng/mL Test 06/17/25 09:37 06/17/25 04:15 06/16/25 08:45 06/16/25 05:15 Range/Units B-Type Natriuretic Peptide 2010 H 0-100 pg/mL White Blood Count 24.4 #H 4.8-10.8 K/uL Red Blood Count 3.69 L 4.00-5.50 MIL/uL Hemoglobin 8.9 L 12.0-16.0 g/dL Hematocrit 28.1 L 36-48 % Mean Corpuscular Volume 76.2 L 79-99 fL Mean Corpuscular Hemoglobin 24.1 L 27.0-33.0 pg Mean Corpuscular Hemoglobin Concent 31.7 L 32.0-36.0 g/dL Red Cell Distribution Width 21.3 H 11.0-15.5 % Platelet Count 93 L 130-400 K/uL Mean Platelet Volume 7.5-10.5 fL Segmented Neutrophils % 99 H 40-70 % Monocytes % (Manual) 1 L 2-9 % Nucleated Red Blood Cells 3.0 H 0.0-0.19 % Differential Comment MANUAL DIFFERENTIAL White Cell Morphology Comment Platelet Morphology Comment See comments Red Blood Cell Morphology See comments Sodium Level 141 136-145 mmol/L Potassium Level 3.6 3.5-5.1 mmol/L Chloride Level 103 101-111 mmol/L Carbon Dioxide Level 23 21-32 mmol/L Blood Urea Nitrogen 82 *H 7-18 mg/dL Creatinine 2.5 H 0.5-1.0 mg/dL Glomerular Filtration Rate Calc 20 >90 mL/min Random Glucose 216 H 70-105 mg/dL Total Calcium 7.2 L 8.5-10.1 mg/dL Phosphorus Level 6.3 H 2.5-4.9 mg/dL Magnesium Level 2.20 1.80-2.40 mg/dL Total Bilirubin 7.3 #H 0.2-1.0 mg/dL Aspartate Amino Transf (AST/SGOT) 90 H 10-37 U/L Alanine Aminotransferase (ALT/SGPT) 249 H 12-78 U/L Alkaline Phosphatase 97 50-136 U/L Total Protein 5.2 L 6.0-8.3 g/dL Albumin 2.1 L 3.5-5.0 g/dL C-Reactive Protein, Quantitative 21.70 H 0.5-3.0 mg/L Immature Granulocyte % (Auto) 1.6 H 0-1 % Neutrophils (%) (Auto) 93.0 H 40.0-77.0 % Lymphocytes (%) (Auto) 0.2 L 21.0-51.0 % Monocytes (%) (Auto) 5.1 3.0-13.0 % Eosinophils (%) (Auto) 0.0 0.0-8.0 % Basophils (%) (Auto) 0.1 0.0-5.0 % Neutrophils # (Auto) 15.0 H 1.8-7.7 K/uL Lymphocytes # (Auto) 0.0 L 1.0-4.8 K/uL Monocytes # (Auto) 0.8 0.1-1.0 K/uL Eosinophils # (Auto) 0.00 0.00-0.70 K/uL Basophils # (Auto) 0.01 0.00-0.20 K/uL Absolute Immature Granulocyte (auto 0.26 0-1 K/uL ASSESSMENT: Hypoxic respiratory failure, requiring BiPAP support. Multifocal pneumonia. Aortic valve Endocarditis. Sepsis. Gemella Morbillorum bacteremia. Acute renal failure. Multifactorial encephalopathy, improving. Chronic obstructive pulmonary disease exacerbation. Chronic tobacco use. Atrial fibrillation. PLAN: Continue cefepime. Continue doxycycline. Continue linezolid IV. Currently on vasopressor support. Continue GI prophylaxis. Continue bronchodilators. Continue BiPAP support. Monitor renal function. Pending CT of the head and brain. This case was reviewed and discussed with my supervising physician Dr. Liang and the above assessment and plan was formulated and agreed upon. ATTESTATION BY PHYSICIAN I have seen and examined the patient. I reviewed the documentation, medical decision making, and treatment plan as noted by the mid-level provider above. I agree with the findings and plan of care. RIKY LIANG MD, [facility] Jun 17, 2025 19:16
--- NOTE | 2025-06-17 20:00 | NUR ---
Dr DARDEN AT BEDSIDE EVALUATING PATIENT DUE TO CONSULT. DISCUSSED CT RESULTS AND SUDDEN CHANGE IN PATIENTS CONDITION. PATIENT IS NOW ALERT AND ORIENTED X4 ABLE TO VERBALIZE NAME , MONTH, KNOWS SHES IN HOSPITAL. PER DR DARDEN, HIS RECOMMENDATIONS ARE IF PATIENT CONTINUES GETTING BETTER AND IS NOT AMS THEN NO NEED FOR LUMBAR PUNCTURE.
--- NOTE | 2025-06-17 20:28 | CONS ---
CONSULTATION NOTE Date of Service: Jun 17, 2025 Reason for Consultation: AMS Requesting Physician: hospitalist HISTORY OF PRESENT ILLNESS: Ms. Jang is a 69-year-old female with a past medical history of emphysema, atrial fibrillation, and hyperthyroidism who was admitted on June 08 and consulted for altered mental status approximately one week after admission. She initially presented with 3 weeks of generalized weakness and was diagnosed with acute congestive heart failure exacerbation and COPD exacerbation, for which she was treated with prednisone. During her hospitalization, she developed aortic insufficiency due to multiple vegetations and was diagnosed with endocarditis, requiring treatment with cefepime, vancomycin, and doxycycline. She also requir ed norepinephrine drip support. The patient experienced significant altered mental status during her hospitalization, described as being "out of place," constantly screaming, and very confused. However, at the time of this consultation, her mental status had markedly improved - she was able to follow commands and accurately state her location. She denied having any headaches or neck stiffness when questioned directly. Medical History - Emphysema - Atrial fibrillation - Hyperthyroidism - Aortic insufficiency - Endocarditis with multiple aortic valve vegetations - Chronic right occipital temporal embolic stroke - Acute congestive heart failure exacerbation - COPD exacerbation Medications and Supplements - Prednisone - Norepinephrine drip - Cefepime - Vancomycin - Doxycycline - Levo (levophed/norepinephrine) - Attempts to wean cause blood pressure to drop Social History - Substance Use: Current smoker, one pack per day REVIEW OF SYSTEMS CONSTITUTIONAL: Denies fever, chills, or fatigue. HEAD/FACE: No signs of trauma. EENT: Denies eye pain, blurred vision, double vision, or light sensitivity. RESPIRATORY: Denies shortness of breath, cough, wheezing CARDIOVASCULAR: Denies chest pain, palpitation, syncope GASTROINTESTINAL/ABDOMINAL: Denies abdominal pain, constipation, diarrhea, nausea or vomiting GENITOURINARY: Denies dysuria or hematuria. MUSCULOSKELETAL: Denies joint pain, tenderness, or trauma. INTEGUMENTARY: Denies rash or itchiness NEUROLOGICAL/PSYCH: Denies anxiety, depression, heat or cold intolerance. PAST MEDICAL HISTORY: as above PAST SURGICAL HISTORY: as above PAST SOCIAL HISTORY: none FAMILY HISTORY: unremarkable Coded Allergies: No Known Drug Allergies (Unverified Allergy, Unknown, 06/08/25) PHYSICAL EXAM EYES: Anicteric. Pupils equal and reactive. HENT: No oral thrush seen, moist Oral mucosa NECK: Supple, no JVD or thyromegaly. LUNGS: Good air entry. No rales, no rhonchi. CARDIOVASCULAR: S1, S2 regular. No murmur heard. ABDOMEN: Soft, non tender, bowel sounds present, no organomegaly CENTRAL NERVOUS SYSTEM: Awake, alert, oriented x 3. No focal deficits. SKIN: No rashes, no swelling. LYMPHATICS: No peripheral lymphadenopathy MUSCULOSKELETAL: No joint swelling, erythema or tenderness. EXTREMITIES: No cyanosis or clubbing BACK: No deformity, no pressure ulcer. GENITOURINARY: No dysuria or hematuria Vital Sign (Last 24 Hours) 06/17/25 06/17/25 06/17/25 18:00 18:50 20:00 Temp 97.7 Pulse 87 Resp 12 B/P (MAP) 131/77 (95) Pulse Ox 97 O2 Delivery N/Cannula Low lpm O2 Flow Rate 3.0 FiO2 32 Intake & Output (last 24hrs) 06/16/25 06/16/25 06/17/25 15:00 23:00 07:00 Intake Total 630.6 ml 1229.0 ml Output Total 1200 ml 1400 ml Balance -569.4 ml -171.0 ml LABS: Laboratory: Test 06/17/25 16:21 06/17/25 16:08 06/17/25 12:34 06/17/25 09:38 Range/Units Blood Gas Specimen Type Arterial Arterial Blood pH 7.289 L 7.350-7.450 Arterial Blood Partial Pressure CO2 47 H 32-45 mmHg Arterial Blood Partial Pressure O2 224.7 H 83.0-108.0 mmHg Arterial Blood HCO3 22.2 21.0-28.0 mmol/L Arterial Blood Oxygen Saturation 99.2 H 94.0-98.0 % Arterial Blood Base Excess -4.3 L -2.0-3.0 mmol/L Hemoglobin (Blood Gas) 9.4 L 12.0-16.0 g/dL Sodium (Blood Gas) 139 136-145 MMOL/L Bedside Potassium (Blood Gas) 3.6 3.4-4.5 MMOL/L Bedside Chloride (Blood Gas) 106 98-107 MMOL/L Bedside Glucose (Blood Gas) 270 H 65-95 MG/DL Bedside Ionized Calcium (Blood Gas) 0.98 L 1.15-1.33 MMOL/L Bedside Lactic Acid (Blood Gas) 3.79 *H 0.36-0.75 MMOL/L Blood Gas Temperature 37.0 35.5-37.0 CELSIUS Blood Gas Respiration Rate 18.0 min. Blood Gas Vent Mode BIPAP 15.7 ROOM AIR FiO2 60.0 % Blood Gas Specimen Comment MOLLY HANSEN Whole Blood Glucose 260 H 70-110 MG/DL Blood Gas CPAP 10 cm H2O Lactic Acid Level 3.3 H 0.8-2.5 mmol/L Procalcitonin 0.22 0.05-0.5 ng/mL Test 06/17/25 09:37 06/17/25 04:15 06/16/25 08:45 06/16/25 05:15 Range/Units B-Type Natriuretic Peptide 2010 H 0-100 pg/mL White Blood Count 24.4 #H 4.8-10.8 K/uL Red Blood Count 3.69 L 4.00-5.50 MIL/uL Hemoglobin 8.9 L 12.0-16.0 g/dL Hematocrit 28.1 L 36-48 % Mean Corpuscular Volume 76.2 L 79-99 fL Mean Corpuscular Hemoglobin 24.1 L 27.0-33.0 pg Mean Corpuscular Hemoglobin Concent 31.7 L 32.0-36.0 g/dL Red Cell Distribution Width 21.3 H 11.0-15.5 % Platelet Count 93 L 130-400 K/uL Mean Platelet Volume 7.5-10.5 fL Segmented Neutrophils % 99 H 40-70 % Monocytes % (Manual) 1 L 2-9 % Nucleated Red Blood Cells 3.0 H 0.0-0.19 % Differential Comment MANUAL DIFFERENTIAL White Cell Morphology Comment Platelet Morphology Comment See comments Red Blood Cell Morphology See comments Sodium Level 141 136-145 mmol/L Potassium Level 3.6 3.5-5.1 mmol/L Chloride Level 103 101-111 mmol/L Carbon Dioxide Level 23 21-32 mmol/L Blood Urea Nitrogen 82 *H 7-18 mg/dL Creatinine 2.5 H 0.5-1.0 mg/dL Glomerular Filtration Rate Calc 20 >90 mL/min Random Glucose 216 H 70-105 mg/dL Total Calcium 7.2 L 8.5-10.1 mg/dL Phosphorus Level 6.3 H 2.5-4.9 mg/dL Magnesium Level 2.20 1.80-2.40 mg/dL Total Bilirubin 7.3 #H 0.2-1.0 mg/dL Aspartate Amino Transf (AST/SGOT) 90 H 10-37 U/L Alanine Aminotransferase (ALT/SGPT) 249 H 12-78 U/L Alkaline Phosphatase 97 50-136 U/L Total Protein 5.2 L 6.0-8.3 g/dL Albumin 2.1 L 3.5-5.0 g/dL C-Reactive Protein, Quantitative 21.70 H 0.5-3.0 mg/L Immature Granulocyte % (Auto) 1.6 H 0-1 % Neutrophils (%) (Auto) 93.0 H 40.0-77.0 % Lymphocytes (%) (Auto) 0.2 L 21.0-51.0 % Monocytes (%) (Auto) 5.1 3.0-13.0 % Eosinophils (%) (Auto) 0.0 0.0-8.0 % Basophils (%) (Auto) 0.1 0.0-5.0 % Neutrophils # (Auto) 15.0 H 1.8-7.7 K/uL Lymphocytes # (Auto) 0.0 L 1.0-4.8 K/uL Monocytes # (Auto) 0.8 0.1-1.0 K/uL Eosinophils # (Auto) 0.00 0.00-0.70 K/uL Basophils # (Auto) 0.01 0.00-0.20 K/uL Absolute Immature Granulocyte (auto 0.26 0-1 K/uL DIAGNOSTICS / RADIOLOGY: [ ] ASSESSMENT / PLAN: Ms. Jang is a 69-year-old female with a history of emphysema, atrial fibrillation, and hyperthyroidism presenting with altered mental status in the setting of endocarditis with aortic valve vegetations and chronic right occipital-temporal embolic stroke. Acute encephalopathy Assessment: Patient was consulted for altered mental status occurring one week after admission. Initially presented as very confused and agitated, but has shown marked improvement during current evaluation. Patient is now alert, oriented, following commands appropriately, and denying headaches or neck stiffness. Physical examination reveals no neck stiffness and pupils appear equal. Given the presence of endocarditis with vegetations, there is concern for possible [employer] involvement including encephalitis. However, current clinical im provement suggests less likelihood of active [employer] infection. Plan: - Consider canceling lumbar puncture if patient continues to show clinical improvement given current alert and oriented status - MRI planned for tomorrow Endocarditis with aortic valve vegetations Assessment: Patient diagnosed with endocarditis with multiple aortic valve vegetations causing aortic insufficiency. Currently receiving appropriate antibiotic therapy. Plan: - Continue cefepime, vancomycin, and doxycycline Chronic right occipital-temporal embolic stroke Assessment: CT imaging demonstrates chronic right occipital-temporal embolic stroke, likely related to endocarditis with septic emboli. Recent CT scan performed due to pupil inequality concern was negative for acute stroke, confirming chronic nature of findings. Plan: - No acute intervention required for chronic stroke Thank you for your consultation. I will sign off. DOUG MEJIA MD Jun 17, 2025 20:28
[2025-06-17] MEDS: CLINIMIX-E 5%AA /D15%W 2000ML 2,000 ML IV ONE (22:16)
[2025-06-18] VITALS (90 sets, daily range): BP systolic 105–144; BP diastolic 35–87; PULSE 70–102; RESP 4–29; TEMP 97–99; O2SAT 94–100
[2025-06-18 05:24] LABS: IMMATURE GRANULOCYTE ABSOLUTE 0.16 K/uL (0-1); NUCLEATED RED BLOOD CELLS 0.7 % (0.0-0.19); PLATELET COUNT (AUTO) 62 K/uL (130-400); RED BLOOD CELL COUNT(AUTO) 3.47 MIL/uL (4.00-5.50); RED CELL DISTRIBUTION WIDTH 20.4 % (11.0-15.5); WHITE BLOOD COUNT (AUTO) 19.0 K/uL (4.8-10.8)
[2025-06-18 05:37] LABS: INR 1.78 (0.85-1.15)
[2025-06-18 05:59] LABS: ASPARTATE AMINOTRANSFERASE 64.0 U/L (10-37); CREATININE 2.4 mg/dL (0.5-1.0); GLOMERULAR FILTR. RATE CALC 21.0 mL/min (>90); GLUCOSE,RANDOM 296.0 mg/dL (70-105); PHOSPHORUS 4.7 mg/dL (2.5-4.9); SODIUM SERUM 140.0 mmol/L (136-145); TOTAL PROTEIN, SERUM 4.5 g/dL (6.0-8.3)
[2025-06-18 06:01] LABS: UREA NITROGEN, BLOOD 86.0 mg/dL (7-18)
--- NOTE | 2025-06-18 06:05 | NUR ---
RN SPOKE TO MARLENEI, SCALE ATTENDANT FOR BENCHMARK IN REGARD TO CRITICAL LACTIC ACID RESULT. INCREASE FROM 3.3 TO A 4.9. DISCUSSED LABS AND ANTIBIOTICS. NO NEW ORDERS. RN ALSO CLARIFIED GIVING POTASSIUM OF TOTAL OF 20MEQ ORDERED IN PROTOCOL FOR POTASSIUM LEVEL OF 3.0. RN PROVIDED CURRENT CREATININE LEVEL AND BUN LEVEL. PER NABI, GIVE THE 20 MEQ TOTAL
--- NOTE | 2025-06-18 09:12 | PN ---
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 She continues to require supplemental oxygen and BiPAP at night. Pending ERCP scan and VICK, patient unable to tolerate positioning She remains on Lasix, 40 mg IV [id number], Urine output was noted She continues on antibiotics as per ID She has had acute on chronic renal failure while in the hospital. Creatinine has been elevated in the patient is being seen as a follow up visit for all the above She continues on TPN Hyponatremia has improved, she has been encouraged with fluid restriction Renal function remains elevated Electrolytes are noted She was seen in the ICU Family at the bedside Prognosis remains guarded REVIEW OF SYSTEMS: GENERAL: Positive for shortness of breath NEUROLOGIC: Negative for any blurry vision, blind spots, double vision, facial asymmetry, dysphagia, dysarthria, hemiparesis, hemisensory deficits, vertigo, ataxia. HEENT: Negative for any head trauma, neck trauma, neck stiffness, photophobia, phonophobia, sinusitis, rhinitis. CARDIAC: Negative for any chest pain, dyspnea on exertion, paroxysmal nocturnal dyspnea, peripheral edema. PULMONARY: Negative for any shortness of breath, wheezing, COPD, or TB exposure. GASTROINTESTINAL: Negative for any abdominal pain, nausea, vomiting, bright red blood per rectum, melena. GENITOURINARY: Negative for any dysuria, hematuria, incontinence. INTEGUMENTARY: Negative for any rashes, cuts, insect bites. RHEUMATOLOGIC: Negative for any joint pains, photosensitive rashes, history of vasculitis or kidney problems. HEMATOLOGIC: Negative for any abnormal bruising, frequent infections or bleeding. Vital Signs (last 8hr) Date Time Temp Pulse Resp B/P (MAP) Pulse Ox O2 Delivery O2 Flow Rate FiO2 06/18/25 07:05 73 16 HFNC Heated System N/Can 20.0 40 06/18/25 07:00 73 16 120/48 (72) 99 06/18/25 06:45 70 15 121/58 (79) 100 06/18/25 06:43 71 22 06/18/25 06:40 71 22 40 06/18/25 06:30 71 4 116/41 (66) 100 06/18/25 06:15 73 18 118/43 (68) 98 06/18/25 06:00 72 18 127/52 (77) 100 06/18/25 05:45 75 18 122/44 (70) 100 06/18/25 05:30 75 18 112/52 (72) 98 06/18/25 05:15 72 123/40 (67) 100 06/18/25 05:00 71 15 119/56 (77) 99 06/18/25 04:45 73 17 123/43 (69) 100 06/18/25 04:30 78 18 118/45 (69) 100 06/18/25 04:15 72 19 118/55 (76) 100 06/18/25 04:04 97.5 06/18/25 04:00 75 15 121/44 (69) 100 06/18/25 04:00 99 CPAP+ 30 60 06/18/25 03:45 74 17 113/45 (67) 100 06/18/25 03:30 77 14 128/40 (69) 100 06/18/25 03:15 76 12 122/49 (73) 100 06/18/25 03:00 76 12 122/49 (73) 100 06/18/25 02:45 76 15 117/51 (73) 100 06/18/25 02:30 73 19 121/51 (74) 99 06/18/25 02:27 75 20 40 06/18/25 02:27 75 23 06/18/25 02:15 76 18 119/48 (71) 100 06/18/25 02:00 74 19 121/55 (77) 100 06/18/25 01:45 75 12 123/52 (75) 100 06/18/25 01:30 75 13 122/47 (72) 100 06/18/25 01:15 75 17 118/50 (72) 100 PHYSICAL EXAM: GENERAL: Alert and oriented x 3. No acute distress. Well-nourished. EYES: EOMI. Anicteric. HENT: Moist mucous membranes. No scleral icterus. No cervical lymphadenopathy. LUNGS: Clear to auscultation bilaterally. No accessory muscle use. CARDIOVASCULAR: Regular rate and rhythm. No murmur. No JVD. ABDOMEN: Soft, non-tender and non-distended. No palpable masses. EXTREMITIES: No edema. Non-tender. SKIN: No rashes or lesions. Warm. NEUROLOGIC: No focal neurological deficits. CN II-XII grossly intact, but not individually tested. PSYCHIATRIC: Cooperative. Appropriate mood and affect. Current Medications Medications (Trade) Dose Ordered Sig/Rossy Route Start Time Stop Time Status Last Admin Dose Admin Albuterol (DUOneb) 1 udvial [id number] 06/08/25 22:00 07/08/25 21:59 06/18/25 06:38 1 UDVIAL Amiodarone HCl (pacERONE 200MG) 200 mg BID PO 06/13/25 21:00 07/13/25 20:59 06/17/25 21:39 200 MG Amiodarone HCl 540 mg/Dextrose 300 ml @ 16.667 mls/ hr PROTOCOL IV 06/12/25 10:00 06/13/25 03:59 TN 06/12/25 11:33 16.667 MLS/HR Amiodarone HCL/ Dextrose 100 ml @ 600 mls/hr PROTOCOL IV 06/12/25 05:00 06/12/25 06:53 DC 06/12/25 05:10 600 MLS/HR Amiodarone HCL/ Dextrose 100 ml @ 0 mls/hr PROTOCOL IV 06/12/25 07:00 06/12/25 07:01 DC Amiodarone HCL/ Dextrose 200 ml @ 33.333 mls/ hr PROTOCOL IV 06/12/25 05:00 06/12/25 06:53 TN 06/12/25 05:11 33.333 MLS/HR Budesonide (Pulmicort 0.5 Mg/2ml) 0.5 mg BIDRESP 06/09/25 18:00 07/09/25 17:59 06/18/25 06:38 0.5 MG Cefepime HCl (MAXipime 1 GM vial) 1 gm Q12H IVPB 06/10/25 14:00 06/10/25 14:35 TN 06/10/25 14:23 1 GM Cefepime HCl (MAXipime 1 GM vial) 1 gm Q12H9 IVPB 06/10/25 21:00 06/24/25 13:59 06/17/25 21:38 1 GM Cefepime HCl (MAXipime 1 GM vial) 1 gm Q8H IVPB 06/10/25 09:30 06/10/25 09:41 DC Dexmedetomidine/ Sodium Chloride (PRECEdex 200MCG/ 50ML-NS) 200 mcg PROTOCOL IV 06/16/25 11:30 07/16/25 11:29 06/18/25 05:50 200 MCG Dexmedetomidine/ Sodium Chloride (PRECEdex 400MCG/ 100ML-NS) 400 mcg PROTOCOL IV 06/08/25 20:00 06/11/25 17:00 DC 06/11/25 09:27 400 MCG Dorzolamide/ Timolol (Cosopt Eye Drops) 1 DROP BID OP 06/09/25 21:00 07/09/25 20:59 06/17/25 21:41 1 ML Doxycycline Hyclate 250 ml @ 125 mls/hr Q12H IV 06/08/25 23:00 06/18/25 22:59 06/17/25 21:38 125 MLS/HR Enoxaparin Sodium (Lovenox (Pharmacy To Dose)) 1 unit Q24H SQ 06/15/25 14:00 06/15/25 14:01 DC Enoxaparin Sodium (Lovenox 80mg) 70 mg Q24H SQ 06/15/25 14:30 06/17/25 12:11 DC 06/16/25 14:39 70 MG Famotidine (Pepcid 20mg Vial) 20 mg DAILY IV 06/09/25 09:00 06/09/25 13:09 DC 06/09/25 08:39 20 MG Fluticasone Propionate (FLOnase 50 mcg/ spray 16g bottle) 1 SPRAY DAILY EN 06/12/25 15:00 07/12/25 14:59 06/16/25 08:23 1 SPRAYS Furosemide (LASix 20MG VIAL) 20 mg BID IVP 06/12/25 09:00 06/12/25 09:19 DC 06/12/25 08:57 20 MG Furosemide (LASix 40MG VIAL) 20 mg BID IVP 06/11/25 21:00 06/12/25 06:54 DC 06/11/25 21:26 20 MG Furosemide (LASix 40MG VIAL) 40 mg BID IVP 06/08/25 21:00 06/11/25 17:00 DC 06/11/25 09:32 40 MG Furosemide (LASix 40MG VIAL) 40 mg BID IVP 06/12/25 21:00 06/14/25 13:19 DC 06/14/25 08:24 40 MG Furosemide (LASix 40MG VIAL) 40 mg Q8H6 IVP 06/14/25 14:00 06/17/25 12:12 DC 06/17/25 05:22 40 MG Heparin Sodium/ Dextrose 250 ml @ 0 mls/hr Q6H IV 06/09/25 04:00 06/15/25 13:58 DC 06/15/25 02:42 4.7 MLS/HR Home Med (Home Medication) (Methimazole 5MG TAB) - 0.5 TAB... DAILY PO 06/10/25 09:00 07/10/25 08:59 06/16/25 08:23 1 EACH Insulin Human Regular (humuLIN R 100 UNIT/ML 3ML) INSULIN SLIDING SCAL... ACHS SQ 06/17/25 16:30 07/17/25 16:29 06/18/25 08:53 6 UNIT Latanoprost (Xalatan) 1 DROP HS OD 06/09/25 21:00 07/09/25 20:59 06/17/25 22:15 2.5 DROP Levofloxacin/ Dextrose 100 ml @ 100 mls/hr Q24H IV 06/09/25 20:00 06/08/25 22:40 DC Linezolid 300 ml @ 150 mls/hr Q12H IV 06/11/25 11:30 06/11/25 12:38 DC Linezolid 300 ml @ 150 mls/hr Q12H IV 06/11/25 14:30 06/21/25 14:29 06/18/25 02:07 150 MLS/HR Methylprednisolone Sodium Succinate (Solu-medROL 40MG) 40 mg Q12H9 IVP 06/12/25 21:00 07/09/25 13:29 06/17/25 21:38 40 MG Methylprednisolone Sodium Succinate (Solu-medROL 40MG) 40 mg Q8H IVP 06/09/25 13:30 06/12/25 14:11 DC 06/12/25 13:23 40 MG Metoprolol Tartrate (loprESSOR) 25 mg BID PO 06/12/25 21:00 06/17/25 12:12 DC 06/16/25 21:24 25 MG Metronidazole/ Sodium Chloride 100 ml @ 100 mls/hr Q8H6 IVPB 06/10/25 14:00 06/20/25 13:59 06/18/25 05:50 100 MLS/HR Midodrine (PROAMatine 5 MG TABLET) 5 mg TID PO 06/10/25 14:00 06/11/25 08:52 DC 06/10/25 20:08 5 MG Midodrine (PROAMatine 5 MG TABLET) 10 mg TID PO 06/11/25 09:00 06/15/25 13:58 DC 06/14/25 21:14 10 MG Nicotine (Nicoderm) 21 mg DAILY TD 06/08/25 23:00 07/08/25 22:59 06/17/25 12:58 21 MG Norepinephrine 250 ml @ 0 mls/hr PROTOCOL IV 06/09/25 01:00 07/09/25 00:59 06/17/25 05:41 27.7 MLS/HR Olanzapine (ZyPREXA 5 mg tab) 5 mg BID PO 06/10/25 21:00 06/17/25 12:13 DC 06/16/25 21:24 5 MG Oseltamivir Phosphate (Tamiflu) 75 mg BID PO 06/09/25 21:00 06/10/25 09:08 DC 06/10/25 09:03 75 MG Pantoprazole Sodium (PROTonix 40MG INJ) 40 mg DAILY IVP 06/10/25 09:00 07/10/25 08:59 06/17/25 12:58 40 MG Pharmacy Profile Note (Pharmacy Communication) 1 each ONCE MISC 06/09/25 03:00 06/09/25 03:24 DC Pharmacy Profile Note (Pharmacy Communication) 1 each ONCE MISC 06/11/25 11:30 06/11/25 11:19 DC Pharmacy Profile Note (Pharmacy Communication) 1 each ONCE MISC 06/16/25 11:00 06/16/25 11:08 DC Pharmacy Profile Note (Pharmacy Communication) 1 each ONCE MISC 06/16/25 17:00 06/16/25 17:10 DC Phytonadione (Vitamin K 10mg/ 1ml Adult Vial) 10 mg DAILY SQ 06/11/25 09:00 06/13/25 15:00 DC 06/13/25 09:24 10 MG Phytonadione (Vitamin K 10mg/ 1ml Adult Vial) 10 mg Q24H SQ 06/10/25 15:00 06/10/25 16:55 DC 06/10/25 15:11 10 MG Piperacillin Sod/ Tazobactam Sod (Zosyn 3.375gm+NS 50ml) 3.375 gm Q8H IV 06/08/25 23:00 06/10/25 09:08 DC 06/10/25 07:10 3.375 GM Sevelamer HCl (RENAgel 800 MG TAB) 400 mg TIDMEALS PO 06/17/25 12:00 06/17/25 15:36 DC Sodium Bicarbonate 150 meq/Sodium Chloride 1,150 ml @ 100 mls/hr [id number] IVP 06/09/25 12:00 06/09/25 12:29 DC Sodium Bicarbonate (Sodium Bicarbonate) 650 mg BID PO 06/13/25 11:30 06/13/25 11:58 DC Sodium Bicarbonate (Sodium Bicarbonate) 1,300 mg BID PO 06/13/25 21:00 07/13/25 20:59 06/17/25 21:39 1,300 MG Vancomycin HCl 250 ml @ 125 mls/hr Q24H IV 06/11/25 10:00 06/11/25 11:15 DC 06/11/25 09:31 125 MLS/HR Vancomycin HCl (Vancomycin Protocol) 1 each AD IV 06/10/25 09:30 06/11/25 11:15 DC LABORATORY: [ ] Hematology Labs: Test 06/18/25 05:15 06/17/25 04:15 Range/Units White Blood Count 19.0 H 4.8-10.8 K/uL Red Blood Count 3.47 L 4.00-5.50 MIL/uL Hemoglobin 8.4 L 12.0-16.0 g/dL Hematocrit 25.5 L 36-48 % Mean Corpuscular Volume 73.5 L 79-99 fL Mean Corpuscular Hemoglobin 24.2 L 27.0-33.0 pg Mean Corpuscular Hemoglobin Concent 32.9 32.0-36.0 g/dL Red Cell Distribution Width 20.4 H 11.0-15.5 % Platelet Count 62 #L 130-400 K/uL Mean Platelet Volume 7.5-10.5 fL Immature Granulocyte % (Auto) 0.8 0-1 % Neutrophils (%) (Auto) 94.3 H 40.0-77.0 % Lymphocytes (%) (Auto) 1.8 L 21.0-51.0 % Monocytes (%) (Auto) 3.0 3.0-13.0 % Eosinophils (%) (Auto) 0.0 0.0-8.0 % Basophils (%) (Auto) 0.1 0.0-5.0 % Neutrophils # (Auto) 17.9 H 1.8-7.7 K/uL Lymphocytes # (Auto) 0.4 L 1.0-4.8 K/uL Monocytes # (Auto) 0.6 0.1-1.0 K/uL Eosinophils # (Auto) 0.00 0.00-0.70 K/uL Basophils # (Auto) 0.02 0.00-0.20 K/uL Absolute Immature Granulocyte (auto 0.16 0-1 K/uL Nucleated Red Blood Cells 0.7 H 0.0-0.19 % Segmented Neutrophils % 99 H 40-70 % Monocytes % (Manual) 1 L 2-9 % Differential Comment MANUAL DIFFERENTIAL White Cell Morphology Comment Platelet Morphology Comment See comments Red Blood Cell Morphology See comments Chemistry Labs: Test 06/18/25 08:38 06/18/25 05:15 06/17/25 09:38 06/17/25 09:37 Range/Units Whole Blood Glucose 298 H 70-110 MG/DL Sodium Level 140 136-145 mmol/L Potassium Level 3.0 *L 3.5-5.1 mmol/L Chloride Level 103 101-111 mmol/L Carbon Dioxide Level 23 21-32 mmol/L Blood Urea Nitrogen 86 *H 7-18 mg/dL Creatinine 2.4 H 0.5-1.0 mg/dL Glomerular Filtration Rate Calc 21 >90 mL/min Random Glucose 296 H 70-105 mg/dL Lactic Acid Level 4.9 H 0.8-2.5 mmol/L Total Calcium 6.8 L 8.5-10.1 mg/dL Phosphorus Level 4.7 2.5-4.9 mg/dL Magnesium Level 2.00 1.80-2.40 mg/dL Total Bilirubin 7.9 H 0.2-1.0 mg/dL Aspartate Amino Transf (AST/SGOT) 64 H 10-37 U/L Alanine Aminotransferase (ALT/SGPT) 181 H 12-78 U/L Alkaline Phosphatase 97 50-136 U/L Total Protein 4.5 L 6.0-8.3 g/dL Albumin 1.9 L 3.5-5.0 g/dL Procalcitonin 0.22 0.05-0.5 ng/mL B-Type Natriuretic Peptide 2010 H 0-100 pg/mL Coagulation Labs: Test 06/18/25 05:15 Range/Units Prothrombin Time 17.8 H 9.6-11.6 SEC Prothromb Time International Ratio 1.78 H 0.85-1.15 Activated Partial Thromboplast Time 41.9 H 26.3-35.5 SEC DIAGNOSTICS / RADIOLOGY: [address] [address] IMAGING REPORT Signed PATIENT: HUGO WYLIE MR#: [id number] : 1955 SEX: F AGE: 69 LOCATION: [facility] ORDER 07 STATUS: ADM IN REPORT#: [id number] SERVICE 06 REASON: encephalopathy ORDERING PHYSICIAN: VY FOOTE MD PROCEDURE: HEAD WO - CT HEAD/BRAIN W/O CONTRAST EXAM: CT SCAN OF THE BRAIN WITHOUT CONTRAST CLINICAL HISTORY: Encephalopathy. TECHNIQUE: Axial computed tomography images of the head and brain were obtained without intravenous contrast. Coronal and sagittal reformatted images were obtained. Radiation dose reduction was achieved using ALARA (as low as reasonably achievable) principles including automatic exposure control, adjustment of mA and/or kV according to patient size and weight, and the use of iterative reconstruction techniques. RADIATION DOSE: CTDIvol 40.80 mGy; DLP 861.60 mGycm. CONTRAST: No intravenous contrast administered. COMPARISON: None provided. FINDINGS: Brain parenchyma: Focal area of encephalomalacia is present in the right occipitaltemporal region with associated volume loss. No acute intraparenchymal hemorrhage, mass, or mass effect is identified. White matter: Scattered hypodense foci in the bilateral periventricular and subcortical white matter are most compatible with chronic small vessel ischemic change. Graywhite matter differentiation is preserved. Ventricles and cisterns: Mild prominence of the ventricular system, sulcal spaces, basal cisterns, and sylvian fissures, in keeping with age-related cerebral volume loss. Mild ex vacuo dilatation of the occipital horn of the right lateral ventricle adjacent to the area of encephalomalacia. No hydrocephalus or midline shift is seen. Extra-axial spaces: Extra-axial spaces are mildly prominent, consistent with generalized cerebral atrophy. No acute extra-axial fluid collection or hemorrhage is demonstrated. Posterior fossa: Brainstem and cerebellum are unremarkable without focal abnormality. Sellar/parasellar region: Pituitary gland, optic chiasm, and pineal region appear unremarkable. CP angles and IACs: Cerebellopontine angle cisterns and internal auditory canals are clear and unremarkable. Skull and sinuses: Calvarium and skull base demonstrate normal bone density without acute fracture or destructive osseous lesion. The visualized paranasal sinuses are clear. IMPRESSION: * No CT evidence of acute intracranial hemorrhage, mass effect, or acute territorial infarct in this patient with encephalopathy. 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 * Mild generalized cerebral atrophy with chronic small vessel ischemic changes in the supratentorial white matter, in keeping with age-related and microvascular disease. /[facility] DICTATED BY: GIANLUCA ADAN MD DATE: 06/17/251644 ELECTRONICALLY SIGNED BY: GIANLUCA ADAN MD DATE: 06/17/251644 PATIENT: HUGO WYLIE MR#: [id number] : 1955 SEX: F AGE: 69 LOCATION: [facility] ORDER 2300 STATUS: ADM IN REPORT#: [id number] SERVICE 0600 REASON: chf ORDERING PHYSICIAN: SHMUEL DOLL PROCEDURE: CXR1VW - CHEST 1VW EXAM: CR Chest, 1 View. CLINICAL HISTORY: chf COMPARISON: 06/16/2025 FINDINGS: The right PICC line tip is at the SVC. LUNGS: Interval improvement in bilateral perihilar and bibasilar airspace disease. PLEURAL SPACES: No evidence of pleural effusion or pneumothorax. MEDIASTINUM: Mild cardiomegaly. Interval reduction in pulmonary vascular congestion. BONES: No acute osseous abnormality. Lower cervical spine implants. IMPRESSION: 1. Interval improvement in bilateral perihilar and bibasilar airspace disease with reduction in pulmonary vascular congestion. 2. Mild stable cardiomegaly. 3. Right PICC line tip at the SVC. /[facility] DICTATED BY: DARREL GEORGE Jr., MD DATE: 06/17/251057 ELECTRONICALLY SIGNED BY: DARREL GEORGE Jr., MD DATE: 06/17/251057 PATIENT: HUGO WYLIE MR#: [id number] : 1955 SEX: F AGE: 69 LOCATION: [facility] ORDER 2300 STATUS: ADM IN REPORT#: [id number] SERVICE 0600 REASON: pulmonary edema ORDERING PHYSICIAN: KINSEY TENORIO MD PROCEDURE: CXR1VW - CHEST 1VW EXAM: CR Chest, 1 View. CLINICAL HISTORY: pulmonary edema COMPARISON: 06/14/2025 FINDINGS: A right PICC tip is seen at the proximal superior vena cava. LUNGS: Stable bilateral interstitial and patchy airspace opacities, more evident at the lower lobes, represent pulmonary edema. PLEURAL SPACES: No pneumothorax. Stable small left pleural effusion. MEDIASTINUM: Stable cardiomegaly with pulmonary vascular congestion. BONES: No acute osseous abnormality. Cervical spine implants. IMPRESSION: 1. Stable bilateral pulmonary edema, more prominent in the lower lobes, with cardiomegaly and pulmonary vascular congestion. 2. Stable small left pleural effusion. 3. Right PICC tip at proximal superior vena cava. Overall, in comparison to the previous chest radiograph, there have been no significant interval changes. /[facility] DICTATED BY: DARREL GEORGE Jr., MD DATE: 06/17/251109 ELECTRONICALLY SIGNED BY: DARREL GEORGE Jr., MD DATE: 06/17/251109 PATIENT: HUGO WYLIE MR#: [id number] : 1955 SEX: F AGE: 69 LOCATION: [facility] ORDER 1126 STATUS: ADM IN REPORT#: [id number] SERVICE 22 REASON: check for aortic valve vegatations and EF ORDERING PHYSICIAN: KINSEY TENORIO MD PROCEDURE: ECHO FU LD - ECHO 2-D F/U-LTD APPROVED REPORT EXAM: Limited 3D/Two-dimensional echocardiogram with color Doppler. INDICATION ICD: Assess aortic valvular vegetation and assess ejection fraction 2D Dimensions LVED Vol(simp.) 139.0 mL LVES Vol(simp.) 59.0 mL LVEF(%, simp.) 58 % Deformation Strain Apical 4 -14.5 % Apical 2 -19.7 % Apical 3 -19.3 % Global Strain -17.8 % Left Ventricle Left ventricular cavity size is normal. GLS -18.0% There is normal left ventricular wall thickness. LVEF is 55-60%. Aortic Valve Aortic valve is trileaflet and opens well. Multiple vegeations seen on the aortic valve lealfelts. Large RCC leaflet vegetation seen protruding into the LVOT. Small vegetations seen on the LCC/NCC leaflets. No significant changed seen compared to previous echocardiogram. Other Information Quality : Limited/Follow-up DICTATED BY: JOHN VERA MD DATE: 06/14/25 132 ELECTRONICALLY SIGNED BY: JOHN VERA MD DATE: 06/14/252036 PATIENT: HUGO WYLIE MR#: [id number] : 1955 SEX: F AGE: 69 LOCATION: [facility] ORDER 0819 STATUS: ADM IN REPORT#: [id number] SERVICE 0817 REASON: pulmonary congestion ORDERING PHYSICIAN: KINSEY TENORIO MD PROCEDURE: CXR1VW - CHEST 1VW EXAM: CR CHEST, 1 VIEW CLINICAL HISTORY: pulmonary congestion ,CHF COMPARISON: CR: CHEST 1VW dated 06/12/2025 06:14 AM EST: TECHNIQUE: Single frontal radiograph of the chest was obtained. FINDINGS: Lines/Devices: A right PICC is present with its tip seen at the proximal part of the superior vena cava. Lungs: Progressive course as regards the previously noted bilateral interstitial and patchy airspace opacities., more evident at the lower lobes. Newly developed blunted left costophrenic angle suggestive of a mild left pleural effusion. There is no pneumothorax. Mediastinum and cardiovascular structures: The cardiac silhouette is mildly enlarged. Prominent aortic knuckle is noted. The central airway and mediastinal contours are otherwise unremarkable. Bones and soft tissues: Evidence of fixation of the lower cervical spine is noted. Soft tissues are unremarkable. IMPRESSION: 1. Progressive bilateral bilateral interstitial and patchy airspace opacities, more evident at the lower lobes. 2. Newly developed blunted left costophrenic angle suggestive of a mild left pleural effusion. 3. Mild cardiomegaly. 4. Stable prominent aortic knuckle. 5. As compared to the CR: CHEST 1VW dated 06/12/2025 06:14 AM EST: , progressive course as regards the previously noted bilateral interstitial as well as patchy pulmonary opacities,stationary course as regards the cardiomegaly. Right PICC still seen in situ. Newly developed minimal left pleural effusion. /[facility] DICTATED BY: GIANLUCA ADAN MD DATE: 06/14/252251 ELECTRONICALLY SIGNED BY: GIANLUCA ADAN MD DATE: 06/14/252251 PATIENT: HUGO WYLIE MR#: [id number] : 1955 SEX: F AGE: 69 LOCATION: [facility] ORDER 230 STATUS: ADM IN REPORT#: [id number] SERVICE 0600 REASON: CHF ORDERING PHYSICIAN: VY FOOTE MD PROCEDURE: CXR1VW - CHEST 1VW EXAM: CR Chest, 1 View. CLINICAL HISTORY: CHF COMPARISON: 06/11/2025 FINDINGS: The right PICC line tip is at the SVC. LUNGS: Interval improvement in the bilateral interstitial and patchy airspace opacities. PLEURAL SPACES: No pleural effusion or pneumothorax. MEDIASTINUM: Mild stable cardiomegaly with pulmonary vascular congestion. BONES: No aggressive appearing osseous lesion seen. Cervical spine fusion hardware. IMPRESSION: 1. Bilateral interstitial and patchy airspace opacities, reduced since the prior study. 2. Mild stable cardiomegaly. 3. Right PICC line tip at the SVC. /[facility] DICTATED BY: DARREL GEORGE Jr., MD DATE: 06/12/25 103 ELECTRONICALLY SIGNED BY: DARREL GEORGE Jr., MD DATE: 06/12/25 103 PATIENT: HUGO WYLIE MR#: [id number] : 1955 SEX: F AGE: 69 LOCATION: [facility] ORDER 1204 STATUS: ADM IN REPORT#: [id number] SERVICE 1203 REASON: PICC placement ORDERING PHYSICIAN: VY FOOTE MD PROCEDURE: CXR1VW - CHEST 1VW CHEST 1VW REASON: PICC placement COMPARISON: Prior chest radiograph from 06/08/2025 is available. FINDINGS: Single view of the chest was obtained. There is cardiomegaly. There is diffuse interstitial pulmonary edema. There is a right-sided PIC catheter with tip in distal superior vena cava.. Mediastinum and bony thorax appear unremarkable. There is surgical changes with interpedicular screws and rods in the cervical spine there is anterior cervical disc fusion with orthopedic plate IMPRESSION: 1. The PICC catheter with the tip in the distal superior vena cava in satisfactory position 2. Cardiomegaly with interstitial pulmonary edema DICTATED BY: NARCISO ANTONIO MD DATE: 06/09/25 1228 ELECTRONICALLY SIGNED BY: NARCISO ANTONIO MD DATE: 06/09/25 1233 PATIENT: HUGO WYLIE MR#: [id number] : 1955 SEX: F AGE: 69 LOCATION: [facility] ORDER 16 STATUS: ADM IN REPORT#: [id number] SERVICE 0000 REASON: acute chf exacerbation sob ORDERING PHYSICIAN: RIGOBERTO TADEO PROCEDURE: ECHO CMP - ECHO 2-D COMPLETE APPROVED REPORT EXAM: Two-dimensional and M-mode echocardiogram with Doppler and color Doppler. INDICATION ICD: Acute congestive heart failure, shortness of breath 2D Dimensions RVDd 3.1 cm LVEF(%) 26.1 (>50%) LA ESV INDEX (BP) 35.28 mL/m2 IVSd 1.0 (0.7-1.1cm) FS(%) 12 % LVDd 5.0 (3.8-5.6cm) LA (2D) 4.3 (1.6-4.0cm) PWd 1.0 (0.7-1.1cm) Ao Root(2D) 3.4 (2.0-3.7cm) IVSs 1.0 cm LVOT diam 1.9 (1.8-2.4cm) LVDs 4.4 (2.5-4.0cm) PWs 1.6 cm Aortic Valve AoV Vmax 2.2 m/s Ao Peak GR 18.9 mmHg LVOT Vmax 1.6 m/s AoV VTI 0.3 m Ao Mean GR 9.2 mmHg LVOT VTI 0.24 m PATTIE (VMAX) 2.03 cm2 Al P1/2T 129 ms PATTIE (VTI) 2.0 cm2 Mitral Valve MV E Vmax 144.1 cm/s DECEL Time 105 ms MV A Vmax 82.2 cm/s P 1/2 T 34 ms E/A ratio 1.8 MVA (PHT) 6.5 cm2 TDI E/E' Medial 31.4 E/E' Lateral 15.7 Medial E' Peak V 4.59 cm/s Lateral E' Peak V 9.15 cm/s Pulmonary Valve PV Vmax 1.1 m/s PV Mean GR 2.1 mmHg PV Peak GR 4.6 mmHg Tricuspid Valve TR Vmax 2.1 m/s RAP (EST) 8 mmHg RVSP 26.1 mmHg TR Peak GR 18.1 mmHg Left Ventricle The left ventricle is normal size. There is normal LV segmental wall motion. There is normal left ventricular wall thickness. LVEF is 50-55%. The left ventricular diastolic function is normal. Right Ventricle The right ventricle is normal size. The right ventricular systolic function is normal. Atria The left atrium is mildly dilated. The right atrium is mildly dilated. Aortic Valve Aortic valve is trileaflet and opens well. Difficult to assess severity of aortic insufficiency. Would estimate [id number] Multiple vegetations seen on the aortic valve leafelts. Large Right coronary cusp leaflet vegetation seen protruding into the LVOT. Small non coronary cusp leaflet vegetation seen. Small left coronary cusp leaflet vegetation noted. There is no aortic valvular stenosis. Mitral Valve The mitral valve is normal in structure. There is moderate mitral valve regurgitation noted. There is no mitral valve stenosis. Tricuspid Valve The tricuspid valve is normal in structure. There is no tricuspid valve regurgitation noted. Pulmonic Valve The pulmonary valve is normal in structure. There is mild pulmonic valvular regurgitation. Great Vessels The aortic root is normal in size. IVC is not well visualized. Pericardium There is trivail pericardial effusion seen posteriorly Other Information Quality : Technically challenging study due to body habitus and limited cooperation of pt Conclusion LVEF is 50-55%. LVEF is 50-55%. Multiple vegetations seen on the aortic valve leafelts. Large Right coronary cusp leaflet vegetation seen protruding into the LVOT. Small non coronary cusp leaflet vegetation seen. Small left coronary cusp leaflet vegetation noted. Difficult to assess severity of aortic insufficiency. Would estimate mild-to-m oderate There is moderate mitral valve regurgitation noted. DICTATED BY: BEN BROWN MD DATE: 06/09/25 0796 ELECTRONICALLY SIGNED BY: BEN BROWN MD DATE: 06/09/25 1319 PATIENT: HUGO WYLIE MR#: [id number] : 1955 SEX: F AGE: 69 LOCATION: [facility] ORDER 29 STATUS: ADM IN REPORT#: [id number] SERVICE 28 REASON: r/p P.E. ORDERING PHYSICIAN: JOHN NGUYENCNHever PROCEDURE: CHES PE - CT CHEST PE PROTOCOL WWO CONT EXAM: CTA examination of the chest CLINICAL HISTORY: Rule out pulmonary embolism. TECHNIQUE: Postcontrast thin collimated axial CTA images of the chest were obtained with sagittal and coronal reformatted images also submitted. CT scan is done according to ALARA (As Low as Reasonably Achievable). COMPARISON: None provided. FINDINGS: Moderate pleural effusions bilaterally. Compressive atelectasis and consolidations in the bilateral lower lobes of the lung. Multifocal infiltrates and smooth interstitial thickening in the bilateral lung alejandro, reflecting multifocal pneumonia and pulmonary edema. No pneumothorax or masses evident. Small to medium pericardial effusion. Mild to moderate cardiomegaly. Calcific atherosclerotic disease in the thoracic aorta and coronary arteries. No thoracic aortic aneurysm. Dilated pulmonary trunk measures up to 4.4 cm in diameter. Perihilar vascular congestion. No filling defect or pulmonary thromboembolism is evident Mildly reactive mediastinal lymph nodes. Incidental thyroid nodules. Incidental mildly thickened bilateral adrenal glands. Atherosclerotic calcifications in the abdominal vessels. No acute bony abnormality is evident. Degenerative osseous changes. Chronic compression fracture in the T12 vertebral body with about 70% to 80% height reduction. IMPRESSION: No pulmonary thromboembolism. Small to medium pericardial effusion, cardiomegaly, pulmonary vascular congestion, pulmonary edema, and multifocal pneumonia in the bilateral lung alejandro. Moderate pleural effusions bilaterally. Compressive atelectasis and consolidations in the bilateral lower lobes of the lung. Mildly reactive mediastinal lymph nodes. No pneumothorax. Incidental thyroid nodules recommend ultrasound correlation. Incidental mildly enlarged bilateral adrenal glands, recommend a contrast-enhanced MRI of the adrenals for further characterization, if clinically indicated. 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 CLINICAL HISTORY: SHORTNESS A BREATH COMPARISON: None provided. FINDINGS: There is bilateral perihilar and bibasilar airspace disease that may reflect pulmonary edema. Small bilateral pleural effusions. No pneumothorax. Mild to moderate cardiomegaly and pulmonary vascular congestion. IMPRESSION: 1. Bilateral perihilar and bibasilar airspace disease, possibly representing pulmonary edema, with small bilateral pleural effusions. 2. Mild to moderate cardiomegaly and pulmonary vascular congestion. /[facility] DICTATED BY: DARREL GEORGE Jr., MD DATE: 06/08/251949 ELECTRONICALLY SIGNED BY: DARREL GEORGE Jr., MD DATE: 06/08/251949 ASSESSMENT: Hyponatremia Acute on chronic renal failure Acute hypoxic resp failure requiring BIPAP-POA Sepsis 2/2 community acquired pneumonia-POA NSTEMI-likely type II 2/2 demand ischemia from hypoxia vs. true cardiac etiology-POA- negative for chest pain or ST/T wave abnormality. HEART score 6 points=12-16.6% risk for MACE Possible new-onset CHF with exacerbation-POA Hyperlactatemia-POA Acute infectious encephalopathy-POA Suspected new-onset COPD with exacerbation-POA, in the setting of chronic nicotine disorder Pulmonary edema-POA Bilateral pleural effusions-POA Moderate hyponatremia, suspected acute-POA Sleep deprivation 2/2 current illness-POA History of paroxysmal AFib Chronic nicotine disorder: [id number] HX Prior CVA Neck and back surgery Detached retina Hyperthyroid disorder/Graves disease with right thyroid nodule HX of left greater trochanter fracture Medical non-compliance, HX of AMA last hospitalization in [facility] PLAN: Labs, diagnostic, radiologic exams reviewed and interpreted by myself and supervising physician. We have reviewed external records in detail Order UA Require close monitoring of renal function and electrolytes Order CBC, CMP, and electrolytes in am Continue with antibiotics as per ID BiPAP as necessary, for respiratory distress IV pressors as needed Monitor blood pressure adjust medication doses as needed Avoid hypotensive episodes May use Dilaudid 0.5 mg IV every 6 hours as needed for severe pain Monitor blood sugars Strict intake, output, and daily weight should be monitored Please renally adjust medications Avoid nephrotoxic and nonsteroidal drugs Avoid contrast if possible Will continue to monitor renal function, anemia, electrolytes Treatment plan discussed with patient Questions were answered We have discussed with the other team physicians in detail about the care plan We will continue to monitor the patient closely Total critical care time spent with patient, nursing staff, critical care team over 35 minutes ATTESTATION BY PHYSICIAN I have seen and examined the patient. I reviewed the documentation, medical decision making, and treatment plan as noted by the mid-level provider above. I agree with the findings and plan of care. FLAVIA METCALF MD, [facility] Jun 18, 2025 09:11
--- NOTE | 2025-06-18 10:29 | PN ---
[facility] PROGRESS NOTE Date of Service: Jun 18, 2025 Time of Service: 10:29 SUBJECTIVE: HISTORY OF PRESENT ILLNESS: This is a 69-year-old female past medical history of emphysema peripheral neuropathy, atrial fibrillation and hyperthyroidism who was brought by EMS to the ED for complaints of shortness of breaths,dry cough and generalized body weakness which started for the past 3 weeks and getting worse this past few days.Patient reports she lives alone and a current heavy cigarette smoker 1 pack/day.As per patient she has been going to her PCP every week x 3 weeks and was started on steroids prednisone and inhaler and patient also reports was admitted for having atrial fibrillation last 05/09/25 and was seen by at [facility] [place]. Patient reports has not seen a rehab rn.Patient complaints of chest tightness with dry cough for the past 3 weeks but has not improved and its getting worse so she decided to come to the ED .On further evaluation ,patient was asked by the undersigned if it come to appoint where she needs to be orally intubated and patient states she is okay and in the meantime she wants to try th e Bipap. Seen and examined patient in the ER awake,alert and appears very short of breath,she has a friend at bedside and helping her from time to time with medical history as patient appears anxious as well.Patient denies chest pain,palpitation,nausea,vomiting and fever. Latest vital signs temperature 98.1, heart rate 110, respiration 35, blood pressure 140/56 saturation 96 on B iPAP 40% FiO2. Labs: WBC 19 with negative left shift of neutrophils 84, hemoglobin 9, hematocrit 30, platelet count 386. Sodium 122, chloride 93, CO2 18, BUN 23, glucose 140, lactic acid 3.1 troponin 112 BNP 3370. D-dimer 3746, PT 15, INR 1.4 PTT 28. Influenza type a and B negative SARS COVID negative. Chest x-ray result revealed bilateral perihilar and bibasilar airspace disease possibly representing pulmonary edema with small bilateral pleural effusion. [id number] cardiomegaly and pulmonary vascular congestion. While in the ER patient received Solu-Medrol 125 mg IV, albuterol two unit dose via inhalation, levofloxacin 750 mg IV, Protonix 40 mg, NS 500 mL bolus, Lasix 80 mg IV and morphine 2 mg IV. Patient was started on Precedex per ICU radha mmendation. Admit patient for further medical management. 06/09/2025: The patient was seen and evaluated bedside in ICU, no family at bedside. Patient is agitated, anxious on max doses of Precedex, saturating 100% with FiO2 60 on BiPAP. Patient is currently on norepinephrine drip 0.05 mcg/mL/kg and heparin drip q.[address] chest showed no pulmonary thromboembolism, small to medium pericardial effusion, cardiomegaly, pulmonary vascular congestion, pulmonary edema and multifocal pneumonia in bilateral lung alejandro. Continue Zosyn, doxycycline, IV Lasix, Solu-Medrol IV. Morning lab showed white count 17.4, sodium 124, bicarb 14, lactic acid 3.7, troponin 178, BNP 3060, AST 1479, ALT 561. Patient has bicarb deficit of 336, we ordered sodium bicarbonate 100 mEq single dose and we will repeat bicarb this evening. Nephrology, Cardiology, critical Care on board we will continue to follow the recommendations. 06/10/2025: The patient was seen and evaluated bedside in ICU, no family at bedside. Patient is currently on Precedex, norepinephrine drip. Abdominal ultrasound showed focal edematous wall thickening of gallbladder with minimal pericholecystic fluid, recommended HIDA scan if there is persistent clinical concern for cholecystitis. Lab showed white count trending down to 17.1, lactic acid trending down to 3, AST 3143, ALT 1515. Zosyn has been discontinued by Infectious Disease, patient was started on cefepime and vancomycin. Cardiology recommended transesophageal echocardiography once the patient become more stable. 06/11/2025: The patient was seen and evaluated bedside in ICU, no family at bedside. Patient is currently on one-to-one sitter. Patient continues to be on Precedex, norepinephrine, heparin drip. Morning lab shows white count 22.3, sodium 135, potassium 3.1, BUN 52, creatinine 1.5, fibrinogen 265, lactic acid trended down to 2, AST trended down to 946, ALT trended down to 1026. Blood culture shows no growth so far. Continue IV antibiotics as recommended by Infectious Disease. 06/12/2025: Patient was evaluated bedside in room 215 and several family members were present at the bedside. Patient also has 2 on 1 sitter. Patient was awake and alert but is mildly confused. Patient is still recovering from sepsis from community-acquired pneumonia and her white count remained stable at 22.4k. Patient oxygenating well via high-flow nasal cannula Oxymizer with flow rate of 5 L. Still continues on amiodarone drip due to AFib with telemetry consistent with Afib. Patient is still pending a HIDA scan and VICK due to her respiratory status. We will continue linezolid, cefepime and doxycycline and start to taper methylprednisolone as per critical Care recommendations. 06/13/2025: Patient was seen and evaluated in room 215, no family at bedside. Patient is awake, alert, oriented x3, saturating 96 % with Oxymizer. Patient says that she is feeling better, denies any new or worsening symptoms. Cardiology recommended discontinuing amiodarone drip, started patient on amiodarone 200 mg twice daily. Labs show white count trending down to 19.2, BNP trending down to 3180, AST trending down to 193, ALT trending down to 608. We w ill continue linezolid, cefepime, metronidazole and doxycycline. 06/14/2025: Patient was seen and evaluated in room 215, no family at bedside. Patient is awake, alert, saturating 90% with 10L nasal cannula. Morning labs show white count trending down to 15.1, BUN 55, creatinine 1.7, BNP 4680, lactic acid 4.6, AST trending down to 105, ALT trending down to 468. We will order li mited echocardiogram to check for aortic valve vegetations and ejection fraction. Continue oral amiodarone, Lasix, Solu-Medrol, linezolid, cefepime, metronidazole, doxycycline. Plan for VICK as per cardiology. Cardiology, Infectious Disease on board we will continue to follow their recommendations. 06/15/2025: Patient was seen and evaluated in room 215, no family at bedside. Patient is awake, alert, saturating 96% with high-flow nasal cannula. Morning labs show BNP 4530, BUN 77, creatinine 1.9, white count 15.8. Limited echocardiogram was done which shows LVEF 55-60%, multiple vegetations on aortic valve leaflets. IV Lasix has been increased to 40 mg Q 8 by critical care team. Cardiology recommended discontinuing midodrine, heparin drip and patient was started on Lovenox. Continue oral amiodarone, Lasix, Solu-Medrol, linezolid, cefepime, metronidazole, doxycycline. Plan for VICK as per cardiology. Cardiology, Infectious Disease on board we will continue to follow their recommendations. 06/16/2025: Patient was seen and evaluated in room 215, no family at bedside. Patient is awake, alert, confused saturating 94% with high-flow nasal cannula. Morning labs show BNP trending down to 3070, lactic acid trending down to 3.7, potassium 2.9, BUN 80, creatinine 2.3. Negative Fluid balance today 600. We will replace potassium, continue oral amiodarone, IV Lasix, Solu-Medrol, l inezolid, cefepime, metronidazole, doxycycline. We will request case management for evaluation as patient will need long-term antibiotics for 4-6 weeks, critical care at discharge. Cardiology, Infectious Disease on board we will continue to follow their recommendations. 06/17/2025: Patient was seen and evaluated in room 215, no family at bedside. Patient is currently sedated, and unable to communicate, saturating 97% with BiPAP with a FiO2 of 60%. Patient was started on norepinephrine drip yesterday as her systolic blood pressure in the 80s. Today the plan is to wean off Precedex and norepinephrine drip. Morning labs show BNP trending down to 2170, lactic acid trending down to 3.1, BUN 82, creatinine 2.5, platelets trending down to 93. We ordered renal ultrasound, urine electrolytes, urine creatinine to further evaluate renal function. continue oral amiodarone, metoprolol, IV Lasix, Solu-Medrol, linezolid, cefepime, metronidazole, doxycycline. Cardiology, Infectious Disease on board we will continue to follow their recommendations. 06/18/2025: Patient was seen and evaluated in room 215, no family at bedside. Patient is awake, alert, 99% with high-flow nasal cannula. Patient continues on norepinephrine drip at 5.5 mL/hour. Morning lab show BNP trending down to 826, lactic acid trending up to 5.9, platelets trending down to 62, PT 17.8, INR 1.78, APTT 41.9, fibrinogen 89. We will give cryoprecipitate today. Head CT shows no hemorrhage, chronic encephalomalacia in the right occipitotemporal daisy on with associated ex vacuo dilation of occipital horn of the right lateral ventricle, most compatible with sequela of prior infarct or insult. Linezolid, IV Lasix has been stopped, continue oral amiodarone, metoprolol, Solu-Medrol, cefepime, metronidazole, doxycycline. Cardiology, Infectious Disease on board we will continue to follow their recommendations. REVIEW OF SYSTEMS CONSTITUTIONAL: Denies fevers, chills, or night sweats. No unintentional weight loss reported. NEUROLOGICAL: Denies headache, amaurosis fugax, motor weakness, sensory deficit, vertigo/spinning sensation, gait abnormalities, or tremors. ENT: No hearing loss, otalgia, otorrhea, rhinitis, rhinorrhea, hoarseness, or sore throat. CARDIOVASCULAR: Denies any exertional angina, dyspnea on exertion, orthopnea, paroxysmal nocturnal dyspnea, palpitations, life-threatening arrhythmias, claudication. PULMONARY: Complaints of shortness of breaths, dry cough and chest tightness x3 weeks Denies phlegm/sputum, hemoptysis, pleuritic chest pain. SLEEP: Denies morning headaches, daytime somnolence or napping. Denies difficulty falling asleep, staying asleep, waking from sleep. Denies knowledge of snoring. GASTROINTESTINAL: Denies any type of dysphagia to either liquids or solids. Denies nausea, vomiting, pyrosis, early satiety, abdominal pain, diarrhea, c onstipation, or changes in stool consistency or caliber. Denies coffee-ground emesis, hematemesis, hematochezia, or melanotic stools. GENITOURINARY: Denies frequency, urgency, nocturia, hematuria or incontinence (Storage/Irritative symptoms.) Low urinary stream, straining to void, urinary intermittency or hesitancy, splitting of the voiding stream, terminal dribbling. ENDOCRINOLOGIC: Denies polyuria, polydipsia, polyphagia or heat/cold intolerances. HEMATOLOGIC: Denies thrombophilia/previous clots, or coagulopathy/bleeding disorders. ONCOLOGIC: Denies personal history of malignancy. DERMATOLOGIC: Denies rashes or pruritus. PSYCHIATRIC: Denies any suicidal or homicidal ideation. Denies hallucinations. PHYSICAL EXAM GENERAL APPEARANCE: The patient is awake, alert, and oriented to self but not to place and time ,moderate respiratory distress NEUROLOGICAL: Cranial nerves II-XII grossly intact. Motor is 5/5 in bilateral upper and lower extremities proximal to distal. No sensory deficits. HEENT: Face is symmetric. Pupils are equal and reactive. Extraocular movements are intact. NECK: Supple. No JVD. No thyromegaly. No submental, submandibular, pre- /postauricular, occipital or supraclavicular lymphadenopathy. CHEST: Normal chest expansion. No Telemetry. LUNGS: tachypneic, with NC via Oxymizer CARDIOVASCULAR: Tachycardic Regular. S1 and S2 normal. No appreciable rubs, murmurs or gallops. ABDOMEN: Soft, nontender, and nondistended. There is no rebound, voluntary guarding, or rigidity. : Deferred. Gonzalez. EXTREMITIES: Non-edematous and not cyanotic. No clubbing. Good capillary r efill. SKIN: No skin breakdown. Vital Signs (last 8hr) Date Time Temp Pulse Resp B/P (MAP) Pulse Ox O2 Delivery O2 Flow Rate FiO2 06/18/25 09:23 82 15 121/40 (67) 99 06/18/25 09:08 82 16 115/38 (63) 98 06/18/25 08:53 81 16 111/42 (65) 99 06/18/25 08:38 78 15 116/47 (70) 99 06/18/25 08:23 79 15 111/51 (71) 98 06/18/25 08:08 78 15 121/46 (71) 100 06/18/25 07:53 74 15 121/49 (73) 98 06/18/25 07:38 99.0 75 13 122/52 (75) 97 06/18/25 07:05 73 16 HFNC Heated System N/Can 20.0 40 06/18/25 07:00 73 16 120/48 (72) 99 06/18/25 06:45 70 15 121/58 (79) 100 06/18/25 06:43 71 22 06/18/25 06:40 71 22 40 06/18/25 06:30 71 4 116/41 (66) 100 06/18/25 06:15 73 18 118/43 (68) 98 06/18/25 06:00 72 18 127/52 (77) 100 06/18/25 05:45 75 18 122/44 (70) 100 06/18/25 05:30 75 18 112/52 (72) 98 06/18/25 05:15 72 123/40 (67) 100 06/18/25 05:00 71 15 119/56 (77) 99 06/18/25 04:45 73 17 123/43 (69) 100 06/18/25 04:30 78 18 118/45 (69) 100 06/18/25 04:15 72 19 118/55 (76) 100 06/18/25 04:04 97.5 06/18/25 04:00 75 15 121/44 (69) 100 06/18/25 04:00 99 CPAP+ 30 60 06/18/25 03:45 74 17 113/45 (67) 100 06/18/25 03:30 77 14 128/40 (69) 100 06/18/25 03:15 76 12 122/49 (73) 100 06/18/25 03:00 76 12 122/49 (73) 100 06/18/25 02:45 76 15 117/51 (73) 100 06/18/25 02:30 73 19 121/51 (74) 99 LABS: Laboratory: Test 06/18/25 10:27 06/18/25 08:38 06/18/25 05:15 06/17/25 16:21 Range/Units Blood Gas Specimen Type Arterial Arterial Blood pH 7.349 L 7.350-7.450 Arterial Blood Partial Pressure CO2 41 32-45 mmHg Arterial Blood Partial Pressure O2 < 45.0 *L 83.0-108.0 mmHg Arterial Blood HCO3 22.2 21.0-28.0 mmol/L Arterial Blood Oxygen Saturation 68.3 L 94.0-98.0 % Arterial Blood Base Excess -3.2 L -2.0-3.0 mmol/L Hemoglobin (Blood Gas) 9.6 L 12.0-16.0 g/dL Sodium (Blood Gas) 137 136-145 MMOL/L Bedside Potassium (Blood Gas) 3.1 L 3.4-4.5 MMOL/L Bedside Chloride (Blood Gas) 104 98-107 MMOL/L Bedside Glucose (Blood Gas) 322 H 65-95 MG/DL Bedside Ionized Calcium (Blood Gas) 0.96 L 1.15-1.33 MMOL/L Bedside Lactic Acid (Blood Gas) 5.94 *H 0.36-0.75 MMOL/L Blood Gas Temperature 37.0 35.5-37.0 CELSIUS Blood Gas Flow-by 20.00 H 0.00-15.00 L/min Blood Gas Vent Mode HFNC 2OL ROOM AIR FiO2 40.0 % Blood Gas Specimen Comment RRROSIE Whole Blood Glucose 298 H 70-110 MG/DL White Blood Count 19.0 H 4.8-10.8 K/uL Red Blood Count 3.47 L 4.00-5.50 MIL/uL Hemoglobin 8.4 L 12.0-16.0 g/dL Hematocrit 25.5 L 36-48 % Mean Corpuscular Volume 73.5 L 79-99 fL Mean Corpuscular Hemoglobin 24.2 L 27.0-33.0 pg Mean Corpuscular Hemoglobin Concent 32.9 32.0-36.0 g/dL Red Cell Distribution Width 20.4 H 11.0-15.5 % Platelet Count 62 #L 130-400 K/uL Mean Platelet Volume 7.5-10.5 fL Immature Granulocyte % (Auto) 0.8 0-1 % Neutrophils (%) (Auto) 94.3 H 40.0-77.0 % Lymphocytes (%) (Auto) 1.8 L 21.0-51.0 % Monocytes (%) (Auto) 3.0 3.0-13.0 % Eosinophils (%) (Auto) 0.0 0.0-8.0 % Basophils (%) (Auto) 0.1 0.0-5.0 % Neutrophils # (Auto) 17.9 H 1.8-7.7 K/uL Lymphocytes # (Auto) 0.4 L 1.0-4.8 K/uL Monocytes # (Auto) 0.6 0.1-1.0 K/uL Eosinophils # (Auto) 0.00 0.00-0.70 K/uL Basophils # (Auto) 0.02 0.00-0.20 K/uL Absolute Immature Granulocyte (auto 0.16 0-1 K/uL Nucleated Red Blood Cells 0.7 H 0.0-0.19 % Prothrombin Time 17.8 H 9.6-11.6 SEC Prothromb Time International Ratio 1.78 H 0.85-1.15 Activated Partial Thromboplast Time 41.9 H 26.3-35.5 SEC Sodium Level 140 136-145 mmol/L Potassium Level 3.0 *L 3.5-5.1 mmol/L Chloride Level 103 101-111 mmol/L Carbon Dioxide Level 23 21-32 mmol/L Blood Urea Nitrogen 86 *H 7-18 mg/dL Creatinine 2.4 H 0.5-1.0 mg/dL Glomerular Filtration Rate Calc 21 >90 mL/min Random Glucose 296 H 70-105 mg/dL Lactic Acid Level 4.9 H 0.8-2.5 mmol/L Total Calcium 6.8 L 8.5-10.1 mg/dL Phosphorus Level 4.7 2.5-4.9 mg/dL Magnesium Level 2.00 1.80-2.40 mg/dL Total Bilirubin 7.9 H 0.2-1.0 mg/dL Aspartate Amino Transf (AST/SGOT) 64 H 10-37 U/L Alanine Aminotransferase (ALT/SGPT) 181 H 12-78 U/L Alkaline Phosphatase 97 50-136 U/L B-Type Natriuretic Peptide 826 H 0-100 pg/mL Total Protein 4.5 L 6.0-8.3 g/dL Albumin 1.9 L 3.5-5.0 g/dL Blood Gas Respiration Rate 18.0 min. Test 06/17/25 12:34 06/17/25 09:38 06/17/25 04:15 Range/Units Blood Gas CPAP 10 cm H2O Procalcitonin 0.22 0.05-0.5 ng/mL Segmented Neutrophils % 99 H 40-70 % Monocytes % (Manual) 1 L 2-9 % Differential Comment MANUAL DIFFERENTIAL White Cell Morphology Comment Platelet Morphology Comment See comments Red Blood Cell Morphology See comments Current Medications Medications (Trade) Dose Ordered Sig/Rossy Route PRN Reason Start Time Stop Time Status Last Admin Dose Admin Acetaminophen (TYLenol 325MG TAB) 650 mg Q4H PRN PO MILD PAIN (1-3) 06/08/25 20:30 07/08/25 20:29 06/12/25 10:16 650 MG Acetaminophen (TYLenol 325MG TAB) 650 mg Q6H PRN PO TEMPERATURE GREATER THAN 101.5 06/08/25 20:30 07/08/25 20:29 06/12/25 20:47 650 MG Albuterol (DUOneb) 1 udvial [id number] IH 06/08/25 22:00 07/08/25 21:59 06/18/25 10:08 1 UDVIAL Amiodarone HCl (pacERONE 200MG) 200 mg BID PO 06/13/25 21:00 07/13/25 20:59 06/18/25 09:47 200 MG Amiodarone HCl 540 mg/Dextrose 300 ml @ 16.667 mls/ hr PROTOCOL IV 06/12/25 10:00 06/13/25 03:59 DC 06/12/25 11:33 16.667 MLS/HR Amiodarone HCL/ Dextrose 100 ml @ 600 mls/hr PROTOCOL IV 06/12/25 05:00 06/12/25 06:53 DC 06/12/25 05:10 600 MLS/HR Amiodarone HCL/ Dextrose 100 ml @ 0 mls/hr PROTOCOL IV 06/12/25 07:00 06/12/25 07:01 DC Amiodarone HCL/ Dextrose 200 ml @ 33.333 mls/ hr PROTOCOL IV 06/12/25 05:00 06/12/25 06:53 DC 06/12/25 05:11 33.333 MLS/HR Budesonide (Pulmicort 0.5 Mg/2ml) 0.5 mg BIDRESP IH 06/09/25 18:00 07/09/25 17:59 06/18/25 06:38 0.5 MG Cefepime HCl (MAXipime 1 GM vial) 1 gm Q12H IVPB 06/10/25 14:00 06/10/25 14:35 DC 06/10/25 14:23 1 GM Cefepime HCl (MAXipime 1 GM vial) 1 gm Q12H9 IVPB 06/10/25 21:00 06/24/25 13:59 06/18/25 09:44 1 GM Cefepime HCl (MAXipime 1 GM vial) 1 gm Q8H IVPB 06/10/25 09:30 06/10/25 09:41 DC Dexmedetomidine/ Sodium Chloride (PRECEdex 200MCG/ 50ML-NS) 200 mcg PROTOCOL IV 06/16/25 11:30 07/16/25 11:29 06/18/25 05:50 200 MCG Dexmedetomidine/ Sodium Chloride (PRECEdex 400MCG/ 100ML-NS) 400 mcg PROTOCOL IV 06/08/25 20:00 06/11/25 17:00 DC 06/11/25 09:27 400 MCG Dextrose (D50w) 50 ml AD PRN IV HYPOGLYCEMIA PROTOCOL 06/17/25 14:30 07/17/25 14:29 Dorzolamide/ Timolol (Cosopt Eye Drops) 1 DROP BID OP 06/09/25 21:00 07/09/25 20:59 06/18/25 09:48 1 ML Doxycycline Hyclate 250 ml @ 125 mls/hr Q12H IV 06/08/25 23:00 06/18/25 22:59 06/17/25 21:38 125 MLS/HR Enoxaparin Sodium (Lovenox (Pharmacy To Dose)) 1 unit Q24H SQ 06/15/25 14:00 06/15/25 14:01 DC Enoxaparin Sodium (Lovenox 80mg) 70 mg Q24H SQ 06/15/25 14:30 06/17/25 12:11 DC 06/16/25 14:39 70 MG Famotidine (Pepcid 20mg Vial) 20 mg DAILY IV 06/09/25 09:00 06/09/25 13:09 DC 06/09/25 08:39 20 MG Fluticasone Propionate (FLOnase 50 mcg/ spray 16g bottle) 1 SPRAY DAILY EN 06/12/25 15:00 07/12/25 14:59 06/18/25 09:46 1 SPRAYS Furosemide (LASix 20MG VIAL) 20 mg BID IVP 06/12/25 09:00 06/12/25 09:19 DC 06/12/25 08:57 20 MG Furosemide (LASix 40MG VIAL) 20 mg BID IVP 06/11/25 21:00 06/12/25 06:54 DC 06/11/25 21:26 20 MG Furosemide (LASix 40MG VIAL) 40 mg BID IVP 06/08/25 21:00 06/11/25 17:00 DC 06/11/25 09:32 40 MG Furosemide (LASix 40MG VIAL) 40 mg BID IVP 06/12/25 21:00 06/14/25 13:19 DC 06/14/25 08:24 40 MG Furosemide (LASix 40MG VIAL) 40 mg Q8H6 IVP 06/14/25 14:00 06/17/25 12:12 DC 06/17/25 05:22 40 MG Glucagon (Glucagon 1mg Kit) 1 mg AD PRN IM HYPOGLYCEMIA PROTOCOL 06/17/25 14:30 07/17/25 14:29 Heparin Sodium (Porcine) (HEParin 5,000 UNIT VIAL) *calculation based on ACTUAL B... AD PRN IV HEPARIN PROTOCOL 06/09/25 04:00 06/15/25 14:01 DC Heparin Sodium/ Dextrose 250 ml @ 0 mls/hr Q6H IV 06/09/25 04:00 06/15/25 13:58 DC 06/15/25 02:42 4.7 MLS/HR Home Med (Home Medication) (Methimazole 5MG TAB) - 0.5 TAB... DAILY PO 06/10/25 09:00 07/10/25 08:59 06/18/25 09:47 1 EACH Insulin Human Regular (humuLIN R 100 UNIT/ML 3ML) INSULIN SLIDING SCAL... ACHS SQ 06/17/25 16:30 06/18/25 10:03 DC 06/18/25 08:53 6 UNIT Insulin Human Regular (humuLIN R 100 UNIT/ML 3ML) INSULIN SLIDING SCAL... ACHS SQ 06/18/25 11:30 07/18/25 11:29 Lactulose (Constulose 20gm/ 30ml Udcup) 20 gm BID PRN PO CONSTIPATION 06/13/25 07:30 07/13/25 07:29 Latanoprost (Xalatan) 1 DROP HS OD 06/09/25 21:00 07/09/25 20:59 06/17/25 22:15 2.5 DROP Levofloxacin/ Dextrose 100 ml @ 100 mls/hr Q24H IV 06/09/25 20:00 06/08/25 22:40 DC Linezolid 300 ml @ 150 mls/hr Q12H IV 06/11/25 11:30 06/11/25 12:38 DC Linezolid 300 ml @ 150 mls/hr Q12H IV 06/11/25 14:30 06/21/25 14:29 06/18/25 02:07 150 MLS/HR Magnesium Sulfate 50 ml @ 0 mls/hr PROTOCOL PRN IV MAGNESIUM PROTOCOL 06/09/25 17:00 07/09/25 16:59 06/12/25 03:21 25 MLS/HR Methylprednisolone Sodium Succinate (Solu-medROL 40MG) 40 mg Q12H9 IVP 06/12/25 21:00 07/09/25 13:29 06/18/25 09:45 40 MG Methylprednisolone Sodium Succinate (Solu-medROL 40MG) 40 mg Q8H IVP 06/09/25 13:30 06/12/25 14:11 DC 06/12/25 13:23 40 MG Metoprolol Tartrate (loprESSOR) 2.5 mg Q6H PRN IV heart rate greater than 110 06/12/25 03:30 07/12/25 03:29 Metoprolol Tartrate (loprESSOR) 25 mg BID PO 06/12/25 21:00 06/17/25 12:12 DC 06/16/25 21:24 25 MG Metronidazole/ Sodium Chloride 100 ml @ 100 mls/hr Q8H6 IVPB 06/10/25 14:00 06/20/25 13:59 06/18/25 05:50 100 MLS/HR Midodrine (PROAMatine 5 MG TABLET) 5 mg TID PO 06/10/25 14:00 06/11/25 08:52 DC 06/10/25 20:08 5 MG Midodrine (PROAMatine 5 MG TABLET) 10 mg TID PO 06/11/25 09:00 06/15/25 13:58 DC 06/14/25 21:14 10 MG Nicotine (Nicoderm) 21 mg DAILY TD 06/08/25 23:00 07/08/25 22:59 06/18/25 09:47 21 MG Norepinephrine 250 ml @ 0 mls/hr PROTOCOL IV 06/09/25 01:00 07/09/25 00:59 06/17/25 05:41 27.7 MLS/HR Olanzapine (ZyPREXA 5 mg tab) 5 mg BID PO 06/10/25 21:00 06/17/25 12:13 DC 06/16/25 21:24 5 MG Ondansetron HCl (zoFRAN 4MG INJ) 4 mg Q6H PRN IV NAUSEA/VOMITING 06/08/25 20:30 07/08/25 20:29 Oseltamivir Phosphate (Tamiflu) 75 mg BID PO 06/09/25 21:00 06/10/25 09:08 DC 06/10/25 09:03 75 MG Pantoprazole Sodium (PROTonix 40MG INJ) 40 mg DAILY IVP 06/10/25 09:00 07/10/25 08:59 06/18/25 09:45 40 MG Pharmacy Profile Note (Pharmacy Communication) 1 each ONCE MISC 06/09/25 03:00 06/09/25 03:24 DC Pharmacy Profile Note (Pharmacy Communication) 1 each ONCE MISC 06/11/25 11:30 06/11/25 11:19 DC Pharmacy Profile Note (Pharmacy Communication) 1 each ONCE MISC 06/16/25 11:00 06/16/25 11:08 DC Pharmacy Profile Note (Pharmacy Communication) 1 each ONCE [facility] 06/16/25 17:00 06/16/25 17:10 DC Phytonadione (Vitamin K 10mg/ 1ml Adult Vial) 10 mg DAILY SQ 06/11/25 09:00 06/13/25 15:00 DC 06/13/25 09:24 10 MG Phytonadione (Vitamin K 10mg/ 1ml Adult Vial) 10 mg Q24H SQ 06/10/25 15:00 06/10/25 16:55 DC 06/10/25 15:11 10 MG Piperacillin Sod/ Tazobactam Sod (Zosyn 3.375gm+NS 50ml) 3.375 gm Q8H IV 06/08/25 23:00 06/10/25 09:08 DC 06/10/25 07:10 3.375 GM Potassium Chloride 100 ml @ 50 mls/hr AD PRN IV POTASSIUM PROTOCOL 06/09/25 17:00 06/11/25 06:10 DC 06/09/25 21:18 50 MLS/HR Potassium Chloride 100 ml @ 100 mls/hr AD PRN IV POTASSIUM PROTOCOL 06/09/25 17:00 07/09/25 16:59 06/16/25 06:09 100 MLS/HR Potassium Chloride 100 ml @ 100 mls/hr AD PRN IV POTASSIUM PROTOCOL 06/16/25 12:00 07/16/25 11:59 06/18/25 09:44 100 MLS/HR Potassium Chloride (K-Dur/Klor-Con 20meq) 20 meq AD PRN PO POTASSIUM PROTOCOL 06/09/25 17:00 07/09/25 16:59 Potassium Chloride (KCl 10% Elixir 20meq/15ml) 20 meq AD PRN PO POTASSIUM PROTOCOL 06/09/25 17:00 07/09/25 16:59 Sevelamer HCl (RENAgel 800 MG TAB) 400 mg TIDMEALS PO 06/17/25 12:00 06/17/25 15:36 DC Sodium Bicarbonate 150 meq/Sodium Chloride 1,150 ml @ 100 mls/hr [id number] IVP 06/09/25 12:00 06/09/25 12:29 DC Sodium Bicarbonate (Sodium Bicarbonate) 650 mg BID PO 06/13/25 11:30 06/13/25 11:58 DC Sodium Bicarbonate (Sodium Bicarbonate) 1,300 mg BID PO 06/13/25 21:00 07/13/25 20:59 06/18/25 09:46 1,300 MG Vancomycin HCl 250 ml @ 125 mls/hr Q24H IV 06/11/25 10:00 06/11/25 11:15 DC 06/11/25 09:31 125 MLS/HR Vancomycin HCl (Vancomycin Protocol) 1 each AD IV 06/10/25 09:30 06/11/25 11:15 DC Ziprasidone (Geodon) 10 mg Q6H PRN IM AGITATION/PSYCHOSIS 06/09/25 18:00 06/17/25 12:13 DC 06/11/25 17:28 10 MG DIAGNOSTICS / RADIOLOGY: [ ] [place] [address] IMAGING REPORT Signed PATIENT: HUGO WYLIE MR#: [id number] : 1955 SEX: F AGE: 69 LOCATION: 2CH ORDER [id number] STATUS: ADM IN REPORT#: [id number] SERVICE 1152 REASON: Mounika ORDERING PHYSICIAN: KINSEY TENORIO MD PROCEDURE: RENAL - US RENAL SONOGRAM EXAM: US Retroperitoneum Complete, Renal. CLINICAL HISTORY: Acute kidney injury. TECHNIQUE: Real-time ultrasound of the retroperitoneum (complete) with image documentation. COMPARISON: A prior abdominal sonography dated 06/09/2025. FINDINGS: RIGHT KIDNEY: Measures 10.5 x 4 x 4.7 cm. No cyst, calculi, hydronephrosis, or mass visualized. No interval changes as the prior examination. LEFT KIDNEY: Measures 9.6 x 4.2 x 4.4 cm. No cyst, calculi, hydronephrosis, or mass visualized. No interval changes as the prior examination. BLADDER: Gonzalez's catheter is positioned in the bladder lumen. Unremarkable as visualized. IMPRESSION: 1. Unremarkable renal ultrasound, stable since the prior ultrasound of the abdomen dated June 09, 2025 . /[place] DICTATED BY: GIANLUCA ADAN MD DATE: 06/18/251145 ELECTRONICALLY SIGNED BY: GIANLUCA ADAN MD DATE: 06/18/251145 [place] [address] IMAGING REPORT Signed PATIENT: HUGO WYLIE MR#: [id number] : 1955 SEX: F AGE: 69 LOCATION: 2C ORDER 07 STATUS: ADM IN REPORT#: [id number] SERVICE 06 REASON: encephalopathy ORDERING PHYSICIAN: VY FOOTE MD PROCEDURE: HEAD WO - CT HEAD/BRAIN W/O CONTRAST EXAM: CT SCAN OF THE BRAIN WITHOUT CONTRAST CLINICAL HISTORY: Encephalopathy. TECHNIQUE: Axial computed tomography images of the head and brain were obtained without intravenous contrast. Coronal and sagittal reformatted images were obtained. Radiation dose reduction was achieved using ALARA (as low as reasonably achievable) principles including automatic exposure control, adjustment of mA and/or kV according to patient size and weight, and the use of iterative reconstruction techniques. RADIATION DOSE: CTDIvol 40.80 mGy; DLP 861.60 mGycm. CONTRAST: No intravenous contrast administered. COMPARISON: None provided. FINDINGS: Brain parenchyma: Focal area of encephalomalacia is present in the right occipitaltemporal region with associated volume loss. No acute intraparenchymal hemorrhage, mass, or mass effect is identified. White matter: Scattered hypodense foci in the bilateral periventricular and subcortical white matter are most compatible with chronic small vessel ischemic change. Graywhite matter differentiation is preserved. Ventricles and cisterns: Mild prominence of the ventricular system, sulcal spaces, basal cisterns, and sylvian fissures, in keeping with age-related cerebral volume loss. Mild ex vacuo dilatation of the occipital horn of the right lateral ventricle adjacent to the area of encephalomalacia. No hydrocephalus or midline shift is seen. Extra-axial spaces: Extra-axial spaces are mildly prominent, consistent with generalized cerebral atrophy. No acute extra-axial fluid collection or hemorrhage is demonstrated. Posterior fossa: Brainstem and cerebellum are unremarkable without focal abnormality. Sellar/parasellar region: Pituitary gland, optic chiasm, and pineal region appear unremarkable. CP angles and IACs: Cerebellopontine angle cisterns and internal auditory canals are clear and unremarkable. Skull and sinuses: Calvarium and skull base demonstrate normal bone density without acute fracture or destructive osseous lesion. The visualized paranasal sinuses are clear. IMPRESSION: * No CT evidence of acute intracranial hemorrhage, mass effect, or acute territorial infarct in this patient with encephalopathy. 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 * Mild generalized cerebral atrophy with chronic small vessel ischemic changes in the supratentorial white matter, in keeping with age-related and microvascular disease. /[place] DICTATED BY: GIANLUCA ADAN MD DATE: 06/17/251644 ELECTRONICALLY SIGNED BY: GIANLUCA ADAN MD DATE: 06/17/251644 [place] [id number] IMAGING REPORT Signed PATIENT: HUGO WYLIE MR#: [id number] : 1955 SEX: F AGE: 69 LOCATION: 2CH ORDER 2300 STATUS: ADM IN REPORT#: [id number] SERVICE 0600 REASON: PNEUMONIA ORDERING PHYSICIAN: SHMUEL DOLLCNP PROCEDURE: CXR1VW - CHEST 1VW EXAM: CR Chest, 1 View. CLINICAL HISTORY: PNEUMONIA COMPARISON: Chest radiograph dated 06/17/2025 FINDINGS: LUNGS: Interval increase in the right basilar infiltrates consistent with pneumonia. PLEURAL SPACES: No pneumothorax. Questionable right pleural effusion. MEDIASTINUM: Stable cardiomegaly with mild pulmonary vascular congestion. BONES: No aggressive appearing osseous lesion seen. IMPRESSION: 1. Right basilar infiltrates consistent with pneumonia, increased since the previous study. 2. Questionable right pleural effusion. 3. Stable cardiomegaly with mild pulmonary vascular congestion. /[place] DICTATED BY: DARREL GEORGE Jr., MD DATE: 06/18/251509 ELECTRONICALLY SIGNED BY: DARREL GEORGE Jr., MD DATE: 06/18/251509 ASSESSMENT: Acute hypoxemic respiratory failure POA Sepsis secondary to community acquired pneumonia-POA Infective endocarditis involving the aortic valve- culture negative. Aortic insufficiency due to Multiple vegetations seen on the aortic valve leafelts. (2D echo 06/09/2025) Acute CHF exacerbation with possible pulmonary edema POA Elevated troponin likely due to type 2 demand ischemia POA Acute kidney injury Acute COPD exacerbation POA Nicotine Dependence POA Acute anemia POA Acute leukocytosis POA Moderate Hyponatremia and hypochloremia POA Hyperglycemia POA Lactic acidosis POA Hyperthyroidism POA Peripheral neuropathy POA History of emphysema POA History of atrial fibrillation not on anticoagulation PLAN: Acute hypoxemic respiratory failure POA On Presentation patient's respiratory rate 30, heart rate 108, saturating 96% with2 L nasal cannula Chest x-ray showed bilateral perihilar and bibasilar airspace disease Patient on high-flow nasal cannula, continue DuoNeb q.4 Continue IV Solu-Medrol 40 mg q.12h IV Critical Care on board, we will follow the recommendations. Sepsis secondary to community acquired pneumonia-POA On presentation heart rate 108, respiratory rate 30, white count 19.7, lactic acid 3.1 Chest x-ray showed bilateral perihilar and bibasilar airspace disease CT chest showed multifocal pneumonia bilateral lungs, pulmonary vascular congestion, pulmonary edema Patient was started on norepinephrine drip on 06/16/2025 due to systolic blood pressure in 80s Discontinue linezolid IV q.12h , Continue on cefepime IV q.12h Continue doxycycline q.12h IV , metronidazole q.8 IV We will trend lactic acid Moderate Hyponatremia and hypochloremia POA On presentation sodium 122, chloride 93 Serum osmolality low at 274, urine osmolality normal, BNP 4530 Hyponatremia most likely due to fluid overload Discontinued IV Lasix 40 mg q8 Sodium today 140 Nephrology on board, we will follow the recommendations. Aortic insufficiency due to Multiple vegetations seen on the aortic valve leafelts. (2D echo 06/09/2025) 2D echocardiogram showed LVEF 50-55%, normal left ventricular diastolic function, normal right ventricular systolic function Multiple vegetations seen on aortic valve leaflets, difficulty to assess severity of aortic insufficiency, moderate mitral valve regurgitation BNP trended down to 826 today Discontinue linezolid IV q.12h , continue cefepime Continue doxycycline q.12h IV, metronidazole q.8 IV Blood culture showed no growth so far We will Request consultation from Infectious Disease GI Prophylaxis with famotidine 20 mg IV daily DVT prophylaxis from SCDs ATTESTATION BY PHYSICIAN I have seen and examined the patient. I reviewed the documentation, medical decision making, and treatment plan as noted by the resident physician above. I agree with the findings and plan of care. MIKAYLA RAINES MD, ADIL SHAH QUADRI MD Jun 18, 2025 10:29
[2025-06-18 10:35] LABS: ABG BASE EXCESS -2.5 mmol/L (-2.0-3.0); ABG HCO3 21.8 mmol/L (21.0-28.0); ABG OXYGEN SATURATION 93.7 % (94.0-98.0); ABG PCO2 36 mmHg (32-45); ABG PH 7.405 (7.350-7.450); CARBON MONOXIDE 1.4 % (0.5-1.5); DEVICE COMMENT RRROSIE; PO2, ARTERIAL BG 68.8 mmHg (83.0-108.0); TEMPERATURE, CELSIUS BG 37.0 CELSIUS (35.5-37.0); VENT MODE, BG HFNC (ROOM AIR)
--- NOTE | 2025-06-18 10:41 | PN ---
[facility] PROGRESS NOTE Date Patient Seen: Jun 18, 2025 Time of Visit: 10:38 Supervising Physician: [ Dr. Davis] Primary Care Physician: [Dr. Yoel Pierson] Outpatient Specialists: [ ] Inpatient Consults: [[facility] team-ICU ] PROBLEM LIST: Acute hypoxic respiratory failure present on admission Paroxysmal atrial fibrillation Sepsis 2/2 community acquired pneumonia Aortic valve vegetations Infective endocarditis involving the aortic valve- culture negative. Hepatic transaminitis NSTEMI-likely type II 2/2 demand ischemia from hypoxia vs. true cardiac etiology-POA- negative for chest pain or ST/T wave abnormality. HEART score 6 points=12-16.6% risk for MACE Hyperlactatemia-POA Acute multifactorial delirium Acute on chronic renal failure Acute COPD exacerbation Emphysema secondary to tobacco use disorder : 50 Pack year HX Pulmonary edema Bilateral pleural effusions Prior CVA Hyperthyroid disorder/Graves disease with right thyroid nodule INTERVAL HISTORY: Patient seen and examined, all labs and imaging reviewed. Patient with noted altered mental status yesterday. 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 Patient continues edematous. Patient on supplemental O2, currently on high-flow Patient pending HIDA scan, VICK, and MRCP (bili 7.9) Plan: Wean off Precedex and Levo. Patient pending VICK, Hida scan and MRCP. Patient has not been able to tolerate positioning for procedure. MRI for today. We will continue to follow neuro recommendation. Continue Zyvox, Cefepime, and Doxy per ID. Negative blood cultures. Continue on supplemental O2, high-flow, BiPAP at night Continue to diurese, continue Lasix Avoid nephrotoxic medications Will continue to monitor renal function and follow nephrology recommendations. We will continue to follow Cardiology recommendation. Total critical care time spent 45 minutes, this excludes any procedures performed or any time spent in educational or teaching. REVIEW OF SYSTEMS: More awake today, able to answer questions and oriented to self and place. No other major complaints reported by the patient herself and most of the information is obtained from nursing staff and medical records at bedside. PHYSICAL EXAM: Jaundice GENERAL: oriented to self and place HEENT: EOMI, Sclera non icteric, dry mucosa NECK: Supple, no JVD, trachea midline LUNGS: Grossly clear, decreased air entry without wheezing HEART: Regular rate and rhythm. Normal S1 and S2, without murmurs, tachycardia ABD: Abdomen soft, nontender. Bowel sounds present EXT: No clubbing cyanosis or edema NEURO: Awake alert to self Vital Signs (last 8hr) Date Time Temp Pulse Resp B/P (MAP) Pulse Ox O2 Delivery O2 Flow Rate FiO2 06/18/25 10:30 86 18 06/18/25 09:23 82 15 121/40 (67) 99 06/18/25 09:08 82 16 115/38 (63) 98 06/18/25 08:53 81 16 111/42 (65) 99 06/18/25 08:38 78 15 116/47 (70) 99 06/18/25 08:23 79 15 111/51 (71) 98 06/18/25 08:08 78 15 121/46 (71) 100 06/18/25 07:53 74 15 121/49 (73) 98 06/18/25 07:38 99.0 75 13 122/52 (75) 97 06/18/25 07:05 73 16 HFNC Heated System N/Can 20.0 40 06/18/25 07:00 73 16 120/48 (72) 99 06/18/25 06:45 70 15 121/58 (79) 100 06/18/25 06:43 71 22 06/18/25 06:40 71 22 40 06/18/25 06:30 71 4 116/41 (66) 100 06/18/25 06:15 73 18 118/43 (68) 98 06/18/25 06:00 72 18 127/52 (77) 100 06/18/25 05:45 75 18 122/44 (70) 100 06/18/25 05:30 75 18 112/52 (72) 98 06/18/25 05:15 72 123/40 (67) 100 06/18/25 05:00 71 15 119/56 (77) 99 06/18/25 04:45 73 17 123/43 (69) 100 06/18/25 04:30 78 18 118/45 (69) 100 06/18/25 04:15 72 19 118/55 (76) 100 06/18/25 04:04 97.5 06/18/25 04:00 75 15 121/44 (69) 100 06/18/25 04:00 99 CPAP+ 30 60 06/18/25 03:45 74 17 113/45 (67) 100 06/18/25 03:30 77 14 128/40 (69) 100 06/18/25 03:15 76 12 122/49 (73) 100 06/18/25 03:00 76 12 122/49 (73) 100 06/18/25 02:45 76 15 117/51 (73) 100 LABS: Hematology Labs: Test 06/18/25 05:15 06/17/25 04:15 Range/Units White Blood Count 19.0 H 4.8-10.8 K/uL Red Blood Count 3.47 L 4.00-5.50 MIL/uL Hemoglobin 8.4 L 12.0-16.0 g/dL Hematocrit 25.5 L 36-48 % Mean Corpuscular Volume 73.5 L 79-99 fL Mean Corpuscular Hemoglobin 24.2 L 27.0-33.0 pg Mean Corpuscular Hemoglobin Concent 32.9 32.0-36.0 g/dL Red Cell Distribution Width 20.4 H 11.0-15.5 % Platelet Count 62 #L 130-400 K/uL Mean Platelet Volume 7.5-10.5 fL Immature Granulocyte % (Auto) 0.8 0-1 % Neutrophils (%) (Auto) 94.3 H 40.0-77.0 % Lymphocytes (%) (Auto) 1.8 L 21.0-51.0 % Monocytes (%) (Auto) 3.0 3.0-13.0 % Eosinophils (%) (Auto) 0.0 0.0-8.0 % Basophils (%) (Auto) 0.1 0.0-5.0 % Neutrophils # (Auto) 17.9 H 1.8-7.7 K/uL Lymphocytes # (Auto) 0.4 L 1.0-4.8 K/uL Monocytes # (Auto) 0.6 0.1-1.0 K/uL Eosinophils # (Auto) 0.00 0.00-0.70 K/uL Basophils # (Auto) 0.02 0.00-0.20 K/uL Absolute Immature Granulocyte (auto 0.16 0-1 K/uL Nucleated Red Blood Cells 0.7 H 0.0-0.19 % Segmented Neutrophils % 99 H 40-70 % Monocytes % (Manual) 1 L 2-9 % Differential Comment MANUAL DIFFERENTIAL White Cell Morphology Comment Platelet Morphology Comment See comments Red Blood Cell Morphology See comments Chemistry Labs: Test 06/18/25 08:38 06/18/25 05:15 06/17/25 09:38 Range/Units Whole Blood Glucose 298 H 70-110 MG/DL Sodium Level 140 136-145 mmol/L Potassium Level 3.0 *L 3.5-5.1 mmol/L Chloride Level 103 101-111 mmol/L Carbon Dioxide Level 23 21-32 mmol/L Blood Urea Nitrogen 86 *H 7-18 mg/dL Creatinine 2.4 H 0.5-1.0 mg/dL Glomerular Filtration Rate Calc 21 >90 mL/min Random Glucose 296 H 70-105 mg/dL Lactic Acid Level 4.9 H 0.8-2.5 mmol/L Total Calcium 6.8 L 8.5-10.1 mg/dL Phosphorus Level 4.7 2.5-4.9 mg/dL Magnesium Level 2.00 1.80-2.40 mg/dL Total Bilirubin 7.9 H 0.2-1.0 mg/dL Aspartate Amino Transf (AST/SGOT) 64 H 10-37 U/L Alanine Aminotransferase (ALT/SGPT) 181 H 12-78 U/L Alkaline Phosphatase 97 50-136 U/L B-Type Natriuretic Peptide 826 H 0-100 pg/mL Total Protein 4.5 L 6.0-8.3 g/dL Albumin 1.9 L 3.5-5.0 g/dL Procalcitonin 0.22 0.05-0.5 ng/mL Coagulation Labs: Test 06/18/25 05:15 Range/Units Prothrombin Time 17.8 H 9.6-11.6 SEC Prothromb Time International Ratio 1.78 H 0.85-1.15 Activated Partial Thromboplast Time 41.9 H 26.3-35.5 SEC DIAGNOSTICS / RADIOLOGY RESULTS: [ ] PLAN NEURO: Minimize central acting medications as possible. Fall Precautions. Well lighted room through the day and minimize interruptions through the night to prevent acute delirium. PULMONARY: Supplemental 02 as needed Titrate Fio2 to keep Spo2 > or = 90% DuoNebs and CPT as needed IS hourly while awake for pulmonary hygiene Out of bed to chair as tolerated VAP Bundle Vent/BIPAP Settings: [ ] Driving pressure: [ ] P Plat: [ ] Static C: [ ] Static R: [ ] P/F Ratio: [ ] CARDIOVASCULAR: Follow hemodynamics. Titrate vasopressor to keep MAP >65 or systolic blood pressure >95mmHg DRIPS: [Precedex] LINES: [ ] GI & NUTRITION: Continue nutritional support Aspirations precautions Prokinetic agents and laxatives as needed KIDNEYS & ELECTROLYTES: Strict monitoring of intake and output Daily weights Avoid nephrotoxic agents Monitor electrolytes and replace as needed Goal urine output of 30mL/hr or 0.5mL/kg/hr Urine output: [ ] Fluid Balance: [ ] ENDOCRINE: Maintain blood glucose between 100-180 at all times. Insulin sliding scale for blood glucose management INFECTIOUS DISEASE: Trend temperature. Dubois-culture if febrile. Micro: [ ] Antibiotics: [Vancomycin and Cefepime ] HEMATOLOGY & COAGULATION: Monitor H&H. Keep Hgb > 7 Transfuse 1 unit of PRBC for Hgb < 7 Transfuse 1 pack of platelets of platelets < 20, 000 Watch for any signs and symptoms of bleeding SKIN: Pressure ulcer prevention per facility protocol Rehab: PT/OT Prophylaxis: GI: [Pepcid ] DVT: [Heparin] Code Status: Full Resuscitation Disposition: [ICU] SHMUEL DOLL [facility] Jun 18, 2025 10:41
--- NOTE | 2025-06-18 10:47 | HMCIMG ---
EXAM: US Retroperitoneum Complete, Renal. CLINICAL HISTORY: Acute kidney injury. TECHNIQUE: Real-time ultrasound of the retroperitoneum (complete) with image documentation. COMPARISON: A prior abdominal sonography dated 06/09/2025. FINDINGS: RIGHT KIDNEY: Measures 10.5 x 4 x 4.7 cm. No cyst, calculi, hydronephrosis, or mass visualized. No interval changes as the prior examination. LEFT KIDNEY: Measures 9.6 x 4.2 x 4.4 cm. No cyst, calculi, hydronephrosis, or mass visualized. No interval changes as the prior examination. BLADDER: Gonzalez's catheter is positioned in the bladder lumen. Unremarkable as visualized. IMPRESSION: 1. Unremarkable renal ultrasound, stable since the prior ultrasound of the abdomen dated June 09, 2025 . /[place]
--- NOTE | 2025-06-18 13:10 | NUR ---
SW followed up with pt after receiving a notification that they were interested in [facility]PO[facility], SW went to visit with pt and pt was very confused and not appropriate at this time to complete.
--- NOTE | 2025-06-18 14:11 | HMCIMG ---
EXAM: CR Chest, 1 View. CLINICAL HISTORY: PNEUMONIA COMPARISON: Chest radiograph dated 06/17/2025 FINDINGS: LUNGS: Interval increase in the right basilar infiltrates consistent with pneumonia. PLEURAL SPACES: No pneumothorax. Questionable right pleural effusion. MEDIASTINUM: Stable cardiomegaly with mild pulmonary vascular congestion. BONES: No aggressive appearing osseous lesion seen. IMPRESSION: 1. Right basilar infiltrates consistent with pneumonia, increased since the previous study. 2. Questionable right pleural effusion. 3. Stable cardiomegaly with mild pulmonary vascular congestion. /[place]
--- NOTE | 2025-06-18 15:14 | PN ---
INFECTIOUS DISEASE PROGRESS NOTE Date of Service: Jun 18, 2025 SUBJECTIVE: This 69-year-old female patient is being seen today at bedside. Patient remains in the ICU. In no distress at this time. Remains on oxygen. Patient has been weaned off Precedex and pressors. WBC of 19.0. Hemoglobin of 8.4. Patient was noted with altered mental status yesterday, CT of the head showed no evidence of acute stroke. Zyvox has been discontinued due to thrombocytopenia. She remains on cefepime and doxycycline. We will continue to follow up patient closely. PHYSICAL EXAM EYES: Anicteric. Pupils equal and reactive. HENT: No oral thrush seen, moist Oral mucosa. NECK: Supple, no JVD or thyromegaly. LUNGS: Continuous BiPAP.. CARDIOVASCULAR: S1, S2 regular. No murmur heard. ABDOMEN: Soft, non tender, bowel sounds present. CENTRAL NERVOUS SYSTEM: On Precedex.. SKIN: No rashes, no swelling. LYMPHATICS: No peripheral lymphadenopathy. MUSCULOSKELETAL: No joint swelling, erythema or tenderness. EXTREMITIES: No cyanosis or clubbing. BACK: No deformity, no pressure ulcer. GENITOURINARY: No dysuria or hematuria. Gonzalez catheter. Vital Sign (Last 12 Hours) 06/18/25 06/18/25 06/18/25 06/18/25 03:15 03:30 03:45 04:00 Pulse 76 77 74 Resp 12 14 17 B/P (MAP) 122/49 (73) 128/40 (69) 113/45 (67) Pulse Ox 100 100 100 99 O2 Delivery CPAP+ O2 Flow Rate 30 FiO2 60 06/18/25 06/18/25 06/18/25 06/18/25 04:00 04:04 04:15 04:30 Temp 97.5 Pulse 75 72 78 Resp 15 19 18 B/P (MAP) 121/44 (69) 118/55 (76) 118/45 (69) Pulse Ox 100 100 100 06/18/25 06/18/25 06/18/25 06/18/25 04:45 05:00 05:15 05:30 Pulse 73 71 72 75 Resp 17 15 18 B/P (MAP) 123/43 (69) 119/56 (77) 123/40 (67) 112/52 (72) Pulse Ox 100 99 100 98 12/5/06/18/25 06/18/25 06/18/25 05:45 06:00 06:15 06:30 Pulse 75 72 73 71 Resp 18 18 18 4 B/P (MAP) 122/44 (70) 127/52 (77) 118/43 (68) 116/41 (66) Pulse Ox 100 100 98 100 06/18/25 06/18/25 06/18/25 06/18/25 06:40 06:43 06:45 07:00 Pulse 71 71 70 73 Resp 22 22 15 16 B/P (MAP) 121/58 (79) 120/48 (72) Pulse Ox 100 99 FiO2 40 06/18/25 06/18/25 06/18/25 06/18/25 07:05 07:38 07:53 08:08 Temp 99.0 Pulse 73 75 74 78 Resp 16 13 15 15 B/P (MAP) 122/52 (75) 121/49 (73) 121/46 (71) Pulse Ox 97 98 100 O2 Delivery HFNC Heated System N/Can O2 Flow Rate 20.0 FiO2 40 06/18/25 06/18/25 06/18/25 06/18/25 08:23 08:38 08:53 09:08 Pulse 79 78 81 82 Resp 15 15 16 16 B/P (MAP) 111/51 (71) 116/47 (70) 111/42 (65) 115/38 (63) Pulse Ox 98 99 99 98 06/18/25 06/18/25 06/18/25 06/18/25 09:23 10:08 10:15 10:23 Pulse 82 84 88 Resp 15 20 16 9 B/P (MAP) 121/40 (67) 105/44 (64) 113/62 (79) Pulse Ox 99 97 96 O2 Delivery HFNC Heated System N/Can O2 Flow Rate 20.0 FiO2 40 06/18/25 06/18/25 06/18/25 06/18/25 10:30 10:38 10:53 11:08 Pulse 86 79 78 76 Resp 18 10 17 15 B/P (MAP) 122/56 (78) 130/47 (74) 115/57 (76) Pulse Ox 97 98 98 06/18/25 06/18/25 06/18/25 06/18/25 11:23 11:38 14:50 14:53 Temp 97.0 Pulse 77 78 79 Resp 18 17 18 16 B/P (MAP) 117/83 (94) 117/46 (69) Pulse Ox 97 97 O2 Delivery HFNC Heated System N/Can O2 Flow Rate 20.0 FiO2 40 Intake & Output (last 24hrs) 06/17/25 06/17/25 06/18/25 15:00 23:00 07:00 Intake Total 619.7 ml 958.1 ml 991.5 ml Output Total 900 ml 1000 ml Balance 619.7 ml 58.1 ml -8.5 ml LABS: Laboratory: Test 06/18/25 12:01 06/18/25 11:48 06/18/25 10:34 06/18/25 05:15 Range/Units Whole Blood Glucose 259 H 70-110 MG/DL Lactic Acid Level 5.9 H 0.8-2.5 mmol/L Blood Gas Specimen Type Arterial Arterial Blood pH 7.405 7.350-7.450 Arterial Blood Partial Pressure CO2 36 32-45 mmHg Arterial Blood Partial Pressure O2 68.8 L 83.0-108.0 mmHg Arterial Blood HCO3 21.8 21.0-28.0 mmol/L Arterial Blood Oxygen Saturation 93.7 L 94.0-98.0 % Arterial Blood Base Excess -2.5 L -2.0-3.0 mmol/L Hemoglobin (Blood Gas) 9.5 L 12.0-16.0 g/dL Sodium (Blood Gas) 138 136-145 MMOL/L Bedside Potassium (Blood Gas) 3.3 L 3.4-4.5 MMOL/L Bedside Chloride (Blood Gas) 104 98-107 MMOL/L Bedside Glucose (Blood Gas) 334 H 65-95 MG/DL Bedside Ionized Calcium (Blood Gas) 0.95 L 1.15-1.33 MMOL/L Bedside Lactic Acid (Blood Gas) 6.29 *H 0.36-0.75 MMOL/L Blood Gas Temperature 37.0 35.5-37.0 CELSIUS Blood Gas Flow-by 20.00 H 0.00-15.00 L/min Blood Gas Vent Mode HFNC ROOM AIR FiO2 40.0 % Blood Gas Specimen Comment RRROSIE White Blood Count 19.0 H 4.8-10.8 K/uL Red Blood Count 3.47 L 4.00-5.50 MIL/uL Hemoglobin 8.4 L 12.0-16.0 g/dL Hematocrit 25.5 L 36-48 % Mean Corpuscular Volume 73.5 L 79-99 fL Mean Corpuscular Hemoglobin 24.2 L 27.0-33.0 pg Mean Corpuscular Hemoglobin Concent 32.9 32.0-36.0 g/dL Red Cell Distribution Width 20.4 H 11.0-15.5 % Platelet Count 62 #L 130-400 K/uL Mean Platelet Volume 7.5-10.5 fL Immature Granulocyte % (Auto) 0.8 0-1 % Neutrophils (%) (Auto) 94.3 H 40.0-77.0 % Lymphocytes (%) (Auto) 1.8 L 21.0-51.0 % Monocytes (%) (Auto) 3.0 3.0-13.0 % Eosinophils (%) (Auto) 0.0 0.0-8.0 % Basophils (%) (Auto) 0.1 0.0-5.0 % Neutrophils # (Auto) 17.9 H 1.8-7.7 K/uL Lymphocytes # (Auto) 0.4 L 1.0-4.8 K/uL Monocytes # (Auto) 0.6 0.1-1.0 K/uL Eosinophils # (Auto) 0.00 0.00-0.70 K/uL Basophils # (Auto) 0.02 0.00-0.20 K/uL Absolute Immature Granulocyte (auto 0.16 0-1 K/uL Nucleated Red Blood Cells 0.7 H 0.0-0.19 % Prothrombin Time 17.8 H 9.6-11.6 SEC Prothromb Time International Ratio 1.78 H 0.85-1.15 Activated Partial Thromboplast Time 41.9 H 26.3-35.5 SEC Fibrinogen 89 *L 180-350 mg/dL Sodium Level 140 136-145 mmol/L Potassium Level 3.0 *L 3.5-5.1 mmol/L Chloride Level 103 101-111 mmol/L Carbon Dioxide Level 23 21-32 mmol/L Blood Urea Nitrogen 86 *H 7-18 mg/dL Creatinine 2.4 H 0.5-1.0 mg/dL Glomerular Filtration Rate Calc 21 >90 mL/min Random Glucose 296 H 70-105 mg/dL Total Calcium 6.8 L 8.5-10.1 mg/dL Phosphorus Level 4.7 2.5-4.9 mg/dL Magnesium Level 2.00 1.80-2.40 mg/dL Total Bilirubin 7.9 H 0.2-1.0 mg/dL Aspartate Amino Transf (AST/SGOT) 64 H 10-37 U/L Alanine Aminotransferase (ALT/SGPT) 181 H 12-78 U/L Alkaline Phosphatase 97 50-136 U/L B-Type Natriuretic Peptide 826 H 0-100 pg/mL Total Protein 4.5 L 6.0-8.3 g/dL Albumin 1.9 L 3.5-5.0 g/dL Test 06/17/25 16:21 06/17/25 12:34 06/17/25 09:38 06/17/25 04:15 Range/Units Blood Gas Respiration Rate 18.0 min. Blood Gas CPAP 10 cm H2O Vitamin D 25-Hydroxy 34.3 30.0-100.0 ng/mL Procalcitonin 0.22 0.05-0.5 ng/mL Segmented Neutrophils % 99 H 40-70 % Monocytes % (Manual) 1 L 2-9 % Differential Comment MANUAL DIFFERENTIAL White Cell Morphology Comment Platelet Morphology Comment See comments Red Blood Cell Morphology See comments ASSESSMENT: Hypoxic respiratory failure, requiring BiPAP support. Multifocal pneumonia. Aortic valve Endocarditis. Sepsis. Gemella Morbillorum bacteremia. Acute renal failure. Multifactorial encephalopathy, improving. Chronic obstructive pulmonary disease exacerbation. Chronic tobacco use. Atrial fibrillation. PLAN: Continue cefepime. Continue doxycycline. DC linezolid IV. Continue GI prophylaxis. Continue bronchodilators. Continue oxygen support Monitor renal function. Follow up with the imaging This case was reviewed and discussed with my supervising physician Dr. Liang and the above assessment and plan was formulated and agreed upon. JOSE ENRIQUE CARDENAS [facility] Jun 18, 2025 15:13
--- NOTE | 2025-06-18 15:15 | PN ---
[facility] CARDIOLOGY PROGRESS NOTE Date Patient Seen: Jun 18, 2025 Time of Visit: 15:11 Interval History: [No acute events overnight. Review of telemetry shows normal sinus rhythm PACs. Patient continues to be altered, alert and oriented x2 Physical Examination: GENERAL: [Altered] HEAD: [Normal with no signs of head trauma.] EYES: [Left pupil appears to be more dilated compared to the right.] ENT: [Hearing grossly intact, normal oropharynx.] NECK: [Supple without JVD. There is no tenderness, lymphadenopathy, or masses. No thyromegaly. Normal carotid upstrokes without bruits.] LUNGS: [Decreased breath sounds bilaterally in the bases.. CPAP in place] HEART: [Normal rate and rhythm. Normal S1 and S2 without murmurs, gallop or rub. ] VASC: [Peripheral pulses +2 bilaterally.] ABD: [Bowel sounds normal, soft, nontender, no masses, no organomegaly. No audible bruits.] : [Not examined] LYMPH: [No lymphadenopathy noted.] EXT: [No clubbing, cyanosis or edema.] SKIN: [Jaundice.] NEURO: Altered, alert and oriented x2.] Laboratory: [ ] Hematology Labs: Test 06/18/25 05:15 06/17/25 04:15 Range/Units White Blood Count 19.0 H 4.8-10.8 K/uL Red Blood Count 3.47 L 4.00-5.50 MIL/uL Hemoglobin 8.4 L 12.0-16.0 g/dL Hematocrit 25.5 L 36-48 % Mean Corpuscular Volume 73.5 L 79-99 fL Mean Corpuscular Hemoglobin 24.2 L 27.0-33.0 pg Mean Corpuscular Hemoglobin Concent 32.9 32.0-36.0 g/dL Red Cell Distribution Width 20.4 H 11.0-15.5 % Platelet Count 62 #L 130-400 K/uL Mean Platelet Volume 7.5-10.5 fL Immature Granulocyte % (Auto) 0.8 0-1 % Neutrophils (%) (Auto) 94.3 H 40.0-77.0 % Lymphocytes (%) (Auto) 1.8 L 21.0-51.0 % Monocytes (%) (Auto) 3.0 3.0-13.0 % Eosinophils (%) (Auto) 0.0 0.0-8.0 % Basophils (%) (Auto) 0.1 0.0-5.0 % Neutrophils # (Auto) 17.9 H 1.8-7.7 K/uL Lymphocytes # (Auto) 0.4 L 1.0-4.8 K/uL Monocytes # (Auto) 0.6 0.1-1.0 K/uL Eosinophils # (Auto) 0.00 0.00-0.70 K/uL Basophils # (Auto) 0.02 0.00-0.20 K/uL Absolute Immature Granulocyte (auto 0.16 0-1 K/uL Nucleated Red Blood Cells 0.7 H 0.0-0.19 % Segmented Neutrophils % 99 H 40-70 % Monocytes % (Manual) 1 L 2-9 % Differential Comment MANUAL DIFFERENTIAL White Cell Morphology Comment Platelet Morphology Comment See comments Red Blood Cell Morphology See comments Chemistry Labs: Test 06/18/25 12:01 06/18/25 11:48 06/18/25 05:15 06/17/25 09:38 Range/Units Whole Blood Glucose 259 H 70-110 MG/DL Lactic Acid Level 5.9 H 0.8-2.5 mmol/L Sodium Level 140 136-145 mmol/L Potassium Level 3.0 *L 3.5-5.1 mmol/L Chloride Level 103 101-111 mmol/L Carbon Dioxide Level 23 21-32 mmol/L Blood Urea Nitrogen 86 *H 7-18 mg/dL Creatinine 2.4 H 0.5-1.0 mg/dL Glomerular Filtration Rate Calc 21 >90 mL/min Random Glucose 296 H 70-105 mg/dL Total Calcium 6.8 L 8.5-10.1 mg/dL Phosphorus Level 4.7 2.5-4.9 mg/dL Magnesium Level 2.00 1.80-2.40 mg/dL Total Bilirubin 7.9 H 0.2-1.0 mg/dL Aspartate Amino Transf (AST/SGOT) 64 H 10-37 U/L Alanine Aminotransferase (ALT/SGPT) 181 H 12-78 U/L Alkaline Phosphatase 97 50-136 U/L B-Type Natriuretic Peptide 826 H 0-100 pg/mL Total Protein 4.5 L 6.0-8.3 g/dL Albumin 1.9 L 3.5-5.0 g/dL Vitamin D 25-Hydroxy 34.3 30.0-100.0 ng/mL Procalcitonin 0.22 0.05-0.5 ng/mL Coagulation Labs: Test 06/18/25 05:15 Range/Units Prothrombin Time 17.8 H 9.6-11.6 SEC Prothromb Time International Ratio 1.78 H 0.85-1.15 Activated Partial Thromboplast Time 41.9 H 26.3-35.5 SEC Fibrinogen 89 *L 180-350 mg/dL Diagnostics / Radiology: [Copy/Paste Echos/Imaging Report here] Impression and Plan: 1. Sepsis in the setting of multifocal pneumonia. 2. Infective endocarditis involving the aortic valve. 3. Preserved LVEF. 4. Acute delirium. ] # aortic valve endocarditis She presented with sepsis with multifocal pneumonia and was found to have aortic valve endocarditis. 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 Infectious Disease has been consulted for further management. Blood culture positive 06/08/2025 Gemella Morbillorum History of atrial fibrillation and CVA is documented in her chart on this admission. We are currently unable to obtain this history from the patient due to acute delirium. The patient continues to be altered, unable to perform VICK, leukocytosis worsening Chest x-ray has improved from with a pulmonary edema standpoint. We will continue Lasix to 40 mg IV every 8 hours. We will recommend continue to broad-spectrum antibiotics, infectious disease recommendations We have consulted with Neurology for her altered mental status, at this moment unable to perform brain CT, due to the patient's inability to remain still at risk for artifact The patient continues to be altered on exam, alert and oriented x2, given the patient's altered mental status we are deferring VICK If there is a high clinical suspicion for endocarditis, she should be treated empirically for it At this time we will defer any further invasive cardiac studies #atrial fibrillation The patient transitioned to atrial fibrillation with RVR the night of 06/11/2025, requiring amiodarone bolus and infusion Review of telemetry shows normal sinus rhythm PACs. Please keep on telemetry, monitor/replace electrolytes as needed Continue amiodarone 200 mg every 12 hours Continue Lopressor 25 mg every12 hours for rate control Continue heparin infusion for PPX, we will consider transitioning to Eliquis on discharge Due to the patient's elevated LFTs we will defer statins at this time Thank you for this consult cardiology will sign off at this time, the patient will require close cardiology follow up, 1-2 weeks after discharge with Dr. Nitin lynn MD ATTESTATION BY PHYSICIAN I have seen and examined the patient, reviewed the above documentation, participated in medical decision making, made necessary modifications, and agree with the treatment plan as documented by my mid-level provider above. MD DEREK Barajas JAMES R MD Jun 18, 2025 15:15
--- NOTE | 2025-06-18 16:39 | HMCIMG ---
EXAM: CR Chest, 1 View. CLINICAL HISTORY: RESP FAILURE COMPARISON: CR: CHEST 1VW 06/18/2025 03:49 AM [employer] FINDINGS: Right central line is seen with tip at the cavoatrial junction. Unchanged. LUNGS: Still seen right basilar infiltrates. Newly visualized left basal hazy opacification. Likely due to poor inspiratory effort in the current study. PLEURAL SPACES: No pneumothorax. Questionable right pleural effusion vs pleural thickening. MEDIASTINUM: Stable cardiomegaly with mild pulmonary vascular congestion. BONES: No aggressive appearing osseous lesion seen. Cervical fixation is still seen. IMPRESSION: 1. Right basilar infiltrates consistent with pneumonia vs congestive changes. Unchanged since the previous study. 2. Newly visualized left basal hazy opacification. Likely due to poor inspiratory effort in the current study. 3. Questionable right pleural effusion vs pleural thickening. 4. Stable cardiomegaly with bilateral vascular congestion mainly hilar. /[place]
--- NOTE | 2025-06-18 19:27 | PN ---
GASTROENTEROLOGY PROGRESS NOTE Date of Visit: Jun 18, 2025 Time of Visit: 19:26 Events / Notes: [ ] Review of Systems: CONSTITUTIONAL: No malaise or change in sensation of wellbeing. ENMT: No rhinorrhea, otorrhea, sinus pain, ear ache. CARDIOVASCULAR: No angina, palpitations, orthopnea or paroxysmal dyspnea. RESPIRATORY: No SOB. GASTROINTESTINAL: No abdominal pain, nausea, vomiting, diarrhea, hematemesis, melena or change in the patient's habitual bowel movements consistency/number. GENITOURINARY: No dysuria, hematuria or change in bladder continence. MUSCULOSKELETAL: No new muscle pain or decrease in muscular strength. No new joint swelling, redness or tenderness. SKIN: No new rash. Physical Exam: GEN: Awake, alert, oriented in person, time and place, and in no acute distress. HEENT: No sinus tenderness. Tympanic membranes were not examined. No rhinorrhea. Oral pharyngeal mucosa is pink, moist and within normal limits. Neck is supple with no cervical lymphadenopathy, thyromegaly or JVD. CHEST: Inspection, palpation and percussion of the chest were unremarkable. Lung auscultation revealed normal breath sounds bilaterally. CARDIAC: PMI is within normal limits. Heart sounds are regular. Normal S1, S2. No gallop or murmur. ABD: Soft, non-tender and not distended. No peritoneal signs on palpation. No organomegaly. Normal bowel sounds. EXT: No cyanosis or clubbing. No edema. SKIN: Intact. No rashes. JOINTS: No evidence of synovitis or acute arthritis. NEURO: Alert and oriented to name, place and person. Cranial nerve examination is unremarkable. No focal motor deficits. Normal speech. Gait is normal. Strength is normal. Vital Signs (last 8hr) Date Time Temp Pulse Resp B/P (MAP) Pulse Ox O2 Delivery O2 Flow Rate FiO2 06/18/25 18:29 89 20 HFNC Heated System N/Can 20.0 40 06/18/25 18:28 81 18 06/18/25 17:38 80 20 141/87 97 N/C High Flow System 20.0 40 06/18/25 16:38 97.9 81 17 128/75 94 N/C High Flow System 20.0 40 06/18/25 16:00 95 Hi-Flow N/C+ 30 40 06/18/25 15:38 85 17 132/49 96 N/C High Flow System 20.0 40 06/18/25 15:23 80 16 140/47 95 06/18/25 15:10 85 17 95 06/18/25 15:08 76 17 121/42 97 06/18/25 14:55 82 15 98 06/18/25 14:53 83 17 108/54 97 N/C High Flow System 20.0 40 06/18/25 14:53 16 HFNC Heated System N/Can 20.0 40 06/18/25 14:50 79 18 06/18/25 14:38 76 15 112/43 98 N/C High Flow System 20.0 40 06/18/25 14:23 80 15 124/61 97 N/C High Flow System 20.0 40 06/18/25 14:08 81 17 129/42 97 N/C High Flow System 20.0 40 06/18/25 13:53 83 29 116/49 97 N/C High Flow System 20.0 40 06/18/25 13:38 78 18 113/35 98 N/C High Flow System 20.0 40 06/18/25 13:23 80 18 110/41 97 N/C High Flow System 20.0 40 06/18/25 13:08 78 18 121/47 98 N/C High Flow System 20.0 40 06/18/25 12:53 78 18 112/59 97 N/C High Flow System 20.0 40 06/18/25 12:38 77 16 118/41 96 N/C High Flow System 20.0 40 06/18/25 12:23 79 16 121/50 97 N/C High Flow System 20.0 40 06/18/25 12:08 80 16 116/44 97 N/C High Flow System 20.0 40 06/18/25 12:00 97 Hi-Flow N/C+ 30 40 06/18/25 11:38 97.0 78 17 117/46 (69) 97 Laboratory: [ ] Laboratory: Test 06/18/25 16:40 06/18/25 16:20 06/18/25 11:48 06/18/25 10:34 Range/Units Whole Blood Glucose 215 H 70-110 MG/DL Potassium Level 2.9 *L 3.5-5.1 mmol/L Lactic Acid Level 5.9 H 0.8-2.5 mmol/L Blood Gas Specimen Type Arterial Arterial Blood pH 7.405 7.350-7.450 Arterial Blood Partial Pressure CO2 36 32-45 mmHg Arterial Blood Partial Pressure O2 68.8 L 83.0-108.0 mmHg Arterial Blood HCO3 21.8 21.0-28.0 mmol/L Arterial Blood Oxygen Saturation 93.7 L 94.0-98.0 % Arterial Blood Base Excess -2.5 L -2.0-3.0 mmol/L Hemoglobin (Blood Gas) 9.5 L 12.0-16.0 g/dL Sodium (Blood Gas) 138 136-145 MMOL/L Bedside Potassium (Blood Gas) 3.3 L 3.4-4.5 MMOL/L Bedside Chloride (Blood Gas) 104 98-107 MMOL/L Bedside Glucose (Blood Gas) 334 H 65-95 MG/DL Bedside Ionized Calcium (Blood Gas) 0.95 L 1.15-1.33 MMOL/L Bedside Lactic Acid (Blood Gas) 6.29 *H 0.36-0.75 MMOL/L Blood Gas Temperature 37.0 35.5-37.0 CELSIUS Blood Gas Flow-by 20.00 H 0.00-15.00 L/min Blood Gas Vent Mode HFNC ROOM AIR FiO2 40.0 % Blood Gas Specimen Comment RRROSIE Test 06/18/25 05:15 06/17/25 16:21 06/17/25 12:34 06/17/25 09:38 Range/Units White Blood Count 19.0 H 4.8-10.8 K/uL Red Blood Count 3.47 L 4.00-5.50 MIL/uL Hemoglobin 8.4 L 12.0-16.0 g/dL Hematocrit 25.5 L 36-48 % Mean Corpuscular Volume 73.5 L 79-99 fL Mean Corpuscular Hemoglobin 24.2 L 27.0-33.0 pg Mean Corpuscular Hemoglobin Concent 32.9 32.0-36.0 g/dL Red Cell Distribution Width 20.4 H 11.0-15.5 % Platelet Count 62 #L 130-400 K/uL Mean Platelet Volume 7.5-10.5 fL Immature Granulocyte % (Auto) 0.8 0-1 % Neutrophils (%) (Auto) 94.3 H 40.0-77.0 % Lymphocytes (%) (Auto) 1.8 L 21.0-51.0 % Monocytes (%) (Auto) 3.0 3.0-13.0 % Eosinophils (%) (Auto) 0.0 0.0-8.0 % Basophils (%) (Auto) 0.1 0.0-5.0 % Neutrophils # (Auto) 17.9 H 1.8-7.7 K/uL Lymphocytes # (Auto) 0.4 L 1.0-4.8 K/uL Monocytes # (Auto) 0.6 0.1-1.0 K/uL Eosinophils # (Auto) 0.00 0.00-0.70 K/uL Basophils # (Auto) 0.02 0.00-0.20 K/uL Absolute Immature Granulocyte (auto 0.16 0-1 K/uL Nucleated Red Blood Cells 0.7 H 0.0-0.19 % Prothrombin Time 17.8 H 9.6-11.6 SEC Prothromb Time International Ratio 1.78 H 0.85-1.15 Activated Partial Thromboplast Time 41.9 H 26.3-35.5 SEC Fibrinogen 89 *L 180-350 mg/dL Sodium Level 140 136-145 mmol/L Chloride Level 103 101-111 mmol/L Carbon Dioxide Level 23 21-32 mmol/L Blood Urea Nitrogen 86 *H 7-18 mg/dL Creatinine 2.4 H 0.5-1.0 mg/dL Glomerular Filtration Rate Calc 21 >90 mL/min Random Glucose 296 H 70-105 mg/dL Total Calcium 6.8 L 8.5-10.1 mg/dL Phosphorus Level 4.7 2.5-4.9 mg/dL Magnesium Level 2.00 1.80-2.40 mg/dL Total Bilirubin 7.9 H 0.2-1.0 mg/dL Aspartate Amino Transf (AST/SGOT) 64 H 10-37 U/L Alanine Aminotransferase (ALT/SGPT) 181 H 12-78 U/L Alkaline Phosphatase 97 50-136 U/L B-Type Natriuretic Peptide 826 H 0-100 pg/mL Total Protein 4.5 L 6.0-8.3 g/dL Albumin 1.9 L 3.5-5.0 g/dL Blood Gas Respiration Rate 18.0 min. Blood Gas CPAP 10 cm H2O Vitamin D 25-Hydroxy 34.3 30.0-100.0 ng/mL Procalcitonin 0.22 0.05-0.5 ng/mL Test 06/17/25 04:15 Range/Units Segmented Neutrophils % 99 H 40-70 % Monocytes % (Manual) 1 L 2-9 % Differential Comment MANUAL DIFFERENTIAL White Cell Morphology Comment Platelet Morphology Comment See comments Red Blood Cell Morphology See comments Current Medications Medications (Trade) Dose Ordered Sig/Rossy Route PRN Reason Start Time Stop Time Status Last Admin Dose Admin Acetaminophen (TYLenol 325MG TAB) 650 mg Q4H PRN PO MILD PAIN (1-3) 06/08/25 20:30 07/08/25 20:29 06/12/25 10:16 650 MG Acetaminophen (TYLenol 325MG TAB) 650 mg Q6H PRN PO TEMPERATURE GREATER THAN 101.5 06/08/25 20:30 07/08/25 20:29 06/12/25 20:47 650 MG Albuterol (DUOneb) 1 udvial [id number] IH 06/08/25 22:00 07/08/25 21:59 06/18/25 18:26 1 UDVIAL Amiodarone HCl (pacERONE 200MG) 200 mg BID PO 06/13/25 21:00 07/13/25 20:59 06/18/25 09:47 200 MG Amiodarone HCl 540 mg/Dextrose 300 ml @ 16.667 mls/ hr PROTOCOL IV 06/12/25 10:00 06/13/25 03:59 DC 06/12/25 11:33 16.667 MLS/HR Amiodarone HCL/ Dextrose 100 ml @ 600 mls/hr PROTOCOL IV 06/12/25 05:00 06/12/25 06:53 DC 06/12/25 05:10 600 MLS/HR Amiodarone HCL/ Dextrose 100 ml @ 0 mls/hr PROTOCOL IV 06/12/25 07:00 06/12/25 07:01 DC Amiodarone HCL/ Dextrose 200 ml @ 33.333 mls/ hr PROTOCOL IV 06/12/25 05:00 06/12/25 06:53 DC 06/12/25 05:11 33.333 MLS/HR Budesonide (Pulmicort 0.5 Mg/2ml) 0.5 mg BIDRESP 06/09/25 18:00 07/09/25 17:59 06/18/25 18:26 0.5 MG Cefepime HCl (MAXipime 1 GM vial) 1 gm Q12H IVPB 06/10/25 14:00 06/10/25 14:35 DC 06/10/25 14:23 1 GM Cefepime HCl (MAXipime 1 GM vial) 1 gm Q12H9 IVPB 06/10/25 21:00 06/24/25 13:59 06/18/25 09:44 1 GM Cefepime HCl (MAXipime 1 GM vial) 1 gm Q8H IVPB 06/10/25 09:30 06/10/25 09:41 DC Dexmedetomidine/ Sodium Chloride (PRECEdex 200MCG/ 50ML-NS) 200 mcg PROTOCOL IV 06/16/25 11:30 07/16/25 11:29 06/18/25 05:50 200 MCG Dexmedetomidine/ Sodium Chloride (PRECEdex 400MCG/ 100ML-NS) 400 mcg PROTOCOL IV 06/08/25 20:00 06/11/25 17:00 DC 06/11/25 09:27 400 MCG Dextrose (D50w) 50 ml AD PRN IV HYPOGLYCEMIA PROTOCOL 06/17/25 14:30 07/17/25 14:29 Dorzolamide/ Timolol (Cosopt Eye Drops) 1 DROP BID OP 06/09/25 21:00 07/09/25 20:59 06/18/25 09:48 1 ML Doxycycline Hyclate 250 ml @ 125 mls/hr Q12H IV 06/08/25 23:00 06/18/25 22:59 06/18/25 11:06 125 MLS/HR Enoxaparin Sodium (Lovenox (Pharmacy To Dose)) 1 unit Q24H SQ 06/15/25 14:00 06/15/25 14:01 DC Enoxaparin Sodium (Lovenox 80mg) 70 mg Q24H SQ 06/15/25 14:30 06/17/25 12:11 DC 06/16/25 14:39 70 MG Famotidine (Pepcid 20mg Vial) 20 mg DAILY IV 06/09/25 09:00 06/09/25 13:09 DC 06/09/25 08:39 20 MG Fluticasone Propionate (FLOnase 50 mcg/ spray 16g bottle) 1 SPRAY DAILY EN 06/12/25 15:00 07/12/25 14:59 06/18/25 09:46 1 SPRAYS Furosemide (LASix 20MG VIAL) 20 mg BID IVP 06/12/25 09:00 06/12/25 09:19 DC 06/12/25 08:57 20 MG Furosemide (LASix 40MG VIAL) 20 mg BID IVP 06/11/25 21:00 06/12/25 06:54 DC 06/11/25 21:26 20 MG Furosemide (LASix 40MG VIAL) 40 mg BID IVP 06/08/25 21:00 06/11/25 17:00 DC 06/11/25 09:32 40 MG Furosemide (LASix 40MG VIAL) 40 mg BID IVP 06/12/25 21:00 06/14/25 13:19 DC 06/14/25 08:24 40 MG Furosemide (LASix 40MG VIAL) 40 mg Q8H6 IVP 06/14/25 14:00 06/17/25 12:12 DC 06/17/25 05:22 40 MG Glucagon (Glucagon 1mg Kit) 1 mg AD PRN IM HYPOGLYCEMIA PROTOCOL 06/17/25 14:30 07/17/25 14:29 Heparin Sodium (Porcine) (HEParin 5,000 UNIT VIAL) *calculation based on ACTUAL B... AD PRN IV HEPARIN PROTOCOL 06/09/25 04:00 06/15/25 14:01 DC Heparin Sodium/ Dextrose 250 ml @ 0 mls/hr Q6H IV 06/09/25 04:00 06/15/25 13:58 DC 06/15/25 02:42 4.7 MLS/HR Home Med (Home Medication) (Methimazole 5MG TAB) - 0.5 TAB... DAILY PO 06/10/25 09:00 07/10/25 08:59 06/18/25 09:47 1 EACH Insulin Human Regular (humuLIN R 100 UNIT/ML 3ML) INSULIN SLIDING SCAL... ACHS SQ 06/17/25 16:30 06/18/25 10:03 DC 06/18/25 08:53 6 UNIT Insulin Human Regular (humuLIN R 100 UNIT/ML 3ML) INSULIN SLIDING SCAL... ACHS SQ 06/18/25 11:30 07/18/25 11:29 06/18/25 16:43 6 UNIT Lactulose (Constulose 20gm/ 30ml Udcup) 20 gm BID PRN PO CONSTIPATION 06/13/25 07:30 07/13/25 07:29 Latanoprost (Xalatan) 1 DROP HS OD 06/09/25 21:00 07/09/25 20:59 06/17/25 22:15 2.5 DROP Levofloxacin/ Dextrose 100 ml @ 100 mls/hr Q24H IV 06/09/25 20:00 06/08/25 22:40 DC Linezolid 300 ml @ 150 mls/hr Q12H IV 06/11/25 11:30 06/11/25 12:38 DC Linezolid 300 ml @ 150 mls/hr Q12H IV 06/11/25 14:30 06/18/25 12:55 DC 06/18/25 02:07 150 MLS/HR Magnesium Sulfate 50 ml @ 0 mls/hr PROTOCOL PRN IV MAGNESIUM PROTOCOL 06/09/25 17:00 07/09/25 16:59 06/12/25 03:21 25 MLS/HR Methylprednisolone Sodium Succinate (Solu-medROL 40MG) 40 mg Q12H9 IVP 06/12/25 21:00 07/09/25 13:29 06/18/25 09:45 40 MG Methylprednisolone Sodium Succinate (Solu-medROL 40MG) 40 mg Q8H IVP 06/09/25 13:30 06/12/25 14:11 DC 06/12/25 13:23 40 MG Metoprolol Tartrate (loprESSOR) 2.5 mg Q6H PRN IV heart rate greater than 110 06/12/25 03:30 07/12/25 03:29 Metoprolol Tartrate (loprESSOR) 25 mg BID PO 06/12/25 21:00 06/17/25 12:12 DC 06/16/25 21:24 25 MG Metronidazole/ Sodium Chloride 100 ml @ 100 mls/hr Q8H6 IVPB 06/10/25 14:00 06/20/25 13:59 06/18/25 15:36 100 MLS/HR Midodrine (PROAMatine 5 MG TABLET) 5 mg TID PO 06/10/25 14:00 06/11/25 08:52 DC 06/10/25 20:08 5 MG Midodrine (PROAMatine 5 MG TABLET) 10 mg TID PO 06/11/25 09:00 06/15/25 13:58 DC 06/14/25 21:14 10 MG Nicotine (Nicoderm) 21 mg DAILY TD 06/08/25 23:00 07/08/25 22:59 06/18/25 09:47 21 MG Norepinephrine 250 ml @ 0 mls/hr PROTOCOL IV 06/09/25 01:00 07/09/25 00:59 06/17/25 05:41 27.7 MLS/HR Olanzapine (ZyPREXA 5 mg tab) 5 mg BID PO 06/10/25 21:00 06/17/25 12:13 DC 06/16/25 21:24 5 MG Ondansetron HCl (zoFRAN 4MG INJ) 4 mg Q6H PRN IV NAUSEA/VOMITING 06/08/25 20:30 07/08/25 20:29 Oseltamivir Phosphate (Tamiflu) 75 mg BID PO 06/09/25 21:00 06/10/25 09:08 DC 06/10/25 09:03 75 MG Pantoprazole Sodium (PROTonix 40MG INJ) 40 mg DAILY IVP 06/10/25 09:00 07/10/25 08:59 06/18/25 09:45 40 MG Pharmacy Profile Note (Pharmacy Communication) 1 each ONCE MISC 06/09/25 03:00 06/09/25 03:24 DC Pharmacy Profile Note (Pharmacy Communication) 1 each ONCE MISC 06/11/25 11:30 06/11/25 11:19 DC Pharmacy Profile Note (Pharmacy Communication) 1 each ONCE MISC 06/16/25 11:00 06/16/25 11:08 DC Pharmacy Profile Note (Pharmacy Communication) 1 each ONCE MISC 06/16/25 17:00 06/16/25 17:10 DC Phytonadione (Vitamin K 10mg/ 1ml Adult Vial) 10 mg DAILY SQ 06/11/25 09:00 06/13/25 15:00 DC 06/13/25 09:24 10 MG Phytonadione (Vitamin K 10mg/ 1ml Adult Vial) 10 mg Q24H SQ 06/10/25 15:00 06/10/25 16:55 DC 06/10/25 15:11 10 MG Piperacillin Sod/ Tazobactam Sod (Zosyn 3.375gm+NS 50ml) 3.375 gm Q8H IV 06/08/25 23:00 06/10/25 09:08 DC 06/10/25 07:10 3.375 GM Potassium Chloride 100 ml @ 50 mls/hr AD PRN IV POTASSIUM PROTOCOL 06/09/25 17:00 06/11/25 06:10 DC 06/09/25 21:18 50 MLS/HR Potassium Chloride 100 ml @ 100 mls/hr AD PRN IV POTASSIUM PROTOCOL 06/09/25 17:00 07/09/25 16:59 06/18/25 16:46 100 MLS/HR Potassium Chloride 100 ml @ 100 mls/hr AD PRN IV POTASSIUM PROTOCOL 06/16/25 12:00 07/16/25 11:59 06/18/25 09:44 100 MLS/HR Potassium Chloride (K-Dur/Klor-Con 20meq) 20 meq AD PRN PO POTASSIUM PROTOCOL 06/09/25 17:00 07/09/25 16:59 Potassium Chloride (KCl 10% Elixir 20meq/15ml) 20 meq AD PRN PO POTASSIUM PROTOCOL 06/09/25 17:00 07/09/25 16:59 Sevelamer HCl (RENAgel 800 MG TAB) 400 mg TIDMEALS PO 06/17/25 12:00 06/17/25 15:36 DC Sodium Bicarbonate 150 meq/Sodium Chloride 1,150 ml @ 100 mls/hr [id number] IVP 06/09/25 12:00 06/09/25 12:29 DC Sodium Bicarbonate (Sodium Bicarbonate) 650 mg BID PO 06/13/25 11:30 06/13/25 11:58 DC Sodium Bicarbonate (Sodium Bicarbonate) 1,300 mg BID PO 06/13/25 21:00 07/13/25 20:59 06/18/25 09:46 1,300 MG Vancomycin HCl 250 ml @ 125 mls/hr Q24H IV 06/11/25 10:00 06/11/25 11:15 DC 06/11/25 09:31 125 MLS/HR Vancomycin HCl (Vancomycin Protocol) 1 each AD IV 06/10/25 09:30 06/11/25 11:15 DC Ziprasidone (Geodon) 10 mg Q6H PRN IM AGITATION/PSYCHOSIS 06/09/25 18:00 06/17/25 12:13 DC 06/11/25 17:28 10 MG Diagnostics / Radiology: [COPY/PASTE HERE IF NO REPORTS PLEASE DELETE SECTION] Assessment: Abnormal LFTs Coagulopathy Thrombocytopenia Plan: MRCP once clinically able Trend LFTs [employer] Jun 18, 2025 19:27
[2025-06-18] MEDS: CLINIMIX-E 5%AA /D15%W 2000ML 2,000 ML IV ONE (20:33)
[2025-06-18 21:16] LABS: APPEARANCE,URINE CLOUDY (CLEAR); GLUCOSE, URINE (UA) NEGATIVE (NEGATIVE); LEUKOCYTE ESTERASE ,URINE NEGATIVE Leu/uL (NEGATIVE); NITRATE,URINE NEGATIVE (NEGATIVE); OCCULT BLOOD,URINE SMALL (NEGATIVE)
[2025-06-18 21:22] LABS: ADD UA MICROSCOPIC YES
[2025-06-18 21:25] LABS: UNCLASSIFIED CRYSTAL 7 /HPF (None Seen); YEAST,URINE BUDDING MANY /HPF (None Seen)
[2025-06-18 22:12] LABS: CREATININE,URINE RANDOM 31.44 mg/dL (30-135)
[2025-06-19] VITALS (61 sets, daily range): BP systolic 101–147; BP diastolic 46–99; PULSE 72–117; RESP 13–59; TEMP 97–98.5; O2SAT 92–100
[2025-06-19 04:46] LABS: NUCLEATED RED BLOOD CELLS 0.2 % (0.0-0.19); PLATELET COUNT (AUTO) 48 K/uL (130-400); RED BLOOD CELL COUNT(AUTO) 3.77 MIL/uL (4.00-5.50); RED CELL DISTRIBUTION WIDTH 20.5 % (11.0-15.5); WHITE BLOOD COUNT (AUTO) 25.8 K/uL (4.8-10.8)
[2025-06-19 05:12] LABS: LYMPHOCYTES % (MANUAL) 1 % (22-44); MAN.DIFF COMMENT-IMPRESSION MANUAL DIFFERENTIAL; MONOCYTES % (MANUAL) 1 % (2-9); SEGMENTED NEUTROPHILS % 98 % (40-70)
[2025-06-19 05:17] LABS: ASPARTATE AMINOTRANSFERASE 51.0 U/L (10-37); CREATININE 2.1 mg/dL (0.5-1.0); GLOMERULAR FILTR. RATE CALC 25.0 mL/min (>90); GLUCOSE,RANDOM 177.0 mg/dL (70-105); PHOSPHORUS 4.3 mg/dL (2.5-4.9); SODIUM SERUM 143.0 mmol/L (136-145); TOTAL PROTEIN, SERUM 4.9 g/dL (6.0-8.3)
[2025-06-19 05:23] LABS: UREA NITROGEN, BLOOD 90.0 mg/dL (7-18)
[2025-06-19 07:10] LABS: INR 1.48 (0.85-1.15)
--- NOTE | 2025-06-19 09:59 | PN ---
[facility] PROGRESS NOTE Date Patient Seen: Jun 19, 2025 Time of Visit: 09:58 Supervising Physician: [ Dr. Ricks] Primary Care Physician: [Dr. Yoel Pierson] Outpatient Specialists: [ ] Inpatient Consults: [[facility] team-ICU ] PROBLEM LIST: Acute hypoxic respiratory failure present on admission Paroxysmal atrial fibrillation Sepsis 2/2 community acquired pneumonia Aortic valve vegetations Infective endocarditis involving the aortic valve- culture negative. Hepatic transaminitis NSTEMI-likely type II 2/2 demand ischemia from hypoxia vs. true cardiac etiology-POA- negative for chest pain or ST/T wave abnormality. HEART score 6 points=12-16.6% risk for MACE Hyperlactatemia-POA Acute multifactorial delirium Acute on chronic renal failure Acute COPD exacerbation Emphysema secondary to tobacco use disorder : 50 Pack year HX Pulmonary edema Bilateral pleural effusions Prior CVA Hyperthyroid disorder/Graves disease with right thyroid nodule INTERVAL HISTORY: Patient seen and examined, all labs and imaging reviewed. Patients mentals status has significantly improved. Bili up at 9.7 Patient off levo and precedex tolerating well. Patient continues edematous. Patient on supplemental O2, currently on high-flow Patient pending HIDA scan, VICK, and MRCP. Plan: MRCP Today Patient pending VICK, Hida. Patient has not been able to tolerate positioning for procedure. Zyvox, has been discontinued due to Thrombocytopenia DC Lovenox Patient Started on Arixtra per Hematology recommendations. Continue Cefepime, Flagyl and Doxy per ID. Negative blood cultures. Continue on supplemental O2, high-flow, BiPAP at night Continue to diurese, continue Lasix Avoid nephrotoxic medications Will continue to monitor renal function and follow nephrology recommendations. We will continue to follow Cardiology recommendation. Total critical care time spent 40 minutes, this excludes any procedures performed or any time spent in educational or teaching. REVIEW OF SYSTEMS: More awake today, able to answer questions and oriented to self and place. No other major complaints reported by the patient herself and most of the information is obtained from nursing staff and medical records at bedside. PHYSICAL EXAM: Jaundice GENERAL: oriented to self and place HEENT: EOMI, Sclera non icteric, dry mucosa NECK: Supple, no JVD, trachea midline LUNGS: Grossly clear, decreased air entry without wheezing HEART: Regular rate and rhythm. Normal S1 and S2, without murmurs, tachycardia ABD: Abdomen soft, nontender. Bowel sounds present EXT: No clubbing cyanosis or edema NEURO: Awake alert to self Vital Signs (last 8hr) Date Time Temp Pulse Resp B/P (MAP) Pulse Ox O2 Delivery O2 Flow Rate FiO2 06/19/25 09:56 97.0 06/19/25 06:50 96 18 06/19/25 06:49 97 18 40 06/19/25 04:38 95 18 127/86 (100) 93 06/19/25 04:00 97.9 06/19/25 04:00 95 CPAP+ 30 60 06/19/25 03:38 86 17 141/69 (93) 97 06/19/25 03:21 107 18 40 06/19/25 02:41 92 18 06/19/25 02:38 91 18 135/60 (85) 98 LABS: Hematology Labs: Test 06/19/25 04:14 06/18/25 05:15 Range/Units White Blood Count 25.8 #H 4.8-10.8 K/uL Red Blood Count 3.77 L 4.00-5.50 MIL/uL Hemoglobin 9.2 L 12.0-16.0 g/dL Hematocrit 26.9 L 36-48 % Mean Corpuscular Volume 71.4 L 79-99 fL Mean Corpuscular Hemoglobin 24.4 L 27.0-33.0 pg Mean Corpuscular Hemoglobin Concent 34.2 32.0-36.0 g/dL Red Cell Distribution Width 20.5 H 11.0-15.5 % Platelet Count 48 L 130-400 K/uL Mean Platelet Volume 7.5-10.5 fL Segmented Neutrophils % 98 H 40-70 % Lymphocytes % (Manual) 1 L 22-44 % Monocytes % (Manual) 1 L 2-9 % Nucleated Red Blood Cells 0.2 H 0.0-0.19 % Differential Comment MANUAL DIFFERENTIAL White Cell Morphology Comment Platelet Morphology Comment See comments Red Blood Cell Morphology See comments Immature Granulocyte % (Auto) 0.8 0-1 % Neutrophils (%) (Auto) 94.3 H 40.0-77.0 % Lymphocytes (%) (Auto) 1.8 L 21.0-51.0 % Monocytes (%) (Auto) 3.0 3.0-13.0 % Eosinophils (%) (Auto) 0.0 0.0-8.0 % Basophils (%) (Auto) 0.1 0.0-5.0 % Neutrophils # (Auto) 17.9 H 1.8-7.7 K/uL Lymphocytes # (Auto) 0.4 L 1.0-4.8 K/uL Monocytes # (Auto) 0.6 0.1-1.0 K/uL Eosinophils # (Auto) 0.00 0.00-0.70 K/uL Basophils # (Auto) 0.02 0.00-0.20 K/uL Absolute Immature Granulocyte (auto 0.16 0-1 K/uL Chemistry Labs: Test 06/19/25 06:51 06/19/25 04:14 06/18/25 05:15 Range/Units Whole Blood Glucose 174 H 70-110 MG/DL Sodium Level 143 136-145 mmol/L Potassium Level 3.1 L 3.5-5.1 mmol/L Chloride Level 104 101-111 mmol/L Carbon Dioxide Level 25 21-32 mmol/L Blood Urea Nitrogen 90 *H 7-18 mg/dL Creatinine 2.1 H 0.5-1.0 mg/dL Glomerular Filtration Rate Calc 25 >90 mL/min Random Glucose 177 H 70-105 mg/dL Lactic Acid Level 4.7 H 0.8-2.5 mmol/L Total Calcium 7.4 L 8.5-10.1 mg/dL Phosphorus Level 4.3 2.5-4.9 mg/dL Magnesium Level 2.00 1.80-2.40 mg/dL Total Bilirubin 9.7 #H 0.2-1.0 mg/dL Aspartate Amino Transf (AST/SGOT) 51 H 10-37 U/L Alanine Aminotransferase (ALT/SGPT) 148 H 12-78 U/L Alkaline Phosphatase 113 50-136 U/L Total Protein 4.9 L 6.0-8.3 g/dL Albumin 1.9 L 3.5-5.0 g/dL B-Type Natriuretic Peptide 826 H 0-100 pg/mL Coagulation Labs: Test 06/19/25 04:14 06/18/25 05:15 Range/Units Prothrombin Time 15.1 H 9.6-11.6 SEC Prothromb Time International Ratio 1.48 H 0.85-1.15 Fibrinogen 161 L 180-350 mg/dL Activated Partial Thromboplast Time 41.9 H 26.3-35.5 SEC DIAGNOSTICS / RADIOLOGY RESULTS: [ ] PLAN NEURO: Minimize central acting medications as possible. Fall Precautions. Well lighted room through the day and minimize interruptions through the night to prevent acute delirium. PULMONARY: Supplemental 02 as needed Titrate Fio2 to keep Spo2 > or = 90% DuoNebs and CPT as needed IS hourly while awake for pulmonary hygiene Out of bed to chair as tolerated VAP Bundle Vent/BIPAP Settings: [ ] Driving pressure: [ ] P Plat: [ ] Static C: [ ] Static R: [ ] P/F Ratio: [ ] CARDIOVASCULAR: Follow hemodynamics. Titrate vasopressor to keep MAP >65 or systolic blood pressure >95mmHg DRIPS: [Precedex] LINES: [ ] GI & NUTRITION: Continue nutritional support Aspirations precautions Prokinetic agents and laxatives as needed KIDNEYS & ELECTROLYTES: Strict monitoring of intake and output Daily weights Avoid nephrotoxic agents Monitor electrolytes and replace as needed Goal urine output of 30mL/hr or 0.5mL/kg/hr Urine output: [ ] Fluid Balance: [ ] ENDOCRINE: Maintain blood glucose between 100-180 at all times. Insulin sliding scale for blood glucose management INFECTIOUS DISEASE: Trend temperature. Dubois-culture if febrile. Micro: [ ] Antibiotics: [Vancomycin and Cefepime ] HEMATOLOGY & COAGULATION: Monitor H&H. Keep Hgb > 7 Transfuse 1 unit of PRBC for Hgb < 7 Transfuse 1 pack of platelets of platelets < 20, 000 Watch for any signs and symptoms of bleeding SKIN: Pressure ulcer prevention per facility protocol Rehab: PT/OT Prophylaxis: GI: [Pepcid ] DVT: [Heparin] Code Status: Full Resuscitation Disposition: [ICU] [facility] Jun 19, 2025 09:59
[2025-06-19] MEDS: FONDAPARINUX SODIUM 2.5 MG/0.5 ML SQ SCH (10:31)
[2025-06-19] MEDS: MIDAZOLAM HCL 1 MG/ML 2ML VIAL IVP ONE (12:41)
[2025-06-19] MEDS: DOXYCYCLINE 100MG+NS 250ML 250 ML IV SCH (12:57)
--- NOTE | 2025-06-19 13:01 | PN ---
INFECTIOUS DISEASE PROGRESS NOTE Date of Service: Jun 19, 2025 SUBJECTIVE: This is a 69-year-old female patient who remains on BiPAP support in the ICU. Unable to answer questions at this time and pending a MRI of the brain results. Linezolid has been discontinued due to thrombocytopenia. No fever. WBC remains elevated at 25.8 and still on Solu-Medrol. We will continue on cefepime and doxycycline. PHYSICAL EXAM EYES: Anicteric. Pupils equal and reactive. HENT: No oral thrush seen, moist Oral mucosa. NECK: Supple, no JVD or thyromegaly. LUNGS: Continuous BiPAP.. CARDIOVASCULAR: S1, S2 regular. No murmur heard. ABDOMEN: Soft, non tender, bowel sounds present. CENTRAL NERVOUS SYSTEM: On Precedex. SKIN: No rashes, no swelling. LYMPHATICS: No peripheral lymphadenopathy. MUSCULOSKELETAL: No joint swelling, erythema or tenderness. EXTREMITIES: No cyanosis or clubbing. BACK: No deformity, no pressure ulcer. GENITOURINARY: No dysuria or hematuria. Gonzalez catheter. Vital Sign (Last 12 Hours) 06/19/25 06/19/25 06/19/25 06/19/25 01:38 02:38 02:41 03:21 Pulse 98 91 92 107 Resp 18 18 18 18 B/P (MAP) 131/49 (76) 135/60 (85) Pulse Ox 98 98 FiO2 40 06/19/25 06/19/25 06/19/25 06/19/25 03:38 04:00 04:00 04:38 Temp 97.9 Pulse 86 95 Resp 17 18 B/P (MAP) 141/69 (93) 127/86 (100) Pulse Ox 97 95 93 O2 Delivery CPAP+ O2 Flow Rate 30 FiO2 60 06/19/25 06/19/25 06/19/25 06/19/25 06:49 06:50 07:00 07:15 Pulse 97 96 109 82 Resp 18 18 16 13 Pulse Ox 95 93 FiO2 40 06/19/25 06/19/25 06/19/25 06/19/25 07:30 07:38 07:45 08:00 Pulse 90 91 107 94 Resp 15 14 14 14 B/P (MAP) 127/69 Pulse Ox 93 94 93 93 O2 Delivery N/C High Flow System O2 Flow Rate 20.0 FiO2 40 1206/19/25 06/19/25 06/19/25 08:00 08:15 08:30 08:38 Pulse 110 92 93 Resp 14 14 14 B/P (MAP) 120/60 Pulse Ox 95 94 92 92 O2 Delivery Hi-Flow N/C+ O2 Flow Rate 30 FiO2 60 06/19/25 06/19/25 06/19/25 06/19/25 08:45 09:00 09:15 09:30 Pulse 108 106 91 93 Resp 18 15 16 16 Pulse Ox 95 95 96 95 06/19/25 06/19/25 09:38 09:56 Temp 97.0 Pulse 106 Resp 16 B/P (MAP) 132/53 Pulse Ox 95 O2 Delivery N/C High Flow System O2 Flow Rate 20.0 FiO2 40 Intake & Output (last 24hrs) 06/18/25 06/18/25 06/19/25 15:00 23:00 07:00 Intake Total 852.6 ml 1236.0 ml 252.0 ml Output Total 800 ml 750 ml Balance 852.6 ml 436.0 ml -498.0 ml LABS: Laboratory: Test 06/19/25 12:24 06/19/25 10:14 06/19/25 04:14 06/18/25 19:30 Range/Units Whole Blood Glucose 156 H 70-110 MG/DL Lactic Acid Level 4.7 H 0.8-2.5 mmol/L Ammonia < 10 L 11-32 umol/L C-Reactive Protein, Quantitative 9.30 H 0.5-3.0 mg/L B-Type Natriuretic Peptide 1790 H 0-100 pg/mL White Blood Count 25.8 #H 4.8-10.8 K/uL Red Blood Count 3.77 L 4.00-5.50 MIL/uL Hemoglobin 9.2 L 12.0-16.0 g/dL Hematocrit 26.9 L 36-48 % Mean Corpuscular Volume 71.4 L 79-99 fL Mean Corpuscular Hemoglobin 24.4 L 27.0-33.0 pg Mean Corpuscular Hemoglobin Concent 34.2 32.0-36.0 g/dL Red Cell Distribution Width 20.5 H 11.0-15.5 % Platelet Count 48 L 130-400 K/uL Mean Platelet Volume 7.5-10.5 fL Segmented Neutrophils % 98 H 40-70 % Lymphocytes % (Manual) 1 L 22-44 % Monocytes % (Manual) 1 L 2-9 % Nucleated Red Blood Cells 0.2 H 0.0-0.19 % Differential Comment MANUAL DIFFERENTIAL White Cell Morphology Comment Platelet Morphology Comment See comments Red Blood Cell Morphology See comments Prothrombin Time 15.1 H 9.6-11.6 SEC Prothromb Time International Ratio 1.48 H 0.85-1.15 Fibrinogen 161 L 180-350 mg/dL Sodium Level 143 136-145 mmol/L Potassium Level 3.1 L 3.5-5.1 mmol/L Chloride Level 104 101-111 mmol/L Carbon Dioxide Level 25 21-32 mmol/L Blood Urea Nitrogen 90 *H 7-18 mg/dL Creatinine 2.1 H 0.5-1.0 mg/dL Glomerular Filtration Rate Calc 25 >90 mL/min Random Glucose 177 H 70-105 mg/dL Total Calcium 7.4 L 8.5-10.1 mg/dL Phosphorus Level 4.3 2.5-4.9 mg/dL Magnesium Level 2.00 1.80-2.40 mg/dL Total Bilirubin 9.7 #H 0.2-1.0 mg/dL Aspartate Amino Transf (AST/SGOT) 51 H 10-37 U/L Alanine Aminotransferase (ALT/SGPT) 148 H 12-78 U/L Alkaline Phosphatase 113 50-136 U/L Total Protein 4.9 L 6.0-8.3 g/dL Albumin 1.9 L 3.5-5.0 g/dL Urine Color YELLOW YELLOW Urine Appearance CLOUDY H CLEAR Urine pH 6.0 5.0-8.0 Urine Specific [place] 1.014 1.001-1.031 Urine Protein 20 H NEGATIVE mg/dL Urine Glucose (UA) NEGATIVE NEGATIVE mg/dL Urine Ketones NEGATIVE NEGATIVE mg/dL Urine Occult Blood SMALL H NEGATIVE Urine Nitrate NEGATIVE NEGATIVE Urine Bilirubin NEGATIVE NEGATIVE mg/dL Urine Urobilinogen 0.2 0.2-1.0 mg/dL Urine Leukocyte Esterase NEGATIVE NEGATIVE Parker/uL Urine RBC 6-10 H 0-1 /HPF Urine WBC 11-25 H 0-1 /HPF Urine Other Crystals (Auto) 7 None Seen /HPF Urine Bacteria None None Seen /HPF Urine Yeast MANY None Seen /HPF Urine Random Creatinine 31.44 30-135 mg/dL Urine Random Sodium 16 L 40-220 mmol/l Urine Random Potassium 33 25-125 mmol/L Urine Random Chloride 43 L 110-250 mmol/L Test 06/18/25 10:34 06/18/25 05:15 06/17/25 16:21 Range/Units Blood Gas Specimen Type Arterial Arterial Blood pH 7.405 7.350-7.450 Arterial Blood Partial Pressure CO2 36 32-45 mmHg Arterial Blood Partial Pressure O2 68.8 L 83.0-108.0 mmHg Arterial Blood HCO3 21.8 21.0-28.0 mmol/L Arterial Blood Oxygen Saturation 93.7 L 94.0-98.0 % Arterial Blood Base Excess -2.5 L -2.0-3.0 mmol/L Hemoglobin (Blood Gas) 9.5 L 12.0-16.0 g/dL Sodium (Blood Gas) 138 136-145 MMOL/L Bedside Potassium (Blood Gas) 3.3 L 3.4-4.5 MMOL/L Bedside Chloride (Blood Gas) 104 98-107 MMOL/L Bedside Glucose (Blood Gas) 334 H 65-95 MG/DL Bedside Ionized Calcium (Blood Gas) 0.95 L 1.15-1.33 MMOL/L Bedside Lactic Acid (Blood Gas) 6.29 *H 0.36-0.75 MMOL/L Blood Gas Temperature 37.0 35.5-37.0 CELSIUS Blood Gas Flow-by 20.00 H 0.00-15.00 L/min Blood Gas Vent Mode HFNC ROOM AIR FiO2 40.0 % Blood Gas Specimen Comment RRROSIE Immature Granulocyte % (Auto) 0.8 0-1 % Neutrophils (%) (Auto) 94.3 H 40.0-77.0 % Lymphocytes (%) (Auto) 1.8 L 21.0-51.0 % Monocytes (%) (Auto) 3.0 3.0-13.0 % Eosinophils (%) (Auto) 0.0 0.0-8.0 % Basophils (%) (Auto) 0.1 0.0-5.0 % Neutrophils # (Auto) 17.9 H 1.8-7.7 K/uL Lymphocytes # (Auto) 0.4 L 1.0-4.8 K/uL Monocytes # (Auto) 0.6 0.1-1.0 K/uL Eosinophils # (Auto) 0.00 0.00-0.70 K/uL Basophils # (Auto) 0.02 0.00-0.20 K/uL Absolute Immature Granulocyte (auto 0.16 0-1 K/uL Activated Partial Thromboplast Time 41.9 H 26.3-35.5 SEC Blood Gas Respiration Rate 18.0 min. ASSESSMENT: Hypoxic respiratory failure, requiring BiPAP support. Multifocal pneumonia. Aortic valve Endocarditis. Sepsis. Gemella Morbillorum bacteremia. Leukocytosis. Acute renal failure. Multifactorial encephalopathy. Chronic obstructive pulmonary disease exacerbation. Chronic tobacco use. Atrial fibrillation. Thrombocytopenia. PLAN: Continue cefepime. Continue doxycycline. Linezolid has been discontinued due to thrombocytopenia. Continue GI prophylaxis. Continue bronchodilators. Continue oxygen support Monitor renal function. Pending brain MRI results. This case was reviewed and discussed with my supervising physician Dr. Liang and the above assessment and plan was formulated and agreed upon. ATTESTATION BY PHYSICIAN I have seen and examined the patient. I reviewed the documentation, medical decision making, and treatment plan as noted by the mid-level provider above. I agree with the findings and plan of care. RIKY LIANG MD, [facility] Jun 19, 2025 13:01
--- NOTE | 2025-06-19 13:50 | CONS ---
CONSULT NOTE: Ms. Jang is a 69-year-old female with a past medical history of emphysema, atrial fibrillation, and hyperthyroidism who was admitted on June 08 and consulted for altered mental status approximately one week after admission. She initially presented with 3 weeks of generalized weakness and was diagnosed with acute congestive heart failure exacerbation and COPD exacerbation, for which she was treated with prednisone. During her hospitalization, she developed aortic in sufficiency due to multiple vegetations and was diagnosed with endocarditis, requiring treatment with cefepime, vancomycin, and doxycycline. She also required norepinephrine drip support. The patient experienced significant altered mental status during her hospitalization, described as being "out of place," constantly screaming, and very confused. However, at the time of this consultation, her mental status had markedly improved - she was able to follow commands and accurately state her location. She denied having any headaches or neck stiffness when questioned directly. Medical History - Emphysema - Atrial fibrillation - Hyperthyroidism - Aortic insufficiency - Endocarditis with multiple aortic valve vegetations - Chronic right occipital temporal embolic stroke - Acute congestive heart failure exacerbation - COPD exacerbation Medications and Supplements - Prednisone - Norepinephrine drip - Cefepime - Vancomycin - Doxycycline - Levo (levophed/norepinephrine) - Attempts to wean cause blood pressure to drop Social History - Substance Use: Current smoker, one pack per day REVIEW OF SYSTEMS CONSTITUTIONAL: Denies fever, chills, or fatigue. HEAD/FACE: No signs of trauma. EENT: Denies eye pain, blurred vision, double vision, or light sensitivity. RESPIRATORY: Denies shortness of breath, cough, wheezing CARDIOVASCULAR: Denies chest pain, palpitation, syncope GASTROINTESTINAL/ABDOMINAL: Denies abdominal pain, constipation, diarrhea, nausea or vomiting GENITOURINARY: Denies dysuria or hematuria. MUSCULOSKELETAL: Denies joint pain, tenderness, or trauma. INTEGUMENTARY: Denies rash or itchiness NEUROLOGICAL/PSYCH: Denies anxiety, depression, heat or cold intolerance. PAST MEDICAL HISTORY: as above PAST SURGICAL HISTORY: as above PAST SOCIAL HISTORY: none FAMILY HISTORY: unremarkable Coded Allergies: No Known Drug Allergies (Unverified Allergy, Unknown, 06/08/25) PHYSICAL EXAM EYES: Anicteric. Pupils equal and reactive. HENT: No oral thrush seen, moist Oral mucosa NECK: Supple, no JVD or thyromegaly. LUNGS: Good air entry. No rales, no rhonchi. CARDIOVASCULAR: S1, S2 regular. No murmur heard. ABDOMEN: Soft, non tender, bowel sounds present, no organomegaly CENTRAL NERVOUS SYSTEM: Awake, alert, oriented x 3. No focal deficits. SKIN: No rashes, no swelling. LYMPHATICS: No peripheral lymphadenopathy MUSCULOSKELETAL: No joint swelling, erythema or tenderness. EXTREMITIES: No cyanosis or clubbing BACK: No deformity, no pressure ulcer. GENITOURINARY: No dysuria or hematuria Assessment 1. Anemia 2. Thrombocytopenia 3. Leukocytosis 4. Change mental status 5. Chronic renal insufficiency 6. COPD 7. Endocarditis with aortic valve vegetation 8. Right occipital temporal embolic stroke Plan 1. Peripheral blood smear showed red blood cells to be normocytic normochromic. There was no fragment cell or schistocyte. There is no teardrop cell. There is no rouleaux phenomena. There is no pelger-Huet cell. White blood cell with no blasts. There is decreased number of the platelet. There is no clumping of the platelet. There is large platelet consistent with peripheral consumption. This patient received heparin and Lovenox in the past with the patient could have heparin-induced thrombocytopenia. This patient also could have DIC. With the patient also receiving fresh frozen plasma and fibrinogen level now become more than 100. 2. Please do not transfuse any platelet 3. Will ask for HIT antibodies 4. This patient to be started on Arixtra 2.5 mg subcu daily 5. Will ask for CBC, fibrinogen level and Chem-7 to be done in the morning 6. Continue care as per primary 2. There was hypersegmented neutrophils. This patient to be started on folic acid 1 mg p.o. daily and vitamin B12 1000 mcg p.o. daily. KRISTEN GO MD Jun 19, 2025 13:50
--- NOTE | 2025-06-19 14:01 | HMCIMG ---
STUDY MR Cholangiopancreatography CLINICAL HISTORY Not stated. TECHNIQUE Multiplanar MR cholangiopancreatography performed without intravenous contrast using customized heavily T2-weighted pulse sequences, with additional standard abdominal MR sequences. COMPARISON Breast sonography report (date not specified), which described hepatomegaly and gallbladder wall thickening with minimal pericholecystic collection, and suggested underlying congestive heart failure with right pleural effusion and recommendation for 2D echocardiographic correlation. FINDINGS LIVER Mild fatty liver changes are present. No focal hepatic lesion is identified. BILIARY TREE AND GALLBLADDER Intrahepatic and extrahepatic bile ducts are normal in caliber without filling defect to suggest choledocholithiasis or obstructing stricture. Gallbladder is moderately distended, filled with hypointense bile/early sludge, with diffuse wall thickening measuring up to approximately 7.9 mm. No discrete intraluminal gallstone is identified on this MRCP. Appearance of diffuse gallbladder wall thickening in the setting of systemic volume overload is compatible with congestive/edematous gallbladder wall change. PANCREAS Pancreatic parenchymal signal is normal. No pancreatic mass, peripancreatic fluid, or ductal dilatation. SPLEEN Normal in size and configuration. ADRENALS Normal bilaterally without mass. KIDNEYS Normal in size and configuration. No hydronephrosis, nephrolithiasis, or dominant renal mass. RETROPERITONEUM No retroperitoneal mass or lymphadenopathy. AORTA AND VESSELS Visualized abdominal aorta is normal in caliber and contour without aneurysm or significant stenosis. BOWEL AND MESENTERY No bowel dilatation or focal mural thickening. No free or loculated intraperitoneal fluid. No mesenteric stranding or lymphadenopathy. ABDOMINAL WALL Diffuse soft tissue edema compatible with anasarca. LUNG BASES AND THORAX (LIMITED FIELD) Cardiomegaly is present. Bilateral pleural effusions are noted, with right effusion measuring up to approximately 4.8 cm in thickness and left effusion up to approximately 5.0 cm. Visualized bilateral lower lobes demonstrate imaging features of cardiogenic pulmonary edema. BONES No acute or aggressive osseous lesion. IMPRESSION * Cardiomegaly with bilateral pleural effusions and cardiogenic pulmonary edema, diffuse anasarca, fatty liver, and a moderately distended gallbladder with marked diffuse wall thickening and sludge, collectively most consistent with systemic venous congestion and congestive hepatobiliary change in the setting of suspected heart failure; correlation with clinical status and echocardiography is advised if not already performed. * MRCP otherwise demonstrates a normal-caliber biliary and pancreatic ductal system without evidence of choledocholithiasis or obstructing biliary lesion. /[place]
--- NOTE | 2025-06-19 14:31 | PN ---
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 She continues to require supplemental oxygen and BiPAP at night. Pending ERCP scan and VICK, patient unable to tolerate positioning She remains on Lasix, 40 mg IV [id number], Urine output was noted She continues on antibiotics as per ID She has had acute on chronic renal failure while in the hospital. Creatinine has been elevated in the patient is being seen as a follow up visit for all the above Renal function remains elevated Electrolytes are noted, potassium replacement has been noted Hematology workup is ongoing for DIC She was seen in the ICU Family at the bedside Prognosis remains guarded REVIEW OF SYSTEMS: GENERAL: Positive for shortness of breath NEUROLOGIC: Negative for any blurry vision, blind spots, double vision, facial asymmetry, dysphagia, dysarthria, hemiparesis, hemisensory deficits, vertigo, ataxia. HEENT: Negative for any head trauma, neck trauma, neck stiffness, photophobia, phonophobia, sinusitis, rhinitis. CARDIAC: Negative for any chest pain, dyspnea on exertion, paroxysmal nocturnal dyspnea, peripheral edema. PULMONARY: Negative for any shortness of breath, wheezing, COPD, or TB exposure. GASTROINTESTINAL: Negative for any abdominal pain, nausea, vomiting, bright red blood per rectum, melena. GENITOURINARY: Negative for any dysuria, hematuria, incontinence. INTEGUMENTARY: Negative for any rashes, cuts, insect bites. RHEUMATOLOGIC: Negative for any joint pains, photosensitive rashes, history of vasculitis or kidney problems. HEMATOLOGIC: Negative for any abnormal bruising, frequent infections or bleeding. Vital Signs (last 8hr) Date Time Temp Pulse Resp B/P (MAP) Pulse Ox O2 Delivery O2 Flow Rate FiO2 06/19/25 14:15 112 147/53 06/19/25 14:00 114 15 147/53 99 Nasal Cannula 5.0 06/19/25 13:00 96 15 129/54 99 Nasal Cannula 5.0 06/19/25 12:00 97.2 99 13 138/66 97 Nasal Cannula 5.0 06/19/25 12:00 95 Nasal Cannula* 5 40 06/19/25 11:00 85 16 137/51 100 Nasal Cannula 5.0 06/19/25 09:56 97.0 06/19/25 09:38 106 16 132/53 95 N/C High Flow System 20.0 40 06/19/25 09:30 93 16 95 06/19/25 09:15 91 16 96 06/19/25 09:00 106 15 95 06/19/25 08:45 108 18 95 06/19/25 08:38 93 14 120/60 92 06/19/25 08:30 92 14 92 06/19/25 08:15 110 14 94 06/19/25 08:00 95 Hi-Flow N/C+ 30 60 06/19/25 08:00 94 14 93 06/19/25 07:45 107 14 93 06/19/25 07:38 91 14 127/69 94 N/C High Flow System 20.0 40 06/19/25 07:30 90 15 93 06/19/25 07:15 82 13 93 06/19/25 07:00 109 16 95 06/19/25 06:50 96 18 06/19/25 06:49 97 18 40 PHYSICAL EXAM: GENERAL: Alert and oriented x 3. No acute distress. Well-nourished. EYES: EOMI. Anicteric. HENT: Moist mucous membranes. No scleral icterus. No cervical lymphadenopathy. LUNGS: Clear to auscultation bilaterally. No accessory muscle use. CARDIOVASCULAR: Regular rate and rhythm. No murmur. No JVD. ABDOMEN: Soft, non-tender and non-distended. No palpable masses. EXTREMITIES: No edema. Non-tender. SKIN: No rashes or lesions. Warm. NEUROLOGIC: No focal neurological deficits. CN II-XII grossly intact, but not individually tested. PSYCHIATRIC: Cooperative. Appropriate mood and affect. Current Medications Medications (Trade) Dose Ordered Sig/Rossy Route Start Time Stop Time Status Last Admin Dose Admin Albuterol (DUOneb) 1 udvial [id number] IH 06/08/25 22:00 07/08/25 21:59 06/18/25 06:38 1 UDVIAL Amiodarone HCl (pacERONE 200MG) 200 mg BID PO 06/13/25 21:00 07/13/25 20:59 06/17/25 21:39 200 MG Amiodarone HCl 540 mg/Dextrose 300 ml @ 16.667 mls/ hr PROTOCOL IV 06/12/25 10:00 06/13/25 03:59 DC 06/12/25 11:33 16.667 MLS/HR Amiodarone HCL/ Dextrose 100 ml @ 600 mls/hr PROTOCOL IV 06/12/25 05:00 06/12/25 06:53 DC 06/12/25 05:10 600 MLS/HR Amiodarone HCL/ Dextrose 100 ml @ 0 mls/hr PROTOCOL IV 06/12/25 07:00 06/12/25 07:01 DC Amiodarone HCL/ Dextrose 200 ml @ 33.333 mls/ hr PROTOCOL IV 06/12/25 05:00 06/12/25 06:53 DC 06/12/25 05:11 33.333 MLS/HR Budesonide (Pulmicort 0.5 Mg/2ml) 0.5 mg BIDRESP IH 06/09/25 18:00 07/09/25 17:59 06/18/25 06:38 0.5 MG Cefepime HCl (MAXipime 1 GM vial) 1 gm Q12H IVPB 06/10/25 14:00 06/10/25 14:35 DC 06/10/25 14:23 1 GM Cefepime HCl (MAXipime 1 GM vial) 1 gm Q12H9 IVPB 06/10/25 21:00 06/24/25 13:59 06/17/25 21:38 1 GM Cefepime HCl (MAXipime 1 GM vial) 1 gm Q8H IVPB 06/10/25 09:30 06/10/25 09:41 DC Dexmedetomidine/ Sodium Chloride (PRECEdex 200MCG/ 50ML-NS) 200 mcg PROTOCOL IV 06/16/25 11:30 07/16/25 11:29 06/18/25 05:50 200 MCG Dexmedetomidine/ Sodium Chloride (PRECEdex 400MCG/ 100ML-NS) 400 mcg PROTOCOL IV 06/08/25 20:00 06/11/25 17:00 DC 06/11/25 09:27 400 MCG Dorzolamide/ Timolol (Cosopt Eye Drops) 1 DROP BID OP 06/09/25 21:00 07/09/25 20:59 06/17/25 21:41 1 ML Doxycycline Hyclate 250 ml @ 125 mls/hr Q12H IV 06/08/25 23:00 06/18/25 22:59 06/17/25 21:38 125 MLS/HR Enoxaparin Sodium (Lovenox (Pharmacy To Dose)) 1 unit Q24H SQ 06/15/25 14:00 06/15/25 14:01 DC Enoxaparin Sodium (Lovenox 80mg) 70 mg Q24H SQ 06/15/25 14:30 06/17/25 12:11 DC 06/16/25 14:39 70 MG Famotidine (Pepcid 20mg Vial) 20 mg DAILY IV 06/09/25 09:00 06/09/25 13:09 DC 06/09/25 08:39 20 MG Fluticasone Propionate (FLOnase 50 mcg/ spray 16g bottle) 1 SPRAY DAILY EN 06/12/25 15:00 07/12/25 14:59 06/16/25 08:23 1 SPRAYS Furosemide (LASix 20MG VIAL) 20 mg BID IVP 06/12/25 09:00 06/12/25 09:19 DC 06/12/25 08:57 20 MG Furosemide (LASix 40MG VIAL) 20 mg BID IVP 06/11/25 21:00 06/12/25 06:54 DC 06/11/25 21:26 20 MG Furosemide (LASix 40MG VIAL) 40 mg BID IVP 06/08/25 21:00 06/11/25 17:00 DC 06/11/25 09:32 40 MG Furosemide (LASix 40MG VIAL) 40 mg BID IVP 06/12/25 21:00 06/14/25 13:19 CT 06/14/25 08:24 40 MG Furosemide (LASix 40MG VIAL) 40 mg Q8H6 IVP 06/14/25 14:00 06/17/25 12:12 DC 06/17/25 05:22 40 MG Heparin Sodium/ Dextrose 250 ml @ 0 mls/hr Q6H IV 06/09/25 04:00 06/15/25 13:58 DC 06/15/25 02:42 4.7 MLS/HR Home Med (Home Medication) (Methimazole 5MG TAB) - 0.5 TAB... DAILY PO 06/10/25 09:00 07/10/25 08:59 06/16/25 08:23 1 EACH Insulin Human Regular (humuLIN R 100 UNIT/ML 3ML) INSULIN SLIDING SCAL... ACHS SQ 06/17/25 16:30 07/17/25 16:29 06/18/25 08:53 6 UNIT Latanoprost (Xalatan) 1 DROP HS OD 06/09/25 21:00 07/09/25 20:59 06/17/25 22:15 2.5 DROP Levofloxacin/ Dextrose 100 ml @ 100 mls/hr Q24H IV 06/09/25 20:00 06/08/25 22:40 DC Linezolid 300 ml @ 150 mls/hr Q12H IV 06/11/25 11:30 06/11/25 12:38 DC Linezolid 300 ml @ 150 mls/hr Q12H IV 06/11/25 14:30 06/21/25 14:29 06/18/25 02:07 150 MLS/HR Methylprednisolone Sodium Succinate (Solu-medROL 40MG) 40 mg Q12H9 IVP 06/12/25 21:00 07/09/25 13:29 06/17/25 21:38 40 MG Methylprednisolone Sodium Succinate (Solu-medROL 40MG) 40 mg Q8H IVP 06/09/25 13:30 06/12/25 14:11 DC 06/12/25 13:23 40 MG Metoprolol Tartrate (loprESSOR) 25 mg BID PO 06/12/25 21:00 06/17/25 12:12 DC 06/16/25 21:24 25 MG Metronidazole/ Sodium Chloride 100 ml @ 100 mls/hr Q8H6 IVPB 06/10/25 14:00 06/20/25 13:59 06/18/25 05:50 100 MLS/HR Midodrine (PROAMatine 5 MG TABLET) 5 mg TID PO 06/10/25 14:00 06/11/25 08:52 DC 06/10/25 20:08 5 MG Midodrine (PROAMatine 5 MG TABLET) 10 mg TID PO 06/11/25 09:00 06/15/25 13:58 DC 06/14/25 21:14 10 MG Nicotine (Nicoderm) 21 mg DAILY TD 06/08/25 23:00 07/08/25 22:59 06/17/25 12:58 21 MG Norepinephrine 250 ml @ 0 mls/hr PROTOCOL IV 06/09/25 01:00 07/09/25 00:59 06/17/25 05:41 27.7 MLS/HR Olanzapine (ZyPREXA 5 mg tab) 5 mg BID PO 06/10/25 21:00 06/17/25 12:13 DC 06/16/25 21:24 5 MG Oseltamivir Phosphate (Tamiflu) 75 mg BID PO 06/09/25 21:00 06/10/25 09:08 DC 06/10/25 09:03 75 MG Pantoprazole Sodium (PROTonix 40MG INJ) 40 mg DAILY IVP 06/10/25 09:00 07/10/25 08:59 06/17/25 12:58 40 MG Pharmacy Profile Note (Pharmacy Communication) 1 each ONCE MISC 06/09/25 03:00 06/09/25 03:24 DC Pharmacy Profile Note (Pharmacy Communication) 1 each ONCE MISC 06/11/25 11:30 06/11/25 11:19 DC Pharmacy Profile Note (Pharmacy Communication) 1 each ONCE MISC 06/16/25 11:00 06/16/25 11:08 DC Pharmacy Profile Note (Pharmacy Communication) 1 each ONCE MISC 06/16/25 17:00 06/16/25 17:10 DC Phytonadione (Vitamin K 10mg/ 1ml Adult Vial) 10 mg DAILY SQ 06/11/25 09:00 06/13/25 15:00 DC 06/13/25 09:24 10 MG Phytonadione (Vitamin K 10mg/ 1ml Adult Vial) 10 mg Q24H SQ 06/10/25 15:00 06/10/25 16:55 DC 06/10/25 15:11 10 MG Piperacillin Sod/ Tazobactam Sod (Zosyn 3.375gm+NS 50ml) 3.375 gm Q8H IV 06/08/25 23:00 06/10/25 09:08 DC 06/10/25 07:10 3.375 GM Sevelamer HCl (RENAgel 800 MG TAB) 400 mg TIDMEALS PO 06/17/25 12:00 06/17/25 15:36 DC Sodium Bicarbonate 150 meq/Sodium Chloride 1,150 ml @ 100 mls/hr [id number] IVP 06/09/25 12:00 06/09/25 12:29 DC Sodium Bicarbonate (Sodium Bicarbonate) 650 mg BID PO 06/13/25 11:30 06/13/25 11:58 DC Sodium Bicarbonate (Sodium Bicarbonate) 1,300 mg BID PO 06/13/25 21:00 07/13/25 20:59 06/17/25 21:39 1,300 MG Vancomycin HCl 250 ml @ 125 mls/hr Q24H IV 06/11/25 10:00 06/11/25 11:15 DC 06/11/25 09:31 125 MLS/HR Vancomycin HCl (Vancomycin Protocol) 1 each AD IV 06/10/25 09:30 06/11/25 11:15 DC LABORATORY: [ ] Hematology Labs: Test 06/19/25 04:14 06/18/25 05:15 Range/Units White Blood Count 25.8 #H 4.8-10.8 K/uL Red Blood Count 3.77 L 4.00-5.50 MIL/uL Hemoglobin 9.2 L 12.0-16.0 g/dL Hematocrit 26.9 L 36-48 % Mean Corpuscular Volume 71.4 L 79-99 fL Mean Corpuscular Hemoglobin 24.4 L 27.0-33.0 pg Mean Corpuscular Hemoglobin Concent 34.2 32.0-36.0 g/dL Red Cell Distribution Width 20.5 H 11.0-15.5 % Platelet Count 48 L 130-400 K/uL Mean Platelet Volume 7.5-10.5 fL Segmented Neutrophils % 98 H 40-70 % Lymphocytes % (Manual) 1 L 22-44 % Monocytes % (Manual) 1 L 2-9 % Nucleated Red Blood Cells 0.2 H 0.0-0.19 % Differential Comment MANUAL DIFFERENTIAL White Cell Morphology Comment Platelet Morphology Comment See comments Red Blood Cell Morphology See comments Immature Granulocyte % (Auto) 0.8 0-1 % Neutrophils (%) (Auto) 94.3 H 40.0-77.0 % Lymphocytes (%) (Auto) 1.8 L 21.0-51.0 % Monocytes (%) (Auto) 3.0 3.0-13.0 % Eosinophils (%) (Auto) 0.0 0.0-8.0 % Basophils (%) (Auto) 0.1 0.0-5.0 % Neutrophils # (Auto) 17.9 H 1.8-7.7 K/uL Lymphocytes # (Auto) 0.4 L 1.0-4.8 K/uL Monocytes # (Auto) 0.6 0.1-1.0 K/uL Eosinophils # (Auto) 0.00 0.00-0.70 K/uL Basophils # (Auto) 0.02 0.00-0.20 K/uL Absolute Immature Granulocyte (auto 0.16 0-1 K/uL Chemistry Labs: Test 06/19/25 12:24 06/19/25 10:14 06/19/25 04:14 Range/Units Whole Blood Glucose 156 H 70-110 MG/DL Lactic Acid Level 4.7 H 0.8-2.5 mmol/L Ammonia < 10 L 11-32 umol/L C-Reactive Protein, Quantitative 9.30 H 0.5-3.0 mg/L B-Type Natriuretic Peptide 1790 H 0-100 pg/mL Sodium Level 143 136-145 mmol/L Potassium Level 3.1 L 3.5-5.1 mmol/L Chloride Level 104 101-111 mmol/L Carbon Dioxide Level 25 21-32 mmol/L Blood Urea Nitrogen 90 *H 7-18 mg/dL Creatinine 2.1 H 0.5-1.0 mg/dL Glomerular Filtration Rate Calc 25 >90 mL/min Random Glucose 177 H 70-105 mg/dL Total Calcium 7.4 L 8.5-10.1 mg/dL Phosphorus Level 4.3 2.5-4.9 mg/dL Magnesium Level 2.00 1.80-2.40 mg/dL Total Bilirubin 9.7 #H 0.2-1.0 mg/dL Aspartate Amino Transf (AST/SGOT) 51 H 10-37 U/L Alanine Aminotransferase (ALT/SGPT) 148 H 12-78 U/L Alkaline Phosphatase 113 50-136 U/L Total Protein 4.9 L 6.0-8.3 g/dL Albumin 1.9 L 3.5-5.0 g/dL Coagulation Labs: Test 06/19/25 04:14 06/18/25 05:15 Range/Units Prothrombin Time 15.1 H 9.6-11.6 SEC Prothromb Time International Ratio 1.48 H 0.85-1.15 Fibrinogen 161 L 180-350 mg/dL Activated Partial Thromboplast Time 41.9 H 26.3-35.5 SEC DIAGNOSTICS / RADIOLOGY: [facility] [address] [place] [address] IMAGING REPORT Signed PATIENT: HUGO WYLIE MR#: [id number] : 1955 SEX: F AGE: 69 LOCATION: 2C ORDER 0 STATUS: ADM IN REPORT#: [id number] SERVICE 7 REASON: HYPERBILIREUMIA ORDERING PHYSICIAN: JOHN MCCLAIN PAC PROCEDURE: MRCP WO - MRCP(ABDWO)CHOLANGIOPANCREATOG STUDY MR Cholangiopancreatography CLINICAL HISTORY Not stated. TECHNIQUE Multiplanar MR cholangiopancreatography performed without intravenous contrast using customized heavily T2-weighted pulse sequences, with additional standard abdominal MR sequences. COMPARISON Breast sonography report (date not specified), which described hepatomegaly and gallbladder wall thickening with minimal pericholecystic collection, and suggested underlying congestive heart failure with right pleural effusion and recommendation for 2D echocardiographic correlation. FINDINGS LIVER Mild fatty liver changes are present. No focal hepatic lesion is identified. BILIARY TREE AND GALLBLADDER Intrahepatic and extrahepatic bile ducts are normal in caliber without filling defect to suggest choledocholithiasis or obstructing stricture. Gallbladder is moderately distended, filled with hypointense bile/early sludge, with diffuse wall thickening measuring up to approximately 7.9 mm. No discrete intraluminal gallstone is identified on this MRCP. Appearance of diffuse gallbladder wall thickening in the setting of systemic volume overload is compatible with congestive/edematous gallbladder wall change. PANCREAS Pancreatic parenchymal signal is normal. No pancreatic mass, peripancreatic fluid, or ductal dilatation. SPLEEN Normal in size and configuration. ADRENALS Normal bilaterally without mass. KIDNEYS Normal in size and configuration. No hydronephrosis, nephrolithiasis, or dominant renal mass. RETROPERITONEUM No retroperitoneal mass or lymphadenopathy. AORTA AND VESSELS Visualized abdominal aorta is normal in caliber and contour without aneurysm or significant stenosis. BOWEL AND MESENTERY No bowel dilatation or focal mural thickening. No free or loculated intraperitoneal fluid. No mesenteric stranding or lymphadenopathy. ABDOMINAL WALL Diffuse soft tissue edema compatible with anasarca. LUNG BASES AND THORAX (LIMITED FIELD) Cardiomegaly is present. Bilateral pleural effusions are noted, with right effusion measuring up to approximately 4.8 cm in thickness and left effusion up to approximately 5.0 cm. Visualized bilateral lower lobes demonstrate imaging features of cardiogenic pulmonary edema. BONES No acute or aggressive osseous lesion. IMPRESSION * Cardiomegaly with bilateral pleural effusions and cardiogenic pulmonary edema, diffuse anasarca, fatty liver, and a moderately distended gallbladder with marked diffuse wall thickening and sludge, collectively most consistent with systemic venous congestion and congestive hepatobiliary change in the setting of suspected heart failure; correlation with clinical status and echocardiography is advised if not already performed. * MRCP otherwise demonstrates a normal-caliber biliary and pancreatic ductal system without evidence of choledocholithiasis or obstructing biliary lesion. /[place] DICTATED BY: DARREL GEORGE Jr., MD DATE: 06/19/251499 ELECTRONICALLY SIGNED BY: DARREL GEORGE Jr., MD DATE: 06/19/251499 PATIENT: HUGO WYLIE MR#: [id number] : 1955 SEX: F AGE: 69 LOCATION: [facility] ORDER 1032 STATUS: ADM IN REPORT#: [id number] SERVICE 1028 REASON: RESP FAILURE ORDERING PHYSICIAN: SHMUEL DOLL PROCEDURE: CXR1VW - CHEST 1VW EXAM: CR Chest, 1 View. CLINICAL HISTORY: RESP FAILURE COMPARISON: CR: CHEST 1VW 06/18/2025 03:49 AM ROOF PROMENADE TILE SETTER FINDINGS: Right central line is seen with tip at the cavoatrial junction. Unchanged. LUNGS: Still seen right basilar infiltrates. Newly visualized left basal hazy opacification. Likely due to poor inspiratory effort in the current study. PLEURAL SPACES: No pneumothorax. Questionable right pleural effusion vs pleural thickening. MEDIASTINUM: Stable cardiomegaly with mild pulmonary vascular congestion. BONES: No aggressive appearing osseous lesion seen. Cervical fixation is still seen. IMPRESSION: 1. Right basilar infiltrates consistent with pneumonia vs congestive changes. Unchanged since the previous study. 2. Newly visualized left basal hazy opacification. Likely due to poor inspiratory effort in the current study. 3. Questionable right pleural effusion vs pleural thickening. 4. Stable cardiomegaly with bilateral vascular congestion mainly hilar. /[place] DICTATED BY: GIANLUCA ADAN MD DATE: 06/18/251738 ELECTRONICALLY SIGNED BY: GIANLUCA ADAN MD DATE: 06/18/251738 PATIENT: HUGO WYLIE MR#: [id number] : 1955 SEX: F AGE: 69 LOCATION: 2CH ORDER 07 STATUS: ADM IN REPORT#: [id number] SERVICE 06 REASON: encephalopathy ORDERING PHYSICIAN: VY FOOTE MD PROCEDURE: HEAD WO - CT HEAD/BRAIN W/O CONTRAST EXAM: CT SCAN OF THE BRAIN WITHOUT CONTRAST CLINICAL HISTORY: Encephalopathy. TECHNIQUE: Axial computed tomography images of the head and brain were obtained without intravenous contrast. Coronal and sagittal reformatted images were obtained. Radiation dose reduction was achieved using ALARA (as low as reasonably achievable) principles including automatic exposure control, adjustment of mA and/or kV according to patient size and weight, and the use of iterative reconstruction techniques. RADIATION DOSE: CTDIvol 40.80 mGy; DLP 861.60 mGycm. CONTRAST: No intravenous contrast administered. COMPARISON: None provided. FINDINGS: Brain parenchyma: Focal area of encephalomalacia is present in the right occipitaltemporal region with associated volume loss. No acute intraparenchymal hemorrhage, mass, or mass effect is identified. White matter: Scattered hypodense foci in the bilateral periventricular and subcortical white matter are most compatible with chronic small vessel ischemic change. Graywhite matter differentiation is preserved. Ventricles and cisterns: Mild prominence of the ventricular system, sulcal spaces, basal cisterns, and sylvian fissures, in keeping with age-related cerebral volume loss. Mild ex vacuo dilatation of the occipital horn of the right lateral ventricle adjacent to the area of encephalomalacia. No hydrocephalus or midline shift is seen. Extra-axial spaces: Extra-axial spaces are mildly prominent, consistent with generalized cerebral atrophy. No acute extra-axial fluid collection or hemorrhage is demonstrated. Posterior fossa: Brainstem and cerebellum are unremarkable without focal abnormality. Sellar/parasellar region: Pituitary gland, optic chiasm, and pineal region appear unremarkable. CP angles and IACs: Cerebellopontine angle cisterns and internal auditory canals are clear and unremarkable. Skull and sinuses: Calvarium and skull base demonstrate normal bone density without acute fracture or destructive osseous lesion. The visualized paranasal sinuses are clear. IMPRESSION: * No CT evidence of acute intracranial hemorrhage, mass effect, or acute territorial infarct in this patient with encephalopathy. 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 * Mild generalized cerebral atrophy with chronic small vessel ischemic changes in the supratentorial white matter, in keeping with age-related and microvascular disease. /[place] DICTATED BY: GIANLUCA ADAN MD DATE: 06/17/251644 ELECTRONICALLY SIGNED BY: GIANLUCA ADAN MD DATE: 06/17/251644 PATIENT: HUGO WYLIE MR#: [id number] : 1955 SEX: F AGE: 69 LOCATION: [facility] ORDER 2300 STATUS: ADM IN REPORT#: [id number] SERVICE 0600 REASON: chf ORDERING PHYSICIAN: SHMUEL DOLL PROCEDURE: CXR1VW - CHEST 1VW EXAM: CR Chest, 1 View. CLINICAL HISTORY: chf COMPARISON: 06/16/2025 FINDINGS: The right PICC line tip is at the SVC. LUNGS: Interval improvement in bilateral perihilar and bibasilar airspace disease. PLEURAL SPACES: No evidence of pleural effusion or pneumothorax. MEDIASTINUM: Mild cardiomegaly. Interval reduction in pulmonary vascular congestion. BONES: No acute osseous abnormality. Lower cervical spine implants. IMPRESSION: 1. Interval improvement in bilateral perihilar and bibasilar airspace disease with reduction in pulmonary vascular congestion. 2. Mild stable cardiomegaly. 3. Right PICC line tip at the SVC. /[place] DICTATED BY: DARREL GEORGE Jr., MD DATE: 06/17/25 1058 ELECTRONICALLY SIGNED BY: DARREL GEORGE Jr., MD DATE: 06/17/25 1058 PATIENT: HUGO WYLIE MR#: [id number] : 1955 SEX: F AGE: 69 LOCATION: 2CH ORDER 2300 STATUS: ADM IN REPORT#: [id number] SERVICE 0600 REASON: pulmonary edema ORDERING PHYSICIAN: KINSEY TENORIO MD PROCEDURE: CXR1VW - CHEST 1VW EXAM: CR Chest, 1 View. CLINICAL HISTORY: pulmonary edema COMPARISON: 06/14/2025 FINDINGS: A right PICC tip is seen at the proximal superior vena cava. LUNGS: Stable bilateral interstitial and patchy airspace opacities, more evident at the lower lobes, represent pulmonary edema. PLEURAL SPACES: No pneumothorax. Stable small left pleural effusion. MEDIASTINUM: Stable cardiomegaly with pulmonary vascular congestion. BONES: No acute osseous abnormality. Cervical spine implants. IMPRESSION: 1. Stable bilateral pulmonary edema, more prominent in the lower lobes, with cardiomegaly and pulmonary vascular congestion. 2. Stable small left pleural effusion. 3. Right PICC tip at proximal superior vena cava. Overall, in comparison to the previous chest radiograph, there have been no significant interval changes. /[place] DICTATED BY: DARREL GEORGE Jr., MD DATE: 06/17/25 1110 ELECTRONICALLY SIGNED BY: DARREL GEORGE Jr., MD DATE: 06/17/25 1110 PATIENT: HUGO WYLIE MR#: [id number] : 1955 SEX: F AGE: 69 LOCATION: 2CH ORDER 1126 STATUS: ADM IN REPORT#: [id number] SERVICE 22 REASON: check for aortic valve vegatations and EF ORDERING PHYSICIAN: KINSEY TENORIO MD PROCEDURE: ECHO FU LD - ECHO 2-D F/U-LTD APPROVED REPORT EXAM: Limited 3D/Two-dimensional echocardiogram with color Doppler. INDICATION ICD: Assess aortic valvular vegetation and assess ejection fraction 2D Dimensions LVED Vol(simp.) 139.0 mL LVES Vol(simp.) 59.0 mL LVEF(%, simp.) 58 % Deformation Strain Apical 4 -14.5 % Apical 2 -19.7 % Apical 3 -19.3 % Global Strain -17.8 % Left Ventricle Left ventricular cavity size is normal. GLS -18.0% There is normal left ventricular wall thickness. LVEF is 55-60%. Aortic Valve Aortic valve is trileaflet and opens well. Multiple vegeations seen on the aortic valve lealfelts. Large RCC leaflet vegetation seen protruding into the LVOT. Small vegetations seen on the LCC/NCC leaflets. No significant changed seen compared to previous echocardiogram. Other Information Quality : Limited/Follow-up DICTATED BY: JOHN VERA MD DATE: 06/14/25 1320 ELECTRONICALLY SIGNED BY: JOHN VERA MD DATE: 06/14/252036 PATIENT: HUGO WLYIE MR#: [id number] : 1955 SEX: F AGE: 69 LOCATION: 2CH ORDER 0819 STATUS: ADM IN REPORT#: [id number] SERVICE 6 REASON: pulmonary congestion ORDERING PHYSICIAN: KINSEY TENORIO MD PROCEDURE: CXR1VW - CHEST 1VW EXAM: CR CHEST, 1 VIEW CLINICAL HISTORY: pulmonary congestion ,CHF COMPARISON: CR: CHEST 1VW dated 06/12/2025 06:14 AM EST: TECHNIQUE: Single frontal radiograph of the chest was obtained. FINDINGS: Lines/Devices: A right PICC is present with its tip seen at the proximal part of the superior vena cava. Lungs: Progressive course as regards the previously noted bilateral interstitial and patchy airspace opacities., more evident at the lower lobes. Newly developed blunted left costophrenic angle suggestive of a mild left pleural effusion. There is no pneumothorax. Mediastinum and cardiovascular structures: The cardiac silhouette is mildly enlarged. Prominent aortic knuckle is noted. The central airway and mediastinal contours are otherwise unremarkable. Bones and soft tissues: Evidence of fixation of the lower cervical spine is noted. Soft tissues are unremarkable. IMPRESSION: 1. Progressive bilateral bilateral interstitial and patchy airspace opacities, more evident at the lower lobes. 2. Newly developed blunted left costophrenic angle suggestive of a mild left pleural effusion. 3. Mild cardiomegaly. 4. Stable prominent aortic knuckle. 5. As compared to the CR: CHEST 1VW dated 06/12/2025 06:14 AM EST: , progressive course as regards the previously noted bilateral interstitial as well as patchy pulmonary opacities,stationary course as regards the cardiomegaly. Right PICC still seen in situ. Newly developed minimal left pleural effusion. /[place] DICTATED BY: GIANLUCA ADAN MD DATE: 06/14/252251 ELECTRONICALLY SIGNED BY: GIANLUCA ADAN MD DATE: 06/14/252251 PATIENT: HUGO WYLIE MR#: [id number] : 1955 SEX: F AGE: 69 LOCATION: [facility] ORDER 99 STATUS: ADM IN REPORT#: [id number] SERVICE 06 REASON: CHF ORDERING PHYSICIAN: VY FOOTE MD PROCEDURE: CXR1VW - CHEST 1VW EXAM: CR Chest, 1 View. CLINICAL HISTORY: CHF COMPARISON: 06/11/2025 FINDINGS: The right PICC line tip is at the SVC. LUNGS: Interval improvement in the bilateral interstitial and patchy airspace opacities. PLEURAL SPACES: No pleural effusion or pneumothorax. MEDIASTINUM: Mild stable cardiomegaly with pulmonary vascular congestion. BONES: No aggressive appearing osseous lesion seen. Cervical spine fusion hardware. IMPRESSION: 1. Bilateral interstitial and patchy airspace opacities, reduced since the prior study. 2. Mild stable cardiomegaly. 3. Right PICC line tip at the SVC. /[place] DICTATED BY: DARREL GEORGE Jr., MD DATE: 06/12/25 103 ELECTRONICALLY SIGNED BY: DARREL GEORGE Jr., MD DATE: 06/12/25 103 PATIENT: HUGO WYLIE MR#: [id number] : 1955 SEX: F AGE: 69 LOCATION: [facility] ORDER 1204 STATUS: ADM IN REPORT#: [id number] SERVICE 02 REASON: PICC placement ORDERING PHYSICIAN: VY FOOTE MD PROCEDURE: CXR1VW - CHEST 1VW CHEST 1VW REASON: PICC placement COMPARISON: Prior chest radiograph from 06/08/2025 is available. FINDINGS: Single view of the chest was obtained. There is cardiomegaly. There is diffuse interstitial pulmonary edema. There is a right-sided PIC catheter with tip in distal superior vena cava.. Mediastinum and bony thorax appear unremarkable. There is surgical changes with interpedicular screws and rods in the cervical spine there is anterior cervical disc fusion with orthopedic plate IMPRESSION: 1. The PICC catheter with the tip in the distal superior vena cava in satisfactory position 2. Cardiomegaly with interstitial pulmonary edema DICTATED BY: NARCISO ANTONIO MD DATE: 06/09/258 ELECTRONICALLY SIGNED BY: NARCISO ANTONIO MD DATE: 06/09/25 1233 PATIENT: HUGO WYLIE MR#: [id number] : 1955 SEX: F AGE: 69 LOCATION: [facility] ORDER 16 STATUS: ADM IN REPORT#: [id number] SERVICE 0000 REASON: acute chf exacerbation sob ORDERING PHYSICIAN: RIGOBERTO TADEO PROCEDURE: ECHO [facility] - ECHO 2-D COMPLETE APPROVED REPORT EXAM: Two-dimensional and M-mode echocardiogram with Doppler and color Doppler. INDICATION ICD: Acute congestive heart failure, shortness of breath 2D Dimensions RVDd 3.1 cm LVEF(%) 26.1 (>50%) LA ESV INDEX (BP) 35.28 mL/m2 IVSd 1.0 (0.7-1.1cm) FS(%) 12 % LVDd 5.0 (3.8-5.6cm) LA (2D) 4.3 (1.6-4.0cm) PWd 1.0 (0.7-1.1cm) Ao Root(2D) 3.4 (2.0-3.7cm) IVSs 1.0 cm LVOT diam 1.9 (1.8-2.4cm) LVDs 4.4 (2.5-4.0cm) PWs 1.6 cm Aortic Valve AoV Vmax 2.2 m/s Ao Peak GR 18.9 mmHg LVOT Vmax 1.6 m/s AoV VTI 0.3 m Ao Mean GR 9.2 mmHg LVOT VTI 0.24 m PATTIE (VMAX) 2.03 cm2 Al P1/2T 129 ms PATTIE (VTI) 2.0 cm2 Mitral Valve MV E Vmax 144.1 cm/s DECEL Time 105 ms MV A Vmax 82.2 cm/s P 1/2 T 34 ms E/A ratio 1.8 MVA (PHT) 6.5 cm2 TDI E/E' Medial 31.4 E/E' Lateral 15.7 Medial E' Peak V 4.59 cm/s Lateral E' Peak V 9.15 cm/s Pulmonary Valve PV Vmax 1.1 m/s PV Mean GR 2.1 mmHg PV Peak GR 4.6 mmHg Tricuspid Valve TR Vmax 2.1 m/s RAP (EST) 8 mmHg RVSP 26.1 mmHg TR Peak GR 18.1 mmHg Left Ventricle The left ventricle is normal size. There is normal LV segmental wall motion. There is normal left ventricular wall thickness. LVEF is 50-55%. The left ventricular diastolic function is normal. Right Ventricle The right ventricle is normal size. The right ventricular systolic function is normal. Atria The left atrium is mildly dilated. The right atrium is mildly dilated. Aortic Valve Aortic valve is trileaflet and opens well. Difficult to assess severity of ao rtic insufficiency. Would estimate [id number] Multiple vegetations seen on the aortic valve leafelts. Large Right coronary cusp leaflet vegetation seen protruding into the LVOT. Small non coronary cusp leaflet vegetation seen. Small left coronary cusp leaflet vegetation noted. There is no aortic valvular stenosis. Mitral Valve The mitral valve is normal in structure. There is moderate mitral valve regurgitation noted. There is no mitral valve stenosis. Tricuspid Valve The tricuspid valve is normal in structure. There is no tricuspid valve regurgitation noted. Pulmonic Valve The pulmonary valve is normal in structure. There is mild pulmonic valvular regurgitation. Great Vessels The aortic root is normal in size. IVC is not well visualized. Pericardium There is trivail pericardial effusion seen posteriorly Other Information Quality : Technically challenging study due to body habitus and limited cooperation of pt Conclusion LVEF is 50-55%. LVEF is 50-55%. Multiple vegetations seen on the aortic valve leafelts. Large Right coronary cusp leaflet vegetation seen protruding into the LVOT. Small non coronary cusp leaflet vegetation seen. Small left coronary cusp leaflet vegetation noted. Difficult to assess severity of aortic insufficiency. Would estimate [id number] There is moderate mitral valve regurgitation noted. DICTATED BY: BEN BROWN MD DATE: 06/09/25 0723 ELECTRONICALLY SIGNED BY: BEN BROWN MD DATE: 06/09/25 1314 PATIENT: HUGO WYLIE MR#: [id number] : 1955 SEX: F AGE: 69 LOCATION: [facility] ORDER 29 STATUS: ADM IN REPORT#: [id number] SERVICE 28 REASON: r/p P.E. ORDERING PHYSICIAN: JOHN NGUYEN PROCEDURE: CHES PE - CT CHEST PE PROTOCOL WWO CONT EXAM: CTA examination of the chest CLINICAL HISTORY: Rule out pulmonary embolism. TECHNIQUE: Postcontrast thin collimated axial CTA images of the chest were obtained with sagittal and coronal reformatted images also submitted. CT scan is done according to ALARA (As Low as Reasonably Achievable). COMPARISON: None provided. FINDINGS: Moderate pleural effusions bilaterally. Compressive atelectasis and consolidations in the bilateral lower lobes of the lung. Multifocal infiltrates and smooth interstitial thickening in the bilateral lung alejandro, reflecting multifocal pneumonia and pulmonary edema. No pneumothorax or masses evident. Small to medium pericardial effusion. Mild to moderate cardiomegaly. Calcific atherosclerotic disease in the thoracic aorta and coronary arteries. No thoracic aortic aneurysm. Dilated pulmonary trunk measures up to 4.4 cm in diameter. Perihilar vascular congestion. No filling defect or pulmonary thromboembolism is evident Mildly reactive mediastinal lymph nodes. Incidental thyroid nodules. Incidental mildly thickened bilateral adrenal glands. Atherosclerotic calcifications in the abdominal vessels. No acute bony abnormality is evident. Degenerative osseous changes. Chronic compression fracture in the T12 vertebral body with about 70% to 80% height reduction. IMPRESSION: No pulmonary thromboembolism. Small to medium pericardial effusion, cardiomegaly, pulmonary vascular congestion, pulmonary edema, and multifocal pneumonia in the bilateral lung alejandro. Moderate pleural effusions bilaterally. Compressive atelectasis and consolidations in the bilateral lower lobes of the lung. Mildly reactive mediastinal lymph nodes. No pneumothorax. Incidental thyroid nodules recommend ultrasound correlation. Incidental mildly enlarged bilateral adrenal glands, recommend a contrast-enhanced MRI of the adrenals for further characterization, if clinically indicated. /[place] DICTATED BY: DARREL GEORGE Jr., MD DATE: 06/09/25155 ELECTRONICALLY SIGNED BY: DARREL GEORGE Jr., MD DATE: 06/09/25155 PATIENT: HUGO WYLIE MR#: [id number] : 1955 SEX: F AGE: 69 LOCATION: [facility] ORDER 51 STATUS: REG REPORT#: [id number] SERVICE 49 REASON: SHORTNESS A BREATH ORDERING PHYSICIAN: OLVIN DING PROCEDURE: CXR1VW - CHEST 1VW EXAM: CR Chest, 1 View. CLINICAL HISTORY: SHORTNESS A BREATH COMPARISON: None provided. FINDINGS: There is bilateral perihilar and bibasilar airspace disease that may reflect pulmonary edema. Small bilateral pleural effusions. No pneumothorax. Mild to moderate cardiomegaly and pulmonary vascular congestion. IMPRESSION: 1. Bilateral perihilar and bibasilar airspace disease, possibly representing pulmonary edema, with small bilateral pleural effusions. 2. Mild to moderate cardiomegaly and pulmonary vascular congestion. /[place] DICTATED BY: DARREL GEORGE Jr., MD DATE: 06/08/251949 ELECTRONICALLY SIGNED BY: DARREL GEORGE Jr., MD DATE: 06/08/251949 ASSESSMENT: Hyponatremia Acute on chronic renal failure Acute hypoxic resp failure requiring BIPAP-POA Sepsis 2/2 community acquired pneumonia-POA NSTEMI-likely type II 2/2 demand ischemia from hypoxia vs. true cardiac etiology-POA- negative for chest pain or ST/T wave abnormality. HEART score 6 points=12-16.6% risk for MACE Possible new-onset CHF with exacerbation-POA Hyperlactatemia-POA Acute infectious encephalopathy-POA Suspected new-onset COPD with exacerbation-POA, in the setting of chronic nicotine disorder Pulmonary edema-POA Bilateral pleural effusions-POA Moderate hyponatremia, suspected acute-POA Sleep deprivation 2/2 current illness-POA History of paroxysmal AFib Chronic nicotine disorder: [id number] HX Prior CVA Neck and back surgery Detached retina Hyperthyroid disorder/Graves disease with right thyroid nodule HX of left greater trochanter fracture Medical non-compliance, HX of AMA last hospitalization in [facility] PLAN: Labs, diagnostic, radiologic exams reviewed and interpreted by myself and supervising physician. We have reviewed external records in detail Pending CT chest and brain MRI results Hematology workup is ongoing Require close monitoring of renal function and electrolytes Order CBC, CMP, and electrolytes in am Continue with antibiotics as per ID BiPAP as necessary, for respiratory distress IV pressors as needed Monitor blood pressure adjust medication doses as needed Avoid hypotensive episodes May use Dilaudid 0.5 mg IV every 6 hours as needed for severe pain Monitor blood sugars Strict intake, output, and daily weight should be monitored Please renally adjust medications Avoid nephrotoxic and nonsteroidal drugs Avoid contrast if possible Will continue to monitor renal function, anemia, electrolytes Treatment plan discussed with patient Questions were answered We have discussed with the other team physicians in detail about the care plan We will continue to monitor the patient closely Total critical care time spent with patient, nursing staff, critical care team over 35 minutes ATTESTATION BY PHYSICIAN I have seen and examined the patient. I reviewed the documentation, medical decision making, and treatment plan as noted by the mid-level provider above. I agree with the findings and plan of care. FLAVIA METCALF MD, [facility] Jun 19, 2025 14:31
--- NOTE | 2025-06-19 18:19 | PN ---
[facility] PROGRESS NOTE Date of Service: Jun 19, 2025 Time of Service: 18:06 SUBJECTIVE: HISTORY OF PRESENT ILLNESS: This is a 69-year-old female past medical history of emphysema peripheral neuropathy, atrial fibrillation and hyperthyroidism who was brought by EMS to the ED for complaints of shortness of breaths,dry cough and generalized body weakness which started for the past 3 weeks and getting worse this past few days.Patient reports she lives alone and a current heavy cigarette smoker 1 pack/day.As per patient she has been going to her PCP every week x 3 weeks and was started on steroids prednisone and inhaler and patient also reports was admitted for having atrial fibrillation last 05/09/25 and was seen by at [facility] [place]. Patient reports has not seen a program evaluation consultant.Patient complaints of chest tightness with dry cough for the past 3 weeks but has not improved and its getting worse so she decided to come to the ED .On further evaluation ,patient was asked by the undersigned if it come to appoint where she needs to be orally intubated and patient states she is okay and in the meantime she wants to try th e Bipap. Seen and examined patient in the ER awake,alert and appears very short of breath,she has a friend at bedside and helping her from time to time with medical history as patient appears anxious as well.Patient denies chest pain,palpitation,nausea,vomiting and fever. Latest vital signs temperature 98.1, heart rate 110, respiration 35, blood pressure 140/56 saturation 96 on B iPAP 40% FiO2. Labs: WBC 19 with negative left shift of neutrophils 84, hemoglobin 9, hematocrit 30, platelet count 386. Sodium 122, chloride 93, CO2 18, BUN 23, glucose 140, lactic acid 3.1 troponin 112 BNP 3370. D-dimer 3746, PT 15, INR 1.4 PTT 28. Influenza type a and B negative SARS COVID negative. Chest x-ray result revealed bilateral perihilar and bibasilar airspace disease possibly representing pulmonary edema with small bilateral pleural effusion. [id number] cardiomegaly and pulmonary vascular congestion. While in the ER patient received Solu-Medrol 125 mg IV, albuterol two unit dose via inhalation, levofloxacin 750 mg IV, Protonix 40 mg, NS 500 mL bolus, Lasix 80 mg IV and morphine 2 mg IV. Patient was started on Precedex per ICU radha mmendation. Admit patient for further medical management. 06/09/2025: The patient was seen and evaluated bedside in ICU, no family at bedside. Patient is agitated, anxious on max doses of Precedex, saturating 100% with FiO2 60 on BiPAP. Patient is currently on norepinephrine drip 0.05 mcg/mL/kg and heparin drip q.[address] chest showed no pulmonary thromboembolism, small to medium pericardial effusion, cardiomegaly, pulmonary vascular congestion, pulmonary edema and multifocal pneumonia in bilateral lung alejandro. Continue Zosyn, doxycycline, IV Lasix, Solu-Medrol IV. Morning lab showed white count 17.4, sodium 124, bicarb 14, lactic acid 3.7, troponin 178, BNP 3060, AST 1479, ALT 561. Patient has bicarb deficit of 336, we ordered sodium bicarbonate 100 mEq single dose and we will repeat bicarb this evening. Nephrology, Cardiology, critical Care on board we will continue to follow the recommendations. 06/10/2025: The patient was seen and evaluated bedside in ICU, no family at bedside. Patient is currently on Precedex, norepinephrine drip. Abdominal ultrasound showed focal edematous wall thickening of gallbladder with minimal pericholecystic fluid, recommended HIDA scan if there is persistent clinical concern for cholecystitis. Lab showed white count trending down to 17.1, lactic acid trending down to 3, AST 3143, ALT 1515. Zosyn has been discontinued by Infectious Disease, patient was started on cefepime and vancomycin. Cardiology recommended transesophageal echocardiography once the patient become more stable. 06/11/2025: The patient was seen and evaluated bedside in ICU, no family at bedside. Patient is currently on one-to-one sitter. Patient continues to be on Precedex, norepinephrine, heparin drip. Morning lab shows white count 22.3, sodium 135, potassium 3.1, BUN 52, creatinine 1.5, fibrinogen 265, lactic acid trended down to 2, AST trended down to 946, ALT trended down to 1026. Blood culture shows no growth so far. Continue IV antibiotics as recommended by Infectious Disease. 06/12/2025: Patient was evaluated bedside in room 215 and several family members were present at the bedside. Patient also has 2 on 1 sitter. Patient was awake and alert but is mildly confused. Patient is still recovering from sepsis from community-acquired pneumonia and her white count remained stable at 22.4k. Patient oxygenating well via high-flow nasal cannula Oxymizer with flow rate of 5 L. Still continues on amiodarone drip due to AFib with telemetry consistent with Afib. Patient is still pending a HIDA scan and VICK due to her respiratory status. We will continue linezolid, cefepime and doxycycline and start to taper methylprednisolone as per critical Care recommendations. 06/13/2025: Patient was seen and evaluated in room 215, no family at bedside. Patient is awake, alert, oriented x3, saturating 96 % with Oxymizer. Patient says that she is feeling better, denies any new or worsening symptoms. Cardiology recommended discontinuing amiodarone drip, started patient on amiodarone 200 mg twice daily. Labs show white count trending down to 19.2, BNP trending down to 3180, AST trending down to 193, ALT trending down to 608. We w ill continue linezolid, cefepime, metronidazole and doxycycline. 06/14/2025: Patient was seen and evaluated in room 215, no family at bedside. Patient is awake, alert, saturating 90% with 10L nasal cannula. Morning labs show white count trending down to 15.1, BUN 55, creatinine 1.7, BNP 4680, lactic acid 4.6, AST trending down to 105, ALT trending down to 468. We will order li mited echocardiogram to check for aortic valve vegetations and ejection fraction. Continue oral amiodarone, Lasix, Solu-Medrol, linezolid, cefepime, metronidazole, doxycycline. Plan for VICK as per cardiology. Cardiology, Infectious Disease on board we will continue to follow their recommendations. 06/15/2025: Patient was seen and evaluated in room 215, no family at bedside. Patient is awake, alert, saturating 96% with high-flow nasal cannula. Morning labs show BNP 4530, BUN 77, creatinine 1.9, white count 15.8. Limited echocardiogram was done which shows LVEF 55-60%, multiple vegetations on aortic valve leaflets. IV Lasix has been increased to 40 mg Q 8 by critical care team. Cardiology recommended discontinuing midodrine, heparin drip and patient was started on Lovenox. Continue oral amiodarone, Lasix, Solu-Medrol, linezolid, cefepime, metronidazole, doxycycline. Plan for VICK as per cardiology. Cardiology, Infectious Disease on board we will continue to follow their recommendations. 06/16/2025: Patient was seen and evaluated in room 215, no family at bedside. Patient is awake, alert, confused saturating 94% with high-flow nasal cannula. Morning labs show BNP trending down to 3070, lactic acid trending down to 3.7, potassium 2.9, BUN 80, creatinine 2.3. Negative Fluid balance today 600. We will replace potassium, continue oral amiodarone, IV Lasix, Solu-Medrol, l inezolid, cefepime, metronidazole, doxycycline. We will request case management for evaluation as patient will need long-term antibiotics for 4-6 weeks, critical care at discharge. Cardiology, Infectious Disease on board we will continue to follow their recommendations. 06/17/2025: Patient was seen and evaluated in room 215, no family at bedside. Patient is currently sedated, and unable to communicate, saturating 97% with BiPAP with a FiO2 of 60%. Patient was started on norepinephrine drip yesterday as her systolic blood pressure in the 80s. Today the plan is to wean off Precedex and norepinephrine drip. Morning labs show BNP trending down to 2170, lactic acid trending down to 3.1, BUN 82, creatinine 2.5, platelets trending down to 93. We ordered renal ultrasound, urine electrolytes, urine creatinine to further evaluate renal function. continue oral amiodarone, metoprolol, IV Lasix, Solu-Medrol, linezolid, cefepime, metronidazole, doxycycline. Cardiology, Infectious Disease on board we will continue to follow their recommendations. 06/18/2025: Patient was seen and evaluated in room 215, no family at bedside. Patient is awake, alert, 99% with high-flow nasal cannula. Patient continues on norepinephrine drip at 5.5 mL/hour. Morning lab show BNP trending down to 826, lactic acid trending up to 5.9, platelets trending down to 62, PT 17.8, INR 1.78, APTT 41.9, fibrinogen 89. We will give cryoprecipitate today. Head CT shows no hemorrhage, chronic encephalomalacia in the right occipitotemporal daisy on with associated ex vacuo dilation of occipital horn of the right lateral ventricle, most compatible with sequela of prior infarct or insult. Linezolid, IV Lasix has been stopped, continue oral amiodarone, metoprolol, Solu-Medrol, cefepime, metronidazole, doxycycline. Cardiology, Infectious Disease on board we will continue to follow their recommendations. 06.19.2025: Patient is seen and evaluated in room 215. Her mental status has improved significantly; although she remains intermittently confused, more awake, able to answer questions, and oriented to self and place. She is currently off Levophed and Precedex and is tolerating this well. A brain MRI was performed today and the report is pending. An MRCP completed today showed cardiomegaly with bilateral pleural effusions, cardiogenic pulmonary edema, diffuse anasarca, fatty liver, and a moderately distended gallbladder with markedly diffuse wall thickening and sludge, findings most consistent with systemic venous congestion and congestive hepatobiliary changes. Zyvox has been discontinued due to thrombocytopenia, and the patient continues on cefepime, F lagyl, and doxycycline per Infectious Disease. Hematology notes that she previously received heparin and Lovenox, raising concern for possible HIT versus drug-induced thrombocytopenia. She also received FFP, and although her fibrinogen had been very low, it is now 161. Hematology advised against further platelet transfusions and sent HIT antibodies; and Arixtra 2.5 mg dose as recom mended by Hematology was initiated today. Her labs today show WBC 25.8, hemoglobin 9.2, platelets 48, BNP 1790, CRP 9.3 trending down, lactic acid 4.7, ammonia <10, potassium 3.1 to be replaced per protocol, BUN 90, creatinine 2.1, and total bilirubin 9.7. REVIEW OF SYSTEMS CONSTITUTIONAL: Denies fevers, chills, or night sweats. No unintentional weight loss reported. NEUROLOGICAL: Denies headache, amaurosis fugax, motor weakness, sensory d eficit, vertigo/spinning sensation, gait abnormalities, or tremors. ENT: No hearing loss, otalgia, otorrhea, rhinitis, rhinorrhea, hoarseness, or sore throat. CARDIOVASCULAR: Denies any exertional angina, dyspnea on exertion, orthopnea, paroxysmal nocturnal dyspnea, palpitations, life-threatening arrhythmias, claudication. PULMONARY: Complaints of shortness of breaths, dry cough and chest tightness x3 weeks Denies phlegm/sputum, hemoptysis, pleuritic chest pain. SLEEP: Denies morning headaches, daytime somnolence or napping. Denies difficulty falling asleep, staying asleep, waking from sleep. Denies knowledge of snoring. GASTROINTESTINAL: Denies any type of dysphagia to either liquids or solids. Denies nausea, vomiting, pyrosis, early satiety, abdominal pain, diarrhea, constipation, or changes in stool consistency or caliber. Denies coffee-ground emesis, hematemesis, hematochezia, or melanotic stools. GENITOURINARY: Denies frequency, urgency, nocturia, hematuria or incontinence (Storage/Irritative symptoms.) Low urinary stream, straining to void, urinary intermittency or hesitancy, splitting of the voiding stream, terminal dribbling. ENDOCRINOLOGIC: Denies polyuria, polydipsia, polyphagia or heat/cold intolerances. HEMATOLOGIC: Denies thrombophilia/previous clots, or coagulopathy/bleeding diso rders. ONCOLOGIC: Denies personal history of malignancy. DERMATOLOGIC: Denies rashes or pruritus. PSYCHIATRIC: Denies any suicidal or homicidal ideation. Denies hallucinations. PHYSICAL EXAM GENERAL APPEARANCE: The patient is awake, alert, and oriented to self but not to place and time ,moderate respiratory distress NEUROLOGICAL: Cranial nerves II-XII grossly intact. Motor is 5/5 in bilateral upper and lower extremities proximal to distal. No sensory deficits. HEENT: Face is symmetric. Pupils are equal and reactive. Extraocular movements are intact. NECK: Supple. No JVD. No thyromegaly. No submental, submandibular, pre-/posta uricular, occipital or supraclavicular lymphadenopathy. CHEST: Normal chest expansion. No Telemetry. LUNGS: tachypneic, with NC via Oxymizer CARDIOVASCULAR: Tachycardic Regular. S1 and S2 normal. No appreciable rubs, murmurs or gallops. ABDOMEN: Soft, nontender, and nondistended. There is no rebound, voluntary guarding, or rigidity. : Deferred. Gonzalez. EXTREMITIES: Non-edematous and not cyanotic. No clubbing. Good capillary refill. SKIN: No skin breakdown. Vital Signs (last 8hr) Date Time Temp Pulse Resp B/P (MAP) Pulse Ox O2 Delivery O2 Flow Rate FiO2 06/19/25 17:00 95 15 137/57 95 Nasal Cannula 5.0 06/19/25 16:00 95 Nasal Cannula* 5 40 06/19/25 16:00 100 59 138/99 95 Nasal Cannula 5.0 06/19/25 15:00 84 15 142/57 99 Nasal Cannula 5.0 06/19/25 14:15 112 147/53 06/19/25 14:00 114 15 147/53 99 Nasal Cannula 5.0 06/19/25 13:00 96 15 129/54 99 Nasal Cannula 5.0 06/19/25 12:00 97.2 99 13 138/66 97 Nasal Cannula 5.0 06/19/25 12:00 95 Nasal Cannula* 5 40 06/19/25 11:00 85 16 137/51 100 Nasal Cannula 5.0 LABS: Laboratory: Test 06/19/25 16:21 06/19/25 10:14 06/19/25 04:14 06/18/25 19:30 Range/Units Whole Blood Glucose 205 H 70-110 MG/DL Lactic Acid Level 4.7 H 0.8-2.5 mmol/L Ammonia < 10 L 11-32 umol/L C-Reactive Protein, Quantitative 9.30 H 0.5-3.0 mg/L B-Type Natriuretic Peptide 1790 H 0-100 pg/mL White Blood Count 25.8 #H 4.8-10.8 K/uL Red Blood Count 3.77 L 4.00-5.50 MIL/uL Hemoglobin 9.2 L 12.0-16.0 g/dL Hematocrit 26.9 L 36-48 % Mean Corpuscular Volume 71.4 L 79-99 fL Mean Corpuscular Hemoglobin 24.4 L 27.0-33.0 pg Mean Corpuscular Hemoglobin Concent 34.2 32.0-36.0 g/dL Red Cell Distribution Width 20.5 H 11.0-15.5 % Platelet Count 48 L 130-400 K/uL Mean Platelet Volume 7.5-10.5 fL Segmented Neutrophils % 98 H 40-70 % Lymphocytes % (Manual) 1 L 22-44 % Monocytes % (Manual) 1 L 2-9 % Nucleated Red Blood Cells 0.2 H 0.0-0.19 % Differential Comment MANUAL DIFFERENTIAL White Cell Morphology Comment Platelet Morphology Comment See comments Red Blood Cell Morphology See comments Prothrombin Time 15.1 H 9.6-11.6 SEC Prothromb Time International Ratio 1.48 H 0.85-1.15 Fibrinogen 161 L 180-350 mg/dL Sodium Level 143 136-145 mmol/L Potassium Level 3.1 L 3.5-5.1 mmol/L Chloride Level 104 101-111 mmol/L Carbon Dioxide Level 25 21-32 mmol/L Blood Urea Nitrogen 90 *H 7-18 mg/dL Creatinine 2.1 H 0.5-1.0 mg/dL Glomerular Filtration Rate Calc 25 >90 mL/min Random Glucose 177 H 70-105 mg/dL Total Calcium 7.4 L 8.5-10.1 mg/dL Phosphorus Level 4.3 2.5-4.9 mg/dL Magnesium Level 2.00 1.80-2.40 mg/dL Total Bilirubin 9.7 #H 0.2-1.0 mg/dL Aspartate Amino Transf (AST/SGOT) 51 H 10-37 U/L Alanine Aminotransferase (ALT/SGPT) 148 H 12-78 U/L Alkaline Phosphatase 113 50-136 U/L Total Protein 4.9 L 6.0-8.3 g/dL Albumin 1.9 L 3.5-5.0 g/dL Urine Color YELLOW YELLOW Urine Appearance CLOUDY H CLEAR Urine pH 6.0 5.0-8.0 Urine Specific [place] 1.014 1.001-1.031 Urine Protein 20 H NEGATIVE mg/dL Urine Glucose (UA) NEGATIVE NEGATIVE mg/dL Urine Ketones NEGATIVE NEGATIVE mg/dL Urine Occult Blood SMALL H NEGATIVE Urine Nitrate NEGATIVE NEGATIVE Urine Bilirubin NEGATIVE NEGATIVE mg/dL Urine Urobilinogen 0.2 0.2-1.0 mg/dL Urine Leukocyte Esterase NEGATIVE NEGATIVE Parker/uL Urine RBC 6-10 H 0-1 /HPF Urine WBC 11-25 H 0-1 /HPF Urine Other Crystals (Auto) 7 None Seen /HPF Urine Bacteria None None Seen /HPF Urine Yeast MANY None Seen /HPF Urine Random Creatinine 31.44 30-135 mg/dL Urine Random Sodium 16 L 40-220 mmol/l Urine Random Potassium 33 25-125 mmol/L Urine Random Chloride 43 L 110-250 mmol/L Test 06/18/25 10:34 12/5/25 05:15 Range/Units Blood Gas Specimen Type Arterial Arterial Blood pH 7.405 7.350-7.450 Arterial Blood Partial Pressure CO2 36 32-45 mmHg Arterial Blood Partial Pressure O2 68.8 L 83.0-108.0 mmHg Arterial Blood HCO3 21.8 21.0-28.0 mmol/L Arterial Blood Oxygen Saturation 93.7 L 94.0-98.0 % Arterial Blood Base Excess -2.5 L -2.0-3.0 mmol/L Hemoglobin (Blood Gas) 9.5 L 12.0-16.0 g/dL Sodium (Blood Gas) 138 136-145 MMOL/L Bedside Potassium (Blood Gas) 3.3 L 3.4-4.5 MMOL/L Bedside Chloride (Blood Gas) 104 98-107 MMOL/L Bedside Glucose (Blood Gas) 334 H 65-95 MG/DL Bedside Ionized Calcium (Blood Gas) 0.95 L 1.15-1.33 MMOL/L Bedside Lactic Acid (Blood Gas) 6.29 *H 0.36-0.75 MMOL/L Blood Gas Temperature 37.0 35.5-37.0 CELSIUS Blood Gas Flow-by 20.00 H 0.00-15.00 L/min Blood Gas Vent Mode HFNC ROOM AIR FiO2 40.0 % Blood Gas Specimen Comment RRROSIE Immature Granulocyte % (Auto) 0.8 0-1 % Neutrophils (%) (Auto) 94.3 H 40.0-77.0 % Lymphocytes (%) (Auto) 1.8 L 21.0-51.0 % Monocytes (%) (Auto) 3.0 3.0-13.0 % Eosinophils (%) (Auto) 0.0 0.0-8.0 % Basophils (%) (Auto) 0.1 0.0-5.0 % Neutrophils # (Auto) 17.9 H 1.8-7.7 K/uL Lymphocytes # (Auto) 0.4 L 1.0-4.8 K/uL Monocytes # (Auto) 0.6 0.1-1.0 K/uL Eosinophils # (Auto) 0.00 0.00-0.70 K/uL Basophils # (Auto) 0.02 0.00-0.20 K/uL Absolute Immature Granulocyte (auto 0.16 0-1 K/uL Activated Partial Thromboplast Time 41.9 H 26.3-35.5 SEC Current Medications Medications (Trade) Dose Ordered Sig/Rossy Route PRN Reason Start Time Stop Time Status Last Admin Dose Admin Acetaminophen (TYLenol 325MG TAB) 650 mg Q4H PRN PO MILD PAIN (1-3) 06/08/25 20:30 07/08/25 20:29 06/12/25 10:16 650 MG Acetaminophen (TYLenol 325MG TAB) 650 mg Q6H PRN PO TEMPERATURE GREATER THAN 101.5 06/08/25 20:30 07/08/25 20:29 06/12/25 20:47 650 MG Albuterol (DUOneb) 1 udvial [id number] 06/08/25 22:00 07/08/25 21:59 06/19/25 06:55 1 UDVIAL Amiodarone HCl (pacERONE 200MG) 200 mg BID PO 06/13/25 21:00 07/13/25 20:59 06/19/25 08:59 200 MG Amiodarone HCl 540 mg/Dextrose 300 ml @ 16.667 mls/ hr PROTOCOL IV 06/12/25 10:00 06/13/25 03:59 DC 06/12/25 11:33 16.667 MLS/HR Amiodarone HCL/ Dextrose 100 ml @ 600 mls/hr PROTOCOL IV 06/12/25 05:00 06/12/25 06:53 DC 06/12/25 05:10 600 MLS/HR Amiodarone HCL/ Dextrose 100 ml @ 0 mls/hr PROTOCOL IV 06/12/25 07:00 06/12/25 07:01 DC Amiodarone HCL/ Dextrose 200 ml @ 33.333 mls/ hr PROTOCOL IV 06/12/25 05:00 06/12/25 06:53 DC 06/12/25 05:11 33.333 MLS/HR Budesonide (Pulmicort 0.5 Mg/2ml) 0.5 mg BIDRESP 06/09/25 18:00 07/09/25 17:59 06/19/25 06:55 0.5 MG Cefepime HCl (MAXipime 1 GM vial) 1 gm Q12H IV 06/10/25 14:00 06/10/25 14:35 DC 06/10/25 14:23 1 GM Cefepime HCl (MAXipime 1 GM vial) 1 gm Q12H9 IVPB 06/10/25 21:00 06/24/25 13:59 06/19/25 08:59 1 GM Cefepime HCl (MAXipime 1 GM vial) 1 gm Q8H IVPB 06/10/25 09:30 06/10/25 09:41 DC Dexmedetomidine/ Sodium Chloride (PRECEdex 200MCG/ 50ML-NS) 200 mcg PROTOCOL IV 06/16/25 11:30 07/16/25 11:29 06/18/25 05:50 200 MCG Dexmedetomidine/ Sodium Chloride (PRECEdex 400MCG/ 100ML-NS) 400 mcg PROTOCOL IV 06/08/25 20:00 06/11/25 17:00 DC 06/11/25 09:27 400 MCG Dextrose (D50w) 50 ml AD PRN IV HYPOGLYCEMIA PROTOCOL 06/17/25 14:30 07/17/25 14:29 Dorzolamide/ Timolol (Cosopt Eye Drops) 1 DROP BID OP 06/09/25 21:00 07/09/25 20:59 06/19/25 09:00 1 ML Doxycycline Hyclate 250 ml @ 125 mls/hr Q12H IV 06/08/25 23:00 06/18/25 22:59 DC 06/18/25 11:06 125 MLS/HR Doxycycline Hyclate 250 ml @ 125 mls/hr Q12H IV 06/19/25 13:00 06/29/25 12:59 06/19/25 12:57 125 MLS/HR Enoxaparin Sodium (Lovenox (Pharmacy To Dose)) 1 unit Q24H SQ 06/15/25 14:00 06/15/25 14:01 DC Enoxaparin Sodium (Lovenox 80mg) 70 mg Q24H SQ 06/15/25 14:30 06/17/25 12:11 DC 06/16/25 14:39 70 MG Famotidine (Pepcid 20mg Vial) 20 mg DAILY IV 06/09/25 09:00 06/09/25 13:09 DC 06/09/25 08:39 20 MG Fluticasone Propionate (FLOnase 50 mcg/ spray 16g bottle) 1 SPRAY DAILY EN 06/12/25 15:00 07/12/25 14:59 06/19/25 09:00 1 SPRAYS Fondaparinux (Arixtra) 2.5 mg DAILY SQ 06/19/25 09:30 07/19/25 09:29 06/19/25 10:31 2.5 MG Furosemide (LASix 20MG VIAL) 20 mg BID IVP 06/12/25 09:00 06/12/25 09:19 DC 06/12/25 08:57 20 MG Furosemide (LASix 40MG VIAL) 20 mg BID IVP 06/11/25 21:00 06/12/25 06:54 DC 06/11/25 21:26 20 MG Furosemide (LASix 40MG VIAL) 40 mg BID IVP 06/08/25 21:00 06/11/25 17:00 DC 06/11/25 09:32 40 MG Furosemide (LASix 40MG VIAL) 40 mg BID IVP 06/12/25 21:00 06/14/25 13:19 DC 06/14/25 08:24 40 MG Furosemide (LASix 40MG VIAL) 40 mg Q8H6 IVP 06/14/25 14:00 06/17/25 12:12 DC 06/17/25 05:22 40 MG Glucagon (Glucagon 1mg Kit) 1 mg AD PRN IM HYPOGLYCEMIA PROTOCOL 06/17/25 14:30 07/17/25 14:29 Heparin Sodium (Porcine) (HEParin 5,000 UNIT VIAL) *calculation based on ACTUAL B... AD PRN IV HEPARIN PROTOCOL 06/09/25 04:00 06/15/25 14:01 DC Heparin Sodium/ Dextrose 250 ml @ 0 mls/hr Q6H IV 06/09/25 04:00 06/15/25 13:58 DC 06/15/25 02:42 4.7 MLS/HR Home Med (Home Medication) (Methimazole 5MG TAB) - 0.5 TAB... DAILY PO 06/10/25 09:00 07/10/25 08:59 06/19/25 09:01 1 EACH Insulin Human Regular (humuLIN R 100 UNIT/ML 3ML) INSULIN SLIDING SCAL... ACHS SQ 06/17/25 16:30 06/18/25 10:03 DC 06/18/25 08:53 6 UNIT Insulin Human Regular (humuLIN R 100 UNIT/ML 3ML) INSULIN SLIDING SCAL... ACHS SQ 06/18/25 11:30 07/18/25 11:29 06/19/25 16:25 6 UNIT Lactulose (Constulose 20gm/ 30ml Udcup) 20 gm BID PRN PO CONSTIPATION 06/13/25 07:30 07/13/25 07:29 Latanoprost (Xalatan) 1 DROP HS OD 06/09/25 21:00 07/09/25 20:59 06/18/25 20:17 2.5 DROP Levofloxacin/ Dextrose 100 ml @ 100 mls/hr Q24H IV 06/09/25 20:00 06/08/25 22:40 DC Linezolid 300 ml @ 150 mls/hr Q12H IV 06/11/25 11:30 06/11/25 12:38 DC Linezolid 300 ml @ 150 mls/hr Q12H IV 06/11/25 14:30 06/18/25 12:55 DC 06/18/25 02:07 150 MLS/HR Magnesium Sulfate 50 ml @ 0 mls/hr PROTOCOL PRN IV MAGNESIUM PROTOCOL 06/09/25 17:00 07/09/25 16:59 06/12/25 03:21 25 MLS/HR Methylprednisolone Sodium Succinate (Solu-medROL 40MG) 40 mg Q12H9 IVP 06/12/25 21:00 07/09/25 13:29 06/19/25 09:00 40 MG Methylprednisolone Sodium Succinate (Solu-medROL 40MG) 40 mg Q8H IVP 06/09/25 13:30 06/12/25 14:11 DC 06/12/25 13:23 40 MG Metoprolol Tartrate (loprESSOR) 2.5 mg Q6H PRN IV heart rate greater than 110 06/12/25 03:30 07/12/25 03:29 06/19/25 14:15 2.5 MG Metoprolol Tartrate (loprESSOR) 25 mg BID PO 06/12/25 21:00 06/17/25 12:12 DC 06/16/25 21:24 25 MG Metoprolol Tartrate (loprESSOR) 25 mg BID PO 06/19/25 21:00 07/19/25 20:59 Metronidazole/ Sodium Chloride 100 ml @ 100 mls/hr Q8H6 IVPB 06/10/25 14:00 06/20/25 13:59 06/19/25 13:00 100 MLS/HR Midodrine (PROAMatine 5 MG TABLET) 5 mg TID PO 06/10/25 14:00 06/11/25 08:52 DC 06/10/25 20:08 5 MG Midodrine (PROAMatine 5 MG TABLET) 10 mg TID PO 06/11/25 09:00 06/15/25 13:58 DC 06/14/25 21:14 10 MG Nicotine (Nicoderm) 21 mg DAILY TD 06/08/25 23:00 07/08/25 22:59 06/19/25 09:00 21 MG Norepinephrine 250 ml @ 0 mls/hr PROTOCOL IV 06/09/25 01:00 07/09/25 00:59 06/17/25 05:41 27.7 MLS/HR Olanzapine (ZyPREXA 5 mg tab) 5 mg BID PO 06/10/25 21:00 06/17/25 12:13 DC 06/16/25 21:24 5 MG Ondansetron HCl (zoFRAN 4MG INJ) 4 mg Q6H PRN IV NAUSEA/VOMITING 06/08/25 20:30 07/08/25 20:29 Oseltamivir Phosphate (Tamiflu) 75 mg BID PO 06/09/25 21:00 06/10/25 09:08 DC 06/10/25 09:03 75 MG Pantoprazole Sodium (PROTonix 40MG INJ) 40 mg DAILY IVP 06/10/25 09:00 07/10/25 08:59 06/19/25 08:59 40 MG Pharmacy Profile Note (Pharmacy Communication) 1 each ONCE MISC 06/09/25 03:00 06/09/25 03:24 DC Pharmacy Profile Note (Pharmacy Communication) 1 each ONCE MISC 06/11/25 11:30 06/11/25 11:19 DC Pharmacy Profile Note (Pharmacy Communication) 1 each ONCE MISC 06/16/25 11:00 06/16/25 11:08 DC Pharmacy Profile Note (Pharmacy Communication) 1 each ONCE MISC 06/16/25 17:00 06/16/25 17:10 DC Phytonadione (Vitamin K 10mg/ 1ml Adult Vial) 10 mg DAILY SQ 06/11/25 09:00 06/13/25 15:00 DC 06/13/25 09:24 10 MG Phytonadione (Vitamin K 10mg/ 1ml Adult Vial) 10 mg Q24H SQ 06/10/25 15:00 06/10/25 16:55 DC 06/10/25 15:11 10 MG Piperacillin Sod/ Tazobactam Sod (Zosyn 3.375gm+NS 50ml) 3.375 gm Q8H IV 06/08/25 23:00 06/10/25 09:08 DC 06/10/25 07:10 3.375 GM Potassium Chloride 100 ml @ 50 mls/hr AD PRN IV POTASSIUM PROTOCOL 06/09/25 17:00 06/11/25 06:10 DC 06/09/25 21:18 50 MLS/HR Potassium Chloride 100 ml @ 100 mls/hr AD PRN IV POTASSIUM PROTOCOL 06/09/25 17:00 07/09/25 16:59 06/18/25 16:46 100 MLS/HR Potassium Chloride 100 ml @ 100 mls/hr AD PRN IV POTASSIUM PROTOCOL 06/16/25 12:00 07/16/25 11:59 06/19/25 06:17 100 MLS/HR Potassium Chloride (K-Dur/Klor-Con 20meq) 20 meq AD PRN PO POTASSIUM PROTOCOL 06/09/25 17:00 07/09/25 16:59 Potassium Chloride (KCl 10% Elixir 20meq/15ml) 20 meq AD PRN PO POTASSIUM PROTOCOL 06/09/25 17:00 07/09/25 16:59 Sevelamer HCl (RENAgel 800 MG TAB) 400 mg TIDMEALS PO 06/17/25 12:00 06/17/25 15:36 DC Sodium Bicarbonate 150 meq/Sodium Chloride 1,150 ml @ 100 mls/hr [id number] IVP 06/09/25 12:00 06/09/25 12:29 DC Sodium Bicarbonate (Sodium Bicarbonate) 650 mg BID PO 06/13/25 11:30 06/13/25 11:58 DC Sodium Bicarbonate (Sodium Bicarbonate) 1,300 mg BID PO 06/13/25 21:00 07/13/25 20:59 06/19/25 09:00 1,300 MG Vancomycin HCl 250 ml @ 125 mls/hr Q24H IV 06/11/25 10:00 06/11/25 11:15 DC 06/11/25 09:31 125 MLS/HR Vancomycin HCl (Vancomycin Protocol) 1 each AD IV 06/10/25 09:30 06/11/25 11:15 DC Ziprasidone (Geodon) 10 mg Q6H PRN IM AGITATION/PSYCHOSIS 06/09/25 18:00 06/17/25 12:13 DC 06/11/25 17:28 10 MG DIAGNOSTICS / RADIOLOGY: [place] [id number] [address] IMAGING REPORT Signed PATIENT: HUGO WYLIE MR#: [id number] : 1955 SEX: F AGE: 69 LOCATION: 2CH ORDER 0 STATUS: ADM IN REPORT#: [id number] SERVICE 7 REASON: HYPERBILIREUMIA ORDERING PHYSICIAN: JOHN MCCLAIN PAC PROCEDURE: MRCP WO - MRCP(ABDWO)CHOLANGIOPANCREATOG STUDY MR Cholangiopancreatography CLINICAL HISTORY Not stated. TECHNIQUE Multiplanar MR cholangiopancreatography performed without intravenous contrast using customized heavily T2-weighted pulse sequences, with additional standard abdominal MR sequences. COMPARISON Breast sonography report (date not specified), which described hepatomegaly and gallbladder wall thickening with minimal pericholecystic collection, and suggested underlying congestive heart failure with right pleural effusion and recommendation for 2D echocardiographic correlation. FINDINGS LIVER Mild fatty liver changes are present. No focal hepatic lesion is identified. BILIARY TREE AND GALLBLADDER Intrahepatic and extrahepatic bile ducts are normal in caliber without filling defect to suggest choledocholithiasis or obstructing stricture. Gallbladder is moderately distended, filled with hypointense bile/early sludge, with diffuse wall thickening measuring up to approximately 7.9 mm. No discrete intraluminal gallstone is identified on this MRCP. Appearance of diffuse gallbladder wall thickening in the setting of systemic volume overload is compatible with congestive/edematous gallbladder wall change. PANCREAS Pancreatic parenchymal signal is normal. No pancreatic mass, peripancreatic fluid, or ductal dilatation. SPLEEN Normal in size and configuration. ADRENALS Normal bilaterally without mass. KIDNEYS Normal in size and configuration. No hydronephrosis, nephrolithiasis, or dominant renal mass. RETROPERITONEUM No retroperitoneal mass or lymphadenopathy. AORTA AND VESSELS Visualized abdominal aorta is normal in caliber and contour without aneurysm or significant stenosis. BOWEL AND MESENTERY No bowel dilatation or focal mural thickening. No free or loculated intraperitoneal fluid. No mesenteric stranding or lymphadenopathy. ABDOMINAL WALL Diffuse soft tissue edema compatible with anasarca. LUNG BASES AND THORAX (LIMITED FIELD) Cardiomegaly is present. Bilateral pleural effusions are noted, with right effusion measuring up to approximately 4.8 cm in thickness and left effusion up to approximately 5.0 cm. Visualized bilateral lower lobes demonstrate imaging features of cardiogenic pulmonary edema. BONES No acute or aggressive osseous lesion. IMPRESSION * Cardiomegaly with bilateral pleural effusions and cardiogenic pulmonary edema, diffuse anasarca, fatty liver, and a moderately distended gallbladder with marked diffuse wall thickening and sludge, collectively most consistent with systemic venous congestion and congestive hepatobiliary change in the setting of suspected heart failure; correlation with clinical status and echocardiography is advised if not already performed. * MRCP otherwise demonstrates a normal-caliber biliary and pancreatic ductal system without evidence of choledocholithiasis or obstructing biliary lesion. /[place] DICTATED BY: ADRREL GEORGE Jr., MD DATE: 06/19/251499 ELECTRONICALLY SIGNED BY: DARREL GEORGE Jr., MD DATE: 06/19/251499 ASSESSMENT: Acute hypoxemic respiratory failure POA Sepsis secondary to community acquired pneumonia-POA Infective endocarditis involving the aortic valve- culture negative. Aortic insufficiency due to Multiple vegetations seen on the aortic valve leafelts. (2D echo 06/09/2025) Hepatic transaminitis Acute multifactorial delirium Acute CHF exacerbation with possible pulmonary edema POA Elevated troponin likely due to type 2 demand ischemia POA Acute kidney injury Acute COPD exacerbation POA Nicotine Dependence POA Acute anemia POA Acute leukocytosis POA Moderate Hyponatremia and hypochloremia POA Hyperglycemia POA Lactic acidosis POA Hyperthyroidism POA Peripheral neuropathy POA History of emphysema POA History of atrial fibrillation not on anticoagulation PLAN: Acute hypoxemic respiratory failure POA On Presentation patient's respiratory rate 30, heart rate 108, saturating 96% with2 L nasal cannula Chest x-ray showed bilateral perihilar and bibasilar airspace disease Patient on high-flow nasal cannula, continue DuoNeb q.4 Continue IV Solu-Medrol 40 mg q.12h IV Critical Care on board, we will follow the recommendations. Sepsis secondary to community acquired pneumonia-POA On presentation heart rate 108, respiratory rate 30, white count 19.7, lactic acid 3.1 Chest x-ray showed bilateral perihilar and bibasilar airspace disease CT chest showed multifocal pneumonia bilateral lungs, pulmonary vascular congestion, pulmonary edema Patient was started on norepinephrine drip on 06/16/2025 due to systolic blood pressure in 80s- weaned off today Discontinue linezolid IV q.12h , Continue on cefepime IV q.12h Continue doxycycline q.12h IV , metronidazole q.8 IV We will trend lactic acid Moderate Hyponatremia and hypochloremia POA On presentation sodium 122, chloride 93 Serum osmolality low at 274, urine osmolality normal, BNP 4530 Hyponatremia most likely due to fluid overload Discontinued IV Lasix 40 mg q8 Sodium today 143 Nephrology on board, we will follow the recommendations. Aortic insufficiency due to Multiple vegetations seen on the aortic valve leafelts. (2D echo 06/09/2025) 2D echocardiogram showed LVEF 50-55%, normal left ventricular diastolic function, normal right ventricular systolic function Multiple vegetations seen on aortic valve leaflets, difficulty to assess severity of aortic insufficiency, moderate mitral valve regurgitation BNP trended down to 826 today Discontinue linezolid IV q.12h , continue cefepime Continue doxycycline q.12h IV, metronidazole q.8 IV Blood culture showed no growth so far We will Request consultation from Infectious Disease [facility] could not be performed as patient could not tolerate Hepatic transaminitis An MRCP completed today showed cardiomegaly with bilateral pleural effusions, cardiogenic pulmonary edema, diffuse NSRK changes, fatty liver, and a moderately distended gallbladder with markedly diffuse wall thickening and sludge, findings most consistent with systemic venous congestion and congestive hepatobiliary changes in the setting of suspected heart failure Acute multifactorial delirium Her mental status has improved significantly; although she remains intermittently confused A brain MRI was performed today and the report is pending. GI Prophylaxis with famotidine 20 mg IV daily DVT prophylaxis from SCDs ATTESTATION BY PHYSICIAN I have seen and examined the patient. I reviewed the documentation, medical decision making, and treatment plan as noted by the resident provider above. I agree with the findings and plan of care. Nilay Felming MD, LAKSHMI MD Jun 19, 2025 18:19
[2025-06-19 19:17] LABS: ABG BASE EXCESS -4.0 mmol/L (-2.0-3.0); ABG HCO3 20.3 mmol/L (21.0-28.0); ABG OXYGEN SATURATION 91.8 % (94.0-98.0); ABG PCO2 34 mmHg (32-45); ABG PH 7.391 (7.350-7.450); CARBON MONOXIDE 1.5 % (0.5-1.5); DEVICE COMMENT RR RN; PO2, ARTERIAL BG 65.8 mmHg (83.0-108.0); TEMPERATURE, CELSIUS BG 37.0 CELSIUS (35.5-37.0)
--- NOTE | 2025-06-19 21:20 | NUR ---
REFUSING BIPAP AND CONSTANTLY REMOVING NASAL CANULA, TO HAVE O2SAT DECREASED TO 87%
--- NOTE | 2025-06-19 21:20 | NUR ---
PRECEDEX RESTARTED PATIENT BECAME AGGRESSIVE WITH STAFFS AND REMOVING NASAL CANULA AND THE BIPAP, WILL CONT TO MONITOR
[2025-06-20] VITALS (55 sets, daily range): BP systolic 87–157; BP diastolic 35–91; PULSE 67–105; RESP 14–26; TEMP 97–98.7; O2SAT 94–100
--- NOTE | 2025-06-20 00:45 | NUR ---
PATIENT ADHERING TO BIPAP TX, WHILE ON PRECEDEX, WILL CONT TO MONITOR
--- NOTE | 2025-06-20 03:43 | HMCIMG ---
EXAM: CT Chest Without Intravenous Contrast. CLINICAL HISTORY: Pleural effusion. Post ACDF status in the cervical spine. TECHNIQUE: Axial computed tomography images of the chest without intravenous contrast. Dose reduction technique was used including one or more of the following: automated exposure control, adjustment of mA and kV according to patient size, and/or iterative reconstruction. Total exam DLP 397. Total CTDI volume 10.3. CONTRAST: Without. COMPARISON: Prior chest radiograph dated 06/18/2025. A prior CT chest dated June 08, 2025 is available for comparison. FINDINGS: LUNGS: Extensive areas of ground-glass attenuation infiltrates, mosaic attenuation are present in the bilateral lung parenchyma, significantly increased in severity since the prior chest radiograph dated 06/18/2025. Compressive atelectasis of the lung bases. No pulmonary mass. PLEURAL SPACES: Moderate sized bilateral pleural effusions. No pneumothorax. HEART AND MEDIASTINUM: The thyroid is enlarged and appears heterogeneous. There is a right sided PICC line with its tip terminating in the distal superior vena cava. There are atheromatous calcification of the thoracic aortic arch and the coronary arteries. The main pulmonary artery measures 4.5 cm, which may represent pulmonary artery hypertension. There are enlarged mediastinal lymph nodes, measuring up to 1.8 cm. There are coronary arterial calcifications. Minimal pericardial effusion is present. No cardiomegaly. LYMPH NODES: Enlarged mediastinal lymph nodes, measuring up to 1.8 cm. CHEST WALL AND UPPER ABDOMEN: Moderate ascites. Hyperdense contents are present in the gallbladder lumen, which may represent vicarious contrast excretion. The chest wall is unremarkable. BONES: Osteopenia. Chronic compression deformity of T12 vertebra with 80% vertebral height reduction. No acute osseous abnormality. IMPRESSION: 1. Extensive bilateral pulmonary parenchymal infiltrates, bilateral pleural effusions and mediastinal adenopathy, suggestive of infectious pneumonitis, significantly worsened since the prior chest radiograph dated 06/18/[address] chest pulmonary angiography dated June 08, 2025. 2. Main pulmonary artery measures 4.5 cm, suggestive of pulmonary artery hypertension, stable since the prior CT pulmonary angiography dated June 08, 2025. 3. Moderate ascites, new since the prior CT pulmonary angiography dated June 08, 2025. /[place]
[2025-06-20 06:11] LABS: INR 1.66 (0.85-1.15)
[2025-06-20 06:50] LABS: IMMATURE GRANULOCYTE ABSOLUTE 0.21 K/uL (0-1); NUCLEATED RED BLOOD CELLS 0.0 % (0.0-0.19); PLATELET COUNT (AUTO) 22 K/uL (130-400); RED BLOOD CELL COUNT(AUTO) 3.41 MIL/uL (4.00-5.50); RED CELL DISTRIBUTION WIDTH 20.3 % (11.0-15.5); WHITE BLOOD COUNT (AUTO) 19.0 K/uL (4.8-10.8)
[2025-06-20 07:12] LABS: ASPARTATE AMINOTRANSFERASE 46.0 U/L (10-37); CREATININE 1.9 mg/dL (0.5-1.0); GLOMERULAR FILTR. RATE CALC 28.0 mL/min (>90); GLUCOSE,RANDOM 234.0 mg/dL (70-105); PHOSPHORUS 4.6 mg/dL (2.5-4.9); SODIUM SERUM 146.0 mmol/L (136-145); TOTAL PROTEIN, SERUM 4.3 g/dL (6.0-8.3)
[2025-06-20 07:13] LABS: UREA NITROGEN, BLOOD 97.0 mg/dL (7-18)
--- NOTE | 2025-06-20 07:29 | NUR ---
dr. palma made aware of pt hgb drop from 9.2 to 8.2, plalets of 22 , no active bleeding noted, as per md pt to continue to be monitored , no plalet transfusion and continue to administer Arixtra as ordered.
[2025-06-20 07:55] LABS: LACTATE DEHYDROGENASE 420.0 U/L (81-234)
--- NOTE | 2025-06-20 10:41 | PN ---
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 She continues to require supplemental oxygen and BiPAP at night. Pending ERCP scan and VICK, patient unable to tolerate positioning She remains on Lasix, 40 mg IV [id number], Urine output was noted She continues on antibiotics as per ID She has had acute on chronic renal failure while in the hospital. Creatinine has been elevated in the patient is being seen as a follow up visit for all the above Renal function remains elevated Electrolytes are noted, Hematology workup is ongoing She was seen in the ICU Family at the bedside Prognosis remains guarded REVIEW OF SYSTEMS: GENERAL: Positive for shortness of breath NEUROLOGIC: Negative for any blurry vision, blind spots, double vision, facial asymmetry, dysphagia, dysarthria, hemiparesis, hemisensory deficits, vertigo, ataxia. HEENT: Negative for any head trauma, neck trauma, neck stiffness, photophobia, phonophobia, sinusitis, rhinitis. CARDIAC: Negative for any chest pain, dyspnea on exertion, paroxysmal nocturnal dyspnea, peripheral edema. PULMONARY: Negative for any shortness of breath, wheezing, COPD, or TB exposure. GASTROINTESTINAL: Negative for any abdominal pain, nausea, vomiting, bright red blood per rectum, melena. GENITOURINARY: Negative for any dysuria, hematuria, incontinence. INTEGUMENTARY: Negative for any rashes, cuts, insect bites. RHEUMATOLOGIC: Negative for any joint pains, photosensitive rashes, history of vasculitis or kidney problems. HEMATOLOGIC: Negative for any abnormal bruising, frequent infections or bleeding. Vital Signs (last 8hr) Date Time Temp Pulse Resp B/P (MAP) Pulse Ox O2 Delivery O2 Flow Rate FiO2 06/19/25 14:15 112 147/53 06/19/25 14:00 114 15 147/53 99 Nasal Cannula 5.0 06/19/25 13:00 96 15 129/54 99 Nasal Cannula 5.0 06/19/25 12:00 97.2 99 13 138/66 97 Nasal Cannula 5.0 06/19/25 12:00 95 Nasal Cannula* 5 40 06/19/25 11:00 85 16 137/51 100 Nasal Cannula 5.0 06/19/25 09:56 97.0 06/19/25 09:38 106 16 132/53 95 N/C High Flow System 20.0 40 06/19/25 09:30 93 16 95 06/19/25 09:15 91 16 96 06/19/25 09:00 106 15 95 06/19/25 08:45 108 18 95 06/19/25 08:38 93 14 120/60 92 06/19/25 08:30 92 14 92 06/19/25 08:15 110 14 94 06/19/25 08:00 95 Hi-Flow N/C+ 30 60 06/19/25 08:00 94 14 93 06/19/25 07:45 107 14 93 06/19/25 07:38 91 14 127/69 94 N/C High Flow System 20.0 40 06/19/25 07:30 90 15 93 06/19/25 07:15 82 13 93 06/19/25 07:00 109 16 95 06/19/25 06:50 96 18 06/19/25 06:49 97 18 40 PHYSICAL EXAM: GENERAL: Alert and oriented x 3. No acute distress. Well-nourished. EYES: EOMI. Anicteric. HENT: Moist mucous membranes. No scleral icterus. No cervical lymphadenopathy. LUNGS: Clear to auscultation bilaterally. No accessory muscle use. CARDIOVASCULAR: Regular rate and rhythm. No murmur. No JVD. ABDOMEN: Soft, non-tender and non-distended. No palpable masses. EXTREMITIES: No edema. Non-tender. SKIN: No rashes or lesions. Warm. NEUROLOGIC: No focal neurological deficits. CN II-XII grossly intact, but not individually tested. PSYCHIATRIC: Cooperative. Appropriate mood and affect. Current Medications Medications (Trade) Dose Ordered Sig/Rossy Route Start Time Stop Time Status Last Admin Dose Admin Albuterol (DUOneb) 1 udvial [id number] IH 06/08/25 22:00 07/08/25 21:59 06/18/25 06:38 1 UDVIAL Amiodarone HCl (pacERONE 200MG) 200 mg BID PO 06/13/25 21:00 07/13/25 20:59 06/17/25 21:39 200 MG Amiodarone HCl 540 mg/Dextrose 300 ml @ 16.667 mls/ hr PROTOCOL IV 06/12/25 10:00 06/13/25 03:59 DC 06/12/25 11:33 16.667 MLS/HR Amiodarone HCL/ Dextrose 100 ml @ 600 mls/hr PROTOCOL IV 06/12/25 05:00 06/12/25 06:53 DC 06/12/25 05:10 600 MLS/HR Amiodarone HCL/ Dextrose 100 ml @ 0 mls/hr PROTOCOL IV 06/12/25 07:00 06/12/25 07:01 DC Amiodarone HCL/ Dextrose 200 ml @ 33.333 mls/ hr PROTOCOL IV 06/12/25 05:00 06/12/25 06:53 DC 06/12/25 05:11 33.333 MLS/HR Budesonide (Pulmicort 0.5 Mg/2ml) 0.5 mg BIDRESP 06/09/25 18:00 07/09/25 17:59 06/18/25 06:38 0.5 MG Cefepime HCl (MAXipime 1 GM vial) 1 gm Q12H IVPB 06/10/25 14:00 06/10/25 14:35 DC 06/10/25 14:23 1 GM Cefepime HCl (MAXipime 1 GM vial) 1 gm Q12H9 IVPB 06/10/25 21:00 06/24/25 13:59 06/17/25 21:38 1 GM Cefepime HCl (MAXipime 1 GM vial) 1 gm Q8H IVPB 06/10/25 09:30 06/10/25 09:41 DC Dexmedetomidine/ Sodium Chloride (PRECEdex 200MCG/ 50ML-NS) 200 mcg PROTOCOL IV 06/16/25 11:30 07/16/25 11:29 06/18/25 05:50 200 MCG Dexmedetomidine/ Sodium Chloride (PRECEdex 400MCG/ 100ML-NS) 400 mcg PROTOCOL IV 06/08/25 20:00 06/11/25 17:00 DC 06/11/25 09:27 400 MCG Dorzolamide/ Timolol (Cosopt Eye Drops) 1 DROP BID OP 06/09/25 21:00 07/09/25 20:59 06/17/25 21:41 1 ML Doxycycline Hyclate 250 ml @ 125 mls/hr Q12H IV 06/08/25 23:00 06/18/25 22:59 06/17/25 21:38 125 MLS/HR Enoxaparin Sodium (Lovenox (Pharmacy To Dose)) 1 unit Q24H SQ 06/15/25 14:00 06/15/25 14:01 DC Enoxaparin Sodium (Lovenox 80mg) 70 mg Q24H SQ 06/15/25 14:30 06/17/25 12:11 DC 06/16/25 14:39 70 MG Famotidine (Pepcid 20mg Vial) 20 mg DAILY IV 06/09/25 09:00 06/09/25 13:09 DC 06/09/25 08:39 20 MG Fluticasone Propionate (FLOnase 50 mcg/ spray 16g bottle) 1 SPRAY DAILY EN 06/12/25 15:00 07/12/25 14:59 06/16/25 08:23 1 SPRAYS Furosemide (LASix 20MG VIAL) 20 mg BID IVP 06/12/25 09:00 06/12/25 09:19 DC 06/12/25 08:57 20 MG Furosemide (LASix 40MG VIAL) 20 mg BID IVP 06/11/25 21:00 06/12/25 06:54 DC 06/11/25 21:26 20 MG Furosemide (LASix 40MG VIAL) 40 mg BID IVP 06/08/25 21:00 06/11/25 17:00 DC 06/11/25 09:32 40 MG Furosemide (LASix 40MG VIAL) 40 mg BID IVP 06/12/25 21:00 06/14/25 13:19 DC 06/14/25 08:24 40 MG Furosemide (LASix 40MG VIAL) 40 mg Q8H6 IVP 06/14/25 14:00 06/17/25 12:12 DC 06/17/25 05:22 40 MG Heparin Sodium/ Dextrose 250 ml @ 0 mls/hr Q6H IV 06/09/25 04:00 06/15/25 13:58 DC 06/15/25 02:42 4.7 MLS/HR Home Med (Home Medication) (Methimazole 5MG TAB) - 0.5 TAB... DAILY PO 06/10/25 09:00 07/10/25 08:59 06/16/25 08:23 1 EACH Insulin Human Regular (humuLIN R 100 UNIT/ML 3ML) INSULIN SLIDING SCAL... ACHS SQ 06/17/25 16:30 07/17/25 16:29 06/18/25 08:53 6 UNIT Latanoprost (Xalatan) 1 DROP HS OD 06/09/25 21:00 07/09/25 20:59 06/17/25 22:15 2.5 DROP Levofloxacin/ Dextrose 100 ml @ 100 mls/hr Q24H IV 06/09/25 20:00 06/08/25 22:40 DC Linezolid 300 ml @ 150 mls/hr Q12H IV 06/11/25 11:30 06/11/25 12:38 DC Linezolid 300 ml @ 150 mls/hr Q12H IV 06/11/25 14:30 06/21/25 14:29 06/18/25 02:07 150 MLS/HR Methylprednisolone Sodium Succinate (Solu-medROL 40MG) 40 mg Q12H9 IVP 06/12/25 21:00 07/09/25 13:29 06/17/25 21:38 40 MG Methylprednisolone Sodium Succinate (Solu-medROL 40MG) 40 mg Q8H IVP 06/09/25 13:30 06/12/25 14:11 DC 06/12/25 13:23 40 MG Metoprolol Tartrate (loprESSOR) 25 mg BID PO 06/12/25 21:00 06/17/25 12:12 DC 06/16/25 21:24 25 MG Metronidazole/ Sodium Chloride 100 ml @ 100 mls/hr Q8H6 IVPB 06/10/25 14:00 06/20/25 13:59 06/18/25 05:50 100 MLS/HR Midodrine (PROAMatine 5 MG TABLET) 5 mg TID PO 06/10/25 14:00 06/11/25 08:52 DC 06/10/25 20:08 5 MG Midodrine (PROAMatine 5 MG TABLET) 10 mg TID PO 06/11/25 09:00 06/15/25 13:58 DC 06/14/25 21:14 10 MG Nicotine (Nicoderm) 21 mg DAILY TD 06/08/25 23:00 07/08/25 22:59 06/17/25 12:58 21 MG Norepinephrine 250 ml @ 0 mls/hr PROTOCOL IV 06/09/25 01:00 07/09/25 00:59 06/17/25 05:41 27.7 MLS/HR Olanzapine (ZyPREXA 5 mg tab) 5 mg BID PO 06/10/25 21:00 06/17/25 12:13 DC 06/16/25 21:24 5 MG Oseltamivir Phosphate (Tamiflu) 75 mg BID PO 06/09/25 21:00 06/10/25 09:08 DC 06/10/25 09:03 75 MG Pantoprazole Sodium (PROTonix 40MG INJ) 40 mg DAILY IVP 06/10/25 09:00 07/10/25 08:59 06/17/25 12:58 40 MG Pharmacy Profile Note (Pharmacy Communication) 1 each ONCE MISC 06/09/25 03:00 06/09/25 03:24 DC Pharmacy Profile Note (Pharmacy Communication) 1 each ONCE MISC 06/11/25 11:30 06/11/25 11:19 DC Pharmacy Profile Note (Pharmacy Communication) 1 each ONCE MISC 06/16/25 11:00 06/16/25 11:08 DC Pharmacy Profile Note (Pharmacy Communication) 1 each ONCE MISC 06/16/25 17:00 06/16/25 17:10 DC Phytonadione (Vitamin K 10mg/ 1ml Adult Vial) 10 mg DAILY SQ 06/11/25 09:00 06/13/25 15:00 DC 06/13/25 09:24 10 MG Phytonadione (Vitamin K 10mg/ 1ml Adult Vial) 10 mg Q24H SQ 06/10/25 15:00 06/10/25 16:55 DC 06/10/25 15:11 10 MG Piperacillin Sod/ Tazobactam Sod (Zosyn 3.375gm+NS 50ml) 3.375 gm Q8H IV 06/08/25 23:00 06/10/25 09:08 DC 06/10/25 07:10 3.375 GM Sevelamer HCl (RENAgel 800 MG TAB) 400 mg TIDMEALS PO 06/17/25 12:00 06/17/25 15:36 DC Sodium Bicarbonate 150 meq/Sodium Chloride 1,150 ml @ 100 mls/hr [id number] IVP 06/09/25 12:00 06/09/25 12:29 DC Sodium Bicarbonate (Sodium Bicarbonate) 650 mg BID PO 06/13/25 11:30 06/13/25 11:58 DC Sodium Bicarbonate (Sodium Bicarbonate) 1,300 mg BID PO 06/13/25 21:00 07/13/25 20:59 06/17/25 21:39 1,300 MG Vancomycin HCl 250 ml @ 125 mls/hr Q24H IV 06/11/25 10:00 06/11/25 11:15 DC 06/11/25 09:31 125 MLS/HR Vancomycin HCl (Vancomycin Protocol) 1 each AD IV 06/10/25 09:30 06/11/25 11:15 DC LABORATORY: [ ] Hematology Labs: Test 06/20/25 06:35 06/19/25 04:14 Range/Units White Blood Count 19.0 H 4.8-10.8 K/uL Red Blood Count 3.41 L 4.00-5.50 MIL/uL Hemoglobin 8.2 L 12.0-16.0 g/dL Hematocrit 24.5 L 36-48 % Mean Corpuscular Volume 71.8 L 79-99 fL Mean Corpuscular Hemoglobin 24.0 L 27.0-33.0 pg Mean Corpuscular Hemoglobin Concent 33.5 32.0-36.0 g/dL Red Cell Distribution Width 20.3 H 11.0-15.5 % Platelet Count 22 #L 130-400 K/uL Mean Platelet Volume 7.5-10.5 fL Immature Granulocyte % (Auto) 1.1 H 0-1 % Neutrophils (%) (Auto) 95.4 H 40.0-77.0 % Lymphocytes (%) (Auto) 2.2 L 21.0-51.0 % Monocytes (%) (Auto) 1.2 L 3.0-13.0 % Eosinophils (%) (Auto) 0.0 0.0-8.0 % Basophils (%) (Auto) 0.1 0.0-5.0 % Neutrophils # (Auto) 18.1 H 1.8-7.7 K/uL Lymphocytes # (Auto) 0.4 L 1.0-4.8 K/uL Monocytes # (Auto) 0.2 0.1-1.0 K/uL Eosinophils # (Auto) 0.00 0.00-0.70 K/uL Basophils # (Auto) 0.01 0.00-0.20 K/uL Absolute Immature Granulocyte (auto 0.21 0-1 K/uL Nucleated Red Blood Cells 0.0 0.0-0.19 % Segmented Neutrophils % 98 H 40-70 % Lymphocytes % (Manual) 1 L 22-44 % Monocytes % (Manual) 1 L 2-9 % Differential Comment MANUAL DIFFERENTIAL White Cell Morphology Comment Platelet Morphology Comment See comments Red Blood Cell Morphology See comments Chemistry Labs: Test 06/20/25 06:35 06/20/25 05:45 06/20/25 05:00 06/19/25 10:14 Range/Units Sodium Level 146 H 136-145 mmol/L Potassium Level 3.6 3.5-5.1 mmol/L Chloride Level 108 101-111 mmol/L Carbon Dioxide Level 25 21-32 mmol/L Blood Urea Nitrogen 97 *H 7-18 mg/dL Creatinine 1.9 H 0.5-1.0 mg/dL Glomerular Filtration Rate Calc 28 >90 mL/min Random Glucose 234 H 70-105 mg/dL Total Calcium 7.5 L 8.5-10.1 mg/dL Phosphorus Level 4.6 2.5-4.9 mg/dL Magnesium Level 2.10 1.80-2.40 mg/dL Total Bilirubin 10.5 H 0.2-1.0 mg/dL Direct Bilirubin 8.1 *H 0.0-0.3 mg/dL Gamma Glutamyl Transpeptidase 167 H 5-85 U/L Aspartate Amino Transf (AST/SGOT) 46 H 10-37 U/L Alanine Aminotransferase (ALT/SGPT) 116 H 12-78 U/L Alkaline Phosphatase 111 50-136 U/L Lactate Dehydrogenase 420 H 81-234 U/L C-Reactive Protein, Quantitative 9.00 H 0.5-3.0 mg/L B-Type Natriuretic Peptide 1280 H 0-100 pg/mL Total Protein 4.3 L 6.0-8.3 g/dL Albumin 1.8 L 3.5-5.0 g/dL Whole Blood Glucose 208 H 70-110 MG/DL Lactic Acid Level 5.2 H 0.8-2.5 mmol/L Procalcitonin 0.29 0.05-0.5 ng/mL Ammonia < 10 L 11-32 umol/L Coagulation Labs: Test 06/20/25 05:00 Range/Units Prothrombin Time 16.7 H 9.6-11.6 SEC Prothromb Time International Ratio 1.66 H 0.85-1.15 Fibrinogen 132 L 180-350 mg/dL DIAGNOSTICS / RADIOLOGY: [facility] [address] [place] [address] IMAGING REPORT Signed PATIENT: HUGO WYLIE MR#: [id number] : 1955 SEX: F AGE: 69 LOCATION: [facility] ORDER 1021 STATUS: ADM IN REPORT#: [id number] SERVICE 0957 REASON: Pleural effusion ORDERING PHYSICIAN: SHMUEL DOLL PROCEDURE: CHEST WO - CT CHEST W/O CONTRAST EXAM: CT Chest Without Intravenous Contrast. CLINICAL HISTORY: Pleural effusion. Post ACDF status in the cervical spine. TECHNIQUE: Axial computed tomography images of the chest without intravenous contrast. Dose reduction technique was used including one or more of the following: automated exposure control, adjustment of mA and kV according to patient size, and/or iterative reconstruction. Total exam DLP 397. Total CTDI volume 10.3. CONTRAST: Without. COMPARISON: Prior chest radiograph dated 06/18/2025. A prior CT chest dated June 08, 2025 is available for comparison. FINDINGS: LUNGS: Extensive areas of ground-glass attenuation infiltrates, mosaic attenuation are present in the bilateral lung parenchyma, significantly increased in severity since the prior chest radiograph dated 06/18/2025. Compressive atelectasis of the lung bases. No pulmonary mass. PLEURAL SPACES: Moderate sized bilateral pleural effusions. No pneumothorax. HEART AND MEDIASTINUM: The thyroid is enlarged and appears heterogeneous. There is a right sided PICC line with its tip terminating in the distal superior vena cava. There are atheromatous calcification of the thoracic aortic arch and the coronary arteries. The main pulmonary artery measures 4.5 cm, which may represent pulmonary artery hypertension. There are enlarged mediastinal lymph nodes, measuring up to 1.8 cm. There are coronary arterial calcifications. Minimal pericardial effusion is present. No cardiomegaly. LYMPH NODES: Enlarged mediastinal lymph nodes, measuring up to 1.8 cm. CHEST WALL AND UPPER ABDOMEN: Moderate ascites. Hyperdense contents are present in the gallbladder lumen, which may represent vicarious contrast excretion. The chest wall is unremarkable. BONES: Osteopenia. Chronic compression deformity of T12 vertebra with 80% vertebral height reduction. No acute osseous abnormality. IMPRESSION: 1. Extensive bilateral pulmonary parenchymal infiltrates, bilateral pleural effusions and mediastinal adenopathy, suggestive of infectious pneumonitis, significantly worsened since the prior chest radiograph dated 06/18/[address] chest pulmonary angiography dated June 08, 2025. 2. Main pulmonary artery measures 4.5 cm, suggestive of pulmonary artery hypertension, stable since the prior CT pulmonary angiography dated June 08, 2025. 3. Moderate ascites, new since the prior CT pulmonary angiography dated June 08, 2025. /Tarrs DICTATED BY: GIANLUCA ADAN MD DATE: 06/20/25441 ELECTRONICALLY SIGNED BY: GIANLUCA ADAN MD DATE: 06/20/25441 PATIENT: HUGO WYLIE MR#: [id number] : 1955 SEX: F AGE: 69 LOCATION: [facility] ORDER 0 STATUS: ADM IN REPORT#: [id number] SERVICE 7 REASON: HYPERBILIREUMIA ORDERING PHYSICIAN: JOHN MCCLAIN PAC PROCEDURE: MRCP WO - MRCP(ABDWO)CHOLANGIOPANCREATOG STUDY MR Cholangiopancreatography CLINICAL HISTORY Not stated. TECHNIQUE Multiplanar MR cholangiopancreatography performed without intravenous contrast using customized heavily T2-weighted pulse sequences, with additional standard abdominal MR sequences. COMPARISON Breast sonography report (date not specified), which described hepatomegaly and gallbladder wall thickening with minimal pericholecystic collection, and suggested underlying congestive heart failure with right pleural effusion and recommendation for 2D echocardiographic correlation. FINDINGS LIVER Mild fatty liver changes are present. No focal hepatic lesion is identified. BILIARY TREE AND GALLBLADDER Intrahepatic and extrahepatic bile ducts are normal in caliber without filling defect to suggest choledocholithiasis or obstructing stricture. Gallbladder is moderately distended, filled with hypointense bile/early sludge, with diffuse wall thickening measuring up to approximately 7.9 mm. No discrete intraluminal gallstone is identified on this MRCP. Appearance of diffuse gallbladder wall thickening in the setting of systemic volume overload is compatible with congestive/edematous gallbladder wall change. PANCREAS Pancreatic parenchymal signal is normal. No pancreatic mass, peripancreatic fluid, or ductal dilatation. SPLEEN Normal in size and configuration. ADRENALS Normal bilaterally without mass. KIDNEYS Normal in size and configuration. No hydronephrosis, nephrolithiasis, or dominant renal mass. RETROPERITONEUM No retroperitoneal mass or lymphadenopathy. AORTA AND VESSELS Visualized abdominal aorta is normal in caliber and contour without aneurysm or significant stenosis. BOWEL AND MESENTERY No bowel dilatation or focal mural thickening. No free or loculated intraperitoneal fluid. No mesenteric stranding or lymphadenopathy. ABDOMINAL WALL Diffuse soft tissue edema compatible with anasarca. LUNG BASES AND THORAX (LIMITED FIELD) Cardiomegaly is present. Bilateral pleural effusions are noted, with right effusion measuring up to approximately 4.8 cm in thickness and left effusion up to approximately 5.0 cm. Visualized bilateral lower lobes demonstrate imaging features of cardiogenic pulmonary edema. BONES No acute or aggressive osseous lesion. IMPRESSION * Cardiomegaly with bilateral pleural effusions and cardiogenic pulmonary edema, diffuse anasarca, fatty liver, and a moderately distended gallbladder with marked diffuse wall thickening and sludge, collectively most consistent with systemic venous congestion and congestive hepatobiliary change in the setting of suspected heart failure; correlation with clinical status and echocardiography is advised if not already performed. * MRCP otherwise demonstrates a normal-caliber biliary and pancreatic ductal system without evidence of choledocholithiasis or obstructing biliary lesion. /Tarrs DICTATED BY: DARREL GEORGE Jr., MD DATE: 06/19/251499 ELECTRONICALLY SIGNED BY: DARREL GEORGE Jr., MD DATE: 06/19/251499 PATIENT: HUGO WYLIE MR#: [id number] : 1955 SEX: F AGE: 69 LOCATION: [facility] ORDER 1032 STATUS: ADM IN REPORT#: [id number] SERVICE 1028 REASON: RESP FAILURE ORDERING PHYSICIAN: SHMUEL DOLL PROCEDURE: CXR1VW - CHEST 1VW EXAM: CR Chest, 1 View. CLINICAL HISTORY: RESP FAILURE COMPARISON: CR: CHEST 1VW 06/18/2025 03:49 AM PERIANESTHESIA MANAGER FINDINGS: Right central line is seen with tip at the cavoatrial junction. Unchanged. LUNGS: Still seen right basilar infiltrates. Newly visualized left basal hazy opacification. Likely due to poor inspiratory effort in the current study. PLEURAL SPACES: No pneumothorax. Questionable right pleural effusion vs pleural thickening. MEDIASTINUM: Stable cardiomegaly with mild pulmonary vascular congestion. BONES: No aggressive appearing osseous lesion seen. Cervical fixation is still seen. IMPRESSION: 1. Right basilar infiltrates consistent with pneumonia vs congestive changes. Unchanged since the previous study. 2. Newly visualized left basal hazy opacification. Likely due to poor inspiratory effort in the current study. 3. Questionable right pleural effusion vs pleural thickening. 4. Stable cardiomegaly with bilateral vascular congestion mainly hilar. /Tarrs DICTATED BY: GIANLUCA ADAN MD DATE: 06/18/251738 ELECTRONICALLY SIGNED BY: GIANLUCA ADAN MD DATE: 06/18/251738 PATIENT: HUGO WYLIE MR#: [id number] : 1955 SEX: F AGE: 69 LOCATION: [facility] ORDER 07 STATUS: ADM IN REPORT#: [id number] SERVICE 1207 REASON: encephalopathy ORDERING PHYSICIAN: VY FOOTE MD PROCEDURE: HEAD WO - CT HEAD/BRAIN W/O CONTRAST EXAM: CT SCAN OF THE BRAIN WITHOUT CONTRAST CLINICAL HISTORY: Encephalopathy. TECHNIQUE: Axial computed tomography images of the head and brain were obtained without intravenous contrast. Coronal and sagittal reformatted images were obtained. Radiation dose reduction was achieved using ALARA (as low as reasonably achievable) principles including automatic exposure control, adjustment of mA and/or kV according to patient size and weight, and the use of iterative reconstruction techniques. RADIATION DOSE: CTDIvol 40.80 mGy; DLP 861.60 mGycm. CONTRAST: No intravenous contrast administered. COMPARISON: None provided. FINDINGS: Brain parenchyma: Focal area of encephalomalacia is present in the right occipitaltemporal region with associated volume loss. No acute intraparenchymal hemorrhage, mass, or mass effect is identified. White matter: Scattered hypodense foci in the bilateral periventricular and subcortical white matter are most compatible with chronic small vessel ischemic change. Graywhite matter differentiation is preserved. Ventricles and cisterns: Mild prominence of the ventricular system, sulcal spaces, basal cisterns, and sylvian fissures, in keeping with age-related cerebral volume loss. Mild ex vacuo dilatation of the occipital horn of the right lateral ventricle adjacent to the area of encephalomalacia. No hydrocephalus or midline shift is seen. Extra-axial spaces: Extra-axial spaces are mildly prominent, consistent with generalized cerebral atrophy. No acute extra-axial fluid collection or hemorrhage is demonstrated. Posterior fossa: Brainstem and cerebellum are unremarkable without focal abnormality. Sellar/parasellar region: Pituitary gland, optic chiasm, and pineal region appear unremarkable. CP angles and IACs: Cerebellopontine angle cisterns and internal auditory canals are clear and unremarkable. Skull and sinuses: Calvarium and skull base demonstrate normal bone density without acute fracture or destructive osseous lesion. The visualized paranasal sinuses are clear. IMPRESSION: * No CT evidence of acute intracranial hemorrhage, mass effect, or acute territorial infarct in this patient with encephalopathy. 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 * Mild generalized cerebral atrophy with chronic small vessel ischemic changes in the supratentorial white matter, in keeping with age-related and microvascular disease. /Tarrs DICTATED BY: GIANLUCA ADAN MD DATE: 06/17/251644 ELECTRONICALLY SIGNED BY: GIANLUCA ADAN MD DATE: 06/17/251644 PATIENT: HUGO WYLIE MR#: [id number] : 1955 SEX: F AGE: 69 LOCATION: [facility] ORDER 99 STATUS: ADM IN REPORT#: [id number] SERVICE 9 REASON: chf ORDERING PHYSICIAN: SHMUEL DOLL PROCEDURE: CXR1VW - CHEST 1VW EXAM: CR Chest, 1 View. CLINICAL HISTORY: chf COMPARISON: 06/16/2025 FINDINGS: The right PICC line tip is at the SVC. LUNGS: Interval improvement in bilateral perihilar and bibasilar airspace disease. PLEURAL SPACES: No evidence of pleural effusion or pneumothorax. MEDIASTINUM: Mild cardiomegaly. Interval reduction in pulmonary vascular congestion. BONES: No acute osseous abnormality. Lower cervical spine implants. IMPRESSION: 1. Interval improvement in bilateral perihilar and bibasilar airspace disease with reduction in pulmonary vascular congestion. 2. Mild stable cardiomegaly. 3. Right PICC line tip at the SVC. /Tarrs DICTATED BY: DARREL GEORGE Jr., MD DATE: 06/17/251057 ELECTRONICALLY SIGNED BY: DARREL GEORGE Jr., MD DATE: 06/17/251057 PATIENT: HUGO WYLIE MR#: [id number] : 1955 SEX: F AGE: 69 LOCATION: [facility] ORDER 99 STATUS: ADM IN REPORT#: [id number] SERVICE 06 REASON: pulmonary edema ORDERING PHYSICIAN: KINSEY TENORIO MD PROCEDURE: CXR1VW - CHEST 1VW EXAM: CR Chest, 1 View. CLINICAL HISTORY: pulmonary edema COMPARISON: 06/14/2025 FINDINGS: A right PICC tip is seen at the proximal superior vena cava. LUNGS: Stable bilateral interstitial and patchy airspace opacities, more evident at the lower lobes, represent pulmonary edema. PLEURAL SPACES: No pneumothorax. Stable small left pleural effusion. MEDIASTINUM: Stable cardiomegaly with pulmonary vascular congestion. BONES: No acute osseous abnormality. Cervical spine implants. IMPRESSION: 1. Stable bilateral pulmonary edema, more prominent in the lower lobes, with cardiomegaly and pulmonary vascular congestion. 2. Stable small left pleural effusion. 3. Right PICC tip at proximal superior vena cava. Overall, in comparison to the previous chest radiograph, there have been no significant interval changes. /Tarrs DICTATED BY: DARREL GEORGE Jr., MD DATE: 06/17/25 111 ELECTRONICALLY SIGNED BY: DARREL GEORGE Jr., MD DATE: 06/17/25 111 PATIENT: HUGO WYLIE MR#: [id number] : 1955 SEX: F AGE: 69 LOCATION: [facility] ORDER 112 STATUS: ADM IN REPORT#: [id number] SERVICE 22 REASON: check for aortic valve vegatations and EF ORDERING PHYSICIAN: KINSEY TENORIO MD PROCEDURE: ECHO FU LD - ECHO 2-D F/U-LTD APPROVED REPORT EXAM: Limited 3D/Two-dimensional echocardiogram with color Doppler. INDICATION ICD: Assess aortic valvular vegetation and assess ejection fraction 2D Dimensions LVED Vol(simp.) 139.0 mL LVES Vol(simp.) 59.0 mL LVEF(%, simp.) 58 % Deformation Strain Apical 4 -14.5 % Apical 2 -19.7 % Apical 3 -19.3 % Global Strain -17.8 % Left Ventricle Left ventricular cavity size is normal. GLS -18.0% There is normal left ventricular wall thickness. LVEF is 55-60%. Aortic Valve Aortic valve is trileaflet and opens well. Multiple vegeations seen on the aortic valve lealfelts. Large RCC leaflet vegetation seen protruding into the LVOT. Small vegetations seen on the LCC/NCC leaflets. No significant changed se en compared to previous echocardiogram. Other Information Quality : Limited/Follow-up DICTATED BY: JOHN VERA MD DATE: 06/14/25 1320 ELECTRONICALLY SIGNED BY: JOHN VERA MD DATE: 06/14/252036 PATIENT: HUGO WYLIE MR#: [id number] : 1955 SEX: F AGE: 69 LOCATION: [facility] ORDER 8 STATUS: ADM IN REPORT#: [id number] SERVICE 6 REASON: pulmonary congestion ORDERING PHYSICIAN: KINSEY TENORIO MD PROCEDURE: CXR1VW - CHEST 1VW EXAM: CR CHEST, 1 VIEW CLINICAL HISTORY: pulmonary congestion ,CHF COMPARISON: CR: CHEST 1VW dated 06/12/2025 06:14 AM EST: TECHNIQUE: Single frontal radiograph of the chest was obtained. FINDINGS: Lines/Devices: A right PICC is present with its tip seen at the proximal part of the superior vena cava. Lungs: Progressive course as regards the previously noted bilateral interstitial and patchy airspace opacities., more evident at the lower lobes. Newly developed blunted left costophrenic angle suggestive of a mild left pleural effusion. There is no pneumothorax. Mediastinum and cardiovascular structures: The cardiac silhouette is mildly enlarged. Prominent aortic knuckle is noted. The central airway and mediastinal contours are otherwise unremarkable. Bones and soft tissues: Evidence of fixation of the lower cervical spine is noted. Soft tissues are unremarkable. IMPRESSION: 1. Progressive bilateral bilateral interstitial and patchy airspace opacities, more evident at the lower lobes. 2. Newly developed blunted left costophrenic angle suggestive of a mild left pleural effusion. 3. Mild cardiomegaly. 4. Stable prominent aortic knuckle. 5. As compared to the CR: CHEST 1VW dated 06/12/2025 06:14 AM EST: , progressive course as regards the previously noted bilateral interstitial as well as patchy pulmonary opacities,stationary course as regards the cardiomegaly. Right PICC still seen in situ. Newly developed minimal left pleural effusion. /Tarrs DICTATED BY: GIANLUCA AADN MD DATE: 06/14/252251 ELECTRONICALLY SIGNED BY: GIANLUCA ADAN MD DATE: 06/14/252251 PATIENT: HUGO WYLIE MR#: [id number] : 1955 SEX: F AGE: 69 LOCATION: [facility] ORDER 2300 STATUS: ADM IN REPORT#: [id number] SERVICE 0600 REASON: CHF ORDERING PHYSICIAN: VY FOOTE MD PROCEDURE: CXR1VW - CHEST 1VW EXAM: CR Chest, 1 View. CLINICAL HISTORY: CHF COMPARISON: 06/11/2025 FINDINGS: The right PICC line tip is at the SVC. LUNGS: Interval improvement in the bilateral interstitial and patchy airspace opacities. PLEURAL SPACES: No pleural effusion or pneumothorax. MEDIASTINUM: Mild stable cardiomegaly with pulmonary vascular congestion. BONES: No aggressive appearing osseous lesion seen. Cervical spine fusion hardware. IMPRESSION: 1. Bilateral interstitial and patchy airspace opacities, reduced since the prior study. 2. Mild stable cardiomegaly. 3. Right PICC line tip at the SVC. /Tarrs DICTATED BY: DARREL GEORGE Jr., MD DATE: 06/12/251035 ELECTRONICALLY SIGNED BY: DARREL GEORGE Jr., MD DATE: 06/12/251035 PATIENT: HUGO WYLIE MR#: [id number] : 1955 SEX: F AGE: 69 LOCATION: [facility] ORDER 1204 STATUS: ADM IN REPORT#: [id number] SERVICE 1203 REASON: PICC placement ORDERING PHYSICIAN: VY FOOTE MD PROCEDURE: CXR1VW - CHEST 1VW CHEST 1VW REASON: PICC placement COMPARISON: Prior chest radiograph from 06/08/2025 is available. FINDINGS: Single view of the chest was obtained. There is cardiomegaly. There is diffuse interstitial pulmonary edema. There is a right-sided PIC catheter with tip in distal superior vena cava.. Mediastinum and bony thorax appear unremarkable. There is surgical changes with interpedicular screws and rods in the cervical spine there is anterior cervical disc fusion with orthopedic plate IMPRESSION: 1. The PICC catheter with the tip in the distal superior vena cava in satisfactory position 2. Cardiomegaly with interstitial pulmonary edema DICTATED BY: NARCISO ANTONIO MD DATE: 06/09/25 1228 ELECTRONICALLY SIGNED BY: NARCISO ANTONIO MD DATE: 06/09/25 1233 PATIENT: HUGO WYLIE MR#: [id number] : 1955 SEX: F AGE: 69 LOCATION: [facility] ORDER 16 STATUS: ADM IN REPORT#: [id number] SERVICE 0000 REASON: acute chf exacerbation sob ORDERING PHYSICIAN: RIGOBERTO TADEO PROCEDURE: ECHO CMP - ECHO 2-D COMPLETE APPROVED REPORT EXAM: Two-dimensional and M-mode echocardiogram with Doppler and color Doppler. INDICATION ICD: Acute congestive heart failure, shortness of breath 2D Dimensions RVDd 3.1 cm LVEF(%) 26.1 (>50%) LA ESV INDEX (BP) 35.28 mL/m2 IVSd 1.0 (0.7-1.1cm) FS(%) 12 % LVDd 5.0 (3.8-5.6cm) LA (2D) 4.3 (1.6-4.0cm) PWd 1.0 (0.7-1.1cm) Ao Root(2D) 3.4 (2.0-3.7cm) IVSs 1.0 cm LVOT diam 1.9 (1.8-2.4cm) LVDs 4.4 (2.5-4.0cm) PWs 1.6 cm Aortic Valve AoV Vmax 2.2 m/s Ao Peak GR 18.9 mmHg LVOT Vmax 1.6 m/s AoV VTI 0.3 m Ao Mean GR 9.2 mmHg LVOT VTI 0.24 m PATTIE (VMAX) 2.03 cm2 Al P1/2T 129 ms PATTIE (VTI) 2.0 cm2 Mitral Valve MV E Vmax 144.1 cm/s DECEL Time 105 ms MV A Vmax 82.2 cm/s P 1/2 T 34 ms E/A ratio 1.8 MVA (PHT) 6.5 cm2 TDI E/E' Medial 31.4 E/E' Lateral 15.7 Medial E' Peak V 4.59 cm/s Lateral E' Peak V 9.15 cm/s Pulmonary Valve PV Vmax 1.1 m/s PV Mean GR 2.1 mmHg PV Peak GR 4.6 mmHg Tricuspid Valve TR Vmax 2.1 m/s RAP (EST) 8 mmHg RVSP 26.1 mmHg TR Peak GR 18.1 mmHg Left Ventricle The left ventricle is normal size. There is normal LV segmental wall motion. There is normal left ventricular wall thickness. LVEF is 50-55%. The left ventricular diastolic function is normal. Right Ventricle The right ventricle is normal size. The right ventricular systolic function is normal. Atria The left atrium is mildly dilated. The right atrium is mildly dilated. Aortic Valve Aortic valve is trileaflet and opens well. Difficult to assess severity of aortic insufficiency. Would estimate [id number] Multiple vegetations seen on the aortic valve leafelts. Large Right coronary cusp leaflet vegetation seen protruding into the LVOT. Small non coronary cusp leaflet vegetation seen. Small left coronary cusp leaflet vegetation noted. There is no aortic valvular stenosis. Mitral Valve The mitral valve is normal in structure. There is moderate mitral valve regurgitation noted. There is no mitral valve stenosis. Tricuspid Valve The tricuspid valve is normal in structure. There is no tricuspid valve regurgitation noted. Pulmonic Valve The pulmonary valve is normal in structure. There is mild pulmonic valvular regurgitation. Great Vessels The aortic root is normal in size. IVC is not well visualized. Pericardium There is trivail pericardial effusion seen posteriorly Other Information Quality : Technically challenging study due to body habitus and limited cooperation of pt Conclusion LVEF is 50-55%. LVEF is 50-55%. Multiple vegetations seen on the aortic valve leafelts. Large Right coronary cusp leaflet vegetation seen protruding into the LVOT. Small non coronary cusp leaflet vegetation seen. Small left coronary cusp leaflet vegetation noted. Difficult to assess severity of aortic insufficiency. Would estimate [id number] There is moderate mitral valve regurgitation noted. DICTATED BY: BEN BROWN MD DATE: 06/09/25 0717 ELECTRONICALLY SIGNED BY: BEN BROWN MD DATE: 06/09/25 1314 PATIENT: HUGO WYLIE MR#: [id number] : 1955 SEX: F AGE: 69 LOCATION: [facility] ORDER 29 STATUS: ADM IN REPORT#: [id number] SERVICE 28 REASON: r/p P.E. ORDERING PHYSICIAN: JOHN NGUYEN PROCEDURE: CHES PE - CT CHEST PE PROTOCOL WWO CONT EXAM: CTA examination of the chest CLINICAL HISTORY: Rule out pulmonary embolism. TECHNIQUE: Postcontrast thin collimated axial CTA images of the chest were obtained with sagittal and coronal reformatted images also submitted. CT scan is done according to ALARA (As Low as Reasonably Achievable). COMPARISON: None provided. FINDINGS: Moderate pleural effusions bilaterally. Compressive atelectasis and consolidations in the bilateral lower lobes of the lung. Multifocal infiltrates and smooth interstitial thickening in the bilateral lung alejandro, reflecting multifocal pneumonia and pulmonary edema. No pneumothorax or masses evident. Small to medium pericardial effusion. Mild to moderate cardiomegaly. Calcific atherosclerotic disease in the thoracic aorta and coronary arteries. No thoracic aortic aneurysm. Dilated pulmonary trunk measures up to 4.4 cm in diameter. Perihilar vascular congestion. No filling defect or pulmonary thromboembolism is evident Mildly reactive mediastinal lymph nodes. Incidental thyroid nodules. Incidental mildly thickened bilateral adrenal glands. Atherosclerotic calcifications in the abdominal vessels. No acute bony abnormality is evident. Degenerative osseous changes. Chronic compression fracture in the T12 vertebral body with about 70% to 80% height reduction. IMPRESSION: No pulmonary thromboembolism. Small to medium pericardial effusion, cardiomegaly, pulmonary vascular congestion, pulmonary edema, and multifocal pneumonia in the bilateral lung alejandro. Moderate pleural effusions bilaterally. Compressive atelectasis and consolidations in the bilateral lower lobes of the lung. Mildly reactive mediastinal lymph nodes. No pneumothorax. Incidental thyroid nodules recommend ultrasound correlation. Incidental mildly enlarged bilateral adrenal glands, recommend a contrast-enhanced MRI of the adrenals for further characterization, if clinically indicated. /Tarrs DICTATED BY: DARREL GEORGE Jr., MD DATE: 06/09/25155 ELECTRONICALLY SIGNED BY: DARREL GEORGE Jr., MD DATE: 06/09/25155 PATIENT: HUGO WYLIE MR#: [id number] : 1955 SEX: F AGE: 69 LOCATION: [facility] ORDER 51 STATUS: REG ER REPORT#: [id number] SERVICE 49 REASON: SHORTNESS A BREATH ORDERING PHYSICIAN: OLVIN DING SIGNAL INTELLIGENCE ANALYST PROCEDURE: CXR1VW - CHEST 1VW EXAM: CR Chest, 1 View. CLINICAL HISTORY: SHORTNESS A BREATH COMPARISON: None provided. FINDINGS: There is bilateral perihilar and bibasilar airspace disease that may reflect pulmonary edema. Small bilateral pleural effusions. No pneumothorax. Mild to moderate cardiomegaly and pulmonary vascular congestion. IMPRESSION: 1. Bilateral perihilar and bibasilar airspace disease, possibly representing pulmonary edema, with small bilateral pleural effusions. 2. Mild to moderate cardiomegaly and pulmonary vascular congestion. /Tarrs DICTATED BY: DARREL GEORGE Jr., MD DATE: 06/08/251949 ELECTRONICALLY SIGNED BY: DARREL GEORGE Jr., MD DATE: 06/08/251949 ASSESSMENT: Hyponatremia Acute on chronic renal failure Acute hypoxic resp failure requiring BIPAP-POA Sepsis 2/2 community acquired pneumonia-POA NSTEMI-likely type II 2/2 demand ischemia from hypoxia vs. true cardiac etiology-POA- negative for chest pain or ST/T wave abnormality. HEART score 6 points=12-16.6% risk for MACE Possible new-onset CHF with exacerbation-POA Hyperlactatemia-POA Acute infectious encephalopathy-POA Suspected new-onset COPD with exacerbation-POA, in the setting of chronic nicotine disorder Pulmonary edema-POA Bilateral pleural effusions-POA Moderate hyponatremia, suspected acute-POA Sleep deprivation 2/2 current illness-POA History of paroxysmal AFib Chronic nicotine disorder: 08-osch-fals HX Prior CVA Neck and back surgery Detached retina Hyperthyroid disorder/Graves disease with right thyroid nodule HX of left greater trochanter fracture Medical non-compliance, HX of AMA last hospitalization in [facility] PLAN: Labs, diagnostic, radiologic exams reviewed and interpreted by myself and supervising physician. We have reviewed external records in detail Hematology workup is ongoing Require close monitoring of renal function and electrolytes Order CBC, CMP, and electrolytes in am Continue with antibiotics as per ID BiPAP as necessary, for respiratory distress IV pressors as needed Monitor blood pressure adjust medication doses as needed Avoid hypotensive episodes May use Dilaudid 0.5 mg IV every 6 hours as needed for severe pain Monitor blood sugars Strict intake, output, and daily weight should be monitored Please renally adjust medications Avoid nephrotoxic and nonsteroidal drugs Avoid contrast if possible Will continue to monitor renal function, anemia, electrolytes Treatment plan discussed with patient Questions were answered We have discussed with the other team physicians in detail about the care plan We will continue to monitor the patient closely Total critical care time spent with patient, nursing staff, critical care team over 35 minutes ATTESTATION BY PHYSICIAN I have seen and examined the patient. I reviewed the documentation, medical decision making, and treatment plan as noted by the mid-level provider above. I agree with the findings and plan of care. FLAVIA METCALF MD, [facility] Jun 20, 2025 10:41
--- NOTE | 2025-06-20 11:06 | PN ---
Ms. Jang is a 69-year-old female with a past medical history of emphysema, atrial fibrillation, and hyperthyroidism who was admitted on June 08 and consulted for altered mental status approximately one week after admission. She initially presented with 3 weeks of generalized weakness and was diagnosed with acute congestive heart failure exacerbation and COPD exacerbation, for which she was treated with prednisone. During her hospitalization, she developed aortic insufficiency due to multiple vegetations and was diagnosed with endocarditis, requiring treatment with cefepime, vancomycin, and doxycycline. She also required norepinephrine drip support. The patient experienced significant altered mental status during her hospitalization, described as being "out of place," constantly screaming, and very confused. However, at the time of this consultation, her mental status had markedly improved - she was able to follow commands and accurately state her location. She denied having any headaches or neck stiffness when questioned directly. Platelet count actually dropped to 22k There is no obvious bleeding PHYSICAL EXAM EYES: Anicteric. Pupils equal and reactive. HENT: No oral thrush seen, moist Oral mucosa NECK: Supple, no JVD or thyromegaly. LUNGS: Good air entry. No rales, no rhonchi. CARDIOVASCULAR: S1, S2 regular. No murmur heard. ABDOMEN: Soft, non tender, bowel sounds present, no organomegaly CENTRAL NERVOUS SYSTEM: Awake, alert, oriented x 3. No focal deficits. SKIN: No rashes, no swelling. LYMPHATICS: No peripheral lymphadenopathy MUSCULOSKELETAL: No joint swelling, erythema or tenderness. EXTREMITIES: No cyanosis or clubbing BACK: No deformity, no pressure ulcer. GENITOURINARY: No dysuria or hematuria Assessment 1. Anemia. Hemoglobin level 8.2 g/deciliter 2. Thrombocytopenia. Suspicious for heparin-induced thrombocytopenia with the patient was started on Arixtra. 3. Leukocytosis. White blood count 19K 4. Change mental status 5. Chronic renal insufficiency 6. COPD 7. Endocarditis with aortic valve vegetation 8. Right occipital temporal embolic stroke Plan 1. Peripheral blood smear showed red blood cells to be normocytic normochromic. There was no fragment cell or schistocyte. There is no teardrop cell. There is no rouleaux phenomena. There is no pelger-Huet cell. White blood cell with no blasts. There is decreased number of the platelet. There is no clumping of the platelet. There is large platelet consistent with peripheral consumption. This patient received heparin and Lovenox in the past with the patient could have heparin-induced thrombocytopenia. This patient also could have DIC. With the patient also receiving fresh frozen plasma and fibrinogen level now become more than 100. 2. Please do not transfuse any platelet 3. Will ask for HIT antibodies 4. Continue on Arixtra 2.5 mg subcu daily 5. Will ask for CBC, fibrinogen level and Chem-7 to be done in the morning. This patient may be will need a cryoprecipitate transfusion 6. Continue care as per primary 7. This patient with poor prognosis. But the patient continued to be full code. Vitals/Labs Vital Signs Date Time Temp Pulse Resp B/P (MAP) Pulse Ox O2 Delivery O2 Flow Rate FiO2 06/20/25 09:19 97.7 06/20/25 09:00 96 15 138/54 97 Nasal Cannula 8.0 06/20/25 08:00 60 Laboratory Tests 06/20/25 06:35 Medications Current Medications Methylprednisolone Sodium Succinate 125 mg ONCE ONCE IVP Last administered on 06/08/25at 17:19; Start 06/08/25 at 17:00; Stop 06/08/25 at 17:16; Status DC Albuterol 2 udvial ONCE ONCE IH Last administered on 06/08/25at 17:41; Start 06/08/25 at 17:00; Stop 06/08/25 at 17:16; Status DC Methylprednisolone Sodium Succinate 125 mg STK-MED ONCE .ROUTE; Start 06/08/25 at 17:12; Stop 06/08/25 at 17:12; Status DC Levofloxacin/ Dextrose 750 mg ONCE ONCE IV Last administered on 06/08/25at 19:26; Start 06/08/25 at 17:30; Stop 06/08/25 at 17:34; Status DC Sodium Chloride 1,000 ml @ 0 mls/hr ONCE ONCE IV; Start 06/08/25 at 18:00; Stop 06/08/25 at 17:59; Status DC Sodium Chloride 500 ml @ 0 mls/hr ONCE ONCE IV Last administered on 06/08/25at 18:05; Start 06/08/25 at 18:00; Stop 06/08/25 at 18:03; Status DC Furosemide 80 mg ONCE ONCE IVP; Start 06/08/25 at 18:00; Stop 06/08/25 at 18:01; Status Cancel Pantoprazole Sodium 40 mg ONCE ONCE PO; Start 06/08/25 at 18:30; Stop 06/08/25 at 18:31; Status DC Furosemide 40 mg STK-MED ONCE .ROUTE; Start 06/08/25 at 19:29; Stop 06/08/25 at 19:30; Status DC Furosemide 80 mg ONCE ONCE IVP; Start 06/08/25 at 20:00; Stop 06/08/25 at 20:01; Status DC Furosemide 80 mg ONCE ONCE IVP; Start 06/08/25 at 20:00; Stop 06/08/25 at 19:54; Status DC Morphine Sulfate 2 mg ONCE ONCE IVP; Start 06/08/25 at 20:00; Stop 06/08/25 at 20:05; Status DC Dexmedetomidine/ Sodium Chloride 400 mcg PROTOCOL IV Last administered on 06/11/25at 09:27; Start 06/08/25 at 20:00; Stop 06/11/25 at 17:00; Status DC Dexmedetomidine/ Sodium Chloride 400 mcg STK-MED ONCE IV; Start 06/08/25 at 20:02; Stop 06/08/25 at 20:02; Status DC Acetaminophen 650 mg Q6H PRN PO Last administered on 06/12/25at 20:47; Start 06/08/25 at 20:30; Stop 07/08/25 at 20:29 Acetaminophen 650 mg Q4H PRN PO Last administered on 06/12/25at 10:16; Start 06/08/25 at 20:30; Stop 07/08/25 at 20:29 Ondansetron HCl 4 mg Q6H PRN IV; Start 06/08/25 at 20:30; Stop 07/08/25 at 20:29 Albuterol 1 udvial [id number] IH Last administered on 06/20/25at 06:50; Start 06/08/25 at 22:00; Stop 07/08/25 at 21:59 Furosemide 40 mg BID IVP Last administered on 06/11/25at 09:32; Start 06/08/25 at 21:00; Stop 06/11/25 at 17:00; Status DC Famotidine 20 mg DAILY IV Last administered on 06/09/25at 08:39; Start 06/09/25 at 09:00; Stop 06/09/25 at 13:09; Status DC Levofloxacin/ Dextrose 100 ml @ 100 mls/hr Q24H IV; Start 06/09/25 at 20:00; Stop 06/08/25 at 22:40; Status DC Morphine Sulfate 1 mg ONCE ONCE IVP Last administered on 06/08/25at 20:36; Start 06/08/25 at 20:30; Stop 06/08/25 at 20:31; Status DC Furosemide 40 mg ONCE ONCE IV Last administered on 06/08/25at 21:18; Start 06/08/25 at 21:00; Stop 06/08/25 at 21:01; Status DC Doxycycline Hyclate 250 ml @ 125 mls/hr Q12H IV Last administered on 06/18/25at 11:06; Start 06/08/25 at 23:00; Stop 06/18/25 at 22:59; Status DC Piperacillin Sod/ Tazobactam Sod 3.375 gm Q8H IV Last administered on 06/10/25at 07:10; Start 06/08/25 at 23:00; Stop 06/10/25 at 09:08; Status DC Nicotine 21 mg DAILY TD Last administered on 06/20/25at 08:29; Start 06/08/25 at 23:00; Stop 07/08/25 at 22:59 Iohexol 50 ml STK-MED ONCE IV; Start 06/08/25 at 23:38; Stop 06/08/25 at 23:38; Status DC Norepinephrine 250 ml @ As Directed STK-MED ONCE IV; Start 06/09/25 at 00:30; Stop 06/09/25 at 00:31; Status DC Norepinephrine 250 ml @ 0 mls/hr PROTOCOL IV Last administered on 06/17/25at 05:41; Start 06/09/25 at 01:00; Stop 07/09/25 at 00:59 Pharmacy Profile Note 1 each ONCE MISC; Start 06/09/25 at 03:00; Stop 06/09/25 at 03:24; Status DC Heparin Sodium (Porcine) *calculation based on ACTUAL B... AD PRN IV; Start 06/09/25 at 04:00; Stop 06/15/25 at 14:01; Status DC Heparin Sodium/ Dextrose 250 ml @ 0 mls/hr Q6H IV Last administered on 06/15/25at 02:42; Start 06/09/25 at 04:00; Stop 06/15/25 at 13:58; Status DC Heparin Sodium (Porcine) 5,000 unit ONCE ONCE IV Last administered on 06/09/25at 05:30; Start 06/09/25 at 05:30; Stop 06/09/25 at 05:31; Status DC Sodium Bicarbonate 150 meq/Sodium Chloride 1,150 ml @ 100 mls/hr [id number] IVP; Start 06/09/25 at 12:00; Stop 06/09/25 at 12:29; Status DC Ziprasidone 10 mg Q6H ONCE IM Last administered on 06/09/25at 12:24; Start 06/09/25 at 12:21; Stop 06/09/25 at 12:23; Status DC Ziprasidone 20 mg STK-MED ONCE IM; Start 06/09/25 at 12:22; Stop 06/09/25 at 12:22; Status DC Sodium Bicarbonate 100 meq ONCE ONCE IV Last administered on 06/09/25at 13:39; Start 06/09/25 at 12:30; Stop 06/09/25 at 12:36; Status DC Oseltamivir Phosphate 75 mg BID PO Last administered on 06/10/25at 09:03; Start 06/09/25 at 21:00; Stop 06/10/25 at 09:08; Status DC Ziprasidone 10 mg Q6H PRN IM Last administered on 06/11/25at 17:28; Start 06/09/25 at 18:00; Stop 06/17/25 at 12:13; Status DC Dorzolamide/ Timolol 1 DROP BID OP Last administered on 06/20/25at 08:33; Start 06/09/25 at 21:00; Stop 07/09/25 at 20:59 Latanoprost 1 DROP HS OD Last administered on 06/19/25at 21:46; Start 06/09/25 at 21:00; Stop 07/09/25 at 20:59 Home Med (Methimazole 5MG TAB) - 0.5 TAB... DAILY PO Last administered on 06/20/25at 08:33; Start 06/10/25 at 09:00; Stop 07/10/25 at 08:59 Methylprednisolone Sodium Succinate 40 mg Q8H IVP Last administered on 06/12/25at 13:23; Start 06/09/25 at 13:30; Stop 06/12/25 at 14:11; Status DC Budesonide 0.5 mg BIDRESP IH Last administered on 06/20/25at 06:50; Start 06/09/25 at 18:00; Stop 07/09/25 at 17:59 Pantoprazole Sodium 40 mg DAILY IVP Last administered on 06/20/25at 08:29; Start 06/10/25 at 09:00; Stop 07/10/25 at 08:59 Potassium Chloride 100 ml @ 100 mls/hr AD PRN IV Last administered on 06/18/25at 16:46; Start 06/09/25 at 17:00; Stop 07/09/25 at 16:59 Potassium Chloride 20 meq AD PRN PO; Start 06/09/25 at 17:00; Stop 07/09/25 at 16:59 Potassium Chloride 20 meq AD PRN PO; Start 06/09/25 at 17:00; Stop 07/09/25 at 16:59 Potassium Chloride 100 ml @ 50 mls/hr AD PRN IV Last administered on 06/09/25at 21:18; Start 06/09/25 at 17:00; Stop 06/11/25 at 06:10; Status DC Magnesium Sulfate 50 ml @ 0 mls/hr PROTOCOL PRN IV Last administered on 06/12/25at 03:21; Start 06/09/25 at 17:00; Stop 07/09/25 at 16:59 Sodium Bicarbonate 50 meq ONCE ONCE IV Last administered on 06/10/25at 09:03; Start 06/10/25 at 09:00; Stop 06/10/25 at 09:01; Status DC Cefepime HCl 1 gm Q8H IVPB; Start 06/10/25 at 09:30; Stop 06/10/25 at 09:41; Status DC Vancomycin HCl 1 each AD IV; Start 06/10/25 at 09:30; Stop 06/11/25 at 11:15; Status DC Vancomycin HCl 250 ml @ 125 mls/hr ONCE ONCE IV Last administered on 06/10/25at 09:41; Start 06/10/25 at 10:00; Stop 06/10/25 at 11:59; Status DC Vancomycin HCl 250 ml @ 125 mls/hr Q24H IV Last administered on 06/11/25at 09:31; Start 06/11/25 at 10:00; Stop 06/11/25 at 11:15; Status DC Cefepime HCl 1 gm Q12H IVPB Last administered on 06/10/25at 14:23; Start 06/10/25 at 14:00; Stop 06/10/25 at 14:35; Status DC Olanzapine 5 mg BID PO Last administered on 06/16/25at 21:24; Start 06/10/25 at 21:00; Stop 06/17/25 at 12:13; Status DC Metronidazole/ Sodium Chloride 100 ml @ 100 mls/hr Q8H6 IVPB Last administered on 06/20/25at 05:13; Start 06/10/25 at 14:00; Stop 06/20/25 at 13:59 Midodrine 5 mg TID PO Last administered on 06/10/25at 20:08; Start 06/10/25 at 14:00; Stop 06/11/25 at 08:52; Status DC Midodrine 5 mg ONCE ONCE PO Last administered on 06/10/25at 12:56; Start 06/10/25 at 12:00; Stop 06/10/25 at 12:01; Status DC Olanzapine 5 mg ONCE ONCE PO Last administered on 06/10/25at 13:20; Start 06/10/25 at 13:00; Stop 06/10/25 at 13:01; Status DC Cefepime HCl 1 gm Q12H9 IVPB Last administered on 06/20/25at 08:28; Start 06/10/25 at 21:00; Stop 06/24/25 at 13:59 Phytonadione 10 mg Q24H SQ Last administered on 06/10/25at 15:11; Start 06/10/25 at 15:00; Stop 06/10/25 at 16:55; Status DC Phytonadione 10 mg DAILY SQ Last administered on 06/13/25at 09:24; Start 06/11/25 at 09:00; Stop 06/13/25 at 15:00; Status DC Lorazepam 1 mg ONCE ONCE IVP Last administered on 06/10/25at 22:30; Start 06/10/25 at 22:30; Stop 06/10/25 at 22:31; Status DC Midodrine 10 mg TID PO Last administered on 06/14/25at 21:14; Start 06/11/25 at 09:00; Stop 06/15/25 at 13:58; Status DC Pharmacy Profile Note 1 each ONCE MISC; Start 06/11/25 at 11:30; Stop 06/11/25 at 11:19; Status DC Linezolid 300 ml @ 150 mls/hr Q12H IV; Start 06/11/25 at 11:30; Stop 06/11/25 at 12:38; Status DC Linezolid 300 ml @ 150 mls/hr Q12H IV Last administered on 06/18/25at 02:07; Start 06/11/25 at 14:30; Stop 06/18/25 at 12:55; Status DC Furosemide 20 mg BID IVP Last administered on 06/11/25at 21:26; Start 06/11/25 at 21:00; Stop 06/12/25 at 06:54; Status DC Metoprolol Tartrate 5 mg STK-MED ONCE IV Last administered on 06/12/25at 03:22; Start 06/12/25 at 03:07; Stop 06/12/25 at 03:07; Status DC Metoprolol Tartrate 2.5 mg Q6H PRN IV Last administered on 06/19/25at 14:15; Start 06/12/25 at 03:30; Stop 07/12/25 at 03:29 Metoprolol Tartrate 5 mg ONCE ONCE IV Last administered on 06/12/25at 05:18; Start 06/12/25 at 05:00; Stop 06/12/25 at 05:01; Status DC Amiodarone HCL/ Dextrose 100 ml @ 600 mls/hr PROTOCOL IV Last administered on 06/12/25at 05:10; Start 06/12/25 at 05:00; Stop 06/12/25 at 06:53; Status DC Amiodarone HCL/ Dextrose 200 ml @ 33.333 mls/ hr PROTOCOL IV Last administered on 06/12/25at 05:11; Start 06/12/25 at 05:00; Stop 06/12/25 at 06:53; Status DC Amiodarone HCl 540 mg/Dextrose 300 ml @ 16.667 mls/ hr PROTOCOL IV Last administered on 06/12/25at 11:33; Start 06/12/25 at 10:00; Stop 06/13/25 at 03:59; Status DC Amiodarone HCL/ Dextrose 100 ml @ 0 mls/hr PROTOCOL IV; Start 06/12/25 at 07:00; Stop 06/12/25 at 07:01; Status DC Furosemide 20 mg BID IVP Last administered on 06/12/25at 08:57; Start 06/12/25 at 09:00; Stop 06/12/25 at 09:19; Status DC Furosemide 40 mg BID IVP Last administered on 06/14/25at 08:24; Start 06/12/25 at 21:00; Stop 06/14/25 at 13:19; Status DC Furosemide 20 mg ONCE ONCE IV Last administered on 06/12/25at 09:52; Start 06/12/25 at 09:30; Stop 06/12/25 at 09:31; Status DC Metoprolol Tartrate 25 mg BID PO Last administered on 06/16/25at 21:24; Start 06/12/25 at 21:00; Stop 06/17/25 at 12:12; Status DC Methylprednisolone Sodium Succinate 40 mg Q12H9 IVP Last administered on 06/20/25at 08:29; Start 06/12/25 at 21:00; Stop 07/09/25 at 13:29 Fluticasone Propionate 1 SPRAY DAILY EN Last administered on 06/20/25at 08:32; Start 06/12/25 at 15:00; Stop 07/12/25 at 14:59 Lactulose 20 gm ONCE ONCE PO Last administered on 06/13/25at 09:14; Start 06/13/25 at 07:30; Stop 06/13/25 at 07:31; Status DC Lactulose 20 gm BID PRN PO; Start 06/13/25 at 07:30; Stop 07/13/25 at 07:29 Sodium Bicarbonate 100 meq ONCE ONCE IV Last administered on 06/13/25at 09:11; Start 06/13/25 at 08:30; Stop 06/13/25 at 08:31; Status DC Amiodarone HCl 200 mg BID ONCE PO Last administered on 06/13/25at 09:13; Start 06/13/25 at 09:00; Stop 06/13/25 at 09:14; Status DC Amiodarone HCl 200 mg BID PO Last administered on 06/20/25at 08:32; Start 06/13/25 at 21:00; Stop 07/13/25 at 20:59 Sodium Bicarbonate 650 mg BID PO; Start 06/13/25 at 11:30; Stop 06/13/25 at 11:58; Status DC Sodium Bicarbonate 1,300 mg BID PO Last administered on 06/20/25at 08:29; Start 06/13/25 at 21:00; Stop 07/13/25 at 20:59 Furosemide 40 mg Q8H6 IVP Last administered on 06/17/25at 05:22; Start 06/14/25 at 14:00; Stop 06/17/25 at 12:12; Status DC Enoxaparin Sodium 1 unit Q24H SQ; Start 06/15/25 at 14:00; Stop 06/15/25 at 14:01; Status DC Enoxaparin Sodium 70 mg Q24H SQ Last administered on 06/16/25at 14:39; Start 06/15/25 at 14:30; Stop 06/17/25 at 12:11; Status DC Pharmacy Profile Note 1 each ONCE MISC; Start 06/16/25 at 11:00; Stop 06/16/25 at 11:08; Status DC Dexmedetomidine/ Sodium Chloride 200 mcg PROTOCOL IV Last administered on 06/20/25at 02:54; Start 06/16/25 at 11:30; Stop 07/16/25 at 11:29 Dexmedetomidine/ Sodium Chloride 400 mcg STK-MED ONCE IV Last administered on 06/16/25at 11:15; Start 06/16/25 at 11:07; Stop 06/16/25 at 11:07; Status DC Potassium Chloride 100 ml @ 100 mls/hr AD PRN IV Last administered on 06/19/25at 06:17; Start 06/16/25 at 12:00; Stop 07/16/25 at 11:59 Pharmacy Profile Note 1 each ONCE MISC; Start 06/16/25 at 17:00; Stop 06/16/25 at 17:10; Status DC Amino Acids/ Electrolytes/ Dextrose 1,008 ml @ 42 mls/hr ONCE ONCE IV Last administered on 06/16/25at 20:19; Start 06/16/25 at 20:00; Stop 06/17/25 at 16:09; Status DC Sevelamer HCl 400 mg TIDMEALS PO; Start 06/17/25 at 12:00; Stop 06/17/25 at 15:36; Status DC Sodium Bicarbonate 100 meq ONCE ONCE IV Last administered on 06/17/25at 12:58; Start 06/17/25 at 13:00; Stop 06/17/25 at 13:01; Status DC Insulin Human Regular INSULIN SLIDING SCAL... ACHS SQ Last administered on 06/18/25at 08:53; Start 06/17/25 at 16:30; Stop 06/18/25 at 10:03; Status DC Dextrose 50 ml AD PRN IV; Start 06/17/25 at 14:30; Stop 07/17/25 at 14:29 Glucagon 1 mg AD PRN IM; Start 06/17/25 at 14:30; Stop 07/17/25 at 14:29 Amino Acids/ Electrolytes/ Dextrose 1,008 ml @ 42 mls/hr ONCE ONCE IV Last administered on 06/17/25at 22:16; Start 06/17/25 at 16:30; Stop 06/18/25 at 11:23; Status DC Sodium Bicarbonate 100 meq ONCE ONCE IV Last administered on 06/17/25at 17:16; Start 06/17/25 at 17:00; Stop 06/17/25 at 17:01; Status DC Insulin Human Regular INSULIN SLIDING SCAL... ACHS SQ Last administered on 06/20/25at 05:59; Start 06/18/25 at 11:30; Stop 07/18/25 at 11:29 Amino Acids/ Electrolytes/ Dextrose 1,008 ml @ 42 mls/hr ONCE ONCE IV Last administered on 06/18/25at 20:33; Start 06/18/25 at 20:00; Stop 06/19/25 at 19:59; Status DC Fondaparinux 2.5 mg DAILY SQ Last administered on 06/20/25at 08:29; Start 06/19/25 at 09:30; Stop 07/19/25 at 09:29 Metoprolol Tartrate 25 mg BID PO Last administered on 06/20/25at 08:29; Start 06/19/25 at 21:00; Stop 07/19/25 at 20:59 Midazolam HCl 2 mg ONCE ONCE IVP; Start 06/19/25 at 12:00; Stop 06/19/25 at 12:01; Status DC Doxycycline Hyclate 250 ml @ 125 mls/hr Q12H IV Last administered on 06/20/25at 00:14; Start 06/19/25 at 13:00; Stop 06/29/25 at 12:59 KRISTEN GO MD Jun 20, 2025 11:06
--- NOTE | 2025-06-20 11:26 | PN ---
[facility] PROGRESS NOTE Date Patient Seen: Jun 20, 2025 Time of Visit: 11:17 Supervising Physician: [Bryce ] Primary Care Physician: [Dr. Yoel Pierson] Outpatient Specialists: [ ] Inpatient Consults: [[facility]-ICU ] PROBLEM LIST: Acute hypoxic respiratory failure present on admission Paroxysmal atrial fibrillation Sepsis 2/2 community acquired pneumonia Aortic valve vegetations Infective endocarditis involving the aortic valve- culture negative. Thrombocytopenia Hepatic transaminitis NSTEMI-likely type II 2/2 demand ischemia from hypoxia vs. true cardiac etiology-POA- negative for chest pain or ST/T wave abnormality. HEART score 6 points=12-16.6% risk for MACE Hyperlactatemia-POA Acute multifactorial delirium Acute on chronic renal failure Acute COPD exacerbation Emphysema secondary to tobacco use disorder : 50 Pack year HX Pulmonary edema Bilateral pleural effusions Prior CVA Hyperthyroid disorder/Graves disease with right thyroid nodule INTERVAL HISTORY: Patient seen and examined, all labs and imaging reviewed. Patient oriented to self and place. Platelet transfusion contraindicated at this time. Patients mental status significantly improved. Bili continues to climb at 10.1 Patient off pressors Patient continues edematous. Patient on supplemental O2, currently on high-flow Pending HIDA scan, VICK MRI reading pending . 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 MRCP completed yesterday. Patient started on Arixtra per Hematology recommendations. Continue Cefepime, Flagyl and Doxy per ID. Continue on supplemental O2, high-flow, BiPAP at night Avoid nephrotoxic medications Will continue to monitor renal function and follow nephrology recommendations. We will continue to follow Cardiology recommendation. Total critical care time spent 55 minutes, this excludes any procedures performed or any time spent in educational or teaching. REVIEW OF SYSTEMS: More awake today, able to answer questions and oriented to self and place. No other major complaints reported by the patient herself and most of the information is obtained from nursing staff and medical records at bedside. PHYSICAL EXAM: Jaundice GENERAL: oriented to self and place HEENT: EOMI, Sclera non icteric, dry mucosa NECK: Supple, no JVD, trachea midline LUNGS: Grossly clear, decreased air entry without wheezing HEART: Regular rate and rhythm. Normal S1 and S2, without murmurs, tachycardia ABD: Abdomen soft, nontender. Bowel sounds present EXT: No clubbing cyanosis or edema NEURO: Awake alert to self Vital Signs (last 8hr) Date Time Temp Pulse Resp B/P (MAP) Pulse Ox O2 Delivery O2 Flow Rate FiO2 06/20/25 09:19 97.7 06/20/25 09:00 96 15 138/54 97 Nasal Cannula 8.0 06/20/25 08:08 93 15 126/55 97 Nasal Cannula 8.0 06/20/25 08:00 95 N/C Oxymizer Hi LPM* 8 60 06/20/25 07:38 84 15 127/53 98 Nasal Cannula 8.0 06/20/25 06:52 71 18 06/20/25 06:51 18 N/Cannula Oximizer Hi LPM 8.0 06/20/25 06:00 77 18 114/35 (61) 95 06/20/25 05:00 79 18 115/36 (62) 95 06/20/25 04:00 95 Bi-PAP+ 30 60 06/20/25 04:00 97.9 06/20/25 04:00 97.9 77 18 114/46 (68) 90 06/20/25 03:45 70 18 97 06/20/25 03:40 69 21 40 06/20/25 03:38 70 18 87/48 (61) 97 06/20/25 03:30 72 18 95 06/20/25 03:21 73 18 107/46 (66) 97 LABS: Hematology Labs: Test 06/20/25 06:35 06/19/25 04:14 Range/Units White Blood Count 19.0 H 4.8-10.8 K/uL Red Blood Count 3.41 L 4.00-5.50 MIL/uL Hemoglobin 8.2 L 12.0-16.0 g/dL Hematocrit 24.5 L 36-48 % Mean Corpuscular Volume 71.8 L 79-99 fL Mean Corpuscular Hemoglobin 24.0 L 27.0-33.0 pg Mean Corpuscular Hemoglobin Concent 33.5 32.0-36.0 g/dL Red Cell Distribution Width 20.3 H 11.0-15.5 % Platelet Count 22 #L 130-400 K/uL Mean Platelet Volume 7.5-10.5 fL Immature Granulocyte % (Auto) 1.1 H 0-1 % Neutrophils (%) (Auto) 95.4 H 40.0-77.0 % Lymphocytes (%) (Auto) 2.2 L 21.0-51.0 % Monocytes (%) (Auto) 1.2 L 3.0-13.0 % Eosinophils (%) (Auto) 0.0 0.0-8.0 % Basophils (%) (Auto) 0.1 0.0-5.0 % Neutrophils # (Auto) 18.1 H 1.8-7.7 K/uL Lymphocytes # (Auto) 0.4 L 1.0-4.8 K/uL Monocytes # (Auto) 0.2 0.1-1.0 K/uL Eosinophils # (Auto) 0.00 0.00-0.70 K/uL Basophils # (Auto) 0.01 0.00-0.20 K/uL Absolute Immature Granulocyte (auto 0.21 0-1 K/uL Nucleated Red Blood Cells 0.0 0.0-0.19 % Segmented Neutrophils % 98 H 40-70 % Lymphocytes % (Manual) 1 L 22-44 % Monocytes % (Manual) 1 L 2-9 % Differential Comment MANUAL DIFFERENTIAL White Cell Morphology Comment Platelet Morphology Comment See comments Red Blood Cell Morphology See comments Chemistry Labs: Test 06/20/25 11:03 06/20/25 06:35 06/20/25 05:00 06/19/25 10:14 Range/Units Whole Blood Glucose 213 H 70-110 MG/DL Sodium Level 146 H 136-145 mmol/L Potassium Level 3.6 3.5-5.1 mmol/L Chloride Level 108 101-111 mmol/L Carbon Dioxide Level 25 21-32 mmol/L Blood Urea Nitrogen 97 *H 7-18 mg/dL Creatinine 1.9 H 0.5-1.0 mg/dL Glomerular Filtration Rate Calc 28 >90 mL/min Random Glucose 234 H 70-105 mg/dL Total Calcium 7.5 L 8.5-10.1 mg/dL Phosphorus Level 4.6 2.5-4.9 mg/dL Magnesium Level 2.10 1.80-2.40 mg/dL Total Bilirubin 10.5 H 0.2-1.0 mg/dL Direct Bilirubin 8.1 *H 0.0-0.3 mg/dL Gamma Glutamyl Transpeptidase 167 H 5-85 U/L Aspartate Amino Transf (AST/SGOT) 46 H 10-37 U/L Alanine Aminotransferase (ALT/SGPT) 116 H 12-78 U/L Alkaline Phosphatase 111 50-136 U/L Lactate Dehydrogenase 420 H 81-234 U/L C-Reactive Protein, Quantitative 9.00 H 0.5-3.0 mg/L B-Type Natriuretic Peptide 1280 H 0-100 pg/mL Total Protein 4.3 L 6.0-8.3 g/dL Albumin 1.8 L 3.5-5.0 g/dL Lactic Acid Level 5.2 H 0.8-2.5 mmol/L Procalcitonin 0.29 0.05-0.5 ng/mL Ammonia < 10 L 11-32 umol/L Coagulation Labs: Test 06/20/25 05:00 Range/Units Prothrombin Time 16.7 H 9.6-11.6 SEC Prothromb Time International Ratio 1.66 H 0.85-1.15 Fibrinogen 132 L 180-350 mg/dL DIAGNOSTICS / RADIOLOGY RESULTS: [ ] PLAN NEURO: Minimize central acting medications as possible. Fall Precautions. Well lighted room through the day and minimize interruptions through the night to prevent acute delirium. PULMONARY: Supplemental 02 as needed Titrate Fio2 to keep Spo2 > or = 90% DuoNebs and CPT as needed IS hourly while awake for pulmonary hygiene Out of bed to chair as tolerated VAP Bundle Vent/BIPAP Settings: [ ] Driving pressure: [ ] P Plat: [ ] Static C: [ ] Static R: [ ] P/F Ratio: [ ] CARDIOVASCULAR: Follow hemodynamics. Titrate vasopressor to keep MAP >65 or systolic blood pressure >95mmHg DRIPS: [Precedex] LINES: [ ] GI & NUTRITION: Continue nutritional support Aspirations precautions Prokinetic agents and laxatives as needed KIDNEYS & ELECTROLYTES: Strict monitoring of intake and output Daily weights Avoid nephrotoxic agents Monitor electrolytes and replace as needed Goal urine output of 30mL/hr or 0.5mL/kg/hr Urine output: [ ] Fluid Balance: [ ] ENDOCRINE: Maintain blood glucose between 100-180 at all times. Insulin sliding scale for blood glucose management INFECTIOUS DISEASE: Trend temperature. Dubois-culture if febrile. Micro: [ ] Antibiotics: [Vancomycin and Cefepime ] HEMATOLOGY & COAGULATION: Monitor H&H. Keep Hgb > 7 Transfuse 1 unit of PRBC for Hgb < 7 Transfuse 1 pack of platelets of platelets < 20, 000 Watch for any signs and symptoms of bleeding SKIN: Pressure ulcer prevention per facility protocol Rehab: PT/OT Prophylaxis: GI: [Pepcid ] DVT: [Heparin] Code Status: Full Resuscitation Disposition: [ICU] SHMUEL DOLL AGACN Jun 20, 2025 11:26
--- NOTE | 2025-06-20 11:52 | PN ---
[facility] PROGRESS NOTE Date of Service: Jun 20, 2025 Time of Service: 11:52 SUBJECTIVE: HISTORY OF PRESENT ILLNESS: This is a 69-year-old female past medical history of emphysema peripheral neuropathy, atrial fibrillation and hyperthyroidism who was brought by EMS to the ED for complaints of shortness of breaths,dry cough and generalized body weakness which started for the past 3 weeks and getting worse this past few days.Patient reports she lives alone and a current heavy cigarette smoker 1 pack/day.As per patient she has been going to her PCP every week x 3 weeks and was started on steroids prednisone and inhaler and patient also reports was admitted for having atrial fibrillation last 05/09/25 and was seen by at [facility] [place]. 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 Seen and examined patient in the ER awake,alert and appears very short of breath,she has a friend at bedside and helping her from time to time with medical history as patient appears anxious as well.Patient denies chest pain,palpitation,nausea,vomiting and fever. Latest vital signs temperature 98.1, heart rate 110, respiration 35, blood pressure 140/56 saturation 96 on B iPAP 40% FiO2. Labs: WBC 19 with negative left shift of neutrophils 84, hemoglobin 9, hematocrit 30, platelet count 386. Sodium 122, chloride 93, CO2 18, BUN 23, glucose 140, lactic acid 3.1 troponin 112 BNP 3370. D-dimer 3746, PT 15, INR 1.4 PTT 28. Influenza type a and B negative SARS COVID negative. Chest x-ray result revealed bilateral perihilar and bibasilar airspace disease possibly representing pulmonary edema with small bilateral pleural effusion. [id number] cardiomegaly and pulmonary vascular congestion. While in the ER patient received Solu-Medrol 125 mg IV, albuterol two unit dose via inhalation, levofloxacin 750 mg IV, Protonix 40 mg, NS 500 mL bolus, Lasix 80 mg IV and morphine 2 mg IV. Patient was started on Precedex per ICU radha mmendation. Admit patient for further medical management. 06/09/2025: The patient was seen and evaluated bedside in ICU, no family at bedside. Patient is agitated, anxious on max doses of Precedex, saturating 100% with FiO2 60 on BiPAP. Patient is currently on norepinephrine drip 0.05 mcg/mL/kg and heparin drip q.[address] chest showed no pulmonary thromboembolism, small to medium pericardial effusion, cardiomegaly, pulmonary vascular congestion, pulmonary edema and multifocal pneumonia in bilateral lung alejandro. Continue Zosyn, doxycycline, IV Lasix, Solu-Medrol IV. Morning lab showed white count 17.4, sodium 124, bicarb 14, lactic acid 3.7, troponin 178, BNP 3060, AST 1479, ALT 561. Patient has bicarb deficit of 336, we ordered sodium bicarbonate 100 mEq single dose and we will repeat bicarb this evening. Nephrology, Cardiology, critical Care on board we will continue to follow the recommendations. 06/10/2025: The patient was seen and evaluated bedside in ICU, no family at bedside. Patient is currently on Precedex, norepinephrine drip. Abdominal ultrasound showed focal edematous wall thickening of gallbladder with minimal pericholecystic fluid, recommended HIDA scan if there is persistent clinical concern for cholecystitis. Lab showed white count trending down to 17.1, lactic acid trending down to 3, AST 3143, ALT 1515. Zosyn has been discontinued by Infectious Disease, patient was started on cefepime and vancomycin. Cardiology recommended transesophageal echocardiography once the patient become more stable. 06/11/2025: The patient was seen and evaluated bedside in ICU, no family at bedside. Patient is currently on one-to-one sitter. Patient continues to be on Precedex, norepinephrine, heparin drip. Morning lab shows white count 22.3, sodium 135, potassium 3.1, BUN 52, creatinine 1.5, fibrinogen 265, lactic acid trended down to 2, AST trended down to 946, ALT trended down to 1026. Blood culture shows no growth so far. Continue IV antibiotics as recommended by Infectious Disease. 06/12/2025: Patient was evaluated bedside in room 215 and several family members were present at the bedside. Patient also has 2 on 1 sitter. Patient was awake and alert but is mildly confused. Patient is still recovering from sepsis from community-acquired pneumonia and her white count remained stable at 22.4k. Patient oxygenating well via high-flow nasal cannula Oxymizer with flow rate of 5 L. Still continues on amiodarone drip due to AFib with telemetry consistent with Afib. Patient is still pending a HIDA scan and VICK due to her respiratory status. We will continue linezolid, cefepime and doxycycline and start to taper methylprednisolone as per critical Care recommendations. 06/13/2025: Patient was seen and evaluated in room 215, no family at bedside. Patient is awake, alert, oriented x3, saturating 96 % with Oxymizer. Patient says that she is feeling better, denies any new or worsening symptoms. Cardiology recommended discontinuing amiodarone drip, started patient on amiodarone 200 mg twice daily. Labs show white count trending down to 19.2, BNP trending down to 3180, AST trending down to 193, ALT trending down to 608. We w ill continue linezolid, cefepime, metronidazole and doxycycline. 06/14/2025: Patient was seen and evaluated in room 215, no family at bedside. Patient is awake, alert, saturating 90% with 10L nasal cannula. Morning labs show white count trending down to 15.1, BUN 55, creatinine 1.7, BNP 4680, lactic acid 4.6, AST trending down to 105, ALT trending down to 468. We will order li mited echocardiogram to check for aortic valve vegetations and ejection fraction. Continue oral amiodarone, Lasix, Solu-Medrol, linezolid, cefepime, metronidazole, doxycycline. Plan for VICK as per cardiology. Cardiology, Infectious Disease on board we will continue to follow their recommendations. 06/15/2025: Patient was seen and evaluated in room 215, no family at bedside. Patient is awake, alert, saturating 96% with high-flow nasal cannula. Morning labs show BNP 4530, BUN 77, creatinine 1.9, white count 15.8. Limited echocardiogram was done which shows LVEF 55-60%, multiple vegetations on aortic valve leaflets. IV Lasix has been increased to 40 mg Q 8 by critical care team. Cardiology recommended discontinuing midodrine, heparin drip and patient was started on Lovenox. Continue oral amiodarone, Lasix, Solu-Medrol, linezolid, cefepime, metronidazole, doxycycline. Plan for VICK as per cardiology. Cardiology, Infectious Disease on board we will continue to follow their recommendations. 06/16/2025: Patient was seen and evaluated in room 215, no family at bedside. Patient is awake, alert, confused saturating 94% with high-flow nasal cannula. Morning labs show BNP trending down to 3070, lactic acid trending down to 3.7, potassium 2.9, BUN 80, creatinine 2.3. Negative Fluid balance today 600. We will replace potassium, continue oral amiodarone, IV Lasix, Solu-Medrol, l inezolid, cefepime, metronidazole, doxycycline. We will request case management for evaluation as patient will need long-term antibiotics for 4-6 weeks, critical care at discharge. Cardiology, Infectious Disease on board we will continue to follow their recommendations. 06/17/2025: Patient was seen and evaluated in room 215, no family at bedside. Patient is currently sedated, and unable to communicate, saturating 97% with BiPAP with a FiO2 of 60%. Patient was started on norepinephrine drip yesterday as her systolic blood pressure in the 80s. Today the plan is to wean off Precedex and norepinephrine drip. Morning labs show BNP trending down to 2170, lactic acid trending down to 3.1, BUN 82, creatinine 2.5, platelets trending down to 93. We ordered renal ultrasound, urine electrolytes, urine creatinine to further evaluate renal function. continue oral amiodarone, metoprolol, IV Lasix, Solu-Medrol, linezolid, cefepime, metronidazole, doxycycline. Cardiology, Infectious Disease on board we will continue to follow their recommendations. 06/18/2025: Patient was seen and evaluated in room 215, no family at bedside. Patient is awake, alert, 99% with high-flow nasal cannula. Patient continues on norepinephrine drip at 5.5 mL/hour. Morning lab show BNP trending down to 826, lactic acid trending up to 5.9, platelets trending down to 62, PT 17.8, INR 1.78, APTT 41.9, fibrinogen 89. We will give cryoprecipitate today. Head CT shows no hemorrhage, chronic encephalomalacia in the right occipitotemporal daisy on with associated ex vacuo dilation of occipital horn of the right lateral ventricle, most compatible with sequela of prior infarct or insult. Linezolid, IV Lasix has been stopped, continue oral amiodarone, metoprolol, Solu-Medrol, cefepime, metronidazole, doxycycline. Cardiology, Infectious Disease on board we will continue to follow their recommendations. 06.19.2025: Patient is seen and evaluated in room 215. Her mental status has improved significantly; although she remains intermittently confused, more awake, able to answer questions, and oriented to self and place. She is currently off Levophed and Precedex and is tolerating this well. A brain MRI was performed today and the report is pending. An MRCP completed today showed cardiomegaly with bilateral pleural effusions, cardiogenic pulmonary edema, diffuse anasarca, fatty liver, and a moderately distended gallbladder with markedly diffuse wall thickening and sludge, findings most consistent with systemic venous congestion and congestive hepatobiliary changes. Zyvox has been discontinued due to thrombocytopenia, and the patient continues on cefepime, F lagyl, and doxycycline per Infectious Disease. Hematology notes that she previously received heparin and Lovenox, raising concern for possible HIT versus drug-induced thrombocytopenia. She also received FFP, and although her fibrinogen had been very low, it is now 161. Hematology advised against further platelet transfusions and sent HIT antibodies; and Arixtra 2.5 mg dose as recom mended by Hematology was initiated today. Her labs today show WBC 25.8, hemoglobin 9.2, platelets 48, BNP 1790, CRP 9.3 trending down, lactic acid 4.7, ammonia <10, potassium 3.1 to be replaced per protocol, BUN 90, creatinine 2.1, and total bilirubin 9.7. 06/20/2025: Patient was seen and evaluated in room 215, no family at bedside. She is awake, alert, oriented to self and place, remains intermittently confused and saturating 95% with FiO2 60 on Oxymizer. Morning labs showed white count trending down to 19, platelets trending down to 22, BNP trended down to 1280, BUN 97, creatinine 1.9, total bilirubin 10.5, direct bilirubin 8.1, GGT 167, LDH 420. CT chest showed extensive bilateral pulmonary parenchymal infiltrates, bilateral pleural effusions and mediastinal adenopathy suggesting of infectious pneumonitis. Continue doxycycline, cefepime, Flagyl, Solu-Medrol, amiodarone, fondaparinux. Hematology, Neurology, GI, ID, Nephro, Cardiology on board. REVIEW OF SYSTEMS CONSTITUTIONAL: Denies fevers, chills, or night sweats. No unintentional weight loss reported. NEUROLOGICAL: Denies headache, amaurosis fugax, motor weakness, sensory deficit, vertigo/spinning sensation, gait abnormalities, or tremors. ENT: No hearing loss, otalgia, otorrhea, rhinitis, rhinorrhea, hoarseness, or sore throat. CARDIOVASCULAR: Denies any exertional angina, dyspnea on exertion, orthopnea, paroxysmal nocturnal dyspnea, palpitations, life-threatening arrhythmias, claudication. PULMONARY: Complaints of shortness of breaths, dry cough and chest tightness x3 weeks Denies phlegm/sputum, hemoptysis, pleuritic chest pain. SLEEP: Denies morning headaches, daytime somnolence or napping. Denies difficulty falling asleep, staying asleep, waking from sleep. Denies knowledge of snoring. GASTROINTESTINAL: Denies any type of dysphagia to either liquids or solids. Denies nausea, vomiting, pyrosis, early satiety, abdominal pain, diarrhea, constipation, or changes in stool consistency or caliber. Denies coffee-ground emesis, hematemesis, hematochezia, or melanotic stools. GENITOURINARY: Denies frequency, urgency, nocturia, hematuria or incontinence (Storage/Irritative symptoms.) Low urinary stream, straining to void, urinary intermittency or hesitancy, splitting of the voiding stream, terminal dribbling. ENDOCRINOLOGIC: Denies polyuria, polydipsia, polyphagia or heat/cold intolerances. HEMATOLOGIC: Denies thrombophilia/previous clots, or coagulopathy/bleeding disorders. ONCOLOGIC: Denies personal history of malignancy. DERMATOLOGIC: Denies rashes or pruritus. PSYCHIATRIC: Denies any suicidal or homicidal ideation. Denies hallucinations. PHYSICAL EXAM GENERAL APPEARANCE: The patient is awake, alert, and oriented to self but not to place and time ,moderate respiratory distress NEUROLOGICAL: Cranial nerves II-XII grossly intact. Motor is 5/5 in bilateral upper and lower extremities proximal to distal. No sensory deficits. HEENT: Face is symmetric. Pupils are equal and reactive. Extraocular movements are intact. NECK: Supple. No JVD. No thyromegaly. No submental, submandibular, pre- /postauricular, occipital or supraclavicular lymphadenopathy. CHEST: Normal chest expansion. No Telemetry. LUNGS: tachypneic, with NC via Oxymizer CARDIOVASCULAR: Tachycardic Regular. S1 and S2 normal. No appreciable rubs, murmurs or gallops. ABDOMEN: Soft, nontender, and nondistended. There is no rebound, voluntary guarding, or rigidity. : Deferred. Gonzalez. EXTREMITIES: Non-edematous and not cyanotic. No clubbing. Good capillary refill. SKIN: No skin breakdown. Vital Signs (last 8hr) Date Time Temp Pulse Resp B/P (MAP) Pulse Ox O2 Delivery O2 Flow Rate FiO2 06/20/25 09:19 97.7 06/20/25 09:00 96 15 138/54 97 Nasal Cannula 8.0 06/20/25 08:08 93 15 126/55 97 Nasal Cannula 8.0 06/20/25 08:00 95 N/C Oxymizer Hi LPM* 8 60 06/20/25 07:38 84 15 127/53 98 Nasal Cannula 8.0 06/20/25 06:52 71 18 06/20/25 06:51 18 N/Cannula Oximizer Hi LPM 8.0 06/20/25 06:00 77 18 114/35 (61) 95 06/20/25 05:00 79 18 115/36 (62) 95 06/20/25 04:00 95 Bi-PAP+ 30 60 06/20/25 04:00 97.9 06/20/25 04:00 97.9 77 18 114/46 (68) 90 LABS: Laboratory: Test 06/20/25 11:03 06/20/25 06:35 06/20/25 05:00 06/19/25 19:15 Range/Units Whole Blood Glucose 213 H 70-110 MG/DL White Blood Count 19.0 H 4.8-10.8 K/uL Red Blood Count 3.41 L 4.00-5.50 MIL/uL Hemoglobin 8.2 L 12.0-16.0 g/dL Hematocrit 24.5 L 36-48 % Mean Corpuscular Volume 71.8 L 79-99 fL Mean Corpuscular Hemoglobin 24.0 L 27.0-33.0 pg Mean Corpuscular Hemoglobin Concent 33.5 32.0-36.0 g/dL Red Cell Distribution Width 20.3 H 11.0-15.5 % Platelet Count 22 #L 130-400 K/uL Mean Platelet Volume 7.5-10.5 fL Immature Granulocyte % (Auto) 1.1 H 0-1 % Neutrophils (%) (Auto) 95.4 H 40.0-77.0 % Lymphocytes (%) (Auto) 2.2 L 21.0-51.0 % Monocytes (%) (Auto) 1.2 L 3.0-13.0 % Eosinophils (%) (Auto) 0.0 0.0-8.0 % Basophils (%) (Auto) 0.1 0.0-5.0 % Neutrophils # (Auto) 18.1 H 1.8-7.7 K/uL Lymphocytes # (Auto) 0.4 L 1.0-4.8 K/uL Monocytes # (Auto) 0.2 0.1-1.0 K/uL Eosinophils # (Auto) 0.00 0.00-0.70 K/uL Basophils # (Auto) 0.01 0.00-0.20 K/uL Absolute Immature Granulocyte (auto 0.21 0-1 K/uL Nucleated Red Blood Cells 0.0 0.0-0.19 % Sodium Level 146 H 136-145 mmol/L Potassium Level 3.6 3.5-5.1 mmol/L Chloride Level 108 101-111 mmol/L Carbon Dioxide Level 25 21-32 mmol/L Blood Urea Nitrogen 97 *H 7-18 mg/dL Creatinine 1.9 H 0.5-1.0 mg/dL Glomerular Filtration Rate Calc 28 >90 mL/min Random Glucose 234 H 70-105 mg/dL Total Calcium 7.5 L 8.5-10.1 mg/dL Phosphorus Level 4.6 2.5-4.9 mg/dL Magnesium Level 2.10 1.80-2.40 mg/dL Total Bilirubin 10.5 H 0.2-1.0 mg/dL Direct Bilirubin 8.1 *H 0.0-0.3 mg/dL Gamma Glutamyl Transpeptidase 167 H 5-85 U/L Aspartate Amino Transf (AST/SGOT) 46 H 10-37 U/L Alanine Aminotransferase (ALT/SGPT) 116 H 12-78 U/L Alkaline Phosphatase 111 50-136 U/L Lactate Dehydrogenase 420 H 81-234 U/L C-Reactive Protein, Quantitative 9.00 H 0.5-3.0 mg/L B-Type Natriuretic Peptide 1280 H 0-100 pg/mL Total Protein 4.3 L 6.0-8.3 g/dL Albumin 1.8 L 3.5-5.0 g/dL Prothrombin Time 16.7 H 9.6-11.6 SEC Prothromb Time International Ratio 1.66 H 0.85-1.15 Fibrinogen 132 L 180-350 mg/dL Lactic Acid Level 5.2 H 0.8-2.5 mmol/L Procalcitonin 0.29 0.05-0.5 ng/mL Blood Gas Specimen Type Arterial Arterial Blood pH 7.391 7.350-7.450 Arterial Blood Partial Pressure CO2 34 32-45 mmHg Arterial Blood Partial Pressure O2 65.8 L 83.0-108.0 mmHg Arterial Blood HCO3 20.3 L 21.0-28.0 mmol/L Arterial Blood Oxygen Saturation 91.8 L 94.0-98.0 % Arterial Blood Base Excess -4.0 L -2.0-3.0 mmol/L Hemoglobin (Blood Gas) 10.4 L 12.0-16.0 g/dL Sodium (Blood Gas) 139 136-145 MMOL/L Bedside Potassium (Blood Gas) 3.3 L 3.4-4.5 MMOL/L Bedside Chloride (Blood Gas) 106 98-107 MMOL/L Bedside Glucose (Blood Gas) 179 H 65-95 MG/DL Bedside Ionized Calcium (Blood Gas) 1.08 L 1.15-1.33 MMOL/L Bedside Lactic Acid (Blood Gas) 4.65 *H 0.36-0.75 MMOL/L Blood Gas Temperature 37.0 35.5-37.0 CELSIUS Blood Gas Flow-by 8.00 0.00-15.00 L/min Blood Gas Vent Mode OXY 8L ROOM AIR FiO2 80.0 % Blood Gas Specimen Comment RR RN Test 06/19/25 10:14 06/19/25 04:14 06/18/25 19:30 Range/Units Ammonia < 10 L 11-32 umol/L Segmented Neutrophils % 98 H 40-70 % Lymphocytes % (Manual) 1 L 22-44 % Monocytes % (Manual) 1 L 2-9 % Differential Comment MANUAL DIFFERENTIAL White Cell Morphology Comment Platelet Morphology Comment See comments Red Blood Cell Morphology See comments Urine Color YELLOW YELLOW Urine Appearance CLOUDY H CLEAR Urine pH 6.0 5.0-8.0 Urine Specific [place] 1.014 1.001-1.031 Urine Protein 20 H NEGATIVE mg/dL Urine Glucose (UA) NEGATIVE NEGATIVE mg/dL Urine Ketones NEGATIVE NEGATIVE mg/dL Urine Occult Blood SMALL H NEGATIVE Urine Nitrate NEGATIVE NEGATIVE Urine Bilirubin NEGATIVE NEGATIVE mg/dL Urine Urobilinogen 0.2 0.2-1.0 mg/dL Urine Leukocyte Esterase NEGATIVE NEGATIVE Parker/uL Urine RBC 6-10 H 0-1 /HPF Urine WBC 11-25 H 0-1 /HPF Urine Other Crystals (Auto) 7 None Seen /HPF Urine Bacteria None None Seen /HPF Urine Yeast MANY None Seen /HPF Urine Random Creatinine 31.44 30-135 mg/dL Urine Random Sodium 16 L 40-220 mmol/l Urine Random Potassium 33 25-125 mmol/L Urine Random Chloride 43 L 110-250 mmol/L Current Medications Medications (Trade) Dose Ordered Sig/Rossy Route PRN Reason Start Time Stop Time Status Last Admin Dose Admin Acetaminophen (TYLenol 325MG TAB) 650 mg Q4H PRN PO MILD PAIN (1-3) 06/08/25 20:30 07/08/25 20:29 06/12/25 10:16 650 MG Acetaminophen (TYLenol 325MG TAB) 650 mg Q6H PRN PO TEMPERATURE GREATER THAN 101.5 06/08/25 20:30 07/08/25 20:29 06/12/25 20:47 650 MG Albuterol (DUOneb) 1 udvial [id number] IH 06/08/25 22:00 07/08/25 21:59 06/20/25 06:50 1 UDVIAL Amiodarone HCl (pacERONE 200MG) 200 mg BID PO 06/13/25 21:00 07/13/25 20:59 06/20/25 08:32 200 MG Amiodarone HCl 540 mg/Dextrose 300 ml @ 16.667 mls/ hr PROTOCOL IV 06/12/25 10:00 06/13/25 03:59 DC 06/12/25 11:33 16.667 MLS/HR Amiodarone HCL/ Dextrose 100 ml @ 600 mls/hr PROTOCOL IV 06/12/25 05:00 06/12/25 06:53 DC 06/12/25 05:10 600 MLS/HR Amiodarone HCL/ Dextrose 100 ml @ 0 mls/hr PROTOCOL IV 06/12/25 07:00 06/12/25 07:01 DC Amiodarone HCL/ Dextrose 200 ml @ 33.333 mls/ hr PROTOCOL IV 06/12/25 05:00 06/12/25 06:53 DC 06/12/25 05:11 33.333 MLS/HR Budesonide (Pulmicort 0.5 Mg/2ml) 0.5 mg BIDRESP IH 06/09/25 18:00 07/09/25 17:59 06/20/25 06:50 0.5 MG Cefepime HCl (MAXipime 1 GM vial) 1 gm Q12H IVPB 06/10/25 14:00 06/10/25 14:35 DC 06/10/25 14:23 1 GM Cefepime HCl (MAXipime 1 GM vial) 1 gm Q12H9 IVPB 06/10/25 21:00 06/24/25 13:59 06/20/25 08:28 1 GM Cefepime HCl (MAXipime 1 GM vial) 1 gm Q8H IVPB 06/10/25 09:30 06/10/25 09:41 DC Dexmedetomidine/ Sodium Chloride (PRECEdex 200MCG/ 50ML-NS) 200 mcg PROTOCOL IV 06/16/25 11:30 07/16/25 11:29 06/20/25 02:54 200 MCG Dexmedetomidine/ Sodium Chloride (PRECEdex 400MCG/ 100ML-NS) 400 mcg PROTOCOL IV 06/08/25 20:00 06/11/25 17:00 DC 06/11/25 09:27 400 MCG Dextrose (D50w) 50 ml AD PRN IV HYPOGLYCEMIA PROTOCOL 06/17/25 14:30 07/17/25 14:29 Dorzolamide/ Timolol (Cosopt Eye Drops) 1 DROP BID OP 06/09/25 21:00 07/09/25 20:59 06/20/25 08:33 1 ML Doxycycline Hyclate 250 ml @ 125 mls/hr Q12H IV 06/08/25 23:00 06/18/25 22:59 DC 06/18/25 11:06 125 MLS/HR Doxycycline Hyclate 250 ml @ 125 mls/hr Q12H IV 06/19/25 13:00 06/29/25 12:59 06/20/25 00:14 125 MLS/HR Enoxaparin Sodium (Lovenox (Pharmacy To Dose)) 1 unit Q24H SQ 06/15/25 14:00 06/15/25 14:01 DC Enoxaparin Sodium (Lovenox 80mg) 70 mg Q24H SQ 06/15/25 14:30 06/17/25 12:11 DC 06/16/25 14:39 70 MG Famotidine (Pepcid 20mg Vial) 20 mg DAILY IV 06/09/25 09:00 06/09/25 13:09 DC 06/09/25 08:39 20 MG Fluticasone Propionate (FLOnase 50 mcg/ spray 16g bottle) 1 SPRAY DAILY EN 06/12/25 15:00 07/12/25 14:59 06/20/25 08:32 1 SPRAYS Fondaparinux (Arixtra) 2.5 mg DAILY SQ 06/19/25 09:30 07/19/25 09:29 06/20/25 08:29 2.5 MG Furosemide (LASix 20MG VIAL) 20 mg BID IVP 06/12/25 09:00 06/12/25 09:19 DC 06/12/25 08:57 20 MG Furosemide (LASix 40MG VIAL) 20 mg BID IVP 06/11/25 21:00 06/12/25 06:54 DC 06/11/25 21:26 20 MG Furosemide (LASix 40MG VIAL) 40 mg BID IVP 06/08/25 21:00 06/11/25 17:00 DC 06/11/25 09:32 40 MG Furosemide (LASix 40MG VIAL) 40 mg BID IVP 06/12/25 21:00 06/14/25 13:19 DC 06/14/25 08:24 40 MG Furosemide (LASix 40MG VIAL) 40 mg Q8H6 IVP 06/14/25 14:00 06/17/25 12:12 DC 06/17/25 05:22 40 MG Glucagon (Glucagon 1mg Kit) 1 mg AD PRN IM HYPOGLYCEMIA PROTOCOL 06/17/25 14:30 07/17/25 14:29 Heparin Sodium (Porcine) (HEParin 5,000 UNIT VIAL) *calculation based on ACTUAL B... AD PRN IV HEPARIN PROTOCOL 06/09/25 04:00 06/15/25 14:01 DC Heparin Sodium/ Dextrose 250 ml @ 0 mls/hr Q6H IV 06/09/25 04:00 06/15/25 13:58 DC 06/15/25 02:42 4.7 MLS/HR Home Med (Home Medication) (Methimazole 5MG TAB) - 0.5 TAB... DAILY PO 06/10/25 09:00 07/10/25 08:59 06/20/25 08:33 0.5 EACH Insulin Human Regular (humuLIN R 100 UNIT/ML 3ML) INSULIN SLIDING SCAL... ACHS SQ 06/17/25 16:30 06/18/25 10:03 DC 06/18/25 08:53 6 UNIT Insulin Human Regular (humuLIN R 100 UNIT/ML 3ML) INSULIN SLIDING SCAL... ACHS SQ 06/18/25 11:30 07/18/25 11:29 06/20/25 05:59 6 UNIT Lactulose (Constulose 20gm/ 30ml Udcup) 20 gm BID PRN PO CONSTIPATION 06/13/25 07:30 07/13/25 07:29 Latanoprost (Xalatan) 1 DROP HS OD 06/09/25 21:00 07/09/25 20:59 06/19/25 21:46 1 DROP Levofloxacin/ Dextrose 100 ml @ 100 mls/hr Q24H IV 06/09/25 20:00 06/08/25 22:40 DC Linezolid 300 ml @ 150 mls/hr Q12H IV 06/11/25 11:30 06/11/25 12:38 DC Linezolid 300 ml @ 150 mls/hr Q12H IV 06/11/25 14:30 06/18/25 12:55 DC 06/18/25 02:07 150 MLS/HR Magnesium Sulfate 50 ml @ 0 mls/hr PROTOCOL PRN IV MAGNESIUM PROTOCOL 06/09/25 17:00 07/09/25 16:59 06/12/25 03:21 25 MLS/HR Methylprednisolone Sodium Succinate (Solu-medROL 40MG) 40 mg Q12H9 IVP 06/12/25 21:00 07/09/25 13:29 06/20/25 08:29 40 MG Methylprednisolone Sodium Succinate (Solu-medROL 40MG) 40 mg Q8H IVP 06/09/25 13:30 06/12/25 14:11 DC 06/12/25 13:23 40 MG Metoprolol Tartrate (loprESSOR) 2.5 mg Q6H PRN IV heart rate greater than 110 06/12/25 03:30 07/12/25 03:29 06/19/25 14:15 2.5 MG Metoprolol Tartrate (loprESSOR) 25 mg BID PO 06/12/25 21:00 06/17/25 12:12 DC 06/16/25 21:24 25 MG Metoprolol Tartrate (loprESSOR) 25 mg BID PO 06/19/25 21:00 07/19/25 20:59 06/20/25 08:29 25 MG Metronidazole/ Sodium Chloride 100 ml @ 100 mls/hr Q8H6 IVPB 06/10/25 14:00 06/20/25 13:59 06/20/25 05:13 100 MLS/HR Midodrine (PROAMatine 5 MG TABLET) 5 mg TID PO 06/10/25 14:00 06/11/25 08:52 DC 06/10/25 20:08 5 MG Midodrine (PROAMatine 5 MG TABLET) 10 mg TID PO 06/11/25 09:00 06/15/25 13:58 DC 06/14/25 21:14 10 MG Nicotine (Nicoderm) 21 mg DAILY TD 06/08/25 23:00 07/08/25 22:59 06/20/25 08:29 21 MG Norepinephrine 250 ml @ 0 mls/hr PROTOCOL IV 06/09/25 01:00 07/09/25 00:59 06/17/25 05:41 27.7 MLS/HR Olanzapine (ZyPREXA 5 mg tab) 5 mg BID PO 06/10/25 21:00 06/17/25 12:13 DC 06/16/25 21:24 5 MG Ondansetron HCl (zoFRAN 4MG INJ) 4 mg Q6H PRN IV NAUSEA/VOMITING 06/08/25 20:30 07/08/25 20:29 Oseltamivir Phosphate (Tamiflu) 75 mg BID PO 06/09/25 21:00 06/10/25 09:08 DC 06/10/25 09:03 75 MG Pantoprazole Sodium (PROTonix 40MG INJ) 40 mg DAILY IVP 06/10/25 09:00 07/10/25 08:59 06/20/25 08:29 40 MG Pharmacy Profile Note (Pharmacy Communication) 1 each ONCE [facility] [place]/09/25 03:00 06/09/25 03:24 DC Pharmacy Profile Note (Pharmacy Communication) 1 each ONCE [facility] 06/11/25 11:30 06/11/25 11:19 DC Pharmacy Profile Note (Pharmacy Communication) 1 each ONCE [facility] [place]/16/25 11:00 06/16/25 11:08 DC Pharmacy Profile Note (Pharmacy Communication) 1 each ONCE [facility] [place] 06/16/25 17:00 06/16/25 17:10 DC Phytonadione (Vitamin K 10mg/ 1ml Adult Vial) 10 mg DAILY SQ 06/11/25 09:00 06/13/25 15:00 DC 06/13/25 09:24 10 MG Phytonadione (Vitamin K 10mg/ 1ml Adult Vial) 10 mg Q24H SQ 06/10/25 15:00 06/10/25 16:55 DC 06/10/25 15:11 10 MG Piperacillin Sod/ Tazobactam Sod (Zosyn 3.375gm+NS 50ml) 3.375 gm Q8H IV 06/08/25 23:00 06/10/25 09:08 DC 06/10/25 07:10 3.375 GM Potassium Chloride 100 ml @ 50 mls/hr AD PRN IV POTASSIUM PROTOCOL 06/09/25 17:00 06/11/25 06:10 DC 06/09/25 21:18 50 MLS/HR Potassium Chloride 100 ml @ 100 mls/hr AD PRN IV POTASSIUM PROTOCOL 06/09/25 17:00 07/09/25 16:59 06/18/25 16:46 100 MLS/HR Potassium Chloride 100 ml @ 100 mls/hr AD PRN IV POTASSIUM PROTOCOL 06/16/25 12:00 07/16/25 11:59 06/19/25 06:17 100 MLS/HR Potassium Chloride (K-Dur/Klor-Con 20meq) 20 meq AD PRN PO POTASSIUM PROTOCOL 06/09/25 17:00 07/09/25 16:59 Potassium Chloride (KCl 10% Elixir 20meq/15ml) 20 meq AD PRN PO POTASSIUM PROTOCOL 06/09/25 17:00 07/09/25 16:59 Sevelamer HCl (RENAgel 800 MG TAB) 400 mg TIDMEALS PO 06/17/25 12:00 06/17/25 15:36 DC Sodium Bicarbonate 150 meq/Sodium Chloride 1,150 ml @ 100 mls/hr [id number] IVP 06/09/25 12:00 06/09/25 12:29 DC Sodium Bicarbonate (Sodium Bicarbonate) 650 mg BID PO 06/13/25 11:30 06/13/25 11:58 DC Sodium Bicarbonate (Sodium Bicarbonate) 1,300 mg BID PO 06/13/25 21:00 07/13/25 20:59 06/20/25 08:29 1,300 MG Vancomycin HCl 250 ml @ 125 mls/hr Q24H IV 06/11/25 10:00 06/11/25 11:15 DC 06/11/25 09:31 125 MLS/HR Vancomycin HCl (Vancomycin Protocol) 1 each AD IV 06/10/25 09:30 06/11/25 11:15 DC Ziprasidone (Geodon) 10 mg Q6H PRN IM AGITATION/PSYCHOSIS 06/09/25 18:00 06/17/25 12:13 DC 06/11/25 17:28 10 MG DIAGNOSTICS / RADIOLOGY: [ ] [place] [address] [address] IMAGING REPORT Signed PATIENT: HUGO WYLIE MR#: [id number] : 1955 SEX: F AGE: 69 LOCATION: 2CH ORDER 1021 STATUS: ADM IN REPORT#: [id number] SERVICE REASON: Pleural effusion ORDERING PHYSICIAN: SHMUEL DOLL PROCEDURE: CHEST WO - CT CHEST W/O CONTRAST EXAM: CT Chest Without Intravenous Contrast. CLINICAL HISTORY: Pleural effusion. Post ACDF status in the cervical spine. TECHNIQUE: Axial computed tomography images of the chest without intravenous contrast. Dose reduction technique was used including one or more of the following: automated exposure control, adjustment of mA and kV according to patient size, and/or iterative reconstruction. Total exam DLP 397. Total CTDI volume 10.3. CONTRAST: Without. COMPARISON: Prior chest radiograph dated 06/18/2025. A prior CT chest dated June 08, 2025 is available for comparison. FINDINGS: LUNGS: Extensive areas of ground-glass attenuation infiltrates, mosaic attenuation are present in the bilateral lung parenchyma, significantly increased in severity since the prior chest radiograph dated 06/18/2025. Compressive atelectasis of the lung bases. No pulmonary mass. PLEURAL SPACES: Moderate sized bilateral pleural effusions. No pneumothorax. HEART AND MEDIASTINUM: The thyroid is enlarged and appears heterogeneous. There is a right sided PICC line with its tip terminating in the distal superior vena cava. There are atheromatous calcification of the thoracic aortic arch and the coronary arteries. The main pulmonary artery measures 4.5 cm, which may represent pulmonary artery hypertension. There are enlarged mediastinal lymph nodes, measuring up to 1.8 cm. There are coronary arterial calcifications. Minimal pericardial effusion is present. No cardiomegaly. LYMPH NODES: Enlarged mediastinal lymph nodes, measuring up to 1.8 cm. CHEST WALL AND UPPER ABDOMEN: Moderate ascites. Hyperdense contents are present in the gallbladder lumen, which may represent vicarious contrast excretion. The chest wall is unremarkable. BONES: Osteopenia. Chronic compression deformity of T12 vertebra with 80% vertebral height reduction. No acute osseous abnormality. IMPRESSION: 1. Extensive bilateral pulmonary parenchymal infiltrates, bilateral pleural effusions and mediastinal adenopathy, suggestive of infectious pneumonitis, significantly worsened since the prior chest radiograph dated 06/18/[address] chest pulmonary angiography dated June 08, 2025. 2. Main pulmonary artery measures 4.5 cm, suggestive of pulmonary artery hypertension, stable since the prior CT pulmonary angiography dated June 08, 2025. 3. Moderate ascites, new since the prior CT pulmonary angiography dated June 08, 2025. /[place] DICTATED BY: GIANLUCA ADAN MD DATE: 06/20/25 0442 ELECTRONICALLY SIGNED BY: GIANLUCA ADAN MD DATE: 06/20/25 0442 ASSESSMENT: Acute hypoxemic respiratory failure POA Sepsis secondary to community acquired pneumonia-POA Infective endocarditis involving the aortic valve- culture negative. Aortic insufficiency due to Multiple vegetations seen on the aortic valve leafelts. (2D echo 06/09/2025) Hepatic transaminitis Acute multifactorial delirium Acute CHF exacerbation with possible pulmonary edema POA Elevated troponin likely due to type 2 demand ischemia POA Acute kidney injury Acute COPD exacerbation POA Nicotine Dependence POA Acute anemia POA Acute leukocytosis POA Moderate Hyponatremia and hypochloremia POA Hyperglycemia POA Lactic acidosis POA Hyperthyroidism POA Peripheral neuropathy POA History of emphysema POA History of atrial fibrillation not on anticoagulation PLAN: Acute hypoxemic respiratory failure POA On Presentation patient's respiratory rate 30, heart rate 108, saturating 96% with2 L nasal cannula Chest x-ray showed bilateral perihilar and bibasilar airspace disease Patient on high-flow nasal cannula, continue DuoNeb q.4 Continue IV Solu-Medrol 40 mg q.12h IV Critical Care on board, we will follow the recommendations. Sepsis secondary to community acquired pneumonia-POA On presentation heart rate 108, respiratory rate 30, white count 19.7, lactic acid 3.1 Chest x-ray showed bilateral perihilar and bibasilar airspace disease CT chest showed multifocal pneumonia bilateral lungs, pulmonary vascular congestion, pulmonary edema Patient was started on norepinephrine drip on 06/16/2025 due to systolic blood pressure in 80s- weaned off today Continue on cefepime IV q.12h Continue doxycycline q.12h IV , metronidazole q.8 IV We will trend lactic acid Moderate Hyponatremia and hypochloremia POA On presentation sodium 122, chloride 93 Serum osmolality low at 274, urine osmolality normal, BNP 4530 Hyponatremia most likely due to fluid overload Discontinued IV Lasix 40 mg q8 Sodium today 143 Nephrology on board, we will follow the recommendations. Aortic insufficiency due to Multiple vegetations seen on the aortic valve leafelts. (2D echo 06/09/2025) 2D echocardiogram showed LVEF 50-55%, normal left ventricular diastolic functio n, normal right ventricular systolic function Multiple vegetations seen on aortic valve leaflets, difficulty to assess severity of aortic insufficiency, moderate mitral valve regurgitation BNP today 1280 continue cefepime Continue doxycycline q.12h IV, metronidazole q.8 IV Blood culture showed no growth so far We will Request consultation from Infectious Disease VICK could not be performed as patient could not tolerate Hepatic transaminitis An MRCP completed today showed cardiomegaly with bilateral pleural effusions, cardiogenic pulmonary edema, diffuse anasarca , fatty liver, and a moderately distended gallbladder with markedly diffuse wall thickening and sludge, findings most consistent with systemic venous congestion and congestive hepatobiliary changes in the setting of suspected heart failure GI on board for further evaluation. Acute multifactorial delirium Her mental status has improved significantly; although she remains intermittently confused A brain MRI was performed today and the report is pending. GI Prophylaxis with famotidine 20 mg IV daily [place] [facility] [place] ATTESTATION BY PHYSICIAN I have seen and examined the patient. I reviewed the documentation, medical decision making, and treatment plan as noted by the resident physician above. I agree with the findings and plan of care. MIKAYLA RAINES MD, ADIL SHAH QUADRI MD Jun 20, 2025 11:52
[2025-06-20] MEDS: LACTULOSE 20 GM/30 ML UDCUP PO PRN (16:32)
--- NOTE | 2025-06-20 20:03 | HMCIMG ---
EXAM: MR Brain Without IV Contrast CLINICAL HISTORY: AMS. TECHNIQUE: Multiplanar multi-sequence MRI of the brain. CONTRAST: No. COMPARISON: CT dated 06/19/25. FINDINGS: Large area of encephalomalacia with mild surrounding gliosis in the right occipitaltemporal region with associated ex vacuo dilatation of the occipital horn of the right lateral ventricle. Diffuse age-related cerebral atrophy is evident by dilated lateral ventricles, prominent cisterns, and sulcal spaces. No evidence of acute cortical infarction, hemorrhage, mass or mass effect. No abnormal extra-axial fluid collection is present. The marrow signal within the skull base and calvarium is intact. The paranasal sinuses and mastoid air cells are clear. Bilateral intraocular lens implants in situ. IMPRESSION: No acute intracranial abnormality or mass. Mild diffuse age-related cerebral atrophy. Large area of encephalomalacia with mild surrounding gliosis in the right occipitaltemporal region with associated ex vacuo dilatation of the occipital horn of the right lateral ventricle. No acute interval changes. /[place]
[2025-06-20] MEDS: CLINIMIX-E 5%AA /D15%W 2000ML 2,000 ML IV ONE (20:26)
--- NOTE | 2025-06-20 21:13 | PN ---
INFECTIOUS DISEASE PROGRESS NOTE Date of Service: Jun 20, 2025 SUBJECTIVE: This is a 69-year-old female patient who remains in the ICU. Patient is now on high-flow oxygen support. Answering simple questions. Patient's son and other family members visiting at bedside. Platelet liver remain low at 22, mica inspector has been consulted. We will continue on cefepime and doxycycline. PHYSICAL EXAM EYES: Pupils equal and reactive. Icteric. HENT: No oral thrush seen, moist Oral mucosa. NECK: Supple, no JVD or thyromegaly. LUNGS: Continuous BiPAP.. CARDIOVASCULAR: S1, S2 regular. No murmur heard. ABDOMEN: Soft, non tender, bowel sounds present. CENTRAL NERVOUS SYSTEM: SKIN: No rashes, no swelling. Jaundice. LYMPHATICS: No peripheral lymphadenopathy. MUSCULOSKELETAL: No joint swelling, erythema or tenderness. EXTREMITIES: No cyanosis or clubbing. BACK: No deformity, no pressure ulcer. GENITOURINARY: No dysuria or hematuria. Gonzalez catheter. Vital Sign (Last 12 Hours) 06/20/25 06/20/25 06/20/25 06/20/25 09:19 10:08 11:00 12:00 Temp 97.7 Pulse 77 73 Resp 18 18 B/P (MAP) 137/55 132/44 Pulse Ox 98 98 95 O2 Delivery Nasal Cannula Nasal Cannula N/C Oxymizer Hi LPM* O2 Flow Rate 8.0 8.0 8 FiO2 60 06/20/25 06/20/25 06/20/25 06/20/25 12:00 13:00 14:00 14:41 Temp 97.0 Pulse 75 83 88 Resp 18 17 20 18 B/P (MAP) 130/40 143/46 151/54 Pulse Ox 97 96 96 O2 Delivery Nasal Cannula Nasal Cannula Nasal Cannula N/Cannula Oximizer Hi LPM O2 Flow Rate 8.0 8.0 8.0 8.0 06/20/25 06/20/25 06/20/25 06/20/25 14:42 15:00 16:00 16:00 Temp 97.0 Pulse 71 95 92 Resp 18 20 20 B/P (MAP) 141/62 143/41 Pulse Ox 96 92 95 O2 Delivery Nasal Cannula Nasal Cannula N/C Oxymizer Hi LPM* O2 Flow Rate 8.0 8.0 8 FiO2 60 12/7/06/20/25 06/20/25 06/20/25 17:00 17:08 17:43 18:00 Pulse 89 96 102 Resp 15 18 18 18 B/P (MAP) 130/66 133/67 Pulse Ox 100 96 O2 Delivery Nasal Cannula N/Cannula Oximizer Hi LPM Nasal Cannula O2 Flow Rate 8.0 8.0 8.0 06/20/25 18:45 Resp 18 O2 Delivery N/Cannula Oximizer Hi LPM O2 Flow Rate 8.0 Intake & Output (last 24hrs) 06/19/25 06/19/25 06/20/25 15:00 23:00 07:00 Intake Total 561.0 ml 526.2 ml 582.9 ml Output Total 560 ml 475 ml 465 ml Balance 1.0 ml 51.2 ml 117.9 ml LABS: Laboratory: Test 06/20/25 19:41 06/20/25 06:35 06/20/25 05:00 06/19/25 19:15 Range/Units Whole Blood Glucose 176 H 70-110 MG/DL White Blood Count 19.0 H 4.8-10.8 K/uL Red Blood Count 3.41 L 4.00-5.50 MIL/uL Hemoglobin 8.2 L 12.0-16.0 g/dL Hematocrit 24.5 L 36-48 % Mean Corpuscular Volume 71.8 L 79-99 fL Mean Corpuscular Hemoglobin 24.0 L 27.0-33.0 pg Mean Corpuscular Hemoglobin Concent 33.5 32.0-36.0 g/dL Red Cell Distribution Width 20.3 H 11.0-15.5 % Platelet Count 22 #L 130-400 K/uL Mean Platelet Volume 7.5-10.5 fL Immature Granulocyte % (Auto) 1.1 H 0-1 % Neutrophils (%) (Auto) 95.4 H 40.0-77.0 % Lymphocytes (%) (Auto) 2.2 L 21.0-51.0 % Monocytes (%) (Auto) 1.2 L 3.0-13.0 % Eosinophils (%) (Auto) 0.0 0.0-8.0 % Basophils (%) (Auto) 0.1 0.0-5.0 % Neutrophils # (Auto) 18.1 H 1.8-7.7 K/uL Lymphocytes # (Auto) 0.4 L 1.0-4.8 K/uL Monocytes # (Auto) 0.2 0.1-1.0 K/uL Eosinophils # (Auto) 0.00 0.00-0.70 K/uL Basophils # (Auto) 0.01 0.00-0.20 K/uL Absolute Immature Granulocyte (auto 0.21 0-1 K/uL Nucleated Red Blood Cells 0.0 0.0-0.19 % Sodium Level 146 H 136-145 mmol/L Potassium Level 3.6 3.5-5.1 mmol/L Chloride Level 108 101-111 mmol/L Carbon Dioxide Level 25 21-32 mmol/L Blood Urea Nitrogen 97 *H 7-18 mg/dL Creatinine 1.9 H 0.5-1.0 mg/dL Glomerular Filtration Rate Calc 28 >90 mL/min Random Glucose 234 H 70-105 mg/dL Total Calcium 7.5 L 8.5-10.1 mg/dL Phosphorus Level 4.6 2.5-4.9 mg/dL Magnesium Level 2.10 1.80-2.40 mg/dL Total Bilirubin 10.5 H 0.2-1.0 mg/dL Direct Bilirubin 8.1 *H 0.0-0.3 mg/dL Gamma Glutamyl Transpeptidase 167 H 5-85 U/L Aspartate Amino Transf (AST/SGOT) 46 H 10-37 U/L Alanine Aminotransferase (ALT/SGPT) 116 H 12-78 U/L Alkaline Phosphatase 111 50-136 U/L Lactate Dehydrogenase 420 H 81-234 U/L C-Reactive Protein, Quantitative 9.00 H 0.5-3.0 mg/L B-Type Natriuretic Peptide 1280 H 0-100 pg/mL Total Protein 4.3 L 6.0-8.3 g/dL Albumin 1.8 L 3.5-5.0 g/dL Prothrombin Time 16.7 H 9.6-11.6 SEC Prothromb Time International Ratio 1.66 H 0.85-1.15 Fibrinogen 132 L 180-350 mg/dL Lactic Acid Level 5.2 H 0.8-2.5 mmol/L Procalcitonin 0.29 0.05-0.5 ng/mL Blood Gas Specimen Type Arterial Arterial Blood pH 7.391 7.350-7.450 Arterial Blood Partial Pressure CO2 34 32-45 mmHg Arterial Blood Partial Pressure O2 65.8 L 83.0-108.0 mmHg Arterial Blood HCO3 20.3 L 21.0-28.0 mmol/L Arterial Blood Oxygen Saturation 91.8 L 94.0-98.0 % Arterial Blood Base Excess -4.0 L -2.0-3.0 mmol/L Hemoglobin (Blood Gas) 10.4 L 12.0-16.0 g/dL Sodium (Blood Gas) 139 136-145 MMOL/L Bedside Potassium (Blood Gas) 3.3 L 3.4-4.5 MMOL/L Bedside Chloride (Blood Gas) 106 98-107 MMOL/L Bedside Glucose (Blood Gas) 179 H 65-95 MG/DL Bedside Ionized Calcium (Blood Gas) 1.08 L 1.15-1.33 MMOL/L Bedside Lactic Acid (Blood Gas) 4.65 *H 0.36-0.75 MMOL/L Blood Gas Temperature 37.0 35.5-37.0 CELSIUS Blood Gas Flow-by 8.00 0.00-15.00 L/min Blood Gas Vent Mode OXY 8L ROOM AIR FiO2 80.0 % Blood Gas Specimen Comment RR RN Test 06/19/25 10:14 06/19/25 04:14 Range/Units Ammonia < 10 L 11-32 umol/L Segmented Neutrophils % 98 H 40-70 % Lymphocytes % (Manual) 1 L 22-44 % Monocytes % (Manual) 1 L 2-9 % Differential Comment MANUAL DIFFERENTIAL White Cell Morphology Comment Platelet Morphology Comment See comments Red Blood Cell Morphology See comments ASSESSMENT: Hypoxic respiratory failure, requiring oxygen support. Multifocal pneumonia. Aortic valve Endocarditis. Sepsis. Gemella Morbillorum bacteremia. Leukocytosis. Acute renal failure. Multifactorial encephalopathy. Chronic obstructive pulmonary disease exacerbation. Chronic tobacco use. Atrial fibrillation. Thrombocytopenia. Elevated liver enzymes, improving. Generalized jaundice. PLAN: Continue cefepime. Continue doxycycline. Continue GI prophylaxis. Continue bronchodilators. Continue oxygen support Monitor renal function. Currently on Clinimix. This case was reviewed and discussed with my supervising physician Dr. Liang and the above assessment and plan was formulated and agreed upon. ATTESTATION BY PHYSICIAN I have seen and examined the patient. I reviewed the documentation, medical decision making, and treatment plan as noted by the mid-level provider above. I agree with the findings and plan of care. RIKY LIANG MD, MIRTA L FNP Jun 20, 2025 21:13
--- NOTE | 2025-06-20 23:55 | HMCIMG ---
EXAM: CR Chest, 1 View. CLINICAL HISTORY: RESP FAILURE COMPARISON: CR: CHEST 1VW 06/18/2025 FINDINGS: Right upper extrimity PICC line is seen with tip at the cavoatrial junction. Unchanged. LUNGS: Interval progression of the bilateral pulmonary congestion and interstitial thickening. Unchanged bilateral basal hazy opacification. Still seen right basilar infiltrates. PLEURAL SPACES: No pneumothorax. Newly seen questionable mild left pleural effusion. Still seen unchanged questionable right pleural effusion vs pleural thickening. MEDIASTINUM: Stable cardiomegaly. BONES: No aggressive appearing osseous lesion seen. Cervical fixation is still seen. IMPRESSION: 1. Interval progression of the bilateral pulmonary congestion and interstitial thickening. 2. Right basilar infiltrates consistent with pneumonia vs congestive changes. Unchanged since the previous study. 2. Left basal hazy opacification. Unchanged since the previous study. 3. Newly seen questionable mild left pleural effusion. Still seen unchanged questionable right pleural effusion vs pleural thickening. 4. Stable cardiomegaly. /[place]
[2025-06-21] VITALS (48 sets, daily range): BP systolic 77–147; BP diastolic 28–88; PULSE 69–98; RESP 5–41; TEMP 97.7–98; O2SAT 94–100
[2025-06-21 05:01] LABS: IMMATURE GRANULOCYTE ABSOLUTE 0.17 K/uL (0-1); NUCLEATED RED BLOOD CELLS 0.0 % (0.0-0.19); PLATELET COUNT (AUTO) 15 K/uL (130-400); RED BLOOD CELL COUNT(AUTO) 3.24 MIL/uL (4.00-5.50); RED CELL DISTRIBUTION WIDTH 20.0 % (11.0-15.5); WHITE BLOOD COUNT (AUTO) 17.9 K/uL (4.8-10.8)
[2025-06-21 05:12] LABS: INR 1.58 (0.85-1.15)
[2025-06-21 05:16] LABS: ASPARTATE AMINOTRANSFERASE 49.0 U/L (10-37); CREATININE 1.9 mg/dL (0.5-1.0); GLOMERULAR FILTR. RATE CALC 28.0 mL/min (>90); GLUCOSE,RANDOM 209.0 mg/dL (70-105); SODIUM SERUM 149.0 mmol/L (136-145); TOTAL PROTEIN, SERUM 4.2 g/dL (6.0-8.3)
[2025-06-21 05:27] LABS: UREA NITROGEN, BLOOD 101.0 mg/dL (7-18)
--- NOTE | 2025-06-21 11:58 | PN ---
[facility] PROGRESS NOTE Date of Service: Jun 21, 2025 Time of Service: 11:57 SUBJECTIVE: HISTORY OF PRESENT ILLNESS: This is a 69-year-old female past medical history of emphysema peripheral neuropathy, atrial fibrillation and hyperthyroidism who was brought by EMS to the ED for complaints of shortness of breaths,dry cough and generalized body weakness which started for the past 3 weeks and getting worse this past few days.Patient reports she lives alone and a current heavy cigarette smoker 1 pack/day.As per patient she has been going to her PCP every week x 3 weeks and was started on steroids prednisone and inhaler and patient also reports was admitted for having atrial fibrillation last 05/09/25 and was seen [place] [facility] 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 Seen and examined patient in the ER awake,alert and appears very short of breath,she has a friend at bedside and helping her from time to time with medical history as patient appears anxious as well.Patient denies chest pain,palpitation,nausea,vomiting and fever. Latest vital signs temperature 98.1, heart rate 110, respiration 35, blood pressure 140/56 saturation 96 on B iPAP 40% FiO2. Labs: WBC 19 with negative left shift of neutrophils 84, hemoglobin 9, hematocrit 30, platelet count 386. Sodium 122, chloride 93, CO2 18, BUN 23, glucose 140, lactic acid 3.1 troponin 112 BNP 3370. D-dimer 3746, PT 15, INR 1.4 PTT 28. Influenza type a and B negative SARS COVID negative. Chest x-ray result revealed bilateral perihilar and bibasilar airspace disease possibly representing pulmonary edema with small bilateral pleural effusion. [id number] cardiomegaly and pulmonary vascular congestion. While in the ER patient received Solu-Medrol 125 mg IV, albuterol two unit dose via inhalation, levofloxacin 750 mg IV, Protonix 40 mg, NS 500 mL bolus, Lasix 80 mg IV and morphine 2 mg IV. Patient was started on Precedex per ICU radha mmendation. Admit patient for further medical management. 06/09/2025: The patient was seen and evaluated bedside in ICU, no family at bedside. Patient is agitated, anxious on max doses of Precedex, saturating 100% with FiO2 60 on BiPAP. Patient is currently on norepinephrine drip 0.05 mcg/mL/kg and heparin drip q.[address] chest showed no pulmonary thromboembolism, small to medium pericardial effusion, cardiomegaly, pulmonary vascular congestion, pulmonary edema and multifocal pneumonia in bilateral lung alejandro. Continue Zosyn, doxycycline, IV Lasix, Solu-Medrol IV. Morning lab showed white count 17.4, sodium 124, bicarb 14, lactic acid 3.7, troponin 178, BNP 3060, AST 1479, ALT 561. Patient has bicarb deficit of 336, we ordered sodium bicarbonate 100 mEq single dose and we will repeat bicarb this evening. Nephrology, Cardiology, critical Care on board we will continue to follow the recommendations. 06/10/2025: The patient was seen and evaluated bedside in ICU, no family at bedside. Patient is currently on Precedex, norepinephrine drip. Abdominal ultrasound showed focal edematous wall thickening of gallbladder with minimal pericholecystic fluid, recommended HIDA scan if there is persistent clinical concern for cholecystitis. Lab showed white count trending down to 17.1, lactic acid trending down to 3, AST 3143, ALT 1515. Zosyn has been discontinued by Infectious Disease, patient was started on cefepime and vancomycin. Cardiology recommended transesophageal echocardiography once the patient become more stable. 06/11/2025: The patient was seen and evaluated bedside in ICU, no family at bedside. Patient is currently on one-to-one sitter. Patient continues to be on Precedex, norepinephrine, heparin drip. Morning lab shows white count 22.3, sodium 135, potassium 3.1, BUN 52, creatinine 1.5, fibrinogen 265, lactic acid trended down to 2, AST trended down to 946, ALT trended down to 1026. Blood culture shows no growth so far. Continue IV antibiotics as recommended by Infectious Disease. 06/12/2025: Patient was evaluated bedside in room 215 and several family members were present at the bedside. Patient also has 2 on 1 sitter. Patient was awake and alert but is mildly confused. Patient is still recovering from sepsis from community-acquired pneumonia and her white count remained stable at 22.4k. Patient oxygenating well via high-flow nasal cannula Oxymizer with flow rate of 5 L. Still continues on amiodarone drip due to AFib with telemetry consistent with Afib. Patient is still pending a HIDA scan and VIKC due to her respiratory status. We will continue linezolid, cefepime and doxycycline and start to taper methylprednisolone as per critical Care recommendations. 06/13/2025: Patient was seen and evaluated in room 215, no family at bedside. Patient is awake, alert, oriented x3, saturating 96 % with Oxymizer. Patient says that she is feeling better, denies any new or worsening symptoms. Cardiology recommended discontinuing amiodarone drip, started patient on amiodarone 200 mg twice daily. Labs show white count trending down to 19.2, BNP trending down to 3180, AST trending down to 193, ALT trending down to 608. We w ill continue linezolid, cefepime, metronidazole and doxycycline. 06/14/2025: Patient was seen and evaluated in room 215, no family at bedside. Patient is awake, alert, saturating 90% with 10L nasal cannula. Morning labs show white count trending down to 15.1, BUN 55, creatinine 1.7, BNP 4680, lactic acid 4.6, AST trending down to 105, ALT trending down to 468. We will order li mited echocardiogram to check for aortic valve vegetations and ejection fraction. Continue oral amiodarone, Lasix, Solu-Medrol, linezolid, cefepime, metronidazole, doxycycline. Plan for VICK as per cardiology. Cardiology, Infectious Disease on board we will continue to follow their recommendations. 06/15/2025: Patient was seen and evaluated in room 215, no family at bedside. Patient is awake, alert, saturating 96% with high-flow nasal cannula. Morning labs show BNP 4530, BUN 77, creatinine 1.9, white count 15.8. Limited echocardiogram was done which shows LVEF 55-60%, multiple vegetations on aortic valve leaflets. IV Lasix has been increased to 40 mg Q 8 by critical care team. Cardiology recommended discontinuing midodrine, heparin drip and patient was started on Lovenox. Continue oral amiodarone, Lasix, Solu-Medrol, linezolid, cefepime, metronidazole, doxycycline. Plan for VICK as per cardiology. Cardiology, Infectious Disease on board we will continue to follow their recommendations. 06/16/2025: Patient was seen and evaluated in room 215, no family at bedside. Patient is awake, alert, confused saturating 94% with high-flow nasal cannula. Morning labs show BNP trending down to 3070, lactic acid trending down to 3.7, potassium 2.9, BUN 80, creatinine 2.3. Negative Fluid balance today 600. We will replace potassium, continue oral amiodarone, IV Lasix, Solu-Medrol, l inezolid, cefepime, metronidazole, doxycycline. We will request case management for evaluation as patient will need long-term antibiotics for 4-6 weeks, critical care at discharge. Cardiology, Infectious Disease on board we will continue to follow their recommendations. 06/17/2025: Patient was seen and evaluated in room 215, no family at bedside. Patient is currently sedated, and unable to communicate, saturating 97% with BiPAP with a FiO2 of 60%. Patient was started on norepinephrine drip yesterday as her systolic blood pressure in the 80s. Today the plan is to wean off Precedex and norepinephrine drip. Morning labs show BNP trending down to 2170, lactic acid trending down to 3.1, BUN 82, creatinine 2.5, platelets trending down to 93. We ordered renal ultrasound, urine electrolytes, urine creatinine to further evaluate renal function. continue oral amiodarone, metoprolol, IV Lasix, Solu-Medrol, linezolid, cefepime, metronidazole, doxycycline. Cardiology, Infectious Disease on board we will continue to follow their recommendations. 06/18/2025: Patient was seen and evaluated in room 215, no family at bedside. Patient is awake, alert, 99% with high-flow nasal cannula. Patient continues on norepinephrine drip at 5.5 mL/hour. Morning lab show BNP trending down to 826, lactic acid trending up to 5.9, platelets trending down to 62, PT 17.8, INR 1.78, APTT 41.9, fibrinogen 89. We will give cryoprecipitate today. Head CT shows no hemorrhage, chronic encephalomalacia in the right occipitotemporal daisy on with associated ex vacuo dilation of occipital horn of the right lateral ventricle, most compatible with sequela of prior infarct or insult. Linezolid, IV Lasix has been stopped, continue oral amiodarone, metoprolol, Solu-Medrol, cefepime, metronidazole, doxycycline. Cardiology, Infectious Disease on board we will continue to follow their recommendations. 06.19.2025: Patient is seen and evaluated in room 215. Her mental status has improved significantly; although she remains intermittently confused, more awake, able to answer questions, and oriented to self and place. She is currently off Levophed and Precedex and is tolerating this well. A brain MRI was performed today and the report is pending. An MRCP completed today showed cardiomegaly with bilateral pleural effusions, cardiogenic pulmonary edema, diffuse anasarca, fatty liver, and a moderately distended gallbladder with markedly diffuse wall thickening and sludge, findings most consistent with systemic venous congestion and congestive hepatobiliary changes. Zyvox has been discontinued due to thrombocytopenia, and the patient continues on cefepime, F lagyl, and doxycycline per Infectious Disease. Hematology notes that she previously received heparin and Lovenox, raising concern for possible HIT versus drug-induced thrombocytopenia. She also received FFP, and although her fibrinogen had been very low, it is now 161. Hematology advised against further platelet transfusions and sent HIT antibodies; and Arixtra 2.5 mg dose as recom mended by Hematology was initiated today. Her labs today show WBC 25.8, hemoglobin 9.2, platelets 48, BNP 1790, CRP 9.3 trending down, lactic acid 4.7, ammonia <10, potassium 3.1 to be replaced per protocol, BUN 90, creatinine 2.1, and total bilirubin 9.7. 06/20/2025: Patient was seen and evaluated in room 215, no family at bedside. She is awake, alert, oriented to self and place, remains intermittently confused and saturating 95% with FiO2 60 on Oxymizer. Morning labs showed white count trending down to 19, platelets trending down to 22, BNP trended down to 1280, BUN 97, creatinine 1.9, total bilirubin 10.5, direct bilirubin 8.1, GGT 167, LDH 420. CT chest showed extensive bilateral pulmonary parenchymal infiltrates, bilateral pleural effusions and mediastinal adenopathy suggesting of infectious pneumonitis. Continue doxycycline, cefepime, Flagyl, Solu-Medrol, amiodarone, fondaparinux. Hematology, Neurology, GI, ID, Nephro, Cardiology on board. REVIEW OF SYSTEMS CONSTITUTIONAL: Denies fevers, chills, or night sweats. No unintentional weight loss reported. NEUROLOGICAL: Denies headache, amaurosis fugax, motor weakness, sensory deficit, vertigo/spinning sensation, gait abnormalities, or tremors. ENT: No hearing loss, otalgia, otorrhea, rhinitis, rhinorrhea, hoarseness, or sore throat. CARDIOVASCULAR: Denies any exertional angina, dyspnea on exertion, orthopnea, paroxysmal nocturnal dyspnea, palpitations, life-threatening arrhythmias, claudication. PULMONARY: Complaints of shortness of breaths, dry cough and chest tightness x3 weeks Denies phlegm/sputum, hemoptysis, pleuritic chest pain. SLEEP: Denies morning headaches, daytime somnolence or napping. Denies difficulty falling asleep, staying asleep, waking from sleep. Denies knowledge of snoring. GASTROINTESTINAL: Denies any type of dysphagia to either liquids or solids. Denies nausea, vomiting, pyrosis, early satiety, abdominal pain, diarrhea, constipation, or changes in stool consistency or caliber. Denies coffee-ground emesis, hematemesis, hematochezia, or melanotic stools. GENITOURINARY: Denies frequency, urgency, nocturia, hematuria or incontinence (Storage/Irritative symptoms.) Low urinary stream, straining to void, urinary intermittency or hesitancy, splitting of the voiding stream, terminal dribbling. ENDOCRINOLOGIC: Denies polyuria, polydipsia, polyphagia or heat/cold intolerances. HEMATOLOGIC: Denies thrombophilia/previous clots, or coagulopathy/bleeding disorders. ONCOLOGIC: Denies personal history of malignancy. DERMATOLOGIC: Denies rashes or pruritus. PSYCHIATRIC: Denies any suicidal or homicidal ideation. Denies hallucinations. PHYSICAL EXAM GENERAL APPEARANCE: The patient is awake, alert, and oriented to self but not to place and time ,moderate respiratory distress NEUROLOGICAL: Cranial nerves II-XII grossly intact. Motor is 5/5 in bilateral upper and lower extremities proximal to distal. No sensory deficits. HEENT: Face is symmetric. Pupils are equal and reactive. Extraocular movements are intact. NECK: Supple. No JVD. No thyromegaly. No submental, submandibular, pre- /postauricular, occipital or supraclavicular lymphadenopathy. CHEST: Normal chest expansion. No Telemetry. LUNGS: tachypneic, with NC via Oxymizer CARDIOVASCULAR: Tachycardic Regular. S1 and S2 normal. No appreciable rubs, murmurs or gallops. ABDOMEN: Soft, nontender, and nondistended. There is no rebound, voluntary guarding, or rigidity. : Deferred. Gonzalez. EXTREMITIES: Non-edematous and not cyanotic. No clubbing. Good capillary refill. SKIN: No skin breakdown. Vital Signs (last 8hr) Date Time Temp Pulse Resp B/P (MAP) Pulse Ox O2 Delivery O2 Flow Rate FiO2 06/21/25 10:55 18 N/Cannula Oximizer Hi LPM 3.0 06/21/25 10:55 76 18 06/21/25 10:49 98.1 78 16 114/32 96 Room Air 06/21/25 10:38 82 16 131/88 96 N/C High Flow System 10.0 06/21/25 09:38 80 18 115/47 96 N/C High Flow System 10.0 06/21/25 09:23 80 14 127/35 100 N/C High Flow System 10.0 06/21/25 09:08 81 15 146/45 100 N/C High Flow System 10.0 06/21/25 08:22 Hi-Flow N/C+ 10 40 Bi-PAP+ 06/21/25 07:53 97.7 96 27 147/52 99 N/C High Flow System 10.0 06/21/25 07:38 96 15 136/49 100 06/21/25 07:23 88 13 141/52 100 06/21/25 07:08 81 11 134/37 100 06/21/25 07:01 18 N/Cannula Oximizer Hi LPM 5.0 06/21/25 06:45 77 18 06/21/25 06:44 79 22 40 06/21/25 06:07 84 20 82/41 100 06/21/25 05:53 69 21 77/32 100 06/21/25 05:38 76 18 117/41 100 BIPAP 06/21/25 05:38 76 18 117/41 100 06/21/25 05:23 75 10 119/71 100 06/21/25 05:23 75 10 119/71 100 BIPAP 06/21/25 05:08 71 12 97/39 100 BIPAP 06/21/25 05:08 71 12 97/39 100 06/21/25 04:53 71 9 83/28 100 BIPAP 06/21/25 04:53 71 9 83/28 100 06/21/25 04:38 75 24 122/37 100 06/21/25 04:38 97.9 75 24 122/37 100 BIPAP 06/21/25 04:33 74 26 117/49 100 BIPAP 06/21/25 04:33 74 26 117/49 100 06/21/25 04:26 77 22 40 06/21/25 04:23 74 15 91 06/21/25 04:08 73 14 100 06/21/25 04:00 100 Bi-PAP+ 40 LABS: Laboratory: Test 06/21/25 11:20 06/21/25 04:34 06/20/25 06:35 06/20/25 05:00 Range/Units Whole Blood Glucose 192 H 70-110 MG/DL White Blood Count 17.9 H 4.8-10.8 K/uL Red Blood Count 3.24 L 4.00-5.50 MIL/uL Hemoglobin 7.7 L 12.0-16.0 g/dL Hematocrit 23.6 L 36-48 % Mean Corpuscular Volume 72.8 L 79-99 fL Mean Corpuscular Hemoglobin 23.8 L 27.0-33.0 pg Mean Corpuscular Hemoglobin Concent 32.6 32.0-36.0 g/dL Red Cell Distribution Width 20.0 H 11.0-15.5 % Platelet Count 15 #L 130-400 K/uL Mean Platelet Volume 7.5-10.5 fL Immature Granulocyte % (Auto) 1.0 0-1 % Neutrophils (%) (Auto) 94.7 H 40.0-77.0 % Lymphocytes (%) (Auto) 2.2 L 21.0-51.0 % Monocytes (%) (Auto) 2.0 L 3.0-13.0 % Eosinophils (%) (Auto) 0.0 0.0-8.0 % Basophils (%) (Auto) 0.1 0.0-5.0 % Neutrophils # (Auto) 16.9 H 1.8-7.7 K/uL Lymphocytes # (Auto) 0.4 L 1.0-4.8 K/uL Monocytes # (Auto) 0.4 0.1-1.0 K/uL Eosinophils # (Auto) 0.00 0.00-0.70 K/uL Basophils # (Auto) 0.02 0.00-0.20 K/uL Absolute Immature Granulocyte (auto 0.17 0-1 K/uL Nucleated Red Blood Cells 0.0 0.0-0.19 % Prothrombin Time 16.0 H 9.6-11.6 SEC Prothromb Time International Ratio 1.58 H 0.85-1.15 Fibrinogen 144 L 180-350 mg/dL Sodium Level 149 H 136-145 mmol/L Potassium Level 3.5 3.5-5.1 mmol/L Chloride Level 110 101-111 mmol/L Carbon Dioxide Level 27 21-32 mmol/L Blood Urea Nitrogen 101 *H 7-18 mg/dL Creatinine 1.9 H 0.5-1.0 mg/dL Glomerular Filtration Rate Calc 28 >90 mL/min Random Glucose 209 H 70-105 mg/dL Total Calcium 7.9 L 8.5-10.1 mg/dL Total Bilirubin 12.9 #H 0.2-1.0 mg/dL Aspartate Amino Transf (AST/SGOT) 49 H 10-37 U/L Alanine Aminotransferase (ALT/SGPT) 105 H 12-78 U/L Alkaline Phosphatase 117 50-136 U/L Total Protein 4.2 L 6.0-8.3 g/dL Albumin 1.7 L 3.5-5.0 g/dL Thyroid Stimulating Hormone (TSH) 0.94 # 0.36-3.74 uIU/mL Thyroxine (T4) 9.5 4.7-13.3 ug/dL Phosphorus Level 4.6 2.5-4.9 mg/dL Magnesium Level 2.10 1.80-2.40 mg/dL Direct Bilirubin 8.1 *H 0.0-0.3 mg/dL Gamma Glutamyl Transpeptidase 167 H 5-85 U/L Lactate Dehydrogenase 420 H 81-234 U/L C-Reactive Protein, Quantitative 9.00 H 0.5-3.0 mg/L B-Type Natriuretic Peptide 1280 H 0-100 pg/mL Lactic Acid Level 5.2 H 0.8-2.5 mmol/L Procalcitonin 0.29 0.05-0.5 ng/mL Test 06/19/25 19:15 Range/Units Blood Gas Specimen Type Arterial Arterial Blood pH 7.391 7.350-7.450 Arterial Blood Partial Pressure CO2 34 32-45 mmHg Arterial Blood Partial Pressure O2 65.8 L 83.0-108.0 mmHg Arterial Blood HCO3 20.3 L 21.0-28.0 mmol/L Arterial Blood Oxygen Saturation 91.8 L 94.0-98.0 % Arterial Blood Base Excess -4.0 L -2.0-3.0 mmol/L Hemoglobin (Blood Gas) 10.4 L 12.0-16.0 g/dL Sodium (Blood Gas) 139 136-145 MMOL/L Bedside Potassium (Blood Gas) 3.3 L 3.4-4.5 MMOL/L Bedside Chloride (Blood Gas) 106 98-107 MMOL/L Bedside Glucose (Blood Gas) 179 H 65-95 MG/DL Bedside Ionized Calcium (Blood Gas) 1.08 L 1.15-1.33 MMOL/L Bedside Lactic Acid (Blood Gas) 4.65 *H 0.36-0.75 MMOL/L Blood Gas Temperature 37.0 35.5-37.0 CELSIUS Blood Gas Flow-by 8.00 0.00-15.00 L/min Blood Gas Vent Mode OXY 8L ROOM AIR FiO2 80.0 % Blood Gas Specimen Comment RR RN Current Medications Medications (Trade) Dose Ordered Sig/Rossy Route PRN Reason Start Time Stop Time Status Last Admin Dose Admin Acetaminophen (TYLenol 325MG TAB) 650 mg Q4H PRN PO MILD PAIN (1-3) 06/08/25 20:30 07/08/25 20:29 06/12/25 10:16 650 MG Acetaminophen (TYLenol 325MG TAB) 650 mg Q6H PRN PO TEMPERATURE GREATER THAN 101.5 06/08/25 20:30 07/08/25 20:29 06/12/25 20:47 650 MG Albuterol (DUOneb) 1 udvial O1UMHNY IH 06/08/25 22:00 07/08/25 21:59 06/21/25 11:14 1 UDVIAL Amiodarone HCl (pacERONE 200MG) 200 mg BID PO 06/13/25 21:00 07/13/25 20:59 06/21/25 09:01 200 MG Amiodarone HCl 540 mg/Dextrose 300 ml @ 16.667 mls/ hr PROTOCOL IV 06/12/25 10:00 06/13/25 03:59 DC 06/12/25 11:33 16.667 MLS/HR Amiodarone HCL/ Dextrose 100 ml @ 600 mls/hr PROTOCOL IV 06/12/25 05:00 06/12/25 06:53 DC 06/12/25 05:10 600 MLS/HR Amiodarone HCL/ Dextrose 100 ml @ 0 mls/hr PROTOCOL IV 06/12/25 07:00 06/12/25 07:01 DC Amiodarone HCL/ Dextrose 200 ml @ 33.333 mls/ hr PROTOCOL IV 06/12/25 05:00 06/12/25 06:53 DC 06/12/25 05:11 33.333 MLS/HR Budesonide (Pulmicort 0.5 Mg/2ml) 0.5 mg BIDRESP IH 06/09/25 18:00 07/09/25 17:59 06/21/25 06:39 0.5 MG Cefepime HCl (MAXipime 1 GM vial) 1 gm Q12H IVPB 06/10/25 14:00 06/10/25 14:35 DC 06/10/25 14:23 1 GM Cefepime HCl (MAXipime 1 GM vial) 1 gm Q12H9 IVPB 06/10/25 21:00 06/24/25 13:59 06/21/25 09:05 1 GM Cefepime HCl (MAXipime 1 GM vial) 1 gm Q8H IVPB 06/10/25 09:30 06/10/25 09:41 DC Dexmedetomidine/ Sodium Chloride (PRECEdex 200MCG/ 50ML-NS) 200 mcg PROTOCOL IV 06/16/25 11:30 07/16/25 11:29 06/21/25 02:25 200 MCG Dexmedetomidine/ Sodium Chloride (PRECEdex 400MCG/ 100ML-NS) 400 mcg PROTOCOL IV 06/08/25 20:00 06/11/25 17:00 DC 06/11/25 09:27 400 MCG Dextrose (D50w) 50 ml AD PRN IV HYPOGLYCEMIA PROTOCOL 06/17/25 14:30 07/17/25 14:29 Dorzolamide/ Timolol (Cosopt Eye Drops) 1 DROP BID OP 06/09/25 21:00 07/09/25 20:59 06/21/25 09:02 1 ML Doxycycline Hyclate 250 ml @ 125 mls/hr Q12H IV 06/08/25 23:00 06/18/25 22:59 DC 06/18/25 11:06 125 MLS/HR Doxycycline Hyclate 250 ml @ 125 mls/hr Q12H IV 06/19/25 13:00 06/29/25 12:59 06/21/25 01:22 125 MLS/HR Enoxaparin Sodium (Lovenox (Pharmacy To Dose)) 1 unit Q24H SQ 06/15/25 14:00 06/15/25 14:01 DC Enoxaparin Sodium (Lovenox 80mg) 70 mg Q24H SQ 06/15/25 14:30 06/17/25 12:11 DC 06/16/25 14:39 70 MG Famotidine (Pepcid 20mg Vial) 20 mg DAILY IV 06/09/25 09:00 06/09/25 13:09 DC 06/09/25 08:39 20 MG Fluticasone Propionate (FLOnase 50 mcg/ spray 16g bottle) 1 SPRAY DAILY EN 06/12/25 15:00 07/12/25 14:59 06/21/25 09:01 1 SPRAYS Fondaparinux (Arixtra) 2.5 mg DAILY SQ 06/19/25 09:30 07/19/25 09:29 06/21/25 09:00 2.5 MG Furosemide (LASix 20MG VIAL) 20 mg BID IVP 06/12/25 09:00 06/12/25 09:19 DC 06/12/25 08:57 20 MG Furosemide (LASix 40MG VIAL) 20 mg BID IVP 06/11/25 21:00 06/12/25 06:54 DC 06/11/25 21:26 20 MG Furosemide (LASix 40MG VIAL) 40 mg BID IVP 06/08/25 21:00 06/11/25 17:00 DC 06/11/25 09:32 40 MG Furosemide (LASix 40MG VIAL) 40 mg BID IVP 06/12/25 21:00 06/14/25 13:19 DC 06/14/25 08:24 40 MG Furosemide (LASix 40MG VIAL) 40 mg Q12H IV 06/20/25 13:30 06/20/25 13:45 DC Furosemide (LASix 40MG VIAL) 40 mg Q8H6 IVP 06/14/25 14:00 06/17/25 12:12 DC 06/17/25 05:22 40 MG Glucagon (Glucagon 1mg Kit) 1 mg AD PRN IM HYPOGLYCEMIA PROTOCOL 06/17/25 14:30 07/17/25 14:29 Heparin Sodium (Porcine) (HEParin 5,000 UNIT VIAL) *calculation based on ACTUAL B... AD PRN IV HEPARIN PROTOCOL 06/09/25 04:00 06/15/25 14:01 DC Heparin Sodium/ Dextrose 250 ml @ 0 mls/hr Q6H IV 06/09/25 04:00 06/15/25 13:58 DC 06/15/25 02:42 4.7 MLS/HR Home Med (Home Medication) (Methimazole 5MG TAB) - 0.5 TAB... DAILY PO 06/10/25 09:00 07/10/25 08:59 06/21/25 09:02 0.5 EACH Insulin Human Regular (humuLIN R 100 UNIT/ML 3ML) INSULIN SLIDING SCAL... ACHS SQ 06/17/25 16:30 06/18/25 10:03 DC 06/18/25 08:53 6 UNIT Insulin Human Regular (humuLIN R 100 UNIT/ML 3ML) INSULIN SLIDING SCAL... ACHS SQ 06/18/25 11:30 07/18/25 11:29 06/21/25 11:24 4 UNIT Lactulose (Constulose 20gm/ 30ml Udcup) 20 gm BID PRN PO CONSTIPATION 06/13/25 07:30 07/13/25 07:29 06/20/25 16:32 20 GM Latanoprost (Xalatan) 1 DROP HS OD 06/09/25 21:00 07/09/25 20:59 06/20/25 20:29 1 DROP Levofloxacin/ Dextrose 100 ml @ 100 mls/hr Q24H IV 06/09/25 20:00 06/08/25 22:40 DC Linezolid 300 ml @ 150 mls/hr Q12H IV 06/11/25 11:30 06/11/25 12:38 DC Linezolid 300 ml @ 150 mls/hr Q12H IV 06/11/25 14:30 06/18/25 12:55 DC 06/18/25 02:07 150 MLS/HR Magnesium Sulfate 50 ml @ 0 mls/hr PROTOCOL PRN IV MAGNESIUM PROTOCOL 06/09/25 17:00 07/09/25 16:59 06/12/25 03:21 25 MLS/HR Methylprednisolone Sodium Succinate (Solu-medROL 40MG) 40 mg Q12H9 IVP 06/12/25 21:00 07/09/25 13:29 06/21/25 09:05 40 MG Methylprednisolone Sodium Succinate (Solu-medROL 40MG) 40 mg Q8H IVP 06/09/25 13:30 06/12/25 14:11 DC 06/12/25 13:23 40 MG Metoprolol Tartrate (loprESSOR) 2.5 mg Q6H PRN IV heart rate greater than 110 06/12/25 03:30 07/12/25 03:29 06/19/25 14:15 2.5 MG Metoprolol Tartrate (loprESSOR) 25 mg BID PO 06/12/25 21:00 06/17/25 12:12 DC 06/16/25 21:24 25 MG Metoprolol Tartrate (loprESSOR) 25 mg BID PO 06/19/25 21:00 07/19/25 20:59 06/21/25 09:01 25 MG Metronidazole/ Sodium Chloride 100 ml @ 100 mls/hr Q8H6 IVPB 06/10/25 14:00 06/20/25 13:59 DC 06/20/25 05:13 100 MLS/HR Metronidazole/ Sodium Chloride (flaGYL) 500 mg Q8H IV 06/20/25 16:00 06/30/25 15:59 06/21/25 09:01 500 MG Midodrine (PROAMatine 5 MG TABLET) 5 mg TID PO 06/10/25 14:00 06/11/25 08:52 DC 06/10/25 20:08 5 MG Midodrine (PROAMatine 5 MG TABLET) 10 mg TID PO 06/11/25 09:00 06/15/25 13:58 DC 06/14/25 21:14 10 MG Nicotine (Nicoderm) 21 mg DAILY TD 06/08/25 23:00 07/08/25 22:59 06/21/25 09:03 21 MG Norepinephrine 250 ml @ 0 mls/hr PROTOCOL IV 06/09/25 01:00 07/09/25 00:59 06/17/25 05:41 27.7 MLS/HR Olanzapine (ZyPREXA 5 mg tab) 5 mg BID PO 06/10/25 21:00 06/17/25 12:13 DC 06/16/25 21:24 5 MG Ondansetron HCl (zoFRAN 4MG INJ) 4 mg Q6H PRN IV NAUSEA/VOMITING 06/08/25 20:30 07/08/25 20:29 Oseltamivir Phosphate (Tamiflu) 75 mg BID PO 06/09/25 21:00 06/10/25 09:08 DC 06/10/25 09:03 75 MG Pantoprazole Sodium (PROTonix 40MG INJ) 40 mg DAILY IVP 06/10/25 09:00 07/10/25 08:59 06/21/25 09:00 40 MG Pharmacy Profile Note (Pharmacy Communication) 1 each ONCE MISC 06/09/25 03:00 06/09/25 03:24 DC Pharmacy Profile Note (Pharmacy Communication) 1 each ONCE MISC 06/11/25 11:30 06/11/25 11:19 DC Pharmacy Profile Note (Pharmacy Communication) 1 each ONCE MISC 06/16/25 11:00 06/16/25 11:08 DC Pharmacy Profile Note (Pharmacy Communication) 1 each ONCE MISC 06/16/25 17:00 06/16/25 17:10 DC Phytonadione (Vitamin K 10mg/ 1ml Adult Vial) 10 mg DAILY SQ 06/11/25 09:00 06/13/25 15:00 DC 06/13/25 09:24 10 MG Phytonadione (Vitamin K 10mg/ 1ml Adult Vial) 10 mg Q24H SQ 06/10/25 15:00 06/10/25 16:55 DC 06/10/25 15:11 10 MG Piperacillin Sod/ Tazobactam Sod (Zosyn 3.375gm+NS 50ml) 3.375 gm Q8H IV 06/08/25 23:00 06/10/25 09:08 DC 06/10/25 07:10 3.375 GM Potassium Chloride 100 ml @ 50 mls/hr AD PRN IV POTASSIUM PROTOCOL 06/09/25 17:00 06/11/25 06:10 DC 06/09/25 21:18 50 MLS/HR Potassium Chloride 100 ml @ 100 mls/hr AD PRN IV POTASSIUM PROTOCOL 06/09/25 17:00 07/09/25 16:59 06/18/25 16:46 100 MLS/HR Potassium Chloride 100 ml @ 100 mls/hr AD PRN IV POTASSIUM PROTOCOL 06/16/25 12:00 07/16/25 11:59 06/19/25 06:17 100 MLS/HR Potassium Chloride (K-Dur/Klor-Con 20meq) 20 meq AD PRN PO POTASSIUM PROTOCOL 06/09/25 17:00 07/09/25 16:59 Potassium Chloride (KCl 10% Elixir 20meq/15ml) 20 meq AD PRN PO POTASSIUM PROTOCOL 06/09/25 17:00 07/09/25 16:59 Sevelamer HCl (RENAgel 800 MG TAB) 400 mg TIDMEALS PO 06/17/25 12:00 06/17/25 15:36 DC Sodium Bicarbonate 150 meq/Sodium Chloride 1,150 ml @ 100 mls/hr [id number] IVP 06/09/25 12:00 06/09/25 12:29 DC Sodium Bicarbonate (Sodium Bicarbonate) 650 mg BID PO 06/13/25 11:30 06/13/25 11:58 DC Sodium Bicarbonate (Sodium Bicarbonate) 1,300 mg BID PO 06/13/25 21:00 07/13/25 20:59 06/21/25 09:05 1,300 MG Vancomycin HCl 250 ml @ 125 mls/hr Q24H IV 06/11/25 10:00 06/11/25 11:15 DC 06/11/25 09:31 125 MLS/HR Vancomycin HCl (Vancomycin Protocol) 1 each AD IV 06/10/25 09:30 06/11/25 11:15 DC Ziprasidone (Geodon) 10 mg Q6H PRN IM AGITATION/PSYCHOSIS 06/09/25 18:00 12/4/25 12:13 DC 06/11/25 17:28 10 MG DIAGNOSTICS / RADIOLOGY: [ ] ASSESSMENT: Acute hypoxemic respiratory failure POA Sepsis secondary to community acquired pneumonia-POA Infective endocarditis involving the aortic valve- culture negative. Aortic insufficiency due to Multiple vegetations seen on the aortic valve leafelts. (2D echo 06/09/2025) Hepatic transaminitis Acute multifactorial delirium Acute CHF exacerbation with possible pulmonary edema POA Elevated troponin likely due to type 2 demand ischemia POA Acute kidney injury Acute COPD exacerbation POA Nicotine Dependence POA Acute anemia POA Acute leukocytosis POA Moderate Hyponatremia and hypochloremia POA Hyperglycemia POA Lactic acidosis POA Hyperthyroidism POA Peripheral neuropathy POA History of emphysema POA History of atrial fibrillation not on anticoagulation PLAN: Acute hypoxemic respiratory failure POA On Presentation patient's respiratory rate 30, heart rate 108, saturating 96% with2 L nasal cannula Chest x-ray showed bilateral perihilar and bibasilar airspace disease Patient on high-flow nasal cannula, continue DuoNeb q.4 Continue IV Solu-Medrol 40 mg q.12h IV Critical Care on board, we will follow the recommendations. Sepsis secondary to community acquired pneumonia-POA On presentation heart rate 108, respiratory rate 30, white count 19.7, lactic acid 3.1 Chest x-ray showed bilateral perihilar and bibasilar airspace disease CT chest showed multifocal pneumonia bilateral lungs, pulmonary vascular congestion, pulmonary edema Patient was started on norepinephrine drip on 06/16/2025 due to systolic blood pressure in 80s- weaned off today Continue on cefepime IV q.12h Continue doxycycline q.12h IV , metronidazole q.8 IV We will trend lactic acid Moderate Hyponatremia and hypochloremia POA On presentation sodium 122, chloride 93 Serum osmolality low at 274, urine osmolality normal, BNP 4530 Hyponatremia most likely due to fluid overload Discontinued IV Lasix 40 mg q8 Sodium today 143 Nephrology on board, we will follow the recommendations. Aortic insufficiency due to Multiple vegetations seen on the aortic valve leafelts. (2D echo 06/09/2025) 2D echocardiogram showed LVEF 50-55%, normal left ventricular diastolic function, normal right ventricular systolic function Multiple vegetations seen on aortic valve leaflets, difficulty to assess severity of aortic insufficiency, moderate mitral valve regurgitation BNP today 1280 continue cefepime Continue doxycycline q.12h IV, metronidazole q.8 IV Blood culture showed no growth so far We will Request consultation from Infectious Disease VICK could not be performed as patient could not tolerate Hepatic transaminitis An MRCP completed today showed cardiomegaly with bilateral pleural effusions, cardiogenic pulmonary edema, diffuse anasarca , fatty liver, and a moderately distended gallbladder with markedly diffuse wall thickening and sludge, findings most consistent with systemic venous congestion and congestive hepatobiliary changes in the setting of suspected heart failure GI on board for further evaluation. Acute multifactorial delirium Her mental status has improved significantly; although she remains intermittently confused A brain MRI was performed today and the report is pending. GI Prophylaxis with famotidine 20 mg IV daily DVT prophylaxis from JULIANNE Thomas MD Jun 21, 2025 11:58
--- NOTE | 2025-06-21 12:28 | NUR ---
DR GO'S OFFICE CALLED TO RELAY CBC/PLATELET RESULTS. DR RAINES ALSO AWARE. AND HE SAID HE WOULD REACH OUT TO DR GO.
--- NOTE | 2025-06-21 13:58 | NUR ---
DR DONAVAN UMANZOR, DOES NOT WANT TO TRANSFUSE [facility], DR JAZMIN UMANZOR. LABS ORDERED FOR TOMORROW.
--- NOTE | 2025-06-21 14:58 | NUR ---
DR BISHOP ROUNDED. DISCUSSED CASE WITH SON HANG HOGAN AND PT MADE DNR. SEE ORDERS AND RESUSITATIVE MEASURES' REQUEST/CONSENT IN CHART. ALESIA CHEUNG FOR CARDIOLOGY MADE AWARE OF TRANSFER TO [facility], DR BOYCE, DR GO AND DR RAINES ALSO MADE AWARE. FINISHING LAB TECHNICIAN BRANDT MADE AWARE.
--- NOTE | 2025-06-21 14:58 | NUR ---
DC PLAN NURSE CALLED [facility] SAID THEY ARE OKAY WITH TRANSFER TO [facility]. CM CALLED LT[facility] SAID HAS A BED AVAILABLE. WANTS UPDATES TO UPLOAD THEN WILL CALL WITH MOT INFO.
--- NOTE | 2025-06-21 16:11 | NUR ---
SPEECH THERAPY COMPLETED S: Patient is alert and oriented. Patient's friend was present. No solids trialed this date as patient states she is feeling tired. O: Oral motor exercises, thin liquid trials. A: The patient completed oral motor exercises for lingual and labial structures with min assist in 100% of opportunities given frequent breaks due to fatigue. Patient tolerated thin liquids without s/s of aspiration for single sips. P: Continue with plan of care for dysphagia management. Communication with nurse regarding session, continue with current diet. Addendum: 06/21/25 at 1612 by TODD CHÁVEZ [facility] Amended: Links added.
--- NOTE | 2025-06-21 16:14 | PN ---
INFECTIOUS DISEASE PROGRESS NOTE Date of Service: Jun 21, 2025 SUBJECTIVE: This is a 69-year-old female patient who was seen at bedside in room 215. Patient was sitting up on the bedside chair and tolerating well. Continues with generalized jaundice. Per nursing report patient has been approved to [facility] and will possibly be discharged today. Patient is to continue on current antibiotics cefepime and doxycycline and Dr. Boyce to be consulted upon admission to [facility]. PHYSICAL EXAM EYES: Pupils equal and reactive. Icteric. HENT: No oral thrush seen, moist Oral mucosa. NECK: Supple, no JVD or thyromegaly. LUNGS: Continuous BiPAP.. CARDIOVASCULAR: S1, S2 regular. No murmur heard. ABDOMEN: Soft, non tender, bowel sounds present. CENTRAL NERVOUS SYSTEM: SKIN: No rashes, no swelling. Jaundice. LYMPHATICS: No peripheral lymphadenopathy. MUSCULOSKELETAL: No joint swelling, erythema or tenderness. EXTREMITIES: No cyanosis or clubbing. BACK: No deformity, no pressure ulcer. GENITOURINARY: No dysuria or hematuria. Gonzalez catheter. Vital Sign (Last 12 Hours) 06/21/25 06/21/25 06/21/25 06/21/25 04:23 04:26 04:33 04:33 Pulse 74 77 74 74 Resp 15 22 26 26 B/P (MAP) 117/49 117/49 Pulse Ox 91 100 100 O2 Delivery BIPAP FiO2 40 06/21/25 06/21/25 06/21/25 06/21/25 04:38 04:38 04:53 04:53 Temp 97.9 Pulse 75 75 71 71 Resp 24 24 9 9 B/P (MAP) 122/37 122/37 83/28 83/28 Pulse Ox 100 100 100 100 O2 Delivery BIPAP BIPAP 06/21/25 06/21/25 06/21/25 06/21/25 05:08 05:08 05:23 05:23 Pulse 71 71 75 75 Resp 12 12 10 10 B/P (MAP) 97/39 97/39 119/71 119/71 Pulse Ox 100 100 100 100 O2 Delivery BIPAP BIPAP 06/21/25 06/21/25 06/21/25 06/21/25 05:38 05:38 05:53 06:07 Pulse 76 76 69 84 Resp 18 18 21 20 B/P (MAP) 117/41 117/41 77/32 82/41 Pulse Ox 100 100 100 100 O2 Delivery BIPAP 06/21/25 06/21/25 06/21/25 06/21/25 06:44 06:45 07:01 07:08 Pulse 79 77 81 Resp 22 18 18 11 B/P (MAP) 134/37 Pulse Ox 100 O2 Delivery N/Cannula Oximizer Hi LPM O2 Flow Rate 5.0 FiO2 40 06/21/25 06/21/25 06/21/25 06/21/25 07:23 07:38 07:53 08:22 Temp 97.7 Pulse 88 96 96 Resp 13 15 27 B/P (MAP) 141/52 136/49 147/52 Pulse Ox 100 100 99 O2 Delivery N/C High Flow System Hi-Flow N/C+ Bi-PAP+ O2 Flow Rate 10.0 10 FiO2 40 06/21/25 06/21/25 06/21/25 06/21/25 09:08 09:23 09:38 10:38 Pulse 81 80 80 82 Resp 15 14 18 16 B/P (MAP) 146/45 127/35 115/47 131/88 Pulse Ox 100 100 96 96 O2 Delivery N/C High Flow System N/C High Flow System N/C High Flow System N/C High Flow System O2 Flow Rate 10.0 10.0 10.0 10.0 06/21/25 06/21/25 06/21/25 06/21/25 10:49 10:55 10:55 11:30 Temp 98.1 Pulse 78 76 Resp 16 18 18 B/P (MAP) 114/32 Pulse Ox 96 97 O2 Delivery Room Air N/Cannula Oximizer Hi LPM Room Air* Bi-PAP+ O2 Flow Rate 3.0 0 FiO2 21 06/21/25 06/21/25 06/21/25 06/21/25 11:38 12:38 13:38 14:38 Pulse 87 81 85 86 Resp 15 20 19 21 B/P (MAP) 118/50 129/47 133/39 123/73 Pulse Ox 97 96 96 88 O2 Delivery Room Air Room Air Room Air Room Air 06/21/25 15:48 Pulse Ox 94 O2 Delivery Room Air* O2 Flow Rate 0 FiO2 21 Intake & Output (last 24hrs) 06/20/25 06/20/25 06/21/25 15:00 23:00 07:00 Intake Total 786.0 ml 486.0 ml 687.8 ml Output Total 800 ml 600 ml 500 ml Balance -14.0 ml -114.0 ml 187.8 ml LABS: Laboratory: Test 06/21/25 11:20 06/21/25 04:34 06/20/25 06:35 06/20/25 05:00 Range/Units Whole Blood Glucose 192 H 70-110 MG/DL White Blood Count 17.9 H 4.8-10.8 K/uL Red Blood Count 3.24 L 4.00-5.50 MIL/uL Hemoglobin 7.7 L 12.0-16.0 g/dL Hematocrit 23.6 L 36-48 % Mean Corpuscular Volume 72.8 L 79-99 fL Mean Corpuscular Hemoglobin 23.8 L 27.0-33.0 pg Mean Corpuscular Hemoglobin Concent 32.6 32.0-36.0 g/dL Red Cell Distribution Width 20.0 H 11.0-15.5 % Platelet Count 15 #L 130-400 K/uL Mean Platelet Volume 7.5-10.5 fL Immature Granulocyte % (Auto) 1.0 0-1 % Neutrophils (%) (Auto) 94.7 H 40.0-77.0 % Lymphocytes (%) (Auto) 2.2 L 21.0-51.0 % Monocytes (%) (Auto) 2.0 L 3.0-13.0 % Eosinophils (%) (Auto) 0.0 0.0-8.0 % Basophils (%) (Auto) 0.1 0.0-5.0 % Neutrophils # (Auto) 16.9 H 1.8-7.7 K/uL Lymphocytes # (Auto) 0.4 L 1.0-4.8 K/uL Monocytes # (Auto) 0.4 0.1-1.0 K/uL Eosinophils # (Auto) 0.00 0.00-0.70 K/uL Basophils # (Auto) 0.02 0.00-0.20 K/uL Absolute Immature Granulocyte (auto 0.17 0-1 K/uL Nucleated Red Blood Cells 0.0 0.0-0.19 % Prothrombin Time 16.0 H 9.6-11.6 SEC Prothromb Time International Ratio 1.58 H 0.85-1.15 Fibrinogen 144 L 180-350 mg/dL Sodium Level 149 H 136-145 mmol/L Potassium Level 3.5 3.5-5.1 mmol/L Chloride Level 110 101-111 mmol/L Carbon Dioxide Level 27 21-32 mmol/L Blood Urea Nitrogen 101 *H 7-18 mg/dL Creatinine 1.9 H 0.5-1.0 mg/dL Glomerular Filtration Rate Calc 28 >90 mL/min Random Glucose 209 H 70-105 mg/dL Total Calcium 7.9 L 8.5-10.1 mg/dL Total Bilirubin 12.9 #H 0.2-1.0 mg/dL Aspartate Amino Transf (AST/SGOT) 49 H 10-37 U/L Alanine Aminotransferase (ALT/SGPT) 105 H 12-78 U/L Alkaline Phosphatase 117 50-136 U/L Total Protein 4.2 L 6.0-8.3 g/dL Albumin 1.7 L 3.5-5.0 g/dL Thyroid Stimulating Hormone (TSH) 0.94 # 0.36-3.74 uIU/mL Thyroxine (T4) 9.5 4.7-13.3 ug/dL Phosphorus Level 4.6 2.5-4.9 mg/dL Magnesium Level 2.10 1.80-2.40 mg/dL Direct Bilirubin 8.1 *H 0.0-0.3 mg/dL Gamma Glutamyl Transpeptidase 167 H 5-85 U/L Lactate Dehydrogenase 420 H 81-234 U/L C-Reactive Protein, Quantitative 9.00 H 0.5-3.0 mg/L B-Type Natriuretic Peptide 1280 H 0-100 pg/mL Lactic Acid Level 5.2 H 0.8-2.5 mmol/L Procalcitonin 0.29 0.05-0.5 ng/mL Test 06/19/25 19:15 Range/Units Blood Gas Specimen Type Arterial Arterial Blood pH 7.391 7.350-7.450 Arterial Blood Partial Pressure CO2 34 32-45 mmHg Arterial Blood Partial Pressure O2 65.8 L 83.0-108.0 mmHg Arterial Blood HCO3 20.3 L 21.0-28.0 mmol/L Arterial Blood Oxygen Saturation 91.8 L 94.0-98.0 % Arterial Blood Base Excess -4.0 L -2.0-3.0 mmol/L Hemoglobin (Blood Gas) 10.4 L 12.0-16.0 g/dL Sodium (Blood Gas) 139 136-145 MMOL/L Bedside Potassium (Blood Gas) 3.3 L 3.4-4.5 MMOL/L Bedside Chloride (Blood Gas) 106 98-107 MMOL/L Bedside Glucose (Blood Gas) 179 H 65-95 MG/DL Bedside Ionized Calcium (Blood Gas) 1.08 L 1.15-1.33 MMOL/L Bedside Lactic Acid (Blood Gas) 4.65 *H 0.36-0.75 MMOL/L Blood Gas Temperature 37.0 35.5-37.0 CELSIUS Blood Gas Flow-by 8.00 0.00-15.00 L/min Blood Gas Vent Mode OXY 8L ROOM AIR FiO2 80.0 % Blood Gas Specimen Comment RR EQUINE INTERNSHIP: Hypoxic respiratory failure, requiring oxygen support. Multifocal pneumonia. Aortic valve Endocarditis. Sepsis. Gemella Morbillorum bacteremia. Leukocytosis. Acute renal failure. Multifactorial encephalopathy. Chronic obstructive pulmonary disease exacerbation. Chronic tobacco use. Atrial fibrillation. Thrombocytopenia. Elevated liver enzymes, improving. Generalized jaundice. PLAN: Continue cefepime. Continue doxycycline. Continue GI prophylaxis. Continue bronchodilators. Continue oxygen support Monitor renal function. Currently on Clinimix. Patient has been approved to [facility]. This case was reviewed and discussed with my supervising physician Dr. Boyce and the above assessment and plan was formulated and agreed upon. ATTESTATION BY PHYSICIAN I have seen and examined the patient. I reviewed the documentation, medical decision making, and treatment plan as noted by the mid-level provider above. I agree with the findings and plan of care. RIKY BOYCE MD, [facility]TA [facility] Jun 21, 2025 16:14
--- NOTE | 2025-06-21 16:19 | HMCIMG ---
EXAM: CR Chest, 1 View. CLINICAL HISTORY: Pulmonary edema COMPARISON: 06/20/2025 FINDINGS: The right PICC line tip is at the SVC. LUNGS: Interval decrease in pulmonary edema with persistent, stable left basilar airspace disease and pleural effusion. Stable right basilar atelectasis. PLEURAL SPACES: No pneumothorax. MEDIASTINUM: The cardiac size is stable BONES: No aggressive appearing osseous lesion seen. IMPRESSION: Interval decrease in pulmonary edema with persistent, stable left basilar airspace disease and pleural effusion. /Rolla
--- NOTE | 2025-06-21 17:01 | DS ---
Discharge Summary Assessment/Plan: ASSESSMENT: Acute hypoxemic respiratory failure POA Sepsis secondary to community acquired pneumonia-POA Infective endocarditis involving the aortic valve- culture negative. Aortic insufficiency due to Multiple vegetations seen on the aortic valve leafelts. (2D echo 06/09/2025) Hepatic transaminitis Acute multifactorial delirium Acute CHF exacerbation with possible pulmonary edema POA Elevated troponin likely due to type 2 demand ischemia POA Acute kidney injury Acute COPD exacerbation POA Nicotine Dependence POA Acute anemia POA Acute leukocytosis POA Moderate Hyponatremia and hypochloremia POA Hyperglycemia POA Lactic acidosis POA Hyperthyroidism POA Peripheral neuropathy POA History of emphysema POA History of atrial fibrillation not on anticoagulation PLAN: Acute hypoxemic respiratory failure POA On Presentation patient's respiratory rate 30, heart rate 108, saturating 96% with2 L nasal cannula Chest x-ray showed bilateral perihilar and bibasilar airspace disease Patient on high-flow nasal cannula, continue DuoNeb q.4 Continue IV Solu-Medrol 40 mg q.12h IV Critical Care on board, we will follow the recommendations. Sepsis secondary to community acquired pneumonia-POA On presentation heart rate 108, respiratory rate 30, white count 19.7, lactic acid 3.1 Chest x-ray showed bilateral perihilar and bibasilar airspace disease CT chest showed multifocal pneumonia bilateral lungs, pulmonary vascular congestion, pulmonary edema Patient was started on norepinephrine drip on 06/16/2025 due to systolic blood pressure in 80s- weaned off today Continue on cefepime IV q.12h Continue doxycycline q.12h IV , metronidazole q.8 IV We will trend lactic acid Moderate Hyponatremia and hypochloremia POA On presentation sodium 122, chloride 93 Serum osmolality low at 274, urine osmolality normal, BNP 4530 Hyponatremia most likely due to fluid overload Discontinued IV Lasix 40 mg q8 Sodium today 143 Nephrology on board, we will follow the recommendations. Aortic insufficiency due to Multiple vegetations seen on the aortic valve leafelts. (2D echo 06/09/2025) 2D echocardiogram showed LVEF 50-55%, normal left ventricular diastolic function, normal right ventricular systolic function Multiple vegetations seen on aortic valve leaflets, difficulty to assess severity of aortic insufficiency, moderate mitral valve regurgitation BNP today 1280 continue cefepime Continue doxycycline q.12h IV, metronidazole q.8 IV Blood culture showed no growth so far We will Request consultation from Infectious Disease VICK could not be performed as patient could not tolerate Hepatic transaminitis An MRCP completed today showed cardiomegaly with bilateral pleural effusions, cardiogenic pulmonary edema, diffuse anasarca , fatty liver, and a moderately distended gallbladder with markedly diffuse wall thickening and sludge, findings most consistent with systemic venous congestion and congestive hepatobiliary changes in the setting of suspected heart failure GI on board for further evaluation. Acute multifactorial delirium Her mental status has improved significantly; although she remains intermittently confused A brain MRI was performed today and the report is pending. GI Prophylaxis with famotidine 20 mg IV daily DVT prophylaxis from [facility] Home Medications: Reported Medications Latanoprost (Latanoprost) 0.005 % Drops, 1 DROP OD HS, ML 0 Refills 06/09/25 Dorzolamide HCl/Timolol Maleat (Dorzolamide-Timolol Eye Drops) 22.3 Mg-6.8 Mg/Ml Drops, 1 DROP OP BID, #10 ML 0 Refills 06/09/25 Methimazole (Methimazole) 5 Mg Tablet, 0.5 TAB PO DAILY for 30 Days, #30 TAB 0 Refills 06/09/25 JULIANNE DAVISON MD Jun 21, 2025 17:01
--- NOTE | 2025-06-21 17:35 | NUR ---
DC PLAN MOT SIGNED BY . LET HOUSE KNOW PENDING SIGNATURE. LET NURSE KNOW OF ACCEPTANCE. EMS FAXED AND EMAILED. SPOKE TO SON LET HIM KNOW OF TRANSFER SAID OKAY. 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 LET NURSE KNOW OF REQUEST.
--- NOTE | 2025-06-21 18:27 | PN ---
Ms. Jang is a 69-year-old female with a past medical history of emphysema, atrial fibrillation, and hyperthyroidism who was admitted on June 08 and consulted for altered mental status approximately one week after admission. She initially presented with 3 weeks of generalized weakness and was diagnosed with acute congestive heart failure exacerbation and COPD exacerbation, for which she was treated with prednisone. During her hospitalization, she developed aortic insufficiency due to multiple vegetations and was diagnosed with endocarditis, requiring treatment with cefepime, vancomycin, and doxycycline. She also required norepinephrine drip support. The patient experienced significant altered mental status during her hospitalization, described as being "out of place," constantly screaming, and very confused. However, at the time of this consultation, her mental status had markedly improved - she was able to follow commands and accurately state her location. She denied having any headaches or neck stiffness when questioned directly. Platelet count is 17K. But there is no obvious bleeding. PHYSICAL EXAM EYES: Anicteric. Pupils equal and reactive. HENT: No oral thrush seen, moist Oral mucosa NECK: Supple, no JVD or thyromegaly. LUNGS: Good air entry. No rales, no rhonchi. CARDIOVASCULAR: S1, S2 regular. No murmur heard. ABDOMEN: Soft, non tender, bowel sounds present, no organomegaly CENTRAL NERVOUS SYSTEM: Awake, alert, oriented x 3. No focal deficits. SKIN: No rashes, no swelling. LYMPHATICS: No peripheral lymphadenopathy MUSCULOSKELETAL: No joint swelling, erythema or tenderness. EXTREMITIES: No cyanosis or clubbing BACK: No deformity, no pressure ulcer. GENITOURINARY: No dysuria or hematuria Assessment 1. Anemia. Hemoglobin level 8.2 g/deciliter 2. Thrombocytopenia. Suspicious for heparin-induced thrombocytopenia with the patient was started on Arixtra. 3. Leukocytosis. White blood count 19K 4. Change mental status 5. Chronic renal insufficiency 6. COPD 7. Endocarditis with aortic valve vegetation 8. Right occipital temporal embolic stroke Plan 1. Peripheral blood smear showed red blood cells to be normocytic normochromic. There was no fragment cell or schistocyte. There is no teardrop cell. There is no rouleaux phenomena. There is no pelger-Huet cell. White blood cell with no blasts. There is decreased number of the platelet. There is no clumping of the platelet. There is large platelet consistent with peripheral consumption. This patient received heparin and Lovenox in the past with the patient could have heparin-induced thrombocytopenia. This patient also could have DIC. With the patient also receiving fresh frozen plasma and fibrinogen level now become more than 100. 2. Please do not transfuse any platelet 3. Will ask for HIT antibodies 4. Continue on Arixtra 2.5 mg subcu daily 5. Will ask for CBC, fibrinogen level and Chem-7 to be done in the morning. This patient may be will need a cryoprecipitate transfusion 6. Continue care as per primary 7. This patient with poor prognosis. But the patient continued to be full code. 8. I have long discussion with the patient and family member regarding the plan of care. I answer all question and concern and I spent more than 35 minutes. There was 2 family members including her son. I did talk to them regarding the plan of care. It seems there is plan to discharge this patient to [facility] which is fine from my point of view. Vitals/Labs Vital Signs Date Time Temp Pulse Resp B/P (MAP) Pulse Ox O2 Delivery O2 Flow Rate FiO2 06/21/25 16:38 97.9 98 19 139/46 92 Nasal Cannula 2.0 06/21/25 15:48 21 Laboratory Tests 06/21/25 04:34 Medications Current Medications Methylprednisolone Sodium Succinate 125 mg ONCE ONCE IVP Last administered on 06/08/25at 17:19; Start 06/08/25 at 17:00; Stop 06/08/25 at 17:16; Status DC Albuterol 2 udvial ONCE ONCE IH Last administered on 06/08/25at 17:41; Start 06/08/25 at 17:00; Stop 06/08/25 at 17:16; Status DC Methylprednisolone Sodium Succinate 125 mg STK-MED ONCE .ROUTE; Start 06/08/25 at 17:12; Stop 06/08/25 at 17:12; Status DC Levofloxacin/ Dextrose 750 mg ONCE ONCE IV Last administered on 06/08/25at 19:26; Start 06/08/25 at 17:30; Stop 06/08/25 at 17:34; Status DC Sodium Chloride 1,000 ml @ 0 mls/hr ONCE ONCE IV; Start 06/08/25 at 18:00; Stop 06/08/25 at 17:59; Status DC Sodium Chloride 500 ml @ 0 mls/hr ONCE ONCE IV Last administered on 06/08/25at 18:05; Start 06/08/25 at 18:00; Stop 06/08/25 at 18:03; Status DC Furosemide 80 mg ONCE ONCE IVP; Start 06/08/25 at 18:00; Stop 06/08/25 at 18:01; Status Cancel Pantoprazole Sodium 40 mg ONCE ONCE PO; Start 06/08/25 at 18:30; Stop 06/08/25 at 18:31; Status DC Furosemide 40 mg STK-MED ONCE .ROUTE; Start 06/08/25 at 19:29; Stop 06/08/25 at 19:30; Status DC Furosemide 80 mg ONCE ONCE IVP; Start 06/08/25 at 20:00; Stop 06/08/25 at 20:01; Status DC Furosemide 80 mg ONCE ONCE IVP; Start 06/08/25 at 20:00; Stop 06/08/25 at 19:54; Status DC Morphine Sulfate 2 mg ONCE ONCE IVP; Start 06/08/25 at 20:00; Stop 06/08/25 at 20:05; Status DC Dexmedetomidine/ Sodium Chloride 400 mcg PROTOCOL IV Last administered on 06/11/25at 09:27; Start 06/08/25 at 20:00; Stop 06/11/25 at 17:00; Status DC Dexmedetomidine/ Sodium Chloride 400 mcg STK-MED ONCE IV; Start 06/08/25 at 20:02; Stop 06/08/25 at 20:02; Status DC Acetaminophen 650 mg Q6H PRN PO Last administered on 06/12/25at 20:47; Start 06/08/25 at 20:30; Stop 07/08/25 at 20:29 Acetaminophen 650 mg Q4H PRN PO Last administered on 06/12/25at 10:16; Start 06/08/25 at 20:30; Stop 07/08/25 at 20:29 Ondansetron HCl 4 mg Q6H PRN IV; Start 06/08/25 at 20:30; Stop 07/08/25 at 20:29 Albuterol 1 udvial [id number] IH Last administered on 06/21/25at 11:14; Start 06/08/25 at 22:00; Stop 06/21/25 at 12:45; Status DC Furosemide 40 mg BID IVP Last administered on 06/11/25at 09:32; Start 06/08/25 at 21:00; Stop 06/11/25 at 17:00; Status DC Famotidine 20 mg DAILY IV Last administered on 06/09/25at 08:39; Start 06/09/25 at 09:00; Stop 06/09/25 at 13:09; Status DC Levofloxacin/ Dextrose 100 ml @ 100 mls/hr Q24H IV; Start 06/09/25 at 20:00; Stop 06/08/25 at 22:40; Status DC Morphine Sulfate 1 mg ONCE ONCE IVP Last administered on 06/08/25at 20:36; Start 06/08/25 at 20:30; Stop 06/08/25 at 20:31; Status DC Furosemide 40 mg ONCE ONCE IV Last administered on 06/08/25at 21:18; Start 06/08/25 at 21:00; Stop 06/08/25 at 21:01; Status DC Doxycycline Hyclate 250 ml @ 125 mls/hr Q12H IV Last administered on 06/18/25at 11:06; Start 06/08/25 at 23:00; Stop 06/18/25 at 22:59; Status DC Piperacillin Sod/ Tazobactam Sod 3.375 gm Q8H IV Last administered on 06/10/25at 07:10; Start 06/08/25 at 23:00; Stop 06/10/25 at 09:08; Status DC Nicotine 21 mg DAILY TD Last administered on 06/21/25at 09:03; Start 06/08/25 at 23:00; Stop 07/08/25 at 22:59 Iohexol 50 ml STK-MED ONCE IV; Start 06/08/25 at 23:38; Stop 06/08/25 at 23:38; Status DC Norepinephrine 250 ml @ As Directed STK-MED ONCE IV; Start 06/09/25 at 00:30; Stop 06/09/25 at 00:31; Status DC Norepinephrine 250 ml @ 0 mls/hr PROTOCOL IV Last administered on 06/17/25at 05:41; Start 06/09/25 at 01:00; Stop 07/09/25 at 00:59 Pharmacy Profile Note 1 each ONCE MISC; Start 06/09/25 at 03:00; Stop 06/09/25 at 03:24; Status DC Heparin Sodium (Porcine) *calculation based on ACTUAL B... AD PRN IV; Start 06/09/25 at 04:00; Stop 06/15/25 at 14:01; Status DC Heparin Sodium/ Dextrose 250 ml @ 0 mls/hr Q6H IV Last administered on 06/15/25at 02:42; Start 06/09/25 at 04:00; Stop 06/15/25 at 13:58; Status DC Heparin Sodium (Porcine) 5,000 unit ONCE ONCE IV Last administered on 06/09/25at 05:30; Start 06/09/25 at 05:30; Stop 06/09/25 at 05:31; Status DC Sodium Bicarbonate 150 meq/Sodium Chloride 1,150 ml @ 100 mls/hr [id number] IVP; Start 06/09/25 at 12:00; Stop 06/09/25 at 12:29; Status DC Ziprasidone 10 mg Q6H ONCE IM Last administered on 06/09/25at 12:24; Start 06/09/25 at 12:21; Stop 06/09/25 at 12:23; Status DC Ziprasidone 20 mg STK-MED ONCE IM; Start 06/09/25 at 12:22; Stop 06/09/25 at 12:22; Status DC Sodium Bicarbonate 100 meq ONCE ONCE IV Last administered on 06/09/25at 13:39; Start 06/09/25 at 12:30; Stop 06/09/25 at 12:36; Status DC Oseltamivir Phosphate 75 mg BID PO Last administered on 06/10/25at 09:03; Start 06/09/25 at 21:00; Stop 06/10/25 at 09:08; Status DC Ziprasidone 10 mg Q6H PRN IM Last administered on 06/11/25at 17:28; Start 06/09/25 at 18:00; Stop 06/17/25 at 12:13; Status DC Dorzolamide/ Timolol 1 DROP BID OP Last administered on 06/21/25at 09:02; Start 06/09/25 at 21:00; Stop 07/09/25 at 20:59 Latanoprost 1 DROP HS OD Last administered on 06/20/25at 20:29; Start 06/09/25 at 21:00; Stop 07/09/25 at 20:59 Home Med (Methimazole 5MG TAB) - 0.5 TAB... DAILY PO Last administered on 06/21/25at 09:02; Start 06/10/25 at 09:00; Stop 07/10/25 at 08:59 Methylprednisolone Sodium Succinate 40 mg Q8H IVP Last administered on 06/12/25at 13:23; Start 06/09/25 at 13:30; Stop 06/12/25 at 14:11; Status DC Budesonide 0.5 mg BIDRESP IH Last administered on 06/21/25at 06:39; Start 06/09/25 at 18:00; Stop 07/09/25 at 17:59 Pantoprazole Sodium 40 mg DAILY IVP Last administered on 06/21/25at 09:00; Start 06/10/25 at 09:00; Stop 07/10/25 at 08:59 Potassium Chloride 100 ml @ 100 mls/hr AD PRN IV Last administered on 06/18/25at 16:46; Start 06/09/25 at 17:00; Stop 07/09/25 at 16:59 Potassium Chloride 20 meq AD PRN PO; Start 06/09/25 at 17:00; Stop 07/09/25 at 16:59 Potassium Chloride 20 meq AD PRN PO; Start 06/09/25 at 17:00; Stop 07/09/25 at 16:59 Potassium Chloride 100 ml @ 50 mls/hr AD PRN IV Last administered on 06/09/25at 21:18; Start 06/09/25 at 17:00; Stop 06/11/25 at 06:10; Status DC Magnesium Sulfate 50 ml @ 0 mls/hr PROTOCOL PRN IV Last administered on 06/12/25at 03:21; Start 06/09/25 at 17:00; Stop 07/09/25 at 16:59 Sodium Bicarbonate 50 meq ONCE ONCE IV Last administered on 06/10/25at 09:03; Start 06/10/25 at 09:00; Stop 06/10/25 at 09:01; Status DC Cefepime HCl 1 gm Q8H IVPB; Start 06/10/25 at 09:30; Stop 06/10/25 at 09:41; Status DC Vancomycin HCl 1 each AD IV; Start 06/10/25 at 09:30; Stop 06/11/25 at 11:15; Status DC Vancomycin HCl 250 ml @ 125 mls/hr ONCE ONCE IV Last administered on 06/10/25at 09:41; Start 06/10/25 at 10:00; Stop 06/10/25 at 11:59; Status DC Vancomycin HCl 250 ml @ 125 mls/hr Q24H IV Last administered on 06/11/25at 09:31; Start 06/11/25 at 10:00; Stop 06/11/25 at 11:15; Status DC Cefepime HCl 1 gm Q12H IVPB Last administered on 06/10/25at 14:23; Start 06/10/25 at 14:00; Stop 06/10/25 at 14:35; Status DC Olanzapine 5 mg BID PO Last administered on 06/16/25at 21:24; Start 06/10/25 at 21:00; Stop 06/17/25 at 12:13; Status DC Metronidazole/ Sodium Chloride 100 ml @ 100 mls/hr Q8H6 IVPB Last administered on 06/20/25at 05:13; Start 06/10/25 at 14:00; Stop 06/20/25 at 13:59; Status DC Midodrine 5 mg TID PO Last administered on 06/10/25at 20:08; Start 06/10/25 at 14:00; Stop 06/11/25 at 08:52; Status DC Midodrine 5 mg ONCE ONCE PO Last administered on 06/10/25at 12:56; Start 06/10/25 at 12:00; Stop 06/10/25 at 12:01; Status DC Olanzapine 5 mg ONCE ONCE PO Last administered on 06/10/25at 13:20; Start 06/10/25 at 13:00; Stop 06/10/25 at 13:01; Status DC Cefepime HCl 1 gm Q12H9 IVPB Last administered on 06/21/25at 09:05; Start 06/10/25 at 21:00; Stop 06/24/25 at 13:59 Phytonadione 10 mg Q24H SQ Last administered on 06/10/25at 15:11; Start 06/10/25 at 15:00; Stop 06/10/25 at 16:55; Status DC Phytonadione 10 mg DAILY SQ Last administered on 06/13/25at 09:24; Start 06/11/25 at 09:00; Stop 06/13/25 at 15:00; Status DC Lorazepam 1 mg ONCE ONCE IVP Last administered on 06/10/25at 22:30; Start 06/10/25 at 22:30; Stop 06/10/25 at 22:31; Status DC Midodrine 10 mg TID PO Last administered on 06/14/25at 21:14; Start 06/11/25 at 09:00; Stop 06/15/25 at 13:58; Status DC Pharmacy Profile Note 1 each ONCE MISC; Start 06/11/25 at 11:30; Stop 06/11/25 at 11:19; Status DC Linezolid 300 ml @ 150 mls/hr Q12H IV; Start 06/11/25 at 11:30; Stop 06/11/25 at 12:38; Status DC Linezolid 300 ml @ 150 mls/hr Q12H IV Last administered on 06/18/25at 02:07; Start 06/11/25 at 14:30; Stop 06/18/25 at 12:55; Status DC Furosemide 20 mg BID IVP Last administered on 06/11/25at 21:26; Start 06/11/25 at 21:00; Stop 06/12/25 at 06:54; Status DC Metoprolol Tartrate 5 mg STK-MED ONCE IV Last administered on 06/12/25at 03:22; Start 06/12/25 at 03:07; Stop 06/12/25 at 03:07; Status DC Metoprolol Tartrate 2.5 mg Q6H PRN IV Last administered on 06/19/25at 14:15; Start 06/12/25 at 03:30; Stop 07/12/25 at 03:29 Metoprolol Tartrate 5 mg ONCE ONCE IV Last administered on 06/12/25at 05:18; Start 06/12/25 at 05:00; Stop 06/12/25 at 05:01; Status DC Amiodarone HCL/ Dextrose 100 ml @ 600 mls/hr PROTOCOL IV Last administered on 06/12/25at 05:10; Start 06/12/25 at 05:00; Stop 06/12/25 at 06:53; Status DC Amiodarone HCL/ Dextrose 200 ml @ 33.333 mls/ hr PROTOCOL IV Last administered on 06/12/25at 05:11; Start 06/12/25 at 05:00; Stop 06/12/25 at 06:53; Status DC Amiodarone HCl 540 mg/Dextrose 300 ml @ 16.667 mls/ hr PROTOCOL IV Last administered on 06/12/25at 11:33; Start 06/12/25 at 10:00; Stop 06/13/25 at 03:59; Status DC Amiodarone HCL/ Dextrose 100 ml @ 0 mls/hr PROTOCOL IV; Start 06/12/25 at 07:00; Stop 06/12/25 at 07:01; Status DC Furosemide 20 mg BID IVP Last administered on 06/12/25at 08:57; Start 06/12/25 at 09:00; Stop 06/12/25 at 09:19; Status DC Furosemide 40 mg BID IVP Last administered on 06/14/25at 08:24; Start 06/12/25 at 21:00; Stop 06/14/25 at 13:19; Status DC Furosemide 20 mg ONCE ONCE IV Last administered on 06/12/25at 09:52; Start 06/12/25 at 09:30; Stop 06/12/25 at 09:31; Status DC Metoprolol Tartrate 25 mg BID PO Last administered on 06/16/25at 21:24; Start 06/12/25 at 21:00; Stop 06/17/25 at 12:12; Status DC Methylprednisolone Sodium Succinate 40 mg Q12H9 IVP Last administered on 06/21/25at 09:05; Start 06/12/25 at 21:00; Stop 07/09/25 at 13:29 Fluticasone Propionate 1 SPRAY DAILY EN Last administered on 06/21/25at 09:01; Start 06/12/25 at 15:00; Stop 07/12/25 at 14:59 Lactulose 20 gm ONCE ONCE PO Last administered on 06/13/25at 09:14; Start 06/13/25 at 07:30; Stop 06/13/25 at 07:31; Status DC Lactulose 20 gm BID PRN PO Last administered on 06/20/25at 16:32; Start 06/13/25 at 07:30; Stop 07/13/25 at 07:29 Sodium Bicarbonate 100 meq ONCE ONCE IV Last administered on 06/13/25at 09:11; Start 06/13/25 at 08:30; Stop 06/13/25 at 08:31; Status DC Amiodarone HCl 200 mg BID ONCE PO Last administered on 06/13/25at 09:13; Start 06/13/25 at 09:00; Stop 06/13/25 at 09:14; Status DC Amiodarone HCl 200 mg BID PO Last administered on 06/21/25at 09:01; Start 06/13/25 at 21:00; Stop 07/13/25 at 20:59 Sodium Bicarbonate 650 mg BID PO; Start 06/13/25 at 11:30; Stop 06/13/25 at 11:58; Status DC Sodium Bicarbonate 1,300 mg BID PO Last administered on 06/21/25at 09:05; Start 06/13/25 at 21:00; Stop 07/13/25 at 20:59 Furosemide 40 mg Q8H6 IVP Last administered on 06/17/25at 05:22; Start 06/14/25 at 14:00; Stop 06/17/25 at 12:12; Status DC Enoxaparin Sodium 1 unit Q24H SQ; Start 06/15/25 at 14:00; Stop 06/15/25 at 14:01; Status DC Enoxaparin Sodium 70 mg Q24H SQ Last administered on 06/16/25at 14:39; Start 06/15/25 at 14:30; Stop 06/17/25 at 12:11; Status DC Pharmacy Profile Note 1 each ONCE MISC; Start 06/16/25 at 11:00; Stop 06/16/25 at 11:08; Status DC Dexmedetomidine/ Sodium Chloride 200 mcg PROTOCOL IV Last administered on 06/21/25at 02:25; Start 06/16/25 at 11:30; Stop 07/16/25 at 11:29 Dexmedetomidine/ Sodium Chloride 400 mcg STK-MED ONCE IV Last administered on 06/16/25at 11:15; Start 06/16/25 at 11:07; Stop 06/16/25 at 11:07; Status DC Potassium Chloride 100 ml @ 100 mls/hr AD PRN IV Last administered on 06/19/25at 06:17; Start 06/16/25 at 12:00; Stop 07/16/25 at 11:59 Pharmacy Profile Note 1 each ONCE MISC; Start 06/16/25 at 17:00; Stop 06/16/25 at 17:10; Status DC Amino Acids/ Electrolytes/ Dextrose 1,008 ml @ 42 mls/hr ONCE ONCE IV Last administered on 06/16/25at 20:19; Start 06/16/25 at 20:00; Stop 06/17/25 at 16:09; Status DC Sevelamer HCl 400 mg TIDMEALS PO; Start 06/17/25 at 12:00; Stop 06/17/25 at 15:36; Status DC Sodium Bicarbonate 100 meq ONCE ONCE IV Last administered on 06/17/25at 12:58; Start 06/17/25 at 13:00; Stop 06/17/25 at 13:01; Status DC Insulin Human Regular INSULIN SLIDING SCAL... ACHS SQ Last administered on 06/18/25at 08:53; Start 06/17/25 at 16:30; Stop 06/18/25 at 10:03; Status DC Dextrose 50 ml AD PRN IV; Start 06/17/25 at 14:30; Stop 07/17/25 at 14:29 Glucagon 1 mg AD PRN IM; Start 06/17/25 at 14:30; Stop 07/17/25 at 14:29 Amino Acids/ Electrolytes/ Dextrose 1,008 ml @ 42 mls/hr ONCE ONCE IV Last administered on 06/17/25at 22:16; Start 06/17/25 at 16:30; Stop 06/18/25 at 11:23; Status DC Sodium Bicarbonate 100 meq ONCE ONCE IV Last administered on 06/17/25at 17:16; Start 06/17/25 at 17:00; Stop 06/17/25 at 17:01; Status DC Insulin Human Regular INSULIN SLIDING SCAL... ACHS SQ Last administered on 06/21/25at 11:24; Start 06/18/25 at 11:30; Stop 07/18/25 at 11:29 Amino Acids/ Electrolytes/ Dextrose 1,008 ml @ 42 mls/hr ONCE ONCE IV Last administered on 06/18/25at 20:33; Start 06/18/25 at 20:00; Stop 06/19/25 at 19:59; Status DC Fondaparinux 2.5 mg DAILY SQ Last administered on 06/21/25at 09:00; Start 06/19/25 at 09:30; Stop 07/19/25 at 09:29 Metoprolol Tartrate 25 mg BID PO Last administered on 06/21/25at 09:01; Start 06/19/25 at 21:00; Stop 07/19/25 at 20:59 Midazolam HCl 2 mg ONCE ONCE IVP; Start 06/19/25 at 12:00; Stop 06/19/25 at 12:01; Status DC Doxycycline Hyclate 250 ml @ 125 mls/hr Q12H IV Last administered on 06/21/25at 12:20; Start 06/19/25 at 13:00; Stop 06/29/25 at 12:59 Furosemide 40 mg Q12H IV; Start 06/20/25 at 13:30; Stop 06/20/25 at 13:45; Status DC Furosemide 40 mg ONCE ONCE IV Last administered on 06/20/25at 14:01; Start 06/20/25 at 14:00; Stop 06/20/25 at 14:01; Status DC Metronidazole/ Sodium Chloride 500 mg Q8H IV Last administered on 06/21/25at 15:40; Start 06/20/25 at 16:00; Stop 06/30/25 at 15:59 Amino Acids/ Electrolytes/ Dextrose 1,008 ml @ 42 mls/hr ONCE ONCE IV Last administered on 06/20/25at 20:26; Start 06/20/25 at 20:00; Stop 06/21/25 at 08:39; Status DC Amino Acids/ Electrolytes/ Dextrose 1,008 ml @ 42 mls/hr ONCE ONCE IV; Start 06/21/25 at 20:00; Stop 06/22/25 at 19:59 Albuterol 1 udvial [id number] ; Start 06/21/25 at 18:00; Stop 07/08/25 at 21:59 KRISTEN GO MD Jun 21, 2025 18:27
--- NOTE | 2025-06-21 18:53 | NUR ---
TRANSFERRED TO [facility] VIA EMS, OXYGEN, IVP PUMP WITH TPN.
--- NOTE | 2025-06-21 18:58 | PN ---
[facility] PROGRESS NOTE Date Patient Seen: Jun 21, 2025 Time of Visit: 13:49 Supervising Physician: AUGUSTINE BISHOP MD Primary Care Physician: [Dr. Yoel Pierson] Outpatient Specialists: [ ] Inpatient Consults: [[facility] team-ICU ] PROBLEM LIST: Acute hypoxic respiratory failure present on admission Paroxysmal atrial fibrillation Sepsis 2/2 community acquired pneumonia Aortic valve vegetations Infective endocarditis involving the aortic valve- culture negative. Thrombocytopenia Hepatic transaminitis NSTEMI-likely type II 2/2 demand ischemia from hypoxia vs. true cardiac etiology-POA- negative for chest pain or ST/T wave abnormality. HEART score 6 points=12-16.6% risk for MACE Hyperlactatemia-POA Acute multifactorial delirium Acute on chronic renal failure Acute COPD exacerbation Emphysema secondary to tobacco use disorder : 50 Pack year HX Pulmonary edema Bilateral pleural effusions Prior CVA Hyperthyroid disorder/Graves disease with right thyroid nodule INTERVAL HISTORY: Patient seen and examined, all labs and imaging reviewed. Patient oriented to se lf and place. Patient on supplemental O2, very weak , pale underlying hx of heavy smoker as per her son patient condition is poor, family is aware of patient condition and her son has decided for DNR status. Plan: she will be place on DNR status. Continue monitoring patient closely Closely monitor platelet count we will follow Manufacturing Engineering Technician recs. Patient started on Arixtra per Hematology recommendations. Continue Cefepime, Flagyl and Doxy per ID. Continue on supplemental O2, high-flow, BiPAP at night REVIEW OF SYSTEMS: More awake today, able to answer questions and oriented to self and place. No other major complaints reported by the patient herself and most of the information is obtained from nursing staff and medical records at bedside. PHYSICAL EXAM: Jaundice GENERAL: oriented to self and place HEENT: EOMI, Sclera non icteric, dry mucosa NECK: Supple, no JVD, trachea midline LUNGS: Grossly clear, decreased air entry without wheezing HEART: Regular rate and rhythm. Normal S1 and S2, without murmurs, tachycardia ABD: Abdomen soft, nontender. Bowel sounds present EXT: No clubbing cyanosis or edema NEURO: Awake alert to self Vital Signs (last 8hr) Date Time Temp Pulse Resp B/P (MAP) Pulse Ox O2 Delivery O2 Flow Rate FiO2 06/21/25 16:38 97.9 98 19 139/46 92 Nasal Cannula 2.0 06/21/25 15:48 94 Room Air* 0 21 06/21/25 15:38 98 21 124/69 93 Nasal Cannula 2.0 06/21/25 14:38 86 21 123/73 88 Room Air 06/21/25 13:38 85 19 133/39 96 Room Air 06/21/25 12:38 81 20 129/47 96 Room Air 06/21/25 11:38 87 15 118/50 97 Room Air 06/21/25 11:30 97 Room Air* 0 21 Bi-PAP+ 06/21/25 10:55 18 N/Cannula Oximizer Hi LPM 3.0 06/21/25 10:55 76 18 LABS: Hematology Labs: Test 06/21/25 04:34 Range/Units White Blood Count 17.9 H 4.8-10.8 K/uL Red Blood Count 3.24 L 4.00-5.50 MIL/uL Hemoglobin 7.7 L 12.0-16.0 g/dL Hematocrit 23.6 L 36-48 % Mean Corpuscular Volume 72.8 L 79-99 fL Mean Corpuscular Hemoglobin 23.8 L 27.0-33.0 pg Mean Corpuscular Hemoglobin Concent 32.6 32.0-36.0 g/dL Red Cell Distribution Width 20.0 H 11.0-15.5 % Platelet Count 15 #L 130-400 K/uL Mean Platelet Volume 7.5-10.5 fL Immature Granulocyte % (Auto) 1.0 0-1 % Neutrophils (%) (Auto) 94.7 H 40.0-77.0 % Lymphocytes (%) (Auto) 2.2 L 21.0-51.0 % Monocytes (%) (Auto) 2.0 L 3.0-13.0 % Eosinophils (%) (Auto) 0.0 0.0-8.0 % Basophils (%) (Auto) 0.1 0.0-5.0 % Neutrophils # (Auto) 16.9 H 1.8-7.7 K/uL Lymphocytes # (Auto) 0.4 L 1.0-4.8 K/uL Monocytes # (Auto) 0.4 0.1-1.0 K/uL Eosinophils # (Auto) 0.00 0.00-0.70 K/uL Basophils # (Auto) 0.02 0.00-0.20 K/uL Absolute Immature Granulocyte (auto 0.17 0-1 K/uL Nucleated Red Blood Cells 0.0 0.0-0.19 % Chemistry Labs: Test 06/21/25 17:21 06/21/25 04:34 06/20/25 06:35 06/20/25 05:00 Range/Units Whole Blood Glucose 163 H 70-110 MG/DL Sodium Level 149 H 136-145 mmol/L Potassium Level 3.5 3.5-5.1 mmol/L Chloride Level 110 101-111 mmol/L Carbon Dioxide Level 27 21-32 mmol/L Blood Urea Nitrogen 101 *H 7-18 mg/dL Creatinine 1.9 H 0.5-1.0 mg/dL Glomerular Filtration Rate Calc 28 >90 mL/min Random Glucose 209 H 70-105 mg/dL Total Calcium 7.9 L 8.5-10.1 mg/dL Total Bilirubin 12.9 #H 0.2-1.0 mg/dL Aspartate Amino Transf (AST/SGOT) 49 H 10-37 U/L Alanine Aminotransferase (ALT/SGPT) 105 H 12-78 U/L Alkaline Phosphatase 117 50-136 U/L Total Protein 4.2 L 6.0-8.3 g/dL Albumin 1.7 L 3.5-5.0 g/dL Thyroid Stimulating Hormone (TSH) 0.94 # 0.36-3.74 uIU/mL Thyroxine (T4) 9.5 4.7-13.3 ug/dL Phosphorus Level 4.6 2.5-4.9 mg/dL Magnesium Level 2.10 1.80-2.40 mg/dL Direct Bilirubin 8.1 *H 0.0-0.3 mg/dL Gamma Glutamyl Transpeptidase 167 H 5-85 U/L Lactate Dehydrogenase 420 H 81-234 U/L C-Reactive Protein, Quantitative 9.00 H 0.5-3.0 mg/L B-Type Natriuretic Peptide 1280 H 0-100 pg/mL Lactic Acid Level 5.2 H 0.8-2.5 mmol/L Procalcitonin 0.29 0.05-0.5 ng/mL Coagulation Labs: Test 06/21/25 04:34 Range/Units Prothrombin Time 16.0 H 9.6-11.6 SEC Prothromb Time International Ratio 1.58 H 0.85-1.15 Fibrinogen 144 L 180-350 mg/dL DIAGNOSTICS / RADIOLOGY RESULTS: [ ] PLAN NEURO: Minimize central acting medications as possible. Maintain fall precautions, adequate lighting during the day PULMONARY: Supplemental 02 as needed. Maintain aspiration precautions at all times CARDIOVASCULAR: Follow hemodynamics. Vital signs per facility protocol GI & NUTRITION: Continue with nutritional support. Continue stool softeners and laxatives as needed. KIDNEYS & ELECTROLYTES: Strict monitoring of intake, output and overall fluid balance. Avoid nephrotoxic medications to the extent possible. Medications to be dosed according to renal function. Monitor electrolytes and replace as needed ENDOCRINE: Maintain blood glucose between 100-180 at all times. Hypoglycemia protocol in place INFECTIOUS DISEASE: Trend temperature, WBC and procalcitonin level Follow cultures, deescalate antibiotics as soon as possible. Panculture if new onset fever ONCOLOGY/HEMATOLOGY/COAGULATION: Monitor for s/s of bleeding Monitor hemoglobin, coagulation studies as needed SKIN: Pressure ulcer prevention per facility protocol Specialty mattress ORTHO/REHAB: Continue PT/OT Prophylaxis: Continue GI and DVT prophylaxis Code Status: Full Resuscitation Disposition: TBD Other: Total patient care time 35 minutes excluding all procedures. ATTESTATION BY PHYSICIAN Documentation assistance provided by a scribe, information recorded by the scribe was done at my direction and has been reviewed and validated by me." AUGUSTINE BISHOP MD I personally scribed for AUGUSTINE BISHOP MD ([email or web address]) on 06/21/25 at 18:58. Electronically submitted by La Bermudez ([id number]). AUGUSTINE BISHOP MD Jun 21, 2025 18:58
--- NOTE | 2025-06-21 19:34 | PN ---
GASTROENTEROLOGY PROGRESS NOTE Date of Visit: Jun 21, 2025 Time of Visit: 19:33 Events / Notes: [ ] Review of Systems: CONSTITUTIONAL: No malaise or change in sensation of wellbeing. ENMT: No rhinorrhea, otorrhea, sinus pain, ear ache. CARDIOVASCULAR: No angina, palpitations, orthopnea or paroxysmal dyspnea. RESPIRATORY: No SOB. GASTROINTESTINAL: No abdominal pain, nausea, vomiting, diarrhea, hematemesis, melena or change in the patient's habitual bowel movements consistency/number. GENITOURINARY: No dysuria, hematuria or change in bladder continence. MUSCULOSKELETAL: No new muscle pain or decrease in muscular strength. No new joint swelling, redness or tenderness. SKIN: No new rash. Physical Exam: GEN: Awake, alert, oriented in person, time and place, and in no acute distress. HEENT: No sinus tenderness. Tympanic membranes were not examined. No rhinorrhea. Oral pharyngeal mucosa is pink, moist and within normal limits. Neck is supple with no cervical lymphadenopathy, thyromegaly or JVD. CHEST: Inspection, palpation and percussion of the chest were unremarkable. Lung auscultation revealed normal breath sounds bilaterally. CARDIAC: PMI is within normal limits. Heart sounds are regular. Normal S1, S2. No gallop or murmur. ABD: Soft, non-tender and not distended. No peritoneal signs on palpation. No organomegaly. Normal bowel sounds. EXT: No cyanosis or clubbing. No edema. SKIN: Intact. No rashes. JOINTS: No evidence of synovitis or acute arthritis. NEURO: Alert and oriented to name, place and person. Cranial nerve examination is unremarkable. No focal motor deficits. Normal speech. Gait is normal. Strength is normal. Vital Signs (last 8hr) Date Time Temp Pulse Resp B/P (MAP) Pulse Ox O2 Delivery O2 Flow Rate FiO2 06/21/25 16:38 97.9 98 19 139/46 92 Nasal Cannula 2.0 06/21/25 15:48 94 Room Air* 0 21 06/21/25 15:38 98 21 124/69 93 Nasal Cannula 2.0 06/21/25 14:38 86 21 123/73 88 Room Air 06/21/25 13:38 85 19 133/39 96 Room Air 06/21/25 12:38 81 20 129/47 96 Room Air 06/21/25 11:38 87 15 118/50 97 Room Air Laboratory: [ ] Laboratory: Test 06/21/25 17:21 06/21/25 04:34 06/20/25 06:35 06/20/25 05:00 Range/Units Whole Blood Glucose 163 H 70-110 MG/DL White Blood Count 17.9 H 4.8-10.8 K/uL Red Blood Count 3.24 L 4.00-5.50 MIL/uL Hemoglobin 7.7 L 12.0-16.0 g/dL Hematocrit 23.6 L 36-48 % Mean Corpuscular Volume 72.8 L 79-99 fL Mean Corpuscular Hemoglobin 23.8 L 27.0-33.0 pg Mean Corpuscular Hemoglobin Concent 32.6 32.0-36.0 g/dL Red Cell Distribution Width 20.0 H 11.0-15.5 % Platelet Count 15 #L 130-400 K/uL Mean Platelet Volume 7.5-10.5 fL Immature Granulocyte % (Auto) 1.0 0-1 % Neutrophils (%) (Auto) 94.7 H 40.0-77.0 % Lymphocytes (%) (Auto) 2.2 L 21.0-51.0 % Monocytes (%) (Auto) 2.0 L 3.0-13.0 % Eosinophils (%) (Auto) 0.0 0.0-8.0 % Basophils (%) (Auto) 0.1 0.0-5.0 % Neutrophils # (Auto) 16.9 H 1.8-7.7 K/uL Lymphocytes # (Auto) 0.4 L 1.0-4.8 K/uL Monocytes # (Auto) 0.4 0.1-1.0 K/uL Eosinophils # (Auto) 0.00 0.00-0.70 K/uL Basophils # (Auto) 0.02 0.00-0.20 K/uL Absolute Immature Granulocyte (auto 0.17 0-1 K/uL Nucleated Red Blood Cells 0.0 0.0-0.19 % Prothrombin Time 16.0 H 9.6-11.6 SEC Prothromb Time International Ratio 1.58 H 0.85-1.15 Fibrinogen 144 L 180-350 mg/dL Sodium Level 149 H 136-145 mmol/L Potassium Level 3.5 3.5-5.1 mmol/L Chloride Level 110 101-111 mmol/L Carbon Dioxide Level 27 21-32 mmol/L Blood Urea Nitrogen 101 *H 7-18 mg/dL Creatinine 1.9 H 0.5-1.0 mg/dL Glomerular Filtration Rate Calc 28 >90 mL/min Random Glucose 209 H 70-105 mg/dL Total Calcium 7.9 L 8.5-10.1 mg/dL Total Bilirubin 12.9 #H 0.2-1.0 mg/dL Aspartate Amino Transf (AST/SGOT) 49 H 10-37 U/L Alanine Aminotransferase (ALT/SGPT) 105 H 12-78 U/L Alkaline Phosphatase 117 50-136 U/L Total Protein 4.2 L 6.0-8.3 g/dL Albumin 1.7 L 3.5-5.0 g/dL Thyroid Stimulating Hormone (TSH) 0.94 # 0.36-3.74 uIU/mL Thyroxine (T4) 9.5 4.7-13.3 ug/dL Phosphorus Level 4.6 2.5-4.9 mg/dL Magnesium Level 2.10 1.80-2.40 mg/dL Direct Bilirubin 8.1 *H 0.0-0.3 mg/dL Gamma Glutamyl Transpeptidase 167 H 5-85 U/L Lactate Dehydrogenase 420 H 81-234 U/L C-Reactive Protein, Quantitative 9.00 H 0.5-3.0 mg/L B-Type Natriuretic Peptide 1280 H 0-100 pg/mL Lactic Acid Level 5.2 H 0.8-2.5 mmol/L Procalcitonin 0.29 0.05-0.5 ng/mL Current Medications Medications (Trade) Dose Ordered Sig/Rossy Route PRN Reason Start Time Stop Time Status Last Admin Dose Admin Acetaminophen (TYLenol 325MG TAB) 650 mg Q4H PRN PO MILD PAIN (1-3) 06/08/25 20:30 07/08/25 20:29 06/12/25 10:16 650 MG Acetaminophen (TYLenol 325MG TAB) 650 mg Q6H PRN PO TEMPERATURE GREATER THAN 101.5 06/08/25 20:30 07/08/25 20:29 06/12/25 20:47 650 MG Albuterol (DUOneb) 1 udvial [id number] IH 06/08/25 22:00 06/21/25 12:45 DC 06/21/25 11:14 1 UDVIAL Albuterol (DUOneb) 1 udvial [id number] 06/21/25 18:00 07/08/25 21:59 Amiodarone HCl (pacERONE 200MG) 200 mg BID PO 06/13/25 21:00 07/13/25 20:59 06/21/25 09:01 200 MG Amiodarone HCl 540 mg/Dextrose 300 ml @ 16.667 mls/ hr PROTOCOL IV 06/12/25 10:00 06/13/25 03:59 DC 06/12/25 11:33 16.667 MLS/HR Amiodarone HCL/ Dextrose 100 ml @ 600 mls/hr PROTOCOL IV 06/12/25 05:00 06/12/25 06:53 DC 06/12/25 05:10 600 MLS/HR Amiodarone HCL/ Dextrose 100 ml @ 0 mls/hr PROTOCOL IV 06/12/25 07:00 06/12/25 07:01 DC Amiodarone HCL/ Dextrose 200 ml @ 33.333 mls/ hr PROTOCOL IV 06/12/25 05:00 06/12/25 06:53 DC 06/12/25 05:11 33.333 MLS/HR Budesonide (Pulmicort 0.5 Mg/2ml) 0.5 mg BIDRESP 06/09/25 18:00 07/09/25 17:59 06/21/25 06:39 0.5 MG Cefepime HCl (MAXipime 1 GM vial) 1 gm Q12H IVPB 06/10/25 14:00 06/10/25 14:35 DC 06/10/25 14:23 1 GM Cefepime HCl (MAXipime 1 GM vial) 1 gm Q12H9 IVPB 06/10/25 21:00 06/24/25 13:59 06/21/25 09:05 1 GM Cefepime HCl (MAXipime 1 GM vial) 1 gm Q8H IVPB 06/10/25 09:30 06/10/25 09:41 DC Dexmedetomidine/ Sodium Chloride (PRECEdex 200MCG/ 50ML-NS) 200 mcg PROTOCOL IV 06/16/25 11:30 07/16/25 11:29 06/21/25 02:25 200 MCG Dexmedetomidine/ Sodium Chloride (PRECEdex 400MCG/ 100ML-NS) 400 mcg PROTOCOL IV 06/08/25 20:00 06/11/25 17:00 DC 06/11/25 09:27 400 MCG Dextrose (D50w) 50 ml AD PRN IV HYPOGLYCEMIA PROTOCOL 06/17/25 14:30 07/17/25 14:29 Dorzolamide/ Timolol (Cosopt Eye Drops) 1 DROP BID OP 06/09/25 21:00 07/09/25 20:59 06/21/25 09:02 1 ML Doxycycline Hyclate 250 ml @ 125 mls/hr Q12H IV 06/08/25 23:00 06/18/25 22:59 DC 06/18/25 11:06 125 MLS/HR Doxycycline Hyclate 250 ml @ 125 mls/hr Q12H IV 06/19/25 13:00 06/29/25 12:59 06/21/25 12:20 125 MLS/HR Enoxaparin Sodium (Lovenox (Pharmacy To Dose)) 1 unit Q24H SQ 06/15/25 14:00 06/15/25 14:01 DC Enoxaparin Sodium (Lovenox 80mg) 70 mg Q24H SQ 06/15/25 14:30 06/17/25 12:11 DC 06/16/25 14:39 70 MG Famotidine (Pepcid 20mg Vial) 20 mg DAILY IV 06/09/25 09:00 06/09/25 13:09 DC 06/09/25 08:39 20 MG Fluticasone Propionate (FLOnase 50 mcg/ spray 16g bottle) 1 SPRAY DAILY EN 06/12/25 15:00 07/12/25 14:59 06/21/25 09:01 1 SPRAYS Fondaparinux (Arixtra) 2.5 mg DAILY SQ 06/19/25 09:30 07/19/25 09:29 06/21/25 09:00 2.5 MG Furosemide (LASix 20MG VIAL) 20 mg BID IVP 06/12/25 09:00 06/12/25 09:19 DC 06/12/25 08:57 20 MG Furosemide (LASix 40MG VIAL) 20 mg BID IVP 06/11/25 21:00 06/12/25 06:54 DC 06/11/25 21:26 20 MG Furosemide (LASix 40MG VIAL) 40 mg BID IVP 06/08/25 21:00 06/11/25 17:00 DC 06/11/25 09:32 40 MG Furosemide (LASix 40MG VIAL) 40 mg BID IVP 06/12/25 21:00 06/14/25 13:19 DC 06/14/25 08:24 40 MG Furosemide (LASix 40MG VIAL) 40 mg Q12H IV 06/20/25 13:30 06/20/25 13:45 DC Furosemide (LASix 40MG VIAL) 40 mg Q8H6 IVP 06/14/25 14:00 06/17/25 12:12 DC 06/17/25 05:22 40 MG Glucagon (Glucagon 1mg Kit) 1 mg AD PRN IM HYPOGLYCEMIA PROTOCOL 06/17/25 14:30 07/17/25 14:29 Heparin Sodium (Porcine) (HEParin 5,000 UNIT VIAL) *calculation based on ACTUAL B... AD PRN IV HEPARIN PROTOCOL 06/09/25 04:00 06/15/25 14:01 DC Heparin Sodium/ Dextrose 250 ml @ 0 mls/hr Q6H IV 06/09/25 04:00 06/15/25 13:58 DC 06/15/25 02:42 4.7 MLS/HR Home Med (Home Medication) (Methimazole 5MG TAB) - 0.5 TAB... DAILY PO 06/10/25 09:00 07/10/25 08:59 06/21/25 09:02 0.5 EACH Insulin Human Regular (humuLIN R 100 UNIT/ML 3ML) INSULIN SLIDING SCAL... ACHS SQ 06/17/25 16:30 06/18/25 10:03 DC 06/18/25 08:53 6 UNIT Insulin Human Regular (humuLIN R 100 UNIT/ML 3ML) INSULIN SLIDING SCAL... ACHS SQ 06/18/25 11:30 07/18/25 11:29 06/21/25 11:24 4 UNIT Lactulose (Constulose 20gm/ 30ml Udcup) 20 gm BID PRN PO CONSTIPATION 06/13/25 07:30 07/13/25 07:29 06/20/25 16:32 20 GM Latanoprost (Xalatan) 1 DROP HS OD 06/09/25 21:00 07/09/25 20:59 06/20/25 20:29 1 DROP Levofloxacin/ Dextrose 100 ml @ 100 mls/hr Q24H IV 06/09/25 20:00 06/08/25 22:40 DC Linezolid 300 ml @ 150 mls/hr Q12H IV 06/11/25 11:30 06/11/25 12:38 DC Linezolid 300 ml @ 150 mls/hr Q12H IV 06/11/25 14:30 06/18/25 12:55 DC 06/18/25 02:07 150 MLS/HR Magnesium Sulfate 50 ml @ 0 mls/hr PROTOCOL PRN IV MAGNESIUM PROTOCOL 06/09/25 17:00 07/09/25 16:59 06/12/25 03:21 25 MLS/HR Methylprednisolone Sodium Succinate (Solu-medROL 40MG) 40 mg Q12H9 IVP 06/12/25 21:00 07/09/25 13:29 06/21/25 09:05 40 MG Methylprednisolone Sodium Succinate (Solu-medROL 40MG) 40 mg Q8H IVP 06/09/25 13:30 06/12/25 14:11 DC 06/12/25 13:23 40 MG Metoprolol Tartrate (loprESSOR) 2.5 mg Q6H PRN IV heart rate greater than 110 06/12/25 03:30 07/12/25 03:29 06/19/25 14:15 2.5 MG Metoprolol Tartrate (loprESSOR) 25 mg BID PO 06/12/25 21:00 06/17/25 12:12 DC 06/16/25 21:24 25 MG Metoprolol Tartrate (loprESSOR) 25 mg BID PO 06/19/25 21:00 07/19/25 20:59 06/21/25 09:01 25 MG Metronidazole/ Sodium Chloride 100 ml @ 100 mls/hr Q8H6 IVPB 06/10/25 14:00 06/20/25 13:59 DC 06/20/25 05:13 100 MLS/HR Metronidazole/ Sodium Chloride (flaGYL) 500 mg Q8H IV 06/20/25 16:00 06/30/25 15:59 06/21/25 15:40 500 MG Midodrine (PROAMatine 5 MG TABLET) 5 mg TID PO 06/10/25 14:00 06/11/25 08:52 DC 06/10/25 20:08 5 MG Midodrine (PROAMatine 5 MG TABLET) 10 mg TID PO 06/11/25 09:00 06/15/25 13:58 DC 06/14/25 21:14 10 MG Nicotine (Nicoderm) 21 mg DAILY TD 06/08/25 23:00 07/08/25 22:59 06/21/25 09:03 21 MG Norepinephrine 250 ml @ 0 mls/hr PROTOCOL IV 06/09/25 01:00 07/09/25 00:59 06/17/25 05:41 27.7 MLS/HR Olanzapine (ZyPREXA 5 mg tab) 5 mg BID PO 06/10/25 21:00 06/17/25 12:13 DC 06/16/25 21:24 5 MG Ondansetron HCl (zoFRAN 4MG INJ) 4 mg Q6H PRN IV NAUSEA/VOMITING 06/08/25 20:30 07/08/25 20:29 Oseltamivir Phosphate (Tamiflu) 75 mg BID PO 06/09/25 21:00 06/10/25 09:08 DC 06/10/25 09:03 75 MG Pantoprazole Sodium (PROTonix 40MG INJ) 40 mg DAILY IVP 06/10/25 09:00 07/10/25 08:59 06/21/25 09:00 40 MG Pharmacy Profile Note (Pharmacy Communication) 1 each ONCE MISC 06/09/25 03:00 06/09/25 03:24 DC Pharmacy Profile Note (Pharmacy Communication) 1 each ONCE MISC 06/11/25 11:30 06/11/25 11:19 DC Pharmacy Profile Note (Pharmacy Communication) 1 each ONCE MISC 06/16/25 11:00 06/16/25 11:08 DC Pharmacy Profile Note (Pharmacy Communication) 1 each ONCE MISC 06/16/25 17:00 06/16/25 17:10 DC Phytonadione (Vitamin K 10mg/ 1ml Adult Vial) 10 mg DAILY SQ 06/11/25 09:00 06/13/25 15:00 DC 06/13/25 09:24 10 MG Phytonadione (Vitamin K 10mg/ 1ml Adult Vial) 10 mg Q24H SQ 06/10/25 15:00 06/10/25 16:55 DC 06/10/25 15:11 10 MG Piperacillin Sod/ Tazobactam Sod (Zosyn 3.375gm+NS 50ml) 3.375 gm Q8H IV 06/08/25 23:00 06/10/25 09:08 DC 06/10/25 07:10 3.375 GM Potassium Chloride 100 ml @ 50 mls/hr AD PRN IV POTASSIUM PROTOCOL 06/09/25 17:00 06/11/25 06:10 DC 06/09/25 21:18 50 MLS/HR Potassium Chloride 100 ml @ 100 mls/hr AD PRN IV POTASSIUM PROTOCOL 06/09/25 17:00 07/09/25 16:59 06/18/25 16:46 100 MLS/HR Potassium Chloride 100 ml @ 100 mls/hr AD PRN IV POTASSIUM PROTOCOL 06/16/25 12:00 07/16/25 11:59 06/19/25 06:17 100 MLS/HR Potassium Chloride (K-Dur/Klor-Con 20meq) 20 meq AD PRN PO POTASSIUM PROTOCOL 06/09/25 17:00 07/09/25 16:59 Potassium Chloride (KCl 10% Elixir 20meq/15ml) 20 meq AD PRN PO POTASSIUM PROTOCOL 06/09/25 17:00 07/09/25 16:59 Sevelamer HCl (RENAgel 800 MG TAB) 400 mg TIDMEALS PO 06/17/25 12:00 06/17/25 15:36 DC Sodium Bicarbonate 150 meq/Sodium Chloride 1,150 ml @ 100 mls/hr [id number] IVP 06/09/25 12:00 06/09/25 12:29 DC Sodium Bicarbonate (Sodium Bicarbonate) 650 mg BID PO 06/13/25 11:30 06/13/25 11:58 DC Sodium Bicarbonate (Sodium Bicarbonate) 1,300 mg BID PO 06/13/25 21:00 07/13/25 20:59 06/21/25 09:05 1,300 MG Vancomycin HCl 250 ml @ 125 mls/hr Q24H IV 06/11/25 10:00 06/11/25 11:15 DC 06/11/25 09:31 125 MLS/HR Vancomycin HCl (Vancomycin Protocol) 1 each AD IV 06/10/25 09:30 06/11/25 11:15 DC Ziprasidone (Geodon) 10 mg Q6H PRN IM AGITATION/PSYCHOSIS 06/09/25 18:00 06/17/25 12:13 DC 06/11/25 17:28 10 MG Diagnostics / Radiology: [COPY/PASTE HERE IF NO REPORTS PLEASE DELETE SECTION] Assessment: Abnormal LFTs Coagulopathy Thrombocytopenia Plan: MRCP once clinically able Trend LFTs LAW SHANNON [employer]FF[employer] SAFETY ADMINISTRATOR Jun 21, 2025 19:34
[2025-06-21] MEDS ORDERED: CLINIMIX-E 5%AA /D15%W 2000ML 2,000 ML IV ONE (20:00)
--- NOTE | 2025-06-22 04:59 | PN ---
NEPHROLOGY NOTE DATE OF SERVICE: 06/21/2025 SUBJECTIVE: This patient is seen in ICU. The patient is critically ill. The patient has multiple medical problems, renal failure, anemia. The patient is being considered for transfer to [facility]. The patient has underlying abnormal LFTs, coagulopathy, thrombocytopenia, multiple other comorbidities. The patient has hypoxic respiratory failure, paroxysmal atrial fibrillation, sepsis, pneumonia, aortic valve vegetation, infective endocarditis, apparently culture negative, previous CVA and the patient has Graves' disease with right thyroid nodule. Being monitored on all these issues. The patient's condition remains guarded. The patient has DNR status. REVIEW OF SYSTEMS: No fevers, chills, or rigors. HEENT: No headache. No oral ulcers, sore throat or difficulty swallowing. No new vision complaints. RESPIRATORY: Has no cough, expectoration, hemoptysis or pleuritic pain. CARDIOVASCULAR: No orthopnea or PND. Has shortness of breath. GASTROINTESTINAL: Negative for nausea, vomiting, or diarrhea reported. GENITOURINARY: Negative for dysuria or hematuria. DERMATOLOGICAL: No rashes, pruritus, or skin lesion. ENDOCRINE: No polyuria, polydipsia or polyphagia. PSYCHIATRIC REVIEW: Negative for anxiety, depression, hallucinations. Other systemic review is unchanged. PHYSICAL EXAMINATION: GENERAL: Pale, no other distress or deformities. Lying in bed. VITAL SIGNS: Blood pressure is 139/46. Pulse is 98. Respiratory rate is 19. HEENT: Head is atraumatic, normocephalic. Pupils are round and reactive to light. Sclerae are icteric. Conjunctivae not pale. Oral mucosa is not dry. NECK: Without masses or bruits. Thyroid is palpable. Neck has no bruits. CHEST: Shows equal thoracic percussion, note being resonant in all areas. CARDIAC: Regular rhythm. No rub. No S3, S4. No parasternal heaves. ABDOMEN: No guarding, tenderness, bowel sounds heard. EXTREMITIES: With no edema. No cyanosis or clubbing. LABORATORY DATA: Have been reviewed. The patient has white cell count still elevated up to 17.9, hemoglobin 7.7, creatinine 1.9, elevated BUN of 101, elevated sodium of 149, and jaundice is present. Bilirubin is elevated up to 12.9. IMAGING STUDIES: Personally reviewed. Old records reviewed. Cultures have been negative. Vegetation is present. Urine culture was though positive. Old records have been reviewed and imaging studies are personally reviewed. Previous studies were personally reviewed. PROBLEMS: Renal failure. Hypernatremia. Patient has jaundice. Culture-negative endocarditis. Acute hypoxic respiratory failure. The patient has anemia. Thrombocytopenia. Mental status changes. Chronic obstructive pulmonary disease. Embolic stroke. Multiple other comorbidities including: Previous myocardial infarction. Sepsis. Paroxysmal atrial fibrillation. Cerebrovascular accident. Hyperthyroidism. Other comorbidities. The patient is critically ill. PLAN: The patient has been made DNR. Continued monitoring of renal function, electrolyte. Avoid hypotension. Lab, x-rays, imaging studies personally reviewed. Follow up on urine output and weights. IV Dilaudid 0.2-0.5 q.6 can be used for pain. Continues on antibiotics. Oxygen inhalation. Follow up with GI. Please avoid contrast and nonsteroidal drugs. I have reviewed the external records, old record. Discussed with the team physician. The patient is maintained in ICU. Condition is critical. Guarded. Seen several times today. Thank you for this patient. TID: [id number] RECEIPT: [id number]
[2025-06-22 08:13] LABS: Q FEVER IGG PHASE I Negative (Negative); Q FEVER IGG PHASE II Negative (Negative); Q FEVER IGM PHASE I Negative (Negative); Q FEVER IGM PHASE II Negative (Negative)
== END 2025-06-21 19:15 | DRG 871 ==
LOC: EDH 16:42 → EDHIP 20:08 → 2CH 06-09 03:19
PROVIDERS: ADMIT Hospitalist; ATTEND Hospitalist
PROC: 5A09357 Assistance with Respiratory Ventilation, Less than 24 Consecutive Hours, Continuous Positive Airway Pressure (ICD-10-PCS; principal; 2025-06-08)
PROC: 5A09357 Assistance with Respiratory Ventilation, Less than 24 Consecutive Hours, Continuous Positive Airway Pressure (ICD-10-PCS; 2025-06-09)
PROC: 02HV33Z Insertion of Infusion Device into Superior Vena Cava, Percutaneous Approach (ICD-10-PCS; 2025-06-09)
PROC: 5A09357 Assistance with Respiratory Ventilation, Less than 24 Consecutive Hours, Continuous Positive Airway Pressure (ICD-10-PCS; 2025-06-10)
PROC: 5A09357 Assistance with Respiratory Ventilation, Less than 24 Consecutive Hours, Continuous Positive Airway Pressure (ICD-10-PCS; 2025-06-11)
PROC: 5A09357 Assistance with Respiratory Ventilation, Less than 24 Consecutive Hours, Continuous Positive Airway Pressure (ICD-10-PCS; 2025-06-13)
PROC: 5A0935A Assistance with Respiratory Ventilation, Less than 24 Consecutive Hours, High Flow/Velocity Cannula (ICD-10-PCS; 2025-06-15)
PROC: 5A09357 Assistance with Respiratory Ventilation, Less than 24 Consecutive Hours, Continuous Positive Airway Pressure (ICD-10-PCS; 2025-06-16)
PROC: 5A0935A Assistance with Respiratory Ventilation, Less than 24 Consecutive Hours, High Flow/Velocity Cannula (ICD-10-PCS; 2025-06-16)
PROC: 5A09357 Assistance with Respiratory Ventilation, Less than 24 Consecutive Hours, Continuous Positive Airway Pressure (ICD-10-PCS; 2025-06-17)
PROC: 5A09357 Assistance with Respiratory Ventilation, Less than 24 Consecutive Hours, Continuous Positive Airway Pressure (ICD-10-PCS; 2025-06-18)
PROC: 5A0935A Assistance with Respiratory Ventilation, Less than 24 Consecutive Hours, High Flow/Velocity Cannula (ICD-10-PCS; 2025-06-18)
PROC: 30233N1 Transfusion of Nonautologous Red Blood Cells into Peripheral Vein, Percutaneous Approach (ICD-10-PCS; 2025-06-18)
PROC: 5A09357 Assistance with Respiratory Ventilation, Less than 24 Consecutive Hours, Continuous Positive Airway Pressure (ICD-10-PCS; 2025-06-19)
PROC: 5A0935A Assistance with Respiratory Ventilation, Less than 24 Consecutive Hours, High Flow/Velocity Cannula (ICD-10-PCS; 2025-06-19)
PROC: 5A0935A Assistance with Respiratory Ventilation, Less than 24 Consecutive Hours, High Flow/Velocity Cannula (ICD-10-PCS; 2025-06-20)
DX: A41.9 Sepsis, unspecified organism (principal); I33.0 Acute and subacute infective endocarditis; J18.9 Pneumonia, unspecified organism; J96.01 Acute respiratory failure with hypoxia; K72.00 Acute and subacute hepatic failure without coma; G93.49 Other encephalopathy; I31.39 Other pericardial effusion (noninflammatory); E87.4 Mixed disorder of acid-base balance; G93.89 Other specified disorders of brain; J44.0 Chronic obstructive pulmonary disease with (acute) lower respiratory infection; N17.9 Acute kidney failure, unspecified; B96.89 Other specified bacterial agents as the cause of diseases classified elsewhere; I50.1 Left ventricular failure, unspecified; E05.00 Thyrotoxicosis with diffuse goiter without thyrotoxic crisis or storm; E03.9 Hypothyroidism, unspecified; D63.1 Anemia in chronic kidney disease; N18.9 Chronic kidney disease, unspecified; K76.0 Fatty (change of) liver, not elsewhere classified; E87.0 Hyperosmolality and hypernatremia; E87.1 Hypo-osmolality and hyponatremia; J44.1 Chronic obstructive pulmonary disease with (acute) exacerbation; J98.11 Atelectasis; J43.9 Emphysema, unspecified; F17.210 Nicotine dependence, cigarettes, uncomplicated; I25.2 Old myocardial infarction; I48.0 Paroxysmal atrial fibrillation; G62.9 Polyneuropathy, unspecified; Z66 Do not resuscitate; E87.8 Other disorders of electrolyte and fluid balance, not elsewhere classified; I35.1 Nonrheumatic aortic (valve) insufficiency; I37.1 Nonrheumatic pulmonary valve insufficiency; I34.0 Nonrheumatic mitral (valve) insufficiency; K82.8 Other specified diseases of gallbladder; Z79.899 Other long term (current) drug therapy; Z86.73 Personal history of transient ischemic attack (TIA), and cerebral infarction without residual deficits; Z86.79 Personal history of other diseases of the circulatory system; Z87.81 Personal history of (healed) traumatic fracture; Z74.01 Bed confinement status; Z91.199 Patient's noncompliance with other medical treatment and regimen due to unspecified reason
CPT/HCPCS: 36415; 36430; 36569; 36600; 70450; 70551; 71045; 71250; 71270; 74181; 76700; 76770; 80048; 80051; 80053; 80061; 80074; 80305; 81001; 82010; 82140; 82247; 82248; 82306; 82435; 82533; 82570; 82803; 82947; 82948; 82977; 83036; 83605; 83615; 83735; 83880; 83930; 83935; 84100; 84132; 84145; 84156; 84295; 84300; 84436; 84443; 84484; 84550; 85018; 85025; 85027; 85378; 85384; 85610; 85651; 85730; 86022; 86140; 86611; 86622; 86632; 86638; 86738; 86850; 86900; 86901; 86923; 87040; 87086; 87426; 87449; 87804; 92526; 92610; 93005; 93306; 93308; 93356; 94640; 94660; 94664; 96374; 96375; 97161; 99285; C1894; G0378; J0282; J0692; J1644; J1650; J1652; J1815; J1938; J1956; J2020; J2060; J2270; J2470; J2543; J2919; J3373; J3430; J3475; J3480; J3486; J3490; J7030; J7060; P9012; Q9967; C1751; J0283; J1308